=== PATIENT | female | born 1950 | race Caucasian/White ===

== ENCOUNTER 2022-11-27 13:03 | Outpatient (OUT) | payer MEDICARE, OTHER, SELFPAY ==
--- NOTE | 2022-11-27 | RT_ITS ---
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 Findings were considered accurate and reproducible. Both pre- and post-bronchodilator values utilized for spirometry. No prior studies available for comparison. Spirometry (based on pre-bronchodilator values): -FEV1/FVC: Normal @ 76% -FEV1: Mildly reduced @ 76% -FVC: Mildly reduced @ 76% -There is no significant bronchodilator response. Lung volumes by plethysmography (based on pre-bronchodilator values): -RV: Normal @ 82% -TLC: Normal @ 87% Diffusion capacity: -DLCO: Mild reduction @ 72% when corrected for Hb 13.9g/dL Flow-volume loop: -Mild restrictive pattern Impressions: -Non-diagnostic spirometry with normal lung volumes and mild diffusion impairment. This pattern can be seen in, but not restricted to, cardiopulmonary vascular disorders, early interstitial lung disease, and early emphysema. Clinical correlation required. Electronically Signed On 11-29-2022 18:04:11 EDT by Channing Pineda
[2022-11-27] MEDS: ALBUTEROL SULFATE 2.5 MG/3 ML VIAL NEB IH (14:00)
== END 2022-11-27 13:04 ==
LOC: CARD 13:05
PROVIDERS: PCP Family Medicine; Visit Provider Internal Medicine Interventional Cardiology
DX: R06.02 Shortness of breath (principal); R94.2 Abnormal results of pulmonary function studies
CPT/HCPCS: 94060; 94726; 94729

== ENCOUNTER → 2022-11-27 | Outpatient (OUT) | payer MEDICARE, OTHER, SELFPAY ==
[2022-11-27 14:42] LABS: Bilirubin Urine NEGATIVE (NEGATIVE); Blood Urine SMALL (NEGATIVE); Clarity Urine CLEAR (CLEAR); Color Urine YELLOW (YELLOW); Glucose Urine UA 500 mg/dL (NEGATIVE); Ketones Urine TRACE mg/dL (NEGATIVE); Leukocyte Esterase Urine MODERATE (NEGATIVE); Nitrite Urine NEGATIVE (NEGATIVE); Protein Urine 100 mg/dL (NEG/TRACE); Specific Gravity Urine >=1.030 (1.005-1.025); pH Urine 5.5 (5.0-9.0)
== END ==
LOC: LAB 13:00
PROVIDERS: PCP Family Medicine; Visit Provider Family Medicine
DX: R30.0 Dysuria (principal)
CPT/HCPCS: 81003; 87086

== ENCOUNTER 2023-01-01 13:54 | Outpatient (OUT) | payer MEDICARE, OTHER, SELFPAY ==
--- NOTE | 2023-01-01 13:57 | XR_ITS ---
The [address] [address] Patient Name: MARIAMA REYES MRN: [id number] date: 1950 Sex: F Assigned Patient Location: [facility] Current Patient Location: [facility] Accession/Order Number: [id number] Exam Date: 01/01/2023 14:06 Report Date: 01/01/2023 14:30 At the request of: GARRISON BELL Procedure: XR abdomen 1V EXAM: XR abdomen 1V HISTORY: Dysuria R30.0 COMPARISON: None. TECHNIQUE: AP view of the abdomen. FINDINGS: Nonobstructive bowel gas pattern is noted. There is no suspicious calcification. The osseous structures are intact. XR/XR abdomen 1V IMPRESSION: Nonobstructive bowel gas pattern. Electronically authenticated by: LUCRECIA LOTT Date: 01/01/2023 14:30
== END 2023-01-01 13:55 | disposition home or self-care (01) ==
LOC: RAD 13:54
PROVIDERS: PCP Family Medicine; Visit Provider Family Medicine
DX: R30.0 Dysuria (principal)
CPT/HCPCS: 74018

== ENCOUNTER 2023-08-16 08:40 | Emergency (ER) | payer MEDICARE, OTHER, SELFPAY ==
[2023-08-16] VITALS (33 sets, daily range): BP systolic 134–178; BP diastolic 59–90; PULSE 69–103; RESP 3–26; TEMP 37.1; O2SAT 90–98; BMI 54.9
--- NOTE | 2023-08-16 08:48 | ED.GENADUL1 ---
HPI - General Adult General Chief complaint: Chest Pain Stated complaint: CHEST PAIN Time Seen by Provider: 08/16/23 08:46 History of Present Illness HPI narrative: Patient is a 72-year-old female who is presenting to the ER with chief complaint of anterior chest wall pain since Saturday. Patient took Tylenol once 3 days ago that did not help, she has not taken anything else for her pain. Patient feels that her pain has increased since approximately 1:00 last night. Patient has pain with deep inspiration, twisting, turning, bending over. Patient does not recall doing any type of heavy lifting, twisting or turning. Patient has mild nausea, no abdominal pain, no bowel or bladder changes. Patient said that she was very sick in May with a lot of other family members. Patient was never seen or evaluated by medical care at that time, patient had flulike symptoms and stayed at home. Patient stated that she was very sedentary for several weeks, 2 to 4 weeks. Patient does use her 2 feet to ambulate, patient does not get around much at home however. Patient is not bedridden. Patient daughter is at bedside, patient's daughter used to be a medical facilities section director. Patient has no headache. Patient has severe pain with minimal, minimal tenderness to palpation to the left anterior chest wall, midsternal and parasternal chest wall. She has no rash. Patient did initially say that she does not think this is musculoskeletal, she knows how it feels, and this is different. However patient has severe pain with minimal, minimal palpation to the anterior chest wall. Patient states the breathing is worse when she is laying down flat, when she sits up in a 90 degree angle the breathing and pain is better, she has been sleeping upright in a bed that can recline upwards. No new swelling to her arms, abdomen, or legs. All systems are negative except as noted/marked. All systems reviewed and otherwise negative. Nurses note and vital signs reviewed and patient is not hypoxic. General: The patient appears well and in no apparent distress. Patient is resting comfortably on cart. Patient is not toxic, lethargic, or listless Skin: Warm, dry, no pallor noted. There is no rash noted. No petechiae, purpura. Head: Normocephalic, atraumatic Eye: Normal conjunctiva, no drainage, EOMI. PERRL Ears, Nose, Mouth, and Throat: oral mucosa is moist. Nares patent. Mouth without vesicles. Cardiovascular: Regular Rate and Rhythm, no murmur, gallop, rub; patient has severe reproducible tenderness to palpation to the left anterior chest wall, midsternal, parasternal anterior chest wall with extremely light palpation. No rash. Patient's pain to the anterior chest wall and ease of breathing is significantly better when she is sitting upright in bed versus laying down. Respiratory: Patient is in no distress, no accessory muscle use, lungs are clear to auscultation, no wheezing, rales or rhonchi Back: non-tender, no CVA tenderness bilaterally to percussion. No CT LS midline pain GI: Soft, obese, no midepigastric tenderness to palpation, no tenderness to palpation, no masses appreciated. No rebound, guarding, or rigidity noted. No distention Musculoskeletal: Patient has full range of motion of all of the extremities, no motor, sensory, or focal neurological deficits Neurological: A&O x4, normal speech Psychiatric: Cooperative Related Data Home Medications Medication Instructions Recorded Confirmed aspirin 81 mg tablet,delayed 81 mg PO DAILY 08/16/23 08/16/23 release (Adult Aspirin Regimen) atorvastatin 80 mg tablet 80 mg PO DAILY 08/16/23 08/16/23 carvedilol 6.25 mg tablet 6.25 mg PO Q12H 08/16/23 08/16/23 cholecalciferol (vitamin D3) 125 125 mcg PO DAILY 08/16/23 08/16/23 mcg (5,000 unit) tablet (Vitamin D3) ezetimibe 10 mg tablet 10 mg PO DAILY 08/16/23 08/16/23 fexofenadine-pseudoephedrine ER 1 tab PO DAILY 08/16/23 08/16/23 180 mg-240 mg tablet,ext.release 24 hr (Nevaeh-D 24 Hour) glipizide 10 mg tablet 5 mg PO DAILY 08/16/23 08/16/23 Allergies Allergy/AdvReac Type Severity Reaction Status Date / Time acetaminophen [From Percocet] AdvReac Mild Nausea Verified 08/16/23 08:53 oxycodone [From Percocet] AdvReac Mild Nausea Verified 08/16/23 08:53 [facility] Medical History (Updated 08/16/23 @ 13:34 by Jacinto Dhaliwal MD) RSV (respiratory syncytial virus infection) ?B33.8 - Other specified viral diseases (ICD-10) Hyperlipidemia ?E78.5 - Hyperlipidemia, unspecified (ICD-10) Hypertension ?I10 - Essential (primary) hypertension (ICD-10) Diabetes ?E11.9 - Type 2 diabetes mellitus without complications (ICD-10) Surgical History (Updated 08/16/23 @ 09:36 by Linette Maldonado) H/O right heart catheterization ?Z98.890 - Other specified postprocedural states (ICD-10) Social History Smoking status: Never smoker Exam Constitutional Vital Signs, click to edit/add: Last Vital Signs Temp 98.7 F 08/16/23 08:47 Pulse 75 08/16/23 13:10 Resp 13 08/16/23 13:10 BP 136/74 08/16/23 13:00 Pulse Ox 97 08/16/23 13:10 O2 Del Method Room Air 08/16/23 09:17 Course Vital Signs Vital signs: Vital Signs Temperature 98.7 F 08/16/23 08:47 Pulse Rate 84 08/16/23 08:47 Respiratory Rate 22 08/16/23 08:47 Blood Pressure 164/90 H 08/16/23 08:47 Pulse Oximetry 95 08/16/23 08:47 Oxygen Delivery Method Room Air 08/16/23 08:47 Temperature 98.7 F 08/16/23 08:47 Pulse Rate 75 08/16/23 13:10 Respiratory Rate 13 08/16/23 13:10 Blood Pressure 136/74 08/16/23 13:00 Pulse Oximetry 97 08/16/23 13:10 Oxygen Delivery Method Room Air 08/16/23 09:17 Medical Decision Making MDM Narrative Medical decision making narrative: Patient does have signs of anterior chest wall pain, also skeletal pain, costochondritis. Patient is breathing easier and the pain is much better when she is sitting upright versus laying down. EKG, IV, lab work was done. D-dimer was elevated, patient had a CT of the chest to rule out PE 1330 patient has no significant findings on her CTA of her chest. Patient has a right soft tissue musculoskeletal mass/hematoma that was discussed at bedside. A copy of patient's CT report was given to her, she will follow-up with her PCP Dr. Campo in the office to have follow-up studies as needed. Education on chest pain, chest wall pain, costochondritis, pleurisy was done at bedside and on discharge paperwork. No questions at discharge. Lab Data Labs: Lab Results 08/16/23 08/16/23 Range/Units 09:15 12:46 WBC 7.0 (4.0-11.0) 10^3/uL RBC 3.79 L (4.20-5.40) 10^6/uL Hgb 11.6 L (12.0-16.0) g/dL Hct 36.1 (36.0-48.0) % MCV 95.3 (81.0-99.0) fL MCH 30.6 (26.7-34.0) pg MCHC 32.1 (29.9-35.2) g/dL RDW 12.3 (11.0-15.0) % Plt Count 214 (150-450) 10^3/uL MPV 10.3 (9.5-13.5) fL Neut % (Auto) 61.6 (43.0-75.0) % Lymph % (Auto) 24.4 (20.5-60.0) % [place] % (Auto) 6.3 (1.7-12.0) % Eos % (Auto) 6.5 (0.9-7.0) % Baso % (Auto) 0.9 (0.2-2.0) % Neut # (Auto) 4.3 (1.4-6.5) 10^3/uL Lymph # (Auto) 1.7 (1.2-3.8) 10^3/uL [place] # (Auto) 0.4 (0.3-0.8) 10^3/uL Eos # (Auto) 0.5 (0.0-0.7) 10^3/uL Baso # (Auto) 0.1 (0.0-0.1) 10^3/uL Abs Immat Gran (auto) 0.02 (0.00-0.03) 10^3/uL Imm/Tot Granulo (auto) 0.3 (0.0-0.5) % D-Dimer 0.72 H* (<=0.59) mg/L FEU Sodium 144 (136-145) mmol/L Potassium 4.3 (3.5-5.1) mmol/L Chloride 106 (98-107) mmol/L Carbon Dioxide 28.5 (21.0-32.0) mmol/L Anion Gap 13.8 BUN 23.0 H (7.0-18.0) mg/dL Creatinine 1.21 H (0.55-1.02) mg/dL Est GFR ( Amer) 53 L (>=60) Est GFR (Non-Af Amer) 44 L (>=60) BUN/Creatinine Ratio 19.0 Glucose 214 H (74-106) mg/dL Calcium 9.1 (8.5-10.1) mg/dL Total Bilirubin 0.6 (0.2-1.0) mg/dL AST 17 (15-37) U/L ALT 22 (14-59) U/L Alkaline Phosphatase 100 (46-116) U/L Troponin I High Sens 12.0 (4.0-51.3) pg/mL NT-Pro-B Natriuret Pep 447.0 (<=900.0) pg/mL Total Protein 6.8 (6.4-8.2) g/dL Albumin 3.1 L (3.4-5.0) g/dL Globulin 3.7 g/dL Albumin/Globulin Ratio 0.8 Lipase 15.0 L (16.0-77.0) U/L POC Glucose 191 H (74-106) mg/dL ECG Data Attestation: I personally reviewed and interpreted this ECG as follows: (EKG interpretation. Normal sinus rhythm 84 bpm. Left axis deviation. No acute ST elevation, no acute ectopy. QTc of 403. Artifact noted,) Discharge Plan Discharge Chief Complaint: Chest Pain Clinical Impression: Acute chest wall pain, Mass of soft tissue, Chest pain, Acute costochondritis Patient Disposition: Home, Self-Care Condition: Fair Prescriptions / Home Meds: No Action glipizide 10 mg tablet 5 mg PO DAILY ezetimibe 10 mg tablet 10 mg PO DAILY carvedilol 6.25 mg tablet 6.25 mg PO Q12H atorvastatin 80 mg tablet 80 mg PO DAILY aspirin [Adult Aspirin Regimen] 81 mg tablet,delayed release (DR/EC) 81 mg PO DAILY cholecalciferol (vitamin D3) [Vitamin D3] 125 mcg (5,000 unit) tablet 125 mcg PO DAILY fexofenadine-pseudoephedrine [Nevaeh-D 24 Hour] 180-240 mg tablet extended release 24 hr 1 tab PO DAILY Instructions: Chest Pain (ED), Pleurisy (ED), Costochondritis (ED), Chest Wall Pain (ED), Hematoma (ED) Additional Instructions: Follow-up with Dr. Campo. A copy of CT of the chest report was given to. Review this with Dr. Campo for follow-up future follow-up studies of right soft tissue mass/hematoma. Use Tylenol as needed for pain. Use ice 20 minutes on, 20 minutes off. Education on pleurisy was given to you for educational purposes only. Stand Alone Forms: Portal Instructions Referrals: Giana Campo MD [Primary Care Provider] - 1 week
--- NOTE | 2023-08-16 08:56 | ECG_ITS ---
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
--- NOTE | 2023-08-16 08:56 | XR_ITS ---
The [address] [address] Patient Name: MARIAMA REYES MRN: [id number] date: 1950 Sex: F Assigned Patient Location: ER Current Patient Location: ER Accession/Order Number: [id number] Exam Date: 08/16/2023 09:35 Report Date: 08/16/2023 09:47 At the request of: ESTHER NOLASCO Procedure: XR chest 2V EXAM: XR chest 2V HISTORY: cp COMPARISON: None. TECHNIQUE: PA and lateral views of the chest. FINDINGS: The cardiomediastinal silhouette is normal. No focal consolidation is identified. There is no pneumothorax. No pleural effusion is noted. The osseous structures are intact. XR/XR chest 2V IMPRESSION: No acute cardiopulmonary process. Electronically authenticated by: LUCRECIA LOTT Date: 08/16/2023 09:47
[2023-08-16 09:21] LABS: Basophils Absolute Auto 0.1 10^3/uL (0.0-0.1); Basophils Percent Auto 0.9 % (0.2-2.0); Eosinophils Absolute Auto 0.5 10^3/uL (0.0-0.7); Eosinophils Percent Auto 6.5 % (0.9-7.0); Hematocrit 36.1 % (36.0-48.0); Hemoglobin 11.6 g/dL (12.0-16.0); Immature Granulocytes Abs Auto 0.02 10^3/uL (0.00-0.03); Immature Granulocytes Pct Auto 0.3 % (0.0-0.5); Lymphocytes Absolute Auto 1.7 10^3/uL (1.2-3.8); Lymphocytes Percent Auto 24.4 % (20.5-60.0); Mean Corpuscular HGB Conc 32.1 g/dL (29.9-35.2); Mean Corpuscular Hemoglobin 30.6 pg (26.7-34.0); Mean Corpuscular Volume 95.3 fL (81.0-99.0); Mean Platelet Volume 10.3 fL (9.5-13.5); Monocytes Absolute Auto 0.4 10^3/uL (0.3-0.8); Monocytes Percent Auto 6.3 % (1.7-12.0); Neutrophils Absolute Auto 4.3 10^3/uL (1.4-6.5); Neutrophils Percent Auto 61.6 % (43.0-75.0); Platelet Count 214 10^3/uL (150-450); Red Blood Count 3.79 10^6/uL (4.20-5.40); Red Cell Distribution Width 12.3 % (11.0-15.0)
[2023-08-16 09:39] LABS: Alanine Aminotransferase 22 U/L (14-59); Albumin Globulin Ratio 0.8; Albumin Level 3.1 g/dL (3.4-5.0); Alkaline Phosphatase 100 U/L (46-116); Anion Gap 13.8; Aspartate Amino Transferase 17 U/L (15-37); Bilirubin Total 0.6 mg/dL (0.2-1.0); Calcium 9.1 mg/dL (8.5-10.1); Carbon Dioxide 28.5 mmol/L (21.0-32.0); Chloride 106 mmol/L (98-107); Estimated GFR (African America 53 (>=60); Estimated GFR (Non-African Ame 44 (>=60); Globulin 3.7 g/dL; Glucose 214 mg/dL (74-106); Potassium 4.3 mmol/L (3.5-5.1); Sodium 144 mmol/L (136-145); Total Protein 6.8 g/dL (6.4-8.2)
[2023-08-16] MEDS: KETOROLAC TROMETHAMINE 30 MG/ML VIAL 15 MG IVP (09:44)
[2023-08-16] MEDS: MORPHINE SULFATE 2 MG/ML SYRINGE IV (09:44)
[2023-08-16] MEDS: ASPIRIN 81 MG TAB.CHEW PO (09:44)
[2023-08-16 10:00] LABS: D Dimer 0.72 mg/L FEU (<=0.59)
--- NOTE | 2023-08-16 10:01 | CT_ITS ---
[address] [address] Patient Name: MARIAMA REYES MRN: [id number] date: 1950 Sex: F Assigned Patient Location: ER Current Patient Location: Accession/Order Number: [id number] Exam Date: 08/16/2023 10:55 Report Date: 08/16/2023 11:52 At the request of: ESTHER NOLASCO Procedure: CT angio chest EXAM: CT angio chest HISTORY: ddimer elevated chest pain COMPARISON: Chest study performed earlier today on 08/16/2023 TECHNIQUE: CT angiography chest study was performed with the use of intravenous contrast. Multiple axial images were obtained. Reformatted coronal and sagittal images were obtained. FINDINGS: There is a mild degree of motion artifact noted. No obvious focal filling defects seen within the pulmonary arteries to suggest emboli. Mild atherosclerotic calcification within a portion of the thoracic aortic arch. No evidence of thoracic aortic aneurysm, dissection or leak. No evidence of mediastinal, hilar or axillary lymphadenopathy. Visualized thyroid gland appears grossly unremarkable. Mild generalized groundglass density bilaterally, consider atelectatic and/or infiltrative changes. Areas of mild reticular density in the left lower lung field compatible with atelectatic and/or fibrotic changes. No significant pleural thickening. No evidence of pleural effusion. Bony chest wall appears grossly intact. Soft tissue prominence in the musculature on the right external to the bony thorax which may represent hematoma, mass is not excluded. Finding is noted on series 4 axial image 47 and series 7 and coronal image 42. There is soft tissue prominence measures approximately 4.1 x 2.6 x 4.1 cm in longitudinal, transverse and AP dimensions. Correlate clinically. Follow-up as needed. Rtfk-wj-rseipexx degenerative changes in the dorsal spine with slight convexity to the right. Mild elevation the right hemidiaphragm similar to prior study. CT/CT angio chest IMPRESSION: CT angiography chest study fails to demonstrate obvious pulmonary emboli. Atelectatic and/or infiltrative changes bilaterally as noted. Soft tissue prominence related to musculature on the right adjacent to the outer margin of the bony thorax which may represent hematoma, mass would be less likely though not excluded. Correlate clinically. Follow-up as needed. Electronically authenticated by: MANISHA LAY Date: 08/16/2023 11:52
[2023-08-16 12:48] LABS: Glucometer 191 mg/dL (74-106)
== END 2023-08-16 13:51 | disposition home or self-care (01) ==
PROVIDERS: Emergency Provider Emergency Medicine; PCP Family Medicine
DX: R07.89 Other chest pain (principal); R22.2 Localized swelling, mass and lump, trunk; Z79.82 Long term (current) use of aspirin; M94.0 Chondrocostal junction syndrome [Tietze]; Z79.84 Long term (current) use of oral hypoglycemic drugs; E78.5 Hyperlipidemia, unspecified; I10 Essential (primary) hypertension; E11.9 Type 2 diabetes mellitus without complications
CPT/HCPCS: 36415; 36416; 71046; 71275; 80053; 82948; 83690; 83880; 84484; 85025; 85378; 93005; 96374; 96375; 99285; J1885; J2270; Q9967

== ENCOUNTER 2023-09-12 13:25 | Outpatient (OUT) | payer MEDICARE, OTHER, SELFPAY ==
--- NOTE | 2023-09-12 13:29 | CT_ITS ---
[address] [address] Patient Name: MARIAMA REYES MRN: [id number] date: 1950 Sex: F Assigned Patient Location: CT Current Patient Location: Accession/Order Number: [id number] Exam Date: 09/12/2023 14:00 Report Date: 09/13/2023 06:47 At the request of: GARRISON BELL Procedure: CT chest wo/w con EXAMINATION: CT chest wo/w con HISTORY: Mass Of Right Axilla, Mass Of Chest Wall COMPARISON: CTA chest 08/16/2023 TECHNIQUE: Multi-planar CT images were obtained without and/or with IV contrast as indicated by examination type. Axial, Coronal, and Sagittal images. Dose reduction techniques were achieved by using automated exposure control and/or adjustment of mA and/or kV according to patient size and/or use of iterative reconstruction technique. FINDINGS: LUNGS: No visible pulmonary disease. PLEURA: No mass, effusion, or pneumothorax. VASCULATURE: No abnormality. LOPEZ: No mass or adenopathy. MEDIASTINUM: No mass or adenopathy. CARDIAC: No enlargement, pericardial thickening, or significant calcification. AORTA: No aneurysm or dissection. CHEST WALL: Asymmetric prominence of the musculature along the lateral right chest wall compared to left due to the serratus anterior musculature. BONES: No bone lesion or fracture. LIMITED ABDOMEN: No suspicious findings Limited images of the upper abdomen. OTHER: Negative. CT/CT chest wo/w con IMPRESSION: 1. Suspect incidental asymmetric appearance of lateral chest wall musculature of doubtful clinical significance. Remote intramuscular hematoma is not excluded but felt less likely. Electronically authenticated by: MIGUEL ANGEL CABALLERO Date: 09/13/2023 06:47
== END 2023-09-12 13:26 | disposition home or self-care (01) ==
LOC: CT 13:25
PROVIDERS: PCP Family Medicine; Visit Provider Family Medicine
DX: R22.31 Localized swelling, mass and lump, right upper limb (principal); R22.2 Localized swelling, mass and lump, trunk
CPT/HCPCS: 71270; Q9967

== ENCOUNTER 2023-09-20 08:49 | Outpatient (OUT) | payer MEDICARE, OTHER, SELFPAY ==
--- NOTE | 2023-09-20 09:00 | NM_ITS ---
Patient Name: MARIAMA REYES MR#: [id number] : 1950 Exam Date: 09/20/2023 Ordering Doctor: DANIELA COE M.D. RADIOLOGY REPORT PROCEDURE: NM YOEL PERF SPECT REST STR COMPARISON: None. INDICATIONS: DYSPNEA, CHEST PAIN TECHNIQUE: Exam Description: Stress/Rest two day protocol gated SPECT Rest Imagin.6 mCi Tc-99m Cardiolite IV on 09/20/2023 Stress Imaging 25.9 mCi Tc-99m Cardiolite IV on 10/07/2023 Exercise Protocol: 0.4 mg Lexiscan given IV Heart Rate (bpm): Rest: 81 Max: 97 PMHR: 65 Blood Pressure: Rest: 130/74 Max: 142/84 Symptoms: Rest and peak stress ECG findings were pending and the exercise portion of the study was pending per attending physician Dr. SAMPSON . For more details please see separate cardiac stress test report. FINDINGS: QUALITY OF STUDY: Good. PERFUSION DEFECT: LOCATION: Basal anterior. Mid-anterior. SIZE: Small (1-2 segments). SEVERITY: Mild. TYPE: Reversible. WALL MOTION: Normal. LV SIZE: Normal. 89 mL. TID / TCD: None; 1.0 LVEF: Normal. Calculated EF 70%. SUMMARY: Myocardial perfusion imaging study has ABNORMAL findings. CONCLUSION: 1. Small area of mildly decreased uptake in the anterior wall on stress images with reversibility on rest images, LAD distribution. Consider follow-up for further evaluation 2. Pending exercise test results Dictated by: Hema Julien MD on 10/07/2023 at 12:54 Approved by: Hema Julien MD on 10/07/2023 at 13:03
--- OUTSIDE RECORDS SUMMARY | 2023-09-20 09:10 | XMS_ITS | CCD ---
Author Organization [facility] Care Team Providers Care Patient Registration Clerk Name Role Phone Zena García Unavailable Jazz Nance Unavailable Eric Villanueva Unavailable MD Giana Bell Primary Care Provider MD Eric Villanueva Attending Provider GIANA BELL Primary Care Physician ZENA POTTER Attending Unavailable Giana Bell Unavailable Alka Hankins Unavailable MD Giana Bell Primary Care Provider [phone] MD Alka Hankins Attending Provider [phone] MD Eric Villanueva Attending Provider ANGELO García Attending Provider DR GIANA BELL Admitting Unavailable RAY, DR GIANA Jefferson Primary Care Unavailable [place], DR ANN MRAIE Gibbons Consulting Unavailable RAY, DR GIANA Jefferson Attending Unavailable RAY, DR GIANA Jefferson Consulting Unavailable BELL, DR GIANA Jefferson Admitting Unavailable BELL, DR GIANA Jefferson Consulting Unavailable BELL, DR GIANA Jefferson Primary Care Unavailable BELL, DR GIANA Jefferson Attending Unavailable RAY, DR GIANA Jefferson Primary Care Unavailable RIMA LOUIS Consulting Unavailable RIMA LOUIS Attending Unavailable RIMA LOUIS Admitting Unavailable RAY, DR GIANA Jefferson Primary Care Unavailable ERYN, DR RONALD De Guzman Attending Unavailable ERYN, DR RONALD De Guzman Admitting Unavailable COURTNEY, DR LUCRECIA Ellis Consulting Unavailable ERYN, DR RONALD De Guzman Consulting Unavailable YONIS PACHECO Consulting Unavailable RAY, DR GIANA Jefferson Primary Care Unavailable RAY, DR GIANA Jefferson Consulting Unavailable BELL, DR GIANA Jefferson Attending Unavailable BELL, DR GIANA Jefferson Admitting Unavailable BELL, DR GIANA Jefferson Admitting Unavailable BELL, DR GIANA Jefferson Primary Care Unavailable BELL, DR GIANA Jefferson Attending Unavailable ADA, DR MIGUEL ANGEL Ellis Consulting Unavailable BELL, DR GIANA Jefferson Consulting Unavailable ANN MARIE TINEO Consulting Unavailable BELL, DR GIANA Jefferson Admitting Unavailable BELL, DR GIANA Jefferson Primary Care Unavailable BELL, DR GIANA Jefferson Consulting Unavailable BELL, DR GIANA Jefferson Attending Unavailable WEI REED Consulting Unavailable BELL, DR GIANA Jefferson Primary Care Unavailable RIMA LOUIS Consulting Unavailable RIMA LOUIS Attending Unavailable RIMA LOUIS Admitting Unavailable BELL, DR GIANA Jefferson Admitting Unavailable BELL, DR GIANA Jefferson Primary Care Unavailable BELL, DR GIANA Jefferson Attending Unavailable MD Giana Bell Primary Care Provider MD Eric Villanueva Attending Provider [phone] MD Giana Bell Primary Care Provider MD Eric Villanueva Attending Provider Eric Villanueva Admitting Unavailable Bell, Giana E Primary Care Unavailable Eric Villanueva Attending Unavailable Alka Hankins Admitting Unavailable Alka Hankins Attending Unavailable Bell, Giana E Primary Care Unavailable Zena García Admitting Unavailable Zena García Attending Unavailable Bell, Giana E Primary Care Unavailable Eric Villanueva Attending Unavailable Bell, Giana E Primary Care Unavailable Kay, Eric Admitting Unavailable Bell, Giana E Primary Care Unavailable Eric Villanueva Attending Unavailable Kay, Eric Admitting Unavailable Kay, Eric Attending Unavailable Kay, Eric Admitting Unavailable Bell, Giana E Primary Care Unavailable Eric Villanueva Attending Unavailable Kay, Eric Admitting Unavailable Bell, Giana E Primary Care Unavailable Eric Villanueva Attending Unavailable Kay, Eric Admitting Unavailable Bell, Giana E Primary Care Unavailable RIMA LOUIS Attending Unavailable DANIELA HENDRICKS Attending Unavailable JAX TORRES Attending Unavailable Allergies Allergy Classification Reported Allergen(s) Allergy Type Date of Onset Reaction(s) Facility (20 sources) Acetaminophen / oxyCODONE; Translations: [acetaminophen-o xycodone] Drug Allergy 01-21-20 19 Unknown (qualifier value) [facility] (6 sources) oxyCODONE; Translations: [oxycodone] Drug Allergy 03-20-20 22 Vomiting, constipation [facility] (6 sources) Propoxyphene; Translations: [propoxyphene] Drug Allergy 03-20-20 22 Vomiting [facility] (2 sources) acetaminophen / propoxyphene; Translations: [acetaminophen-p ropoxyphene] Drug Allergy Unknown (qualifier value) [facility] (2 sources) Acetaminophen / oxyCODONE; Translations: [Percocet] Drug Allergy 07-28-19 21 [facility] (11 sources) Lisinopril Drug Allergy 01-20-20 19 Unknown [facility] Other (11 sources) metFORMIN Drug Allergy 01-20-20 19 Unknown [facility] Other (11 sources) NITROFURANTOIN, MACROCRYSTALS / Nitrofurantoin, Monohydrate Drug Allergy Unknown [facility] Other (3 sources) Allergies Reconciled Propensity to adverse reactions Unknown Chewse Other (3 sources) patient allergy list reviewed by nurse or physicia Propensity to adverse reactions 01-21-20 Comment:Done Chewse Other (11 sources) Darvocet A500 *ANALGESICS - OPIOID* Propensity to adverse reactions 01-21-20 19 Unknown [facility] Other (1 source) Acetaminophen / oxyCODONE; Translations: [OXYCODONE-ACETA MINOPHEN] Drug Allergy 09-07-19 [facility] (1 source) ADHESIVE TAPE-SILICONES; Translations: [ADHESIVE TAPE-SILICONES] Propensity to adverse reactions to drug (disorder) 08-04-19 03 [facility] (1 source) PROPOXYPHENE N-ACETAMINOPHEN; Translations: [PROPOXYPHENE N-ACETAMINOPHEN] Propensity to adverse reactions to drug (disorder) 09-07-19 21 [facility] Medications Current Medications Medication Drug Class(es) Dates Sig (Normalized) Sig (Original) Nevaeh Allergy 180 MG (11 sources) take 1 tablet by mouth once daily Nevaeh Allergy 180 MG 1 tablet Swallow whole with water; do not take with fruit juices. Orally Once a day Active Aspir-81 (20 sources) Aspir-81 Active aspirin 81 mg chewable tablet (17 sources) Platelet Aggregation Inhibitor, Nonsteroidal Anti-inflammatory Drug Start: 02-12-2023 take 1 tablet by mouth once daily Aspirin (Baby Aspirin) 81 mg Tablet,Chewable Active 81 MG PO Daily February 11, 2023 11:00pm take 1 tablet by mouth once ainsley y Aspir-Low 81 MG 1 tablet Orally Once a day Active atorvastatin 80 mg oral tablet (20 sources) HMG-CoA Reductase Inhibitor Start: 12-13-2020 take 80 mg by mouth once daily Atorvastatin Active 80 MG PO Daily December 12, 2020 11:00pm azithromycin 250 mg oral tablet (4 sources) Macrolide Antimicrobial Start: 06-07-2023 Azithromycin 250 MG as directed Orally 2 tabs po today, then 1 tab daily x 4 more days for 5 May, Active Start: 01-03-2022 Azithromycin 2 50 MG 2 tablet on the first day, then 1 tablet daily for 4 days Orally Once a day for 5 day(s) Dec, Active carvedilol 3.125 mg oral tablet (20 sources) alpha-Adrenergic Monika, beta-Adrenergic Monika Start: 08-07-2022 take 6.25 mg by mouth twice daily Carvedilol Active 6.25 MG PO Twice daily August 07, 2022 12:00am take 1 tablet by michael th every twelve hours Carvedilol 6.25 MG 1 tablet with food Orally Twice a day Active cholecalciferol 0.125 mg oral tablet (3 sources) Vitamin D Start: 02-12-2023 take 1 tablet by mouth once daily Cholecalciferol (Vitamin D3) (Vitamin D3) 125 mcg (5,000 unit) Tablet Active 5000 UNIT PO Daily February 11, 2023 11:00pm ciprofloxacin 250 mg oral tablet (6 sources) Quinolone Antimicrobial take 1 tablet by mouth every twelve hours Ciprofloxacin HCl 250 MG 1 tablet Orally every 12 hrs for 7 days Active estradiol 0.1 mg/g vaginal cream (1 source) Start: 08-16-2021 estradiol 0.1 mg/g vaginal cream 1 gm, Vaginal, MonThu, # 42.5 gm, Refills(s) 3, Pharmacy: [facility] [place] [address], 160, cm, 08/16/21 15:10:00 EST, Height/Length Dosing, 130, kg, 08/16/21 15:10:00 EST, Weight Dosing Start Date: 08/16/21 Status: Ordered ezetimibe 10 mg oral tablet (20 sources) Dietary Cholesterol Absorption Inhibitor Start: 08-07-2022 take 1 tablet by mouth once daily Ezetimibe (Zetia) 10 mg Tablet Active 10 MG PO Daily August 07, 2022 12:00am Start: 08-07-2022 take 1 tablet by michael th twice daily Ezetimibe (Zetia) 10 mg Tablet Active 10 MG PO Twice daily August 07, 2022 1:00am fexofenadine hydrochloride 180 mg oral tablet (6 sources) Histamine-1 Receptor Antagonist Start: 02-12-2023 take 1 tablet by mouth once daily Fexofenadine (Nevaeh) 180 mg Tablet Active 180 MG PO Daily February 11, 2023 11:00pm gabapentin 300 mg oral capsule (4 sources) Anti-epileptic Agent Start: 03-12-2022 take 1 capsule by mouth every twelve hours Gabapentin 300 MG 1 capsule Orally Twice a day for 30 day(s) Feb, Active glipiZIDE er 5 mg 24 hr extended release oral tablet (20 sources) Sulfonylurea Start: 08-07-2022 take 5 mg by mouth once daily Glipizide Active 5 MG PO Daily August 07, 2022 12:00am take 1 tablet by michael th 30 minutes before breakfast glipiZIDE 10 MG TAKE 1 TABLET BY MOUTH 3 0 MINUTES BEFORE BREAKFAST for 90 days Active take 1 tablet by michael th once daily 30 minutes before breakfast glipiZIDE 5 MG 1 tablet 30 minutes befor e breakfast Orally Once a day for 90 days Active Insulin Nph And Regular Antonette n (20 sources) Insulin Start: 02-12-2023 Insulin Nph An d Regular Human (Novolin 70-30 Flexpen U-100) 100 unit/mL (70-30) Insulin Pen Active 25 UNIT SUBCUT Daily February 11, 2023 11:00pm Start: 02-12-2023 Insulin Nph An d Regular Human (Novolin 70-30 Flexpen U-100) 100 unit/mL (70-30) Insulin Pen Active 25 UNIT SUBCUT Daily February 12, 2023 12:00am NovoLIN 70/30 (7 0-30) 100 UNIT/ML 25u Subcutaneous daily Active NovoLIN 70/30 (7 0-30) 100 UNIT/ML as directed Subcutaneous Active Novalin (1 source) Start: 08-16-2021 Novgabriele Nails n Start Date: 08/16/21 Status: Ordered ondansetron 4 mg disintegrating oral tablet (20 sources) Serotonin-3 Receptor Antagonist Start: 12-05-2022 take 1 tablet by mouth three times daily as needed Ondansetron 4 MG 1 tablet on the tongue and allow to dissolve Orally tid prn for 5 Nov, Active Start: 07-23-2021 End: 08-07-2022 take 4 mg by mouth four times daily Ondansetron Discontinued 4 MG PO Four times daily July 23, 2021 12:00am August 07, 2022 7:18am Start: 12-31-2020 End: 07-23-2021 take 4 mg by mouth every eight hours Ondansetron Discontinued 4 MG PO Q8H 14 December 30, 2020 11:00pm July 23, 2021 1:44pm Start: 12-13-2020 End: 12-30-2020 take 1 tablet by mouth three times daily Ondansetron Hcl (Zofran) 4 mg tablet Discontinued 4 MG PO Three times daily 9 3 December 12, 2020 11:00pm December 30, 2020 4:28am predniSONE 20 mg oral tablet (1 source) Start: 01-03-2022 take 1 tablet by mouth every twelve hours predniSONE 20 MG 1 tablet Orally 2 times a day for 5 day(s) Dec, Active Vitamin D-3 125 MCG (5000 UT) (20 sources) Vitamin D-3 125 MCG (5000 UT) as directed Orally Active Vitamin D3 5000 intl units oral tab (1 source) Start: 08-16-2021 take 1 tablet by mouth once daily Vitamin D3 5000 intl units oral tab mcg tab(s), Oral, Daily, Refills(s) 0 Start Date: 08/16/21 Status: Ordered Completed/Discontinued Medications Medication Drug Class(es) Dates Sig (Normalized) Sig (Original) acetaminophen 325 mg / HYDROcodone bitartrate 5 mg oral tablet (5 sources) Opioid Agonist Start: 07-23-2021 End: 08-07-2022 take 1 tablet by mouth every six hours Hydrocodone-Acetam inophen Discontinued 1 TAB PO Q6H 10 July 23, 2021 August 07, 2022 7:18am cefdinir 300 mg oral capsule (5 sources) Cephalosporin Antibacterial Start: 12-31-2020 End: 07-23-2021 take 300 mg by mouth twice daily Cefdinir Discontinued 300 MG PO Twice daily 12 04December 30, 2020 11:00pm July 23, 2021 1:44pm cephalexin 500 mg oral capsule (10 sources) Cephalosporin Antibacterial Start: 07-23-2021 End: 08-07-2022 take 500 mg by mouth every eight hours Cephalexin Discontinued 500 MG PO Q8H 22 04July 23, 2021 12:00am August 07, 2022 7:21am Start: 12-13-2020 End: 12-30-2020 take 500 mg by mouth twice daily Cephalexin Discontinued 500 MG PO Twice daily 12 04December 12, 2020 11:00pm December 30, 2020 4:28am cyclobenzaprine hydrochloride 5 mg oral tablet (9 sources) Muscle Relaxant Start: 08-14-2022 take 1 tablet by mouth every twenty-four hours Cyclobenzaprine HCl 5 MG 1 tablet as needed Orally Once a day for 30 days Jul, Not-Taking dapagliflozin 5 mg oral tablet (7 sources) Sodium-Glucose Cotransporter 2 Inhibitor Start: 12-13-2020 End: 12-31-2020 take 1 tablet by mouth once daily Dapagliflozin Propanediol (Farxiga) 5 mg tablet Discontinued 5 MG PO Daily December 12, 2020 11:00pm December 31, 2020 1:36pm Durolane (20 sources) Start: 02-27-2022 Durolane Feb, 60 mg Insulin Nph And Regular Human (5 sources) Start: 12-30-2020 End: 02-12-2023 inject 25 [IU] by subcutaneous injection once daily Insulin Nph And Regular Human Discontinued 25 UNIT SUBCUT Daily December 29, 2020 11:00pm February 12, 2023 8:58am Start: 12-30-2020 End: 02-12-2023 inject 25 [IU] by subcutaneous injection once daily Insulin Nph And Regular Human Discontinued 25 UNIT SUBCUT Daily December 30, 2020 12:00am February 12, 2023 9:58am Start: 12-30-2020 inject 25 [IU] by sosa bcutaneous injection once daily Insulin Nph And Regular Human Active 25 UNIT SUBCUT Daily December 30, 2020 12:00am Start: 12-30-2020 inject 25 [IU] by sosa bcutaneous injection once daily Insulin Nph And Regular Human Active 25 UNIT SUBCUT Daily December 29, 2020 11:00pm nitrofurantoin, macrocrystals 25 mg / nitrofurantoin, monohydrate 75 mg oral capsule (5 sources) Nitrofuran Antibacterial Start: 12-13-2020 End: 12-13-2020 take 100 mg by mouth twice daily Nitrofurantoin Monohyd/M-Cryst Discontinued 100 MG PO Twice daily December 12, 2020 11:00pm December 13, 2020 8:52pm pregabalin 75 mg oral capsule (13 sources) Start: 10-23-2022 End: 02-12-2023 take 75 mg by mouth once daily Pregabalin Discontinued 75 MG PO Daily October 22, 2022 11:00pm February 12, 2023 8:57am Start: 08-28-2022 [facility] Lyrica 75 MG 1 capsule Orally Twice a day for 90 days Aug, Active promethazine hydrochloride 12.5 mg oral tablet (5 sources) Phenothiazine Start: 12-13-2020 End: 12-30-2020 take 12.5 mg by mouth three times daily Promethazine Discontinued 12.5 MG PO Three times daily December 12, 2020 11:00pm December 30, 2020 4:28am traMADol hydrochloride 50 mg oral tablet (20 sources) Opioid Agonist Start: 02-27-2022 take 1 tablet by mouth every twenty-four hours traMADol HCl 50 MG 1 tablet as needed Orally Once a day for 3 days Feb, Not-Taking/PRN triamcinolone acetonide 40 mg/ml injectable suspension (20 sources) Corticosteroid Start: 10-09-2022 Kenalog-40 Sep, 20 mg Start: 02-06-2022 Kenalog-40 October, 40 mg Start: 08-08-2021 Kenalog -40 mg Jul, 40 mg Start: 03-22-2021 Kenalog -40 mg Feb, 40 mg Start: 11-16-2020 Kenalog -40 mg October, 40 mg Problems Active Problems Problem Classification Problem Date Documented Date Episodic/Chronic Abdominal pain (6 sources) Pelvic and perineal pain; Translations: [Pelvic and perineal pain] Episodic Acute bronchitis (7 sources) Acute bronchitis due to respiratory syncytial virus; Translations: [Acute bronchiolitis due to respiratory syncytial virus] Onset: 2 Episodic Asthma (3 sources) Uncomplicated asthma; Translations: [Unspecified asthma, uncomplicated] Chronic Chronic obstructive pulmonary disease and bronchiectasis (4 sources) Bronchitis, not specified as acute or chronic; Translations: [Bronchitis] Onset: 2 Resolved: 2 Episodic Coronary atherosclerosis and other heart disease (2 sources) 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; Translations: [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] Onset: 2 Chronic Diabetes mellitus with complications (20 sources) Type 2 diabetes mellitus; Translations: [Type 2 diabetes mellitus with hyperglycemia] Onset: 3 Chronic Diabetes mellitus without complication (4 sources) Diabetes mellitus; Translations: [Type 2 diabetes mellitus without complication] Onset: 9 08-16-2021 Chronic Diabetes mellitus without complication (5 sources) Hyperglycemia; Translations: [Hyperglycemia, unspecified] 12-13-2020 Episodic Disorders of lipid metabolism (20 sources) Hypercholesterolemia; Translations: [Mixed hyperlipidemia] Onset: 9 08-16-2021 Chronic Essential hypertension (20 sources) Essential hypertension; Translations: [Essential (primary) hypertension] Onset: 3 Chronic Genitourinary symptoms and ill-defined conditions (14 sources) Increased frequency of urination; Translations: [Urinary symptoms ] 08-16-2021 Episodic Glaucoma (1 source) Glaucoma 08-16-2021 Chronic Hypertension with complications and secondary hypertension (6 sources) Hypertensive urgency; Translations: [Hypertensive urgency ] Onset: 2 Chronic Immunizations and screening for infectious disease (3 sources) Vaccination given; Translations: [Encounter for immunization] Episodic Inflammation; infection of eye (except that caused by tuberculosis or sexually transmitteddisease) (3 sources) Conjunctivitis; Translations: [Unspecified conjunctivitis] Episodic Malaise and fatigue (3 sources) Fatigue; Translations: [Other fatigue] Episodic Menopausal disorders (4 sources) Menopausal problem; Translations: [Atrophic vaginitis] 08-16-2021 Chronic Mood disorders (3 sources) Major depression, single episode; Translations: [Major depressive disorder, single episode, unspecified] Chronic Nausea and vomiting (4 sources) Nausea with vomiting, unspecified; Translations: [Nausea] Episodic Noninfectious gastroenteritis (1 source) Noninfective gastroenteritis and colitis, unspecified Episodic Nonspecific chest pain (9 sources) Chest pain, unspecified; Translations: [Chest pain] Onset: 2 Episodic Osteoarthritis (20 sources) Osteoarthritis of left knee joint; Translations: [Unilateral primary osteoarthritis, left knee] Onset: 1 Resolved: 2 Chronic Other acquired deformities (20 sources) Lumbar spondylolisthesis; Translations: [Spondylolisthesis, lumbar region] Episodic Other aftercare (20 sources) Long-term current use of insulin; Translations: [long term acute care registered nurse (current) use of insulin] Episodic Other aftercare (2 sources) long term acute care registered nurse (current) use of insulin Episodic Other circulatory disease (3 sources) Elevated blood-pressure reading without diagnosis of hypertension; Translations: [Elevated blood-pressure reading, without diagnosis of hypertension] Episodic Other connective tissue disease (20 sources) History of total knee arthroplasty; Translations: [Presence of right artificial knee joint] Chronic Other connective tissue disease (2 sources) Presence of right artificial knee joint; Translations: [History of total right knee replacement Z96.651] Onset: 1 Resolved: 2 Chronic Other connective tissue disease (1 source) Other enthesopathies, not elsewhere classified Episodic Other connective tissue disease (3 sources) Muscle pain; Translations: [MYALGIA, UNSPECIFIED SITE] Episodic Other connective tissue disease (11 sources) Trochanteric bursitis; Translations: [Trochanteric bursitis, unspecified hip] Episodic Other connective tissue disease (3 sources) Trochanteric bursitis, unspecified hip Episodic Other diseases of kidney and ureters (1 source) Kidney disease 08-16-2021 Episodic Other ear and sense organ disorders (3 sources) Otitis externa of right ear; Translations: [Unspecified otitis externa, right ear] Chronic Other lower respiratory disease (1 source) Dyspnea on exertion 08-16-2021 Episodic Other lower respiratory disease (3 sources) Dyspnea; Translations: [Other forms of dyspnea] Episodic Other nervous system disorders (20 sources) Chronic pain; Translations: [Other chronic pain] Chronic Other nervous system disorders (20 sources) Carpal tunnel syndrome of left wrist; Translations: [Carpal tunnel syndrome, left upper limb] Chronic Other nervous system disorders (6 sources) Other chronic pain Onset: 2 Resolved: 2 Chronic Other nervous system disorders (18 sources) Carpal tunnel syndrome; Translations: [Carpal tunnel syndrome, left upper limb] Chronic Other nervous system disorders (1 source) Carpal tunnel syndrome, left upper limb Chronic Other nervous system disorders (1 source) Other chronic pain; Translations: [Other chronic pain] Onset: 3 Chronic Other non-traumatic joint disorders (1 source) Pain in left wrist Episodic Other non-traumatic joint disorders (3 sources) Shoulder joint pain; Translations: [Pain in left shoulder] Episodic Other non-traumatic joint disorders (3 sources) Pain in right hip joint; Translations: [Pain in right hip] Episodic Other nutritional; endocrine; and metabolic disorders (4 sources) Body mass index 40+ - severely obese; Translations: [Body mass index (BMI) 50.0-59.9, adult] 08-16-2021 Chronic Other nutritional; endocrine; and metabolic disorders (3 sources) Morbid (severe) obesity due to excess calories; Translations: [MORBID SEVERE OBES D/T EXCESS AZEB] Onset: 2 Chronic Other nutritional; endocrine; and metabolic disorders (3 sources) Body mass index (BMI) 50.0-59.9, adult; Translations: [BODY MASS INDEX BMI 50.0-59.9 ADULT] Onset: 2 Chronic Other nutritional; endocrine; and metabolic disorders (3 sources) Abnormal weight gain; Translations: [Abnormal weight gain] Episodic Other screening for suspected conditions (not mental disorders or infectious disease) (7 sources) Abnormal electrocardiogram [ECG] [EKG]; Translations: [Abnormal results of cardiovascular function studies] Onset: 2 Episodic Other skin disorders (1 source) Disorder of the skin and subcutaneous tissue, unspecified Episodic Otitis media and related conditions (3 sources) Chronic nonsuppurative otitis media of right ear; Translations: [Other chronic nonsuppurative otitis media, right ear] Chronic Septicemia (except in labor) (5 sources) Sepsis; Translations: [Sepsis, unspecified organism] 12-30-2020 Episodic Skin and subcutaneous tissue infections (5 sources) Cellulitis of scalp; Translations: [Cellulitis of head [any part, except face]] 12-13-2020 Episodic Spondylosis; intervertebral disc disorders; other back problems (20 sources) Inflammation of sacroiliac joint; Translations: [Sacroiliitis, not elsewhere classified] Onset: 2 Resolved: 2 Chronic Spondylosis; intervertebral disc disorders; other back problems (8 sources) Sciatica; Translations: [Stenosis of lumbar vertebral foramen] 08-16-2021 Episodic Superficial injury; contusion (3 sources) Contusion of lower leg; Translations: [Contusion of right lower leg, initial encounter] Episodic Unclassified (1 source) CONTACT W/AND (SUSP) EXPOS COVID-19; Translations: [CONTACT W/AND (SUSP) EXPOS COVID-19] Onset: 2 Unclassified (1 source) Unilateral primary osteoarthritis, left knee; Translations: [Unilateral primary osteoarthritis, left knee] Onset: 3 Unclassified (1 source) Pain in left wrist; Translations: [Pain in left wrist] Onset: 3 Urinary tract infections (14 sources) Urinary tract infectious disease; Translations: [Urinary tract infection, site not specified] 07-23-2021 Episodic Past or Other Problems Problem Classification Problem Date Documented Da te Episodic/Chronic Other aftercare (1 source) Other custodial (current) drug therapy; Translations: [OTH ASSISTED CURRENT DRUG THERAPY] Onset: 06-14-2022 Episodic Other lower respiratory disease (3 sources) Shortness of breath; Translations: [SHORTNESS OF BREATH] Onset: 06-10-2022 Episodic Other lower respiratory disease (1 source) Dyspnea, unspecified; Translations: [DYSPNEA UNSPECIFIED] Onset: 01-28-2022 Episodic Other lower respiratory disease (2 sources) Other forms of dyspnea; Translations: [Other forms of dyspnea] Onset: 11-15-2023 Episodic Other non-traumatic joint disorders (5 sources) Pain in left knee; Translations: [Acute pain of left knee M25.562] Onset: 03-22-2021 Resolved: 02-27-2022 Episodic Other non-traumatic joint disorders (4 sources) Pain in right hip; Translations: [PAIN IN RIGHT HIP] Onset: 07-26-2022 Episodic Other non-traumatic joint disorders (1 source) Pain in left shoulder; Translations: [PAIN IN LEFT SHOULDER] Onset: 07-29-2022 Episodic Other nutritional; endocrine; and metabolic disorders (1 source) Abnormal weight gain; Translations: [ABNORMAL WEIGHT GAIN] Onset: 01-28-2022 Episodic Residual codes; unclassified (1 source) Localized edema; Translations: [LOCALIZED EDEMA] Onset: 06-14-2022 Episodic Unclassified (1 source) Cough, unspecified type R05.9 Onset: 01-03-2022 Resolved: 01-03-2022 Unclassified (1 source) Lumbar pain M54.50 Onset: 03-12-2022 Resolved: 03-12-2022 Results Test Name Value Interpretation Reference Range Facility 36on 09-12-2023 36 Patient is scheduled for apt tomorrow with Dr. Hendricks. [facility] 36on 09-11-2023 36 Patient was seen in [facility] ED in Jul for chest pain. Says she's still having it often. She doesn't want to wait until 09/17 to see you in the office. Did you want testing prior to an office visit? I uploaded all the ED records into her [employer] for your review. Please advise. Thanks. [facility] 36on 09-04-2023 36 I received a call from Dr. Bell's office. She asked me to reach out to Libra to get her scheduled for a follow up. She told me she's been having left-sided chest pain, and was evaluated in the ED recently. I LM on patient's VM asking her to return my call. [facility] Office Visiton 05-08-2023 Follow-up visit [id number] Libra Noonan 1950 F Date Provider Department Center 05/08/2023 [facility] Family History Problem Relation Age of Onset Rheumatic fever Mother Heart failure Mother Stroke Mother Other Mother Comments: She is unsure if this was a defibrillator Stroke Father Family Status - Relation Status Age at Mother Father Level of Service:61671 ND OFFICE/OUTPATIENT ESTABLISHED LOW MDM 20-29 MIN Reason for Visit and Comments: Follow-up [294882] Hypertension [943355] Coronary Artery Disease [187] Hyperlipidemia [182] [facility] XR lumbar spine AP/LAT/FLX/E XTon 04-23-2023 XR lumbar spine AP/LAT/FLX/EXT [facility] [place] [address] [place] [address] XRay Report Signed Patient: Libra Noonan MR#: [id number] : 1950 Acct:[id number] Age/Sex: 72 / F ADM Date: 04/23/23 Loc: [facility] Room: Type: [facility] Attending Dr: Eric Villanueva MD Copies to: Eric Villanueva MD Ordering Provider: Eric Villanueva MD Date of Service: 04/23/23 XR/XR lumbar spine AP/LAT/FLX/EXT: PAIN AP with lateral neutral, flexion and extension views of the Lumbar Spine HISTORY: Low back pain extending to the right hip COMPARISON: None POSTSURGICAL CHANGES: None BONY ALIGNMENT: Mild degenerative listhesis. No hypermobility. 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 SOFT TISSUES: Unremarkable BONY MINERALIZATION:Diffus e osteopenia XR/XR lumbar spine AP/LAT/FLX/EXT IMPRESSION: No hypermobility. Degenerative change. Impression dictated by: Jacinto Bolden M.D.04/23/2023 3:43 PM Dictation Location: [place] [address] Transcribed By: [facility] 04/23/23 1543 Dictated By: Jacinto Bolden DO 04/23/23 1539 Signed By: 04/23/23 1543 [facility] Office Visiton 11-13-2022 Follow-up visit [id number] Libra Noonan 1950 F Date Provider Department Center 11/13/2022 [facility] Family History Problem Relation Age of Onset Rheumatic fever Mother Heart failure Mother Stroke Mother Other Mother Comments: She is unsure if this was a defibrillator Stroke Father Family Status - Relation Status Age at Mother Father Level of Service:97956 ND OFFICE/OUTPATIENT ESTABLISHED MOD MDM 30-39 MIN Reason for Visit and Comments: Coronary Artery Disease [187] Hypertension [692830] Hyperlipidemia [182] Normal [facility] CBC AUTO DIFFon 11-06-2022 BASO # 0.0 103/ul Normal 0.0-0.1 [facility] Comment on above: Performed By: #### C BC #### [facility] [address] [place] [address] Dr. Dylan Santana Basophils/100 WBC (Bld) 0.2 % Normal 0.2-2.0 [facility] Comment on above: Performed By: #### C BC #### [facility] [address] [place] [address] Dr. Dylan Santana EO # 0.0 103/ul Normal 0.0-0.7 [facility] Comment on above: Performed By: #### C BC #### [facility] [address] [place] [address] Dr. Dylan Santana Eosinophils/100 WBC (Bld) 0.2 % Critically low 0.9-7.0 [facility] Comment on above: Performed By: #### C BC #### [facility] [address] [place] [address] Dr. Dylan Santana Erythrocyte distribution width (RBC) [Ratio] 12.1 % Normal 11.0-15.0 [facility] Comment on above: Performed By: #### C BC #### [facility] [address] [place] [address] Dr. Dylan Santana Hematocrit (Bld) [Volume fraction] 42.7 % Normal 36.0-48.0 [facility] Comment on above: Performed By: #### C BC #### [facility] [address] [place] [address] Dr. Dylan Santana Hemoglobin (Bld) [Mass/Vol] 13.9 g/dL Normal 12.0-16.0 [facility] Comment on above: Performed By: #### C BC #### [facility] [address] [place] [address] Dr. Dylan Santana IG # 0.05 10e3/ul Critically high 0.00-0.03 [facility] Comment on above: Performed By: #### C BC #### [facility] [address] [place] [address] Dr. Dylan Santana IG % 0.5 % Normal 0.0-0.5 [facility] Comment on above: Performed By: #### C BC #### [facility] [address] [place] [address] Dr. Dylan Santana LYMPH # 2.1 103/ul Normal 1.2-3.8 [facility] Comment on above: Performed By: #### C BC #### [facility] [address] [place] [address] Dr. Dylan Santana Lymphocytes/100 WBC (Bld) 20.8 % Normal 20.5-60.0 [facility] Comment on above: Performed By: #### C BC #### [facility] [address] [place] [address] Dr. Dylan Santana MANUAL DIFF REQ NO Normal [facility] Comment on above: Performed By: #### C BC #### [facility] [address] [place] [address] Dr. Dylan Santana MCH (RBC) [Entitic mass] 30.1 pg Normal 26.7-34.0 [facility] Comment on above: Performed By: #### C BC #### [facility] [address] [place] [address] Dr. Dylan Santana MCHC (RBC) [Mass/Vol] 32.6 g/dL Normal 29.9-35.2 [facility] Comment on above: Performed By: #### C BC #### [facility] [address] [place] [address] Dr. Dylan Santana MCV (RBC) [Entitic vol] 92.4 fL Normal 81.0-99.0 [facility] Comment on above: Performed By: #### C BC #### [facility] [address] [place] [address] [address] Dylan Santana MONO # 0.4 103/ul Normal 0.3-0.8 [facility] Comment on above: Performed By: #### C BC #### [facility] [address] [place] [address] Dr. Dylan Santana Monocytes/100 WBC (Bld) 3.8 % Normal 1.7-12.0 [facility] Comment on above: Performed By: #### C BC #### [facility] [address] [place] [address] Dr. Dylan Santana NEUT # 7.6 103/ul Critically high 1.4-6.5 [facility] Comment on above: Performed By: #### C BC #### [facility] [address] [place] [address] Dr. Dylan Santana Neutrophils/100 WBC (Bld) 74.5 % Normal 43.0-75.0 [facility] Comment on above: Performed By: #### C BC #### [facility] [address] [place] [address] Dr. Dylan Santana Platelet mean volume (Bld) [Entitic vol] 10.4 fL Normal 9.5-13.5 [facility] Comment on above: Performed By: #### C BC #### [facility] [address] [place] [address] Dr. Dylan Santana PLT 228 103/ul Normal 150-450 [facility] Comment on above: Performed By: #### C BC #### [facility] [address] [place] [address] Dr. Dylan Santana RBC 4.62 106/ul Normal 4.20-5.40 [facility] Comment on above: Performed By: #### C BC #### [facility] [address] [place] [address] Dr. Dylan Santana WBC 10.2 103/ul Normal 4.0-11.0 [facility] Comment on above: Performed By: #### C BC #### [facility] [address] [place] [address] Dr. Dylan Santana GLYCOHEMOGLOBIN A1Con 2022 ADA RECOMMENDATION SEE BELOW Normal [facility] Comment on above: Result Comment: ADA RECOMMENDED LIMIT 4.0 - 6.0 ADA THERAPEUTIC TARGET < 7.0 ACTION SUGGESTED > 7.0 Performed By: #### A 1C #### [facility] [address] [address] [address] Dylan Santana Glucose [Mass/Vol] 214 mg/dL Normal [facility] Comment on above: Performed By: #### A 1C #### [facility] [address] [place] [address] [address] Dylan Santana HbA1c (Bld) [Mass fraction] 9.1 % Critically high 4.5-6.2 [facility] Comment on above: Performed By: #### A 1C #### [facility] [address] [place] [address] Dr. Dylan Santana LIPID PROFILEon 11-06-2022 CHOL-HDL RATIO NORM SEE BELOW Normal [facility] Comment on above: Result Comment: 3.3 - 4.4 LOW RISK 4.4 - 7.1 AVERAGE RISK 7.1 - 11.0 MODERATE RISK >11.0 HIGH RISK Performed By: #### L IPID #### [facility] [address] [place] [address] Dr. Dylan Santana Cholesterol [Mass/Vol] 142 mg/dL Normal <=200 [facility] Comment on above: Performed By: #### L IPID #### [facility] [address] [place] [address] Dr. Dylan Santana Cholesterol in HDL [Mass/Vol] 74 mg/dL Critically high 40-60 [facility] Comment on above: Performed By: #### L IPID #### [facility] [address] [place] [address] [address] Dylan Santana Cholesterol in LDL [Mass/Vol] 49.4 mg/dL Normal [facility] Comment on above: Performed By: #### L IPID #### [facility] [address] [place] [address] Dr. Dylan Santana Cholesterol.total/C holesterol in HDL [Mass ratio] 1.9 {ratio} Normal [facility] Comment on above: Performed By: #### L IPID #### [facility] [address] [address] [address] Dylan Santana HDL NORMAL > or = 60 mg/dl - LO W CARDIOVASCULAR RISK <40 mg/dl - HIGH CARDIOVASCULAR RISK Normal [facility] Comment on above: Performed By: #### L IPID #### [facility] [address] [address] [address] Dylan Santana LDL CALC NORMAL SEE BELOW Normal [facility] Comment on above: Result Comment: <100 mg/dl OPTIMAL 100 - 129 mg/dl NEAR OR ABOVE OPTIMAL 130 - 159 mg/dl BORDERLINE HIGH 160 - 189 mg/dl HIGH >190 mg/dl VERY HIGH Performed By: #### L IPID #### [facility] [address] [place] [address] [address] Dylan Santana Triglyceride [Mass/Vol] 93 mg/dL Normal <=150 [facility] Comment on above: Performed By: #### L IPID #### [facility] [address] [address] [address] Dylan Santana VLDL CALC 18.6 mg/dL Normal [facility] Comment on above: Performed By: #### L IPID #### [facility] [address] [place] [address] Dr. Dylan Santana PROF CHEM 8 (BAS METB)on Anion gap [Moles/Vol] 12.8 mmol/L Normal [facility] Comment on above: Performed By: #### C BC #### [facility] [address] [place] [address] Dr. Dylan Santana Calcium [Mass/Vol] 9.5 mg/dL Normal 8.5-10.1 [facility] Comment on above: Performed By: #### C BC #### [facility] [address] [address] [address] Dylan Santana Chloride [Moles/Vol] 105 mmol/L Normal 98-107 [facility] Comment on above: Performed By: #### C BC #### [facility] [address] [address] [address] Dylan Santana CO2 [Moles/Vol] 28.1 mmol/L Normal 21.0-32.0 [facility] Comment on above: Performed By: #### C BC #### [facility] [address] [address] [address] Dylan Santana Creatinine [Mass/Vol] 1.29 mg/dL Critically high 0.55-1.02 [facility] Comment on above: Performed By: #### C BC #### [facility] [address] [address] [address] Dylan Santana EGFR-AF BURKINAN 49 mL/min/1.73m2 Critically low >=60 [facility] Comment on above: Performed By: #### C BC #### [facility] [address] [address] [address] Dylan Santana EGFR-NON AF BURKINAN 41 mL/min/1.73m2 Critically low >=60 [facility] Comment on above: Performed By: #### C BC #### [facility] [address] [address] [address] Dylan Santana Glucose [Mass/Vol] 290 mg/dL Critically high 74-106 [facility] Comment on above: Performed By: #### C BC #### [facility] [address] [address] [address] Dylan Santana Potassium [Moles/Vol] 4.9 mmol/L Normal 3.5-5.1 [facility] Comment on above: Performed By: #### C BC #### [facility] [address] [address] [address] Dylan Santana Sodium [Moles/Vol] 141 mmol/L Normal 136-145 [facility] Comment on above: Performed By: #### C BC #### [facility] [address] [place] [address] [address] Dylan Santana Urea nitrogen [Mass/Vol] 30.0 mg/dL Critically high 7.0-18.0 [facility] Comment on above: Performed By: #### C BC #### [facility] [address] [address] [address] Dylan Santana Urea nitrogen/Creatinine [Mass ratio] 23.3 mg/mg Normal [facility] Comment on above: Performed By: #### C #### [facility] [address] [place] [address] Dr. Dylan Santana XR knee LT 2Von 11-05-2022 XR knee LT 2V [facility] Main [place] [id number] XRay Report Signed Patient: Libra Noonan MR#: [id number] : 1950 Acct:[id number] Age/Sex: 71 / F ADM Date: 11/05/22 Loc: [facility] Room: Type: [facility] Attending Dr: Zena García NP-C Copies to: DORA Miles Ordering Provider: DORA Miles Date of Service: 11/05/22 XR/XR knee LT 2V: Primary osteoarthritis of left knee LEFT KNEE - 2 views CLINICAL HISTORY: Left medial and lateral knee pain for years. COMPARISON: Left knee 11/16/2020 FINDINGS: No knee joint effusion. No acute bony process. Moderate degenerative changes with medial weightbearing joint space narrowing, spurring and chondrocalcinosis of the menisci. XR/XR knee LT 2V IMPRESSION: MODERATE DEGENERATIVE CHANGES OF THE LEFT KNEE WITHOUT ACUTE BONY PROCESS. Impression dictated by: Gavin Swenson Jr., D.OAsia11/05/2022 4:16 PM Dictation Location: [place] [address] Transcribed By: [facility] 11/05/22 1616 Dictated By: Gavin Swenson Jr, DO 11/05/22 1615 Signed By: 11/05/22 1616 Normal [facility] XR wrist LT 2Von 10-09-2022 XR wrist LT 2V [address] [address] XRay Report Signed Patient: Libra Noonan MR#: [id number] : 1950 Acct:[id number] Age/Sex: 71 / F ADM Date: 10/09/22 Loc: [facility] Room: Type: [facility] Attending Dr: Alka Hankins MD Copies to: Alka Hankins MD Ordering Provider: Alka Hankins MD Date of Service: 10/09/22 XR/XR wrist LT 2V: Left wrist pain LEFT WRIST - 2 views CLINICAL HISTORY: Left wrist pain for one year. No known injury. COMPARISON: None FINDINGS: No focal soft tissue abnormality. No acute bony process is seen. Mild degenerative changes with cystic changes involving the lunate and scaphoid bones. No bony erosions. XR/XR wrist LT 2V IMPRESSION: MILD DEGENERATIVE CHANGES INVOLVING THE LEFT WRIST WITHOUT ACUTE BONY PROCESS. Impression dictated by: Gavin Swenson Jr., D.O.10/09/2022 4:47 PM Dictation Location: [place] [address] Transcribed By: [facility] 10/09/221646 Dictated By: Gavin Swenson Jr, DO 10/09/221645 Signed By: 10/09/221646 [facility] XR SHOULDER LT 2V or >on XR SHOULDER LT 2V or > EXAM: Left shoulder HISTORY: Pain COMPARISON: 2 TECHNIQUE: 3 views FINDINGS: No fracture or dislocation of left shoulder is noted. Arthritic changes are noted involving the humeral head. There is a spur along the inferior aspect of the acromion. Mild arthritic changes of the left acromioclavicular joint are noted. Surrounding soft tissues are unremarkable. 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 Electronically authenticated by: ANN MARIE TINEO Date: 2022-07-26 16:54 Normal [facility] XR CHEST 2 Von 06-19-2022 XR CHEST 2 V EXAM: XR CHEST 2 V HISTORY: Acute respiratory syncytial virus bronchitis for the past week COMPARISON: 06/10/2022 TECHNIQUE: Upright PA and lateral chest x-ray FINDINGS: The heart is not enlarged and the vasculature is not distended. No acute infiltrate, effusion or pneumothorax is identified. Some degenerative changes are seen in the spine. IMPRESSION: No acute infiltrate or evidence of cardiac decompensation. The overall appearance of the chest is unchanged. Electronically authenticated by: WEI REED Date: 2022-06-19 18:36 Normal [facility] BNPon 06-10-2022 Natriuretic peptide B (Bld) [Mass/Vol] 683.0 pg/mL Normal <=900.0 [facility] Comment on above: Performed By: #### L IPID, TSH, CMP #### [facility] [address] [place] [address] Dr. Dylan Santana CBC AUTO DIFFon 06-10-2022 BASO # 0.0 103/ul Normal 0.0-0.1 [facility] Comment on above: Performed By: #### C BC #### [facility] [address] [place] [address] Dr. Dylan Santana Basophils/100 WBC (Bld) 0.6 % Normal 0.2-2.0 [facility] Comment on above: Performed By: #### C BC #### [facility] [address] [place] [address] Dr. Dylan Santana EO # 0.3 103/ul Normal 0.0-0.7 [facility] Comment on above: Performed By: #### C BC #### [facility] [address] [place] [address] Dr. Dylan Santana Eosinophils/100 WBC (Bld) 4.9 % Normal 0.9-7.0 [facility] Comment on above: Performed By: #### C BC #### [facility] [address] [place] [address] Dr. Dylan Santana Erythrocyte distribution width (RBC) [Ratio] 12.2 % Normal 11.0-15.0 [facility] Comment on above: Performed By: #### C BC #### [facility] [address] [place] [address] Dr. Dylan Santana Hematocrit (Bld) [Volume fraction] 36.2 % Normal 36.0-48.0 [facility] Comment on above: Performed By: #### C BC #### [facility] [address] [place] [address] Dr. Dylan Santana Hemoglobin (Bld) [Mass/Vol] 11.9 g/dL Critically low 12.0-16.0 [facility] Comment on above: Performed By: #### C BC #### [facility] [address] [place] [address] Dr. Dylan Santana IG # 0.02 10e3/ul Normal 0.00-0.03 [facility] Comment on above: Performed By: #### C BC #### [facility] [address] [place] [address] Dr. Dylan Santana IG % 0.4 % Normal 0.0-0.5 [facility] Comment on above: Performed By: #### C BC #### [facility] [address] [place] [address] Dr. Dylan Santana LYMPH # 1.8 103/ul Normal 1.2-3.8 [facility] Comment on above: Performed By: #### C BC #### [facility] [address] [place] [address] Dr. Dylan Santana Lymphocytes/100 WBC (Bld) 34.8 % Normal 20.5-60.0 [facility] Comment on above: Performed By: #### C BC #### [facility] [address] [place] [address] Dr. Dylan Santana MANUAL DIFF REQ NO Normal [facility] Comment on above: Performed By: #### C BC #### [facility] [address] [place] [address] Dr. Dylan Santana MCH (RBC) [Entitic mass] 30.2 pg Normal 26.7-34.0 [facility] Comment on above: Performed By: #### C BC #### [facility] [address] [place] [address] Dr. Dylan Santana MCHC (RBC) [Mass/Vol] 32.9 g/dL Normal 29.9-35.2 [facility] Comment on above: Performed By: #### C BC #### [facility] [address] [place] [address] Dr. Dylan Santana MCV (RBC) [Entitic vol] 91.9 fL Normal 81.0-99.0 [facility] Comment on above: Performed By: #### C BC #### [facility] [address] [address] [address] Dylan Santana MONO # 0.6 103/ul Normal 0.3-0.8 [facility] Comment on above: Performed By: #### C BC #### [facility] [address] [address] [address] Dylan Santana Monocytes/100 WBC (Bld) 12.5 % Critically high 1.7-12.0 [facility] Comment on above: Performed By: #### C BC #### [facility] [address] [place] [address] Dr. Dylan Santana NEUT # 2.4 103/ul Normal 1.4-6.5 [facility] Comment on above: Performed By: #### C BC #### [facility] [address] [place] [address] Dr. Dylan Santana Neutrophils/100 WBC (Bld) 46.8 % Normal 43.0-75.0 [facility] Comment on above: Performed By: #### C BC #### [facility] [address] [place] [address] Dr. Dylan Santana Platelet mean volume (Bld) [Entitic vol] 10.1 fL Normal 9.5-13.5 [facility] Comment on above: Performed By: #### C BC #### [facility] [address] [place] [address] Dr. Dylan Santana PLT 159 103/ul Normal 150-450 [facility] Comment on above: Performed By: #### C BC #### [facility] [address] [place] [address] Dr. Dylan Santana RBC 3.94 106/ul Critically low 4.20-5.40 [facility] Comment on above: Performed By: #### C BC #### [facility] [address] [place] [address] Dr. Dylan Santana WBC 5.1 103/ul Normal 4.0-11.0 [facility] Comment on above: Performed By: #### C BC #### [facility] [address] [place] [address] Dr. Dylan Santana BASO # 0.0 103/ul Normal 0.0-0.1 [facility] Comment on above: Performed By: #### C BC #### [facility] [address] [place] [address] Dr. Dylan Santana Basophils/100 WBC (Bld) 0.6 % Normal 0.2-2.0 [facility] Comment on above: Performed By: #### C BC #### [facility] [address] [place] [address] Dr. Dylan Santana EO # 0.3 103/ul Normal 0.0-0.7 [facility] Comment on above: Performed By: #### C BC #### [facility] [address] [place] [address] Dr. Dylan Santana Eosinophils/100 WBC (Bld) 5.0 % Normal 0.9-7.0 [facility] Comment on above: Performed By: #### C BC #### [facility] [place] [facility] [address] [place] [address] Dr. Dylan Santana Erythrocyte distribution width (RBC) [Ratio] 12.1 % Normal 11.0-15.0 [facility] Comment on above: Performed By: #### C BC #### [facility] [place] [facility] [address] [place] [address] Dr. Dylan Santana Hematocrit (Bld) [Volume fraction] 39.3 % Normal 36.0-48.0 [facility] Comment on above: Performed By: #### C BC #### [facility] [place] [facility] [address] [place] [address] Dr. Dylan Santana Hemoglobin (Bld) [Mass/Vol] 12.9 g/dL Normal 12.0-16.0 [facility] Comment on above: Performed By: #### C BC #### [facility] [place] [facility] [address] [place] [address] Dr. Dylan Santana IG # 0.02 10e3/ul Normal 0.00-0.03 [facility] Comment on above: Performed By: #### C BC #### [facility] [place] [facility] [address] [place] [address] Dr. Dylan Santana IG % 0.4 % Normal 0.0-0.5 [facility] Comment on above: Performed By: #### C BC #### [facility] [place] [facility] [address] [place] [address] Dr. Dylan Santana LYMPH # 1.4 103/ul Normal 1.2-3.8 [facility] Comment on above: Performed By: #### C BC #### [facility] [place] [facility] [address] [place] [address] Dr. Dylan Santana Lymphocytes/100 WBC (Bld) 26.9 % Normal 20.5-60.0 [facility] Comment on above: Performed By: #### C BC #### [facility] [place] [facility] [address] [place] [address] Dr. Dylan Santana MANUAL DIFF REQ NO Normal [facility] Comment on above: Performed By: #### C BC #### [facility] [place] [facility] [address] [place] [address] Dr. Dylan Santana MCH (RBC) [Entitic mass] 30.2 pg Normal 26.7-34.0 [facility] Comment on above: Performed By: #### C BC #### [facility] [place] [facility] [address] [place] [address] Dr. Dylan Santana MCHC (RBC) [Mass/Vol] 32.8 g/dL Normal 29.9-35.2 [facility] Comment on above: Performed By: #### C BC #### [facility] [place] [facility] [address] [place] [address] Dr. Dylan Santana MCV (RBC) [Entitic vol] 92.0 fL Normal 81.0-99.0 [facility] Comment on above: Performed By: #### C BC #### [facility] [place] [facility] [address] [place] [address] Dr. Dylan Santana MONO # 0.5 103/ul Normal 0.3-0.8 [facility] Comment on above: Performed By: #### C BC #### [facility] [place] [facility] [address] [place] [address] Dr. Dylan Santana Monocytes/100 WBC (Bld) 10.1 % Normal 1.7-12.0 [facility] Comment on above: Performed By: #### C BC #### [facility] [place] [facility] [address] [place] [address] Dr. Dylan Santana NEUT # 3.0 103/ul Normal 1.4-6.5 [facility] Comment on above: Performed By: #### C BC #### [facility] [place] [facility] [address] [place] [address] Dr. Dylan Santana Neutrophils/100 WBC (Bld) 57.0 % Normal 43.0-75.0 [facility] Comment on above: Performed By: #### C BC #### [facility] [place] [facility] [address] [place] [address] Dr. Dylan Santana Platelet mean volume (Bld) [Entitic vol] 10.3 fL Normal 9.5-13.5 [facility] Comment on above: Performed By: #### C BC #### [facility] [place] [facility] [address] [place] [address] Dr. Dylan Santana PLT 182 103/ul Normal 150-450 [facility] Comment on above: Performed By: #### C BC #### [facility] [place] [facility] [address] [place] [address] Dr. Dylan Santana RBC 4.27 106/ul Normal 4.20-5.40 [facility] Comment on above: Performed By: #### C BC #### [facility] [place] [facility] [address] [place] [address] Dr. Dylan Santana WBC 5.2 103/ul Normal 4.0-11.0 [facility] Comment on above: Performed By: #### C BC #### [facility] [place] [facility] [address] [place] [address] HEAD WO CONon 06-10-2022 CT HEAD WO CON EXAMINATION: CT HEAD WO CON HISTORY: HEADACHE COMPARISON: None. TECHNIQUE: CT examination of the head without IV contrast. Multiplanar reformats generated. Dose reduction techniques were achieved by using automated exposure control and/or adjustment of mA and/or kV according to patient size and/or use of iterative reconstruction technique. FINDINGS: Acute Findings: No evidence of acute intracranial hemorrhage, large acute territorial infarct, or suggestion of mass effect. No midline shift. MRI is more sensitive for detecting acute processes such as infarct, and may be considered if clinically warranted. Chronic Changes: Mild generalized brain atrophy. Mild scattered foci of white matter hypoattenuation, most likely related to chronic microvascular ischemia. Ventricles and sulci: Prominence of the ventricles and CSF spaces, likely related to brain volume loss. Other: The skull appears grossly intact, without visualized fracture. Mucosal thickening throughout bilateral ethmoid air cells, sphenoid sinuses, right more than left maxillary sinus, with superimposed fluid level on the right. Mastoid air cells are clear. Visualized portions of the orbits and extracranial soft tissues show no gross abnormality. IMPRESSION: 1. No CT evidence of an acute intracranial abnormality. 2. Mild atrophy and chronic microvascular ischemic changes. 3. Multi paranasal sinus mucosal thickening, with fluid level in the right maxillary sinus suggesting acute sinusitis. Electronically authenticated by: YONIS PACHECO Date: 2022-06-10 04:35 Normal [facility] [place] [facility] SARS-CoV-2 (COVID-19) RNA LUIS+probe Ql (Unsp spec) Not detected Normal NOT DETECTED [facility] [place] Comment on above: Result Comment: When diagnostic testing is negative, the possibility of a false negative should be considered in the context of a patient's recent exposures and the presence of clinical signs and symptoms consistent with SARS-CoV-2. This test is not yet approved or cleared by the [place] FDA. When there are no FDA-approved or cleared tests available, and other criteria are met, FDA can make tests available under an emergency access mechanism called an Emergency Use Authorization (EUA). The EUA for this test is supported by the [place] [employer] and Human Service's declaration that circumstances exist to justify the emergency use of in vitro diagnostics for the detection and/or diagnosis of the virus that causes COVID-19. This EUA will remain in effect for the duration of the COVID-19 declaration justifying emergency of IVDs, unless it is terminated or revoked by the FDA (after which the test may no longer be used). Performed By: #### L IPID, TSH, CMP #### [facility] [place] [facility] [address] [place] [address] Dr. Dylan Santana POINT OF CARE GLUCOSEon 05-24 Glucose [Mass/Vol] 169 mg/dL Critically high 74-106 T [facility] Comment on above: Performed By: #### C BC #### [facility] [place] [facility] [address] [address] [address] Dylan Santana PROF 14(COMP METB)on 06-10- 022 Albumin [Mass/Vol] 3.5 g/dL Normal 3.4-5.0 [facility] Comment on above: Performed By: #### C MP, HSTROPN #### [facility] [place] [facility] [address] [address] [address] Dylan Santana Albumin/Globulin [Mass ratio] 0.9 {ratio} Normal [facility] Comment on above: Performed By: #### C MP, HSTROPN #### [facility] [place] [facility] [address] [place] [address] Dr. Dylan Santana ALP [Catalytic activity/Vol] 197 U/L Critically high 46-116 [facility] Comment on above: Performed By: #### C MP, HSTROPN #### [facility] [place] [facility] [address] [address] [address] Dylan Santana ALT [Catalytic activity/Vol] 89 U/L Critically high 14-59 [facility] Comment on above: Performed By: #### C MP, HSTROPN #### [facility] [place] [facility] [address] [address] [address] Dylan Santana Anion gap [Moles/Vol] 10.1 mmol/L Normal [facility] Comment on above: Performed By: #### C MP, HSTROPN #### [facility] [place] [facility] [address] [address] [address] Dylan Santana AST [Catalytic activity/Vol] 50 U/L Critically high 15-37 [facility] Comment on above: Performed By: #### C MP, HSTROPN #### [facility] [place] [facility] [address] [address] [address] Dylan Santana Bilirubin [Mass/Vol] 0.4 mg/dL Normal 0.2-1.0 [facility] Comment on above: Performed By: #### C MP, HSTROPN #### [facility] [place] [facility] [address] [address] [address] Dylan Santana Calcium [Mass/Vol] 9.2 mg/dL Normal 8.5-10.1 [facility] Comment on above: Performed By: #### C MP, HSTROPN #### [facility] [place] [facility] [address] [address] [address] Dylan Santana Chloride [Moles/Vol] 101 mmol/L Normal 98-107 [facility] Comment on above: Performed By: #### C MP, HSTROPN #### [facility] [place] [facility] [address] [address] [address] Dylan Santana CO2 [Moles/Vol] 28.1 mmol/L Normal 21.0-32.0 [facility] Comment on above: Performed By: #### C MP, HSTROPN #### [facility] [place] [facility] [address] [place] [address] Dr. Dylan Santana Creatinine [Mass/Vol] 1.29 mg/dL Critically high 0.55-1.02 [facility] Comment on above: Performed By: #### C MP, HSTROPN #### [facility] [place] [facility] [address] [place] [address] Dr. Dylan Santana EGFR-AF BURKINAN 49 mL/min/1.73m2 Critically low >=60 [facility] Comment on above: Performed By: #### C MP, HSTROPN #### [facility] [place] [facility] [address] [address] [address] Dylan Santana EGFR-NON AF BURKINAN 41 mL/min/1.73m2 Critically low >=60 [facility] Comment on above: Performed By: #### C MP, HSTROPN #### [facility] [place] [facility] [address] [place] [address] Dr. Dylan Santana Globulin (S) [Mass/Vol] 3.9 g/dL Normal [facility] Comment on above: Performed By: #### C MP, HSTROPN #### [facility] [place] [facility] [address] [place] [address] Dr. Dylan Santana Glucose [Mass/Vol] 231 mg/dL Critically high 74-106 T [facility] Comment on above: Performed By: #### C MP, HSTROPN #### [facility] [place] [facility] [address] [place] [address] Dr. Dylan Santana Potassium [Moles/Vol] 4.2 mmol/L Normal 3.5-5.1 [facility] Comment on above: Performed By: #### C MP, HSTROPN #### [facility] [place] [facility] [address] [place] [address] Dr. Dylan Santana Protein [Mass/Vol] 7.4 g/dL Normal 6.4-8.2 [facility] Comment on above: Performed By: #### C MP, HSTROPN #### [facility] [place] [facility] [address] [place] [address] Dr. Dylan Santana Sodium [Moles/Vol] 135 mmol/L Critically low 136-145 Th [facility] Comment on above: Performed By: #### C MP, HSTROPN #### [facility] [place] [facility] [address] [place] [address] Dr. Dylan Santana Urea nitrogen [Mass/Vol] 21.0 mg/dL Critically high 7.0-18.0 [facility] Comment on above: Performed By: #### C MP, HSTROPN #### [facility] [place] [facility] [address] [place] [address] Dr. Dylan Santana Urea nitrogen/Creatinine [Mass ratio] 16.3 mg/mg Normal [facility] Comment on above: Performed By: #### C MP, HSTROPN #### [facility] [place] [facility] [address] [place] [address] Dr. Dylan Santana PROF CHEM 8 (BAS METB)on Anion gap [Moles/Vol] 9.2 mmol/L Normal [facility] Comment on above: Performed By: #### L IPID, TSH, CMP #### [facility] [place] [facility] [address] [place] [address] Dr. Dylan Santana Calcium [Mass/Vol] 8.9 mg/dL Normal 8.5-10.1 [facility] Comment on above: Performed By: #### L IPID, TSH, CMP #### [facility] [place] [facility] [address] [place] [address] Dr. Dylan Santana Chloride [Moles/Vol] 104 mmol/L Normal 98-107 [facility] Comment on above: Performed By: #### L IPID, TSH, CMP #### [facility] [place] [facility] [address] [place] [address] Dr. Dylan Santana CO2 [Moles/Vol] 27.8 mmol/L Normal 21.0-32.0 [facility] Comment on above: Performed By: #### L IPID, TSH, CMP #### [facility] [place] [facility] [address] [place] [address] Dr. Dylan Santana Creatinine [Mass/Vol] 1.14 mg/dL Critically high 0.55-1.02 [facility] Comment on above: Performed By: #### L IPID, TSH, CMP #### [facility] [address] [place] [address] Dr. Dylan Santana EGFR-AF BURKINAN 57 mL/min/1.73m2 Critically low >=60 [facility] Comment on above: Performed By: #### L IPID, TSH, CMP #### [facility] [place] [facility] [address] [place] [address] Dr. Dylan Santana EGFR-NON AF BURKINAN 47 mL/min/1.73m2 Critically low >=60 [facility] Comment on above: Performed By: #### L IPID, TSH, CMP #### [facility] [place] [facility] [address] [place] [address] Dr. Dylan Santana Glucose [Mass/Vol] 176 mg/dL Critically high 74-106 [facility] Comment on above: Performed By: #### L IPID, TSH, CMP #### [facility] [place] [facility] [address] [place] [address] Dr. Dylan Santana Potassium [Moles/Vol] 4.0 mmol/L Normal 3.5-5.1 [facility] Comment on above: Performed By: #### L IPID, TSH, CMP #### [facility] [place] [facility] [address] [place] [address] Dr. Dylan Santana Sodium [Moles/Vol] 137 mmol/L Normal 136-145 [facility] Comment on above: Performed By: #### L IPID, TSH, CMP #### [facility] [place] [facility] [address] [place] [address] Dr. Dylan Santana Urea nitrogen [Mass/Vol] 21.0 mg/dL Critically high 7.0-18.0 [facility] Comment on above: Performed By: #### L IPID, TSH, CMP #### [facility] [place] [facility] [address] [place] [address] Dr. Dylan Santana Urea nitrogen/Creatinine [Mass ratio] 18.4 mg/mg Normal [facility] Comment on above: Performed By: #### L IPID, TSH, CMP #### [facility] [place] [facility] [address] [place] [address] Dr. Dylan Santana RESPIRATORY PANEL PLUSon Adenovirus Not detected Normal NOT DETECTED [facility] Comment on above: Performed By: #### C BC #### [facility] [place] [facility] [address] [place] [address] Dr. Dylan Pastor. Parapertusis Not detected Normal NOT DETECTED [facility] Comment on above: Performed By: #### C BC #### [facility] [place] [facility] [address] [place] [address] Dr. Dylan Mccurdy Pertussis Not detected Normal NOT DETECTED [facility] Comment on above: Performed By: #### C BC #### [facility] [place] [facility] [address] [place] [address] Dr. Dylan Santana Chlamydia Pneumoniae Not detected Normal NOT DETECTED [facility] Comment on above: Performed By: #### C BC #### [facility] [place] [facility] [address] [place] [address] Dr. Dylan Santana Coronavirus 229E Not detected Normal NOT DETECTED [facility] Comment on above: Performed By: #### C BC #### [facility] [place] [facility] [address] [place] [address] Dr. Dylan Santana Coronavirus HKU1 Not detected Normal NOT DETECTED [facility] Comment on above: Performed By: #### C BC #### [facility] [place] [facility] [address] [address] [address] Dylan Santana Coronavirus NL63 Not detected Normal NOT DETECTED [facility] Comment on above: Performed By: #### C BC #### [facility] [place] [facility] [address] [address] [address] Dylan Santana Coronavirus OC43 Not detected Normal NOT DETECTED [facility] Comment on above: Performed By: #### C BC #### [facility] [place] [facility] [address] [address] [address] Dylan Santana Influenza A H1 2009 Not detected Normal NOT DETECTED [facility] Comment on above: Performed By: #### C BC #### [facility] [place] [facility] [address] [address] [address] Dylan Santana Influenza A H3 Not detected Normal NOT DETECTED [facility] Comment on above: Performed By: #### C BC #### [facility] [place] [facility] [address] [address] [address] Dylan Satnana Influenza B Not detected Normal NOT DETECTED [facility] Comment on above: Performed By: #### C BC #### [facility] [place] [facility] [address] [place] [address] Dr. Dylan Santana Metapneumovirus Not detected Normal NOT DETECTED [facility] Comment on above: Performed By: #### C BC #### [facility] [place] [facility] [address] [place] [address] Dr. Dylan Santana Mycoplas. Pneumoniae Not detected Normal NOT DETECTED [facility] [place] Comment on above: Performed By: #### C BC #### [facility] [place] [facility] [address] [address] [address] Dylan Santana Parainfluenza 1 Not detected Normal NOT DETECTED [facility] Comment on above: Performed By: #### C BC #### [facility] [place] [facility] [address] [address] [address] Dylan Santana Parainfluenza 2 Not detected Normal NOT DETECTED [facility] Comment on above: Performed By: #### C BC #### [facility] [place] [facility] [address] [place] [address] Dr. Dylan Santana Parainfluenza 3 Not detected Normal NOT DETECTED [facility] Comment on above: Performed By: #### C BC #### [facility] [place] [facility] [address] [place] [address] Dr. Dylan Santana Parainfluenza 4 Not detected Normal NOT DETECTED [facility] Comment on above: Performed By: #### C BC #### [facility] [place] [facility] [address] [place] [address] Dr. Dylan Santana Rhino/Enterovirus Not detected Normal NOT DETECTED [facility] [place] Comment on above: Performed By: #### C BC #### [facility] [place] [facility] [address] [place] [address] Dr. Dylan Santana RP2 Header 1 RESPIRATORY PANEL: VIRUSES Normal [facility] [place] Comment on above: Performed By: #### C BC #### [facility] [place] [facility] [address] [place] [address] Dr. Dylan Santana RP2 Header 2 RESPIRATORY PANEL: BACTERIA Normal [facility] [place] Comment on above: Performed By: #### C BC #### [facility] [place] [facility] [address] [place] [address] Dr. Dylan Santana RSV Detected Critically abnormal NOT DETECTED [facility] [place] Comment on above: Performed By: #### C BC #### [facility] [place] [facility] [address] [place] [address] Dr. Dylan Santana SARS-CoV-2 (COVID-19) RNA LUIS+probe Ql (Unsp spec) Not detected Normal NOT DETECTED [facility] [place] Comment on above: Performed By: #### C BC #### [facility] [place] [facility] [address] [place] [address] Dr. Dylan Santana TROPONIN, HIGH SENSITIVITYon 06-10-2022 HSTROP 18.5 pg/mL Normal 4.0-51.3 [facility] [place] Comment on above: Result Comment: CUT- OFF POINTS HAVE BEEN ESTABLISHED BASED ON THE FOURTH UNIVERSAL DEFINITIONS OF MYOCARDIAL INFARCTION. THE UPPER REFERENCE LIMIT (URL) OF TROPONIN, DEFINED THE 99TH PERCENTILE OF cTnI DISTRIBUTION IN A REFERENCE POPULATION, HAS BEEN CONFIRMED THE DECISION THRESHOLD FOR [place] DIAGNOSIS. Performed By: #### L IPID, TSH, CMP #### [facility] [place] [facility] [address] [place], [place] [address] Dr. Dylan Santana HSTROP 18.8 pg/mL Normal 4.0-51.3 [facility] [place] Comment on above: Result Comment: CUT- OFF POINTS HAVE BEEN ESTABLISHED BASED ON THE FOURTH UNIVERSAL DEFINITIONS OF MYOCARDIAL INFARCTION. THE UPPER REFERENCE LIMIT (URL) OF TROPONIN, DEFINED THE 99TH PERCENTILE OF cTnI DISTRIBUTION IN A REFERENCE POPULATION, HAS BEEN CONFIRMED THE DECISION THRESHOLD FOR [place] DIAGNOSIS. Performed By: #### C MP, HSTROPN #### [facility] [place] [facility] [address] [place], [place] [address] Dr. Dylan Santana XR CHEST 1 Von 06-10-2022 XR CHEST 1 V EXAM: XR CHEST 1 V HISTORY: SHORTNESS OF BREATH COMPARISON: 10/08/2021 TECHNIQUE: Chest single view. FINDINGS: Lines/tubes/devices: EKG leads overlie the chest. No indwelling lines are seen. Cardiomediastinum: Cardiac silhouette appears normal in size. Atherosclerotic calcifications of the aorta. Mediastinal silhouette otherwise unremarkable. Vasculature: No increased pulmonary vasculature. Lungs/pleura: Hazy opacity over the lung bases likely from overlying soft tissue attenuation. No definite consolidation, sizeable effusion, or visible pneumothorax. Bones/soft tissues: Bony thorax appears grossly intact as seen. Degenerative change of the spine and shoulders. Stable mild asymmetric elevation right hemidiaphragm. IMPRESSION: No acute cardiopulmonary findings. Electronically authenticated by: YONIS PACHECO Date: 2022-06-10 02:13 Normal [facility] [place] ECHOCARDIO M/2D COMPLETEon 1 07-08-2021 ECHOCARDIO M/2D COMPLETE Patient: LIBRA NOONAN Exam Date: 05/08/2022 : 1950 Gender:F Ordering : [facility] Admission #: [id number] Family : Order #: [id number] CLICK HERE TO VIEW EXAM ECHOCARDIOGRAM REPORT PROCEDURE: CARDIO PULMONARY ECHOCARDIO M/2D COMP INDICATIONS: Abnomal EKG COMPARISON: None. DESCRIPTION: COMPLETE ECHOCARDIOGRAM Real-time transthoracic echocardiography with 2D, M-mode, spectral and color flow Doppler performed. QUALITY: Technical quality was good. LEFT VENTRICLE: Normal chamber size. Mild concentric left ventricular hypertrophy. Global left ventricular systolic function is normal. LV EF: Visual estimation of left ventricular ejection fraction is 65-70% DIASTOLIC: Normal diastolic function. ATRIAL SEPTUM: LEFT ATRIUM: Normal chamber size. RIGHT ATRIUM: Normal chamber size. RIGHT VENTRICLE: Normal chamber size. Normal right ventricular systolic function. TRICUSPID VALVE: Normal mobility and thickness. No stenosis with trivial regurgitation. No evidence of pulmonary hypertension. RVSP is 32 mmHg MITRAL VALVE: Normal mobility and thickness. No mitral valve prolapse. No evidence of mitral valve stenosis. There is no mitral annular calcification. Trivial mitral regurgitation. AORTIC VALVE: Normal trileaflet appearance. Thickened aortic valve. Normal leaflet mobility. No evidence of aortic valve stenosis. No aortic regurgitation. AORTIC ROOT: Normal diameter and appearance. PULMONIC VALVE: Normal thickness and mobility. No stenosis. No regurgitation. PERICARDIUM: No evidence of pericardial effusion. IVC: Collapses with inspirations. Normal size. PLEURA: CONCLUSION: 1. Mild concentric left ventricular hypertrophy. Normal left ventricular systolic function. LVEF is 65 to 70%. 2. Normal diastolic function. 3. Normal right ventricular size and systolic function. 4. No significant valvular dysfunction. 5. Normal right-sided pressures. Adult Echocardiography Procedure Report Left Ventricle LVEDD (3.7 - 5.6 cm): 4.18 cm LVESD (2.2 - 4.0 cm): 2.77 cm LVIVS thickness (0.6 - 1.2 cm): 1.26 cm LVPW thickness (0.5 - 1.0 cm): 0.97 cm e': 0.10 m/s E - e': 9.40 LVOT Max Gradient: 2.66 mm[Hg] Peak Velocity (LVOT): 0.82 m/s LVOT Diameter 1.83 cm Left Ventricular Ejection Fraction: 65-70% Left Atrium LA Volume Index (2D A2C): 80.55 ml, 80.55 ml Left Atrium Systolic Dimension: 3.13 cm Mitral Valve MV E to A Ratio: 0.92 Mitral Valve A-Wave Peak Velocity: 1.04 m/s Mitral Valve E-Wave Peak Velocity: 0.96 m/s Right Ventricle RV Internal Diastolic Dimension: 2.91 cm Aorta AO Root Diam: 2.75 cm Ascending Ao Diam: 2.52 cm Aortic Valve AoV Area (Peak Torito): 1.92 cm2, 1.92 cm2 Peak Velocity(Antegrade Flow): 1.12 m/s Peak Gradient(Antegrade Flow): 4.99 mm[Hg] Tricuspid Valve Peak Velocity (Regurgitant Flow): 2.71 m/s, 2.69 m/s, 2.10 m/s Peak Velocity: 0.77 m/s Pulmonic Valve Peak Velocity: 1.10 m/s, 1.11 m/s Peak Gradient: 4.84 mm[Hg], 4.92 mm[Hg] Right Atrium Right Atrium Systolic Pressure: 25.39 ml, 25.39 ml Dictated by: Marko Capellan M.D. on 05/09/2022 at 20:08 Approved by: Marko Capellan M.D. on 05/09/2022 at 20:11 Normal [facility] NM STRESS/REST MULTIon 03-08 NM STRESS/REST MULTI Patient: LIBRA NOONAN Exam Date: 03/08/2022 : 1950 Gender:F Ordering : DR GIANA BELL M.D. Admission #: [id number] Family : Order #: [id number] CLICK HERE TO VIEW EXAM RADIOLOGY REPORT PROCEDURE: RADIONUCLIDE IMAGING STRESS/REST MULTI COMPARISON: None. INDICATIONS: Chest pain TECHNIQUE: Exam Description: Stress/Rest two day protocol gated SPECT Rest Imagin.4 mCi Tc-99m Cardiolite IV on 03/09/2022 Stress Imaging 26.0 mCi Tc-99m Cardiolite IV on 03/08/2022 Exercise Protocol: 0.4 mg Lexiscan given IV Heart Rate (bpm): Rest: 86 Max: 109 PMHR: 73 Blood Pressure: Rest: 132/80 Max: 180/80 Symptoms: Rest and peak stress ECG findings were normal and the exercise portion of the study was normal per attending physician Dr. Phu Lopez . For more details please see separate cardiac stress test report. FINDINGS: QUALITY OF STUDY: PERFUSION DEFECT: LOCATION: Basal anterior. Mid-anterior. Apical anterior. [place]. SIZE: Medium (3-4 segments). SEVERITY: Moderate. TYPE: Mixed. WALL MOTION: Normal. LV SIZE: Normal. 81 mL. TID / TCD: None; 1.0 LVEF: Normal. Calculated EF 74%. SUMMARY: Myocardial perfusion imaging study has ABNORMAL findings. CONCLUSION: 1. Moderate sized area of moderately decreased uptake in the anterior wall extending to the apex, LAD distribution which demonstrates partial redistribution, consider an area of partially reversible ischemia 2. Normal exercise test Dictated by: Ann Marie Julien MD on 03/09/2022 at 11:52 Approved by: Ann Marie Julien MD on 03/09/2022 at 11:54 Normal [facility] CBC AUTO DIFFon 01-24-2022 BASO # 0.0 103/ul Normal 0.0-0.1 [facility] Comment on above: Performed By: #### C BC #### [facility] [address] [place] [address] Dr. Dylan Santana Basophils/100 WBC (Bld) 0.5 % Normal 0.2-2.0 [facility] Comment on above: Performed By: #### C BC #### [facility] [address] [place] [address] Dr. Dylan Santana EO # 0.2 103/ul Normal 0.0-0.7 [facility] Comment on above: Performed By: #### C BC #### [facility] [address] [place] [address] Dr. Dylan Sanatna Eosinophils/100 WBC (Bld) 2.8 % Normal 0.9-7.0 [facility] Comment on above: Performed By: #### C BC #### [facility] [address] [place] [address] Dr. Dylan Santana Erythrocyte distribution width (RBC) [Ratio] 13.0 % Normal 11.0-15.0 [facility] Comment on above: Performed By: #### C BC #### [facility] [address] [place] [address] Dr. Dylan Santana Hematocrit (Bld) [Volume fraction] 40.8 % Normal 36.0-48.0 [facility] Comment on above: Performed By: #### C BC #### [facility] [address] [place] [address] Dr. Dylan Santana Hemoglobin (Bld) [Mass/Vol] 13.0 g/dL Normal 12.0-16.0 [facility] Comment on above: Performed By: #### C BC #### [facility] [address] [address] [address] Dylan Santana IG # 0.04 10e3/ul Critically high 0.00-0.03 [facility] Comment on above: Performed By: #### C BC #### [facility] [address] [address] [address] Dylan Santana IG % 0.5 % Normal 0.0-0.5 [facility] Comment on above: Performed By: #### C BC #### [facility] [address] [place] [address] Dr. Dylan aSntana LYMPH # 2.7 103/ul Normal 1.2-3.8 [facility] Comment on above: Performed By: #### C BC #### [facility] [address] [place] [address] Dr. Dylan Santana Lymphocytes/100 WBC (Bld) 34.3 % Normal 20.5-60.0 [facility] Comment on above: Performed By: #### C BC #### [facility] [address] [place] [address] Dr. Dylan Santana MANUAL DIFF REQ NO Normal [facility] Comment on above: Performed By: #### C BC #### [facility] [address] [place] [address] Dr. Dylan Santana MCH (RBC) [Entitic mass] 30.0 pg Normal 26.7-34.0 [facility] Comment on above: Performed By: #### C BC #### [facility] [address] [place] [address] Dr. yDlan Santana MCHC (RBC) [Mass/Vol] 31.9 g/dL Normal 29.9-35.2 [facility] Comment on above: Performed By: #### C BC #### [facility] [address] [place] [address] Dr. Dylan Santana MCV (RBC) [Entitic vol] 94.0 fL Normal 81.0-99.0 [facility] Comment on above: Performed By: #### C BC #### [facility] [address] [place] [address] Dr. Dylan Santana MONO # 0.4 103/ul Normal 0.3-0.8 [facility] Comment on above: Performed By: #### C BC #### [facility] [address] [place] [address] Dr. Dylan Santana Monocytes/100 WBC (Bld) 5.1 % Normal 1.7-12.0 [facility] Comment on above: Performed By: #### C BC #### [facility] [address] [place] [address] Dr. Dylan Santana NEUT # 4.4 103/ul Normal 1.4-6.5 [facility] Comment on above: Performed By: #### C BC #### [facility] [address] [place] [address] Dr. Dylan Santana Neutrophils/100 WBC (Bld) 56.8 % Normal 43.0-75.0 [facility] Comment on above: Performed By: #### C BC #### [facility] [address] [place] [address] Dr. Dylan Santana Platelet mean volume (Bld) [Entitic vol] 10.7 fL Normal 9.5-13.5 [facility] Comment on above: Performed By: #### C BC #### [facility] [address] [place] [address] Dr. Dylan Santana PLT 212 103/ul Normal 150-450 [facility] Comment on above: Performed By: #### C BC #### [facility] [address] [place] [address] Dr. Dylan Santana RBC 4.34 106/ul Normal 4.20-5.40 [facility] Comment on above: Performed By: #### C BC #### [facility] [address] [place] [address] Dr. Dylan Santana WBC 7.8 103/ul Normal 4.0-11.0 [facility] Comment on above: Performed By: #### C BC #### [facility] [address] [place] [address] Dr. Dylan Santana FREE T4on 01-24-2022 Free T4 [Mass/Vol] 1.02 ng/dL Normal 0.76-1.46 [facility] Comment on above: Performed By: #### F T4 #### [facility] [address] [address] [address] Dylan Santana GLYCOHEMOGLOBIN A1Con 2021 ADA RECOMMENDATION SEE BELOW Normal [facility] Comment on above: Result Comment: ADA RECOMMENDED LIMIT 4.0 - 6.0 ADA THERAPEUTIC TARGET < 7.0 ACTION SUGGESTED > 7.0 Performed By: #### C BC #### [facility] [address] [address] [address] Dylan Santana Glucose [Mass/Vol] 189 mg/dL Normal [facility] Comment on above: Performed By: #### C BC #### [facility] [address] [place] [address] Dr. Dylan Santana HbA1c (Bld) [Mass fraction] 8.2 % Critically high 4.5-6.2 [facility] Comment on above: Performed By: #### C BC #### [facility] [address] [address] [address] Dylan Santana LIPID PROFILEon 01-24-2022 CHOL-HDL RATIO NORM SEE BELOW Normal [facility] Comment on above: Result Comment: 3.3 - 4.4 LOW RISK 4.4 - 7.1 AVERAGE RISK 7.1 - 11.0 MODERATE RISK >11.0 HIGH RISK Performed By: #### L IPID, TSH, CMP #### [facility] [address] [address] [address] Dylan Santana Cholesterol [Mass/Vol] 235 mg/dL Critically high <=200 [facility] Comment on above: Performed By: #### L IPID, TSH, CMP #### [facility] [address] [place] [address] Dr. Dylan Santana Cholesterol in HDL [Mass/Vol] 64 mg/dL Critically high 40-60 [facility] Comment on above: Performed By: #### L IPID, TSH, CMP #### [facility] [address] [address] [address] Dylan Santana Cholesterol in LDL [Mass/Vol] 139.8 mg/dL Normal [facility] Comment on above: Performed By: #### L IPID, TSH, CMP #### [facility] [address] [address] [address] Dylan Santana Cholesterol.total/C holesterol in HDL [Mass ratio] 3.7 {ratio} Normal [facility] Comment on above: Performed By: #### L IPID, TSH, CMP #### [facility] [address] [address] [address] Dylan Santana HDL NORMAL > or = 60 mg/dl - LO W CARDIOVASCULAR RISK <40 mg/dl - HIGH CARDIOVASCULAR RISK Normal [facility] Comment on above: Performed By: #### L IPID, TSH, CMP #### [facility] [address] [address] [address] Dylan Santana LDL CALC NORMAL SEE BELOW Normal [facility] Comment on above: Result Comment: <100 mg/dl OPTIMAL 100 - 129 mg/dl NEAR OR ABOVE OPTIMAL 130 - 159 mg/dl BORDERLINE HIGH 160 - 189 mg/dl HIGH >190 mg/dl VERY HIGH Performed By: #### L IPID, TSH, CMP #### [facility] [address] [place] [address] Dr. Dylan Santana Triglyceride [Mass/Vol] 156 mg/dL Critically high <=150 [facility] Comment on above: Performed By: #### L IPID, TSH, CMP #### [facility] [address] [address] [address] Dylan Santana VLDL CALC 31.2 mg/dL Normal [facility] Comment on above: Performed By: #### L IPID, TSH, CMP #### [facility] [address] [address] [address] Dylan Satnana PROF 14(COMP METB)on 022 Albumin [Mass/Vol] 3.3 g/dL Critically low 3.4-5.0 [facility] Comment on above: Performed By: #### L IPID, TSH, CMP #### [facility] [address] [place] [address] Dr. Dylan Santana Albumin/Globulin [Mass ratio] 0.9 {ratio} Normal [facility] Comment on above: Performed By: #### L IPID, TSH, CMP #### [facility] [address] [place] [address] Dr. Dylan Santana ALP [Catalytic activity/Vol] 109 U/L Normal 46-116 [facility] Comment on above: Performed By: #### L IPID, TSH, CMP #### [facility] [address] [place] [address] Dr. Dylan Santana ALT [Catalytic activity/Vol] 25 U/L Normal 14-59 [facility] Comment on above: Performed By: #### L IPID, TSH, CMP #### [facility] [address] [place] [address] Dr. Dylan Santana Anion gap [Moles/Vol] 14.7 mmol/L Normal [facility] Comment on above: Performed By: #### L IPID, TSH, CMP #### [facility] [address] [place] [address] Dr. Dylan Santana AST [Catalytic activity/Vol] 12 U/L Critically low 15-37 [facility] Comment on above: Performed By: #### L IPID, TSH, CMP #### [facility] [address] [place] [address] Dr. Dylan Santana Bilirubin [Mass/Vol] 0.6 mg/dL Normal 0.2-1.0 [facility] Comment on above: Performed By: #### L IPID, TSH, CMP #### [facility] [address] [place] [address] Dr. Dylan Santana Calcium [Mass/Vol] 8.8 mg/dL Normal 8.5-10.1 [facility] Comment on above: Performed By: #### L IPID, TSH, CMP #### [facility] [address] [place] [address] Dr. Dylan Santana Chloride [Moles/Vol] 102 mmol/L Normal 98-107 [facility] Comment on above: Performed By: #### L IPID, TSH, CMP #### [facility] [address] [address] [address] Dylan Santana CO2 [Moles/Vol] 27.5 mmol/L Normal 21.0-32.0 [facility] Comment on above: Performed By: #### L IPID, TSH, CMP #### [facility] [address] [address] [address] Dylan Santana Creatinine [Mass/Vol] 1.14 mg/dL Critically high 0.55-1.02 [facility] Comment on above: Performed By: #### L IPID, TSH, CMP #### [facility] [address] [address] [address] Dylan Santana EGFR-AF BURKINAN 57 mL/min/1.73m2 Critically low >=60 [facility] Comment on above: Performed By: #### L IPID, TSH, CMP #### [facility] [address] [address] [address] Dylan Santana EGFR-NON AF BURKINAN 47 mL/min/1.73m2 Critically low >=60 [facility] Comment on above: Performed By: #### L IPID, TSH, CMP #### [facility] [address] [address] [address] Dylan Santana Globulin (S) [Mass/Vol] 3.7 g/dL Normal [facility] Comment on above: Performed By: #### L IPID, TSH, CMP #### [facility] [address] [address] [address] Dylan Santana Glucose [Mass/Vol] 249 mg/dL Critically high 74-106 T [facility] Comment on above: Performed By: #### L IPID, TSH, CMP #### [facility] [address] [address] [address] Dylan Santana Potassium [Moles/Vol] 4.2 mmol/L Normal 3.5-5.1 [facility] Comment on above: Performed By: #### L IPID, TSH, CMP #### [facility] [address] [address] [address] Dylan Santana Protein [Mass/Vol] 7.0 g/dL Normal 6.4-8.2 [facility] Comment on above: Performed By: #### L IPID, TSH, CMP #### [facility] [address] [place] [address] Dr. Dylan Santana Sodium [Moles/Vol] 140 mmol/L Normal 136-145 [facility] Comment on above: Performed By: #### L IPID, TSH, CMP #### [facility] [address] [place] [address] Dr. Dylan Santana Urea nitrogen [Mass/Vol] 20.0 mg/dL Critically high 7.0-18.0 [facility] Comment on above: Performed By: #### L IPID, TSH, CMP #### [facility] [address] [place] [address] Dr. Dylan Santana Urea nitrogen/Creatinine [Mass ratio] 17.5 mg/mg Normal [facility] Comment on above: Performed By: #### L IPID, TSH, CMP #### [facility] [address] [place] [address] Dr. Dylan Santana TSHon 01-24-2022 TSH 3.673 uIU/mL Normal 0.358-3.740 [facility] Comment on above: Performed By: #### L IPID, TSH, CMP #### [facility] [address] [place] [address] Dr. Dylan Santana COVID Quick Testingon 2021 Result Negative [facility] 09-22-2021 Lab Reports [id number]. [id number] Normal [facility] Vital Signs Date Time Vital Sign Value Performing Clinician Facility 06-05-2023 11:30-0500 Body height 160.02 cm Giana Bell Other [facility] Other 06-05-2023 11:30-0500 Body mass index (BMI) [Ratio] 55.62 kg/m2 Giana Bell Other [facility] Other 06-05-2023 11:30-0500 Body weight 142.43 kg Giana Bell Other [facility] Other 06-05-2023 11:30-0500 Diastolic blood pressure 78 mm[Hg] Giana Bell Other [facility] Other 06-05-2023 11:30-0500 SaO2% (BldA) [Mass fraction] 98 % Giana Bell Other [facility] Other 06-05-2023 11:30-0500 Systolic blood pressure 132 mm[Hg] Giana Bell Other [facility] Other 05-28-2023 11:00-0500 Diastolic blood pressure 97 mm[Hg] MD Giana Bell Work Phone: [facility] 05-28-2023 11:00-0500 Heart rate 79 /min MD Giana Bell Work Phone: [facility] 05-28-2023 11:00-0500 Respiratory rate 16 /min MD Giana Bell Work Phone: [facility] 05-28-2023 11:00-0500 SaO2% (BldA) [Mass fraction] 98 % MD Giana Bell Work Phone: [facility] 05-28-2023 11:00-0500 Systolic blood pressure 173 mm[Hg] MD Giana Bell Work Phone: [facility] 05-28-2023 10:15-0500 Inhaled oxygen flow rate 3 L/min MD Giana Bell Work Phone: [facility] 05-28-2023 10:04-0500 Body height 157.48 cm MD Giana Bell Work Phone: [facility] 05-28-2023 10:04-0500 Body weight 141.52 kg MD Giana Bell Work Phone: [facility] 05-07-2023 10:15-0500 Diastolic blood pressure 87 mm[Hg] MD Giana Bell Work Phone: [facility] 05-07-2023 10:15-0500 Heart rate 74 /min MD Giana Bell Work Phone: [facility] 05-07-2023 10:15-0500 Respiratory rate 16 /min MD Giana Bell Work Phone: [facility] 05-07-2023 10:15-0500 SaO2% (BldA) [Mass fraction] 95 % MD Giana Bell Work Phone: [facility] 05-07-2023 10:15-0500 Systolic blood pressure 173 mm[Hg] MD Giana Bell Work Phone: [facility] 05-07-2023 09:30-0500 Inhaled oxygen flow rate 3 L/min MD Giana Bell Work Phone: [facility] 05-07-2023 08:40-0500 Body height 157.48 cm MD Giana Bell Work Phone: [facility] 05-07-2023 08:40-0500 Body weight 141.52 kg MD Giana Bell Work Phone: [facility] 03-06-2023 11:30-0400 Body height 160.02 cm Giana Bell Other [facility] Other 03-06-2023 11:30-0400 Body mass index (BMI) [Ratio] 55.26 kg/m2 Giana Bell Other [facility] Other 03-06-2023 11:30-0400 Body weight 141.52 kg Giana Bell Other [facility] Other 03-06-2023 11:30-0400 Diastolic blood pressure 72 mm[Hg] Giana Bell Other [facility] Other 03-06-2023 11:30-0400 Respiratory rate 12 /min Giana Bell Other [facility] Other 03-06-2023 11:30-0400 Systolic blood pressure 118 mm[Hg] Giana Bell Other [facility] Other 02-12-2023 11:10-0400 Diastolic blood pressure 80 mm[Hg] MD Giana Bell Work Phone: [facility] 02-12-2023 11:10-0400 Heart rate 80 /min MD Giana Bell Work Phone: [facility] 02-12-2023 11:10-0400 Respiratory rate 18 /min MD Giana Bell Work Phone: [facility] 02-12-2023 11:10-0400 SaO2% (BldA) [Mass fraction] 96 % MD Giana Bell Work Phone: [facility] 02-12-2023 11:10-0400 Systolic blood pressure 145 mm[Hg] MD Giana Bell Work Phone: [facility] 02-12-2023 10:28-0400 Inhaled oxygen flow rate 3 L/min MD Giana Bell Work Phone: [facility] 02-12-2023 09:59-0400 Body height 157.48 cm MD Giana Bell Work Phone: [facility] 02-12-2023 09:59-0400 Body weight 92.07 kg MD Giana Bell Work Phone: [facility] 12-05-2022 11:30-0400 Body height 160.02 cm Giana Bell Other [facility] Other 12-05-2022 11:30-0400 Body mass index (BMI) [Ratio] 55.09 kg/m2 Giana Bell Other [facility] Other 12-05-2022 11:30-0400 Body temperature 97.8 [degF] Giana Bell Other [facility] Other 12-05-2022 11:30-0400 Body weight 141.07 kg Giana Bell Other [facility] Other 12-05-2022 11:30-0400 Diastolic blood pressure 50 mm[Hg] Giana Bell Other [facility] Other 12-05-2022 11:30-0400 Systolic blood pressure 92 mm[Hg] Giana Bell Other [facility] Other 10-23-2022 09:42-0400 Diastolic blood pressure 80 mm[Hg] MD Giana Bell Work Phone: [facility] 10-23-2022 09:42-0400 Heart rate 75 /min MD Giana Bell Work Phone: [facility] 10-23-2022 09:42-0400 Respiratory rate 18 /min MD Giana Bell Work Phone: [facility] 10-23-2022 09:42-0400 SaO2% (BldA) [Mass fraction] 98 % MD Giana Bell Work Phone: [facility] 10-23-2022 09:42-0400 Systolic blood pressure 142 mm[Hg] MD Giana Bell Work Phone: [facility] 10-23-2022 09:03-0400 Inhaled oxygen flow rate 3 L/min MD Giana Bell Work Phone: [facility] 10-23-2022 08:15-0400 Body height 157.48 cm MD Giana Bell Work Phone: [facility] 10-23-2022 08:15-0400 Body weight 141.97 kg MD Giana Bell Work Phone: [facility] 10-09-2022 16:00-0400 Body height 160.02 cm Alka Hankins Other [facility] Other 10-09-2022 16:00-0400 Body mass index (BMI) [Ratio] 55.26 kg/m2 Alka Hankins Other [facility] Other 10-09-2022 16:00-0400 Body weight 141.52 kg Alka Hankins Other [facility] Other 09-04-2022 12:30-0400 Body height 160.02 cm Giana Bell Other [facility] Other 09-04-2022 12:30-0400 Body mass index (BMI) [Ratio] 55.26 kg/m2 Giana Bell Other [facility] Other 09-04-2022 12:30-0400 Body weight 141.52 kg Giana Bell Other [facility] Other 09-04-2022 12:30-0400 Diastolic blood pressure 82 mm[Hg] Giana Bell Other [facility] Other 09-04-2022 12:30-0400 Systolic blood pressure 128 mm[Hg] Giana Bell Other [facility] Other 08-07-2022 08:38-0500 Diastolic blood pressure 55 mm[Hg] MD Giana Bell Work Phone: [facility] 08-07-2022 08:38-0500 Heart rate 78 /min MD Giana Bell Work Phone: [facility] 08-07-2022 08:38-0500 Respiratory rate 16 /min MD Giana Bell Work Phone: [facility] 08-07-2022 08:38-0500 SaO2% (BldA) [Mass fraction] 95 % MD Giana Bell Work Phone: [facility] 08-07-2022 08:38-0500 Systolic blood pressure 130 mm[Hg] MD Giana Bell Work Phone: [facility] 08-07-2022 07:59-0500 Inhaled oxygen flow rate 3 L/min MD Giana Bell Work Phone: [facility] 08-07-2022 07:23-0500 Body height 157.48 cm MD Giana Bell Work Phone: [facility] [facility] 08-07-2022 07:23-0500 Body weight 141.97 kg MD Giana Bell Work Phone: [facility] 02-27-2022 14:15-0400 Body height 160.02 cm Zena García Other [facility] Other 02-27-2022 14:15-0400 Body mass index (BMI) [Ratio] 53.67 kg/m2 Zena García Other [facility] Other 02-27-2022 14:15-0400 Body weight 137.44 kg Zena García Other [facility] Other 02-06-2022 15:00-0400 Body height 160.02 cm Zena García Other [facility] Other 02-06-2022 15:00-0400 Body mass index (BMI) [Ratio] 53.67 kg/m2 Zena García Other [facility] Other 02-06-2022 15:00-0400 Body weight 137.44 kg Zena García Other [facility] Other 01-03-2022 10:35-0400 Body height 160.02 cm Jazz Nance Other [facility] Other 01-03-2022 10:35-0400 Body mass index (BMI) [Ratio] 53.67 kg/m2 Jazz Nance Other [facility] Other 01-03-2022 10:35-0400 Body temperature 98.5 [degF] Jazz Nance Other [facility] Other 01-03-2022 10:35-0400 Body weight 137.44 kg Jazz Nance Other [facility] Other 01-03-2022 10:35-0400 SaO2% (BldA) [Mass fraction] 95 % Jazz Nance Other [facility] Other 11-06-2021 15:45-0400 Body height 160.02 cm Zena García Other [facility] Other 03-22-2021 10:45-0400 Body height 160.02 cm Zena García Other [facility] Other 03-22-2021 10:45-0400 Body mass index (BMI) [Ratio] 50.3 kg/m2 Zena García Other [facility] Other 03-22-2021 10:45-0400 Body weight 128.82 kg Zena García Other [facility] Other Encounters Encounter Date Encounter Type Care Provider Facility Start: 09-13-2023 End: 09-13-2023 ambulatory DANIELA HENDRICKS [facility] Start: 07-15-2023 End: 07-15-2023 ambulatory Giana Bell Other [facility] Other Start: 07-15-2023 Telephone encounter Giana Bell [facility] Start: 06-07-2023 End: 06-07-2023 ambulatory Giana Bell Other [facility] Other Start: 06-07-2023 Telephone encounter Giana Bell [facility] Start: 06-05-2023 End: 06-05-2023 ambulatory Giana Bell Other [facility] Other Start: 06-05-2023 Office outpatient vi sit 25 minutes Giana Bell [facility] Start: 05-28-2023 (Procedure) Short Eric Villanueva [facility] Start: 05-28-2023 End: 05-28-2023 ambulatory Eric Villauneva Facility:[facility] Start: 05-28-2023 End: 05-28-2023 Admission to same day surgery center MD Giana Bell Work Phone: [facility] Work Phone: Start: 05-28-2023 End: 05-28-2023 ambulatory MD Giana Bell Work Phone: [facility] Work Phone: Start: 05-20-2023 End: 05-20-2023 ambulatory Eric Villanueva Other [facility] Other Start: 05-20-2023 Office outpatient vi sit 25 minutes Eric Villanueva [facility] [place] Start: 05-08-2023 End: 05-08-2023 ambulatory RIMA LOUIS [facility] Start: 05-07-2023 (Procedure) Boyd Villanueva [facility] Start: 05-07-2023 End: 05-07-2023 ambulatory Giana Bell [facility] Other Start: 05-07-2023 End: 05-07-2023 Admission to same day surgery center MD Giana Bell Work Phone: [facility] Work Phone: Start: 04-23-2023 End: 04-23-2023 ambulatory Eric Villanueva Facility:[facility] Start: 04-23-2023 End: 04-23-2023 Patient encounter procedure MD Giana Bell Work Phone: [facility] Start: 04-23-2023 End: 04-23-2023 ambulatory MD Giana Bell Work Phone: [facility] Work Phone: Start: 04-23-2023 Office outpatient vi sit 25 minutes Eric Villanueva [facility] Start: 03-06-2023 End: 03-06-2023 ambulatory Giana Bell Other [facility] Other Start: 03-06-2023 Office outpatient vi sit 15 minutes Giana Bell [facility] Start: 02-28-2023 End: 02-28-2023 ambulatory Eric Villanueva Other [facility] Other Start: 02-28-2023 Office outpatient vi sit 15 minutes Eric Gilesgiuliano [facility] Start: 02-12-2023 (Procedure) Boyd Villanueva [facility] Start: 02-12-2023 End: 02-12-2023 Admission to same day surgery center MD Giana Bell Work Phone: [facility] Work Phone: Start: 02-12-2023 End: 02-12-2023 ambulatory MD Giana Bell Work Phone: [facility] Work Phone: Start: 02-07-2023 End: 02-07-2023 ambulatory Eric Villanueva Other [facility] Other Start: 02-07-2023 Office outpatient vi sit 25 minutes Eric Gilesgiuliano [facility] Start: 01-01-2023 End: 01-01-2023 ambulatory Giana Bell Other [facility] Other Start: 01-01-2023 Telephone encounter Giana Bell [facility] Start: 12-31-2022 End: 12-31-2022 ambulatory Giana Bell Other [facility] Other Start: 12-31-2022 Telephone encounter Giana Bell [facility] Start: 12-05-2022 End: 12-05-2022 ambulatory Giana Bell Other [facility] Other Start: 12-05-2022 Office outpatient vi sit 25 minutes Giana Bell [facility] Start: 11-27-2022 End: 11-27-2022 ambulatory Giana Bell Other [facility] Other Start: 11-27-2022 Telephone encounter Giana Bell [facility] Start: 11-13-2022 End: 11-13-2022 ambulatory AB [facility] Start: 11-06-2022 End: 11-07-[address] GIANA BELL Facility: Start: 11-05-2022 End: 11-05-2022 ambulatory Zena García Facility:[facility] Start: 11-05-2022 End: 11-05-2022 ambulatory MD Giana Bell Work Phone: [facility] Work Phone: Start: 11-05-2022 End: 11-05-2022 Patient encounter procedure MD Giana Bell Work Phone: [facility] Start: 10-23-2022 (Procedure) Short Eric Villanueva [facility] Start: 10-23-2022 End: 10-23-2022 ambulatory Eric Villanueva [facility] Other Start: 10-23-2022 End: 10-23-2022 Admission to same day surgery center MD Giana Bell Work Phone: [facility] Work Phone: Start: 10-10-2022 End: 10-10-2022 ambulatory Eric Villanueva Other [facility] Other Start: 10-10-2022 Telephone encounter Eric [facility] Start: 10-09-2022 End: 10-09-2022 Patient encounter procedure MD Giana Bell Work Phone: [facility] Start: 10-09-2022 End: 10-09-2022 ambulatory Alka Ellis [facility] Other Start: 10-09-2022 Office outpatient ne w 45 minutes Alka Hankins [facility] Start: 09-04-2022 End: 09-04-2022 ambulatory Giana Bell Other [facility] Other Start: 09-04-2022 Office outpatient vi sit 15 minutes Giana Bell [facility] Start: 08-24-2022 End: 08-24-2022 ambulatory Eric Villanueva Other [facility] Other Start: 08-24-2022 Telephone encounter Eric [facility] Start: 08-22-2022 End: 08-23-2022 ambulatory ZENA POTTER Facility:[facility] Start: 08-22-2022 End: 08-22-2022 Patient encounter procedure ZENA POTTER [facility] Start: 08-14-2022 End: 08-14-2022 ambulatory Eric Villanueva Other [facility] Other Start: 08-14-2022 Office outpatient vi sit 25 minutes Eric Villanueva [facility] Start: 08-07-2022 End: 08-07-2022 ambulatory Eric Villanueva Facility:[facility] Start: 08-07-2022 End: 08-07-2022 Admission to same day surgery center MD Giana Bell Work Phone: [facility] Work Phone: Start: 08-07-2022 End: 08-07-2022 ambulatory MD Giana Bell Work Phone: [facility] Work Phone: Start: 07-27-2022 End: 07-27-2022 ambulatory Giana Bell Other [facility] Other Start: 07-27-2022 Telephone encounter Giana Bell [facility] Start: 07-26-2022 End: 07-27-[address] GIANA BELL Facility:[facility] Start: 07-17-2022 End: 07-17-2022 ambulatory Eric Villanueva Other [facility] Other Start: 07-17-2022 Telephone encounter Eric Villanueva [facility] Start: 06-19-2022 Adult health examination Eric Villanueva Other [facility] Other Start: 06-19-2022 End: 06-20-[address] GIANA BELL Facility:[facility] Start: 06-10-2022 End: 06-11-[address] GIANA BELL Facility:[facility] Start: 05-08-2022 End: 05-09-[address] GIANA BELL Facility:[facility] Start: 04-16-2022 End: 04-16-2022 ambulatory Eric Villanueva Other [facility] Other Start: 04-16-2022 Telephone encounter Eric Jaeger [facility] Start: 03-26-2022 End: 03-26-2022 ambulatory Eric Villanueva Other [facility] Other Start: 03-26-2022 Telephone encounter Eric Jaeger [facility] Start: 03-13-2022 End: 03-13-2022 ambulatory Eric Villanueva Other [facility] Other Start: 03-13-2022 Telephone encounter Eric Jaeger [facility] Start: 03-12-2022 End: 03-12-2022 ambulatory Eric Villanueva Other [facility] Other Start: 03-12-2022 Office outpatient ne w 45 minutes Eric BARR[facility] Start: 03-09-[address] GIANA BELL Facil ity:[facility] Start: 03-08-2022 End: 03-09-[address] GIANA BELL Facility:[facility] Start: 02-27-2022 End: 02-27-2022 ambulatory Zena García Other [facility] Other Start: 02-27-2022 Patient encounter procedure Zena García [facility] Start: 02-22-2022 End: 02-22-2022 ambulatory Eric Villanueva Other [facility] Other Start: 02-22-2022 Telephone encounter Eric Jaeger [facility] Start: 02-06-2022 End: 02-06-2022 ambulatory Zena García Other [facility] Other Start: 02-06-2022 Office outpatient vi sit 25 minutes Zena García [facility] Start: 01-24-2022 End: 08-04-[address] GIANA BELL Facility:[facility] Start: 01-03-2022 End: 01-03-2022 ambulatory Jazz Nance Other [facility] Other Start: 01-03-2022 Office outpatient vi sit [address] [facility] Start: 11-06-2021 End: 11-06-2021 ambulatory Zena García Other [facility] Other Start: 11-06-2021 Office outpatient vi sit [address] [facility] Start: 09-06-2021 ambulatory ZENA ABBEY Facility :[facility] Start: 08-08-2021 End: 08-08-2021 ambulatory Zena Hendrixarney Other [facility] Other Start: 08-08-2021 Office outpatient vi sit [address] [facility] Start: 03-22-2021 Office outpatient vi sit 15 minutes Zena Hendrixarney [facility] Procedures Date Procedure Procedure Detail Performing Clinician Start: 05-28-2023 Epidural injection o f lumbar spine using fluoroscopic guidance MD Giana Bell Work Phone: Start: 05-07-2023 Injection of local anesthetic into sacroiliac joint MD Giana Bell Work Phone: Start: 04-23-2023 X-ray of lumbar spin e, four views MD Giana Bell Work Phone: Start: 02-12-2023 Injection of local anesthetic into sacroiliac joint MD Giana Bell Work Phone: Start: 11-05-2022 X-ray of left knee MD Robyn Bell Work Phone: Start: 10-23-2022 Injection of spinal epidural space MD Giana Bell Work Phone: Start: 10-09-2022 Plain X-ray of left wrist MD Giana Bell Work Phone: Start: 08-07-2022 Epidural injection o f lumbar spine using fluoroscopic guidance MD Giana Bell Work Phone: Appendectomy ZENA POTTER Cholecystectomy ZENA ANAYA Hysterectomy ZENA POTTER Plan of Treatment Date Care Activity Detail Author Start: 05-28-2023 [facility] Start: 05-07-2023 [facility] Start: 02-12-2023 [facility] Start: 10-23-2022 [facility] Start: 08-07-2022 [facility] Patient Education Kay Non Brinda gnostic Block [facility] Work Phone: Patient referral [facility] Work Phone: Immunizations Immunization Date Immunization Notes [facility] Provider [facility] Prevnar 20 Eric Villanueva Other [facility] Other 04-17-2022 COVID-19 Pfizer (Pediatric) Eric Villanueva Other [facility] Other 04-17-2022 influenza virus vaccine, split virus (incl. purified surface antigen) Eric Villanueva Other [facility] Other 04-14-2021 COVID-19 Vaccine Pfi zer - Documentation Purposes Only Eric Villanueva Other [facility] Other 04-14-2021 influenza virus vaccine, split virus (incl. purified surface antigen) Eric Villanueva Other [facility] Other 03-24-2021 SARS-CoV-2 (COVID-19 ) Ad26 vaccine, recombinant ZENA POTTER [facility] 03-22-2021 Kenalog -40 mg Zena quintero Other [facility] Other 11-16-2020 Kenalog -40 mg Zena quintero Other [facility] Other 08-22-2020 SARS-CoV-2 (COVID-19 ) Ad26 vaccine, recombinant ZENA POTTER [facility] 07-25-2020 SARS-CoV-2 (COVID-19 ) Ad26 vaccine, recombinant ZENA POTTER [facility] 06-20-2020 zoster vaccine, live Eric Villanueva Other [facility] Other 01-07-2020 zoster vaccine, live Eric Villanueva Other [facility] Other 05-05-2019 influenza virus vaccine, split virus (incl. purified surface antigen) Eric Villanueva Other [facility] Other 04-07-2018 influenza virus vaccine, split virus (incl. purified surface antigen) Eric Villanueva Other [facility] Other 03-21-2016 diphtheria, tetanus toxoids and acellular pertussis vaccine, unspecified formulation Eric Villanueva Other [facility] Other 12-01-2015 pneumococcal polysaccharide vaccine, 23 valent Eric Villanueva Other [facility] Other 03-23-2013 pneumococcal conjuga te vaccine, 13 valent Eric Villanueva Other [facility] Other pneumococcal Conjuga te, unspecified formulation; Translations: [Need for prophylactic vaccination against Streptococcus pneumoniae (pneumococcus)] Eric Villanueva Other [facility] Other Payers Date Payer Category Payer Self-pay [id number] 1959 Medicare [id number] 1959 Unknown [id number] [id number] 1950 Unknown [id number] 2.16.840.1.845131.3.579.2.727 1950 Unknown [id number] 2.16.840.1.484729.3.579.2.593 1950 Unknown [id number] 2.16.840.1.870395.3.579.2.593 1950 Unknown [id number] 2.16.840.1.103701.3.579.2.593 1950 Unknown [id number] 2.16.840.1.473516.3.579.2.593 1950 Unknown [id number] 2.16.840.1.515453.3.579.2.593 1950 Unknown [id number] 2.16.840.1.914016.3.579.2.593 1950 Unknown [id number] 2.16.840.1.451620.3.579.2.593 1950 Unknown [id number] 2.16.840.1.751846.3.579.2.593 1950 Unknown [id number] 2.16.840.1.336844.3.579.2.593 Private Health Insurance [facility] [id number] Unknown [employer] [id number] Unknown HCAP/HFA/FAP Active [id number] Unknown [id number] 2.16.840.1.730232.3.579.2.531 Unknown [id number] 2.16.840.1.251224.3.579.2.531 Unknown [id number] 2.16.840.1.834008.3.579.2.531 Unknown [id number] 2.16.840.1.646878.3.579.2.531 Unknown [id number] 2.16.840.1.086229.3.579.2.531 Unknown [id number] 2.16.840.1.330660.3.579.2.531 Unknown [id number] 2.16.840.1.587207.3.579.2.531 Unknown [id number] 2.16.840.1.777680.3.579.2.531 Social History Date Type Detail Facility Unknown if ever smoked [facility] Start: 08-07-2022 End: 05-07-2023 Tobacco smoking status NHIS Never smoked tobacco (finding) [facility] Start: 1950 Sex Assigned At Female F [facility] Tobacco smoking status Never [facility] Goals Date Patient Goal Desired Activity /State Clinical Notes 03-22-2021 to 09-13-2023 Note Date & Type Note Facility 09-13-2023 Note Patient here for [facility] ED for chest pain in Jul 2023. 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 Last stress test was performed in Feb 2022, prior to heart cath with Dr. Torres. She's been having severe chest pain that wakes her up in the middle of the night. Says ED physician told her the pain is musculoskeletal but she denies much physical activity. C/o worsening SOB w/ exertion and fatigue. Review of Systems Constitutional: Positive for malaise/fatigue. Cardiovascular: Positive for chest pain, dyspnea on exertion (worsening) and leg swelling. Respiratory: Positive for sleep disturbances due to breathing and wheezing. Neurological: Positive for loss of balance. Allergic/Immunologic: Positive for environmental allergies. All other systems reviewed and are negative. [facility] 07-15-2023 Evaluation note Encounter Date Diagnosis Assessment Notes Jun, Mixed hyperlipidemia (ICD-10 - E78.2) [facility] Other 12-13-2023 Evaluation note* Encounter Date Diagnosis Assessment Notes Treatment Notes Treatment Clinical Notes May, Type 2 diabetes mellitus with hyperglycemia (ICD-10 - E11.65) Healthy diet and exercise encouraged. Weight loss helps to reduce blood sugars and A1C. Wear supportive shoes, avoid open toed shoes. Check feet daily. May, Essential (primary) hypertension (ICD-10 - I10) Blood pressure remains well controlled at this time. Denies cardiac symptoms. Shows no signs or symptoms or poor control. Patient to continue with above medication and we will continue to monitor. Advised to pay attention to body and symptoms. Any developing patterns. Stay well hydrated. May, Mixed hyperlipidemia (ICD-10 - E78.2) Patient encouraged to monitor diet and exercise regularly & remain active as tolerated. Continue with prescribed medications. We will continue to monitor with routine lab work. May, Chronic diarrhea (ICD-10 - K52.9) declines GI referral at this time. [facility] Other 11-27-2023 Evaluation note* Encounter Date Diagnosis Assessment Notes Treatment Notes Treatment Clinical Notes Apr, Other spondylosis with radiculopathy, lumbar region (ICD-10 - M47.26) Patients primary complaint today is severe pain radiating into the lateral aspect of her right lower extremity, extending into her foot. Based on location of pain and exam findings, patient would be a reasonable candidate to proceed with a lumbar epidural steroid injection which we will proceed with. Risks and benefits of procedure explained to patient; patient verbalizes understanding. We will follow up with the patient one week following her procedure. Anatomy of spine discussed in detail with patient in regards to patients condition. Apr, Degenerative disc disease, lumbar (ICD-10 - M51.36) 27 Nov, 2023 Chronic pain (ICD-10 - G89.29) Apr, Other Above note written by Arian Alanis MA, [employer]. Edited and approved by Dr. Eric Villanueva MD. [facility] Other 11-15-2023 NoteCardiovascular Medicine [facility] SUBJECTIVE HPI: Libra Noonan is a 72 y.o. female here for Follow-up, Hypertension, Coronary Artery Disease, and Hyperlipidemia . HPI PMHx: Uncontrolled DM type II, obesity, lower back pain, mild to moderate CAD per 02/2022 cath, HLD She see's Dr. Villanueva with pain management. She has been doing well from a cardiac standpoint. She denies any changes since last seen. She is getting back injections every 3 months. She continues to have GALLAGHER that is unchanged, contributed to her weight, deconditioning and ongoing lower back pain. Her LE swelling is unchanged. She denies CP, orthopnea, PND, dizziness/LH, palpitations. She c/o gradual weight gain related to her immobility 2/2 to her back pain. Family History Problem Relation Name Age of Onset Rheumatic fever Mother Heart failure Mother Stroke Mother Other (cardiac pacemaker) Mother She is unsure if this was a defibrillator Stroke Father Past Surgical History: Procedure Laterality Date CARDIAC CATHETERIZATION 03/23/2022 CHOLECYSTECTOMY HYSTERECTOMY TOTAL KNEE ARTHROPLASTY Social History Tobacco Use Smoking status: Never Smokeless tobacco: Never Substance Use Topics Alcohol use: Not Currently Allergies Allergen Reactions Adhesive Tape-Silicones carrion skin Oxycodone-Acetaminophen GI intolerance and Rash Propoxyphene N-Acetaminophen GI intolerance and Rash Review of Systems Constitutional: Positive for weight gain. Negative for chills, decreased appetite, fever and malaise/fatigue. Cardiovascular: Positive for dyspnea on exertion and leg swelling. Negative for chest pain, irregular heartbeat, near-syncope, orthopnea, palpitations, paroxysmal nocturnal dyspnea and syncope. Hematologic/Lymphatic: Negative for bleeding problem. Does not bruise/bleed easily. OBJECTIVE Visit Vitals BP 126/84 Pulse 87 Ht 1.575 m (5' 2 ) Wt (!) 147 kg (325 lb) SpO2 97% BMI 59.44 kg/m??? Smoking Status Never BSA 2.54 m??? Current Outpatient Medications on File Prior to Visit Medication Sig Dispense Refill albuterol 2.5 mg /3 mL (0.083 %) nebulizer solution INHALE 1 (ONE) vial via NEBULIZER FOUR TIMES DAILY NEEDED aspirin 81 mg capsule Take 81 mg by mouth in the morning. atorvastatin (Lipitor) 80 mg tablet Take 80 mg by mouth at bedtime. cholecalciferol (Vitamin D-3) 50 MCG (2000 UT) tablet Take 2,000 Units by mouth in the morning. fexofenadine (Nevaeh) 180 mg tablet Take 180 mg by mouth in the morning. As needed glipiZIDE (Glucotrol) 5 mg tablet Take 5 mg by mouth in the morning. insulin NPH and regular human (NovoLIN) 100 unit/mL (70-30) injection Inject under the skin before breakfast and before evening meal. lisinopril 5 mg tablet Take 1 tablet (5 mg) by mouth once daily as directed. 90 tablet 3 pregabalin (Lyrica) 75 mg capsule Take 75 mg by mouth in the morning. As needed [DISCONTINUED] calcium carbonate-vitamin D3 500 mg-5 mcg (200 unit) tablet Take 1 tablet by mouth in the morning. [DISCONTINUED] carvedilol (Coreg) 6.25 mg tablet Take 1 tablet (6.25 mg) by mouth with breakfast and with evening meal. 180 tablet 3 [DISCONTINUED] ciprofloxacin (Ciloxan) 0.3 % ophthalmic solution INSERT 1-2 DROPS into affected eye EVERY 2 HOURS FOR 2 DAYS (no more than EIGHT times a day), then INSERT 1-2 DROPS FOUR TIMES DAILY FOR 5 DAYS [DISCONTINUED] ezetimibe (Zetia) 10 mg tablet Take 1 tablet (10 mg) by mouth in the morning. 90 tablet 3 [DISCONTINUED] amitriptyline (Elavil) 25 mg tablet Take one (1) tablet at bedtime [DISCONTINUED] cloNIDine (Catapres) 0.3 mg tablet Take one tab QD [DISCONTINUED] cyclobenzaprine (Flexeril) 5 mg tablet Take 5 mg by mouth if needed each day. [DISCONTINUED] esomeprazole (NexIUM) [address] capsule Take one tab QD [DISCONTINUED] estradiol (Estrace) 1 mg tablet Take one tab QD [DISCONTINUED] losartan-hydrochlorothiazide (Hyzaar) 100-25 mg tablet Take one tab QD [DISCONTINUED] ondansetron ODT (Zofran-ODT) 4 mg disintegrating tablet DISSOLVE 1 (ONE) TABLET ON THE TONGUE THREE TIMES DAILY NEEDED No current facility-administered medications on file prior to visit. Physical Exam Vitals reviewed. Constitutional: Appearance: She is obese. HENT: Head: Normocephalic and atraumatic. Mouth/Throat: Mouth: Mucous membranes are moist. Pharynx: Oropharynx is clear. Eyes: Extraocular Movements: Extraocular movements intact. Pupils: Pupils are equal, round, and reactive to light. Neck: Vascular: No carotid bruit. Cardiovascular: Rate and Rhythm: Normal rate and regular rhythm. Pulses: Normal pulses. Heart sounds: Normal heart sounds. Pulmonary: Effort: Pulmonary effort is normal. Breath sounds: Normal breath sounds. Abdominal: General: Bowel sounds are normal. Palpations: Abdomen is soft. Musculoskeletal: Cervical back: Normal range of motion. Skin: General: Skin is warm and dry. Neurological: (more content not included)...[facility] 04-23-2023 Evaluation note* Encounter Date Diagnosis Assessment Notes Treatment Notes Treatment Clinical Notes Mar, Trochanteric bursitis (ICD-10 - M70.60) Mar, Sacroiliitis (ICD-10 - M46.1) We discussed treatment options for the patient's persistent low right lumbar/gluteal pain. She shows notable pain consistent with the sacroiliac joint. She has failed multiple previous conservative treatment options. Given location of pain and exam findings, patient is a candidate for right sacroiliac joint injection, which we will proceed with. Risks and benefits of procedure explained to patient; patient verbalizes understanding. We will obtain updated imaging today and call the patient with any significant findings. Anatomy of spine discussed in detail with patient in regard to patients condition. Mar, Chronic pain (ICD-10 - G89.29) Mar, Other Above note writ ten by Emi Gutierrez LPN, [employer]. Edited and approved by Dr. Eric Villanueva MD. [facility] Other 09-13-2023 Evaluation note* Encounter Date Diagnosis Assessment Notes Treatment Notes Treatment Clinical Notes Feb, Type 2 diabetes mellitus with hyperglycemia (ICD-10 - E11.65) Goal: Maintain A1c below 7.0% by being compliant with prescribed medications, diet & exercise plan prior to f/u visit. Laboratory results were reviewed with patient. STATUS: New/continous Reviewed glucose of 249 - will increase dose of glipizide. [facility] Other 09-07-2023 Evaluation note* Encounter Date Diagnosis Assessment Notes Treatment Notes Treatment Clinical Notes Feb, Trochanteric bursitis (ICD-10 - M70.60) Feb, Sacroiliitis (ICD-10 - M46.1) Patient is voicing minimal complaints of pain at this time. She attributes this to a recent left sacroiliac joint and trochanteric bursa injection. We will continue to monitor her symptoms in this region. In the meantime she will continue with Tylenol and Flexeril as needed. Anatomy of spine discussed in detail with patient in regard to patients condition. Overall, patient believes their pain is reasonably well controlled, and she agrees with our treatment plan. We will follow up with her as needed. Feb, Chronic pain (ICD-10 - G89.29) Feb, Other Above note writ ten by Emi Gutierrez LPN, [employer] [facility]. Edited and approved by Dr. Eric Villanueva MD. [facility] Other 08-22-2023 Procedure [facility]08-22-2023 Procedure [facility]08-17-2023 Evaluation note* Encounter Date Diagnosis Assessment Notes Treatment Notes Treatment Clinical Notes Jan, Trochanteric bursitis (ICD-10 - M70.60) Patient is also volcalizing complaints of pain over the outide of the left hip. She shows notable tenderness over the trochanteric bursa upon exam. Based on location of pain and exam findings, patient is a candidate for a left trochanteric bursa injection which we will proceed with in conjunction with a left sacroiliac joint injection. Risks and benefits of procedure explained to patient; patient verbalizes understanding. Jan, Sacroiliitis (ICD-10 - M46.1) Patients primary complaint today is left lumbar and gluteal pain. She shows notable tenderness over the left sacroiliac joint upon exam today. Based on location of pain and exam findings, patient is a candidate for a left sacroiliac joint injection which we will proceed with. Risks and benefits of procedure explained to patient; patient verbalizes understanding. Anatomy of spine discussed in detail with patient in regards to patients condition. Jan, Chronic pain (ICD-10 - G89.29) Jan, Other Above note writ ten by Arian Alanis MA, [employer]. Edited and approved by Dr. Eric Villanueva MD. [facility] Other 07-10-2023 Evaluation note* Encounter Date Diagnosis Assessment Notes Treatment Notes Treatment Clinical Notes Dec, Dysuria (ICD-10 - R30.0) [facility] Other 06-14-2023 Evaluation note* Encounter Date Diagnosis Assessment Notes Treatment Notes Treatment Clinical Notes Nov, Type 2 diabetes mellitus with hyperglycemia (ICD-10 - E11.65) Pt will increase 70/30 insulin to 30 units daily from 25 units daily. Her A1C has not been near goal for some time. Could be related to possible UTI presently, but pt does agree to referral to Diabetes clinic. Glucose in office today is 427. Has been resistant to other insulins or diabetes products due to concerns for cost. Pt becomes presyncopal and hypotensive in office. Family contacted to come drive her home. Discussed ER if symptoms worsen. Nov, custodial (current) use of insulin (ICD-10 - Z79.4) Nov, UTI symptoms (ICD-10 - R39.9) Urine culture is normal last week, but has multiple symptoms of UTI - fever, frequency, bladder discomfort and hyperglycemia. Will treat based on symptoms Nov, Nausea and vomiting in adult (ICD-10 - R11.2) Add zofran for present symptoms and because she is often nauseated with antibiotics. Nov, Mixed hyperlipidemia (ICD-10 - E78.2) chronic - pt requests a refill [facility] Other 06-06-2023 Evaluation note* Encounter Date Diagnosis Assessment Notes Treatment Notes Treatment Clinical Notes Nov, Dysuria (ICD-10 - R30.0) [facility] Chief Complaint: Patient here for 3 mo follow up CAD, hypertension, and hyperlipidemia. She had labs last week. Sara Louis CNP increased carvedilol to 6.25mg bid at last apt on 07/31/22. Says her BP has been great ever since this change. C/o worsening SOB with exertion. Getting intermittent aches in the left side of her chest. Denies LE edema HPI: Libra Noonan is a 71 y.o. female PMHx: Uncontrolled DM type II, obesity, lower back pain, mild to moderate CAD per 02/2022 cath, HLD Feels better; no chest pain. Blood pressure markedly improved. Continues to have exertional shortness of breath. Pertinently, the patient had RSV pneumonia in June of this year. She does not see a negative checker Cardiology ROS: Review of Systems Constitutional: Positive for malaise/fatigue and weight loss (8# since 07/31/2022). Cardiovascular: Positive for chest pain ( aches ) and dyspnea on exertion. Leg swelling: from gabapentin . Respiratory: Positive for cough. Musculoskeletal: Positive for back pain, falls, joint pain and myalgias. Neurological: Positive for light-headedness. All other systems reviewed and are negative. Past Medical History She has a past medical history of Coronary artery disease, Diabetes mellitus (CMS/HCC), Hyperlipidemia, and Hypertension. Surgical History She has a past surgical history that includes Cholecystectomy; Total knee arthroplasty; Hysterectomy; and Cardiac catheterization (03/23/2022). Social History She reports that she has never smoked. She has never used smokeless tobacco. She reports that she does not currently use alcohol. No history on file for drug use. Family History Family History Problem Relation Name Age of Onset Rheumatic fever Mother Heart failure Mother Stroke Mother Other (cardiac pacemaker) Mother She is unsure if this was a defibrillator Stroke Father Allergies Patient has no known allergies. Medications Current Outpatient Medications: aspirin 81 mg capsule, Take 81 mg by mouth in the morning., Disp: , Rfl: atorvastatin (Lipitor) 80 mg tablet, Take 80 mg by mouth at bedtime., Disp: , Rfl: calcium carbonate-vitamin D3 500 mg-5 mcg (200 unit) tablet, Take 1 tablet by mouth in the morning., Disp: , Rfl: carvedilol (Coreg) 6.25 mg tablet, Take 1 tablet (6.25 mg) by mouth with breakfast and with evening meal., Disp: 180 tablet, Rfl: 3 ezetimibe (Zetia) 10 mg tablet, Take 1 tablet (10 mg) by mouth in the morning., Disp: 90 tablet, Rfl: 3 gabapentin (Neurontin) 300 mg capsule, Take 300 mg by mouth in the morning and at bedtime., Disp: , Rfl: glipiZIDE (Glucotrol) 5 mg tablet, Take 5 mg by mouth in the morning., Disp: , Rfl: insulin NPH and regular human (NovoLIN) 100 unit/mL (70-30) injection, Inject under the skin before breakfast and before evening meal., Disp: , Rfl: Last Recorded Vitals BP 128/80 (BP Location: Left arm, Patient Position: Sitting) Pulse 92 Ht 1.626 m (5' 4 ) Wt (!) 141 kg (311 lb) SpO2 97% BMI 53.38 kg/m??? Physical Examination: GENERAL: alert and oriented x3, well developed, in no acute distress. HEAD: atraumatic, normocephalic. EYES: LYNNETTE, EOMI. NECK: trachea midline, no JVD present, no carotid bruits present. CARDIAC: S1, S2 present. RRR. No murmur, rubs, or gallops. RESPIRATORY: CTAB, no increased effort of breathing, no rales, rhonchi, or wheezing. ABDOMEN: soft, nontender, nondistended. EXTREMITIES: no lower extremity edema, peripheral pulses are 2+ bilaterally. No rash/skin discoloration present. NEURO: strength/sensation equal and symmetric in bilateral upper and lower extremities. PSYCH: appropriate mood, affect, and judgement. Investigations: Echocardiogram 05/08/2022: Global left ventricular systolic function is hyperdynamic; EF 65 to 70%. Mild concentric left ventricular hypertrophy. Normal diastolic function. Normal right ventricular size and systolic function. No significant valvular abnormalities. Cardiac cath (03/23/2022) IMPRESSIONS: Mild to moderate disease of the mid left anterior descending coronary artery Mild disease of the right coronary artery Normal global left ventricular systolic function by noninvasive imaging Severe systemic hypertension RECOMMENDATIONS: The patient is at acceptable risk to proceed with surgery and/or procedures without further cardiovascular testing. Recommend strict heart rate and blood pressure control and avoidance of major fluid shifts Aggressive cardiovascular factor modification Optimal medical therapy should include aspirin, high intensity statin therapy, beta-monika plus or minus angiotensin-converting enzyme inhibitor Aggressive antihypertensive regimen given her severe systemic hypertension Follow-up with [facility] as scheduled Follow-up with her primary care physician as scheduled EKG 03/08/2022: sinus rhythm NM stress test (03/08/2022) Moderate si (more content not included)...[facility] 10-09-2022 Evaluation note* Encounter Date Diagnosis Assessment Notes Treatment Notes Treatment Clinical Notes Sep, Left wrist pain (ICD-10 - M25.532) Sep, Left wrist tendonitis (ICD-10 - M77.8) Xrays were reviewed with the patient today, along with a physical examination. Patient does seem to have tendonitis, arthritis, and carpal tunnel which all combribute to her ongoing wrist pain. We will the best treatment would be the use of a cortisone injection, We performed a cortisone injection into the carpal tunnel under sterile technique. The patient tolerated this well without complication. We discussed that the wrist/hand may feel numb and tingle for hours after this injection. Sep, Arthritis of left wrist (ICD-10 - M19.032) Sep, Carpal tunnel syndrome of left wrist (ICD-10 - G56.02) [facility] Other 03-14-2023 Evaluation note* Encounter Date Diagnosis Assessment Notes Treatment Notes Treatment Clinical Notes Aug, Benign skin lesion o f neck (ICD-10 - L98.9) Verbal consent obtained. skin lesion treated with Cryofreeze. Pt tolerated well. Gave her post procedure care form. Aug, Type 2 diabetes mellitus with hyperglycemia (ICD-10 - E11.65) Pt will have lab before next appt. Continue present meds for chronic problem. 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 Continue present meds for chronic problem. [facility] Other 03-03-2023 Evaluation note* Encounter Date Diagnosis Assessment Notes Treatment Notes Treatment Clinical Notes Aug, Other spondylosis with radiculopathy, lumbar region (ICD-10 - M47.26) [facility] Other 02-21-2023 Evaluation note* Encounter Date Diagnosis Assessment Notes Treatment Notes Treatment Clinical Notes Jul, Chronic pain (ICD-10 - G89.29) Jul, Other spondylosis with radiculopathy, lumbar region (ICD-10 - M47.26) Patient is voicing minimal complaints of pain at this time. She attributes this to a recent lumbar epidural steroid injections. We will continue to monitor her symptoms in this region. In the meantime, she will continue Lyrica 75 MG twice daily. We will provide a prescription for Cyclobenzaprine once daily as needed for muscle spasms. Risks and side effects of this medication was discussed in detail with the patient who voiced understanding. Anatomy of spine discussed in detail with patient in regard to patients condition. We will follow up with her in three months, sooner if needed. Jul, Other Above note writ ten by Emi Gutierrez LPN, [employer]. Edited and approved by Dr. Eric Villanueva MD. [facility] Other 02-03-2023 NotePROCEDURE: XR HIP RT 2 3V W PELVIS HISTORY: Pain in right hip joint since falling 2 months ago COMPARISON: None. FINDINGS: BONES:Small degenerative osteophytes along the inferior margin of the femoral head articular surface. No fracture, dislocation, bone lesion. No significant joint space narrowing. SOFT TISSUES:No visible soft tissue swelling. EFFUSION:None visible. OTHER: Negative. IMPRESSION: 1. No appreciable acute abnormality. 2. Mild degenerative joint disease. Electronically authenticated by: MIGUEL ANGEL CABALLERO Date: 2022-07-27 09:17[facility]01-24-2023 Evaluation note* Encounter Date Diagnosis Assessment Notes Treatment Notes Treatment Clinical Notes Jun, Other spondylosis with radiculopathy, lumbar region (ICD-10 - M47.26) [facility] Other 10-24-2022 Evaluation note* Encounter Date Diagnosis Assessment Notes Treatment Notes Treatment Clinical Notes Mar, Other spondylosis with radiculopathy, lumbar region (ICD-10 - M47.26) [facility] Other 09-19-2022 Evaluation note* Encounter Date Diagnosis Assessment Notes Treatment Notes Treatment Clinical Notes Feb, Chronic pain (ICD-10 - G89.29) Feb, Other spondylosis with radiculopathy, lumbar region (ICD-10 - M47.26) We discussed treatment options for the patient's persistent lumbar pain, radiating into her left lower extremities. Patient has exhausted mulitple previous treatment options. Recent MRI results show evidence of moderate to severe spinal stenosis, consistent with her symptoms. Given the MRI results, as well as location of pain and exam findings, patient is a candidate for a lumbar epidural steroid injection which we will proceed with. Risks and benefits of procedure explained to patient; patient verbalizes understanding. We will plan on trialing Gabapentin 300 mg two times daily. Risks and side effects of this medication was discussed in detail with the patient who voiced understanding. Anatomy of spine discussed in detail with patient in regards to patients condition. Feb, Lumbar pain (ICD-10 - M54.50) Feb, Other Above note written by Emi Gutierrez LPN, [employer]. Edited and approved by Dr. Eric Villanueva MD. Medical decision making shows a new problem to me with further workup planned or suggested with the potential for extensive treatment options that were considered with the most applicable given this patient's situation as noted above. Treatment options considered include a combination of physical therapy approaches, pharmacologic management, and interventional procedures. Those most applicable to the patient were discussed at this time. Risk of complications and/or morbidity and mortality is high given that acute and chronic pain poses a threat to life and bodily function if undertreated, poorly treated or with failure to maintain adequate treatment and timely followup. Given the serious and fluctuating nature of pain with extensive consideration for whenever pain changes, there always remains the possibility of prolonged functional impairment requiring constant patient reassessment and high-level medical decision making. The amount and complexity of data reviewed is high given that patient labs, radiology reports, and other test were obtained, reviewed and summarized as applicable from the physician portal and/or outside medical records. Pertinent positive and negative findings were considered in medical decision-making. [facility] Other 09-06-2022 Evaluation note* Encounter Date Diagnosis Assessment Notes Treatment Notes Treatment Clinical Notes Feb, Primary osteoarthritis of left knee (ICD-10 - M17.12) Feb, Acute pain of left knee (ICD-10 - M25.562) [facility] Other 08-16-2022 Evaluation note* Encounter Date Diagnosis Assessment Notes Treatment Notes Treatment Clinical Notes Jan, Primary osteoarthritis of left knee (ICD-10 - M17.12) Physical exam was done today, We performed a 2/1cc Marcaine / Kenalog cortisone injection into the knee joint under sterile technique. Patient tolerated the injection well without adverse reaction. Patient will be referred to Dr. Villanueva for possible lumbar injections. Patient can f/u with us as needed. Jan, Acute pain of left knee (ICD-10 - M25.562) [facility] Other 07-13-2022 Evaluation note* Encounter Date Diagnosis Assessment Notes Treatment Notes Treatment Clinical Notes Dec, Cough, unspecified type (ICD-10 - R05.9) Dec, Bronchitis (ICD-10 - J40) Acute bronchitis home care material was printed Drink plenty fluids, get plenty of rest. Take your home medications as prescribed. Use your albuterol inhaler as prescribed as needed for cough or shortness of breath. Take the azithromycin and prednisone as prescribed until gone. Follow-up with your family physician if no improvement in 2 to 3 days. Go to the ER for worsening symptoms or concerns [facility] Other 05-16-2022 Evaluation note* Encounter Date Diagnosis Assessment Notes Treatment Notes Treatment Clinical Notes October, Primary osteoarthritis of left knee (ICD-10 - M17.12) We performed a 7/3cc marcaine / kenalog cortisone injection into the knee joint under sterile technique. Patient tolerated the injection well without adverse reaction. Patient is to call if pain has not improved, in this case we will consider gel injections for her left knee. Patient has an appt in 3 months as well October, Acute pain of left knee (ICD-10 - M25.562) [facility] Other 02-15-2022 Evaluation note* Encounter Date Diagnosis Assessment Notes Treatment Notes Treatment Clinical Notes Jul, Primary osteoarthritis of left knee (ICD-10 - M17.12) We discussed and demonstrated gentle motion exericses as well as quadriceps and hamstring strengthening exerices. We performed a cortisone injection into the left knee joint under sterile technique. Patient tolerated the injection well without adverse reaction. 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 Patient tolerated the injection well without adverse reaction. 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 evaluation noteNo [facility] Other Evaluation noteNo assessment information available [facility] Work Phone: [facility] general Narrative - Reported* Type Description Date Medical History Diabetes Medical History Hypertension Medical History Hypercholesteremia Medical History chronic depression Medical History anxiety Surgical History tonsillectomy Surgical History appendectomy Surgical History cholecystectomy Surgical History knee replacement Surgical History hysterectomy Surgical History laparoscopy Surgical History carpal tunnel release Surgical History wisdom teeth extract Hospitalization History see above [facility] Other [facility] general Narrative - Reported* Type Description Date Medical History Diabetes Medical History Hypertension Medical History Hypercholesteremia Medical History chronic depression Medical History anxiety Surgical History tonsillectomy Surgical History appendectomy Surgical History cholecystectomy Surgical History knee replacement Surgical History hysterectomy Surgical History laparoscopy Surgical History carpal tunnel release Surgical History wisdom teeth extract Hospitalization History see above Hospitalization History [facility] 2021 [facility] Other History general Narrative - Reported* Type Description Date Medical History Diabetes Medical History Hypertension Medical History Hypercholesteremia Medical History chronic depression Medical History anxiety Surgical History tonsillectomy Surgical History appendectomy Surgical History cholecystectomy Surgical History knee replacement Surgical History hysterectomy Surgical History laparoscopy Surgical History carpal tunnel release Surgical History wisdom teeth extract Surgical History Epiderral 07/2022 Hospitalization History see above Hospitalization History [facility] 2021 [facility] Other Hospital Discharge instructions No data available for this section [facility] progress note No data available for this section [facility] Reason for Referral Reason *Waiting for appt Uncontrolled type 2 diabetes - on ; A1Cs will be scanned in from 2021. Diagnosis 1 Type 2 diabetes jayda itus with hyperglycemia (E11.65) Referral Organization [facility] Medical [facility] armen Referring Provider First Name Giana Referring Provider Last Name Ray Referring Provider Specialty Family Medi cine Referred Organization [facility] Endocrinology Referred Provider Akash Hendrix Referred Address [address] ,[place],[address] Referred Provider Specialty Nurse Pracefren tionechiquita Referral Priority Routine General Notes Aylin Muñoz 03:32:36 PM >received today, sent p2p Reason *FU 02/21 Schedule with Ellen Villanueva for possible lumbar injections. Diagnosis 1 Primary osteoarthrit is of left knee (M17.12) Diagnosis 2 Spondylolisthesis of lumbar region (M43.16) Referral Organization [facility] ped[facility] Referring Provider First Name Zena Referring Provider Last Name Ricky Referring Provider Specialty Nurse Pract itioner Referred Organization [facility] Pain Managemen t [facility] [place] Referred Provider Eric Villanueva Referred Address [address],[place],[address] Referred Provider Specialty Pain Medicin e Referral Priority Routine General Notes Zena Michele 07:23:52 AM >p2p sent Zena Michele 02/14/2022 10:23:07 AM >not scheduled yet Chief Complaint and Reason for Visit Chief Complaint Back Pain Chief Complaint M25.532 Back Pain Chief Complaint M46.1 Back and Hip Pain Back Pain Family History No Family History Records Found Relationship Condition Age at Onset Recorded Date/T manda Not Specified Cerebrovascular accident (CVA) Unknown father Cerebrovascular accident (CVA) Unknown Malignant neoplasm Unknown Relationship Condition Age at Onset Recorded Date/T manda Not Specified Cerebrovascular accident (CVA) Unknown Diabetes mellitus Unknown father Malignant neoplasm Unknown Cerebrovascular accident (CVA) Unknown Relationship Condition Age at Onset Recorded Date/T manda Not Specified Diabetes mellitus Unknown Cerebrovascular accident (CVA) Unknown Congestive heart failure Unknown father Diabetes mellitus Unknown Malignant neoplasm Unknown Advance Directives No Advanced Directives Records Found Advance Directive Response Recorded Date/ Time Advance Directives No August 02, 2022 3:31pm Advance Directive Response Recorded Date/ Time Advance Directives No August 02, 2022 4:31pm Summary Purpose Additional Source Comments REASON FOR VISIT (unrecogniz ed section and content) Left Knee PainLeft Knee Pain Left Knee PainBLUE HONDA, EXPOSED, DIARRHEA, NAUSEA, FEVER, SOB, COUGH, RUNNY NOSELeft Knee PainReferral update - PMDurolane Left KneeCONSULT GAGE GARCÍA LUMBAR PAINPain management consultNo InformationNo InformationNo InformationxrayF/U LUMBAR EPIDURAL STEROID INJECTIONNo Information3 MONTH CHECK UP MBLeft Wrist PainprocedureLEFT LUMBAR TRANSFORAMINAL EPIDURAL STEROID INJECTION L4 L5 /VWmessage3 month Follow upmessagexrayBACK PAINLEFT SI & TROCHANTERIC BURSA INJ/DSFOLLOW UP AFTER LEFT SI & TROCH BURSA3 month Follow upRECHECK INCREASED PAINRIGHT SI JOINT AND RIGHT TROCH BURSA INJECTIONS /VWF/U RIGHT SI JOINT AND TROCH BURSA INJECTIONSLUMBAR EPIDURAL STEROID INJ L4 L5/DSmessage3 month Follow uprefill Care Teams (unrecognized sec tion and content) Team Status: Inactive Member Role Status Dates Giana Bell MD Primary Care Provider Active Eric Villanueva MD Attending Provider Active Team Status: Active Member Role Status Dates Giana Bell MD Primary Care Provider Active Team Status: Inactive Member Role Status Dates Giana Bell MD Primary Care Provider Active Alka Hankins MD Attending Provider Active Team Status: Inactive Member Role Status Dates Giana Bell MD Primary Care Provider Active ANGELO Miles Attending Provider Active INFORMATION SOURCE (unrecogn ized section and content) DATE CREATED AUTHOR 08/24/2022 Eron Casanova [facility] DATE CREATED AUTHOR AUTHOR'S ORGANIZ ATION 11/08/2022 [facility] DATE CREATED AUTHOR AUTHOR'S ORGANIZ ATION 06/06/2023 [facility] DATE CREATED AUTHOR AUTHOR'S ORGANIZ ATION 09/14/2023 [facility] FOR RECORDS PERTAINING TO PATIENTS WHO ARE OR HAVE BEEN ENROLLED IN A CHEMICAL DEPENDENCY/SUBSTANCEABUSE PROGRAM, SOME INFORMATION MAY BE OMITTED. This clinical summary was aggregated from multiple sources. Caution should be exercised in using it in the provision of clinical care. This summary normalizes information from multiple sources, and as a consequence, information in this document may materially change the coding, format and clinical context of patient data. In addition, data may be omitted in some cases. CLINICAL DECISIONS SHOULD BE BASED ON THE PRIMARY CLINICAL RECORDS. [facility]. provides no warranty or guarantee of the accuracy or completeness of information in this document.
--- NOTE | 2023-09-20 11:26 | CA_ITS ---
Patient Name: MARIAMA REYES MR#: [id number] : 1950 Exam Date: 09/20/2023 Ordering Doctor: DANIELA COE M.D. ECHOCARDIOGRAM REPORT PROCEDURE: CA ECHO DOPPLER COMPLETE INDICATIONS: Dyspnea on exertion, hypertension, diabetes COMPARISON: None. DESCRIPTION: COMPLETE ECHOCARDIOGRAM Real-time transthoracic echocardiography with 2D, M-mode, spectral and color flow Doppler performed. QUALITY: Technical quality was adequate. 62 , 324#, BSA 2.35 m2, BP 164/86 LEFT VENTRICLE: Normal chamber size. Mild concentric left ventricular hypertrophy. LV EF: Global left ventricular systolic function is normal; visually estimated ejection fraction 55 to 60%. No obvious wall motion abnormalities. DIASTOLIC: Normal diastolic function. ATRIAL SEPTUM: Inadequately seen. LEFT ATRIUM: Normal chamber size. RIGHT ATRIUM: Normal chamber size. RIGHT VENTRICLE: Normal chamber size. Normal systolic function. TRICUSPID VALVE: Normal mobility and thickness. No regurgitation. Unable to estimate right ventricular systolic pressure due to lack of measurable tricuspid regurgitation. MITRAL VALVE: Normal mobility and thickness. No evidence of mitral valve stenosis. There is no mitral annular calcification. Trivial mitral regurgitation. AORTIC VALVE: Normal trileaflet appearance. No visible sclerosis. Normal leaflet mobility. No evidence of aortic valve stenosis. No aortic regurgitation. AORTIC ROOT: Normal diameter and appearance. PULMONIC VALVE: Not well visualized. No stenosis. No regurgitation. PERICARDIUM: Anterior free space; trivial effusion versus fat pad. IVC: IVC is normal in size, does not fully collapse. CONCLUSION: 1. Global left ventricular systolic function is normal; visually estimated ejection fraction is 55 to 60% 2. Normal right ventricular size and systolic function 3. Mildly increased left ventricular wall thickness 4. Normal diastolic function 5. No significant valvular abnormalities 6. Anterior free space; trivial effusion versus fat pad Adult Echocardiography Procedure Report Left Ventricle LVEDD (3.7 - 5.6 cm): 4.79 cm LVESD (2.2 - 4.0 cm): 3.35 cm LVIVS thickness (0.6 - 1.2 cm): 1.03 cm LVPW thickness (0.5 - 1.0 cm): 1.09 cm e': 0.08 m/s E - e': 13.36 LVOT Max Gradient: 4.04 mm[Hg] LVOT Area (cm2): 1.01 m/s Peak Velocity (LVOT): 1.01 m/s Mean Velocity (LVOT): 0.67 m/s LVOT Diameter 2.13 cm Left Atrium LA Volume Index (2D A2C): 34.39 ml/m2 Left Atrium Systolic Dimension: 4.06 cm Mitral Valve MV E to A Ratio: 0.94 Mitral Valve A-Wave Peak Velocity: 1.09 m/s Mitral Valve E-Wave Peak Velocity: 1.02 m/s Right Ventricle Aorta AO Root Diam: 2.85 cm Ascending Ao Diam: 2.83 cm Aortic Valve AoV Area (Peak Torito): 2.34 cm2, 2.34 cm2 AoV Area (VTI): 2.39 cm2, 2.39 cm2 Peak Velocity(Antegrade Flow): 1.53 m/s Peak Gradient(Antegrade Flow): 9.30 mm[Hg] Mean Velocity(Antegrade Flow): 1.09 m/s Mean Gradient(Antegrade Flow): 5.27 mm[Hg] Velocity Time Integral: 33.90 cm Tricuspid Valve Pulmonic Valve Peak Gradient: 3.01 mm[Hg], 2.68 mm[Hg] Right Atrium Dictated by: Placido Torres M.D. on 09/23/2023 at 08:40 Approved by: Placido Torres M.D. on 09/23/2023 at 08:43
== END 2023-09-20 08:50 | disposition home or self-care (01) ==
LOC: CARD 08:49
PROVIDERS: PCP Family Medicine; Visit Provider Internal Medicine Cardiovascular Disease
DX: R06.09 Other forms of dyspnea (principal); R07.9 Chest pain, unspecified; I10 Essential (primary) hypertension
CPT/HCPCS: 78452; 93306; A9500

== ENCOUNTER 2023-10-07 09:16 | Outpatient (OUT) | payer MEDICARE, OTHER, SELFPAY ==
--- NOTE | 2023-10-07 | PCN_ITS ---
CARDIAC STRESS TEST Requesting Physician: Kenneth Hendricks M.D. Procedure Date: 10/07/2023 PERFORMING PROVIDER: Kenneth Hendricks M.D. STRESS TEST PROTOCOL: Lexiscan myocardial perfusion imaging. INDICATION: Chest pain, dyspnea. Resting heart rate: 81 Max heart rate: 97 Resting blood pressure: 138/74 Max blood pressure: 142/84 ST changes: No definite ST changes meeting the criteria for ischemia. Symptoms: None reported. Arrhythmias: None reported. CONCLUSION: 1. Baseline EKG shows normal sinus rhythm. 2. There were no definite EKG changes meeting the criteria for ischemia post Lexiscan infusion. 3. Please refer to separately interpreted and reported nuclear myocardial perfusion images. [facility]
--- OUTSIDE RECORDS SUMMARY | 2023-10-07 09:30 | XMS_ITS | CCD ---
Author Organization [facility] Care Team Providers Care Geoscience Technician Name Role Phone Zena García Unavailable Jazz Nance Unavailable Eric Villanueva Unavailable MD Giana Bell Primary Care Provider MD Eric Villanueva Attending Provider GIANA BELL Primary Care Physician [phone] ZENA POTTER Attending Unavailable Giana Bell Unavailable Alka Hankins Unavailable MD Giana Bell Primary Care Provider MD Alka Hankins Attending Provider MD Eric Villanueva Attending Provider ANGELO García Attending Provider DR GIANA BELL Admitting Unavailable RAY, DR GIANA Jefferson Primary Care Unavailable SIREN, DR ANN MARIE Gibbons Consulting Unavailable RAY, DR GIANA Jefferson [...] Care Provider MD Eric Villanueva Attending Provider [phone] MD Giana Bell Primary Care Provider MD [...] 19 Unknown (qualifier value) [facility] (6 sources) oxyCODONE; Translations: [oxycodone] Drug Allergy 03-20-20 22 Vomiting, constipation [facility] (6 sources) Propoxyphene; Translations: [propoxyphene] Drug Allergy 03-20-20 22 Vomiting [facility] (2 sources) acetaminophen / propoxyphene; Translations: [acetaminophen-p ropoxyphene] Drug Allergy Unknown (qualifier value) [facility] (2 sources) Acetaminophen / oxyCODONE; Translations: [Percocet] Drug Allergy 07-28-19 21 [facility] (11 sources) Lisinopril Drug Allergy 01-20-20 19 Unknown [facility] (11 sources) metFORMIN Drug Allergy 01-20-20 19 Unknown [facility] (11 sources) NITROFURANTOIN, MACROCRYSTALS / Nitrofurantoin, Monohydrate Drug Allergy Unknown [facility] (3 sources) Allergies Reconciled Propensity to adverse reactions Unknown [facility] (3 sources) patient allergy list reviewed by nurse or physicia Propensity to adverse reactions 01-21-20 Comment:Done [facility] Other (11 sources) Darvocet A500 *ANALGESICS - OPIOID* Propensity to adverse reactions 01-21-20 19 Unknown [facility] Other (1 source) Acetaminophen / oxyCODONE; Translations: [OXYCODONE-ACETA MINOPHEN] Drug Allergy 09-07-19 [facility] Repository (1 source) ADHESIVE TAPE-SILICONES; Translations: [ADHESIVE TAPE-SILICONES] Propensity to adverse reactions to drug (disorder) 08-04-19 03 [facility] (1 source) PROPOXYPHENE N-ACETAMINOPHEN; Translations: [PROPOXYPHENE N-ACETAMINOPHEN] Propensity to adverse reactions to drug (disorder) 09-07-19 21 [facility] Repository Medications Current Medications Medication Drug Class(es) [...] MonThu, # 42.5 gm, Refills(s) 3, Pharmacy: [facility] DANTE 536, 160, cm, 08/16/21 15:10:00 EST, [...] 8:57am Start: 08-28-2022 take 1 capsule by [facility] every twelve hours Lyrica 75 MG 1 [...] disease (2 sources) Atherosclerotic heart disease of [place] coronary artery without angina pectoris; Translations: [Atherosclerotic heart disease of [place] coronary artery without angina pectoris] Onset: 2 [...] sources) Long-term current use of insulin; 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 Hendricks. [facility] 36on 09-11-2023 36 Patient was seen in [facility] ED in Jul for chest pain. Says she's still having it often. She doesn't want to wait until 09/17 to see you in the office. Did you want testing prior to an office visit? I uploaded all the ED records into her media executive for your review. Please advise. Thanks. [facility] 36on 09-04-2023 36 I received a call from Dr. Bell's office. She asked me to reach out to Libra to get her scheduled for a follow up. She told me she's been having left-sided chest pain, and was evaluated in the ED recently. I LM on patient's VM asking her to return my call. [facility] Office Visiton 05-08-2023 Follow-up visit [id number] Libra Noonan 1950 F Date Provider Department Center 05/08/2023 [facility] Family History Problem Relation Age of Onset Rheumatic fever Mother Heart failure Mother Stroke Mother Other Mother Comments: She is unsure if this was a defibrillator Stroke Father Family Status - Relation Status Age at Mother Father Level of Service:33508 ME OFFICE/OUTPATIENT ESTABLISHED LOW MDM 20-29 MIN Reason for Visit and Comments: Follow-up [872586] Hypertension [491672] Coronary Artery Disease [187] Hyperlipidemia [182] [facility] XR lumbar spine AP/LAT/FLX/E XTon 04-23-2023 XR lumbar spine AP/LAT/FLX/EXT [facility] [place] [address] [place] [address] XRay Report Signed Patient: Libra Noonan MR#: [id number] : 1950 Acct:[id number] Age/Sex: 72 / F ADM Date: 04/23/23 Loc: [facility] Room: Type: [facility] Attending Dr: Eric Villanueva MD Copies to: [...] Jacinto Bolden M.D.04/23/2023 3:43 PM Dictation Location: [place] [address] Transcribed By: [facility] 04/23/23 1543 Dictated By: Jacinto Bolden DO 04/23/23 1539 Signed By: 04/23/23 1543 [facility] Office Visiton 11-13-2022 Follow-up visit [id number] Libra Noonan 1950 F Date Provider Department Center 11/13/2022 [facility] Family History Problem Relation Age of Onset Rheumatic fever Mother Heart failure Mother Stroke Mother Other Mother Comments: She is unsure if this was a defibrillator Stroke Father Family Status - Relation Status Age at Mother Father Level of Service:73870 ME OFFICE/OUTPATIENT ESTABLISHED MOD MDM 30-39 MIN Reason for Visit and Comments: Coronary Artery Disease [187] Hypertension [786115] Hyperlipidemia [182] Normal [facility] CBC AUTO DIFFon 11-06-2022 BASO # 0.0 103/ul Normal 0.0-0.1 [facility] Comment on above: Performed By: #### C BC #### [facility] [address] [place] [address] Dr. Dylan Santana Basophils/100 WBC (Bld) 0.2 % Normal 0.2-2.0 [facility] Comment on above: Performed By: #### C BC #### [facility] [address] [place] [address] Dr. Dylan Santana EO # 0.0 103/ul Normal 0.0-0.7 [facility] Comment on above: Performed By: #### C BC #### [facility] [address] [place] [address] Dr. Dylan Santana Eosinophils/100 WBC (Bld) 0.2 % Critically low 0.9-7.0 [facility] Comment on above: Performed By: #### C BC #### [facility] [address] [place] [address] Dr. Dylan Santana Erythrocyte distribution width (RBC) [Ratio] 12.1 % Normal 11.0-15.0 [facility] Comment on above: Performed By: #### C BC #### [facility] [address] [place] [address] Dr. Dylan Santana Hematocrit (Bld) [Volume fraction] 42.7 % Normal 36.0-48.0 [facility] Comment on above: Performed By: #### C BC #### [facility] [address] [place] [address] Dr. Dylan Santana Hemoglobin (Bld) [Mass/Vol] 13.9 g/dL Normal 12.0-16.0 [facility] Comment on above: Performed By: #### C BC #### [facility] [address] [place] [address] Dr. Dylan Santana IG # 0.05 10e3/ul Critically high 0.00-0.03 [facility] Comment on above: Performed By: #### C BC #### [facility] [address] [place] [address] Dr. Dylan Santana IG % 0.5 % Normal 0.0-0.5 [facility] Comment on above: Performed By: #### C BC #### [facility] [address] [place] [address] Dr. Dylan Santana LYMPH # 2.1 103/ul Normal 1.2-3.8 [facility] Comment on above: Performed By: #### C BC #### [facility] [address] [place] [address] Dr. Dylan Santana Lymphocytes/100 WBC (Bld) 20.8 % Normal 20.5-60.0 [facility] Comment on above: Performed By: #### C BC #### [facility] [address] [place] [address] Dr. Dylan Santana MANUAL DIFF REQ NO Normal [facility] Comment on above: Performed By: #### C BC #### [facility] [address] [place] [address] Dr. Dylan Santana MCH (RBC) [Entitic mass] 30.1 pg Normal 26.7-34.0 [facility] Comment on above: Performed By: #### C BC #### [facility] [address] [place] [address] Dr. Dylan Santana MCHC (RBC) [Mass/Vol] 32.6 g/dL Normal 29.9-35.2 [facility] Comment on above: Performed By: #### C BC #### [facility] [address] [place] [address] Dr. Dylan Santana MCV (RBC) [Entitic vol] 92.4 fL Normal 81.0-99.0 [facility] Comment on above: Performed By: #### C BC #### [facility] [address] [address] [address] Dylan Santana MONO # 0.4 103/ul Normal 0.3-0.8 [facility] Comment on above: Performed By: #### C BC #### [facility] [address] [place] [address] Dr. Dylan Santana Monocytes/100 WBC (Bld) 3.8 % Normal 1.7-12.0 [facility] Comment on above: Performed By: #### C BC #### [facility] [address] [place] [address] Dr. Dylan Santana NEUT # 7.6 103/ul Critically high 1.4-6.5 [facility] Comment on above: Performed By: #### C BC #### [facility] [address] [place] [address] Dr. Dylan Santana Neutrophils/100 WBC (Bld) 74.5 % Normal 43.0-75.0 [facility] Comment on above: Performed By: #### C BC #### [facility] [address] [place] [address] Dr. Dylan Santana Platelet mean volume (Bld) [Entitic vol] 10.4 fL Normal 9.5-13.5 [facility] Comment on above: Performed By: #### C BC #### [facility] [address] [place] [address] Dr. Dylan Santana PLT 228 103/ul Normal 150-450 [facility] Comment on above: Performed By: #### C BC #### [facility] [address] [place] [address] Dr. Dylan Santana RBC 4.62 106/ul Normal 4.20-5.40 [facility] Comment on above: Performed By: #### C BC #### [facility] [address] [place] [address] Dr. Dylan Santana WBC 10.2 103/ul Normal 4.0-11.0 [facility] Comment on above: Performed By: #### C BC #### [facility] [address] [place] [address] Dr. Dylan Santana GLYCOHEMOGLOBIN A1Con 2022 ADA RECOMMENDATION SEE BELOW Normal [facility] Comment on above: Result Comment: ADA RECOMMENDED LIMIT 4.0 - 6.0 ADA THERAPEUTIC TARGET < 7.0 ACTION SUGGESTED > 7.0 Performed By: #### A 1C #### [facility] [address] [address] [address] Dylan Santana Glucose [Mass/Vol] 214 mg/dL Normal [facility] Comment on above: Performed By: #### A 1C #### [facility] [address] [address] [address] Dylan Santana HbA1c (Bld) [Mass fraction] 9.1 % Critically high 4.5-6.2 [facility] Comment on above: Performed By: #### A 1C #### [facility] [address] [place] [address] Dr. Dylan Santana LIPID PROFILEon 11-06-2022 CHOL-HDL RATIO NORM SEE BELOW Normal [facility] Comment on above: Result Comment: 3.3 - 4.4 LOW RISK 4.4 - 7.1 AVERAGE RISK 7.1 - 11.0 MODERATE RISK >11.0 HIGH RISK Performed By: #### L IPID #### [facility] [address] [place] [address] Dr. Dylan Santana Cholesterol [Mass/Vol] 142 mg/dL Normal <=200 [facility] Comment on above: Performed By: #### L IPID #### [facility] [address] [place] [address] Dr. Dylan Santana Cholesterol in HDL [Mass/Vol] 74 mg/dL Critically high 40-60 [facility] Comment on above: Performed By: #### L IPID #### [facility] [address] [address] [address] Dylan Santana Cholesterol in LDL [Mass/Vol] 49.4 mg/dL Normal [facility] Comment on above: Performed By: #### L IPID #### [facility] [address] [place] [address] Dr. Dylan Santana Cholesterol.total/C holesterol in HDL [Mass ratio] 1.9 {ratio} Normal [facility] Comment on above: Performed By: #### L IPID #### [facility] [address] [address] [address] Dylan Santana HDL NORMAL > or = 60 mg/dl - LO W CARDIOVASCULAR RISK <40 mg/dl - HIGH CARDIOVASCULAR RISK Normal [facility] Comment on above: Performed By: #### L IPID #### [facility] [address] [address] [address] Dylan Santana LDL CALC NORMAL SEE BELOW Normal [facility] Comment on above: Result Comment: <100 mg/dl OPTIMAL 100 - 129 mg/dl NEAR OR ABOVE OPTIMAL 130 - 159 mg/dl BORDERLINE HIGH 160 - 189 mg/dl HIGH >190 mg/dl VERY HIGH Performed By: #### L IPID #### [facility] [address] [address] [address] Dylan Santana Triglyceride [Mass/Vol] 93 mg/dL Normal <=150 [facility] Comment on above: Performed By: #### L IPID #### [facility] [address] [address] [address] Dylan Santana VLDL CALC 18.6 mg/dL Normal [facility] Comment on above: Performed By: #### L IPID #### [facility] [address] [place] [address] Dr. Dylan Santana PROF CHEM 8 (BAS METB)on Anion gap [Moles/Vol] 12.8 mmol/L Normal [facility] Comment on above: Performed By: #### C BC #### [facility] [address] [place] [address] Dr. Dylan Santana Calcium [Mass/Vol] 9.5 mg/dL Normal 8.5-10.1 [facility] Comment on above: Performed By: #### C BC #### [facility] [address] [address] [address] Dylan Santana Chloride [Moles/Vol] 105 mmol/L Normal 98-107 [facility] Comment on above: Performed By: #### C BC #### [facility] [address] [address] [address] Dylan Santana CO2 [Moles/Vol] 28.1 mmol/L Normal 21.0-32.0 [facility] Comment on above: Performed By: #### C BC #### [facility] [address] [address] [address] Dylan Santana Creatinine [Mass/Vol] 1.29 mg/dL Critically high 0.55-1.02 [facility] Comment on above: Performed By: #### C BC #### [facility] [address] [address] [address] Dylan Santana EGFR-AF [place] 49 mL/min/1.73m2 Critically low >=60 [facility] Comment on above: Performed By: #### C BC #### [facility] [address] [address] [address] Dylan Santana EGFR-NON AF TUR[place] AND [place]ER 41 mL/min/1.73m2 Critically low >=60 [facility] Comment on above: Performed By: #### C BC #### [facility] [address] [address] [address] Dylan Santana Glucose [Mass/Vol] 290 mg/dL Critically high 74-106 [facility] Comment on above: Performed By: #### C BC #### [facility] [address] [address] [address] Dylan Santana Potassium [Moles/Vol] 4.9 mmol/L Normal 3.5-5.1 [facility] Comment on above: Performed By: #### C BC #### [facility] [address] [address] [address] Dylan Santana Sodium [Moles/Vol] 141 mmol/L Normal 136-145 [facility] Comment on above: Performed By: #### C BC #### [facility] [address] [address] [address] Dylan Santana Urea nitrogen [Mass/Vol] 30.0 mg/dL Critically high 7.0-18.0 [facility] Comment on above: Performed By: #### C BC #### [facility] [address] [address] [address] Dylan Snatana Urea nitrogen/Creatinine [Mass ratio] 23.3 mg/mg Normal [facility] Comment on above: Performed By: #### C #### [facility] [address] [place] [address] Dr. Dylan Santana XR knee LT 2Von 11-05-2022 XR knee LT 2V [facility] Main [place] [id number] XRay Report Signed Patient: Libra Noonan MR#: [id number] : 1950 Acct:[id number] Age/Sex: 71 / F ADM Date: 11/05/22 Loc: [facility] Room: Type: [facility] Attending Dr: Zena García NP-C Copies to: [...] Swenson Jr., D.OAsia11/05/2022 4:16 PM Dictation Location: [place] [address] Transcribed By: [facility] 11/05/22 1616 Dictated By: Gavin Swenson Jr, DO 11/05/22 1615 Signed By: 11/05/22 1616 Normal [facility] XR wrist LT 2Von 10-09-2022 XR wrist LT [address]V [address] [address] XRay Report Signed Patient: Libra Noonan MR#: [id number] : 1950 Acct:[id number] Age/Sex: 71 / F ADM Date: 10/09/22 Loc: [facility] Room: Type: [facility] Attending Dr: Alka Hankins MD Copies to: [...] Swenson Jr., D.O.10/09/2022 4:47 PM Dictation Location: [place] [address] Transcribed By: [facility] 10/09/221646 Dictated By: Gavin Swesnon Jr, DO 10/09/221645 Signed By: 10/09/221646 [facility] XR SHOULDER LT 2V or >on XR [...] ANN MARIE TINEO Date: 2022-07-26 16:54 Normal [facility] XR CHEST 2 Von 06-19-2022 XR CHEST [...] WEI REED Date: 2022-06-19 18:36 Normal [facility] BNPon 06-10-2022 Natriuretic peptide B (Bld) [Mass/Vol] 683.0 pg/mL Normal <=900.0 [facility] Comment on above: Performed By: #### L IPID, TSH, CMP #### [facility] [address] [place] [address] Dr. Dylan Santana CBC AUTO DIFFon 06-10-2022 BASO # 0.0 103/ul Normal 0.0-0.1 [facility] Comment on above: Performed By: #### C BC #### [facility] [address] [place] [address] Dr. Dylan Santana Basophils/100 WBC (Bld) 0.6 % Normal 0.2-2.0 [facility] Comment on above: Performed By: #### C BC #### [facility] [address] [place] [address] Dr. Dylan Santana EO # 0.3 103/ul Normal 0.0-0.7 [facility] Comment on above: Performed By: #### C BC #### [facility] [address] [place] [address] Dr. Dylan Santana Eosinophils/100 WBC (Bld) 4.9 % Normal 0.9-7.0 [facility] Comment on above: Performed By: #### C BC #### [facility] [address] [place] [address] Dr. Dylan Santana Erythrocyte distribution width (RBC) [Ratio] 12.2 % Normal 11.0-15.0 [facility] Comment on above: Performed By: #### C BC #### [facility] [address] [place] [address] Dr. Dylan Santana Hematocrit (Bld) [Volume fraction] 36.2 % Normal 36.0-48.0 [facility] Comment on above: Performed By: #### C BC #### [facility] [address] [place] [address] Dr. Dylan Santana Hemoglobin (Bld) [Mass/Vol] 11.9 g/dL Critically low 12.0-16.0 [facility] Comment on above: Performed By: #### C BC #### [facility] [address] [place] [address] Dr. Dylan Santana IG # 0.02 10e3/ul Normal 0.00-0.03 [facility] Comment on above: Performed By: #### C BC #### [facility] [address] [place] [address] Dr. Dylan Santana IG % 0.4 % Normal 0.0-0.5 [facility] Comment on above: Performed By: #### C BC #### [facility] [address] [place] [address] Dr. Dylan Santana LYMPH # 1.8 103/ul Normal 1.2-3.8 [facility] Comment on above: Performed By: #### C BC #### [facility] [address] [place] [address] Dr. Dylan Santana Lymphocytes/100 WBC (Bld) 34.8 % Normal 20.5-60.0 [facility] Comment on above: Performed By: #### C BC #### [facility] [address] [place] [address] Dr. Dylan Santana MANUAL DIFF REQ NO Normal [facility] Comment on above: Performed By: #### C BC #### [facility] [address] [place] [address] Dr. Dylan Santana MCH (RBC) [Entitic mass] 30.2 pg Normal 26.7-34.0 [facility] Comment on above: Performed By: #### C BC #### [facility] [address] [place] [address] Dr. Dylan Santana MCHC (RBC) [Mass/Vol] 32.9 g/dL Normal 29.9-35.2 [facility] Comment on above: Performed By: #### C BC #### [facility] [address] [place] [address] Dr. Dylan Santana MCV (RBC) [Entitic vol] 91.9 fL Normal 81.0-99.0 [facility] Comment on above: Performed By: #### C BC #### [facility] [address] [address] [address] Dylan Santana MONO # 0.6 103/ul Normal 0.3-0.8 [facility] Comment on above: Performed By: #### C BC #### [facility] [address] [address] [address] Dylan Santana Monocytes/100 WBC (Bld) 12.5 % Critically high 1.7-12.0 [facility] Comment on above: Performed By: #### C BC #### [facility] [address] [place] [address] Dr. Dylan Santana NEUT # 2.4 103/ul Normal 1.4-6.5 [facility] Comment on above: Performed By: #### C BC #### [facility] [address] [place] [address] Dr. Dylan Santana Neutrophils/100 WBC (Bld) 46.8 % Normal 43.0-75.0 [facility] Comment on above: Performed By: #### C BC #### [facility] [address] [place] [address] Dr. Dylan Santana Platelet mean volume (Bld) [Entitic vol] 10.1 fL Normal 9.5-13.5 [facility] Comment on above: Performed By: #### C BC #### [facility] [address] [place] [address] Dr. Dylan Santana PLT 159 103/ul Normal 150-450 [facility] Comment on above: Performed By: #### C BC #### [facility] [address] [place] [address] Dr. Dylan Santana RBC 3.94 106/ul Critically low 4.20-5.40 [facility] Comment on above: Performed By: #### C BC #### [facility] [address] [place] [address] Dr. Dylan Santana WBC 5.1 103/ul Normal 4.0-11.0 [facility] Comment on above: Performed By: #### C BC #### [facility] [address] [place] [address] Dr. Dylan Santana BASO # 0.0 103/ul Normal 0.0-0.1 [facility] Comment on above: Performed By: #### C BC #### [facility] [address] [place] [address] Dr. Dylan Santana Basophils/100 WBC (Bld) 0.6 % Normal 0.2-2.0 [facility] Comment on above: Performed By: #### C BC #### [facility] [address] [place] [address] Dr. Dylan Santana EO # 0.3 103/ul Normal 0.0-0.7 [facility] Comment on above: Performed By: #### C BC #### [facility] [address] [place] [address] Dr. Dylan Santana Eosinophils/100 WBC (Bld) 5.0 % Normal 0.9-7.0 [facility] Comment on above: Performed By: #### C BC #### [facility] [address] [place] [address] Dr. Dylan Santana Erythrocyte distribution width (RBC) [Ratio] 12.1 % Normal 11.0-15.0 [facility] Comment on above: Performed By: #### C BC #### [facility] [address] [place] [address] Dr. Dylan Santana Hematocrit (Bld) [Volume fraction] 39.3 % Normal 36.0-48.0 [facility] Comment on above: Performed By: #### C BC #### [facility] [address] [place] [address] Dr. Dylan Santana Hemoglobin (Bld) [Mass/Vol] 12.9 g/dL Normal 12.0-16.0 [facility] Comment on above: Performed By: #### C BC #### [facility] [address] [place] [address] Dr. Dylan Santana IG # 0.02 10e3/ul Normal 0.00-0.03 [facility] Comment on above: Performed By: #### C BC #### [facility] [address] [place] [address] Dr. Dylan Santana IG % 0.4 % Normal 0.0-0.5 [facility] Comment on above: Performed By: #### C BC #### [facility] [address] [place] [address] Dr. Dylan Santana LYMPH # 1.4 103/ul Normal 1.2-3.8 [facility] Comment on above: Performed By: #### C BC #### [facility] [address] [place] [address] Dr. Dylan Santana Lymphocytes/100 WBC (Bld) 26.9 % Normal 20.5-60.0 [facility] Comment on above: Performed By: #### C BC #### [facility] [address] [place] [address] Dr. Dylan Santana MANUAL DIFF REQ NO Normal [facility] Comment on above: Performed By: #### C BC #### [facility] [address] [place] [address] Dr. Dylan Santana MCH (RBC) [Entitic mass] 30.2 pg Normal 26.7-34.0 [facility] Comment on above: Performed By: #### C BC #### [facility] [address] [place] [address] Dr. Dylan Santana MCHC (RBC) [Mass/Vol] 32.8 g/dL Normal 29.9-35.2 [facility] Comment on above: Performed By: #### C BC #### [facility] [address] [place] [address] Dr. Dylan Santana MCV (RBC) [Entitic vol] 92.0 fL Normal 81.0-99.0 [facility] Comment on above: Performed By: #### C BC #### [facility] [address] [place] [address] Dr. Dylan Santana MONO # 0.5 103/ul Normal 0.3-0.8 [facility] Comment on above: Performed By: #### C BC #### [facility] [address] [place] [address] Dr. Dylan Santana Monocytes/100 WBC (Bld) 10.1 % Normal 1.7-12.0 [facility] Comment on above: Performed By: #### C BC #### [facility] [address] [place] [address] Dr. Dylan Santana NEUT # 3.0 103/ul Normal 1.4-6.5 [facility] Comment on above: Performed By: #### C BC #### [facility] [address] [place] [address] Dr. Dylan Santana Neutrophils/100 WBC (Bld) 57.0 % Normal 43.0-75.0 [facility] Comment on above: Performed By: #### C BC #### [facility] [address] [place] [address] Dr. Dylan Santana Platelet mean volume (Bld) [Entitic vol] 10.3 fL Normal 9.5-13.5 [facility] Comment on above: Performed By: #### C BC #### [facility] [address] [place] [address] Dr. Dylan Santana PLT 182 103/ul Normal 150-450 [facility] Comment on above: Performed By: #### C BC #### [facility] [address] [place] [address] Dr. Dylan Santana RBC 4.27 106/ul Normal 4.20-5.40 [facility] Comment on above: Performed By: #### C BC #### [facility] [address] [place] [address] Dr. Dylan Santana WBC 5.2 103/ul Normal 4.0-11.0 [facility] Comment on above: Performed By: #### C BC #### [facility] [address] [place] [address] HEAD WO CONon [...] YONIS PACHECO Date: 2022-06-10 04:35 Normal [facility] SARS-CoV-2 (COVID-19) RNA LUIS+probe Ql (Unsp spec) Not detected Normal NOT DETECTED [facility] Comment on above: Result Comment: When diagnostic [...] for this test is supported by the [place] of [employer]'s declaration that [...] By: #### L IPID, TSH, CMP #### [facility] [address] [place] [address] Dr. Dylan Santana POINT OF CARE GLUCOSEon 05-24 Glucose [Mass/Vol] 169 mg/dL Critically high 74-106 [facility] Comment on above: Performed By: #### C BC #### [facility] [address] [address] [address] Dylan Santana PROF 14(COMP METB)on 06-10- 022 Albumin [Mass/Vol] 3.5 g/dL Normal 3.4-5.0 [facility] Comment on above: Performed By: #### C MP, HSTROPN #### [facility] [address] [address] [address] Dylan Santana Albumin/Globulin [Mass ratio] 0.9 {ratio} Normal [facility] Comment on above: Performed By: #### C MP, HSTROPN #### [facility] [address] [place] [address] Dr. Dylan Santana ALP [Catalytic activity/Vol] 197 U/L Critically high 46-116 [facility] Comment on above: Performed By: #### C MP, HSTROPN #### [facility] [address] [address] [address] Dylan Santana ALT [Catalytic activity/Vol] 89 U/L Critically high 14-59 [facility] Comment on above: Performed By: #### C MP, HSTROPN #### [facility] [address] [address] [address] Dylan Santana Anion gap [Moles/Vol] 10.1 mmol/L Normal [facility] Comment on above: Performed By: #### C MP, HSTROPN #### [facility] [address] [address] [address] Dylan Santana AST [Catalytic activity/Vol] 50 U/L Critically high 15-37 [facility] Comment on above: Performed By: #### C MP, HSTROPN #### [facility] [address] [address] [address] Dylan Santana Bilirubin [Mass/Vol] 0.4 mg/dL Normal 0.2-1.0 [facility] Comment on above: Performed By: #### C MP, HSTROPN #### [facility] [address] [address] [address] Dylan Santana Calcium [Mass/Vol] 9.2 mg/dL Normal 8.5-10.1 [facility] Comment on above: Performed By: #### C MP, HSTROPN #### [facility] [address] [address] [address] Dylan Santana Chloride [Moles/Vol] 101 mmol/L Normal 98-107 [facility] Comment on above: Performed By: #### C MP, HSTROPN #### [facility] [address] [address] [address] Dylan Santana CO2 [Moles/Vol] 28.1 mmol/L Normal 21.0-32.0 [facility] Comment on above: Performed By: #### C MP, HSTROPN #### [facility] [address] [place] [address] Dr. Dylan Santana Creatinine [Mass/Vol] 1.29 mg/dL Critically high 0.55-1.02 [facility] Comment on above: Performed By: #### C MP, HSTROPN #### [facility] [address] [place] [address] Dr. Dylan Santana EGFR-AF [place]UR[place] AND [place] 49 mL/min/1.73m2 Critically low >=60 [facility] Comment on above: Performed By: #### C MP, HSTROPN #### [facility] [address] [address] [address] Dylan Santana EGFR-NON AF TURKS AND [place]ER 41 mL/min/1.73m2 Critically low >=60 [facility] Comment on above: Performed By: #### C MP, HSTROPN #### [facility] [address] [place] [address] Dr. Dylan Santana Globulin (S) [Mass/Vol] 3.9 g/dL Normal [facility] Comment on above: Performed By: #### C MP, HSTROPN #### [facility] [address] [place] [address] Dr. Dylan Santana Glucose [Mass/Vol] 231 mg/dL Critically high 74-106 [facility] Comment on above: Performed By: #### C MP, HSTROPN #### [facility] [address] [place] [address] Dr. Dylan Santana Potassium [Moles/Vol] 4.2 mmol/L Normal 3.5-5.1 [facility] Comment on above: Performed By: #### C MP, HSTROPN #### [facility] [address] [place] [address] Dr. Dylan Santana Protein [Mass/Vol] 7.4 g/dL Normal 6.4-8.2 [facility] Comment on above: Performed By: #### C MP, HSTROPN #### [facility] [address] [place] [address] Dr. Dylan Santana Sodium [Moles/Vol] 135 mmol/L Critically low 136-145 [facility] Comment on above: Performed By: #### C MP, HSTROPN #### [facility] [address] [place] [address] Dr. Dylan Santana Urea nitrogen [Mass/Vol] 21.0 mg/dL Critically high 7.0-18.0 [facility] Comment on above: Performed By: #### C MP, HSTROPN #### [facility] [address] [place] [address] Dr. Dylan Santana Urea nitrogen/Creatinine [Mass ratio] 16.3 mg/mg Normal [facility] Comment on above: Performed By: #### C MP, HSTROPN #### [facility] [address] [place] [address] Dr. Dylan Santana PROF CHEM 8 (BAS METB)on Anion gap [Moles/Vol] 9.2 mmol/L Normal [facility] Comment on above: Performed By: #### L IPID, TSH, CMP #### [facility] [address] [place] [address] Dr. Dylan Santana Calcium [Mass/Vol] 8.9 mg/dL Normal 8.5-10.1 [facility] Comment on above: Performed By: #### L IPID, TSH, CMP #### [facility] [address] [place] [address] Dr. Dylan Santana Chloride [Moles/Vol] 104 mmol/L Normal 98-107 [facility] Comment on above: Performed By: #### L IPID, TSH, CMP #### [facility] [address] [place] [address] Dr. Dylan Santana CO2 [Moles/Vol] 27.8 mmol/L Normal 21.0-32.0 [facility] Comment on above: Performed By: #### L IPID, TSH, CMP #### [facility] [address] [place] [address] Dr. Dylan Santana Creatinine [Mass/Vol] 1.14 mg/dL Critically high 0.55-1.02 [facility] Comment on above: Performed By: #### L IPID, TSH, CMP #### [facility] [address] [place] [address] Dr. Dylan Santana EGFR-AF TUR[place] AND [place] 57 mL/min/1.73m2 Critically low >=60 [facility] Comment on above: Performed By: #### L IPID, TSH, CMP #### [facility] [address] [place] [address] Dr. Dylan Santana EGFR-NON AF TURKS AND [place] 47 mL/min/1.73m2 Critically low >=60 [facility] Comment on above: Performed By: #### L IPID, TSH, CMP #### [facility] [address] [place] [address] Dr. Dylan Santana Glucose [Mass/Vol] 176 mg/dL Critically high 74-106 [facility] Comment on above: Performed By: #### L IPID, TSH, CMP #### [facility] [address] [place] [address] Dr. Dylan Santana Potassium [Moles/Vol] 4.0 mmol/L Normal 3.5-5.1 [facility] Comment on above: Performed By: #### L IPID, TSH, CMP #### [facility] [address] [place] [address] Dr. Dylan Santana Sodium [Moles/Vol] 137 mmol/L Normal 136-145 [facility] Comment on above: Performed By: #### L IPID, TSH, CMP #### [facility] [address] [place] [address] Dr. Dylan Santana Urea nitrogen [Mass/Vol] 21.0 mg/dL Critically high 7.0-18.0 [facility] Comment on above: Performed By: #### L IPID, TSH, CMP #### [facility] [address] [place] [address] Dr. Dylan Santana Urea nitrogen/Creatinine [Mass ratio] 18.4 mg/mg Normal [facility] Comment on above: Performed By: #### L IPID, TSH, CMP #### [facility] [address] [place] [address] Dr. Dylan Santana RESPIRATORY PANEL PLUSon Adenovirus Not detected Normal NOT DETECTED [facility] Comment on above: Performed By: #### C BC #### [facility] [address] [place] [address] Dr. Dylan Pastor. Parapertusis Not detected Normal NOT DETECTED [facility] Comment on above: Performed By: #### C BC #### [facility] [address] [place] [address] Dr. Dylan Mccurdy Pertussis Not detected Normal NOT DETECTED [facility] Comment on above: Performed By: #### C BC #### [facility] [address] [place] [address] Dr. Dylan Santana Chlamydia Pneumoniae Not detected Normal NOT DETECTED [facility] Comment on above: Performed By: #### C BC #### [facility] [address] [place] [address] Dr. Dylan Santana Coronavirus 229E Not detected Normal NOT DETECTED [facility] Comment on above: Performed By: #### C BC #### [facility] [address] [place] [address] Dr. Dylan Santana Coronavirus HKU1 Not detected Normal NOT DETECTED [facility] Comment on above: Performed By: #### C BC #### [facility] [address] [address] [address] Dylan Santana Coronavirus NL63 Not detected Normal NOT DETECTED [facility] Comment on above: Performed By: #### C BC #### [facility] [address] [address] [address] Dylan Santana Coronavirus OC43 Not detected Normal NOT DETECTED [facility] Comment on above: Performed By: #### C BC #### [facility] [address] [address] [address] Dylan Santana Influenza A H1 2009 Not detected Normal NOT DETECTED [facility] Comment on above: Performed By: #### C BC #### [facility] [address] [address] [address] Dylan Santana Influenza A H3 Not detected Normal NOT DETECTED [facility] Comment on above: Performed By: #### C BC #### [facility] [address] [address] [address] Dylan Santana Influenza B Not detected Normal NOT DETECTED [facility] Comment on above: Performed By: #### C BC #### [facility] [address] [place] [address] Dr. Dylan Santana Metapneumovirus Not detected Normal NOT DETECTED [facility] Comment on above: Performed By: #### C BC #### [facility] [address] [place] [address] Dr. Dylan Santana Mycoplas. Pneumoniae Not detected Normal NOT DETECTED [facility] Comment on above: Performed By: #### C BC #### [facility] [address] [address] [address] Dylan Santana Parainfluenza 1 Not detected Normal NOT DETECTED [facility] Comment on above: Performed By: #### C BC #### [facility] [address] [address] [address] Dylan Santana Parainfluenza 2 Not detected Normal NOT DETECTED [facility] Comment on above: Performed By: #### C BC #### [facility] [address] [place] [address] Dr. Dylan Santana Parainfluenza 3 Not detected Normal NOT DETECTED [facility] Comment on above: Performed By: #### C BC #### [facility] [address] [place] [address] Dr. Dylan Santana Parainfluenza 4 Not detected Normal NOT DETECTED [facility] Comment on above: Performed By: #### C BC #### [facility] [address] [place] [address] Dr. Dylan Santana Rhino/Enterovirus Not detected Normal NOT DETECTED [facility] Comment on above: Performed By: #### C BC #### [facility] [address] [place] [address] Dr. Dylan Santana RP2 Header 1 RESPIRATORY PANEL: VIRUSES Normal [facility] Comment on above: Performed By: #### C BC #### [facility] [address] [place] [address] Dr. Dylan Santana RP2 Header 2 RESPIRATORY PANEL: BACTERIA Normal [facility] Comment on above: Performed By: #### C BC #### [facility] [address] [place] [address] Dr. Dylan Santana RSV Detected Critically abnormal NOT DETECTED [facility] Comment on above: Performed By: #### C BC #### [facility] [address] [place] [address] Dr. Dylan Santana SARS-CoV-2 (COVID-19) RNA LUIS+probe Ql (Unsp spec) Not detected Normal NOT DETECTED [facility] Comment on above: Performed By: #### C BC #### [facility] [address] [place] [address] Dr. Dylan Santana TROPONIN, HIGH SENSITIVITYon 06-10-2022 HSTROP 18.5 pg/mL Normal 4.0-51.3 [facility] Comment on above: Result Comment: CUT- OFF POINTS HAVE BEEN ESTABLISHED BASED ON THE FOURTH UNIVERSAL DEFINITIONS OF MYOCARDIAL INFARCTION. THE UPPER REFERENCE LIMIT (URL) OF TROPONIN, DEFINED THE 99TH PERCENTILE OF cTnI DISTRIBUTION IN A REFERENCE POPULATION, HAS BEEN CONFIRMED THE DECISION THRESHOLD FOR OK DIAGNOSIS. Performed By: #### L IPID, TSH, CMP #### [facility] [address], [place] [address] Dr. Dylan Santana HSTROP 18.8 pg/mL Normal 4.0-51.3 [facility] Comment on above: Result Comment: CUT- OFF POINTS HAVE BEEN ESTABLISHED BASED ON THE FOURTH UNIVERSAL DEFINITIONS OF MYOCARDIAL INFARCTION. THE UPPER REFERENCE LIMIT (URL) OF TROPONIN, DEFINED THE 99TH PERCENTILE OF cTnI DISTRIBUTION IN A REFERENCE POPULATION, HAS BEEN CONFIRMED THE DECISION THRESHOLD FOR OK DIAGNOSIS. Performed By: #### C MP, HSTROPN #### [facility] [address], [place] [address] Dr. Dylan Santana XR CHEST 1 Von [...] YONIS PACHECO Date: 2022-06-10 02:13 Normal [facility] ECHOCARDIO M/2D COMPLETEon 1 07-08-2021 ECHOCARDIO M/2D COMPLETE Patient: LIBRA NOONAN Exam Date: 05/08/2022 : 1950 Gender:F Ordering : [facility] Admission #: [id number] Family : Order #: [id number] CLICK HERE TO VIEW EXAM ECHOCARDIOGRAM REPORT [...] Capellan M.D. on 05/09/2022 at 20:11 Normal [facility] NM STRESS/REST MULTIon 03-08 NM STRESS/REST MULTI Patient: LIBRA NOONAN Exam Date: 03/08/2022 : 1950 Gender:F Ordering : DR GIANA BELL M.D. Admission #: [id number] Family : Order #: [id number] CLICK HERE TO VIEW EXAM RADIOLOGY REPORT [...] DEFECT: LOCATION: Basal anterior. Mid-anterior. Apical anterior. Mathews. SIZE: Medium (3-4 segments). SEVERITY: Moderate. TYPE: [...] MD on 03/09/2022 at 11:54 Normal [facility] CBC AUTO DIFFon 01-24-2022 BASO # 0.0 103/ul Normal 0.0-0.1 [facility] Comment on above: Performed By: #### C BC #### [facility] [address] [place] [address] Dr. Dylan Santana Basophils/100 WBC (Bld) 0.5 % Normal 0.2-2.0 [facility] Comment on above: Performed By: #### C BC #### [facility] [address] [place] [address] Dr. Dylan Santana EO # 0.2 103/ul Normal 0.0-0.7 [facility] Comment on above: Performed By: #### C BC #### [facility] [address] [place] [address] Dr. Dylan Santana Eosinophils/100 WBC (Bld) 2.8 % Normal 0.9-7.0 [facility] Comment on above: Performed By: #### C BC #### [facility] [address] [place] [address] Dr. Dylan Santana Erythrocyte distribution width (RBC) [Ratio] 13.0 % Normal 11.0-15.0 [facility] Comment on above: Performed By: #### C BC #### [facility] [address] [place] [address] Dr. Dylan Santana Hematocrit (Bld) [Volume fraction] 40.8 % Normal 36.0-48.0 [facility] Comment on above: Performed By: #### C BC #### [facility] [address] [place] [address] Dr. Dylan Santana Hemoglobin (Bld) [Mass/Vol] 13.0 g/dL Normal 12.0-16.0 [facility] Comment on above: Performed By: #### C BC #### [facility] [address] [address] [address] Dylan Santana IG # 0.04 10e3/ul Critically high 0.00-0.03 [facility] Comment on above: Performed By: #### C BC #### [facility] [address] [address] [address] Dylan Santana IG % 0.5 % Normal 0.0-0.5 [facility] Comment on above: Performed By: #### C BC #### [facility] [address] [place] [address] Dr. Dylan Santana LYMPH # 2.7 103/ul Normal 1.2-3.8 [facility] Comment on above: Performed By: #### C BC #### [facility] [address] [place] [address] Dr. Dylan Santana Lymphocytes/100 WBC (Bld) 34.3 % Normal 20.5-60.0 [facility] Comment on above: Performed By: #### C BC #### [facility] [address] [place] [address] Dr. Dylan Santana MANUAL DIFF REQ NO Normal [facility] Comment on above: Performed By: #### C BC #### [facility] [address] [place] [address] Dr. Dylan Santana MCH (RBC) [Entitic mass] 30.0 pg Normal 26.7-34.0 [facility] Comment on above: Performed By: #### C BC #### [facility] [address] [place] [address] Dr. Dylan Santana MCHC (RBC) [Mass/Vol] 31.9 g/dL Normal 29.9-35.2 [facility] Comment on above: Performed By: #### C BC #### [facility] [address] [place] [address] Dr. Dylan Santana MCV (RBC) [Entitic vol] 94.0 fL Normal 81.0-99.0 [facility] Comment on above: Performed By: #### C BC #### [facility] [address] [place] [address] Dr. Dylan Santana MONO # 0.4 103/ul Normal 0.3-0.8 [facility] Comment on above: Performed By: #### C BC #### [facility] [address] [place] [address] Dr. Dylan Santana Monocytes/100 WBC (Bld) 5.1 % Normal 1.7-12.0 [facility] Comment on above: Performed By: #### C BC #### [facility] [address] [place] [address] Dr. Dylan Santana NEUT # 4.4 103/ul Normal 1.4-6.5 [facility] Comment on above: Performed By: #### C BC #### [facility] [address] [place] [address] Dr. Dylan Santana Neutrophils/100 WBC (Bld) 56.8 % Normal 43.0-75.0 [facility] Comment on above: Performed By: #### C BC #### [facility] [address] [place] [address] Dr. Dylan Santana Platelet mean volume (Bld) [Entitic vol] 10.7 fL Normal 9.5-13.5 [facility] Comment on above: Performed By: #### C BC #### [facility] [address] [place] [address] Dr. Dylan Santana PLT 212 103/ul Normal 150-450 [facility] Comment on above: Performed By: #### C BC #### [facility] [address] [place] [address] Dr. Dylan Santana RBC 4.34 106/ul Normal 4.20-5.40 [facility] Comment on above: Performed By: #### C BC #### [facility] [address] [place] [address] Dr. Dylan Santana WBC 7.8 103/ul Normal 4.0-11.0 [facility] Comment on above: Performed By: #### C BC #### [facility] [address] [place] [address] Dr. Dylan Santana FREE T4on 01-24-2022 Free T4 [Mass/Vol] 1.02 ng/dL Normal 0.76-1.46 [facility] Comment on above: Performed By: #### F T4 #### [facility] [address] [address] [address] Dylan Santana GLYCOHEMOGLOBIN A1Con 2021 ADA RECOMMENDATION SEE BELOW Normal [facility] Comment on above: Result Comment: ADA RECOMMENDED LIMIT 4.0 - 6.0 ADA THERAPEUTIC TARGET < 7.0 ACTION SUGGESTED > 7.0 Performed By: #### C BC #### [facility] [address] [address] [address] Dylan Santana Glucose [Mass/Vol] 189 mg/dL Normal [facility] Comment on above: Performed By: #### C BC #### [facility] [address] [place] [address] Dr. Dylan Santana HbA1c (Bld) [Mass fraction] 8.2 % Critically high 4.5-6.2 [facility] Comment on above: Performed By: #### C BC #### [facility] [address] [address] [address] Dylan Santana LIPID PROFILEon 01-24-2022 CHOL-HDL RATIO NORM SEE BELOW Normal [facility] Comment on above: Result Comment: 3.3 - 4.4 LOW RISK 4.4 - 7.1 AVERAGE RISK 7.1 - 11.0 MODERATE RISK >11.0 HIGH RISK Performed By: #### L IPID, TSH, CMP #### [facility] [address] [address] [address] Dylan Santana Cholesterol [Mass/Vol] 235 mg/dL Critically high <=200 [facility] Comment on above: Performed By: #### L IPID, TSH, CMP #### [facility] [address] [place] [address] Dr. Dylan Santana Cholesterol in HDL [Mass/Vol] 64 mg/dL Critically high 40-60 [facility] Comment on above: Performed By: #### L IPID, TSH, CMP #### [facility] [address] [address] [address] Dylan Santana Cholesterol in LDL [Mass/Vol] 139.8 mg/dL Normal [facility] Comment on above: Performed By: #### L IPID, TSH, CMP #### [facility] [address] [address] [address] Dylan Santana Cholesterol.total/C holesterol in HDL [Mass ratio] 3.7 {ratio} Normal [facility] Comment on above: Performed By: #### L IPID, TSH, CMP #### [facility] [address] [address] [address] Dylan Santana HDL NORMAL > or = 60 mg/dl - LO W CARDIOVASCULAR RISK <40 mg/dl - HIGH CARDIOVASCULAR RISK Normal [facility] Comment on above: Performed By: #### L IPID, TSH, CMP #### [facility] [address] [address] [address] Dylan Santana LDL CALC NORMAL SEE BELOW Normal [facility] Comment on above: Result Comment: <100 mg/dl OPTIMAL 100 - 129 mg/dl NEAR OR ABOVE OPTIMAL 130 - 159 mg/dl BORDERLINE HIGH 160 - 189 mg/dl HIGH >190 mg/dl VERY HIGH Performed By: #### L IPID, TSH, CMP #### [facility] [address] [place] [address] Dr. Dylan Santana Triglyceride [Mass/Vol] 156 mg/dL Critically high <=150 [facility] Comment on above: Performed By: #### L IPID, TSH, CMP #### [facility] [address] [address] [address] Dylan Santana VLDL CALC 31.2 mg/dL Normal [facility] Comment on above: Performed By: #### L IPID, TSH, CMP #### [facility] [address] [address] [address] Dylan Santana PROF 14(COMP METB)on 022 Albumin [Mass/Vol] 3.3 g/dL Critically low 3.4-5.0 [facility] e [facility] Comment on above: Performed By: #### L IPID, TSH, CMP #### [facility] [address] [place] [address] Dr. Dylan Santana Albumin/Globulin [Mass ratio] 0.9 {ratio} Normal [facility] Comment on above: Performed By: #### L IPID, TSH, CMP #### [facility] [address] [place] [address] Dr. Dylan Santana ALP [Catalytic activity/Vol] 109 U/L Normal 46-116 [facility] Comment on above: Performed By: #### L IPID, TSH, CMP #### [facility] [address] [place] [address] Dr. Dylan Santana ALT [Catalytic activity/Vol] 25 U/L Normal 14-59 [facility] Comment on above: Performed By: #### L IPID, TSH, CMP #### [facility] [address] [place] [address] Dr. Dylan Santana Anion gap [Moles/Vol] 14.7 mmol/L Normal [facility] Comment on above: Performed By: #### L IPID, TSH, CMP #### [facility] [address] [place] [address] Dr. Dylan Santana AST [Catalytic activity/Vol] 12 U/L Critically low 15-37 [facility] Comment on above: Performed By: #### L IPID, TSH, CMP #### [facility] [address] [place] [address] Dr. Dylan Santana Bilirubin [Mass/Vol] 0.6 mg/dL Normal 0.2-1.0 [facility] Comment on above: Performed By: #### L IPID, TSH, CMP #### [facility] [address] [place] [address] Dr. Dylan Santana Calcium [Mass/Vol] 8.8 mg/dL Normal 8.5-10.1 [facility] Comment on above: Performed By: #### L IPID, TSH, CMP #### [facility] [address] [place] [address] Dr. Dylan Santana Chloride [Moles/Vol] 102 mmol/L Normal 98-107 [facility] Comment on above: Performed By: #### L IPID, TSH, CMP #### [facility] [address] [address] [address] Dylan Santana CO2 [Moles/Vol] 27.5 mmol/L Normal 21.0-32.0 [facility] Comment on above: Performed By: #### L IPID, TSH, CMP #### [facility] [address] [address] [address] Dylan Santana Creatinine [Mass/Vol] 1.14 mg/dL Critically high 0.55-1.02 [facility] Comment on above: Performed By: #### L IPID, TSH, CMP #### [facility] [address] [address] [address] Dylan Santana EGFR-AF [place] 57 mL/min/1.73m2 Critically low >=60 [facility] Comment on above: Performed By: #### L IPID, TSH, CMP #### [facility] [address] [address] [address] Dylan Santana EGFR-NON AF [place] 47 mL/min/1.73m2 Critically low >=60 [facility] Comment on above: Performed By: #### L IPID, TSH, CMP #### [facility] [address] [address] [address] Dylan Santana Globulin (S) [Mass/Vol] 3.7 g/dL Normal [facility] Comment on above: Performed By: #### L IPID, TSH, CMP #### [facility] [address] [address] [address] Dylan Santana Glucose [Mass/Vol] 249 mg/dL Critically high 74-106 [facility] Comment on above: Performed By: #### L IPID, TSH, CMP #### [facility] [address] [address] [address] Dylan Santana Potassium [Moles/Vol] 4.2 mmol/L Normal 3.5-5.1 [facility] Comment on above: Performed By: #### L IPID, TSH, CMP #### [facility] [address] [address] [address] Dylan Santana Protein [Mass/Vol] 7.0 g/dL Normal 6.4-8.2 [facility] Comment on above: Performed By: #### L IPID, TSH, CMP #### [facility] [address] [place] [address] Dr. Dylan Santana Sodium [Moles/Vol] 140 mmol/L Normal 136-145 [facility] Comment on above: Performed By: #### L IPID, TSH, CMP #### [facility] [address] [place] [address] Dr. Dylan Santana Urea nitrogen [Mass/Vol] 20.0 mg/dL Critically high 7.0-18.0 [facility] Comment on above: Performed By: #### L IPID, TSH, CMP #### [facility] [address] [place] [address] Dr. Dylan Santana Urea nitrogen/Creatinine [Mass ratio] 17.5 mg/mg Normal [facility] Comment on above: Performed By: #### L IPID, TSH, CMP #### [facility] [address] [place] [address] Dr. Dylan Santana TSHon 01-24-2022 TSH 3.673 uIU/mL Normal 0.358-3.740 [facility] Comment on above: Performed By: #### L IPID, TSH, CMP #### [facility] [address] [place] [address] Dr. Dylan Santana COVID Quick Testingon 2021 Result Negative [facility] Other [facility] 09-22-2021 Lab Reports [id number] Normal [facility] Vital Signs Date Time Vital Sign Value Performing Clinician Facility 06-05-2023 11:30-0500 Body height 160.02 cm Giana Bell Other [facility] Other 06-05-2023 11:30-0500 Body mass index (BMI) [Ratio] 55.62 kg/m2 Giana Bell Other [facility] Other 06-05-2023 11:30-0500 Body weight 142.43 kg Giana Bell Other [facility] Other 06-05-2023 11:30-0500 Diastolic blood pressure 78 mm[Hg] Giana Bell Other [facility] Other 06-05-2023 11:30-0500 SaO2% (BldA) [Mass fraction] 98 % Giana Bell Other [facility] Other 06-05-2023 11:30-0500 Systolic blood pressure 132 mm[Hg] Giana Bell Other [place] [employer] Other 05-28-2023 11:00-0500 Diastolic blood pressure 97 mm[Hg] MD Giana Bell Work Phone: [facility] 05-28-2023 11:00-0500 Heart rate 79 /min MD Giana Bell Work Phone: [facility] 05-28-2023 11:00-0500 Respiratory rate 16 /min MD Giana Bell Work Phone: [facility] 05-28-2023 11:00-0500 SaO2% (BldA) [Mass fraction] 98 % MD Giana Bell Work Phone: [facility] 05-28-2023 11:00-0500 Systolic blood pressure 173 mm[Hg] MD Giana Bell Work Phone: [facility] 05-28-2023 10:15-0500 Inhaled oxygen flow rate 3 L/min MD Giana Bell Work Phone: [facility] 05-28-2023 10:04-0500 Body height 157.48 cm MD Giana Bell Work Phone: [facility] 05-28-2023 10:04-0500 Body weight 141.52 kg MD Giana Bell Work Phone: [facility] 05-07-2023 10:15-0500 Diastolic blood pressure 87 mm[Hg] MD Giana Bell Work Phone: [facility] 05-07-2023 10:15-0500 Heart rate 74 /min MD Giana Bell Work Phone: [facility] 05-07-2023 10:15-0500 Respiratory rate 16 /min MD Giana Bell Work Phone: [facility] 05-07-2023 10:15-0500 SaO2% (BldA) [Mass fraction] 95 % MD Giana Bell Work Phone: [facility] 05-07-2023 10:15-0500 Systolic blood pressure 173 mm[Hg] MD Giana Bell Work Phone: [facility] 05-07-2023 09:30-0500 Inhaled oxygen flow rate 3 L/min MD Giana Bell Work Phone: [facility] 05-07-2023 08:40-0500 Body height 157.48 cm MD Giana Bell Work Phone: [facility] 05-07-2023 08:40-0500 Body weight 141.52 kg MD Giana Bell Work Phone: [facility] 03-06-2023 11:30-0400 Body height 160.02 cm Giana Bell Other [facility] Other 03-06-2023 11:30-0400 Body mass index (BMI) [Ratio] 55.26 kg/m2 Giana Bell Other [facility] [facility] Other 03-06-2023 11:30-0400 Body weight 141.52 kg Giana Bell Other [employer] [facility] Other 03-06-2023 11:30-0400 Diastolic blood pressure 72 mm[Hg] Giana Bell Other [facility] Other 03-06-2023 11:30-0400 Respiratory rate 12 /min Giana Bell Other [facility] Other 03-06-2023 11:30-0400 Systolic blood pressure 118 mm[Hg] Giana Bell Other [facility] Other 02-12-2023 11:10-0400 Diastolic blood pressure 80 mm[Hg] MD Giana Bell Work Phone: [facility] 02-12-2023 11:10-0400 Heart rate 80 /min MD Giana Bell Work Phone: [facility] 02-12-2023 11:10-0400 Respiratory rate 18 /min MD Giana Bell Work Phone: [facility] 02-12-2023 11:10-0400 SaO2% (BldA) [Mass fraction] 96 % MD Giana Bell Work Phone: [facility] 02-12-2023 11:10-0400 Systolic blood pressure 145 mm[Hg] MD Giana Bell Work Phone: [facility] 02-12-2023 10:28-0400 Inhaled oxygen flow rate 3 L/min MD Giana Bell Work Phone: [facility] 02-12-2023 09:59-0400 Body height 157.48 cm MD Giana Bell Work Phone: [facility] 02-12-2023 09:59-0400 Body weight 92.07 kg MD Giana Bell Work Phone: [facility] 12-05-2022 11:30-0400 Body height 160.02 cm Giana Bell Other [facility] Other 12-05-2022 11:30-0400 Body mass index (BMI) [Ratio] 55.09 kg/m2 Giana Bell Other [employer] [facility] Other 12-05-2022 11:30-0400 Body temperature 97.8 [degF] Giana Bell Other [facility] Other 12-05-2022 11:30-0400 Body weight 141.07 kg Giana Bell Other [facility] Other 12-05-2022 11:30-0400 Diastolic blood pressure 50 mm[Hg] Giana Bell Other [facility] Other 12-05-2022 11:30-0400 Systolic blood pressure 92 mm[Hg] Giana Blel Other [facility] Other 10-23-2022 09:42-0400 Diastolic blood pressure 80 mm[Hg] MD Giana Bell Work Phone: [facility] 10-23-2022 09:42-0400 Heart rate 75 /min MD Giana Bell Work Phone: [facility] 10-23-2022 09:42-0400 Respiratory rate 18 /min MD Giana Bell Work Phone: [facility] 10-23-2022 09:42-0400 SaO2% (BldA) [Mass fraction] 98 % MD Giana Bell Work Phone: [facility] 10-23-2022 09:42-0400 Systolic blood pressure 142 mm[Hg] MD Giana Bell Work Phone: [facility] 10-23-2022 09:03-0400 Inhaled oxygen flow rate 3 L/min MD Giana Bell Work Phone: [facility] 10-23-2022 08:15-0400 Body height 157.48 cm MD Giana Bell Work Phone: [facility] 10-23-2022 08:15-0400 Body weight 141.97 kg MD Giana Bell Work Phone: [facility] 10-09-2022 16:00-0400 Body height 160.02 cm Alka Hankins Other [facility] Other 10-09-2022 16:00-0400 Body mass index (BMI) [Ratio] 55.26 kg/m2 Alka Hankins Other [facility] Other 10-09-2022 16:00-0400 Body weight 141.52 kg Alka Hankins Other [facility] Other 09-04-2022 12:30-0400 Body height 160.02 cm Giana Bell Other [facility] Other 09-04-2022 12:30-0400 Body mass index (BMI) [Ratio] 55.26 kg/m2 Giana Bell Other [facility] Other 09-04-2022 12:30-0400 Body weight 141.52 kg Giana Bell Other [facility] Other 09-04-2022 12:30-0400 Diastolic blood pressure 82 mm[Hg] Giana Bell Other [facility] Other 09-04-2022 12:30-0400 Systolic blood pressure 128 mm[Hg] Giana Bell Other [facility] Other 08-07-2022 08:38-0500 Diastolic blood pressure 55 mm[Hg] MD Giana Bell Work Phone: [facility] 08-07-2022 08:38-0500 Heart rate 78 /min MD Giana Bell Work Phone: [facility] 08-07-2022 08:38-0500 Respiratory rate 16 /min MD Giana Bell Work Phone: [facility] 08-07-2022 08:38-0500 SaO2% (BldA) [Mass fraction] 95 % MD Giana Bell Work Phone: [facility] 08-07-2022 08:38-0500 Systolic blood pressure 130 mm[Hg] MD Giana Bell Work Phone: [facility] 08-07-2022 07:59-0500 Inhaled oxygen flow rate 3 L/min MD Giana Bell Work Phone: [facility] 08-07-2022 07:23-0500 Body height 157.48 cm MD Giana Bell Work Phone: [facility] 08-07-2022 07:23-0500 Body weight 141.97 kg MD Giana Bell Work Phone: [facility] 02-27-2022 14:15-0400 Body height 160.02 cm Zena García Other [facility] Other 02-27-2022 14:15-0400 Body mass index (BMI) [Ratio] 53.67 kg/m2 Zena García Other [facility] Other 02-27-2022 14:15-0400 Body weight 137.44 kg Zena García Other [facility] Other 02-06-2022 15:00-0400 Body height 160.02 cm Zena García Other [facility] Other 02-06-2022 15:00-0400 Body mass index (BMI) [Ratio] 53.67 kg/m2 Zena García Other [facility] Other 02-06-2022 15:00-0400 Body weight 137.44 kg Zena García Other [facility] Other 01-03-2022 10:35-0400 Body height 160.02 cm Jazz Nance Other [facility] Other 01-03-2022 10:35-0400 Body mass index (BMI) [Ratio] 53.67 kg/m2 Jazz Nance Other [facility] Other 01-03-2022 10:35-0400 Body temperature 98.5 [degF] Jazz Nance Other [facility] Other 01-03-2022 10:35-0400 Body weight 137.44 kg Jazz Nance Other [facility] Other 01-03-2022 10:35-0400 SaO2% (BldA) [Mass fraction] 95 % Jazz Nance Other [facility] Other 11-06-2021 15:45-0400 Body height 160.02 cm Zena García Other [facility] Other 03-22-2021 10:45-0400 Body height 160.02 cm Zena García Other [facility] Other 03-22-2021 10:45-0400 Body mass index (BMI) [Ratio] 50.3 kg/m2 Zena García Other [facility] Other 03-22-2021 10:45-0400 Body weight 128.82 kg Zena García Other [facility] Other Encounters Encounter Date Encounter Type Care Provider Facility Start: 09-13-2023 End: 09-13-2023 ambulatory DANIELA HENDRICKS [facility] Start: 07-15-2023 End: 07-15-2023 ambulatory Giana Bell Other [facility] Other Start: 07-15-2023 Telephone encounter Giana Bell [facility] Start: 06-07-2023 End: 06-07-2023 ambulatory Giana Bell Other [facility] Other Start: 06-07-2023 Telephone encounter Giana Bell [facility] Start: 06-05-2023 End: 06-05-2023 ambulatory Giana Bell Other [facility] Other Start: 06-05-2023 Office outpatient vi sit 25 minutes Giana Bell [facility] Start: 05-28-2023 (Procedure) Short Eric Villanueva [facility] Start: 05-28-2023 End: 05-28-2023 ambulatory Eric Villanueva Facility:[facility] Start: 05-28-2023 End: 05-28-2023 Admission to same day surgery center MD Giana Bell Work Phone: [facility] Work Phone: Start: 05-28-2023 End: 05-28-2023 ambulatory MD Giana Bell Work Phone: [facility] Work Phone: Start: 05-20-2023 End: 05-20-2023 ambulatory Eric Villanueva Other [facility] Other Start: 05-20-2023 Office outpatient vi sit 25 minutes Eric Villanueva [facility] [place] [facility] Start: 05-08-2023 End: 05-08-2023 ambulatory RIMA LOUIS [facility] Start: 05-07-2023 (Procedure) Boyd Villanueva [facility] Start: 05-07-2023 End: 05-07-2023 ambulatory Giana Bell [facility] Other Start: 05-07-2023 End: 05-07-2023 Admission to same day surgery center MD Giana Bell Work Phone: [facility] Work Phone: Start: 04-23-2023 End: 04-23-2023 ambulatory Eric Villanueva Facility:[facility] Start: 04-23-2023 End: 04-23-2023 Patient encounter procedure MD Giana Bell Work Phone: [facility] Start: 04-23-2023 End: 04-23-2023 ambulatory MD Giana Bell Work Phone: [facility] Work Phone: Start: 04-23-2023 Office outpatient vi sit 25 minutes Eric Villanueva [facility] [place] [facility] Start: 03-06-2023 End: 03-06-2023 ambulatory Giana Bell Other [facility] Other Start: 03-06-2023 Office outpatient vi sit 15 minutes Giana Bell [facility] Start: 02-28-2023 End: 02-28-2023 ambulatory Eric Villanueva Other [facility] Other Start: 02-28-2023 Office outpatient vi sit 15 minutes Eric Gilesgiuliano [facility] [place] [facility] Start: 02-12-2023 (Procedure) Boyd Villanueva [facility] Start: 02-12-2023 End: 02-12-2023 Admission to same day surgery center MD Giana Bell Work Phone: [facility] Work Phone: Start: 02-12-2023 End: 02-12-2023 ambulatory MD Giana Bell Work Phone: [facility] Work Phone: Start: 02-07-2023 End: 02-07-2023 ambulatory Eric Villanueva Other [facility] Other Start: 02-07-2023 Office outpatient vi sit 25 minutes Eric Gilesgiuliano [facility] [place] [facility] Start: 01-01-2023 End: 01-01-2023 ambulatory Giana Bell Other [facility] Other Start: 01-01-2023 Telephone encounter Giana Bell [facility] Start: 12-31-2022 End: 12-31-2022 ambulatory Giana Bell Other [facility] Other Start: 12-31-2022 Telephone encounter Giana Bell [facility] Start: 12-05-2022 End: 12-05-2022 ambulatory Giana Bell Other [facility] Other Start: 12-05-2022 Office outpatient vi sit 25 minutes Giana Bell [facility] Start: 11-27-2022 End: 11-27-2022 ambulatory Giana Bell Other [facility] Other Start: 11-27-2022 Telephone encounter Giana Bell [facility] Start: 11-13-2022 End: 11-13-2022 ambulatory [facility] Start: 11-06-2022 End: 11-07-[address] GIANA BELL Facility: Start: 11-05-2022 End: 11-05-2022 ambulatory Zena García Facility:[facility] Start: 11-05-2022 End: 11-05-2022 ambulatory MD Giana Bell Work Phone: [facility] Work Phone: Start: 11-05-2022 End: 11-05-2022 Patient encounter procedure MD Giana Bell Work Phone: [facility] Start: 10-23-2022 (Procedure) Short Eric Villanueva [facility] Start: 10-23-2022 End: 10-23-2022 ambulatory Eric Villanueva [facility] Other Start: 10-23-2022 End: 10-23-2022 Admission to same day surgery center MD Giana Bell Work Phone: [facility] Work Phone: Start: 10-10-2022 End: 10-10-2022 ambulatory Eric Villanueva Other [employer] [facility] Other Start: 10-10-2022 Telephone encounter [facility] Start: 10-09-2022 End: 10-09-2022 Patient encounter procedure MD Giana Bell Work Phone: [facility] Start: 10-09-2022 End: 10-09-2022 ambulatory Alka Ellis [employer] [facility] Other Start: 10-09-2022 Office outpatient ne w 45 minutes Alka Hankins [facility] Start: 09-04-2022 End: 09-04-2022 ambulatory Giana Bell Other [facility] Other Start: 09-04-2022 Office outpatient vi sit 15 minutes Giana Bell [facility] Start: 08-24-2022 End: 08-24-2022 ambulatory Eric Villanueva Other [facility] Other Start: 08-24-2022 Telephone encounter Eric [facility] Start: 08-22-2022 End: 08-23-2022 ambulatory ZENA POTTER Facility:[facility] Start: 08-22-2022 End: 08-22-2022 Patient encounter procedure ZENA POTTER [facility] Start: 08-14-2022 End: 08-14-2022 ambulatory Eric Villanueva Other [facility] Other Start: 08-14-2022 Office outpatient vi sit 25 minutes Eric Villanueva [facility] [place] [facility] Start: 08-07-2022 End: 08-07-2022 ambulatory Eric Villanueva Facility:[facility] Start: 08-07-2022 End: 08-07-2022 Admission to same day surgery center MD Giana Bell Work Phone: [facility] Work Phone: Start: 08-07-2022 End: 08-07-2022 ambulatory MD Giana Bell Work Phone: [facility] Work Phone: Start: 07-27-2022 End: 07-27-2022 ambulatory Giana Bell Other [facility] Other Start: 07-27-2022 Telephone encounter Giana Bell [facility] Start: 07-26-2022 End: 07-27-[address] GIANA BELL Facility:[facility] Start: 07-17-2022 End: 07-17-2022 ambulatory Eric Villanueva Other [facility] Other Start: 07-17-2022 Telephone encounter Eric Villanueva [facility] Start: 06-19-2022 Adult health examination Eric Villanueva Other [employer] [facility] Other Start: 06-19-2022 End: 06-20-[address] GIANA BELL Facility:[facility] Start: 06-10-2022 End: 06-11-[address] GIANA BELL Facility:[facility] Start: 05-08-2022 End: 05-09-[address] GIANA BELL Facility:[facility] Start: 04-16-2022 End: 04-16-2022 ambulatory Eric Villanueva Other [facility] Other Start: 04-16-2022 Telephone encounter Eric Ja[facility] Start: 03-26-2022 End: 03-26-2022 ambulatory Eric Villanueva Other [employer] [facility] Other Start: 03-26-2022 Telephone encounter Eric Jaeger [facility] Start: 03-13-2022 End: 03-13-2022 ambulatory Eric Villanueva Other [employer] [facility] Other Start: 03-13-2022 Telephone encounter Eric Jaeger [employer] Start: 03-12-2022 End: 03-12-2022 ambulatory Eric Villanueva Other [employer] [facility] Other Start: 03-12-2022 Office outpatient ne w 45 minutes Eric [facility] [place] [facility] Start: 03-09-[address] GIANA BELL Facil ity:[facility]1 Start: 03-08-2022 End: 03-09-[address] GIANA BELL Facility:[facility]1 Start: 02-27-2022 End: 02-27-2022 ambulatory Zena García Other [facility] Other Start: 02-27-2022 Patient encounter procedure Zena García [facility] Start: 02-22-2022 End: 02-22-2022 ambulatory Eric Villanueva Other [facility] Other Start: 02-22-2022 Telephone encounter Eric Jaeger [employer] Start: 02-06-2022 End: 02-06-2022 ambulatory Zena García Other [facility] Other Start: 02-06-2022 Office outpatient vi sit 25 minutes Zena García [facility] Start: 01-24-2022 End: 08-04-[address] GIANA BELL Facility:[facility]1 Start: 01-03-2022 End: 01-03-2022 ambulatory Jazz Nance Other [employer] [facility] Other Start: 01-03-2022 Office outpatient vi sit 25 minutes Jazz Nance [facility] Start: 11-06-2021 End: 11-06-2021 ambulatory Zena García Other [employer] [facility] Other Start: 11-06-2021 Office outpatient vi sit 15 minutes Zena Ricky [facility] Start: 09-06-2021 ambulatory ZENA ABBEY Facility :[facility] Start: 08-08-2021 End: 08-08-2021 ambulatory Zena Hendrixarney Other [employer] [facility] Other Start: 08-08-2021 Office outpatient vi sit 15 minutes Zena Ricky [facility] Start: 03-22-2021 Office outpatient vi sit 15 minutes Zena Hendrixarney [facility] Procedures Date Procedure Procedure Detail Performing [...] Date Care Activity Detail Author Start: 05-28-2023 [facility] Start: 05-07-2023 [facility] Start: 02-12-2023 [facility] Start: 10-23-2022 [facility] Start: 08-07-2022 [facility] Patient Education Kay Non Brinda gn[facility] Work Phone: Patient referral [facility] Work Phone: Immunizations Immunization Date Immunization Notes Care Provider Fa [facility] 06-05-2022 Prevnar 20 Eric Villanueva Other [facility] Other 04-17-2022 COVID-19 Pfizer (Pediatric) Eric Villanueva Other [facility] Other 04-17-2022 influenza virus vaccine, split virus (incl. purified surface antigen) Eric Villanueva Other [facility] Other 04-14-2021 COVID-19 Vaccine Pfi zer - Documentation Purposes Only Eric Villanueva Other [facility] Other 04-14-2021 influenza virus vaccine, split virus (incl. purified surface antigen) Eric Villanueva Other [facility] Other 03-24-2021 SARS-CoV-2 (COVID-19 ) Ad26 vaccine, recombinant ZENA POTTER [facility] 03-22-2021 Kenalog -40 mg Zena quintero Other [facility] Other 11-16-2020 Kenalog -40 mg Zena quintero Other [facility] Other 08-22-2020 SARS-CoV-2 (COVID-19 ) Ad26 vaccine, recombinant ZENA POTTER [facility] 07-25-2020 SARS-CoV-2 (COVID-19 ) Ad26 vaccine, recombinant ZENA POTTER [facility] 06-20-2020 zoster vaccine, live Eric Villanueva Other [facility] Other 01-07-2020 zoster vaccine, live Eric Villanueva Other [facility] Other 05-05-2019 influenza virus vaccine, split virus (incl. purified surface antigen) Eric Villanueva Other [facility] Other 04-07-2018 influenza virus vaccine, split virus (incl. purified surface antigen) Eric Villanueva Other [facility] Other 03-21-2016 diphtheria, tetanus toxoids and acellular pertussis vaccine, unspecified formulation Eric Villanueva Other [facility] Other 12-01-2015 pneumococcal polysaccharide vaccine, 23 valent Eric Villanueva Other [facility] Other 03-23-2013 pneumococcal conjuga te vaccine, 13 valent Eric Villanueva Other [facility] Other pneumococcal Conjuga te, unspecified formulation; Translations: [Need for prophylactic vaccination against Streptococcus pneumoniae (pneumococcus)] Eric Villanueva Other [facility] Other Payers Date Payer Category Payer Self-pay [id number] 1959 Medicare [id number] 1959 Unknown [id number] 2.16.840.1.129180.19 1950 Unknown [id number] 2.16.840.1.453374.3.579.2.727 1950 Unknown [id number] 2.16.840.1.986883.3.579.2.593 1950 Unknown [id number] 2.16.840.1.851806.3.579.2.593 1950 Unknown [id number] 2.16.840.1.065569.3.579.2.593 1950 Unknown [id number] 2.16.840.1.773392.3.579.2.593 1950 Unknown [id number] 2.16.840.1.203537.3.579.2.593 1950 Unknown [id number] 2.16.840.1.812717.3.579.2.593 1950 Unknown [id number] 2.16.840.1.381772.3.579.2.593 1950 Unknown [id number] 2.16.840.1.537510.3.579.2.593 1950 Unknown [id number] 2.16.840.1.758542.3.579.2.593 Private Health Insurance [facility] [id number] Unknown [employer] [id number] Unknown HCAP/HFA/FAP Active [id number] Unknown [id number] 2.16.840.1.383387.3.579.2.531 Unknown [id number] 2.16.840.1.876711.3.579.2.531 Unknown [id number] 2.16.840.1.160717.3.579.2.531 Unknown [id number] 2.16.840.1.421756.3.579.2.531 Unknown [id number] 2.16.840.1.159607.3.579.2.531 Unknown [id number] 2.16.840.1.544481.3.579.2.531 Unknown [id number] 2.16.840.1.660680.3.579.2.531 Unknown [id number] 2.16.840.1.041100.3.579.2.531 Social History Date Type Detail Facility Unknown if ever smoked [facility] Other Sex Assigned At [facility] Start: 08-07-2022 End: 05-07-2023 Tobacco smoking status NHIS Never smoked tobacco (finding) [facility] Start: 1950 Sex Assigned At Female F [facility] Tobacco smoking status Never [facility] Goals Date Patient Goal Desired Activity /State Clinical Notes 03-22-2021 to 09-13-2023 Note Date & Type Note Facility 09-13-2023 Note Patient here for [facility] ED for chest pain in Jul 2023. 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 Last stress test was performed in Feb [...] All other systems reviewed and are negative. [facility] 07-15-2023 Evaluation note Encounter Date Diagnosis Assessment Notes Jun, Mixed hyperlipidemia (ICD-10 - E78.2) [facility] 12-13-2023 Evaluation note* Encounter Date Diagnosis [...] K52.9) declines GI referral at this time. [facility] Other 11-27-2023 Evaluation note* Encounter Date Diagnosis [...] Above note written by Arian Alanis MA, [employer]. Edited and approved by Dr. Eric Villanueva MD. [facility] Other 11-15-[address] [facility] SUBJECTIVE HPI: Libra Noonan is a [...] warm and dry. Neurological: (more content not included)...[facility] 04-23-2023 Evaluation note* Encounter Date Diagnosis Assessment [...] note writ ten by Emi Gutierrez LPN, [employer]. Edited and approved by Dr. Eric Villanueva MD. [facility] Other 09-13-2023 Evaluation note* Encounter Date Diagnosis Assessment Notes Treatment Notes Treatment Clinical Notes Feb, Type 2 diabetes mellitus with hyperglycemia (ICD-10 - E11.65) Goal: Maintain A1c below 7.0% by being compliant with prescribed medications, diet & exercise plan prior to f/u visit. Laboratory results were reviewed with patient. STATUS: New/continous Reviewed glucose of 249 - will increase dose of glipizide. [facility] Other 09-07-2023 Evaluation note* Encounter Date Diagnosis [...] note writ ten by Emi Gutierrez LPN, Manager [employer]. Edited and approved by Dr. Eric Villanueva MD. [place] [employer] Other 08-22-2023 Procedure [facility]08-22-2023 Procedure [facility]08-17-2023 Evaluation note* Encounter Date Diagnosis Assessment Notes [...] note writ ten by Arian Alanis MA, Manager [employer]. Edited and approved by Dr. Eric Villanueva MD. [facility] Other 07-10-2023 Evaluation note* Encounter Date Diagnosis Assessment Notes Treatment Notes Treatment Clinical Notes Dec, Dysuria (ICD-10 - R30.0) [facility] 06-14-2023 Evaluation note* Encounter Date Diagnosis [...] home. Discussed ER if symptoms worsen. Nov, alf (current) use of insulin (ICD-10 - Z79.4) [...] E78.2) chronic - pt requests a refill [facility] Other 06-06-2023 Evaluation note* Encounter Date Diagnosis Assessment Notes Treatment Notes Treatment Clinical Notes Nov, Dysuria (ICD-10 - R30.0) [facility] [...] this year. 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 Continue present meds for chronic problem. [facility] Other 03-03-2023 Evaluation note* Encounter Date Diagnosis Assessment Notes Treatment Notes Treatment Clinical Notes Aug, Other spondylosis with radiculopathy, lumbar region (ICD-10 - M47.26) [facility] Other 02-21-2023 Evaluation note* Encounter Date Diagnosis [...] note writ ten by Emi Gutierrez LPN, [employer]. Edited and approved by Dr. Eric Villanueva MD. [facility] Other 02-03-2023 NotePROCEDURE: XR HIP RT 2 [...] authenticated by: MIGUEL ANGEL CABALLERO Date: 2022-07-27 09:17[facility]01-24-2023 Evaluation note* Encounter Date Diagnosis Assessment Notes Treatment Notes Treatment Clinical Notes Jun, Other spondylosis with radiculopathy, lumbar region (ICD-10 - M47.26) [facility] Other 10-24-2022 Evaluation note* Encounter Date Diagnosis Assessment Notes Treatment Notes Treatment Clinical Notes Mar, Other spondylosis with radiculopathy, lumbar region (ICD-10 - M47.26) [facility] Other 09-19-2022 Evaluation note* Encounter Date Diagnosis [...] Above note written by Emi Gutierrez LPN, Manager [employer]. Edited and approved by Dr. Eric Villanueva [...] negative findings were considered in medical decision-making. [facility] Other 09-06-2022 Evaluation note* Encounter Date Diagnosis Assessment Notes Treatment Notes Treatment Clinical Notes Feb, Primary osteoarthritis of left knee (ICD-10 - M17.12) Feb, Acute pain of left knee (ICD-10 - M25.562) [facility] Other 08-16-2022 Evaluation note* Encounter Date Diagnosis [...] pain of left knee (ICD-10 - M25.562) [facility] Other 07-13-2022 Evaluation note* Encounter Date Diagnosis [...] the ER for worsening symptoms or concerns [facility] Other 05-16-2022 Evaluation note* Encounter Date Diagnosis [...] pain of left knee (ICD-10 - M25.562) [facility] Other 02-15-2022 Evaluation note* Encounter Date Diagnosis [...] total right knee replacement (ICD-10 - Z96.651) [facility] Other 09-29-2021 Evaluation note* Encounter Date Diagnosis [...] total right knee replacement (ICD-10 - Z96.651) [facility] Other Evaluation + Plan note No data available for this section [facility] evaluation noteNo InformationNort [employer] Other Evaluation noteNo assessment information available [facility] Work Phone: [facility] general Narrative - Reported* Type Description Date Medical History Diabetes Medical History Hypertension Medical History Hypercholesteremia Medical History chronic depression Medical History anxiety Surgical History tonsillectomy Surgical History appendectomy Surgical History cholecystectomy Surgical History knee replacement Surgical History hysterectomy Surgical History laparoscopy Surgical History carpal tunnel release Surgical History wisdom teeth extract Hospitalization History see above [facility] Other [facility] Narrative - Reported* Type Description Date Medical History Diabetes Medical History Hypertension Medical History Hypercholesteremia Medical History chronic depression Medical History anxiety Surgical History tonsillectomy Surgical History appendectomy Surgical History cholecystectomy Surgical History knee replacement Surgical History hysterectomy Surgical History laparoscopy Surgical History carpal tunnel release Surgical History wisdom teeth extract Hospitalization History see above Hospitalization History [facility] 2021 [employer] [facility] Other History general Narrative - Reported* Type [...] 07/2022 Hospitalization History see above Hospitalization History [facility] 2021 [facility] Other Hospital Discharge instructions No data available for this section [facility] progress note No data available for this section [facility] Reason for Referral Reason *Waiting for appt Uncontrolled type 2 diabetes - on ; A1Cs will be scanned in from 2021. Diagnosis 1 Type 2 diabetes jayda itus with hyperglycemia (E11.65) Referral Organization [facility] Referring Provider First Name Giana Referring Provider Last Name Ray Referring Provider Specialty Family Medi cine Referred Organization [facility] Endocrinology Referred Provider Akash Hendrix Referred Address [address] ,[place],[address] Referred Provider Specialty Nurse Pracefren tionechiquita Referral Priority Routine General Notes Aylin Muñoz 03:32:36 PM >received today, sent p2p Reason *FU 02/21 Schedule with Ellen Villanueva for possible lumbar injections. Diagnosis 1 Primary osteoarthrit is of left knee (M17.12) Diagnosis 2 Spondylolisthesis of lumbar region (M43.16) Referral Organization [facility] Referring Provider First Name Zena Referring Provider Last Name Ricky Referring Provider Specialty Nurse Pract itioner Referred Organization [facility] [place] Referred Provider Eric Villanueva Referred Address [address],[place],[address] Referred Provider Specialty Pain Medicin e Referral [...] content) DATE CREATED AUTHOR 08/24/2022 Eron Casanova [facility] DATE CREATED AUTHOR AUTHOR'S ORGANIZ ATION 11/08/2022 [facility] DATE CREATED AUTHOR AUTHOR'S ORGANIZ ATION 06/06/2023 [facility] DATE CREATED AUTHOR AUTHOR'S ORGANIZ ATION 09/14/2023 [facility] FOR RECORDS PERTAINING TO PATIENTS WHO ARE [...] BE BASED ON THE PRIMARY CLINICAL RECORDS. [employer] [facility]. provides no warranty or guarantee of the accuracy or completeness of information in this document.
[2023-10-07] MEDS: REGADENOSON 0.4 MG/5 ML SYRINGE 0.400000000000000022 MG IV (09:43)
== END 2023-10-07 09:17 | disposition home or self-care (01) ==
LOC: CARD 09:17
PROVIDERS: PCP Family Medicine; Visit Provider Internal Medicine Cardiovascular Disease
DX: R06.09 Other forms of dyspnea (principal); R07.9 Chest pain, unspecified
CPT/HCPCS: 93017; J2785

== ENCOUNTER 2023-10-17 06:53 | Outpatient (OUT) | payer MEDICARE, OTHER, SELFPAY ==
--- OUTSIDE RECORDS SUMMARY | 2023-10-17 06:58 | XMS_ITS | CCD ---
Author Organization [facility] Care Team Providers [facility] Pract[facility] Field Coordinator Name Role Phone Zena García Unavailable Jazz Nance Unavailable Eric Villanueva Unavailable MD Garrison Bell Primary Care Provider MD Eric Villanueva Attending Provider GARRISON BELL Primary Care Physician [phone] ZENA POTTER Attending Unavailable Garrison Bell Unavailable Alka Hankins Unavailable MD Garrison Bell Primary Care Provider [phone] MD Alka Hankins R Attending Provider [phone] MD Eric Villanueva Attending Provider [phone] ANGELO García Attending Provider DR GARRISON BELL Admitting Unavailable RAY, DR GARRISON Jefferson Primary Care Unavailable [place], DR ANN MARIE Gibbons Consulting Unavailable RAY, DR GARRISON Jefferson Attending Unavailable BELL, DR GARRISON Jefferson Consulting Unavailable BELL, DR GARRISON Jefferson Admitting Unavailable BELL, DR GARRISON Jefferson Consulting Unavailable RAY, DR GARRISON Jefferson Primary Care Unavailable BELL, DR GARRISON Jefferson Attending Unavailable RAY, DR GARRISON Jefferson Primary Care Unavailable RIMA LOUIS Consulting Unavailable RIMA LOUIS Attending Unavailable RIMA LOUIS Admitting Unavailable RAY, DR GARRISON Jefferson Primary Care Unavailable ERYN, DR RONALD De Guzman Attending Unavailable ERYN, DR RONALD De Guzman Admitting Unavailable COURTNEY, DR LUCRECIA Ellis Consulting Unavailable ERYN, DR RONALD De Guzman Consulting Unavailable YONIS PACHECO Consulting Unavailable RAY, DR GARRISON Jefferson Primary Care Unavailable BELL, DR GARRISON Jefferson Consulting Unavailable BELL, DR GARRISON Jefferson Attending Unavailable BELL, DR GARRISON Jefferson Admitting Unavailable BELL, DR GARRISON Jefferson Admitting Unavailable BELL, DR GARRISON Jefferson Primary Care Unavailable BELL, DR GARRISON Jefferson Attending Unavailable ZIEBER, DR MIGUEL ANGEL Ellis Consulting Unavailable BELL, DR GARRISON Jefferson Consulting Unavailable ANN MARIE TINEO Consulting Unavailable BELL, DR GARRISON Jefferson Admitting Unavailable BELL, DR GARRISON Jefferson Primary Care Unavailable BELL, DR GARRISON Jefferson Consulting Unavailable BELL, DR GARRISON Jefferson Attending Unavailable WEI REED Consulting Unavailable BELL, DR GARRISON Jefferson Primary Care Unavailable RIMA LOUIS Consulting Unavailable RIMA LOUIS Attending Unavailable RIMA LOUIS Admitting Unavailable BELL, DR GARRISON Jefferson Admitting Unavailable BELL, DR GARRISON Jefferson Primary Care Unavailable BELL, DR GARRISON Jefferson Attending Unavailable MD Garrison Bell Primary Care Provider [phone] MD Eric Villanueva Attending Provider [phone] MD Garrison Bell Primary Care Provider [phone] MD Eric Villanueva Attending Provider RIMA LOUIS Attending Unavailable DANIELA HENDRICKS Attending Unavailable CONNIE, EHAB Attending Unavailable CONNIE EHAB Attending Unavailable MD Garrison Bell Primary Care Provider [phone] MD Eric Villanueva Attending Provider Garrison Bell E Primary Care Unavailable Eric Villanueva Attending Unavailable Kay, Eric Admitting Unavailable Bell, Garrison E Primary Care Unavailable Eric Villanueva Attending Unavailable Kay, Eric Admitting Unavailable Bell, Garrison E Primary Care Unavailable Eric Villanueva Attending Unavailable Kay, Eric Admitting Unavailable Bell, Garrison E Primary Care Unavailable Eric Villanueva Attending Unavailable Eric Villanueva Admitting Unavailable Eric Villanueva Attending Unavailable Kay, Eric Admitting Unavailable Bell, Garrison E Primary Care Unavailable Eric Villanueva Admitting Unavailable Bell, Garrison E Primary Care Unavailable Eric Villanueva Attending Unavailable Bell, Garrison E Primary Care Unavailable Zena García Admitting Unavailable Zena García Attending Unavailable Allergies Allergy Classification Reported Allergen(s) Allergy Type Date of Onset Reaction(s) Facility (20 sources) Acetaminophen / oxyCODONE; Translations: [acetaminophen-ox ycodone] Drug Allergy 01-21-20 19 Unknown (qualifier value) [facility] (8 sources) oxyCODONE; Translations: [oxycodone] Drug Allergy 03-20-20 22 Vomiting, constipation, constipation, dizziness, and stomach issues [facility] (8 sources) Propoxyphene; Translations: [propoxyphene] Drug Allergy 03-20-20 22 Vomiting [facility] (2 sources) acetaminophen / propoxyphene; Translations: [acetaminophen-pr opoxyphene] Drug Allergy Unknown (qualifier value) [facility] (2 sources) Acetaminophen / oxyCODONE; Translations: [Percocet] Drug Allergy 07-28-19 [facility]ository (13 sources) Lisinopril Drug Allergy 01-20-20 19 Unknown, [facility] (13 sources) metFORMIN Drug Allergy 01-20-20 19 Unknown, [facility] (11 sources) NITROFURANTOIN, MACROCRYSTALS / Nitrofurantoin, Monohydrate Drug Allergy Unknown [facility] Other (3 sources) Allergies Reconciled Propensity to adverse reactions Unknown [facility] Other (3 sources) patient allergy list reviewed by nurse or physicia Propensity to adverse reactions 01-21-20 Comment:Done [facility] Other (11 sources) Darvocet A500 *ANALGESICS - OPIOID* Propensity to adverse reactions 01-21-20 19 Unknown [facility] Other (2 sources) Acetaminophen Drug Allergy 10-10-19 24 dizziness, and stomach issues [facility] (2 sources) Nitrofurantoin Drug Allergy 10-10-19 24 [facility] (2 sources) Darvocet A500 *ANALGESICS - OP Allergy to substance 08-15-19 24 [facility] (1 source) Acetaminophen / oxyCODONE; Translations: [OXYCODONE-ACETAM INOPHEN] Drug Allergy 09-07-19 [facility] Repository (1 source) ADHESIVE TAPE-SILICONES; Translations: [ADHESIVE TAPE-SILICONES] Propensity to adverse reactions to drug (disorder) 08-04-19 [facility] Repository (1 source) PROPOXYPHENE N-ACETAMINOPHEN; Translations: [PROPOXYPHENE N-ACETAMINOPHEN] Propensity to adverse reactions to drug (disorder) 09-07-19 [facility] Repository Medications Current Medications Medication Drug Class(es) Dates Sig (Normalized) Sig (Original) Nevaeh Allergy 180 MG (11 sources) take 1 tablet by mouth once daily Nevaeh Allergy 180 MG 1 tablet Swallow whole with water; do not take with fruit juices. Orally Once a day Active Aspir-81 (20 sources) Aspir-81 Active aspirin 81 mg chewable tablet (19 sources) Platelet Aggregation Inhibitor, Nonsteroidal Anti-inflammatory Drug Start: 02-12-2023 take 1 tablet by mouth once daily Aspirin (Baby Aspirin) 81 mg Tablet,Chewable Active 81 MG PO Daily February 12, 2023 12:00am take 1 tablet by mouth once ainsley y Aspir-Low 81 MG 1 tablet Orally Once a day Active atorvastatin 80 mg oral tablet (20 sources) HMG-CoA Reductase Inhibitor Start: 12-13-2020 End: 09-04-2023 take 80 mg by mouth once daily Atorvastatin Active 80 MG PO Daily September 04, 2023 12:40pm azithromycin 250 mg oral tablet (4 sources) [...] 3.125 mg oral tablet (20 sources) alpha-Adrenergic Sally, beta-Adrenergic Sally Start: 08-07-2022 take 6.25 mg by mouth twice daily Carvedilol Active 6.25 MG PO Twice daily August 07, 2022 1:00am take 1 tablet by michael th every twelve hours Carvedilol 6.25 MG 1 tablet with food Orally Twice a day Active cholecalciferol 0.125 mg oral tablet (5 sources) Vitamin D Start: 02-12-2023 Cholecalcifero l (Vitamin D3) (Vitamin D3) 125 mcg (5,000 unit) Tablet Active 5000 UNIT PO .2xweek February 12, 2023 12:00am Start: 02-12-2023 take 1 tablet by michael th once daily Cholecalciferol (Vitamin D3) (Vitamin D3) 125 mcg (5,000 unit) Tablet Active 5000 UNIT PO Daily February 12, 2023 12:00am ciprofloxacin 250 mg oral tablet (6 sources) Quinolone Antimicrobial take 1 tablet by mouth every twelve hours Ciprofloxacin HCl 250 MG 1 tablet Orally every 12 hrs for 7 days Active cyclobenzaprine hydrochloride 5 mg oral tablet (11 sources) Muscle Relaxant Start: take 5 mg by mouth once daily Cyclobenzaprine Active 5 MG PO Daily August 15, 2023 1:00am Start: 08-14-2022 take 1 tablet by michael th every twenty-four hours Cyclobenzaprine HCl 5 MG 1 tablet as needed Orally Once a day for 30 days Jul, Not-Taking estradiol 0.1 mg/g vaginal cream (1 source) Start: 08-16-2021 estradiol 0.1 mg/g vaginal cream 1 gm, Vaginal, MonThu, # 42.5 gm, Refills(s) 3, Pharmacy: [facility] 536, 160, cm, 08/16/21 15:10:00 EST, Height/Length Dosing, 130, kg, 08/16/21 15:10:00 EST, Weight Dosing Start Date: 08/16/21 Status: Ordered ezetimibe 10 mg oral tablet (20 sources) Dietary Cholesterol Absorption Inhibitor Start: 08-07-2022 take 1 tablet by mouth once daily Ezetimibe (Zetia) 10 mg Tablet Active 10 MG PO Daily August 07, 2022 1:00am Start: 08-07-2022 take 1 tablet by michael th twice daily Ezetimibe (Zetia) 10 mg Tablet Active 10 MG PO Twice daily August 07, 2022 1:00am fexofenadine hydrochloride 180 mg oral tablet (8 sources) Histamine-1 Receptor Antagonist Start: 02-12-2023 take 1 tablet by mouth once daily Fexofenadine (Nevaeh) 180 mg Tablet Active 180 MG PO Daily February 12, 2023 12:00am gabapentin 300 mg oral capsule (4 sources) Anti-epileptic Agent Start: 03-12-2022 take 1 capsule by mouth every twelve hours Gabapentin 300 MG 1 capsule Orally Twice a day for 30 day(s) Feb, Active glipiZIDE 10 mg oral tablet (20 sources) Sulfonylurea Start: 08-15-2023 End: 09-04-2023 take 10 mg by mouth once daily Glipizide Active 10 MG PO Daily September 04, 2023 12:40pm Start: 08-07-2022 End: 09-04-2023 take 5 mg by mouth once daily Glipizide Discontinued 5 MG PO Daily August 07, 2022 1:00am September 04, 2023 12:40pm take 1 tablet by michael th 30 minutes before breakfast glipiZIDE 10 MG TAKE 1 TABLET BY MOUTH 30 MINUTES BEFORE BREAKFAST for 90 days Active take 1 tablet by michael th once daily 30 minutes before breakfast glipiZIDE 5 MG 1 tablet 30 minutes before breakfast Orally Once a day for 90 [...] 0-30) 100 UNIT/ML as directed Subcutaneous Active lisinopril 5 mg oral tablet (1 source) Angiotensin Converting Enzyme Inhibitor Start: 10-15-2023 take 5 mg by mouth once daily Lisinopril Active 5 MG PO Daily October 15, 2023 12:00am Novalin (1 source) Start: 08-16-2021 Novalin Novali n Start Date: 08/16/21 Status: Ordered ondansetron [...] PO Four times daily July 23, 2021 1:00am August 07, 2022 8:18am Start: 12-31-2020 End: 07-23-2021 take 4 mg by mouth every eight hours Ondansetron Discontinued 4 MG PO Q8H 14 December 31, 2020 12:00am July 23, 2021 2:44pm Start: 12-13-2020 End: 12-30-2020 take 1 tablet by mouth three times daily Ondansetron Hcl (Zofran) 4 mg tablet Discontinued 4 MG PO Three times daily 9 December 13, 2020 12:00am December 30, 2020 5:28am predniSONE 20 mg oral tablet (1 source) [...] / HYDROcodone bitartrate 5 mg oral tablet (7 sources) Opioid Agonist Start: 07-23-2021 End: 08-07-2022 take 1 tablet by mouth every six hours Hydrocodone-Acetam inophen Discontinued 1 TAB PO Q6H 10 July 23, 2021 August 07, 2022 8:18am cefdinir 300 mg oral capsule (7 sources) Cephalosporin Antibacterial Start: 12-31-2020 End: 07-23-2021 take 300 mg by mouth twice daily Cefdinir Discontinued 300 MG PO Twice daily 20 December 31, 2020 12:00am July 23, 2021 2:44pm cephalexin 500 mg oral capsule (14 sources) Cephalosporin Antibacterial Start: 07-23-2021 End: 08-07-2022 take 500 mg by mouth every eight hours Cephalexin Discontinued 500 MG PO Q8H 30 July 23, 2021 1:00am August 07, 2022 8:21am Start: 12-13-2020 End: 12-30-2020 take 500 mg by mouth twice daily Cephalexin Discontinued 500 MG PO Twice daily 20 December 13, 2020 12:00am December 30, 2020 5:28am dapagliflozin 5 mg oral tablet (9 sources) Sodium-Glucose Cotransporter 2 Inhibitor Start: 12-13-2020 End: 12-31-2020 take 1 tablet by mouth once daily Dapagliflozin Propanediol (Farxiga) 5 mg tablet Discontinued 5 MG PO Daily December 13, 2020 12:00am December 31, 2020 2:36pm Durolane (20 sources) Start: 02-27-2022 Durolane Feb, 60 mg Insulin Nph And Regular Human (7 sources) Start: 12-30-2020 End: 02-12-2023 inject 25 [...] / nitrofurantoin, monohydrate 75 mg oral capsule (7 sources) Nitrofuran Antibacterial Start: 12-13-2020 End: 12-13-2020 take 100 mg by mouth twice daily Nitrofurantoin Monohyd/M-Cryst Discontinued 100 MG PO Twice daily December 13, 2020 12:00am December 13, 2020 9:52pm pregabalin 25 mg oral capsule (17 sources) Start: 10-10-2023 End: 10-15-2023 take 1 capsule by mouth once daily Pregabalin (Lyrica) 25 mg capsule Discontinued 25 MG PO Daily October 10, 2023 12:00am October 15, 2023 9:41am Start: 10-23-2022 End: 02-12-2023 take 75 mg by mouth once daily Pregabalin Discontinued 75 MG PO Daily October 23, 2022 12:00am February 12, 2023 9:57am Start: 08-28-2022 take 1 capsule by mo [facility] every twelve hours Lyrica 75 MG 1 capsule Orally Twice a day for 90 days Aug, Active promethazine hydrochloride 12.5 mg oral tablet (7 sources) Phenothiazine Start: 12-13-2020 End: 12-30-2020 take 12.5 mg by mouth three times daily Promethazine Discontinued 12.5 MG PO Three times daily December 13, 2020 12:00am December 30, 2020 5:28am traMADol hydrochloride 50 mg oral tablet (20 [...] bronchiolitis due to respiratory syncytial virus] Onset: Episodic Asthma (3 sources) Uncomplicated asthma; Translations: [Unspecified asthma, uncomplicated] Chronic Chronic obstructive pulmonary disease and bronchiectasis (4 sources) Bronchitis, not specified as acute or chronic; Translations: [Bronchitis] Onset: 2 Resolved: 2 Episodic Coronary atherosclerosis and other heart disease (4 sources) Unstable angina; Translations: [Atherosclerotic heart disease of [place] coronary artery without angina pectoris] Onset: 2 Chronic Diabetes mellitus with complications (20 sources) Type 2 diabetes mellitus; Translations: [Type 2 diabetes mellitus with hyperglycemia] Onset: 3 Chronic Diabetes mellitus without complication (4 sources) Diabetes mellitus; Translations: [Type 2 diabetes mellitus without complication] Onset: 9 08-16-2021 Chronic Diabetes mellitus without complication (7 sources) Hyperglycemia; Translations: [Hyperglycemia, unspecified] 12-13-2020 Episodic [...] and colitis, unspecified Episodic Nonspecific chest pain (13 sources) Chest pain, unspecified; Translations: [Chest pain] Onset: 2 Episodic Osteoarthritis (20 sources) Osteoarthritis of left knee joint; Translations: [Unilateral primary osteoarthritis, left knee] Onset: 1 Resolved: 2 Chronic Other acquired deformities (20 sources) Lumbar spondylolisthesis; Translations: [Spondylolisthesis, lumbar region] Episodic Other aftercare (20 sources) Long-term current use of insulin; Translations: [intermediate manager (current) use of insulin] Episodic Other aftercare (2 sources) intermediate manager (current) use of insulin Episodic Other circulatory [...] Translations: [Other forms of dyspnea] Episodic Other lower respiratory disease (2 sources) Other forms of dyspnea; Translations: [Other forms of dyspnea] Onset: 3 Episodic Other nervous system disorders (20 sources) Chronic pain; Translations: [Other chronic pain] 10-08-2023 Chronic Other nervous system disorders (20 sources) Carpal tunnel syndrome of left wrist; Translations: [Carpal tunnel syndrome, left upper limb] Chronic Other nervous system disorders (8 sources) Other chronic pain; Translations: [Other chronic pain] Onset: 2 Resolved: 2 Chronic Other nervous [...] the skin and subcutaneous tissue, unspecified Episodic Other skin disorders (4 sources) Localized swelling, mass and lump, right upper limb; Translations: [Mass of right axilla] 09-04-2023 Episodic Other skin disorders (2 sources) Mass of chest wall; Translations: [Localized swelling, mass and lump, trunk] 09-04-2023 Episodic Other skin disorders (2 sources) Loss of hair; Translations: [Nonscarring hair loss, unspecified] 09-04-2023 Episodic Other skin disorders (2 sources) Nonscarring hair loss, unspecified; Translations: [Alopecia, unspecified] 09-04-2023 Episodic Other skin disorders (2 sources) Localized swelling, mass and lump, trunk; Translations: [Swelling, mass, or lump in chest] 09-04-2023 Episodic Otitis media and related conditions (3 sources) Chronic nonsuppurative otitis media of right ear; Translations: [Other chronic nonsuppurative otitis media, right ear] Chronic Septicemia (except in labor) (7 sources) Sepsis; Translations: [Sepsis, unspecified organism] 12-30-2020 Episodic Skin and subcutaneous tissue infections (7 sources) Cellulitis of scalp; Translations: [Cellulitis of [...] [Unilateral primary osteoarthritis, left knee] Onset: 3 Urinary tract infections (18 sources) Urinary tract infectious disease; Translations: [Urinary tract infection, site not specified] 07-23-2021 Episodic Past or Other Problems Problem Classification Problem Date Documented Da te Episodic/Chronic Other aftercare (1 source) Other jail (current) drug therapy; Translations: [OTH [facility] CURRENT DRUG THERAPY] Onset: 06-14-2022 Episodic Other lower respiratory disease (3 sources) Shortness of breath; Translations: [SHORTNESS OF BREATH] Onset: 06-10-2022 Episodic Other lower respiratory disease (1 source) Dyspnea, unspecified; Translations: [DYSPNEA UNSPECIFIED] Onset: 01-28-2022 Episodic Other non-traumatic joint disorders (5 sources) [...] Test Name Value Interpretation Reference Range Facility Office Visiton 10-09-2023 Follow-up visit [id number] Libra Noonan 1950 Date Provider Department Center 10/09/2023 JAX PECK Family History Problem Relation Age of Onset Rheumatic fever Mother Heart failure Mother Stroke Mother Other Mother Comments: She is unsure if this was a defibrillator Stroke Father Family Status - Relation Status Age at Mother Father Level of Service:99948 [place] OFFICE/OUTPATIENT ESTABLISHED HIGH MDM 40 MIN [facility] Orders Onlyon 10-09-2023 Orders Only [id number] Libra Noonan 1950 F Date Provider Department Center 10/09/2023 JOSE ALBERTO DOVE NERY Liang Family History Problem Relation Age of Onset Rheumatic fever Mother Heart failure Mother Stroke Mother Other Mother Comments: She is unsure if this was a defibrillator Stroke Father Family Status - Relation Status Age at Mother Father [facility] 36on 09-12-2023 36 Patient is scheduled for apt tomorrow with Dr. Hendricks. [facility] 36on 09-11-2023 36 Patient was seen in [facility] ED in Jul for chest pain. Says she's still having it often. She doesn't want to wait until 09/17 to see you in the office. Did you want testing prior to an office visit? I uploaded all the ED records into her family mediator for your review. Please advise. Thanks. [facility] 36on 09-04-2023 36 I received a call fr nichole Bell's office. She asked me to reach out to Libra to get her scheduled for a follow up. She told me she's been having left-sided chest pain, and was evaluated in the ED recently. I LM on patient's VM asking her to return my call. [facility] Basophils Auto (Bld) [#/Vol] on 08-16-2023 Basophils (Bld) [#/Vol] 0.1 10 3/uL 0.0-0.1 [facility] Basophils/100 WBC Auto (Bld) on 08-16-2023 Basophils/100 WBC (Bld) 0.9 % 0.2-2.0 [facility] Eosinophils/100 WBC Auto (Bl d)on 08-16-2023 Eosinophils/100 WBC (Bld) 6.5 % 0.9-7.0 [facility] Erythrocyte distribution wid th Auto (RBC) [Ratio]on 08-16-2023 Erythrocyte distribution width (RBC) [Ratio] 12.3 % 11.0-15.0 [facility] Estimated glomerular filtrat ion rate (GFR) non- Americanon 08-16-2023 GFR/1.73 sq M.predicted among non-blacks MDRD (S/P/Bld) [Vol rate/Area] 44 mL/min/{1.73_m2} >=60 [facility] Fibrin D-dimer [Presence] in Platelet poor plasma by Latex agglutinationon 08-16-2023 Fibrin D-dimer LA Ql (PPP) 0.72 mg/L FEU <=0.59 [facility] Comment on above: RESULTS CALLED TO DR NOLASCO/Hugo in D-Dimer concentration observed withthromboembolic events can be variable due to localization,size, and age of the thrombus. Therefore, a thromboembolicevent cannot be diagnosed with certainty on the basis of thereference range. D-Dimers may also be elevated for a varietyof disorders including advanced age, , coronarydisease, cancer, liver disease, infection, inflammation,hematoma, DIC, trauma, post-surgery, diabetes, thrombolyticor anticoagulant therapy, stress, and generalizedhospitalization. Globulin Calc (S) [Mass/Vol] on 08-16-2023 Globulin (S) [Mass/Vol] 3.7 g/dL [facility] Hematocrit Auto (Bld) [Volum e fraction]on 08-16-2023 Hematocrit (Bld) [Volume fraction] 36.1 % 36.0-48.0 [facility] Hemoglobin [Mass/volume] in Bloodon 08-16-2023 Hemoglobin (Bld) [Mass/Vol] 11.6 g/dL 12.0-16.0 [facility] Laboratory - Chemistry and C hemistry - challengeon 08-16-2023 Albumin [Mass/Vol] 3.1 g/dL 3.4-5.0 [facility] ALP [Catalytic activity/Vol] 100 U/L 46-116 [facility] ALT [Catalytic activity/Vol] 22 U/L 14-59 [facility] AST [Catalytic activity/Vol] 17 U/L 15-37 [facility] Bilirubin [Mass/Vol] 0.6 mg/dL 0.2-1.0 [facility] Calcium [Mass/Vol] 9.1 mg/dL 8.5-10.1 [facility] Chloride [Moles/Vol] 106 mmol/L 98-107 [facility] CO2 [Moles/Vol] 28.5 mmol/L 21.0-32.0 [facility] Creatinine [Mass/Vol] 1.21 mg/dL 0.55-1.02 [facility] GFR/1.73 sq M.predicted MDRD (S/P/Bld) [Vol rate/Area] 53 mL/min/{1.73_m2} >=60 [facility] Glucose [Mass/Vol] 214 mg/dL 74-106 [facility] Lipase [Catalytic activity/Vol] 15.0 U/L 16.0-77.0 [facility] Natriuretic peptide B (Bld) [Mass/Vol] 447.0 pg/mL <=900.0 [facility] Potassium [Moles/Vol] 4.3 mmol/L 3.5-5.1 [facility] Protein [Mass/Vol] 6.8 g/dL 6.4-8.2 [facility] Sodium [Moles/Vol] 144 mmol/L 136-145 [facility] Urea nitrogen [Mass/Vol] 23.0 mg/dL 7.0-18.0 [facility] Urea nitrogen/Creatinine [Mass ratio] 19.0 mg/mg [facility] Laboratory - Hematology and Cell countson 08-16-2023 Immature granulocytes/100 WBC (Bld) 0.3 % 0.0-0.5 [facility] Leukocytes [#/volume] correc nicholas for nucleated erythrocytes in Blood by Automated counon 08-16-2023 WBC corrected for nucl RBC Auto (Bld) [#/Vol] 7.0 10 3/uL 4.0-11.0 [facility] Lymphocytes Auto (Bld) [#/Vo l]on 08-16-2023 Lymphocytes (Bld) [#/Vol] 1.7 10 3/uL 1.2-3.8 [facility] Lymphocytes/100 WBC Auto (Bl d)on 08-16-2023 Lymphocytes/100 WBC (Bld) 24.4 % 20.5-60.0 [facility] MCH Auto (RBC) [Entitic mass ]on 08-16-2023 MCH (RBC) [Entitic mass] 30.6 pg 26.7-34.0 [facility] MCHC Auto (RBC) [Mass/Vol]on 08-16-2023 MCHC (RBC) [Mass/Vol] 32.1 g/dL 29.9-35.2 [facility] MCV Auto (RBC) [Entitic vol] on 08-16-2023 MCV (RBC) [Entitic vol] 95.3 fL 81.0-99.0 [facility] Monocytes Auto (Bld) [#/Vol] on 02-23-2024 Monocytes (Bld) [#/Vol] 0.4 10 3/uL 0.3-0.8 [facility] Monocytes/100 WBC Auto (Bld) on 08-16-2023 Monocytes/100 WBC (Bld) 6.3 % 1.7-12.0 [facility] Neutrophils Auto (Bld) [#/Vo l]on 08-16-2023 Neutrophils (Bld) [#/Vol] 4.3 10 3/uL 1.4-6.5 [facility] [facility] Neut[facility]ils/100 WBC Auto (Bl d)on 08-16-2023 Neutrophils/100 WBC (Bld) 61.6 % 43.0-75.0 [facility] No Panel Informationon 08-16 Eosinophils # (Auto) 0.5 10 3/uL 0.0-0.7 [facility] Immature Granulocyte # (Auto) 0.02 10 3/uL 0.00-0.03 [facility] Troponin I High Sensitivity 12.0 pg/mL 4.0-51.3 [facility] Comment on above: CUT-OFF POINTS HAVE BEEN ESTABLISHED BASED ON THE FOURTHIVERSAL DEFINITION OF MYOCARDIAL INFARCTION. THE UPPERREFERENCE LIMIT (URL) OF TROPONIN, DEFINED THE 99THPERCENTILE OF cTnI DISTRIBUTION IN A REFERENCE POPULATION,HAS BEEN CONFIRMED THE DECISION THRESHOLD FOR MIDIAGNOSIS.99TH PERCENTILE = 51.4 PG/MLNOTE: HIGH-SENSITIVITY TROPONIN ASSAY IS NOT INTENDED TO BEUSED IN ISOLATION BUT SHOULD BE INTERPRETED IN CONJUNCTIONWITH OTHER DIAGNOSTIC AND CLINICAL INFORMATION. Platelet mean volume Auto (B ld) [Entitic vol]on 08-16-2023 Platelet mean volume (Bld) [Entitic vol] 10.3 fL 9.5-13.5 [facility] Platelets Auto (Bld) [#/Vol] on 08-16-2023 Platelets (Bld) [#/Vol] 214 10 3/uL 150-450 [facility] RBC Auto (Bld) [#/Vol]on RBC (Bld) [#/Vol] 3.79 10 6/uL 4.20-5.40 [facility] Serum or plasma albumin/glob ulin mass ratioon 08-16-2023 Albumin/Globulin [Mass ratio] 0.8 {ratio} [facility] Serum or plasma anion gap de terminationon 08-16-2023 Anion gap [Moles/Vol] 13.8 mmol/L [facility] Office Visiton 05-08-2023 Follow-up visit [id number] Libra Noonan 1950 F Date Provider Department Center 05/08/2023 RIMA VICK CARD [facility] Family History Problem Relation Age of Onset Rheumatic fever Mother Heart failure Mother Stroke Mother Other Mother Comments: She is unsure if this was a defibrillator Stroke Father Family Status - Relation Status Age at Mother Father Level of Service:10074 [place] OFFICE/OUTPATIENT ESTABLISHED LOW MDM 20-29 MIN Reason for Visit and Comments: Follow-up [552670] Hypertension [273713] Coronary Artery Disease [187] Hyperlipidemia [182] Normal [facility] XR lumbar spine AP/LAT/FLX/E XTon 04-23-2023 XR lumbar spine AP/LAT/FLX/EXT [facility] [place] [address] XRay Report Signed Patient: Libra Noonan MR#: [id number] : 1950 Acct:[id number] Age/Sex: 72 / F ADM Date: 04/23/23 Loc: [facility] Room: Type: [facility] Attending Dr: Eric Villanueva MD Copies to: [...] multilevel lumbar degeneration. SOFT TISSUES: Unremarkable BONY MINERALIZATION:Diffuse osteopenia XR/XR lumbar spine AP/LAT/FLX/EXT IMPRESSION: No hypermobility. Degenerative change. Impression dictated by: Jacinto Bolden M.D.04/23/2023 3:43 PM Dictation Location: RADIO-PC-05 Transcribed By: TYLER 04/23/23 1543 Dictated By: Jacinto Bolden DO 04/23/23 1539 Signed By: 04/23/23 1543 Normal [facility] Office Visiton 11-13-2022 Follow-up visit [id number] Libra Noonan Robyn 1950 F Date Provider Department Center 11/13/2022 271-CONNIE, SKYLERAB CARD [facility] Family History Problem Relation Age of Onset Rheumatic fever Mother Heart failure Mother Stroke Mother Other Mother Comments: She is unsure if this was a defibrillator Stroke Father Family Status - Relation Status Age at Mother Father Level of Service:78447 [place] OFFICE/OUTPATIENT ESTABLISHED MOD MDM 30-39 MIN Reason for Visit and Comments: Coronary Artery Disease [187] Hypertension [119116] Hyperlipidemia [182] Normal [facility] CBC AUTO DIFFon 11-06-2022 BASO # 0.0 103/ul Normal 0.0-0.1 [facility] Comment on above: Performed By: #### C BC #### [facility] [address] [place] [address] Dr. Dylan Santana Basophils/100 WBC (Bld) 0.2 % Normal 0.2-2.0 [facility] Comment on above: Performed By: #### C BC #### [facility] [address] [place] [address] Dr. Dylan Santana EO # 0.0 103/ul Normal 0.0-0.7 [facility] Comment on above: Performed By: #### C BC #### [facility] [address] [place] [address] Dr. Dylan Santana Eosinophils/100 WBC (Bld) 0.2 % Critically low 0.9-7.0 [facility] Comment on above: Performed By: #### C BC #### [facility] [address] [place] [address] Dr. Dylan Santana Erythrocyte distribution width (RBC) [Ratio] 12.1 % Normal 11.0-15.0 [facility] Comment on above: Performed By: #### C BC #### [facility] [address] [place] [address] Dr. Dylan Santana Hematocrit (Bld) [Volume fraction] 42.7 % Normal 36.0-48.0 [facility] Comment on above: Performed By: #### C BC #### [facility] [address] [place] [address] Dr. Dylan Santana Hemoglobin (Bld) [Mass/Vol] 13.9 g/dL Normal 12.0-16.0 [facility] Comment on above: Performed By: #### C BC #### [facility] [address] [place] [address] Dr. Dylan Santana IG # 0.05 10e3/ul Critically high 0.00-0.03 [facility] Comment on above: Performed By: #### C BC #### [facility] [address] [place] [address] Dr. Dylan Santana IG % 0.5 % Normal 0.0-0.5 [facility] Comment on above: Performed By: #### C BC #### [facility] [address] [place] [address] Dr. Dylan Santana LYMPH # 2.1 103/ul Normal 1.2-3.8 [facility] Comment on above: Performed By: #### C BC #### [facility] [address] [place] [address] Dr. Dylan Santana Lymphocytes/100 WBC (Bld) 20.8 % Normal 20.5-60.0 [facility] Comment on above: Performed By: #### C BC #### [facility] [address] [place] [address] Dr. Dylan Santana MANUAL DIFF REQ NO Normal [facility] Comment on above: Performed By: #### C BC #### [facility] [address] [place] [address] Dr. Dylan Santana MCH (RBC) [Entitic mass] 30.1 pg Normal 26.7-34.0 [facility] Comment on above: Performed By: #### C BC #### [facility] [address] [place] [address] Dr. Dylan Santana MCHC (RBC) [Mass/Vol] 32.6 g/dL Normal 29.9-35.2 [facility] Comment on above: Performed By: #### C BC #### [facility] [address] [place] [address] Dr. Dylan Santana MCV (RBC) [Entitic vol] 92.4 fL Normal 81.0-99.0 [facility] Comment on above: Performed By: #### C BC #### [facility] [address] [place] [address] Dr. Dylan Santana MONO # 0.4 103/ul Normal 0.3-0.8 [facility] Comment on above: Performed By: #### C BC #### [facility] [address] [place] [address] Dr. Dylan Santana Monocytes/100 WBC (Bld) 3.8 % Normal 1.7-12.0 [facility] Comment on above: Performed By: #### C BC #### [facility] [address] [place] [address] Dr. Dylan Santana NEUT # 7.6 103/ul Critically high 1.4-6.5 [facility] Comment on above: Performed By: #### C BC #### [facility] [address] [place] [address] Dr. Dylan Santana Neutrophils/100 WBC (Bld) 74.5 % Normal 43.0-75.0 [facility] Comment on above: Performed By: #### C BC #### [facility] [address] [place] [address] Dr. Dylan Santana Platelet mean volume (Bld) [Entitic vol] 10.4 fL Normal 9.5-13.5 [facility] Comment on above: Performed By: #### C BC #### [facility] [address] [place] [address] Dr. Dylan Santana PLT 228 103/ul Normal 150-450 [facility] Comment on above: Performed By: #### C BC #### [facility] [address] [place] [address] Dr. Dylan Santana RBC 4.62 106/ul Normal 4.20-5.40 [facility] Comment on above: Performed By: #### C BC #### [facility] [address] [address] [address] Dylan Santana WBC 10.2 103/ul Normal 4.0-11.0 [facility] Comment on above: Performed By: #### C BC #### [facility] [address] [place] [address] Dr. Dylan Santana GLYCOHEMOGLOBIN A1Con 2022 ADA RECOMMENDATION SEE BELOW Normal [facility] Comment on above: Result Comment: ADA RECOMMENDED LIMIT 4.0 - 6.0 ADA THERAPEUTIC TARGET < 7.0 ACTION SUGGESTED > 7.0 Performed By: #### A 1C #### [facility] [address] [place] [address] Dr. Dylan Santana Glucose [Mass/Vol] 214 mg/dL Normal [facility] Comment on above: Performed By: #### A 1C #### [facility] [address] [place] [address] Dr. Dylan Santana HbA1c (Bld) [Mass fraction] 9.1 % Critically high 4.5-6.2 [facility] Comment on above: Performed By: #### A 1C #### [facility] [address] [place] [address] Dr. Dylan Santana LIPID PROFILEon 11-06-2022 CHOL-HDL RATIO NORM SEE BELOW Normal [facility] Comment on above: Result Comment: 3.3 - 4.4 LOW RISK 4.4 - 7.1 AVERAGE RISK 7.1 - 11.0 MODERATE RISK >11.0 HIGH RISK Performed By: #### L IPID #### [facility] [address] [place] [address] Dr. Dylan Santana Cholesterol [Mass/Vol] 142 mg/dL Normal <=200 [facility] Comment on above: Performed By: #### L IPID #### [facility] [address] [place] [address] Dr. Dylan Santana Cholesterol in HDL [Mass/Vol] 74 mg/dL Critically high 40-60 [facility] Comment on above: Performed By: #### L IPID #### [facility] [address] [place], [place] [address] Dr. Dylan Santana Cholesterol in LDL [Mass/Vol] 49.4 mg/dL Normal [facility] Comment on above: Performed By: #### L IPID #### [facility] [address] [id number] Dylan Santana Cholesterol.total/C holesterol in HDL [Mass ratio] 1.9 {ratio} Normal [facility] Comment on above: Performed By: #### L IPID #### [facility] [address] [address] [address] Dylan Santana HDL NORMAL > or = 60 mg/dl - LO W CARDIOVASCULAR RISK <40 mg/dl - HIGH CARDIOVASCULAR RISK Normal [facility] Comment on above: Performed By: #### L IPID #### [facility] [address] [place] [address] Dr. Dylan Santana LDL CALC NORMAL SEE BELOW Normal [facility] Comment on above: Result Comment: <100 mg/dl OPTIMAL 100 - 129 mg/dl NEAR OR ABOVE OPTIMAL 130 - 159 mg/dl BORDERLINE HIGH 160 - 189 mg/dl HIGH >190 mg/dl VERY HIGH Performed By: #### L IPID #### [facility] [address] [address] [address] Dylan Santana Triglyceride [Mass/Vol] 93 mg/dL Normal <=150 [facility] Comment on above: Performed By: #### L IPID #### [facility] [address] [address] [address] Dylan Santana VLDL CALC 18.6 mg/dL Normal [facility] Comment on above: Performed By: #### L IPID #### [facility] [address] [address] [address] Dylan Santana PROF CHEM 8 (BAS METB)on Anion gap [Moles/Vol] 12.8 mmol/L Normal [facility] Comment on above: Performed By: #### C BC #### [facility] [address] [address] [address] Dylan Santana Calcium [Mass/Vol] 9.5 mg/dL Normal 8.5-10.1 [facility] Comment on above: Performed By: #### C BC #### [facility] [address] [place] [address] Dr. Dylan Santana Chloride [Moles/Vol] 105 mmol/L Normal 98-107 [facility] Comment on above: Performed By: #### C BC #### [facility] [address] [address] [address] Dylan Santana CO2 [Moles/Vol] 28.1 mmol/L Normal 21.0-32.0 [facility] Comment on above: Performed By: #### C BC #### [facility] [address] [place] [address] Dr. Dylan Santana Creatinine [Mass/Vol] 1.29 mg/dL Critically high 0.55-1.02 [facility] Comment on above: Performed By: #### C BC #### [facility] [address] [place] [address] Dr. Dylan Santana EGFR-AF SPANISH 49 mL/min/1.73m2 Critically low >=60 [facility] Comment on above: Performed By: #### C BC #### [facility] [address] [place] [address] Dr. Dylan Santana EGFR-NON AF SPANISH 41 mL/min/1.73m2 Critically low >=60 [facility] Comment on above: Performed By: #### C BC #### [facility] [address] [place] [address] Dr. Dylan Santana Glucose [Mass/Vol] 290 mg/dL Critically high 74-106 [facility] Comment on above: Performed By: #### C BC #### [facility] [address] [address] [address] Dylan Santana Potassium [Moles/Vol] 4.9 mmol/L Normal 3.5-5.1 [facility] Comment on above: Performed By: #### C BC #### [facility] [address] [address] [address] Dylan Santana Sodium [Moles/Vol] 141 mmol/L Normal 136-145 [facility] Comment on above: Performed By: #### C BC #### [facility] [address] [address] [address] Dylan Santana Urea nitrogen [Mass/Vol] 30.0 mg/dL Critically high 7.0-18.0 [facility] Comment on above: Performed By: #### C BC #### [facility] [address] [id number] Dylan Santana Urea nitrogen/Creatinine [Mass ratio] 23.3 mg/mg Normal [facility] Comment on above: Performed By: #### C BC #### [facility] [address] [address] [address] Dylan Santana XR knee LT 2Von 11-05-2022 XR knee LT 2V [facility] [place] [address] XRay Report Signed Patient: Libra Noonan MR#: [id number] : 1950 Acct:[id number] Age/Sex: 71 / F ADM Date: 11/05/22 Loc: [facility] Room: Type: [facility] Attending Dr: Zena García NP-C Copies to: [...] PROCESS. Impression dictated by: Gavin Swenson Jr., D.O.11/05/2022 4:16 PM Dictation Location: [place] [address] Transcribed By: [facility] 11/05/22 1616 Dictated By: Gavin Swenson Jr, DO 11/05/22 1615 Signed By: 11/05/22 1616 Normal [facility] XR SHOULDER LT 2V or >on XR [...] ANN MARIE TINEO Date: 2022-07-26 16:54 Normal [facility] XR CHEST 2 Von 06-19-2022 XR CHEST [...] WEI REED Date: 2022-06-19 18:36 Normal [facility] BNPon 06-10-2022 Natriuretic peptide B (Bld) [Mass/Vol] 683.0 pg/mL Normal <=900.0 [facility] Comment on above: Performed By: #### L IPID, TSH, CMP #### [facility] [address] [place] [address] Dr. Dylan Santana CBC AUTO DIFFon 06-10-2022 BASO # 0.0 103/ul Normal 0.0-0.1 [facility] Comment on above: Performed By: #### C BC #### [facility] [address] [place] [address] Dr. Dylan Santana Basophils/100 WBC (Bld) 0.6 % Normal 0.2-2.0 [facility] Comment on above: Performed By: #### C BC #### [facility] [address] [place] [address] Dr. Dylan Santana EO # 0.3 103/ul Normal 0.0-0.7 [facility] Comment on above: Performed By: #### C BC #### [facility] [address] [place] [address] Dr. Dylan Santana Eosinophils/100 WBC (Bld) 4.9 % Normal 0.9-7.0 [facility] Comment on above: Performed By: #### C BC #### [facility] [address] [place] [address] Dr. Dylan Santana Erythrocyte distribution width (RBC) [Ratio] 12.2 % Normal 11.0-15.0 [facility] Comment on above: Performed By: #### C BC #### [facility] [address] [place] [address] Dr. Dylan Santana Hematocrit (Bld) [Volume fraction] 36.2 % Normal 36.0-48.0 [facility] Comment on above: Performed By: #### C BC #### [facility] [address] [place] [address] Dr. Dylan Santana Hemoglobin (Bld) [Mass/Vol] 11.9 g/dL Critically low 12.0-16.0 [facility] Comment on above: Performed By: #### C BC #### [facility] [address] [place] [address] Dr. Dylan Santana IG # 0.02 10e3/ul Normal 0.00-0.03 [facility] Comment on above: Performed By: #### C BC #### [facility] [address] [place] [address] Dr. Dylan Santana IG % 0.4 % Normal 0.0-0.5 [facility] Comment on above: Performed By: #### C BC #### [facility] [address] [place] [address] Dr. Dylan Santana LYMPH # 1.8 103/ul Normal 1.2-3.8 [facility] Comment on above: Performed By: #### C BC #### [facility] [address] [place] [address] Dr. Dylan Santana Lymphocytes/100 WBC (Bld) 34.8 % Normal 20.5-60.0 [facility] Comment on above: Performed By: #### C BC #### [facility] [address] [place] [address] Dr. Dylan Santana MANUAL DIFF REQ NO Normal [facility] Comment on above: Performed By: #### C BC #### [facility] [address] [place] [address] Dr. Dylan Santana MCH (RBC) [Entitic mass] 30.2 pg Normal 26.7-34.0 [facility] Comment on above: Performed By: #### C BC #### [facility] [address] [place] [address] Dr. Dylan Santana MCHC (RBC) [Mass/Vol] 32.9 g/dL Normal 29.9-35.2 [facility] Comment on above: Performed By: #### C BC #### [facility] [address] [place] [address] Dr. Dylan Santana MCV (RBC) [Entitic vol] 91.9 fL Normal 81.0-99.0 [facility] Comment on above: Performed By: #### C BC #### [facility] [address] [place] [address] Dr. Dylan Santana MONO # 0.6 103/ul Normal 0.3-0.8 [facility] Comment on above: Performed By: #### C BC #### [facility] [address] [place] [address] Dr. Dylan Santana Monocytes/100 WBC (Bld) 12.5 % Critically high 1.7-12.0 [facility] Comment on above: Performed By: #### C BC #### [facility] [address] [place] [address] Dr. Dylan Santana NEUT # 2.4 103/ul Normal 1.4-6.5 [facility] Comment on above: Performed By: #### C BC #### [facility] [address] [place] [address] Dr. Dylan Santana Neutrophils/100 WBC (Bld) 46.8 % Normal 43.0-75.0 [facility] Comment on above: Performed By: #### C BC #### [facility] [address] [place] [address] Dr. Dylan Santana Platelet mean volume (Bld) [Entitic vol] 10.1 fL Normal 9.5-13.5 [facility] Comment on above: Performed By: #### C BC #### [facility] [address] [place] [address] Dr. Dylan Santana PLT 159 103/ul Normal 150-450 [facility] Comment on above: Performed By: #### C BC #### [facility] [address] [place] [address] Dr. Dylan Santana RBC 3.94 106/ul Critically low 4.20-5.40 [facility] Comment on above: Performed By: #### C BC #### [facility] [address] [place] [address] Dr. Dylan Santana WBC 5.1 103/ul Normal 4.0-11.0 [facility] Comment on above: Performed By: #### C BC #### [facility] [address] [place] [address] Dr. Dylan Santana BASO # 0.0 103/ul Normal 0.0-0.1 [facility] Comment on above: Performed By: #### C BC #### [facility] [address] [place] [address] Dr. Dylan Santana Basophils/100 WBC (Bld) 0.6 % Normal 0.2-2.0 [facility] Comment on above: Performed By: #### C BC #### [facility] [address] [place] [address] Dr. Dylan Santana EO # 0.3 103/ul Normal 0.0-0.7 [facility] Comment on above: Performed By: #### C BC #### [facility] [address] [place] [address] Dr. Dylan Santana Eosinophils/100 WBC (Bld) 5.0 % Normal 0.9-7.0 [facility] Comment on above: Performed By: #### C BC #### [facility] [address] [place] [address] Dr. Dylan Santana Erythrocyte distribution width (RBC) [Ratio] 12.1 % Normal 11.0-15.0 [facility] Comment on above: Performed By: #### C BC #### [facility] [address] [place] [address] Dr. Dylan Santana Hematocrit (Bld) [Volume fraction] 39.3 % Normal 36.0-48.0 [facility] Comment on above: Performed By: #### C BC #### [facility] [address] [place] [address] Dr. Dylan Santana Hemoglobin (Bld) [Mass/Vol] 12.9 g/dL Normal 12.0-16.0 [facility] Comment on above: Performed By: #### C BC #### [facility] Laboratory [address] [place] [address] Dr. Dylan Santana IG # 0.02 10e3/ul Normal 0.00-0.03 [facility] Comment on above: Performed By: #### C BC #### [facility] Laboratory [address] [place] [address] Dr. Dylan Santana IG % 0.4 % Normal 0.0-0.5 [facility] Comment on above: Performed By: #### C BC #### [facility] Laboratory [address] [place] [address] Dr. Dylan Santana LYMPH # 1.4 103/ul Normal 1.2-3.8 [facility] Comment on above: Performed By: #### C BC #### [facility] Laboratory [address] [place] [address] Dr. Dylan Santana Lymphocytes/100 WBC (Bld) 26.9 % Normal 20.5-60.0 [facility] Comment on above: Performed By: #### C BC #### [facility] Laboratory [address] [place] [address] Dr. Dylan Santana MANUAL DIFF REQ NO Normal [facility] Comment on above: Performed By: #### C BC #### [facility] Laboratory [address] [place] [address] Dr. Dylan Santana MCH (RBC) [Entitic mass] 30.2 pg Normal 26.7-34.0 [facility] Comment on above: Performed By: #### C BC #### [facility] Laboratory [address] [place] [address] Dr. Dylan Santana MCHC (RBC) [Mass/Vol] 32.8 g/dL Normal 29.9-35.2 [facility] Comment on above: Performed By: #### C BC #### [facility] Laboratory [address] [place] [address] Dr. Dylan Santana MCV (RBC) [Entitic vol] 92.0 fL Normal 81.0-99.0 [facility] Comment on above: Performed By: #### C BC #### [facility] Laboratory [address] [place] [address] Dr. Dylan Santana MONO # 0.5 103/ul Normal 0.3-0.8 [facility] Comment on above: Performed By: #### C BC #### [facility] Laboratory [address] [place] [address] Dr. Dylan Santana Monocytes/100 WBC (Bld) 10.1 % Normal 1.7-12.0 [facility] Comment on above: Performed By: #### C BC #### [facility] Laboratory [address] [place] [address] Dr. Dylan Santana NEUT # 3.0 103/ul Normal 1.4-6.5 [facility] Comment on above: Performed By: #### C BC #### [facility] Laboratory [address] [place] [address] Dr. Dylan Santana Neutrophils/100 WBC (Bld) 57.0 % Normal 43.0-75.0 [facility] Comment on above: Performed By: #### C BC #### [facility] Laboratory [address] [place] [address] Dr. Dylan Santana Platelet mean volume (Bld) [Entitic vol] 10.3 fL Normal 9.5-13.5 [facility] Comment on above: Performed By: #### C BC #### [facility] Laboratory [address] [address] [address] Dylan Santana PLT 182 103/ul Normal 150-450 [facility] Comment on above: Performed By: #### C BC #### [facility] Laboratory [address] [address] [address] Dylan Santana RBC 4.27 106/ul Normal 4.20-5.40 [facility] Comment on above: Performed By: #### C BC #### [facility] Laboratory [address] [address] [address] Dylan Santana WBC 5.2 103/ul Normal 4.0-11.0 [facility] Comment on above: Performed By: #### C BC #### [facility] Laboratory [address] [address] HEAD WO CONon [...] YONIS PACHECO Date: 2022-06-10 04:35 Normal [facility] Covid-19 PCR (CVDTBH)on 05-24 SARS-CoV-2 (COVID-19) RNA LUIS+probe Ql (Unsp spec) Not detected Normal NOT DETECTED [facility] Comment on above: Result Comment: When diagnostic [...] for this test is supported by the [place] of Health and Human Service's declaration that [...] By: #### L IPID, TSH, CMP #### [facility] Laboratory [address] [place] [address] Dr. Dylan Santana POINT OF CARE GLUCOSEon 05-24 Glucose [Mass/Vol] 169 mg/dL Critically high 74-106 [facility] Comment on above: Performed By: #### C BC #### [facility] Laboratory [address] [place] [address] Dr. Dylan Santana PROF 14(COMP METB)on 022 Albumin [Mass/Vol] 3.5 g/dL Normal 3.4-5.0 [facility] Comment on above: Performed By: #### C MP, HSTROPN #### [facility] Laboratory [address] [place] [address] Dr. Dylan Santana Albumin/Globulin [Mass ratio] 0.9 {ratio} Normal [facility] Comment on above: Performed By: #### C MP, HSTROPN #### [facility] Laboratory [address] [place] [address] Dr. Dylan Santana ALP [Catalytic activity/Vol] 197 U/L Critically high 46-116 [facility] Comment on above: Performed By: #### C RAUL, HSTROPN #### [facility] Laboratory [address] [place] [address] Dr. Dylan Santana ALT [Catalytic activity/Vol] 89 U/L Critically high 14-59 [facility] Comment on above: Performed By: #### C MP, HSTROPN #### [facility] [address] [place] [address] Dr. Dylan Santana Anion gap [Moles/Vol] 10.1 mmol/L Normal [facility] Comment on above: Performed By: #### C RAUL, HSTROPN #### [facility] [address] [place] [address] Dr. Dylan Santana AST [Catalytic activity/Vol] 50 U/L Critically high 15-37 [facility] Comment on above: Performed By: #### C RAUL, HSTROPN #### [facility] [address] [place] [address] Dr. Dylan Santana Bilirubin [Mass/Vol] 0.4 mg/dL Normal 0.2-1.0 [facility] Comment on above: Performed By: #### C RAUL, HSTROPN #### [facility] Laboratory [address] [place] [address] Dr. Dylan Santana Calcium [Mass/Vol] 9.2 mg/dL Normal 8.5-10.1 [facility] Comment on above: Performed By: #### C RAUL, HSTROPN #### [facility] [address] [place] [address] Dr. Dylan Santana Chloride [Moles/Vol] 101 mmol/L Normal 98-107 [facility] Comment on above: Performed By: #### C RAUL, HSTROPN #### [facility] Laboratory [address] [place] [address] Dr. Dylan Santana CO2 [Moles/Vol] 28.1 mmol/L Normal 21.0-32.0 [facility] Comment on above: Performed By: #### C RAUL, HSTROPN #### [facility] [address] [address] [address] Dylan Santana Creatinine [Mass/Vol] 1.29 mg/dL Critically high 0.55-1.02 [facility] Comment on above: Performed By: #### C MP, HSTROPN #### [facility] Laboratory [address] [address] [address] Dylan Santana EGFR-AF SPANISH 49 mL/min/1.73m2 Critically low >=60 [facility] Comment on above: Performed By: #### C MP, HSTROPN #### [facility] [address] [address] [address] Dylan Santana EGFR-NON AF SPANISH 41 mL/min/1.73m2 Critically low >=60 [facility] Comment on above: Performed By: #### C MP, HSTROPN #### [facility] [address] [place] [address] Dr. Dylan Santana Globulin (S) [Mass/Vol] 3.9 g/dL Normal [facility] Comment on above: Performed By: #### C MP, HSTROPN #### [facility] [address] [address] [address] Dylan Santana Glucose [Mass/Vol] 231 mg/dL Critically high 74-106 [facility] Comment on above: Performed By: #### C MP, HSTROPN #### [facility] [address] [address] [address] Dylan Santana Potassium [Moles/Vol] 4.2 mmol/L Normal 3.5-5.1 [facility] Comment on above: Performed By: #### C MP, HSTROPN #### [facility] [address] [address] [address] Dylan Santana Protein [Mass/Vol] 7.4 g/dL Normal 6.4-8.2 [facility] Comment on above: Performed By: #### C MP, HSTROPN #### [facility] [address] [address] [address] Dylan Santana Sodium [Moles/Vol] 135 mmol/L Critically low 136-145 [facility] Comment on above: Performed By: #### C MP, HSTROPN #### [facility] [address] [address] [address] Dylan Santana Urea nitrogen [Mass/Vol] 21.0 mg/dL Critically high 7.0-18.0 [facility] Comment on above: Performed By: #### C MP, HSTROPN #### [facility] [address] [address] [address] Dylan Santana Urea nitrogen/Creatinine [Mass ratio] 16.3 mg/mg Normal [facility] Comment on above: Performed By: #### C MP, HSTROPN #### [facility] Laboratory [address] [place] [address] Dr. Dylan Santana PROF CHEM 8 (BAS METB)on Anion gap [Moles/Vol] 9.2 mmol/L Normal [facility] Comment on above: Performed By: #### L IPID, TSH, CMP #### [facility] [address] [place] [address] Dr. Dylan Santana Calcium [Mass/Vol] 8.9 mg/dL Normal 8.5-10.1 [facility] Comment on above: Performed By: #### L IPID, TSH, CMP #### [facility] [address] [place] [address] Dr. Dylan Santana Chloride [Moles/Vol] 104 mmol/L Normal 98-107 [facility] Comment on above: Performed By: #### L IPID, TSH, CMP #### [facility] [address] [place] [address] Dr. Dylan Santana CO2 [Moles/Vol] 27.8 mmol/L Normal 21.0-32.0 [facility] Comment on above: Performed By: #### L IPID, TSH, CMP #### [facility] [address] [place] [address] Dr. Dylan Santana Creatinine [Mass/Vol] 1.14 mg/dL Critically high 0.55-1.02 [facility] Comment on above: Performed By: #### L IPID, TSH, CMP #### [facility] [address] [address] [address] Dylan Santana EGFR-AF SPANISH 57 mL/min/1.73m2 Critically low >=60 [facility] Comment on above: Performed By: #### L IPID, TSH, CMP #### [facility] [address] [address] [address] Dylan Santana EGFR-NON AF SPANISH 47 mL/min/1.73m2 Critically low >=60 [facility] Comment on above: Performed By: #### L IPID, TSH, CMP #### [facility] [address] [address] [address] Dylan Santana Glucose [Mass/Vol] 176 mg/dL Critically high 74-106 [facility] Comment on above: Performed By: #### L IPID, TSH, CMP #### [facility] [address] [place] [address] Dr. Dylan Santana Potassium [Moles/Vol] 4.0 mmol/L Normal 3.5-5.1 [facility] Comment on above: Performed By: #### L IPID, TSH, CMP #### [facility] [address] [address] [address] Dylan Santana Sodium [Moles/Vol] 137 mmol/L Normal 136-145 [facility] Comment on above: Performed By: #### L IPID, TSH, CMP #### [facility] [address] [address] [address] Dylan Santana Urea nitrogen [Mass/Vol] 21.0 mg/dL Critically high 7.0-18.0 [facility] Comment on above: Performed By: #### L IPID, TSH, CMP #### [facility] [address] [place] [address] Dr. Dylan Santana Urea nitrogen/Creatinine [Mass ratio] 18.4 mg/mg Normal [facility] Comment on above: Performed By: #### L IPID, TSH, CMP #### [facility] [address] [address] [address] Dylan Santana RESPIRATORY PANEL PLUSon Adenovirus Not detected Normal NOT DETECTED [facility] Comment on above: Performed By: #### C BC #### [facility] Laboratory [address] [place] [address] Dr. Dylan Mccurdy Parapertusis Not detected Normal NOT DETECTED [facility] Comment on above: Performed By: #### C BC #### [facility] [address] [place] [address] Dr. Dylan Mccurdy Pertussis Not detected Normal NOT DETECTED [facility] Comment on above: Performed By: #### C BC #### [facility] [address] [place] [address] Dr. Dylan Santana Chlamydia Pneumoniae Not detected Normal NOT DETECTED [facility] Comment on above: Performed By: #### C BC #### [facility] [address] [place] [address] Dr. Dylan Santana Coronavirus 229E Not detected Normal NOT DETECTED [facility] Comment on above: Performed By: #### C BC #### [facility] [address] [place] [address] Dr. Dylan Santana Coronavirus HKU1 Not detected Normal NOT DETECTED [facility] Comment on above: Performed By: #### C BC #### [facility] [address] [place] [address] Dr. Dylan Santana Coronavirus NL63 Not detected Normal NOT DETECTED [facility] Comment on above: Performed By: #### C BC #### [facility] [address] [place] [address] Dr. Dylan Santana Coronavirus OC43 Not detected Normal NOT DETECTED [facility] Comment on above: Performed By: #### C BC #### [facility] [address] [place] [address] Dr. Dylan Santana Influenza A H1 2009 Not detected Normal NOT DETECTED [facility] Comment on above: Performed By: #### C BC #### [facility] [address] [place] [address] Dr. Dylan Santana Influenza A H3 Not detected Normal NOT DETECTED [facility] Comment on above: Performed By: #### C BC #### [facility] [address] [address] [address] Dylan Santana Influenza B Not detected Normal NOT DETECTED [facility] Comment on above: Performed By: #### C BC #### [facility] Laboratory [address] [place] [address] Dr. Dylan Santana Metapneumovirus Not detected Normal NOT DETECTED [facility] Comment on above: Performed By: #### C BC #### [facility] [address] [place] [address] Dr. Dylan Santana Mycoplas. Pneumoniae Not detected Normal NOT DETECTED [facility] Comment on above: Performed By: #### C BC #### [facility] [address] [place] [address] Dr. Dylan Santana Parainfluenza 1 Not detected Normal NOT DETECTED [facility] Comment on above: Performed By: #### C BC #### [facility] [address] [place] [address] Dr. Dylan Santana Parainfluenza 2 Not detected Normal NOT DETECTED [facility] Comment on above: Performed By: #### C BC #### [facility] [address] [place] [address] Dr. Dylan Santana Parainfluenza 3 Not detected Normal NOT DETECTED [facility] Comment on above: Performed By: #### C BC #### [facility] [address] [place] [address] Dr. Dylan Santana Parainfluenza 4 Not detected Normal NOT DETECTED [facility] Comment on above: Performed By: #### C BC #### [facility] [address] [place] [address] Dr. Dylan Santana Rhino/Enterovirus Not detected Normal NOT DETECTED [facility] Comment on above: Performed By: #### C BC #### [facility] [address] [place] [address] Dr. Dylan Santana RP2 Header 1 RESPIRATORY PANEL: VIRUSES Normal [facility] Comment on above: Performed By: #### C BC #### [facility] [address] [place] [address] Dr. Dylan Santana RP2 Header 2 RESPIRATORY PANEL: BACTERIA Normal [facility] Comment on above: Performed By: #### C BC #### [facility] [address] [place] [address] Dr. Dylan Santana RSV Detected Critically abnormal NOT DETECTED [facility] Comment on above: Performed By: #### C BC #### [facility] [address] [address] [address] Dylan Santana SARS-CoV-2 (COVID-19) RNA LUIS+probe Ql (Unsp spec) Not detected Normal NOT DETECTED [facility] Comment on above: Performed By: #### C BC #### [facility] Laboratory [address] [place] [address] Dr. Dylan Santana TROPONIN, HIGH SENSITIVITYon 06-10-2022 HSTROP 18.5 pg/mL Normal 4.0-51.3 [facility] Comment on above: Result Comment: CUT- OFF POINTS HAVE BEEN ESTABLISHED BASED ON THE FOURTH UNIVERSAL DEFINITIONS OF MYOCARDIAL INFARCTION. THE UPPER REFERENCE LIMIT (URL) OF TROPONIN, DEFINED THE 99TH PERCENTILE OF cTnI DISTRIBUTION IN A REFERENCE POPULATION, HAS BEEN CONFIRMED THE DECISION THRESHOLD FOR WI DIAGNOSIS. Performed By: #### L IPID, TSH, CMP #### [facility] [address] [place] [address] Dr. Dylan Santana HSTROP 18.8 pg/mL Normal 4.0-51.3 [facility] Comment on above: Result Comment: CUT- OFF POINTS HAVE BEEN ESTABLISHED BASED ON THE FOURTH UNIVERSAL DEFINITIONS OF MYOCARDIAL INFARCTION. THE UPPER REFERENCE LIMIT (URL) OF TROPONIN, DEFINED THE 99TH PERCENTILE OF cTnI DISTRIBUTION IN A REFERENCE POPULATION, HAS BEEN CONFIRMED THE DECISION THRESHOLD FOR [place] DIAGNOSIS. Performed By: #### C MP, HSTROPN #### [facility] [address] [place] [address] Dr. Dylan Santana XR CHEST 1 Von [...] by: YONIS PACHECO Date: 2022-06-10 02:13 Normal [facility] ECHOCARDIO M/2D COMPLETEon 1 07-08-2021 ECHOCARDIO M/2D COMPLETE Patient: LIBRA NOONAN Exam Date: 05/08/2022 : 1950 Gender:F Ordering : [facility] Admission #: [id number] Family : Order #: [id number] CLICK HERE TO VIEW EXAM ECHOCARDIOGRAM REPORT [...] Capellan M.D. on 05/09/2022 at 20:11 Normal [facility] NM STRESS/REST MULTIon 03-08 NM STRESS/REST MULTI Patient: ERICLIBRA Exam Date: 03/08/2022 : 1950 Gender:F Ordering : DR GARRISON BELL M.D. Admission #: [id number] Family : Order #: [id number] CLICK HERE TO VIEW EXAM RADIOLOGY REPORT [...] DEFECT: LOCATION: Basal anterior. Mid-anterior. Apical anterior. [place]. SIZE: Medium (3-4 segments). SEVERITY: Moderate. TYPE: [...] MD on 03/09/2022 at 11:54 Normal [facility] CBC AUTO DIFFon 01-24-2022 BASO # 0.0 103/ul Normal 0.0-0.1 [facility] Comment on above: Performed By: #### C BC #### [facility] Laboratory [address] [address] [address] Dylan Santana Basophils/100 WBC (Bld) 0.5 % Normal 0.2-2.0 [facility] Comment on above: Performed By: #### C BC #### [facility] [address] [place], [place] [address] Dr. Dylan Santana EO # 0.2 103/ul Normal 0.0-0.7 [facility] Comment on above: Performed By: #### C BC #### [facility] Laboratory [address] [place] [address] Dr. Dylan Santana Eosinophils/100 WBC (Bld) 2.8 % Normal 0.9-7.0 [facility] Comment on above: Performed By: #### C BC #### [facility] [address] [place] [address] Dr. Dylan Santana Erythrocyte distribution width (RBC) [Ratio] 13.0 % Normal 11.0-15.0 [facility] Comment on above: Performed By: #### C BC #### [facility] [address] [place] [address] Dr. Dylan Santana Hematocrit (Bld) [Volume fraction] 40.8 % Normal 36.0-48.0 [facility] Comment on above: Performed By: #### C BC #### [facility] [address] [place] [address] Dr. Dylan Santana Hemoglobin (Bld) [Mass/Vol] 13.0 g/dL Normal 12.0-16.0 [facility] Comment on above: Performed By: #### C BC #### [facility] [address] [place] [address] Dr. Dylan Santana IG # 0.04 10e3/ul Critically high 0.00-0.03 [facility] Comment on above: Performed By: #### C BC #### [facility] [address] [place] [address] Dr. Dylan Santana IG % 0.5 % Normal 0.0-0.5 [facility] Comment on above: Performed By: #### C BC #### [facility] [address] [place] [address] Dr. Dylan Santana LYMPH # 2.7 103/ul Normal 1.2-3.8 [facility] Comment on above: Performed By: #### C BC #### [facility] [address] [place] [address] Dr. Dylan Santana Lymphocytes/100 WBC (Bld) 34.3 % Normal 20.5-60.0 [facility] Comment on above: Performed By: #### C BC #### [facility] [address] [place] [address] Dr. Dylan Santana MANUAL DIFF REQ NO Normal [facility] Comment on above: Performed By: #### C BC #### [facility] [address] [place] [address] Dr. Dylan Santana MCH (RBC) [Entitic mass] 30.0 pg Normal 26.7-34.0 [facility] Comment on above: Performed By: #### C BC #### [facility] [address] [place] [address] Dr. Dylan Santana MCHC (RBC) [Mass/Vol] 31.9 g/dL Normal 29.9-35.2 [facility] Comment on above: Performed By: #### C BC #### [facility] [address] [place] [address] Dr. Dylan Santana MCV (RBC) [Entitic vol] 94.0 fL Normal 81.0-99.0 [facility] Comment on above: Performed By: #### C BC #### [facility] [address] [place] [address] Dr. Dylan Santana MONO # 0.4 103/ul Normal 0.3-0.8 [facility] Comment on above: Performed By: #### C BC #### [facility] [address] [place], [place] [address] Dr. Dylan Santana Monocytes/100 WBC (Bld) 5.1 % Normal 1.7-12.0 [facility] Comment on above: Performed By: #### C BC #### [facility] [address] [place] [address] Dr. Dylan Santana NEUT # 4.4 103/ul Normal 1.4-6.5 [facility] Comment on above: Performed By: #### C BC #### [facility] [address] [place] [address] Dr. Dylan Santana Neutrophils/100 WBC (Bld) 56.8 % Normal 43.0-75.0 [facility] Comment on above: Performed By: #### C BC #### [facility] [address] [place] [address] Dr. Dylan Santana Platelet mean volume (Bld) [Entitic vol] 10.7 fL Normal 9.5-13.5 [facility] Comment on above: Performed By: #### C BC #### [facility] [address] [place] [address] Dr. Dylan Santana PLT 212 103/ul Normal 150-450 [facility] Comment on above: Performed By: #### C BC #### [facility] [address] [place] [address] Dr. Dylan Santana RBC 4.34 106/ul Normal 4.20-5.40 [facility] Comment on above: Performed By: #### C BC #### [facility] [address] [place] [address] Dr. Dylan Santana WBC 7.8 103/ul Normal 4.0-11.0 [facility] Comment on above: Performed By: #### C BC #### [facility] [address] [place] [address] Dr. Dylan Santana FREE T4on 01-24-2022 Free T4 [Mass/Vol] 1.02 ng/dL Normal 0.76-1.46 [facility] Comment on above: Performed By: #### F T4 #### [facility] [address] [place] [address] Dr. Dylan Santana GLYCOHEMOGLOBIN A1Con 2021 ADA RECOMMENDATION SEE BELOW Normal [facility] Comment on above: Result Comment: ADA RECOMMENDED LIMIT 4.0 - 6.0 ADA THERAPEUTIC TARGET < 7.0 ACTION SUGGESTED > 7.0 Performed By: #### C BC #### [facility] [address] [place] [address] Dr. Dylan Santana Glucose [Mass/Vol] 189 mg/dL Normal [facility] Comment on above: Performed By: #### C BC #### [facility] [address] [place] [address] Dr. Dylan Santana HbA1c (Bld) [Mass fraction] 8.2 % Critically high 4.5-6.2 [facility] Comment on above: Performed By: #### C BC #### [facility] [address] [address] [address] Dylan Santana LIPID PROFILEon 01-24-2022 CHOL-HDL RATIO NORM SEE BELOW Normal [facility] Comment on above: Result Comment: 3.3 - 4.4 LOW RISK 4.4 - 7.1 AVERAGE RISK 7.1 - 11.0 MODERATE RISK >11.0 HIGH RISK Performed By: #### L IPID, TSH, CMP #### [facility] [address] [address] [address] Dylan Santana Cholesterol [Mass/Vol] 235 mg/dL Critically high <=200 [facility] Comment on above: Performed By: #### L IPID, TSH, CMP #### [facility] [address] [address] [address] Dylan Santana Cholesterol in HDL [Mass/Vol] 64 mg/dL Critically high 40-60 [facility] Comment on above: Performed By: #### L IPID, TSH, CMP #### [facility] [address] [address] [address] Dylan Santana Cholesterol in LDL [Mass/Vol] 139.8 mg/dL Normal [facility] Comment on above: Performed By: #### L IPID, TSH, CMP #### [facility] [address] [address] [address] Dylan Santana Cholesterol.total/C holesterol in HDL [Mass ratio] 3.7 {ratio} Normal [facility] Comment on above: Performed By: #### L IPID, TSH, CMP #### [facility] [address] [address] [address] Dylan Santana HDL NORMAL > or = 60 mg/dl - LO W CARDIOVASCULAR RISK <40 mg/dl - HIGH CARDIOVASCULAR RISK Normal [facility] Comment on above: Performed By: #### L IPID, TSH, CMP #### [facility] [address] [address] [address] Dylan Santana LDL CALC NORMAL SEE BELOW Normal [facility] Comment on above: Result Comment: <100 mg/dl OPTIMAL 100 - 129 mg/dl NEAR OR ABOVE OPTIMAL 130 - 159 mg/dl BORDERLINE HIGH 160 - 189 mg/dl HIGH >190 mg/dl VERY HIGH Performed By: #### L IPID, TSH, CMP #### [facility] [address] [place] [address] Dr. Dylan Santana Triglyceride [Mass/Vol] 156 mg/dL Critically high <=150 [facility] Comment on above: Performed By: #### L IPID, TSH, CMP #### [facility] [address] [place] [address] Dr. Dylan Santana VLDL CALC 31.2 mg/dL Normal [facility] Comment on above: Performed By: #### L IPID, TSH, CMP #### [facility] [address] [place] [address] Dr. Dylan Santana PROF 14(COMP METB)on 022 Albumin [Mass/Vol] 3.3 g/dL Critically low 3.4-5.0 Th [facility] Comment on above: Performed By: #### L IPID, TSH, CMP #### [facility] [address] [place] [address] Dr. Dylan Santana Albumin/Globulin [Mass ratio] 0.9 {ratio} Normal [facility] Comment on above: Performed By: #### L IPID, TSH, CMP #### [facility] [address] [place] [address] Dr. Dylan Santana ALP [Catalytic activity/Vol] 109 U/L Normal 46-116 [facility] Comment on above: Performed By: #### L IPID, TSH, CMP #### [facility] [address] [place] [address] Dr. Dylan Santana ALT [Catalytic activity/Vol] 25 U/L Normal 14-59 [facility] Comment on above: Performed By: #### L IPID, TSH, CMP #### [facility] [address] [place] [address] Dr. Dylan Santana Anion gap [Moles/Vol] 14.7 mmol/L Normal [facility] Comment on above: Performed By: #### L IPID, TSH, CMP #### [facility] [address] [address] [address] Dylan Santana AST [Catalytic activity/Vol] 12 U/L Critically low 15-37 [facility] Comment on above: Performed By: #### L IPID, TSH, CMP #### [facility] [address] [place] [address] Dr. Dylan Santana Bilirubin [Mass/Vol] 0.6 mg/dL Normal 0.2-1.0 [facility] Comment on above: Performed By: #### L IPID, TSH, CMP #### [facility] [address] [place] [address] Dr. Dylan Santana Calcium [Mass/Vol] 8.8 mg/dL Normal 8.5-10.1 [facility] Comment on above: Performed By: #### L IPID, TSH, CMP #### [facility] [address] [place] [address] Dr. Dylan Santana Chloride [Moles/Vol] 102 mmol/L Normal 98-107 [facility] Comment on above: Performed By: #### L IPID, TSH, CMP #### [facility] [address] [place] [address] Dr. Dylan Santana CO2 [Moles/Vol] 27.5 mmol/L Normal 21.0-32.0 [facility] Comment on above: Performed By: #### L IPID, TSH, CMP #### [facility] [address] [place] [address] Dr. Dylan Santana Creatinine [Mass/Vol] 1.14 mg/dL Critically high 0.55-1.02 [facility] Comment on above: Performed By: #### L IPID, TSH, CMP #### [facility] [address] [place] [address] Dr. Dylan Santana EGFR-AF SPANISH 57 mL/min/1.73m2 Critically low >=60 [facility] Comment on above: Performed By: #### L IPID, TSH, CMP #### [facility] [address] [place] [address] Dr. Dylan Santana EGFR-NON AF SPANISH 47 mL/min/1.73m2 Critically low >=60 [facility] Comment on above: Performed By: #### L IPID, TSH, CMP #### [facility] [address] [address] [address] Dylan Santana Globulin (S) [Mass/Vol] 3.7 g/dL Normal [facility] Comment on above: Performed By: #### L IPID, TSH, CMP #### [facility] [address] [address] [address] Dylan Santana Glucose [Mass/Vol] 249 mg/dL Critically high 74-106 [facility] Comment on above: Performed By: #### L IPID, TSH, CMP #### [facility] [address] [address] [address] Dylan Santana Potassium [Moles/Vol] 4.2 mmol/L Normal 3.5-5.1 [facility] Comment on above: Performed By: #### L IPID, TSH, CMP #### [facility] [address] [place] [address] Dr. Dylan Santana Protein [Mass/Vol] 7.0 g/dL Normal 6.4-8.2 [facility] Comment on above: Performed By: #### L IPID, TSH, CMP #### [facility] [address] [place] [address] Dr. Dylan Santana Sodium [Moles/Vol] 140 mmol/L Normal 136-145 [facility] Comment on above: Performed By: #### L IPID, TSH, CMP #### [facility] [address] [address] [address] Dylan Santana Urea nitrogen [Mass/Vol] 20.0 mg/dL Critically high 7.0-18.0 [facility] Comment on above: Performed By: #### L IPID, TSH, CMP #### [facility] [address] [address] [address] Dylan Santana Urea nitrogen/Creatinine [Mass ratio] 17.5 mg/mg Normal [facility] Comment on above: Performed By: #### L IPID, TSH, CMP #### [facility] [address] [place], [place] [address] Dr. Dylan Santana TSHon 01-24-2022 TSH 3.673 uIU/mL Normal 0.358-3.740 [facility] Comment on above: Performed By: #### L IPID, TSH, CMP #### [facility] [id number] Dylan Santana COVID Quick Testingon 2021 Result Negative [employer] Other [facility] 09-22-2021 Lab Reports [id number] 06 [id number] CD:127 Normal [facility] Vital Signs Date Time Vital Sign Value Performing Clinician Facility 10-15-2023 10:57-0400 Diastolic blood pressure 82 mm[Hg] MD Garrison Bell Work Phone: [facility] 10-15-2023 10:57-0400 Heart rate 81 /min MD Garrison Bell Work Phone: [facility] 10-15-2023 10:57-0400 Respiratory rate 16 /min MD Garrison Bell Work Phone: [facility] 10-15-2023 10:57-0400 SaO2% (BldA) [Mass fraction] 97 % MD Garrison Bell Work Phone: [facility] 10-15-2023 10:57-0400 Systolic blood pressure 147 mm[Hg] MD Garrison Bell Work Phone: [facility] 10-15-2023 10:16-0400 Inhaled oxygen flow rate 3 L/min MD Garrison Bell Work Phone: [facility] 10-15-2023 09:44-0400 Body height 157.48 cm MD Garrison Bell Work Phone: [facility] 10-15-2023 09:44-0400 Body weight 141.52 kg MD Garrison Bell Work Phone: [facility] 09-04-2023 11:24-0400 Body height 160.02 cm [facility] 09-04-2023 11:24-0400 Body mass index (BMI) [Ratio] 57 kg/m2 [facility] 09-04-2023 11:24-0400 Body weight 146.11 kg [facility] 09-04-2023 11:24-0400 Diastolic blood pressure 97 mm[Hg] [facility] 09-04-2023 11:24-0400 Heart rate 86 /min [facility] 09-04-2023 11:24-0400 SaO2% (BldA) [Mass fraction] 98 % [facility] 09-04-2023 11:24-0400 Systolic blood pressure 166 mm[Hg] [facility] 06-05-2023 11:30-0500 Body height 160.02 cm Garrison Bell Other [facility] Other 06-05-2023 11:30-0500 Body mass index (BMI) [Ratio] 55.62 kg/m2 Garrison Bell Other [employer] Other 06-05-2023 11:30-0500 Body weight 142.43 kg Garrison Bell Other [facility] [employer] [facility] Other 06-05-2023 11:30-0500 Diastolic blood pressure 78 mm[Hg] Garrison Bell Other [employer] [employer] Other 06-05-2023 11:30-0500 SaO2% (BldA) [Mass fraction] 98 % Garrison Bell Other [employer] Other 06-05-2023 11:30-0500 Systolic blood pressure 132 mm[Hg] Garrison Bell Other [employer] Other 05-28-2023 11:00-0500 Diastolic blood pressure 97 mm[Hg] MD Garrison Bell Work Phone: [facility] 05-28-2023 11:00-0500 Heart rate 79 /min MD Garrison Bell Work Phone: [facility] 05-28-2023 11:00-0500 Respiratory rate 16 /min MD Garrison Bell Work Phone: [facility] 05-28-2023 11:00-0500 SaO2% (BldA) [Mass fraction] 98 % MD Garrison Bell Work Phone: [facility] 05-28-2023 11:00-0500 Systolic blood pressure 173 mm[Hg] MD Garrison Bell Work Phone: [facility] 05-28-2023 10:15-0500 Inhaled oxygen flow rate 3 L/min MD Garrison Bell Work Phone: [facility] 05-28-2023 10:04-0500 Body height 157.48 cm MD Garrison Bell Work Phone: [facility] 05-28-2023 10:04-0500 Body weight 141.52 kg MD Garrison eBll Work Phone: [facility] 05-07-2023 10:15-0500 Diastolic blood pressure 87 mm[Hg] MD Garrison Bell Work Phone: [facility] 05-07-2023 10:15-0500 Heart rate 74 /min MD Garrison Bell Work Phone: [facility] 05-07-2023 10:15-0500 Respiratory rate 16 /min MD Garrison Bell Work Phone: [facility] 05-07-2023 10:15-0500 SaO2% (BldA) [Mass fraction] 95 % MD Garrison Bell Work Phone: [facility] 05-07-2023 10:15-0500 Systolic blood pressure 173 mm[Hg] MD Garrison Bell Work Phone: [facility] 05-07-2023 09:30-0500 Inhaled oxygen flow rate 3 L/min MD Garrison Bell Work Phone: [facility] 05-07-2023 08:40-0500 Body height 157.48 cm MD Garrison Bell Work Phone: [facility] 05-07-2023 08:40-0500 Body weight 141.52 kg MD Garrison Bell Work Phone: [facility] 03-06-2023 11:30-0400 Body height 160.02 cm Garrison Bell Other [facility] [employer] Other 03-06-2023 11:30-0400 Body mass index (BMI) [Ratio] 55.26 kg/m2 Garrison Bell Other [facility] Other 03-06-2023 11:30-0400 Body weight 141.52 kg Garrison Bell Other [facility] Other 03-06-2023 11:30-0400 Diastolic blood pressure 72 mm[Hg] Garrison Bell Other [facility] Other 03-06-2023 11:30-0400 Respiratory rate 12 /min Garrison Bell Other [facility] Other 03-06-2023 11:30-0400 Systolic blood pressure 118 mm[Hg] Garrison Bell Other [facility] Other 02-12-2023 11:10-0400 Diastolic blood pressure 80 mm[Hg] MD Garrison Bell Work Phone: [facility] 02-12-2023 11:10-0400 Heart rate 80 /min MD Garrison Bell Work Phone: [facility] 02-12-2023 11:10-0400 Respiratory rate 18 /min MD Garrison Bell Work Phone: [facility] 02-12-2023 11:10-0400 SaO2% (BldA) [Mass fraction] 96 % MD Garrison Bell Work Phone: [facility] 02-12-2023 11:10-0400 Systolic blood pressure 145 mm[Hg] MD Garrison Bell Work Phone: [facility] 02-12-2023 10:28-0400 Inhaled oxygen flow rate 3 L/min MD Garrison Bell Work Phone: [facility] 02-12-2023 09:59-0400 Body height 157.48 cm MD Garrison Bell Work Phone: [facility] 02-12-2023 09:59-0400 Body weight 92.07 kg MD Garrison Bell Work Phone: [facility] 12-05-2022 11:30-0400 Body height 160.02 cm Garrison Bell Other [facility] Other 12-05-2022 11:30-0400 Body mass index (BMI) [Ratio] 55.09 kg/m2 Garrison Bell Other [employer] Other 12-05-2022 11:30-0400 Body temperature 97.8 [degF] Garrison Bell Other [employer] Other 12-05-2022 11:30-0400 Body weight 141.07 kg Garrison Bell Other [employer] Other 12-05-2022 11:30-0400 Diastolic blood pressure 50 mm[Hg] Garrison Bell Other [employer] Other 12-05-2022 11:30-0400 Systolic blood pressure 92 mm[Hg] Garrison Bell Other [employer] Other 10-23-2022 09:42-0400 Diastolic blood pressure 80 mm[Hg] MD Garrison Bell Work Phone: [facility] 10-23-2022 09:42-0400 Heart rate 75 /min MD Garrison Bell Work Phone: [facility] 10-23-2022 09:42-0400 Respiratory rate 18 /min MD Garrison Bell Work Phone: [facility] 10-23-2022 09:42-0400 SaO2% (BldA) [Mass fraction] 98 % MD Garrison Bell Work Phone: [facility] 10-23-2022 09:42-0400 Systolic blood pressure 142 mm[Hg] MD Garrison Bell Work Phone: [facility] 10-23-2022 09:03-0400 Inhaled oxygen flow rate 3 L/min MD Garrison Bell Work Phone: [facility] 10-23-2022 08:15-0400 Body height 157.48 cm MD Garrison Bell Work Phone: [facility] 10-23-2022 08:15-0400 Body weight 141.97 kg MD Garrison Bell Work Phone: [facility] 10-09-2022 16:00-0400 Body height 160.02 cm Al[address] Cr Other [facility] Other 10-09-2022 16:00-0400 Body mass index (BMI) [Ratio] 55.26 kg/m2 Alka Hankins Other [facility] Other 10-09-2022 16:00-0400 Body weight 141.52 kg Alka Hankins Other [facility] Other 09-04-2022 12:30-0400 Body height 160.02 cm Garrison Bell Other [facility] Other 09-04-2022 12:30-0400 Body mass index (BMI) [Ratio] 55.26 kg/m2 Garrison Bell Other [facility] Other 09-04-2022 12:30-0400 Body weight 141.52 kg Garrison Bell Other [facility] Other 09-04-2022 12:30-0400 Diastolic blood pressure 82 mm[Hg] Garrison Bell Other [facility] Other 09-04-2022 12:30-0400 Systolic blood pressure 128 mm[Hg] Garrison Bell Other [facility] Other 08-07-2022 08:38-0500 Diastolic blood pressure 55 mm[Hg] MD Garrison Bell Work Phone: [facility] 08-07-2022 08:38-0500 Heart rate 78 /min MD Garrison Bell Work Phone: [facility] 08-07-2022 08:38-0500 Respiratory rate 16 /min MD Garrison Bell Work Phone: [facility] 08-07-2022 08:38-0500 SaO2% (BldA) [Mass fraction] 95 % MD Garrison Bell Work Phone: [facility] 08-07-2022 08:38-0500 Systolic blood pressure 130 mm[Hg] MD Garrison Bell Work Phone: [facility] 08-07-2022 07:59-0500 Inhaled oxygen flow rate 3 L/min MD Garrison Bell Work Phone: [facility] 08-07-2022 07:23-0500 Body height 157.48 cm MD Garrison Bell Work Phone: [facility] 08-07-2022 07:23-0500 Body weight 141.97 kg MD Garrison Bell Work Phone: [facility] 02-27-2022 14:15-0400 Body height 160.02 cm Zena Hendrixarney Other [employer] [employer] [facility] Other 02-27-2022 14:15-0400 Body mass index (BMI) [Ratio] 53.67 kg/m2 Zena Hendrixarney Other [facility] Other 02-27-2022 14:15-0400 Body weight 137.44 kg Zena Hendrixarney Other [facility] Other 02-06-2022 15:00-0400 Body height 160.02 cm Zena Escobarney Other [facility] Other 02-06-2022 15:00-0400 Body mass index (BMI) [Ratio] 53.67 kg/m2 Zena Hendrixarney Other [facility] Other 02-06-2022 15:00-0400 Body weight 137.44 kg Zena Hendrixarney Other [facility] Other 01-03-2022 10:35-0400 Body height 160.02 cm Jazz Nance Other [facility] Other 01-03-2022 10:35-0400 Body mass index (BMI) [Ratio] 53.67 kg/m2 Jazz Nance Other [facility] Other 01-03-2022 10:35-0400 Body temperature 98.5 [degF] Jazz Nance Other [facility] Other 01-03-2022 10:35-0400 Body weight 137.44 kg Jazz Nance Other [facility] Other 01-03-2022 10:35-0400 SaO2% (BldA) [Mass fraction] 95 % Jazz Nance Other [facility] Other 11-06-2021 15:45-0400 Body height 160.02 cm Zena Ricky Other [facility] Other 03-22-2021 10:45-0400 Body height 160.02 cm Zena Ricky Other [facility] Other 03-22-2021 10:45-0400 Body mass index (BMI) [Ratio] 50.3 kg/m2 Zena Ricky Other [facility] Other 03-22-2021 10:45-0400 Body weight 128.82 kg Zena Hendrixarney Other [facility] Other Encounters Encounter Date Encounter Type Care Provider Facility Start: 10-15-2023 End: 10-15-2023 ambulatory Garrison Bell Facility:[facility] Start: 10-15-2023 Non-patient / Non-visit MD Chelsea Bell Work Phone: [facility] Work Phone: Start: 10-15-2023 End: 10-15-2023 Admission to same day surgery center MD Garrison Bell Work Phone: [facility] Work Phone: Start: 10-15-2023 End: 10-15-2023 ambulatory MD Garrison Bell Work Phone: [facility] Work Phone: Start: 10-10-2023 End: 10-10-[address] [facility] Work Phone: Start: 10-10-2023 End: 10-10-2023 Patient encounter procedure [facility] Work Phone: Start: 10-09-2023 End: 10-09-2023 ambulatory SKYLERAB CONNIE [facility] Start: 09-13-2023 End: 09-13-2023 ambulatory DANIELA HENDRICKS [facility] Start: 09-04-2023 End: 09-04-2023 Patient encounter procedure [facility] Work Phone: Start: 08-16-2023 Non-patient / Non-visit [facility] Work Phone: Start: 07-15-2023 End: 07-15-2023 ambulatory Garrison Bell Other [facility] [employer] [facility] Other Start: 07-15-2023 Telephone encounter Garrison Bell [facility] Start: 06-07-2023 End: 06-07-2023 ambulatory Garrison Bell Other [facility] Other Start: 06-07-2023 Telephone encounter Garrison Bell [facility] Start: 06-05-2023 End: 06-05-2023 ambulatory Garrison Bell Other [facility] Other Start: 06-05-2023 Office outpatient vi sit 25 minutes [facility] Start: 05-28-2023 (Procedure) Short Eric Villanueva [facility] Start: 05-28-2023 End: 05-28-2023 ambulatory Garrison Bell Facility:[facility] Start: 05-28-2023 End: 05-28-2023 Admission to same day surgery center MD Garrison Bell Work Phone: [facility] Work Phone: Start: 05-28-2023 End: 05-28-2023 ambulatory MD Garrison Bell Work Phone: [facility] Work Phone: Start: 05-20-2023 End: 05-20-2023 ambulatory Eric Villanueva Other [employer] Other Start: 05-20-2023 Office outpatient vi sit 25 minutes Eric Gileser [facility] [place] Start: 05-08-2023 End: 05-08-2023 ambulatory [facility] Start: 05-07-2023 (Procedure) Short Eric Villanueva [facility] Start: 05-07-2023 End: 05-07-2023 ambulatory Garrison Bell [employer] Other Start: 05-07-2023 End: 05-07-2023 Admission to same day surgery center MD Garrison Bell Work Phone: [facility] Work Phone: Start: 04-23-2023 End: 04-23-2023 ambulatory Eric Villanueva Facility:[facility] Start: 04-23-2023 End: 04-23-2023 Patient encounter procedure MD Garrison Bell Work Phone: [facility] Start: 04-23-2023 End: 04-23-2023 ambulatory MD Garrison Bell Work Phone: [facility] Work Phone: Start: 04-23-2023 Office outpatient vi sit 25 minutes Eric Villanueva [facility] [place] Start: 03-06-2023 End: 03-06-2023 ambulatory Garrison Bell Other [employer] Other Start: 03-06-2023 Office outpatient vi sit 15 minutes Garrison Bell [facility] Start: 02-28-2023 End: 02-28-2023 ambulatory Eric Gileser Other [employer] Other Start: 02-28-2023 Office outpatient vi sit 15 minutes Eric Villanueva [facility] [place] Start: 02-12-2023 (Procedure) Short Eric Kay [facility] Start: 02-12-2023 End: 02-12-2023 Admission to same day surgery center MD Garrison Bell Work Phone: [facility] Work Phone: Start: 02-12-2023 End: 02-12-2023 ambulatory MD Garrison Bell Work Phone: [facility] Work Phone: Start: 02-07-2023 End: 02-07-2023 ambulatory Eric Villanueva Other [employer] Other Start: 02-07-2023 Office outpatient vi sit 25 minutes Eric Villanueva [facility] [place] Start: 01-01-2023 End: 01-01-2023 ambulatory Garrison Bell Other [employer] Other Start: 01-01-2023 Telephone encounter [facility] Start: 12-31-2022 End: 12-31-2022 ambulatory Garrison Bell Other [employer] Other Start: 12-31-2022 Telephone encounter [facility] Start: 12-05-2022 End: 12-05-2022 ambulatory Garrison Bell Other [employer] Other Start: 12-05-2022 Office outpatient vi sit 25 minutes [facility] Start: 11-27-2022 End: 11-27-2022 ambulatory Garrison Bell Other [employer] Other Start: 11-27-2022 Telephone encounter [facility] Start: 11-13-2022 End: 11-13-2022 ambulatory [facility] Start: 11-06-2022 End: 11-07-[address] GARRISON BELL Facility: Start: 11-05-2022 End: 11-05-2022 ambulatory Garrison Bell Facility:[facility] Start: 11-05-2022 End: 11-05-2022 ambulatory MD Garrison Bell Work Phone: [facility] Work Phone: Start: 11-05-2022 End: 11-05-2022 Patient encounter procedure MD Garrison Bell Work Phone: [facility] Start: 10-23-2022 (Procedure) Short Eric Villanueva [facility] Start: 10-23-2022 End: 10-23-[address] [facility] Other Start: 10-23-2022 End: 10-23-2022 Admission to same day surgery center MD Garrison Bell Work Phone: [facility] Work Phone: Start: 10-10-2022 End: 10-10-2022 ambulatory Eric Villanueva Other [employer] Other Start: 10-10-2022 Telephone encounter Eric Villanueva [facility] Start: 10-09-2022 End: 10-09-2022 Patient encounter procedure MD Garrison Bell Work Phone: [facility] Start: 10-09-2022 End: 10-09-2022 ambulatory Alka Hankins Other [employer] Other Start: 10-09-2022 Office outpatient ne w 45 minutes Alka Hankins [facility] Start: 09-04-2022 End: 09-04-2022 ambulatory Garrison Bell Other [employer] Other Start: 09-04-2022 Office outpatient vi sit 15 minutes [facility] Start: 08-24-2022 End: 08-24-2022 ambulatory Eric Villanueva Other [employer] Other Start: 08-24-2022 Telephone encounter Eric Jaeger [facility] Start: 08-22-2022 End: 08-23-2022 ambulatory ZENA POTTER Facility:[facility] Start: 08-22-2022 End: 08-22-2022 Patient encounter procedure ZENA POTTER [facility] Start: 08-14-2022 End: 08-14-2022 ambulatory Eric Villanueva Other [employer] Other Start: 08-14-2022 Office outpatient vi sit 25 minutes Eric Villanueva [facility] [place] Start: 08-07-2022 End: 08-07-2022 Admission to same day surgery center MD Garrison Bell Work Phone: [facility] Work Phone: Start: 08-07-2022 End: 08-07-2022 ambulatory MD Garrison Bell Work Phone: [facility] Work Phone: Start: 07-27-2022 End: 07-27-2022 ambulatory Garrison Bell Other [employer] Other Start: 07-27-2022 Telephone encounter Garrison BARRERA [facility] Start: 07-26-2022 End: 07-27-[address] GARRISON BELL Facility: Start: 07-17-2022 End: 07-17-2022 ambulatory Eric Villanueva Other [employer] Other Start: 07-17-2022 Telephone encounter [facility] Start: 06-19-2022 Adult health examination Eric Villanueva Other [employer] Other Start: 06-19-2022 End: 06-20-[address] GARRISON BELL Facility:[facility] Start: 06-10-2022 End: 06-11-[address] GARRISON BELL Facility:[facility] Start: 05-08-2022 End: 05-09-[address] GARRISON BELL Facility:[facility] Start: 04-16-2022 End: 04-16-2022 ambulatory Eric Villanueva Other [employer] Other Start: 04-16-2022 Telephone encounter Eric MOHAN [facility] Start: 03-26-2022 End: 03-26-2022 ambulatory Eric Villanueva Other [employer] Other Start: 03-26-2022 Telephone encounter Eric MOHAN [facility] Start: 03-13-2022 End: 03-13-2022 ambulatory Eric Villanueva Other [employer] [facility] Other Start: 03-13-2022 Telephone encounter Eric Changiuliano MOHAN [employer] Start: 03-12-2022 End: 03-12-2022 ambulatory Eric Villanueva Other [employer] Other Start: 03-12-2022 Office outpatient ne w 45 minutes Eric Villanueva [facility] [place] Start: 03-09-[address] GARRISON BELL Facil ity:[facility] Start: 03-08-2022 End: 03-09-[address] GARRISON BELL Facility:[facility] Start: 02-27-2022 End: 02-27-2022 ambulatory Zena García Other [facility] [employer] [facility] Other Start: 02-27-2022 Patient encounter procedure Zena García [facility] Start: 02-22-2022 End: 02-22-2022 ambulatory Eric Villanueva Other [employer] [facility] Other Start: 02-22-2022 Telephone encounter Eric Jaeger [employer] Start: 02-06-2022 End: 02-06-2022 ambulatory Zena García Other [employer] Other Start: 02-06-2022 Office outpatient vi sit 25 minutes Zena García [facility] Start: 01-24-2022 End: 01-25-[address] GARRISON BELL Facility: Start: 01-03-2022 End: 01-03-2022 ambulatory Jazz Lee Ann Other [employer] [facility] Other Start: 01-03-2022 Office outpatient vi sit 25 minutes Jazz Lee Ann [facility] Start: 11-06-2021 End: 11-06-2021 ambulatory Zena García Other [employer] Other Start: 11-06-2021 Office outpatient vi sit 15 minutes Zena García [facility] Start: 09-06-2021 ambulatory ZENA POTTER Facility :[facility] Start: 08-08-2021 End: 08-08-2021 ambulatory Zena García Other [employer] Other Start: 08-08-2021 Office outpatient vi sit 15 minutes Zena García [facility] Start: 03-22-2021 Office outpatient vi sit 15 minutes Zena García [facility] Procedures Date Procedure Procedure Detail Performing Clinician Start: 10-15-2023 Epidural injection o f lumbar spine using fluoroscopic guidance MD Garrison Bell Work Phone: Start: 05-28-2023 Epidural injection o f lumbar spine using fluoroscopic guidance MD Garrison Bell Work Phone: Start: 05-07-2023 Injection of local anesthetic into sacroiliac joint MD Garrison Bell Work Phone: Start: 04-23-2023 X-ray of lumbar spin e, four views MD Garrison Bell Work Phone: Start: 02-12-2023 Injection of local anesthetic into sacroiliac joint MD Garrison Bell Work Phone: Start: 11-05-2022 X-ray of left knee MD Robyn Bell Work Phone: Start: 10-23-2022 Injection of spinal epidural space MD Grarison Bell Work Phone: Start: 10-09-2022 Plain X-ray of left wrist MD Garrison Bell Work Phone: Start: 08-07-2022 Epidural injection o f lumbar spine using fluoroscopic guidance MD Garrison Bell Work Phone: Appendectomy ZENA POTTER Cholecystectomy ZENA ANAYA Hysterectomy ZENA POTTER Plan of Treatment Date Care Activity Detail Author Start: 10-15-2023 [facility] Start: 05-28-2023 [facility] Start: 05-07-2023 [facility] Start: 02-12-2023 [facility] Start: 10-23-2022 [facility] Start: 08-07-2022 [facility] Comprehensive metabo lic 2000 panel - Serum or Plasma [facility] CT Chest WO and W contrast IV [facility] Patient Education Kay Non Brinda gnostic Block [facility] Work Phone: Patient referral [facility] Work Phone: [facility] Immunizations Immunization Date Immunization Notes Care Provider Fa cilidana 06-05-2022 Prevnar 20 Eric Villanueva Other [facility] 04-17-2022 COVID-19 Pfizer (Pediatric) Eric Villanueva Other [facility] 04-17-2022 influenza virus vaccine, split virus (incl. purified surface antigen) Eric Villanueva Other [employer] Other 04-17-2022 influenza virus vaccine, unspecified formulation [facility] 04-14-2021 COVID-19 Vaccine Pfi zer - Documentation Purposes Only Eric Villanueva Other [facility] 04-14-2021 influenza virus vaccine, split virus (incl. purified surface antigen) Eric Villanueva Other [facility] Other 04-14-2021 influenza virus vaccine, unspecified formulation [facility] 03-24-2021 SARS-CoV-2 (COVID-19 ) Ad26 vaccine, recombinant ZENA ABBEY [facility] 03-22-2021 Kenalog -40 mg Zena Kear ingrid Other [facility] Other 11-16-2020 Kenalog -40 mg Zena Kear ingrid Other [facility] Other 08-22-2020 SARS-CoV-2 (COVID-19 ) Ad26 vaccine, recombinant ZENA ABBEY [facility] 07-25-2020 SARS-CoV-2 (COVID-19 ) Ad26 vaccine, recombinant ZENA ABBEY [facility] 06-20-2020 zoster vaccine, live Eric Villanueva Other [facility] 01-07-2020 zoster vaccine, live Eric Villanueva Other [facility] 05-05-2019 influenza virus vaccine, split virus (incl. purified surface antigen) Eric Villanueva Other [facility] Other 05-05-2019 influenza virus vaccine, unspecified formulation [facility] 04-07-2018 influenza virus vaccine, split virus (incl. purified surface antigen) Eric Villanueva Other [employer] Other 04-07-2018 influenza virus vaccine, unspecified formulation [facility] 03-21-2016 diphtheria, tetanus toxoids and acellular pertussis vaccine, unspecified formulation Eric Changiuliano Other [facility] 12-01-2015 pneumococcal polysaccharide vaccine, 23 valent Eric Villanueva Other [facility] 03-23-2013 pneumococcal conjuga te vaccine, 13 valent Eric Changiuliano Other [facility] pneumococcal Conjuga te, unspecified formulation; Translations: [Need for prophylactic vaccination against Streptococcus pneumoniae (pneumococcus)] Eric Villanueva Other [facility] Other Payers Date Payer Category Payer Self-pay [id number] 1959 Medicare [id number] 1959 Unknown [id number] 1950 Unknown [id number] 1950 Unknown [id number] 1950 Unknown [id number] [id number] 1950 Unknown [id number] [id number] 1950 Unknown [id number] 2.16.840.1.044152.3.579.2.593 1950 Unknown [id number] 2.16.840.1.987242.3.579.2.593 1950 Unknown [id number] 2.16.840.1.135853.3.579.2.593 1950 Unknown [id number] 2.16.840.1.577941.3.579.2.593 1950 Unknown [id number] 2.16.840.1.725931.3.579.2.593 1950 Unknown [id number] [id number]3 Private Health Insurance [facility] [id number] Unknown [employer] [id number] HCAP/HFA/FAP Active [id number] Unknown [id number] [id number] Unknown [id number] [id number] Unknown [id number] 2.16.840.1.085975.3.579.2.531 Unknown [id number] 2.16.840.1.978510.3.579.2.531 Unknown [id number] [id number] Unknown [id number] [id number] Social History Date Type Detail Facility Unknown if ever smoked [facility] [employer] [facility] Other Sex Assigned At [facility] Start: 08-07-2022 End: 05-07-2023 Tobacco smoking status NHIS Never smoked tobacco (finding) [facility] Start: 1950 Sex Assigned At Female F [facility] Tobacco smoking status Never [facility] Goals Date Patient Goal Desired Activity /State Clinical Notes 03-22-2021 to 10-15-2023 Note Date & Type Note Facility 10-15-2023 Procedure note [facility] 10-09-2023 Note [facility] Note Chief Complaint: Patient here for follow up echo and stress test. She never started lisinopril and isosorbide because she doesn't want the potential side effects. Still getting intermittent chest pain and is very SOB. She thinks maybe myalgias are from atorvastatin and Zetia. HPI: Libra Noonan is a 72 y.o. female With a history of moderate coronary artery disease, hypertension, morbid obesity who is here for follow-up after recent stress test Notably, the patient had COVID diagnosed in May; ever since, she has become extremely short of breath with minimal activity. She also experiences left-sided chest pain radiating to below the breast that occurs with exertion and at rest. She sleeps semireclined. She denies orthopnea. She has no significant lower extremity edema. Cardiology ROS: Review of Systems Constitutional: Positive for malaise/fatigue. Cardiovascular: Positive for chest pain, dyspnea on exertion and leg swelling. Respiratory: Positive for cough, sleep disturbances due to breathing and wheezing. Neurological: Positive for loss of balance. Allergic/Immunologic: Positive for environmental allergies. All other systems reviewed and are negative. Past Medical History She has a past medical history of Coronary artery disease, Diabetes mellitus ([facility]/HCC), Hyperlipidemia, and Hypertension. Surgical History She has [...] this was a defibrillator Stroke Father Allergies Adhesive tape-silicones, Oxycodone-acetaminophen, and Propoxyphene n-acetaminophen Medications Current Outpatient Medications: albuterol 2.5 mg /3 mL (0.083 %) nebulizer solution, INHALE 1 (ONE) vial via NEBULIZER FOUR TIMES DAILY NEEDED, Disp: , Rfl: aspirin 81 mg capsule, Take 81 mg by mouth in the morning., Disp: , Rfl: atorvastatin (Lipitor) 80 mg tablet, Take 80 mg by mouth at bedtime., Disp: , Rfl: carvedilol (Coreg) 6.25 mg tablet, Take 1 tablet (6.25 mg) by mouth with breakfast and with evening meal., Disp: 180 tablet, Rfl: 3 carvedilol (Coreg) 6.25 mg tablet, TAKE 1 1/2 TABLET TWICE DAILY, Disp: 135 tablet, Rfl: 3 cholecalciferol (Vitamin D-3) 50 MCG (2000 UT) tablet, Take 2,000 Units by mouth in the morning., Disp: , Rfl: ezetimibe (Zetia) 10 mg tablet, Take 1 tablet (10 mg) by mouth in the morning., Disp: 90 tablet, Rfl: 3 fexofenadine (Nevaeh) 180 mg tablet, Take 180 mg by mouth in the morning. As needed, Disp: , Rfl: glipiZIDE (Glucotrol) 5 mg tablet, Take 5 mg by mouth in the morning., Disp: , Rfl: insulin NPH and regular human (NovoLIN) 100 unit/mL (70-30) injection, Inject under the skin before breakfast and before evening meal., Disp: , Rfl: isosorbide mononitrate ER (Imdur) 30 mg 24 hr tablet, Take 1 tablet (30 mg) by mouth in the morning. Do not crush or chew., Disp: 90 tablet, Rfl: 3 lisinopril 5 mg tablet, Take 1 tablet (5 mg) by mouth once daily as directed. (Patient not taking: Reported on 09/13/2023), Disp: 90 tablet, Rfl: 3 pregabalin (Lyrica) 75 mg capsule, Take 75 mg by mouth in the morning. As needed, Disp: , Rfl: Last Recorded Vitals BP 145/76 (BP Location: Left wrist, Patient Position: Sitting) Pulse 79 Ht 1.575 m (5' 2 ) Wt (!) 148 kg (326 lb) SpO2 96% BMI 59.63 kg/m??? Physical Examination: GENERAL: alert and oriented [...] extremities. PSYCH: appropriate mood, affect, and judgement. INVESTIGATIONS: Echocardiogram 09/10/2023: Global left ventricular systolic function is normal; visually estimated ejection fraction is 55 to 60% Normal right ventricular size and systolic function Mildly increased left ventricular wall thickness Normal diastolic function No significant valvular abnormalities Anterior free space; trivial effusion versus fat pad Stress test 09/20/2023 Conclusion: 1. Small area of mildly decreased uptake in anterior wall on stress imaging with reversib (more content not included)... [facility] 09-13-2023 Note Patient here for [facility] ED for chest pain in Jul 2023. States she was advised by the ED physician to wait 3 weeks to call her home support worker. Last stress test was performed in Feb [...] All other systems reviewed and are negative. [facility] 07-15-2023 Evaluation note Encounter Date Diagnosis Assessment Notes Jun, Mixed hyperlipidemia (ICD-10 - E78.2) [facility] Other 12-13-2023 Evaluation note* Encounter Date Diagnosis [...] K52.9) declines GI referral at this time. [facility] [employer] [facility] Other 11-27-2023 Evaluation note* Encounter Date Diagnosis [...] Degenerative disc disease, lumbar (ICD-10 - M51.36) Apr, Chronic pain (ICD-10 - G89.29) Apr, Other Above note written by Arian Alanis MA, [employer] Breaker [employer]er. Edited and approved by Dr. Eric Villanueva MD. [facility] Other 11-15-2023 NoteCardiovascular Medicine [facility] SUBJECTIVE HPI: Libra Noonan is a 72 [...] warm and dry. Neurological: (more content not included)...[facility] 04-23-2023 Evaluation note* Encounter Date Diagnosis Assessment [...] note writ ten by Emi Gutierrez LPN, [employer]er. Edited and approved by Dr. Eric Villanueva MD. [facility] Other 09-13-2023 Evaluation note* Encounter Date Diagnosis Assessment Notes Treatment Notes Treatment Clinical Notes Feb, Type 2 diabetes mellitus with hyperglycemia (ICD-10 - E11.65) Goal: Maintain A1c below 7.0% by being compliant with prescribed medications, diet & exercise plan prior to f/u visit. Laboratory results were reviewed with patient. STATUS: New/continous Reviewed glucose of 249 - will increase dose of glipizide. [facility] [facility] [facility] Other 09-07-2023 Evaluation note* Encounter Date Diagnosis [...] note writ ten by Emi Gutierrez LPN, [employer]er. Edited and approved by Dr. Eric Villanueva MD. [facility] Other [facility]* Encounter Date Diagnosis Assessment [...] note writ ten by Arian Alanis MA, [employer]er. Edited and approved by Dr. Eric Villanueva MD. [facility] Other 07-10-2023 Evaluation note* Encounter Date Diagnosis Assessment Notes Treatment Notes Treatment Clinical Notes Dec, Dysuria (ICD-10 - R30.0) [facility] Other 06-14-2023 Evaluation note* Encounter Date Diagnosis [...] home. Discussed ER if symptoms worsen. 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 Aug, FDC (current) use of insulin (ICD-10 - Z79.4) Aug, Essential (primary) hypertension (ICD-10 - I10) Pt will have labs before next visit. Continue present meds for chronic problem. [facility] Other 03-03-2023 Evaluation note* Encounter Date Diagnosis Assessment Notes Treatment Notes Treatment Clinical Notes Aug, Other spondylosis with radiculopathy, lumbar region (ICD-10 - M47.26) [facility] [facility] [facility] Other 02-21-2023 Evaluation note* Encounter Date Diagnosis [...] note writ ten by Emi Gutierrez LPN, [employer] Breaker As[employer]er. Edited and approved by Dr. Eric Villanueva MD. [facility] Other 02-03-2023 NotePROCEDURE: XR HIP RT 2 [...] authenticated by: MIGUEL ANGEL CABALLERO Date: 2022-07-27 09:17[facility]01-24-2023 Evaluation note* Encounter Date Diagnosis Assessment Notes Treatment Notes Treatment Clinical Notes Jun, Other spondylosis with radiculopathy, lumbar region (ICD-10 - M47.26) [facility] Other 10-24-2022 Evaluation note* Encounter Date Diagnosis Assessment Notes Treatment Notes Treatment Clinical Notes Mar, Other spondylosis with radiculopathy, lumbar region (ICD-10 - M47.26) [facility] [facility] [facility] Other 09-19-2022 Evaluation note* Encounter Date Diagnosis [...] Above note written by Emi Gutierrez LPN, [employer]. Edited and approved by Dr. Eric Villanuvea MD. Medical decision making shows a new [...] negative findings were considered in medical decision-making. [employer] [employer] [facility] [facility] Other 09-06-2022 Evaluation note* Encounter Date Diagnosis Assessment Notes Treatment Notes Treatment Clinical Notes Feb, Primary osteoarthritis of left knee (ICD-10 - M17.12) Feb, Acute pain of left knee (ICD-10 - M25.562) [facility] [employer] [facility] Other 08-16-2022 Evaluation note* Encounter Date Diagnosis [...] pain of left knee (ICD-10 - M25.562) [employer] [facility] Other 07-13-2022 Evaluation note* Encounter Date Diagnosis [...] the ER for worsening symptoms or concerns [facility] [employer] [facility] Other 05-16-2022 Evaluation note* Encounter Date Diagnosis [...] pain of left knee (ICD-10 - M25.562) [facility] [employer] [facility] Other 02-15-2022 Evaluation note* Encounter Date Diagnosis [...] total right knee replacement (ICD-10 - Z96.651) [facility] [employer] [facility] Other 09-29-2021 Evaluation note* Encounter Date Diagnosis [...] total right knee replacement (ICD-10 - Z96.651) [employer] Other Evaluation + Plan note No data available for this section [facility] evaluation noteNo [employer]Nort [employer] Other Evaluation noteNo assessment information available [facility] Work Phone: Evaluation note* Diagnosis Onset Date Resolution Status Hair loss acute Hypercholesteremia acute Left-sided chest pain acute Mass of right axilla acute Mass of right chest wall acu te Type 2 diabetes mellitus with hyperglycemia acute Chronic pain acute Degenerative disc disease, lumbar acute Other spondylosis with radiculopathy, lumbar region acute [facility] Work Phone: Hisyzam general Narrative - Reported* Type Description Date Medical History Diabetes Medical History Hypertension Medical History Hypercholesteremia Medical History chronic depression Medical History anxiety Surgical History tonsillectomy Surgical History appendectomy Surgical History cholecystectomy Surgical History knee replacement Surgical History hysterectomy Surgical History laparoscopy Surgical History carpal tunnel release Surgical History wisdom teeth extract Hospitalization History see above [employer] Other Hisyven general Narrative - Reported* Type Description Date Medical History Diabetes Medical History Hypertension Medical History Hypercholesteremia Medical History chronic depression Medical History anxiety Surgical History tonsillectomy Surgical History appendectomy Surgical History cholecystectomy Surgical History knee replacement Surgical History hysterectomy Surgical History laparoscopy Surgical History carpal tunnel release Surgical History wisdom teeth extract Hospitalization History see above Hospitalization History [facility] 2021 [employer] Other history general Narrative - Reported* Type Description Date Medical History Diabetes Medical History Hypertension Medical History Hypercholesteremia Medical History chronic depression Medical History anxiety Surgical History tonsillectomy Surgical History appendectomy Surgical History cholecystectomy Surgical History knee replacement Surgical History hysterectomy Surgical History laparoscopy Surgical History carpal tunnel release Surgical History wisdom teeth extract Surgical History Epiderral 07/2022 Hospitalization History see above Hospitalization History [facility] 2021 [employer] Other Hospital Discharge instructions No data available for this section [facility] progress note No data available for this section [facility] Reason for Referral Reason *Waiting for appt Uncontrolled type 2 diabetes - on /; A1Cs will be scanned in from 2021. Diagnosis 1 Type 2 diabetes jayda itus with hyperglycemia (E11.65) Referral Organization [facility] Referring Provider First Name Garrison Referring Provider Last Name Ray Referring Provider Specialty Family Medi cine Referred Organization [facility] Endocrinology Referred Provider Akash Hendrix Referred Address [address] [place],[id number] Referred Provider Specialty Nurse Eber chavarria Referral Priority Routine General Notes Aylin Muñoz 03:32:36 PM >received today, sent p2p Reason *FU 02/21 Schedule with Ellen Villanueva for possible lumbar injections. Diagnosis 1 Primary osteoarthrit is of left knee (M17.12) Diagnosis 2 Spondylolisthesis of lumbar region (M43.16) Referral Organization [facility] Referring Provider First Name Zena Referring Provider Last Name Ricky Referring Provider Specialty Nurse Pracmilena itionechiquita Referred Organization [facility] Pain Manag[facility] [place] Referred Provider Eric Villanueva Referred Address [address] [place],[address] Referred Provider Specialty Pain Medicin e Referral Priority Routine General Notes Zena Michele 07:23:52 AM >p2p sent Zena Michele 02/14/2022 10:23:07 AM >not scheduled yet Chief Complaint and Reason for Visit Chief Complaint Back Pain Chief Complaint M25.532 Back Pain Chief Complaint M46.1 Back and Hip Pain Back Pain Chief Complaint 3 Month Check Up RECHECK BACK PAIN Reason for Visit Hair loss Hypercholesteremia Left-sided chest pain Mass of right axilla Mass of right chest wall Type 2 diabetes mellitus with hyperglycemia Chronic pain Degenerative disc disease, lumbar Other spondylosis with radiculopathy, lumbar region Chief Complaint 3 Month Check Up RECHECK BACK PAIN LUMBAR PAIN LUMBAR PAIN Reason for Visit Hair loss Hypercholesteremia Left-sided chest pain Mass of right axilla Mass of right chest wall Type 2 diabetes mellitus with hyperglycemia Chronic pain Degenerative disc disease, lumbar Other spondylosis with radiculopathy, lumbar region Family History No Family History Records Found [...] father Diabetes mellitus Unknown Malignant neoplasm Unknown Relationship Condition Age at Onset Recorded Date/T manda Not Specified Diabetes mellitus Unknown Cerebrovascular accident (CVA) Unknown Congestive heart failure Unknown father Diabetes mellitus Unknown Malignant neoplasm Unknown History of stroke Unknown Unknown Not Specified Unknown Diabetes mellitus Unknown Advance Directives No Advanced Directives Records [...] (unrecognized sec tion and content) Team Status: Active Member Role Status Dates Garrison Bell MD Primary Care Provider Active Team Status: Active Member Role Status Dates Garrison Bell MD Primary Care Provide r, Attending Provider Active Start: August 16, 2023 Team Status: Inactive Member Role Status Dates Garrison Bell MD Primary Care Provide r, Attending Provider Active Start: September 04, 2023 End: September 04, 2023 Team Status: Inactive Member Role Status Dates Garrison Bell MD Primary Care Provider Active Start: October 10, 2023 End: October 10, 2023 Eric Villanueva MD Attending Provider Active Sta rt: October 10, 2023 End: October 10, 2023 Team Status: Inactive Member Role Status Dates Garrison Bell MD Primary Care Provider Active Eric Villanueva MD Attending Provider Active Team Status: Inactive Member Role Status Dates Garrison Bell MD Primary Care Provider Active Alka Hankins MD Attending Provider Active Team Status: Inactive Member Role Status Dates Garrison Bell MD Primary Care Provider Active [employer] Attending Provider Active Team Status: Inactive Member Role Status Dates Garrison Bell MD Primary Care Provider Active Start: October 15, 2023 End: October 15, 2023 Eric Villanueva MD Attending Provider Active Sta rt: October 15, 2023 End: October 15, 2023 Team Status: Active Member Role Status Dates Garrison Bell MD Primary Care Provider Active Start: October 15, 2023 Eric Villanueva MD Attending Provider, Other Provider Active Start: October 15, 2023 INFORMATION SOURCE (unrecogn ized section and content) DATE CREATED AUTHOR 08/24/2022 [facility] DATE CREATED AUTHOR AUTHOR'S ORGANIZ ATION 11/08/2022 [facility] DATE CREATED AUTHOR AUTHOR'S ORGANIZ ATION 10/10/2023 [facility] DATE CREATED AUTHOR AUTHOR'S ORGANIZ ATION 10/16/2023 [facility] Goals (unrecognized section and content) Goals may be documented in a n alternate section FOR RECORDS PERTAINING TO PATIENTS WHO ARE [...] BE BASED ON THE PRIMARY CLINICAL RECORDS. [facility] [employer] [facility]. provides no warranty or guarantee of the accuracy or completeness of information in this document.
[2023-10-17 07:50] LABS: Basophils Percent Auto 0.6 % (0.2-2.0); Eosinophils Absolute Auto 0.1 10^3/uL (0.0-0.7); Eosinophils Percent Auto 1.4 % (0.9-7.0); Hematocrit 35.3 % (36.0-48.0); Hemoglobin 11.1 g/dL (12.0-16.0); Immature Granulocytes Abs Auto 0.02 10^3/uL (0.00-0.03); Immature Granulocytes Pct Auto 0.3 % (0.0-0.5); Lymphocytes Absolute Auto 2.1 10^3/uL (1.2-3.8); Lymphocytes Percent Auto 29.8 % (20.5-60.0); Mean Corpuscular HGB Conc 31.4 g/dL (29.9-35.2); Mean Corpuscular Hemoglobin 29.7 pg (26.7-34.0); Mean Corpuscular Volume 94.4 fL (81.0-99.0); Mean Platelet Volume 10.9 fL (9.5-13.5); Monocytes Absolute Auto 0.4 10^3/uL (0.3-0.8); Monocytes Percent Auto 6.1 % (1.7-12.0); Neutrophils Absolute Auto 4.5 10^3/uL (1.4-6.5); Neutrophils Percent Auto 61.8 % (43.0-75.0); Platelet Count 214 10^3/uL (150-450); Red Blood Count 3.74 10^6/uL (4.20-5.40); White Blood Count 7.2 10^3/uL (4.0-11.0)
[2023-10-17 08:00] LABS: Estimated Average Glucose 177 mg/dL; Glycohemoglobin A1C 7.8 % (4.5-6.2)
[2023-10-17 08:02] LABS: Alanine Aminotransferase 30 U/L (14-59); Albumin Level 3.6 g/dL (3.4-5.0); Alkaline Phosphatase 105 U/L (46-116); Aspartate Amino Transferase 17 U/L (15-37); Bilirubin Total 0.5 mg/dL (0.2-1.0); Calcium 9.4 mg/dL (8.5-10.1); Carbon Dioxide 26.7 mmol/L (21.0-32.0); Chloride 105 mmol/L (98-107); Estimated GFR (African America 51 (>=60); Estimated GFR (Non-African Ame 42 (>=60); Globulin 3.6 g/dL; Glucose 212 mg/dL (74-106); Potassium 4.7 mmol/L (3.5-5.1); Sodium 141 mmol/L (136-145); Total Protein 7.2 g/dL (6.4-8.2)
[2023-10-17 08:10] LABS: Chol HDL Ratio 1.9; Cholesterol 122 mg/dL (<=200); HDL Cholesterol 65 mg/dL (40-60); Thyroid Stimulating Hormone 2.291 uIU/mL (0.358-3.740); Triglycerides 68 mg/dL (<=150); VLDL CHOLESTEROL 13.6 mg/dL
== END 2023-10-17 06:54 | disposition home or self-care (01) ==
LOC: LAB 06:55
PROVIDERS: PCP Family Medicine; Visit Provider Family Medicine
DX: E78.00 Pure hypercholesterolemia, unspecified (principal); L65.9 Nonscarring hair loss, unspecified; E11.65 Type 2 diabetes mellitus with hyperglycemia
CPT/HCPCS: 36415; 80053; 80061; 83036; 84443; 85025

== ENCOUNTER 2023-11-04 11:26 | Outpatient (OUT) | payer MEDICARE, OTHER, SELFPAY ==
[2023-11-04 13:34] LABS: Anion Gap 14.1; BUN Creatinine Ratio 38.5; Calcium 9.4 mg/dL (8.5-10.1); Carbon Dioxide 26.9 mmol/L (21.0-32.0); Chloride 101 mmol/L (98-107); Estimated GFR (African America 34 (>=60); Estimated GFR (Non-African Ame 28 (>=60); Glucose 191 mg/dL (74-106); Sodium 138 mmol/L (136-145)
== END 2023-11-04 11:27 | disposition home or self-care (01) ==
LOC: LAB 11:28
PROVIDERS: PCP Family Medicine; Visit Provider Internal Medicine Interventional Cardiology
DX: I25.10 Atherosclerotic heart disease of native coronary artery without angina pectoris (principal)
CPT/HCPCS: 36415; 80048

== ENCOUNTER 2023-11-29 14:35 | Outpatient (OUT) | payer MEDICARE, OTHER, SELFPAY ==
[2023-11-29 15:59] LABS: Anion Gap 11.7; Carbon Dioxide 28.5 mmol/L (21.0-32.0); Chloride 104 mmol/L (98-107); Estimated GFR (African America 44 (>=60); Estimated GFR (Non-African Ame 37 (>=60); Glucose 142 mg/dL (74-106); Potassium 4.2 mmol/L (3.5-5.1); Sodium 140 mmol/L (136-145)
== END 2023-11-29 14:36 | disposition home or self-care (01) ==
LOC: LAB 14:39
PROVIDERS: PCP Family Medicine; Visit Provider Internal Medicine Interventional Cardiology
DX: I10 Essential (primary) hypertension (principal)
CPT/HCPCS: 36415; 80048

== ENCOUNTER 2023-12-09 13:56 | Outpatient (OUT) | payer MEDICARE, OTHER, SELFPAY ==
[2023-12-09 14:34] LABS: Basophils Percent Auto 0.4 % (0.2-2.0); Eosinophils Absolute Auto 0.3 10^3/uL (0.0-0.7); Eosinophils Percent Auto 2.7 % (0.9-7.0); Hematocrit 37.7 % (36.0-48.0); Hemoglobin 11.8 g/dL (12.0-16.0); Immature Granulocytes Abs Auto 0.04 10^3/uL (0.00-0.03); Immature Granulocytes Pct Auto 0.4 % (0.0-0.5); Lymphocytes Absolute Auto 2.5 10^3/uL (1.2-3.8); Lymphocytes Percent Auto 26.3 % (20.5-60.0); Mean Corpuscular HGB Conc 31.3 g/dL (29.9-35.2); Mean Corpuscular Hemoglobin 29.1 pg (26.7-34.0); Mean Corpuscular Volume 92.9 fL (81.0-99.0); Mean Platelet Volume 10.4 fL (9.5-13.5); Monocytes Absolute Auto 0.5 10^3/uL (0.3-0.8); Monocytes Percent Auto 5.2 % (1.7-12.0); Neutrophils Absolute Auto 6.1 10^3/uL (1.4-6.5); Platelet Count 242 10^3/uL (150-450); Red Blood Count 4.06 10^6/uL (4.20-5.40); Red Cell Distribution Width 12.9 % (11.0-15.0); White Blood Count 9.4 10^3/uL (4.0-11.0)
== END 2023-12-09 13:57 | disposition home or self-care (01) ==
LOC: LAB 13:56
PROVIDERS: PCP Family Medicine; Visit Provider Family Medicine
DX: D64.9 Anemia, unspecified (principal); I11.0 Hypertensive heart disease with heart failure; I50.9 Heart failure, unspecified
CPT/HCPCS: 36415; 80048; 82607; 82728; 82746; 85025

== ENCOUNTER 2023-12-09 13:58 | Outpatient (OUT) | payer MEDICARE, OTHER, SELFPAY ==
[2023-12-09 14:36] LABS: Anion Gap 8.8; BUN Creatinine Ratio 24.8; Calcium 9.1 mg/dL (8.5-10.1); Carbon Dioxide 28.9 mmol/L (21.0-32.0); Chloride 105 mmol/L (98-107); Estimated GFR (African America 48 (>=60); Estimated GFR (Non-African Ame 39 (>=60); Glucose 162 mg/dL (74-106); Potassium 4.7 mmol/L (3.5-5.1); Sodium 138 mmol/L (136-145)
== END 2023-12-09 13:59 | disposition home or self-care (01) ==
LOC: LAB 13:58
PROVIDERS: PCP Family Medicine; Visit Provider Internal Medicine Interventional Cardiology
DX: I11.0 Hypertensive heart disease with heart failure (principal); I50.9 Heart failure, unspecified
CPT/HCPCS: 36415; 80048

== ENCOUNTER 2023-12-30 08:53 | Outpatient (OUT) | payer MEDICARE, OTHER, SELFPAY ==
--- OUTSIDE RECORDS SUMMARY | 2023-12-30 09:10 | XMS_ITS ---
Patient Summarization (C-CDA 2.1 CCD) Created on: December 30, 2023 LIBRA NOONAN : 1950 Sex: Female Author Organization Sample organization Care Team Providers Care Outreach Specialist Name Role Phone Zena García Unavailable Jazz Nance Unavailable Eric Villanueva Unavailable MD Garrison Bell Primary Care Provider MD Eric Villanueva Attending Provider GARRISON BELL Primary Care Physician ZENA POTTER Attending Unavailable Garrison Bell Unavailable Alka Hankins Unavailable MD Garrison Bell Primary Care Provider MD Alka Hankins Attending Provider [phone] MD Eric Villanueva Attending Provider [phone] ANGELO García Attending Provider [phone] DR GARRISON BELL Admitting Unavailable RAY, DR GARRISON Jefferson Primary Care Unavailable PORT[place], DR ANN MARIE Gibbons Consulting Unavailable RAY, DR AGRRISON Jefferson Attending Unavailable RAY, DR GARRISON Jefferson Consulting Unavailable BELL, DR GARRISON Jefferson Admitting Unavailable BELL, DR GARRISON Jefferson Consulting Unavailable BELL, DR GARRISON Jefferson Primary Care Unavailable BELL, DR GARRISON Jefferson Attending Unavailable RAY, DR GARRISON Jefferson Primary Care Unavailable RIMA JAIN Consulting Unavailable RIMA JAIN Attending Unavailable RIMA JAIN Admitting Unavailable RAY, DR GARRISON Jefferson Primary Care Unavailable ERYN, DR RONALD De Guzman Attending Unavailable ERYN, DR RONALD De Guzman Admitting Unavailable COURTNEY, DR LUCRECIA Ellis Consulting Unavailable ERYN, DR RONALD De Guzman Consulting Unavailable YONIS PACHECO Consulting Unavailable RAY, DR GARRISON Jefferson Primary Care Unavailable RAY, DR GARRISON Jefferson Consulting Unavailable EBLL, DR GARRISON Jefferson Attending Unavailable BELL, DR GARRISON Jefferson Admitting Unavailable BELL, DR GARRISON Jefferson Admitting Unavailable BELL, DR GARRISON Jefferson Primary Care Unavailable BELL, DR GARRISON Jefferson Attending Unavailable ADA, DR MIGUEL ANGEL Ellis Consulting Unavailable BELL, DR GARRISON Jefferson Consulting Unavailable ANN MARIE TINEO Consulting Unavailable BELL, DR GARRISON Jefferson Admitting Unavailable BELL, DR GARRISON Jefferson Primary Care Unavailable BELL, DR GARRISON Jefferson Consulting Unavailable BELL, DR GARRISON Jefferson Attending Unavailable WEI REED Consulting Unavailable BELL, DR GARRISON Jefferson Primary Care Unavailable RIMA JAIN Consulting Unavailable RIMA JAIN Attending Unavailable RIMA JAIN Admitting Unavailable BELL, DR GARRISON Jefferson Admitting Unavailable BELL, DR GARRISON Jefferson Primary Care Unavailable BELL, DR GARRISON Jefferson Attending Unavailable MD Garrison Bell Primary Care Provider MD Eric Villanueva Attending Provider MD Garrison Bell Primary Care Provider MD Eric Villanueva Attending Provider MD Garrison Bell Primary Care Provider MD Eric Villanueva Attending Provider SPRING GarcíaC Zena Landry Attending Provider Zena García Admitting Unavailable Zena García Attending Unavailable Bell, Garrison E Primary Care Unavailable Kay, Eric Admitting Unavailable Kay, Eric Attending Unavailable Bell, Garrison E Primary Care Unavailable Zena García Admitting Unavailable Zena García Attending Unavailable Bell, Garrison E Primary Care Unavailable Chaner, Eric Admitting Unavailable Felter, Eric Attending Unavailable Bell, Garrison E Primary Care Unavailable Felter, Eric Admitting Unavailable Felter, Eric Attending Unavailable Bell, Garrison E Primary Care Unavailable Kay, Eric Admitting Unavailable Chaner, Eric Attending Unavailable Bell, Garrison E Primary Care Unavailable Felter, Eric Admitting Unavailable Felter, Eric Attending Unavailable Bell, Garrison E Primary Care Unavailable Felter, Eric Admitting Unavailable Felter, Eric Attending Unavailable Bell, Garrison E Primary Care Unavailable [facility], [facility]AB Admitting Unavailable [facility] Attending Unavailable DANIELA HENDRICKS Attending Unavailable RIMA JAIN Attending Unavailable ELTAHAWY, EH Attending Unavailable ELTAHAWManisha, EH Referring Unavailable ELTAHAWManisha, EHAB Attending Unavailable Allergies Allergy Classification Reported Allergen(s) Allergy Type Date of Onset Reaction(s) Facility Acetaminophen (1 source) Acetaminophen Drug Allergy 12-04-19 24 dizziness, and stomach issues [facility] Angiotensin Converting Enzyme (HIRAM) Inhibitors (1 source) Lisinopril Drug Allergy 12-04-[address] [facility] metFORMIN (1 source) metFORMIN Drug Allergy 12-04-19 [facility] Nitrofurantoin (1 source) Nitrofurantoin Drug Allergy 12-04-[address] [facility] Opioid Agonists (2 sources) oxyCODONE Drug Allergy 12-04-19 24 constipation, dizziness, and stomach issues, Vomiting [facility] (20 sources) Acetaminophen / oxyCODONE; Translations: [acetaminophen-ox ycodone] Drug Allergy 01-21-20 19 Unknown (qualifier value) [facility] (10 sources) oxyCODONE; Translations: [oxycodone] Drug Allergy 03-20-20 22 Vomiting, constipation, constipation, dizziness, and stomach issues [facility] (10 sources) Propoxyphene; Translations: [propoxyphene] Drug Allergy 03-20-20 [address] [facility] (2 sources) acetaminophen / propoxyphene; Translations: [acetaminophen-pr opoxyphene] Drug Allergy Unknown (qualifier value) [facility] (2 sources) Acetaminophen / oxyCODONE; Translations: [Percocet] Drug Allergy 07-28-19 21 [facility] (15 sources) Lisinopril Drug Allergy 01-20-20 19 Unknown, [facility] (15 sources) metFORMIN Drug Allergy 01-20-20 19 Unknown, [facility] (11 sources) NITROFURANTOIN, MACROCRYSTALS / Nitrofurantoin, Monohydrate Drug Allergy Unknown [facility] Other (3 sources) Allergies Reconciled Propensity to adverse reactions Unknown [facility] Other (3 sources) patient allergy list reviewed by nurse or physicia Propensity to adverse reactions 01-21-20 Comment:Done [email or web address] [facility] Other (11 sources) Darvocet A500 *ANALGESICS - OPIOID* Propensity to adverse reactions 01-21-20 Unknown [facility] [employer] Other (4 sources) Acetaminophen Drug Allergy 10-10-19 dizziness, and stomach issues [facility] (4 sources) Nitrofurantoin Drug Allergy 10-10-[address] [facility] (5 sources) Darvocet A500 *ANALGESICS - OP Allergy to substance 08-15-[address] [facility] (1 source) Acetaminophen / oxyCODONE; Translations: [OXYCODONE-ACETAM INOPHEN] Drug Allergy 09-07-19 [facility] (1 source) ADHESIVE TAPE-SILICONES; Translations: [ADHESIVE TAPE-SILICONES] Propensity to adverse reactions to drug (disorder) 08-04-19 03 [facility] (1 source) PROPOXYPHENE N-ACETAMINOPHEN; Translations: [PROPOXYPHENE N-ACETAMINOPHEN] Propensity to adverse reactions to drug (disorder) 09-07-19 [facility] Encounters Encounter Date Encounter Type Care Provider Facility Start: 12-04-2023 End: 12-04-2023 ambulatory MD Garrison Bell Work Phone: [facility] Work Phone: Start: 12-04-2023 End: 12-04-2023 Patient encounter procedure MD Garrison Bell Work Phone: [facility] Work Phone: Start: 11-29-2023 Non-patient / Non-visit MD Chelsea Bell Work Phone: [facility] Work Phone: Start: 11-25-2023 End: 11-25-2023 ambulatory E[facility]AB [facility] Start: 11-04-2023 Non-patient / Non-visit MD Chelsea Bell [facility] Phone[facility] Work Phone: Start: 10-25-2023 End: 10-25-2023 [facility] Start: 10-17-2023 End: 10-17-2023 ambulatory Zena García Facility:[facility] Start: 10-17-2023 End: 10-17-2023 ambulatory MD Garrison Bell Work Phone: [facility] Work Phone: Start: 10-17-2023 End: 10-17-2023 Patient encounter procedure MD Garrison Bell Work Phone: [facility] Work Phone: Start: 10-17-2023 Non-patient / Non-visit MD Chelsea Bell Work Phone: [facility] Work Phone: Start: 10-15-2023 End: 10-15-2023 ambulatory Eric Villanueva Facility:[facility] Start: 10-15-2023 Non-patient / Non-visit MD Chelsea Bell Work Phone: [facility] Work Phone: Start: 10-15-2023 End: 10-15-2023 Admission to same day surgery center MD Garrison Bell Work Phone: [facility] Work Phone: Start: 10-15-2023 End: 10-15-2023 ambulatory MD Garrison Bell Work Phone: [facility] Work Phone: Start: 10-10-2023 End: 10-10-2023 ambulatory [facility] Work Phone: Start: 10-10-2023 End: 10-10-2023 Patient encounter procedure [facility] Work Phone: Start: 10-09-2023 End: 10-09-2023 ambulatory SKYLERAB MELISSA [facility] Start: 09-13-2023 End: 09-13-2023 ambulatory DANIELA HENDRICKS [facility] Start: 09-04-2023 End: 09-04-2023 Patient encounter procedure [facility] Work Phone: Start: 08-16-2023 Non-patient / Non-visit [facility] [employer] Work Phone: Start: 07-15-2023 End: 07-15-2023 ambulatory Garrison Bell Other [facility] Other Start: 07-15-2023 Telephone encounter Garrison Bell [facility] Start: 06-07-2023 End: 06-07-2023 ambulatory Garrison Bell Other [facility] Other Start: 06-07-2023 Telephone encounter Garrison Bell [facility] Start: 06-05-2023 End: 06-05-2023 ambulatory Garrison Bell Other [facility] Other Start: 06-05-2023 Office outpatient vi sit 25 minutes Garrison Bell [facility] Start: 05-28-2023 (Procedure) Short Eric Villanueva [facility] Start: 05-28-2023 End: 05-28-2023 ambulatory Eric Villanueva Facility:[facility] Start: 05-28-2023 End: 05-28-2023 Admission to same day surgery center MD Garrison Bell Work Phone: [facility] Work Phone: Start: 05-28-2023 End: 05-28-2023 ambulatory MD Garrison Bell Work Phone: [facility] Work Phone: Start: 05-20-2023 End: 05-20-2023 ambulatory Eric Villanueva Other [employer] Other Start: 05-20-2023 Office outpatient vi sit 25 minutes Eric Villanueva [facility] [place] Start: 05-08-2023 End: 05-08-2023 ambulatory RIMA [facility] Start: 05-07-2023 (Procedure) Short Eric Villanueva [facility] Start: 05-07-2023 End: 05-07-2023 ambulatory Eric Villanueva [facility] [employer] Other Start: 05-07-2023 End: 05-07-2023 Admission to same day surgery center MD Garrison Bell Work Phone: [facility] Work Phone: Start: 04-23-2023 End: 04-23-2023 ambulatory Eric Villanueva Facility:[facility] Start: 04-23-2023 End: 04-23-2023 Patient encounter procedure MD Garrison Bell Work Phone: [facility] Start: 04-23-2023 End: 04-23-2023 ambulatory MD Garrison Blel Work Phone: [facility] Work Phone: Start: 04-23-2023 Office outpatient vi sit 25 minutes Eric Villanueva [facility] [place] Start: 03-06-2023 End: 03-06-2023 ambulatory Garrison Bell Other [employer] Other Start: 03-06-2023 Office outpatient vi sit 15 minutes Garrison Bell [facility] Start: 02-28-2023 End: 02-28-2023 ambulatory Eric Villanueva Other [place] [employer] Other Start: 02-28-2023 Office outpatient vi sit 15 minutes Eric Villanueva [facility] [place] Start: 02-12-2023 (Procedure) Short Eric Villanueva [facility] Start: 02-12-2023 End: 02-12-2023 Admission to same day surgery center MD Garrison Bell Work Phone: [facility] Work Phone: Start: 02-12-2023 End: 02-12-2023 ambulatory MD Garrison Bell Work Phone: [facility] Work Phone: Start: 02-07-2023 End: 02-07-2023 ambulatory Eric Villanueva Other [employer] Other Start: 02-07-2023 Office outpatient vi sit 25 minutes Eric Villanueva [facility] [place] Start: 01-01-2023 End: 01-01-2023 ambulatory Garrison Bell Other [employer] Other Start: 01-01-2023 Telephone encounter Garrison Bell [facility] Start: 12-31-2022 End: 12-31-2022 ambulatory Garrison Bell Other [employer] Other Start: 12-31-2022 Telephone encounter Garrison Bell [facility] Start: 12-05-2022 End: 12-05-2022 ambulatory Garrison Bell Other [employer] Other Start: 12-05-2022 Office outpatient vi sit 25 minutes Garrison Bell [facility] Start: 11-27-2022 End: 11-27-2022 ambulatory Garrison Bell Other [employer] Other Start: 11-27-2022 Telephone encounter Garrison Bell [facility] Start: 11-06-2022 End: 11-07-[address] GARRISON BELL Facility: Start: 11-05-2022 End: 11-05-2022 ambulatory Zena García Facility:[facility] Start: 11-05-2022 End: 11-05-2022 ambulatory MD Garrison Bell Work Phone: [facility] Work Phone: Start: 11-05-2022 End: 11-05-2022 Patient encounter procedure MD Garrison Bell Work Phone: [facility] Start: 10-23-2022 (Procedure) Short Eric Villanueva [facility] Start: 10-23-2022 End: 10-23-2022 ambulatory Eric Villanueva [facility] [employer] Other Start: 10-23-2022 End: 10-23-2022 Admission to same day surgery center MD Garrison Bell Work Phone: [facility] Work Phone: Start: 10-10-2022 End: 10-10-2022 ambulatory Eric Villanueva Other [employer] Other Start: 10-10-2022 Telephone encounter Eric MOHAN G [facility] Start: 10-09-2022 End: 10-09-2022 Patient encounter procedure MD Garrison Bell Work Phone: [facility] Start: 10-09-2022 End: 10-09-2022 ambulatory Alka Hankins Other [employer] Other Start: 10-09-2022 Office outpatient ne w 45 minutes Alka Hankins [facility] Start: 09-04-2022 End: 09-04-2022 ambulatory Garrison Bell Other [employer] Other Start: 09-04-2022 Office outpatient vi sit 15 minutes Garrison Bell [facility] Start: 08-24-2022 End: 08-24-2022 ambulatory Eric Changiuliano Other [employer] Other Start: 08-24-2022 Telephone encounter Eric MOHAN [facility] Start: 08-22-2022 End: 08-23-2022 ambulatory ZENA POTTER Facility:[facility] Start: 08-22-2022 End: 08-22-2022 Patient encounter procedure ZENA POTTER [facility] Start: 08-14-2022 End: 08-14-2022 ambulatory Eric Villanueva Other [employer] Other Start: 08-14-2022 Office outpatient vi sit 25 minutes Eric Villanueva [facility] [place] Start: 08-07-2022 End: 08-07-2022 Admission to same day surgery center MD Garrison Bell Work Phone: [facility] Work Phone: Start: 08-07-2022 End: 08-07-2022 ambulatory MD Garrison Bell Work Phone: [facility] Work Phone: Start: 07-27-2022 End: 07-27-2022 ambulatory Garrison Bell Other [employer] Other Start: 07-27-2022 Telephone encounter Garrison Bell [facility] Start: 07-26-2022 End: 07-27-[address] GARRISON BELL Facility: Start: 07-17-2022 End: 07-17-2022 ambulatory Eric Villanueva Other [employer] Other Start: 07-17-2022 Telephone encounter Eric Villanueva [facility] Start: 06-19-2022 Adult health examination Eric Villanueva Other [employer] Other Start: 06-19-2022 End: 06-20-[address] GARRISON BELL Facility: Start: 06-10-2022 End: 06-11-[address] GARRISON BELL Facility:[facility] Start: 05-08-2022 End: 05-09-[address] GARRISON BELL Facility:[facility] Start: 04-16-2022 End: 04-16-2022 ambulatory Eric Villanueva Other [facility] Other Start: 04-16-2022 Telephone encounter Eric MOHAN [facility] Start: 03-26-2022 End: 03-26-2022 ambulatory Eric Changiuliano Other [facility] Other Start: 03-26-2022 Telephone encounter Eric Kay MOHAN [facility] Start: 03-13-2022 End: 03-13-2022 ambulatory Eric Gilesgiuliano Other [facility] Other Start: 03-13-2022 Telephone encounter Eric Jaeger [employer] Start: 03-12-2022 End: 03-12-2022 ambulatory Eric Villanueva Other [facility] Other Start: 03-12-2022 Office outpatient ne w 45 minutes Eric BARRERA [facility] [place] Start: 03-09-[address] GARRISON BELL Facil ity:[facility] Start: 03-08-2022 End: 03-09-[address] GARRISON BELL Facility:[facility] Start: 02-27-2022 End: 02-27-2022 ambulatory Zena García Other [facility] Other Start: 02-27-2022 Patient encounter procedure Zena García [facility] Start: 02-22-2022 End: 02-22-2022 ambulatory Eric Villanueva Other [facility] Other Start: 02-22-2022 Telephone encounter Eric Jaeger [employer] Start: 02-06-2022 End: 02-06-2022 ambulatory Zena García Other [facility] Other Start: 02-06-2022 Office outpatient vi sit 25 minutes Zena García [facility] Start: 01-24-2022 End: 01-25-[address] GARRISON BELL Facility: Start: 01-03-2022 End: 01-03-2022 ambulatory Jazz Nance Other [facility] Other Start: 01-03-2022 Office outpatient vi sit 25 minutes Jazz Nance [facility] Start: 11-06-2021 End: 11-06-2021 ambulatory Zena García Other [facility] Other Start: 11-06-2021 Office outpatient vi sit 15 minutes Zena García [facility] Start: 09-06-2021 ambulatory ZENA POTTER Facility :[facility] Start: 08-08-2021 End: 08-08-2021 ambulatory Zena García Other [facility] Other Start: 08-08-2021 Office outpatient vi sit 15 minutes Zenaanna García [facility] Start: 03-22-2021 Office outpatient vi sit 15 minutes Zenasamantha García [facility] Goals Date Patient Goal Desired Activity /State Immunizations Immunization Date Immunization Notes Care Provider Fa edith 06-05-2022 Prevnar 20 Eric Villanueva Other [facility] 04-17-2022 COVID-19 Pfizer (Pediatric) Eric Villanueva Other [facility] 04-17-2022 influenza virus vaccine, split virus (incl. purified surface antigen) Eric Villanueva Other [facility] Other 04-17-2022 influenza virus vaccine, unspecified formulation [facility] 04-14-2021 COVID-19 Vaccine Pfi zer - Documentation Purposes Only Eric Villanueva Other [facility] 04-14-2021 influenza virus vaccine, split virus (incl. purified surface antigen) Eric Villanueva Other [facility] [employer] Other 04-14-2021 influenza virus vaccine, unspecified formulation [facility] 03-24-2021 SARS-CoV-2 (COVID-19 ) Ad26 vaccine, recombinant ZENA ABBEY [facility] 03-22-2021 Kenalog -40 mg Zena Kear ingrid Other [facility] [employer] Other 11-16-2020 Kenalog -40 mg Zena Kear ingrid Other [facility] [employer] Other 08-22-2020 SARS-CoV-2 (COVID-19 ) Ad26 vaccine, recombinant ZENA ABBEY [facility] 07-25-2020 SARS-CoV-2 (COVID-19 ) Ad26 vaccine, recombinant ZENA ABBEY [facility] 06-20-2020 zoster vaccine, live Eric Gilesgiuliano Other [facility] 01-07-2020 zoster vaccine, live Eric Gilesgiuliano Other [facility] 05-05-2019 influenza virus vaccine, split virus (incl. purified surface antigen) Eric Villanueva Other [facility] [employer] Other 05-05-2019 influenza virus vaccine, unspecified formulation [facility] 04-07-2018 influenza virus vaccine, split virus (incl. purified surface antigen) Eric Villanueva Other [facility] [employer] Other 04-07-2018 influenza virus vaccine, unspecified formulation [facility] 03-21-2016 diphtheria, tetanus toxoids and acellular pertussis vaccine, unspecified formulation Eric Villanueva Other [facility] 12-01-2015 pneumococcal polysaccharide vaccine, 23 valent Eric Villanueva Other [facility] 03-23-2013 pneumococcal conjuga te vaccine, 13 valent Eric Gilesgiuliano Other [facility] pneumococcal Conjuga te, unspecified formulation; Translations: [Need for prophylactic vaccination against Streptococcus pneumoniae (pneumococcus)] Eric Villanueva Other [facility] Other Medications Current Medications Medication Drug Class(es) Dates Sig (Normalized) Sig (Original) Nevaeh Allergy 180 MG (11 sources) take 1 tablet by mouth once daily Nevaeh Allergy 180 MG 1 tablet Swallow whole with water; do not take with fruit juices. Orally Once a day Active Aspir-81 (20 sources) Aspir-81 Active aspirin 81 mg chewable tablet (20 sources) Platelet Aggregation Inhibitor, Nonsteroidal Anti-inflammatory Drug [...] day Active cholecalciferol 0.125 mg oral tablet (8 sources) Vitamin D Start: 02-12-2023 Cholecalcifero l [...] 0.1 mg/g vaginal cream (1 source) Start: 08-16-19 estradiol 0.1 mg/g vaginal cream 1 gm, Vaginal, MonThu, # 42.5 gm, Refills(s) 3, Pharmacy: [facility] [id number], 160, cm, 08/16/21 15:10:00 EST, Height/Length Dosing, 130, kg, 08/16/21 15:10:00 EST, Weight Dosing Start Date: 08/16/21 Status: Ordered ezetimibe 10 mg oral tablet (20 sources) Dietary Cholesterol Absorption Inhibitor Start: 08-07-19 take 1 tablet by mouth once daily Ezetimibe (Zetia) 10 mg Tablet Active 10 MG PO Daily August 07, 2022 1:00am Start: 08-07-2022 take 1 tablet by michael th twice daily Ezetimibe (Zetia) 10 mg Tablet Active 10 MG PO Twice daily August 07, 2022 1:00am fexofenadine hydrochloride 180 mg oral tablet (11 sources) Histamine-1 Receptor Antagonist Start: 02-12-2023 take 1 tablet by mouth once daily Fexofenadine (Nevaeh) 180 mg Tablet Active 180 MG PO Daily February 12, 2023 12:00am furosemide 20 mg oral tablet (1 source) Loop Diuretic Start: 12-04-2023 take 10 mg by mouth once daily Furosemide Active 10 MG PO daily December 04, 2023 12:00am gabapentin 300 mg oral capsule [...] Subcutaneous Active lisinopril 5 mg oral tablet (6 sources) Angiotensin Converting Enzyme Inhibitor Start: 12-04-2023 take 25 mg by mouth twice daily Lisinopril Active 25 MG PO Twice daily December 04, 2023 11:48am Start: 10-15-2023 End: 12-04-2023 take 5 mg by mouth once daily Lisinopril Active 5 MG P O Daily December 04, 2023 12:00am Novalin (1 source) Start: 08-16-2021 [...] / HYDROcodone bitartrate 5 mg oral tablet (10 sources) Opioid Agonist Start: 07-23-2021 End: 08-07-2022 take 1 tablet by mouth every six hours Hydrocodone-Acetam inophen Discontinued 1 TAB PO Q6H 10 July 23, 2021 August 07, 2022 8:18am cefdinir 300 mg oral capsule (10 sources) Cephalosporin Antibacterial Start: 12-31-2020 End: 07-23-2021 take 300 mg by mouth twice daily Cefdinir Discontinued 300 MG PO Twice daily 20 December 31, 2020 12:00am July 23, 2021 2:44pm cephalexin 500 mg oral capsule (20 sources) Cephalosporin Antibacterial Start: 07-23-2021 End: 08-07-2022 take 500 mg by mouth every eight hours Cephalexin Discontinued 500 MG PO Q8H 30 July 23, 2021 1:00am August 07, 2022 8:21am Start: 12-13-2020 End: 12-30-2020 take 500 mg by mouth twice daily Cephalexin Discontinued 500 MG PO Twice daily 12 04December 13, 2020 12:00am December 30, 2020 5:28am cyclobenzaprine hydrochloride 5 mg oral tablet (14 sources) Muscle Relaxant Start: 08-15-2023 End: 12-04-2023 take 5 mg by mouth once daily Cyclobenzaprine Discontinued 5 MG PO Daily August 15, 2023 1:00am December 04, 2023 11:46am Start: 08-14-2022 take 1 tablet by michael th every twenty-four hours Cyclobenzaprine HCl 5 MG 1 tablet as needed Orally Once a day for 30 days Jul, Not-Taking dapagliflozin 5 mg oral tablet (12 sources) Sodium-Glucose Cotransporter 2 Inhibitor Start: 12-13-2020 End: 12-31-2020 take 1 tablet by mouth once daily Dapagliflozin Propanediol (Farxiga) 5 mg tablet Discontinued 5 MG PO Daily December 13, 2020 12:00am December 31, 2020 2:36pm Durolane (20 sources) Start: 02-27-2022 Durolane Feb, 60 mg Insulin Nph And Regular Human (10 sources) Start: 12-30-2020 End: 02-12-2023 inject 25 [...] / nitrofurantoin, monohydrate 75 mg oral capsule (10 sources) Nitrofuran Antibacterial Start: 12-13-2020 End: 12-13-2020 take 100 mg by mouth twice daily Nitrofurantoin Monohyd/M-Cryst Discontinued 100 MG PO Twice daily December 13, 2020 12:00am December 13, 2020 9:52pm pregabalin 25 mg oral capsule (20 sources) Start: 10-10-2023 End: 10-15-2023 take 1 capsule by mouth once daily Pregabalin (Lyrica) 25 mg capsule Discontinued 25 MG PO Daily October 10, 2023 12:00am October 15, 2023 9:41am Start: 10-23-2022 End: 02-12-2023 take 75 mg by mouth once daily Pregabalin Discontinued 75 MG PO Daily October 23, 2022 12:00am February 12, 2023 9:57am Start: 08-28-2022 take 1 capsule by [facility] every twelve hours Lyrica 75 MG 1 capsule Orally Twice a day for 90 days Aug, Active promethazine hydrochloride 12.5 mg oral tablet (10 sources) Phenothiazine Start: 12-13-2020 End: 12-30-2020 take [...] 11-16-2020 Kenalog -40 mg October, 40 mg Payers Date Payer Category Payer Self-pay [id number] 1959 Medicare [id number] 1959 Unknown [id number] [id number] 1950 Unknown [id number] [id number] 1950 Unknown [id number] 2.16.840.1.450034.3.579.2.593 1950 Unknown [id number] 2.16.840.1.076342.3.579.2.593 1950 Unknown [id number] 2.16.840.1.666183.3.579.2.593 1950 Unknown [id number] 2.16.840.1.361498.3.579.2.593 1950 Unknown [id number] 2.16.840.1.303841.3.579.2.593 1950 Unknown [id number] 2.16.840.1.277605.3.579.2.593 1950 Unknown [id number] 2.16.840.1.716031.3.579.2.593 1950 Unknown [id number] 2.16.840.1.347293.3.579.2.593 1950 Unknown [id number] 2.16.840.1.808477.3.579.2.593 Private Health Insurance [facility] [id number] Unknown [employer] [id number] Unknown HCAP/HFA/FAP Active [id number] Unknown [id number] 2.16.840.1.446796.3.579.2.531 Unknown [id number] 2.16.840.1.748434.3.579.2.531 Unknown [id number] 2.16.840.1.097811.3.579.2.531 Unknown [id number] 2.16.840.1.170162.3.579.2.531 Unknown [id number] 2.16.840.1.006359.3.579.2.531 Unknown [id number] [id number] Plan of Treatment Date Care Activity Detail Author Start: 12-04-2023 Patient referral [facility] Work Phone: Start: 10-17-2023 X-ray of left knee XR knee LT 2V Fir [facility] Start: 10-17-2023 XR Knee - left [address] [facility] Start: 10-15-[address] [facility] Start: 05-28-[address] [facility] Start: 05-07-[address] [facility] Start: 02-12-[address] [facility] Start: 10-23-[address] [facility] Start: 08-07-[address] [facility] Comprehensive metabo lic 2000 panel - Serum or Plasma [facility] CT Chest WO and W contrast IV [facility] Patient Education Felter Non Brinda gnostic Block [facility] Work Phone: Patient referral [facility] Work Phone: [facility] Problems Active Problems Problem Classification Problem Date Documented Date Episodic/Chronic Abdominal pain (6 sources) Pelvic and perineal pain; Translations: [Pelvic and perineal pain] Episodic Acute bronchitis (7 sources) Acute bronchitis due to respiratory syncytial virus; Translations: [Acute bronchiolitis due to respiratory syncytial virus] Onset: 2 Episodic Asthma (3 sources) Uncomplicated asthma; Translations: [Unspecified asthma, uncomplicated] Chronic Chronic kidney disease (2 sources) Chronic kidney disease stage 3; Translations: [Stage 3 chronic kidney disease] 12-04-2023 Chronic Chronic obstructive pulmonary disease and bronchiectasis (4 sources) Bronchitis, not specified as acute or chronic; Translations: [Bronchitis] Onset: 2 Resolved: 2 Episodic Congestive heart failure; nonhypertensive (4 sources) Chronic diastolic (congestive) heart failure; Translations: [Acute diastolic (congestive) heart failure] Onset: 4 Chronic Coronary atherosclerosis and other heart disease (4 sources) Atherosclerotic heart disease of [place] coronary artery without angina pectoris; Translations: [Unstable angina] Onset: 2 Chronic Deficiency and other anemia (1 source) Anemia; Translations: [Anemia, unspecified] 12-04-2023 Episodic Deficiency and other anemia (1 source) Anemia, unspecified; Translations: [Anemia, unspecified] 12-04-2023 Episodic Diabetes mellitus with complications (20 sources) Type 2 diabetes mellitus; Translations: [Type 2 diabetes mellitus with hyperglycemia] Onset: 3 Chronic Diabetes mellitus without complication (4 sources) Diabetes mellitus; Translations: [Type 2 diabetes mellitus without complication] Onset: 9 08-16-2021 Chronic Diabetes mellitus without complication (10 sources) Hyperglycemia; Translations: [Hyperglycemia, unspecified] 12-13-2020 Episodic [...] and colitis, unspecified Episodic Nonspecific chest pain (18 sources) Chest pain, unspecified; Translations: [Chest pain] Onset: 2 Episodic Osteoarthritis (20 sources) Osteoarthritis of left knee joint; Translations: [Unilateral primary osteoarthritis, left knee] Onset: 1 Resolved: 2 Chronic Other acquired deformities (20 sources) Lumbar spondylolisthesis; Translations: [Spondylolisthesis, lumbar region] Episodic Other aftercare (20 sources) Long-term current use of insulin; Translations: [care home (current) use of insulin] Episodic Other aftercare (2 sources) 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 Episodic Other circulatory [...] upper limb] Chronic Other nervous system disorders (11 sources) Other chronic pain; Translations: [Other chronic pain] Onset: 2 Resolved: 2 Chronic Other nervous system disorders (18 sources) Carpal tunnel syndrome; Translations: [Carpal tunnel syndrome, left upper limb] Chronic Other nervous system disorders (1 source) Carpal tunnel syndrome, left upper limb Chronic Other nervous system disorders (1 source) Other chronic pain; Translations: [Other chronic pain] Onset: 3 Chronic Other non-traumatic joint disorders (11 sources) Pain in left knee; Translations: [Left knee pain] Onset: 1 Resolved: 2 Episodic Other non-traumatic joint disorders (1 source) [...] subcutaneous tissue, unspecified Episodic Other skin disorders (9 sources) Localized swelling, mass and lump, right upper limb; Translations: [Mass of right axilla] 09-04-2023 Episodic Other skin disorders (5 sources) Mass of chest wall; Translations: [Localized swelling, mass and lump, trunk] 09-04-2023 Episodic Other skin disorders (5 sources) Loss of hair; Translations: [Nonscarring hair loss, unspecified] 09-04-2023 Episodic Other skin disorders (4 sources) Nonscarring hair loss, unspecified; Translations: [Alopecia, unspecified] 09-04-2023 Episodic Other skin disorders (4 sources) Localized swelling, mass and lump, trunk; Translations: [Swelling, mass, or lump in chest] 09-04-2023 Episodic Otitis media and related conditions (3 sources) Chronic nonsuppurative otitis media of right ear; Translations: [Other chronic nonsuppurative otitis media, right ear] Chronic Septicemia (except in labor) (10 sources) Sepsis; Translations: [Sepsis, unspecified organism] 12-30-2020 Episodic Skin and subcutaneous tissue infections (10 sources) Cellulitis of scalp; Translations: [Cellulitis of [...] left knee] Onset: 3 Urinary tract infections (20 sources) Urinary tract infectious disease; Translations: [Urinary tract infection, site not specified] 07-23-2021 Episodic Past or Other Problems Problem Classification Problem Date Documented Da te Episodic/Chronic Other aftercare (1 source) Other fpc (current) drug therapy; Translations: [OTH FPC CURRENT DRUG THERAPY] Onset: 06-14-2022 Episodic Other lower respiratory disease (3 sources) Shortness of breath; Translations: [SHORTNESS OF BREATH] Onset: 06-10-2022 Episodic Other lower respiratory disease (1 source) Dyspnea, unspecified; Translations: [DYSPNEA UNSPECIFIED] Onset: 01-28-2022 Episodic Other non-traumatic joint disorders (4 sources) [...] Lumbar pain M54.50 Onset: 03-12-2022 Resolved: 03-12-2022 Procedures Date Procedure Procedure Detail Performing Clinician [...] 10-23-2022 Injection of spinal epidural space MD Garrison Bell Work Phone: Start: 10-09-2022 Plain X-ray of left wrist MD Garrison Bell Work Phone: Start: 08-07-2022 Epidural injection o f lumbar spine using fluoroscopic guidance MD Garrison Bell Work Phone: Appendectomy ZENA POTTER Cholecystectomy ZENA ANAYA Hysterectomy ZENA POTTER Results Test Name Value Interpretation Reference Range Facility [id number] 36 Regarding lab result s from 12/09/2023: MD Lorenza Atkinson MA Please reassure her that her serum creatinine has improved slightly and appears to have stabilized; will not make any changes to her medical regimen at this time Please repeat a BMP in 2 weeks Thank you Spoke with patient and made her aware. She will have repeat BMP in 2 weeks. Order faxed to [facility]. [facility] 36on 12-03-2023 36 Regarding lab result s from 11/29/2023: MD Lorenza Atkinson MA Please let her know her s.cr is mildly elevated; would like her to decrease lasix to 10 mg (1/2 a tablet) daily and repeat BMP in 5 days Thanks Spoke with patient and made her aware. BMP sent to [facility]. She will have drawn on Saturday, 12/08. [facility] Estimated glomerular filtrat ion rate (GFR) non- Americanon 11-29-2023 GFR/1.73 sq M.predicted among non-blacks MDRD (S/P/Bld) [Vol rate/Area] 37 mL/min/{1.73_m2} >=[address] [facility] Laboratory - Chemistry and C hemistry - challengeon 11-29-2023 Calcium [Mass/Vol] 9.0 mg/dL 8.5-10.1 [facility] Chloride [Moles/Vol] 104 mmol/L 98-[address] [facility] CO2 [Moles/Vol] 28.5 mmol/L 21.0-32.0 [facility] Creatinine [Mass/Vol] 1.41 mg/dL 0.55-1.[address] [facility] GFR/1.73 sq M.predicted MDRD (S/P/Bld) [Vol rate/Area] 44 mL/min/{1.73_m2} >=[address] [facility] Glucose [Mass/Vol] 142 mg/dL 74-106 [facility] Potassium [Moles/Vol] 4.2 mmol/L 3.5-5.[address] [facility] Sodium [Moles/Vol] 140 mmol/L 136-145 [facility] Urea nitrogen [Mass/Vol] 31.0 mg/dL 7.0-18.[address] [facility] Urea nitrogen/Creatinine [Mass ratio] 22.0 mg/mg [facility] Serum or plasma anion gap de terminationon 11-29-2023 Anion gap [Moles/Vol] 11.7 mmol/L [facility] Office Visiton 11-25-2023 Follow-up visit [id number] Libra Noonan 1950 F Date Provider Department Center 11/25/2023 271-PLACIDO TORRES CARD [facility] Family History Problem Relation Age of Onset Rheumatic fever Mother Heart failure Mother Stroke Mother Other Mother Comments: She is unsure if this was a defibrillator Stroke Father Family Status - Relation Status Age at Mother Father Level of Service:78692 CO OFFICE/OUTPATIENT ESTABLISHED MOD MDM 30 MIN Normal [facility] 36on 11-11-2023 36 Patient called to report back to you after decreased carvedilol back down to 12.5mg. She isn't as dizzy. BP still around 90's/60's. She did stop Bumex also after last lab work. Any recommendations? Please advise. Thanks. [facility] 36on 11-06-2023 36 Patient called c/o weakness, nausea, and increased dizziness since increased carvedilol and adding Bumex s/p cath on 10/24. She had labs Saturday (in new media strategist). Her BP just now on the phone was 92/63, HR 69. Any recommendations? Please advise. [facility] 36 Spoke with patient a nd she will cut the 25mg tablets in half- for 12.5mg bid. I asked her to let me know if she doesn't feel better in a few days. Patient verbalized understanding. Called patient back a few minutes later after I saw message per Dr. Torres regarding her labs from 11/04/2023: MD Lorenza Atkinson MA Please let her know the diuresis has worsened her kidney function. Have her stop Bumex, and repeat BMP in 3 days If she is having any new or worsening symptoms, she is to let us know Thanks Patient then made aware to stop Bumex. [facility] Telephoneon 11-06-2023 Telephone [id number] Libra Noonan 1950 F Date Provider Department Center 11/06/2023 Jeanine-LORENZA DUTTON CARD [facility] Family History Problem Relation Age of Onset Rheumatic fever Mother Heart failure Mother Stroke Mother Other Mother Comments: She is unsure if this was a defibrillator Stroke Father Family Status - Relation Status Age at Mother Father [facility] Estimated glomerular filtrat ion rate (GFR) non- Americanon 11-04-2023 GFR/1.73 sq M.predicted among non-blacks MDRD (S/P/Bld) [Vol rate/Area] 28 mL/min/{1.73_m2} >=[address] [facility] Laboratory - Chemistry and C hemistry - challengeon 11-04-2023 Calcium [Mass/Vol] 9.4 mg/dL 8.5-10.1 [facility] Chloride [Moles/Vol] 101 mmol/L 98-[address] [facility] CO2 [Moles/Vol] 26.9 mmol/L 21.0-32.0 [facility] Creatinine [Mass/Vol] 1.79 mg/dL 0.55-1.[address] [facility] GFR/1.73 sq M.predicted MDRD (S/P/Bld) [Vol rate/Area] 34 mL/min/{1.73_m2} >=[address] [facility] Glucose [Mass/Vol] 191 mg/dL 74-106 [facility] Potassium [Moles/Vol] 4.0 mmol/L 3.5-5.[address] [facility] Sodium [Moles/Vol] 138 mmol/L 136-145 [facility] Urea nitrogen [Mass/Vol] 69.0 mg/dL 7.0-18.[address] [facility] Urea nitrogen/Creatinine [Mass ratio] 38.5 mg/mg [facility] Serum or plasma anion gap de terminationon 11-04-2023 Anion gap [Moles/Vol] 14.1 mmol/L [facility] ANESon 10-25-2023 ANES -- Attestation signed by Placido Torres MD at 10/25/2023 9:13 AM Placido Torres MD, MPH, [facility], [facility], [facility] Interventional Cardiology Pager Email: [email or web address] Patient: Libra Noonan Procedure Information Date/Time: 10/25/23 1100 Procedure: Coronary angiography (Bilateral) - WILL NEED TO ADJUST INSULIN Location: [facility] POLICY ADVISER 3 / [facility] (Cath) Providers: Placido Torres MD Clinical information reviewed: Allergies Meds OB Status Physical Exam Airway Mallampati: III TM distance: >3 FB Neck ROM: full Cardiovascular Rhythm: regular Rate: normal Dental Pulmonary Abdominal (+) obese Anesthesia Plan ASA 3 Anesthetic plan and risks discussed with patient. Use of blood products discussed with patient who. Plan discussed with attending. Additional Equipment Requests Normal [facility] HPon 10-25-2023 HP -- Attestation signed by Placido Torres MD at 10/25/2023 9:13 AM Placido Torres MD, MPH, [facility], [facility], [facility] Interventional Cardiology Pager Email: [email or web address] H&P reviewed. The patient was examined and there are no changes to the H&P. The patient will be receiving pre- and post-cath hydration for her elevated creatinine. Nuclear stress test shows moderate sized area of moderately decreased uptake in the anterior wall extending to the apex, LAD distribution which demonstrates partial redistribution, consider an area of partially reversible ischemia. Will proceed with RHC/Cors. The procedure was explained to the patient. The risks and benefits of the procedure were explained to the patient who showed understanding and with full capacity elected to proceed with the procedure. All questions were addressed and answered. Savita Becker MD Bread Wrapper Operator - PGY5 [facility] NURSNOTEon 10-25-[address] Pedroza notifi ed of pt tearfully in pain at right internal jugular site. RN currently holding pressure to stop oozing. Dr. Pedroza assessed patient and ordered pt to stay an extra hour before discharge and to monitor site. He verbalized site looked normal. [facility] NURSNOTE RN educated pt on d/ c instructions. RN encouraged pt to voice any questions or concerns. Pt verbalizes no questions or concerns at this time. Pt was wheeled off of unit with all of belongings. [facility] Orders Onlyon 10-25-2023 Orders Only [id number] Libra Noonan 1950 F Date Provider Department Center 10/25/2023 KENDRA MAI [facility] Heart[facility] Family History Problem Relation Age of Onset Rheumatic fever Mother Heart failure Mother Stroke Mother Other Mother Comments: She is unsure if this was a defibrillator Stroke Father Family Status - Relation Status Age at Mother Father [facility] Basophils Auto (Bld) [#/Vol] on 10-17-2023 Basophils (Bld) [#/Vol] 0.0 10 3/uL 0.0-0.[address] [facility] Basophils/100 WBC Auto (Bld) on 10-17-2023 Basophils/100 WBC (Bld) 0.6 % 0.2-2.[address] [facility] Cholesterol in LDL Calc [Mas s/Vol]on 10-17-2023 Cholesterol in LDL [Mass/Vol] 44.0 mg/dL [facility] Comment on above: <100 mg/dl [id number] 0-129 mg/dl NEAR OR ABOVE [id number] mg/dl BORDERLINE [id number] mg/dl HIGH>190 mg/dl VERY HIGH Cholesterol in VLDL Calc [Ma ss/Vol]on 10-17-2023 Cholesterol in VLDL [Mass/Vol] 13.6 mg/dL [facility] Eosinophils/100 WBC Auto (Bl d)on 10-17-2023 Eosinophils/100 WBC (Bld) 1.4 % 0.9-7.[address] [facility] Erythrocyte distribution wid th Auto (RBC) [Ratio]on 10-17-2023 Erythrocyte distribution width (RBC) [Ratio] 12.0 % 11.0-15.[address] [facility] Estimated glomerular filtrat ion rate (GFR) non- Americanon 10-17-2023 GFR/1.73 sq M.predicted among non-blacks MDRD (S/P/Bld) [Vol rate/Area] 42 mL/min/{1.73_m2} >=[address] [facility] Globulin Calc (S) [Mass/Vol] on 10-17-2023 Globulin (S) [Mass/Vol] 3.6 g/dL [facility] Glucose mean value [Mass/vol ume] in Blood Estimated from glycated hemoglobinon 10-17-2023 Average glucose Estimated from glycated hemoglobin (Bld) [Mass/Vol] 177 mg/dL [facility] Hematocrit Auto (Bld) [Volum e fraction]on 10-17-2023 Hematocrit (Bld) [Volume fraction] 35.3 % 36.0-48.[address] [facility] Hemoglobin [Mass/volume] in Bloodon 10-17-2023 Hemoglobin (Bld) [Mass/Vol] 11.1 g/dL 12.0-16.[address] [facility] Laboratory - Chemistry and C hemistry - challengeon 10-17-2023 Albumin [Mass/Vol] 3.6 g/dL 3.4-5.0 [facility] ALP [Catalytic activity/Vol] 105 U/L 46-[address] [facility] ALT [Catalytic activity/Vol] 30 U/L 14-[address] [facility] AST [Catalytic activity/Vol] 17 U/L 15-[address] [facility] Bilirubin [Mass/Vol] 0.5 mg/dL 0.2-1.[address] [facility] Calcium [Mass/Vol] 9.4 mg/dL 8.5-10.1 [facility] Chloride [Moles/Vol] 105 mmol/L 98-[address] [facility] Cholesterol [Mass/Vol] 122 mg/dL <=[address] [facility] Cholesterol in HDL [Mass/Vol] 65 mg/dL 40-[address] [facility] Comment on above: > or =60 mg/dl - LOW CARDIOVASCULAR RISK<40 mg/dl - HIGH CARDIOVASCULAR RISK CO2 [Moles/Vol] 26.7 mmol/L 21.0-32.0 [facility] Creatinine [Mass/Vol] 1.25 mg/dL 0.55-1.[address] [facility] GFR/1.73 sq M.predicted MDRD (S/P/Bld) [Vol rate/Area] 51 mL/min/{1.73_m2} >=[address] [facility] Glucose [Mass/Vol] 212 mg/dL 74-106 [facility] Potassium [Moles/Vol] 4.7 mmol/L 3.5-5.[address] [facility] Protein [Mass/Vol] 7.2 g/dL 6.4-8.2 [facility] Sodium [Moles/Vol] 141 mmol/L 136-145 [facility] Triglyceride [Mass/Vol] 68 mg/dL <=[address] [facility] TSH Qn 2.291 m[IU]/L 0.358-3.[address] [facility] Urea nitrogen [Mass/Vol] 30.0 mg/dL 7.0-18.[address] [facility] Urea nitrogen/Creatinine [Mass ratio] 24.0 mg/mg [facility] Laboratory - Hematology and Cell countson 10-17-2023 HbA1c (Bld) [Mass fraction] 7.8 % 4.5-6.[address] [facility] Comment on above: ADA RECOMMENDED LIMI T 4.0 - 6.0ADA THERAPEUTIC TARGET < 7.0ACTION SUGGESTED> 7.0 Immature granulocytes/100 WBC (Bld) 0.3 % 0.0-0.[address] [facility] Leukocytes [#/volume] correc nicholas for nucleated erythrocytes in Blood by Automated counon 10-17-2023 WBC corrected for nucl RBC Auto (Bld) [#/Vol] 7.2 10 3/uL 4.0-11.[address] [facility] Lymphocytes Auto (Bld) [#/Vo l]on 10-17-2023 Lymphocytes (Bld) [#/Vol] 2.1 10 3/uL 1.2-3.8 [facility] Lymphocytes/100 WBC Auto (Bl d)on 10-17-2023 Lymphocytes/100 WBC (Bld) 29.8 % 20.5-60.[address] [facility] MCH Auto (RBC) [Entitic mass ]on 10-17-2023 MCH (RBC) [Entitic mass] 29.7 pg 26.7-34.[address] [facility] MCHC Auto (RBC) [Mass/Vol]on 10-17-2023 MCHC (RBC) [Mass/Vol] 31.4 g/dL 29.9-35.[address] [facility] MCV Auto (RBC) [Entitic vol] on 10-17-2023 MCV (RBC) [Entitic vol] 94.4 fL 81.0-99.[address] [facility] Monocytes Auto (Bld) [#/Vol] on 10-17-2023 Monocytes (Bld) [#/Vol] 0.4 10 3/uL 0.3-0.[address] [facility] Monocytes/100 WBC Auto (Bld) on 10-17-2023 Monocytes/100 WBC (Bld) 6.1 % 1.7-12.[address] [facility] Neutrophils Auto (Bld) [#/Vo l]on 10-17-2023 Neutrophils (Bld) [#/Vol] 4.5 10 3/uL 1.4-6.[address] [facility] Neutrophils/100 WBC Auto (Bl d)on 10-17-2023 Neutrophils/100 WBC (Bld) 61.8 % 43.0-75.[address] [facility] [facility] No Panel Informationon 10-16 Eosinophils # (Auto) 0.1 10 3/uL 0.0-0.[address] [facility] Immature Granulocyte # (Auto) 0.02 10 3/uL 0.00-0.[address] [facility] Platelet mean volume Auto (B ld) [Entitic vol]on 10-17-2023 Platelet mean volume (Bld) [Entitic vol] 10.9 fL 9.5-13.[address] [facility] Platelets Auto (Bld) [#/Vol] on 10-17-2023 Platelets (Bld) [#/Vol] 214 10 3/uL 150-[address] [facility] RBC Auto (Bld) [#/Vol]on RBC (Bld) [#/Vol] 3.74 10 6/uL 4.20-5.40 [facility] Serum or plasma albumin/glob ulin mass ratioon 10-17-2023 Albumin/Globulin [Mass ratio] 1.0 {ratio} [facility] Serum or plasma anion gap de terminationon 10-17-2023 Anion gap [Moles/Vol] 14.0 mmol/L [facility] Serum or plasma total choles terol/high density lipoprotein (HDL) cholesterol mass helen 10-17-2023 Cholesterol.total/C holesterol in HDL [Mass ratio] 1.9 {ratio} [facility] Comment on above: 3.3 - 4.4 LOW RISK4. 4 - 7.1 AVERAGE RISK7.1 - 11.0 MODERATE RISK>11.0 HIGH RISK HPon 10-09-2023 [facility] Cardiology Clinic Note Chief Complaint: Patient here [...] a defibrillator Stroke Father Allergies Adhesive tape-silicones, Oxycodone-acetaminophe n, and Propoxyphene n-acetaminophen Medications Current Outpatient Medications: [...] imaging with reversib (more content not included)... Normal [facility] Office Visiton 10-09-2023 Follow-up visit [id number] Libra Noonan 1950 F Date Provider Department Center 10/09/2023 271-PLACIDO TORRES CARD [facility] Family History Problem Relation Age of Onset Rheumatic fever Mother Heart failure Mother Stroke Mother Other Mother Comments: She is unsure if this was a defibrillator Stroke Father Family Status - Relation Status Age at Mother Father Level of Service:71054 CO OFFICE/OUTPATIENT ESTABLISHED HIGH MDM 40 MIN Normal [facility] Orders Onlyon 10-09-2023 Orders Only [id number] Libra Noonan 1950 F Date Provider Department Center 10/09/2023 895-JOS EALBERTO DÍAZ CARD [facility] Family History Problem Relation Age of Onset Rheumatic fever Mother Heart failure Mother Stroke Mother Other Mother Comments: She is unsure if this was a defibrillator Stroke Father Family Status - Relation Status Age at Mother Father [facility] Office Visiton 09-13-2023 Follow-up visit [id number] Libra Noonan 1950 F Date Provider Department Center 09/13/2023 3848-DANIELA HENDRICKS [facility] Family History Problem Relation Age of Onset Rheumatic fever Mother Heart failure Mother Stroke Mother Other Mother Comments: She is unsure if this was a defibrillator Stroke Father Family Status - Relation Status Age at Mother Father Level of Service:37930 CO OFFICE/OUTPATIENT ESTABLISHED MOD MDM 30 MIN [facility] 36on 09-12-2023 36 Patient is scheduled for apt tomorrow with Dr. Hendricks. [facility] 36on 09-11-2023 36 Patient was seen in [facility] ED in Jul for chest pain. Says she's still having it often. She doesn't want to wait until 09/17 to see you in the office. Did you want testing prior to an office visit? I uploaded all the ED records into her new media strategist for your review. Please advise. Thanks. [facility] 36on 09-04-2023 36 I received a call fr nichole Bell's office. She asked me to reach out to Libra to get her scheduled for a follow up. She told me she's been having left-sided chest pain, and was evaluated in the ED recently. I LM on patient's VM asking her to return my call. [facility] Basophils Auto (Bld) [#/Vol] on 08-16-2023 Basophils (Bld) [#/Vol] 0.1 10 3/uL 0.0-0.[address] [facility] Basophils/100 WBC Auto (Bld) on 08-16-2023 Basophils/100 WBC (Bld) 0.9 % 0.2-2.[address] [facility] Eosinophils/100 WBC Auto (Bl d)on 08-16-2023 Eosinophils/100 WBC (Bld) 6.5 % 0.9-7.[address] [facility] Erythrocyte distribution wid th Auto (RBC) [Ratio]on 08-16-2023 Erythrocyte distribution width (RBC) [Ratio] 12.3 % 11.0-15.[address] [facility] Estimated glomerular filtrat ion rate (GFR) non- Americanon 08-16-2023 GFR/1.73 sq M.predicted among non-blacks MDRD (S/P/Bld) [Vol rate/Area] 44 mL/min/{1.73_m2} >=[address] [facility] Fibrin D-dimer [Presence] in Platelet poor plasma by Latex agglutinationon 08-16-2023 Fibrin D-dimer LA Ql (PPP) 0.72 mg/L FEU <=0.[address] [facility] Comment on above: RESULTS CALLED TO [...] on 08-16-2023 Globulin (S) [Mass/Vol] 3.7 g/dL [facility] Hematocrit Auto (Bld) [Volum e fraction]on 08-16-2023 Hematocrit (Bld) [Volume fraction] 36.1 % 36.0-48.[address] [facility] Hemoglobin [Mass/volume] in Bloodon 08-16-2023 Hemoglobin (Bld) [Mass/Vol] 11.6 g/dL 12.0-16.[address] [facility] Laboratory - Chemistry and C hemistry - challengeon 08-16-2023 Albumin [Mass/Vol] 3.1 g/dL 3.4-5.0 [facility] ALP [Catalytic activity/Vol] 100 U/L 46-[address] [facility] ALT [Catalytic activity/Vol] 22 U/L 14-[address] [facility] AST [Catalytic activity/Vol] 17 U/L 15-[address] [facility] Bilirubin [Mass/Vol] 0.6 mg/dL 0.2-1.[address] [facility] Calcium [Mass/Vol] 9.1 mg/dL 8.5-10.1 [facility] Chloride [Moles/Vol] 106 mmol/L 98-[address] [facility] CO2 [Moles/Vol] 28.5 mmol/L 21.0-32.0 [facility] Creatinine [Mass/Vol] 1.21 mg/dL 0.55-1.[address] [facility] GFR/1.73 sq M.predicted MDRD (S/P/Bld) [Vol rate/Area] 53 mL/min/{1.73_m2} >=[address] [facility] Glucose [Mass/Vol] 214 mg/dL 74-106 [facility] Lipase [Catalytic activity/Vol] 15.0 U/L 16.0-77.[address] [facility] Natriuretic peptide B (Bld) [Mass/Vol] 447.0 pg/mL <=900.[address] [facility] Potassium [Moles/Vol] 4.3 mmol/L 3.5-5.[address] [facility] Protein [Mass/Vol] 6.8 g/dL 6.4-8.2 [facility] Sodium [Moles/Vol] 144 mmol/L 136-145 [facility] Urea nitrogen [Mass/Vol] 23.0 mg/dL 7.0-18.[address] [facility] Urea nitrogen/Creatinine [Mass ratio] 19.0 mg/mg [facility] Laboratory - Hematology and Cell countson 08-16-2023 Immature granulocytes/100 WBC (Bld) 0.3 % 0.0-0.[address] [facility] Leukocytes [#/volume] correc nicholas for nucleated erythrocytes in Blood by Automated counon 08-16-2023 WBC corrected for nucl RBC Auto (Bld) [#/Vol] 7.0 10 3/uL 4.0-11.[address] [facility] Lymphocytes Auto (Bld) [#/Vo l]on 08-16-2023 Lymphocytes (Bld) [#/Vol] 1.7 10 3/uL 1.2-3.[address] [facility] Lymphocytes/100 WBC Auto (Bl d)on 08-16-2023 Lymphocytes/100 WBC (Bld) 24.4 % 20.5-60.[address] [facility] MCH Auto (RBC) [Entitic mass ]on 08-16-2023 MCH (RBC) [Entitic mass] 30.6 pg 26.7-34.[address] [facility] MCHC Auto (RBC) [Mass/Vol]on 08-16-2023 MCHC (RBC) [Mass/Vol] 32.1 g/dL 29.9-35.[address] [facility] MCV Auto (RBC) [Entitic vol] on 08-16-2023 MCV (RBC) [Entitic vol] 95.3 fL 81.0-99.[address] [facility] Monocytes Auto (Bld) [#/Vol] on 08-16-2023 Monocytes (Bld) [#/Vol] 0.4 10 3/uL 0.3-0.[address] [facility] Monocytes/100 WBC Auto (Bld) on 08-16-2023 Monocytes/100 WBC (Bld) 6.3 % 1.7-12.[address] [facility] Neutrophils Auto (Bld) [#/Vo l]on 08-16-2023 Neutrophils (Bld) [#/Vol] 4.3 10 3/uL 1.4-6.[address] [facility] Neutrophils/100 WBC Auto (Bl d)on 08-16-2023 Neutrophils/100 WBC (Bld) 61.6 % 43.0-75.[address] [facility] No Panel Informationon 08-16 Eosinophils # (Auto) 0.5 10 3/uL 0.0-0.[address] [facility] Immature Granulocyte # (Auto) 0.02 10 3/uL 0.00-0.[address] [facility] Troponin I High Sensitivity 12.0 pg/mL 4.0-51.[address] [facility] Comment on above: CUT-OFF POINTS HAVE BEEN ESTABLISHED BASED ON THE FOURTHUNIVERSAL DEFINITION OF MYOCARDIAL INFARCTION. THE UPPERREFERENCE LIMIT [...] volume (Bld) [Entitic vol] 10.3 fL 9.5-13.[address] [facility] Platelets Auto (Bld) [#/Vol] on 08-16-2023 Platelets (Bld) [#/Vol] 214 10 3/uL 150-[address] [facility] RBC Auto (Bld) [#/Vol]on RBC (Bld) [#/Vol] 3.79 10 6/uL 4.20-5.40 [facility] Serum or plasma albumin/glob ulin mass ratioon 08-16-2023 Albumin/Globulin [Mass ratio] 0.8 {ratio} [facility] Serum or plasma anion gap de terminationon 08-16-2023 Anion gap [Moles/Vol] 13.8 mmol/L [facility] Office Visiton 05-08-2023 Follow-up visit [id number] Libra Noonan Robyn 1950 F Date Provider Department Center 05/08/2023 RIMA VICK CARD [facility] Family History Problem Relation Age of Onset Rheumatic fever Mother Heart failure Mother Stroke Mother Other Mother Comments: She is unsure if this was a defibrillator Stroke Father Family Status - Relation Status Age at Mother Father Level of Service:69412 CO OFFICE/OUTPATIENT ESTABLISHED LOW MDM 20-29 MIN Reason for Visit and Comments: Follow-up [284016] Hypertension [557939] Coronary Artery Disease [187] Hyperlipidemia [182] Normal [facility] XR lumbar spine AP/LAT/FLX/E XTon 04-23-2023 XR lumbar spine AP/LAT/FLX/EXT [facility] Main [place] [id number] XRay Report Signed Patient: Libra Noonan MR#: [id number] : 1950 Acct:[id number] Age/Sex: 72 / F ADM Date: 04/23/23 Loc: [facility] Room: Type: [facility] Attending Dr: Eric Villanueva MD Copies [...] Jacinto Bolden M.D.04/23/2023 3:43 PM Dictation Location: [place] [address] Transcribed By: [facility] 04/23/23 1543 Dictated By: Jacinto Bolden DO 04/23/23 1539 Signed By: 04/23/23 1543 Normal [facility] CBC AUTO DIFFon 11-06-2022 BASO # 0.0 103/ul Normal 0.0-0.[address] [facility] Comment on above: Performed By: #### C BC #### [facility] [address] [place] [address] Dr. Dylan Santana Basophils/100 WBC (Bld) 0.2 % Normal 0.2-2.0 [facility] Comment on above: Performed By: #### C BC #### [facility] [address] [place] [address] Dr. Dylan Santana EO # 0.0 103/ul Normal 0.0-0.7 [facility] Comment on above: Performed By: #### C BC #### [facility] [address] [place] [address] Dr. Dylan Santana Eosinophils/100 WBC (Bld) 0.2 % Critically low 0.9-7.[address] [facility] Comment on above: Performed By: #### C BC #### [facility] [address] [place] [address] Dr. Dylan Santana Erythrocyte distribution width (RBC) [Ratio] 12.1 % Normal 11.0-15.[address] [facility] Comment on above: Performed By: #### C BC #### [facility] [address] [place] [address] Dr. Dylan Santana Hematocrit (Bld) [Volume fraction] 42.7 % Normal 36.0-48.[address] [facility] Comment on above: Performed By: #### C BC #### [facility] [address] [place] [address] Dr. Dylan Santana Hemoglobin (Bld) [Mass/Vol] 13.9 g/dL Normal 12.0-16.[address] [facility] Comment on above: Performed By: #### C BC #### [facility] [address] [place] [address] Dr. Dylan Santana IG # 0.05 10e3/ul Critically high 0.00-0.03 [facility] Comment on above: Performed By: #### C BC #### [facility] [address] [place] [address] Dr. Dylan Santana IG % 0.5 % Normal 0.0-0.[address] [facility] Comment on above: Performed By: #### C BC #### [facility] [address] [place] [address] Dr. Dylan Santana LYMPH # 2.1 103/ul Normal 1.2-3.[address] [facility] Comment on above: Performed By: #### C BC #### [facility] [address] [place] [address] Dr. Dylan Santana Lymphocytes/100 WBC (Bld) 20.8 % Normal 20.5-60.[address] [facility] Comment on above: Performed By: #### C BC #### [facility] [address] [place] [address] Dr. Dylan Santana MANUAL DIFF REQ NO Normal [facility] Comment on above: Performed By: #### C BC #### [facility] [address] [place] [address] [address] Dylan Santana MCH (RBC) [Entitic mass] 30.1 pg Normal 26.7-34.0 [facility] Comment on above: Performed By: #### C BC #### [facility] [address] [place] [address] Dr. Dylan Santana MCHC (RBC) [Mass/Vol] 32.6 g/dL Normal 29.9-35.2 [facility] Comment on above: Performed By: #### C BC #### [facility] [address] [place] [address] Dr. Dylan Santana MCV (RBC) [Entitic vol] 92.4 fL Normal 81.0-99.0 [facility] Comment on above: Performed By: #### C BC #### [facility] [address] [place] [address] Dr. Dylan Santana MONO # 0.4 103/ul Normal 0.3-0.8 [facility] Comment on above: Performed By: #### C BC #### [facility] [address] [place] [address] Dr. Dylan Santana Monocytes/100 WBC (Bld) 3.8 % Normal 1.7-12.0 [facility] Comment on above: Performed By: #### C BC #### [facility] [address] [place] [address] Dr. Dylan Santana NEUT # 7.6 103/ul Critically high 1.4-6.5 [facility] Comment on above: Performed By: #### C BC #### [facility] [address] [place] [address] Dr. Dylan Santana Neutrophils/100 WBC (Bld) 74.5 % Normal 43.0-75.0 [facility] Comment on above: Performed By: #### C BC #### [facility] [address] [place] [address] Dr. Dylan Santana Platelet mean volume (Bld) [Entitic vol] 10.4 fL Normal 9.5-13.5 [facility] Comment on above: Performed By: #### C BC #### [facility] [address] [place] [address] [address] Dylan Santana PLT 228 103/ul Normal 150-[address] [facility] Comment on above: Performed By: #### C BC #### [facility] [address] [place] [address] Dr. Dylan Santana RBC 4.62 106/ul Normal 4.20-5.[address] [facility] Comment on above: Performed By: #### C BC #### [facility] [address] [place] [address] [address] Dylan Santana WBC 10.2 103/ul Normal 4.0-11.[address] [facility] Comment on above: Performed By: #### C BC #### [facility] [address] [place] [address] Dr. Dylan Santana GLYCOHEMOGLOBIN A1Con 2022 ADA RECOMMENDATION SEE BELOW Normal [facility] Comment on above: Result Comment: ADA RECOMMENDED LIMIT 4.0 - 6.0 ADA THERAPEUTIC TARGET < 7.0 ACTION SUGGESTED > 7.0 Performed By: #### A 1C #### [facility] [address] [place] [address] Dr. Dylan Santana Glucose [Mass/Vol] 214 mg/dL Normal [facility] Comment on above: Performed By: #### A 1C #### [facility] [address] [place] [address] Dr. Dylan Santana HbA1c (Bld) [Mass fraction] 9.1 % Critically high 4.5-6.[address] [facility] Comment on above: Performed By: #### A 1C #### [facility] [address] [place] [address] Dr. Dylan Santana LIPID PROFILEon 11-06-2022 CHOL-HDL RATIO NORM SEE BELOW Normal [facility] Comment on above: Result Comment: 3.3 - 4.4 LOW RISK 4.4 - 7.1 AVERAGE RISK 7.1 - 11.0 MODERATE RISK >11.0 HIGH RISK Performed By: #### L IPID #### [facility] [address] [place] [address] Dr. Dylan Santana Cholesterol [Mass/Vol] 142 mg/dL Normal <=[address] [facility] Comment on above: Performed By: #### L IPID #### [facility] [address] [place] [address] [address] Dylan Santana Cholesterol in HDL [Mass/Vol] 74 mg/dL Critically high 40-[address] [facility] Comment on above: Performed By: #### L IPID #### [facility] [address] [place] [address] [address] Dylan Santana Cholesterol in LDL [Mass/Vol] 49.4 mg/dL Normal [facility] Comment on above: Performed By: #### L IPID #### [facility] [address] [place] [address] [address] Dylan Santana Cholesterol.total/C holesterol in HDL [Mass ratio] 1.9 {ratio} Normal [facility] Comment on above: Performed By: #### L IPID #### [facility] [address] [place] [address] Dr. Dylan Santana HDL NORMAL > or = 60 mg/dl - LO W CARDIOVASCULAR RISK <40 mg/dl - HIGH CARDIOVASCULAR RISK Normal [facility] Comment on above: Performed By: #### L IPID #### [facility] [address] [place] [address] Dr. Dylan Santana LDL CALC NORMAL SEE BELOW Normal [facility] Comment on above: Result Comment: <100 mg/dl OPTIMAL 100 - 129 mg/dl NEAR OR ABOVE OPTIMAL 130 - 159 mg/dl BORDERLINE HIGH 160 - 189 mg/dl HIGH >190 mg/dl VERY HIGH Performed By: #### L IPID #### [facility] [address] [place] [address] Dr. Dylan Santana Triglyceride [Mass/Vol] 93 mg/dL Normal <=150 [facility] Comment on above: Performed By: #### L IPID #### [facility] [address] [place] [address] Dr. Dylan Santana VLDL CALC 18.6 mg/dL Normal [facility] Comment on above: Performed By: #### L IPID #### [facility] [address] [place] [address] [address] Dylan Santana PROF CHEM 8 (BAS METB)on Anion gap [Moles/Vol] 12.8 mmol/L Normal [facility] Comment on above: Performed By: #### C BC #### [facility] [address] [place] [address] [address] Dylan Santana Calcium [Mass/Vol] 9.5 mg/dL Normal 8.5-10.1 [facility] Comment on above: Performed By: #### C BC #### [facility] [address] [place] [address] [address] Dylan Santana Chloride [Moles/Vol] 105 mmol/L Normal 98-[address] [facility] Comment on above: Performed By: #### C BC #### [facility] [address] [place] [address] [address] Dylan Santana CO2 [Moles/Vol] 28.1 mmol/L Normal 21.0-32.0 [facility] Comment on above: Performed By: #### C BC #### [facility] [address] [place] [address] [address] Dylan Santana Creatinine [Mass/Vol] 1.29 mg/dL Critically high 0.55-1.[address] [facility] Comment on above: Performed By: #### C BC #### [facility] [address] [place] [address] [address] Dylan Santana EGFR-AF PALESTINIAN 49 mL/min/1.73m2 Critically low >=[address] [facility] Comment on above: Performed By: #### C BC #### [facility] [address] [place] [address] [address] Dylan Santana EGFR-NON AF PALESTINIAN 41 mL/min/1.73m2 Critically low >=[address] [facility] Comment on above: Performed By: #### C BC #### [facility] [address] [place] [address] [address] Dylan Santana Glucose [Mass/Vol] 290 mg/dL Critically high 74-106 [facility] Comment on above: Performed By: #### C BC #### [facility] [address] [place] [address] [address] Dylan Santana Potassium [Moles/Vol] 4.9 mmol/L Normal 3.5-5.[address] [facility] Comment on above: Performed By: #### C BC #### [facility] [address] [place] [address] [address] Dylan Santana Sodium [Moles/Vol] 141 mmol/L Normal 136-145 [facility] Comment on above: Performed By: #### C BC #### [facility] [address] [place] [address] [address] Dylan Santana Urea nitrogen [Mass/Vol] 30.0 mg/dL Critically high 7.0-18.[address] [facility] Comment on above: Performed By: #### C BC #### [facility] [address] [place] [address] [address] Dylan Santana Urea nitrogen/Creatinine [Mass ratio] 23.3 mg/mg Normal [facility] Comment on above: Performed By: #### C BC #### [facility] [address] [place] [address] Dr. Dylan Santana XR knee LT 2Von 11-05-2022 XR knee LT 2V [facility] [place] [address] XRay Report Signed Patient: Libra Noonan MR#: [id number] : 1950 Acct:[id number] Age/Sex: 71 / F ADM Date: 11/05/22 Loc: [facility] Room: Type: [facility] Attending Dr: Zena García NP-C Copies [...] Swenson Jr., D.O.11/05/2022 4:16 PM Dictation Location: [place] [address] Transcribed By: [facility] 11/05/22 1616 Dictated By: Gavin Swenson Jr, DO 11/05/22 1615 Signed By: 11/05/22 1616 Normal [facility] XR SHOULDER LT 2V or >on XR [...] MARIE TINEO Date: 2022-07-26 16:54 Normal [facility] XR CHEST 2 Von 06-19-2022 XR [...] WEI REED Date: 2022-06-19 18:36 Normal [facility] BNPon 06-10-2022 Natriuretic peptide B (Bld) [Mass/Vol] 683.0 pg/mL Normal <=900.0 [facility] Comment on above: Performed By: #### L IPID, TSH, CMP #### [facility] [address] [place] [address] [address] Dylan Santana CBC AUTO DIFFon 06-10-2022 BASO # 0.0 103/ul Normal 0.0-0.[address] [facility] Comment on above: Performed By: #### C BC #### [facility] [address] [place] [address] [address] Dylan Santana BASO # 0.0 103/ul Normal 0.0-0.1 [facility] Comment on above: Performed By: #### C BC #### [facility] [address] [place] [address] [address] Dylan Santana Basophils/100 WBC (Bld) 0.6 % Normal 0.2-2.0 [facility] Comment on above: Performed By: #### C BC #### [facility] [address] [place] [address] Dr. Dylan Santana Basophils/100 WBC (Bld) 0.6 % Normal 0.2-2.0 [facility] Comment on above: Performed By: #### C BC #### [facility] [address] [place] [address] Dr. Dylan Santana EO # 0.3 103/ul Normal 0.0-0.7 [facility] Comment on above: Performed By: #### C BC #### [facility] [address] [place] [address] Dr. Dylan Santana EO # 0.3 103/ul Normal 0.0-0.7 [facility] Comment on above: Performed By: #### C BC #### [facility] [address] [place] [address] Dr. Dylan Santana Eosinophils/100 WBC (Bld) 5.0 % Normal 0.9-7.0 [facility] Comment on above: Performed By: #### C BC #### [facility] [facility] [address] [place] [address] Dr. Dylan Santana Eosinophils/100 WBC (Bld) 4.9 % Normal 0.9-7.0 [facility] Comment on above: Performed By: #### C BC #### [facility] [address] [place] [address] Dr. Dylan Santana Erythrocyte distribution width (RBC) [Ratio] 12.1 % Normal 11.0-15.[address] [facility] Comment on above: Performed By: #### C BC #### [facility] [address] [place] [address] Dr. Dylan Santana Erythrocyte distribution width (RBC) [Ratio] 12.2 % Normal 11.0-15.[address] [facility] Comment on above: Performed By: #### C BC #### [facility] [address] [place] [address] Dr. Dylan Santana Hematocrit (Bld) [Volume fraction] 39.3 % Normal 36.0-48.[address] [facility] Comment on above: Performed By: #### C BC #### [facility] [address] [place] [address] Dr. Dylan Santana Hematocrit (Bld) [Volume fraction] 36.2 % Normal 36.0-48.[address] [facility] Comment on above: Performed By: #### C BC #### [facility] [address] [place] [address] Dr. Dylan Santana Hemoglobin (Bld) [Mass/Vol] 12.9 g/dL Normal 12.0-16.[address] [facility] Comment on above: Performed By: #### C BC #### [facility] [address] [place] [address] Dr. Dylan Santana Hemoglobin (Bld) [Mass/Vol] 11.9 g/dL Critically low 12.0-16.[address] [facility] Comment on above: Performed By: #### C BC #### [facility] [address] [place] [address] Dr. Dylan Santana IG # 0.02 10e3/ul Normal 0.00-0.03 [facility] Comment on above: Performed By: #### C BC #### [facility] [address] [place] [address] Dr. Dylan Santana IG # 0.02 10e3/ul Normal 0.00-0.03 [facility] Comment on above: Performed By: #### C BC #### [facility] [address] [place] [address] Dr. Dylan Santana IG % 0.4 % Normal 0.0-0.5 [facility] Comment on above: Performed By: #### C BC #### [facility] [address] [place] [address] Dr. Dylan Santana IG % 0.4 % Normal 0.0-0.5 [facility] Comment on above: Performed By: #### C BC #### [facility] [address] [place] [address] Dr. Dylan Santana LYMPH # 1.4 103/ul Normal 1.2-3.8 [facility] Comment on above: Performed By: #### C BC #### [facility] [address] [place] [address] Dr. Dylan Santana LYMPH # 1.8 103/ul Normal 1.2-3.[address] [facility] Comment on above: Performed By: #### C BC #### [facility] [address] [place] [address] Dr. Dylan Santana Lymphocytes/100 WBC (Bld) 26.9 % Normal 20.5-60.[address] [facility] Comment on above: Performed By: #### C BC #### [facility] [address] [place] [address] Dr. Dylan Santana Lymphocytes/100 WBC (Bld) 34.8 % Normal 20.5-60.[address] [facility] Comment on above: Performed By: #### C BC #### [facility] [address] [place] [address] Dr. Dylan Santana MANUAL DIFF REQ NO Normal [facility] Comment on above: Performed By: #### C BC #### [facility] [address] [place] [address] Dr. Dylan Santana MANUAL DIFF REQ NO Normal [facility] Comment on above: Performed By: #### C BC #### [facility] [address] [place] [address] Dr. Dylan Santana MCH (RBC) [Entitic mass] 30.2 pg Normal 26.7-34.0 [facility] Comment on above: Performed By: #### C BC #### [facility] [address] [place] [address] Dr. Dylan Santana MCH (RBC) [Entitic mass] 30.2 pg Normal 26.7-34.0 [facility] Comment on above: Performed By: #### C BC #### [facility] [address] [place] [address] Dr. Dylan Santana MCHC (RBC) [Mass/Vol] 32.8 g/dL Normal 29.9-35.[address] [facility] Comment on above: Performed By: #### C BC #### [facility] [address] [place] [address] Dr. Dylan Santana MCHC (RBC) [Mass/Vol] 32.9 g/dL Normal 29.9-35.[address] [facility] Comment on above: Performed By: #### C BC #### [facility] [address] [place] [address] Dr. Dylan Santana MCV (RBC) [Entitic vol] 92.0 fL Normal 81.0-99.[address] [facility] Comment on above: Performed By: #### C BC #### [facility] [address] [place] [address] Dr. Dylan Santana MCV (RBC) [Entitic vol] 91.9 fL Normal 81.0-99.[address] [facility] Comment on above: Performed By: #### C BC #### [facility] [address] [place] [address] Dr. Dylan Santana MONO # 0.5 103/ul Normal 0.3-0.[address] [facility] Comment on above: Performed By: #### C BC #### [facility] [address] [place] [address] Dr. Dylan Santana MONO # 0.6 103/ul Normal 0.3-0.[address] [facility] Comment on above: Performed By: #### C BC #### [facility] [address] [place] [address] Dr. Dylan Santana Monocytes/100 WBC (Bld) 10.1 % Normal 1.7-12.[address] [facility] Comment on above: Performed By: #### C BC #### [facility] [address] [place] [address] Dr. Dylan Santana Monocytes/100 WBC (Bld) 12.5 % Critically high 1.7-12.[address] [facility] Comment on above: Performed By: #### C BC #### [facility] [address] [place] [address] Dr. Dylan Santana NEUT # 3.0 103/ul Normal 1.4-6.[address] [facility] Comment on above: Performed By: #### C BC #### [facility] [address] [place] [address] Dr. Dylan Santana NEUT # 2.4 103/ul Normal 1.4-6.[address] [facility] Comment on above: Performed By: #### C BC #### [facility] [address] [place] [address] Dr. Dylan Santana Neutrophils/100 WBC (Bld) 57.0 % Normal 43.0-75.[address] [facility] Comment on above: Performed By: #### C BC #### [facility] [address] [place] [address] Dr. Dylan Santana Neutrophils/100 WBC (Bld) 46.8 % Normal 43.0-75.[address] [facility] Comment on above: Performed By: #### C BC #### [facility] [address] [place] [address] Dr. Dylan Santana Platelet mean volume (Bld) [Entitic vol] 10.3 fL Normal 9.5-13.[address] [facility] Comment on above: Performed By: #### C BC #### [facility] [address] [place] [address] Dr. Dylan Santana Platelet mean volume (Bld) [Entitic vol] 10.1 fL Normal 9.5-13.[address] [facility] Comment on above: Performed By: #### C BC #### [facility] [address] [place] [address] Dr. Dylan Santana PLT 182 103/ul Normal 150-450 [facility] Comment on above: Performed By: #### C BC #### [facility] [address] [place] [address] Dr. Dylan Santana PLT 159 103/ul Normal 150-450 [facility] Comment on above: Performed By: #### C BC #### [facility] [address] [place], [place] [address] Dr. Dylan Santana RBC 4.27 106/ul Normal 4.20-5.[address] [facility] Comment on above: Performed By: #### C BC #### [facility] [address] [place], [place] [address] Dr. Dylan Santana RBC 3.94 106/ul Critically low 4.20-5.40 [facility] Comment on above: Performed By: #### C BC #### [facility] [address] [place] [address] [address] Dylan Santana WBC 5.2 103/ul Normal 4.0-11.[address] [facility] Comment on above: Performed By: #### C BC #### [facility] [address] [place] [address] [address] Dylan Santana WBC 5.1 103/ul Normal 4.0-11.[address] [facility] Comment on above: Performed By: #### C BC #### [facility] [address] [place] [address] [address] HEAD WO CONon [...] YONIS PACHECO Date: 2022-06-10 04:35 Normal [facility] Covid-19 PCR (CVDTBH)on 05-24 SARS-CoV-2 (COVID-19) RNA LUIS+probe Ql (Unsp spec) Not detected Normal NOT DETECTED [facility] Comment on above: Result Comment: When [...] for this test is supported by the [place] of [employer] and Human Service's declaration that [...] By: #### L IPID, TSH, CMP #### [facility] [address] [place] [address] Dr. Dylan Santana POINT OF CARE GLUCOSEon 05-24 Glucose [Mass/Vol] 169 mg/dL Critically high 74-106 [facility] Comment on above: Performed By: #### C BC #### [facility] [address] [place] [address] Dr. Dylan Santana PROF 14(COMP METB)on 022 Albumin [Mass/Vol] 3.5 g/dL Normal 3.4-5.0 [facility] Comment on above: Performed By: #### C MP, HSTROPN #### [facility] [address] [place] [address] [address] Dylan Santana Albumin/Globulin [Mass ratio] 0.9 {ratio} Normal [facility] Comment on above: Performed By: #### C MP, HSTROPN #### [facility] [address] [place] [address] [address] Dylan Santana ALP [Catalytic activity/Vol] 197 U/L Critically high 46-[address] [facility] Comment on above: Performed By: #### C MP, HSTROPN #### [facility] [address] [place] [address] [address] Dylan Santana ALT [Catalytic activity/Vol] 89 U/L Critically high 14-[address] [facility] Comment on above: Performed By: #### C MP, HSTROPN #### [facility] [address] [place] [address] Dr. Dylan Santana Anion gap [Moles/Vol] 10.1 mmol/L Normal [facility] Comment on above: Performed By: #### C MP, HSTROPN #### [facility] [address] [place] [address] [address] Dylan Santana AST [Catalytic activity/Vol] 50 U/L Critically high 15-[address] [facility] Comment on above: Performed By: #### C MP, HSTROPN #### [facility] [address] [place] [address] [address] Dylan Santana Bilirubin [Mass/Vol] 0.4 mg/dL Normal 0.2-1.[address] [facility] Comment on above: Performed By: #### C MP, HSTROPN #### [facility] [address] [address] [address] Dylan Santana Calcium [Mass/Vol] 9.2 mg/dL Normal 8.5-10.1 [facility] Comment on above: Performed By: #### C MP, HSTROPN #### [facility] [address] [address] [address] Dylan Santana Chloride [Moles/Vol] 101 mmol/L Normal 98-107 [facility] Comment on above: Performed By: #### C MP, HSTROPN #### [facility] [address] [place] [address] Dr. Dylan Santana CO2 [Moles/Vol] 28.1 mmol/L Normal 21.0-32.0 [facility] Comment on above: Performed By: #### C MP, HSTROPN #### [facility] [address] [place] [address] Dr. Dylan Santana Creatinine [Mass/Vol] 1.29 mg/dL Critically high 0.55-1.[address] [facility] Comment on above: Performed By: #### C MP, HSTROPN #### [facility] [address] [place] [address] Dr. Dylan Santana EGFR-AF PALESTINIAN 49 mL/min/1.73m2 Critically low >=[address] [facility] Comment on above: Performed By: #### C MP, HSTROPN #### [facility] [address] [place] [address] Dr. Dylan Santana EGFR-NON AF PALESTINIAN 41 mL/min/1.73m2 Critically low >=[address] [facility] Comment on above: Performed By: #### C MP, HSTROPN #### [facility] [address] [place] [address] Dr. Dylan Santana Globulin (S) [Mass/Vol] 3.9 g/dL Normal [facility] Comment on above: Performed By: #### C MP, HSTROPN #### [facility] [address] [place] [address] Dr. Dylan Santana Glucose [Mass/Vol] 231 mg/dL Critically high 74-106 [facility] Comment on above: Performed By: #### C MP, HSTROPN #### [facility] [address] [place] [address] Dr. Dylan Santana Potassium [Moles/Vol] 4.2 mmol/L Normal 3.5-5.[address] [facility] Comment on above: Performed By: #### C MP, HSTROPN #### [facility] [address] [place] [address] Dr. Dylan Santana Protein [Mass/Vol] 7.4 g/dL Normal 6.4-8.2 [facility] Comment on above: Performed By: #### C MP, HSTROPN #### [facility] [address] [address] [address] Dylan Santana Sodium [Moles/Vol] 135 mmol/L Critically low 136-145 [facility] Comment on above: Performed By: #### C MP, HSTROPN #### [facility] [address] [address] [address] Dylan Santana Urea nitrogen [Mass/Vol] 21.0 mg/dL Critically high 7.0-18.[address] [facility] Comment on above: Performed By: #### C MP, HSTROPN #### [facility] [address] [place] [address] Dr. Dylan Santana Urea nitrogen/Creatinine [Mass ratio] 16.3 mg/mg Normal [facility] Comment on above: Performed By: #### C MP, HSTROPN #### [facility] [address] [place] [address] Dr. Dylan Santana PROF CHEM 8 (BAS METB)on Anion gap [Moles/Vol] 9.2 mmol/L Normal [facility] Comment on above: Performed By: #### L IPID, TSH, CMP #### [facility] [address] [place] [address] Dr. Dylan Santana Calcium [Mass/Vol] 8.9 mg/dL Normal 8.5-10.1 [facility] Comment on above: Performed By: #### L IPID, TSH, CMP #### [facility] [address] [address] [address] Dylan Santana Chloride [Moles/Vol] 104 mmol/L Normal 98-[address] [facility] Comment on above: Performed By: #### L IPID, TSH, CMP #### [facility] [address] [address] [address] Dylan Santana CO2 [Moles/Vol] 27.8 mmol/L Normal 21.0-32.0 [facility] Comment on above: Performed By: #### L IPID, TSH, CMP #### [facility] [address] [address] [address] Dylan Santana Creatinine [Mass/Vol] 1.14 mg/dL Critically high 0.55-1.[address] [facility] Comment on above: Performed By: #### L IPID, TSH, CMP #### [facility] [address] [place] [address] Dr. Dylan Santana EGFR-AF PALESTINIAN 57 mL/min/1.73m2 Critically low >=[address] [facility] Comment on above: Performed By: #### L IPID, TSH, CMP #### [facility] [address] [place] [address] Dr. Dylan Santana EGFR-NON AF PALESTINIAN 47 mL/min/1.73m2 Critically low >=[address] [facility] Comment on above: Performed By: #### L IPID, TSH, CMP #### [facility] [address] [place] [address] Dr. Dylan Santana Glucose [Mass/Vol] 176 mg/dL Critically high 74-106 [facility] Comment on above: Performed By: #### L IPID, TSH, CMP #### [facility] [address] [place] [address] Dr. Dylan Santana Potassium [Moles/Vol] 4.0 mmol/L Normal 3.5-5.[address] [facility] Comment on above: Performed By: #### L IPID, TSH, CMP #### [facility] [address] [place] [address] Dr. Dylan Santana Sodium [Moles/Vol] 137 mmol/L Normal 136-145 [facility] Comment on above: Performed By: #### L IPID, TSH, CMP #### [facility] [address] [place] [address] Dr. Dylan Santana Urea nitrogen [Mass/Vol] 21.0 mg/dL Critically high 7.0-18.[address] [facility] Comment on above: Performed By: #### L IPID, TSH, CMP #### [facility] [address] [place] [address] Dr. Dylan Santana Urea nitrogen/Creatinine [Mass ratio] 18.4 mg/mg Normal [facility] Comment on above: Performed By: #### L IPID, TSH, CMP #### [facility] [address] [place] [address] Dr. Dylan Santana RESPIRATORY PANEL PLUSon Adenovirus Not detected Normal NOT DETECTED [facility] Comment on above: Performed By: #### C BC #### [facility] [address] [place] [address] Dr. Dylan Pastor. Parapertusis Not detected Normal NOT DETECTED [facility] Comment on above: Performed By: #### C BC #### [facility] [address] [place] [address] Dr. Dylan Pastor. Pertussis Not detected Normal NOT DETECTED [facility] Comment on above: Performed By: #### C BC #### [facility] [address] [place] [address] Dr. Dylan Santana Chlamydia Pneumoniae Not detected Normal NOT DETECTED [facility] Comment on above: Performed By: #### C BC #### [facility] [address] [place] [address] Dr. Dylan Santana Coronavirus 229E Not detected Normal NOT DETECTED [facility] Comment on above: Performed By: #### C BC #### [facility] [address] [place] [address] Dr. Dylan Santana Coronavirus HKU1 Not detected Normal NOT DETECTED [facility] Comment on above: Performed By: #### C BC #### [facility] [address] [place] [address] Dr. Dylan Santana Coronavirus NL63 Not detected Normal NOT DETECTED [facility] Comment on above: Performed By: #### C BC #### [facility] [address] [place] [address] Dr. Dylan Santana Coronavirus OC43 Not detected Normal NOT DETECTED [facility] Comment on above: Performed By: #### C BC #### [facility] [address] [place] [address] Dr. Dylan Santana Influenza A H1 2009 Not detected Normal NOT DETECTED [facility] Comment on above: Performed By: #### C BC #### [facility] [address] [address] [address] Dylan Santana Influenza A H3 Not detected Normal NOT DETECTED [facility] Comment on above: Performed By: #### C BC #### [facility] [address] [address] [address] Dylan Santana Influenza B Not detected Normal NOT DETECTED [facility] Comment on above: Performed By: #### C BC #### [facility] [address] [address] [address] Dylan Santana Metapneumovirus Not detected Normal NOT DETECTED [facility] Comment on above: Performed By: #### C BC #### [facility] [address] [place] [address] Dr. Dylan Santana Mycoplas. Pneumoniae Not detected Normal NOT DETECTED [facility] Comment on above: Performed By: #### C BC #### [facility] [address] [place] [address] Dr. Dylan Santana Parainfluenza 1 Not detected Normal NOT DETECTED [facility] Comment on above: Performed By: #### C BC #### [facility] [address] [place] [address] Dr. Dylan Santana Parainfluenza 2 Not detected Normal NOT DETECTED [facility] Comment on above: Performed By: #### C BC #### [facility] [address] [place] [address] Dr. Dylan Santana Parainfluenza 3 Not detected Normal NOT DETECTED [facility] Comment on above: Performed By: #### C BC #### [facility] [address] [place] [address] Dr. Dylan Santana Parainfluenza 4 Not detected Normal NOT DETECTED [facility] Comment on above: Performed By: #### C BC #### [facility] [address] [place] [address] [address] Dylan Santana Rhino/Enterovirus Not detected Normal NOT DETECTED [facility] Comment on above: Performed By: #### C BC #### [facility] [address] [place] [address] Dr. Dylan Santana RP2 Header 1 RESPIRATORY PANEL: VIRUSES Normal [facility] Comment on above: Performed By: #### C BC #### [facility] [address] [place] [address] Dr. Dylan Santana RP2 Header 2 RESPIRATORY PANEL: BACTERIA Normal [facility] Comment on above: Performed By: #### C BC #### [facility] [address] [place] [address] Dr. Dylan Santana RSV Detected Critically abnormal NOT DETECTED [facility] Comment on above: Performed By: #### C BC #### [facility] [address] [place] [address] Dr. Dyaln Santana SARS-CoV-2 (COVID-19) RNA LUIS+probe Ql (Unsp spec) Not detected Normal NOT DETECTED [facility] Comment on above: Performed By: #### C BC #### [facility] [address] [place] [address] Dr. Dylan Santana TROPONIN, HIGH SENSITIVITYon 06-10-2022 HSTROP 18.8 pg/mL Normal 4.0-51.[address] [facility] Comment on above: Result Comment: CUT- OFF POINTS HAVE BEEN ESTABLISHED BASED ON THE FOURTH UNIVERSAL DEFINITIONS OF MYOCARDIAL INFARCTION. THE UPPER REFERENCE LIMIT (URL) OF TROPONIN, DEFINED THE 99TH PERCENTILE OF cTnI DISTRIBUTION IN A REFERENCE POPULATION, HAS BEEN CONFIRMED THE DECISION THRESHOLD FOR IA DIAGNOSIS. Performed By: #### C MP, HSTROPN #### [facility] [address] [place] [address] Dr. Dylan Santana HSTROP 18.5 pg/mL Normal 4.0-51.3 [facility] Comment on above: Result Comment: CUT- OFF POINTS HAVE BEEN ESTABLISHED BASED ON THE FOURTH UNIVERSAL DEFINITIONS OF MYOCARDIAL INFARCTION. THE UPPER REFERENCE LIMIT (URL) OF TROPONIN, DEFINED THE 99TH PERCENTILE OF cTnI DISTRIBUTION IN A REFERENCE POPULATION, HAS BEEN CONFIRMED THE DECISION THRESHOLD FOR IA DIAGNOSIS. Performed By: #### L IPID, TSH, CMP #### [facility] [address] [place], [place] [address] Dr. Dylan Santana XR CHEST 1 Von [...] YONIS PACHECO Date: 2022-06-10 02:13 Normal [facility] ECHOCARDIO M/2D COMPLETEon 1 07-08-2021 ECHOCARDIO M/2D COMPLETE Patient: LIBRA NOONAN Exam Date: 05/08/2022 : 1950 Gender:F Ordering : [facility] Admission #: [id number] Family : Order #: [id number] CLICK HERE TO VIEW EXAM ECHOCARDIOGRAM REPORT [...] Capellan M.D. on 05/09/2022 at 20:[address] [facility] NM STRESS/REST MULTIon 03-08 NM STRESS/REST MULTI Patient: LIBRA NOONAN Exam Date: 03/08/2022 : 1950 Gender:F Ordering : DR GARRISON BELL M.D. Admission #: [id number] Family : Order #: [id number] CLICK HERE TO VIEW EXAM RADIOLOGY REPORT [...] DEFECT: LOCATION: Basal anterior. Mid-anterior. Apical anterior. [place]. SIZE: Medium (3-4 segments). SEVERITY: Moderate. TYPE: [...] Julien MD on 03/09/2022 at 11:[address] [facility] CBC AUTO DIFFon 01-24-2022 BASO # 0.0 103/ul Normal 0.0-0.[address] [facility] Comment on above: Performed By: #### C BC #### [facility] [address] [place], [place] [id number] Dr. Dylan Santana Basophils/100 WBC (Bld) 0.5 % Normal 0.2-2.[address] [facility] Comment on above: Performed By: #### C BC #### [facility] [address] [place] [address] Dr. Dylan Santana EO # 0.2 103/ul Normal 0.0-0.[address] [facility] Comment on above: Performed By: #### C BC #### [facility] [address] [place] [address] Dr. Dylan Santana Eosinophils/100 WBC (Bld) 2.8 % Normal 0.9-7.[address] [facility] Comment on above: Performed By: #### C BC #### [facility] [address] [place] [address] Dr. Dylan Santana Erythrocyte distribution width (RBC) [Ratio] 13.0 % Normal 11.0-15.[address] [facility] Comment on above: Performed By: #### C BC #### [facility] [address] [place] [address] Dr. Dylan Santana Hematocrit (Bld) [Volume fraction] 40.8 % Normal 36.0-48.[address] [facility] Comment on above: Performed By: #### C BC #### [facility] [address] [place] [address] Dr. Dylan Santana Hemoglobin (Bld) [Mass/Vol] 13.0 g/dL Normal 12.0-16.[address] [facility] Comment on above: Performed By: #### C BC #### [facility] [address] [place] [address] Dr. Dylan Santana IG # 0.04 10e3/ul Critically high 0.00-0.03 [facility] Comment on above: Performed By: #### C BC #### [facility] [address] [place] [address] Dr. Dylan Santana IG % 0.5 % Normal 0.0-0.5 [facility] Comment on above: Performed By: #### C BC #### [facility] [address] [place] [address] Dr. Dylan Santana LYMPH # 2.7 103/ul Normal 1.2-3.[address] [facility] Comment on above: Performed By: #### C BC #### [facility] [address] [place] [address] Dr. Dylan Santana Lymphocytes/100 WBC (Bld) 34.3 % Normal 20.5-60.[address] [facility] Comment on above: Performed By: #### C BC #### [facility] [address] [place] [address] Dr. Dylan Santana MANUAL DIFF REQ NO Normal [facility] Comment on above: Performed By: #### C BC #### [facility] [address] [place] [address] Dr. Dylan Santana MCH (RBC) [Entitic mass] 30.0 pg Normal 26.7-34.[address] [facility] Comment on above: Performed By: #### C BC #### [facility] [address] [place] [address] Dr. Dylan Santana MCHC (RBC) [Mass/Vol] 31.9 g/dL Normal 29.9-35.[address] [facility] Comment on above: Performed By: #### C BC #### [facility] [address] [place] [address] Dr. Dylan Santana MCV (RBC) [Entitic vol] 94.0 fL Normal 81.0-99.[address] [facility] Comment on above: Performed By: #### C BC #### [facility] [address] [place] [address] Dr. Dylan Santana MONO # 0.4 103/ul Normal 0.3-0.8 [facility] Comment on above: Performed By: #### C BC #### [facility] [address] [place] [address] Dr. Dylan Santana Monocytes/100 WBC (Bld) 5.1 % Normal 1.7-12.[address] [facility] Comment on above: Performed By: #### C BC #### [facility] [address] [place] [address] Dr. Dylan Santana NEUT # 4.4 103/ul Normal 1.4-6.[address] [facility] Comment on above: Performed By: #### C BC #### [facility] [address] [place] [address] Dr. Dylan Santana Neutrophils/100 WBC (Bld) 56.8 % Normal 43.0-75.[address] [facility] Comment on above: Performed By: #### C BC #### [facility] [address] [place] [address] Dr. Dylan Santana Platelet mean volume (Bld) [Entitic vol] 10.7 fL Normal 9.5-13.[address] [facility] Comment on above: Performed By: #### C BC #### [facility] [address] [place] [address] Dr. Dylan aSntana PLT 212 103/ul Normal 150-[address] [facility] Comment on above: Performed By: #### C BC #### [facility] [address] [place] [address] Dr. Dylan Santana RBC 4.34 106/ul Normal 4.20-5.[address] [facility] Comment on above: Performed By: #### C BC #### [facility] [address] [place] [address] Dr. Dylan Santana WBC 7.8 103/ul Normal 4.0-11.[address] [facility] Comment on above: Performed By: #### C BC #### [facility] [address] [place] [address] Dr. Dylan Santana FREE T4on 01-24-2022 Free T4 [Mass/Vol] 1.02 ng/dL Normal 0.76-1.46 [facility] Comment on above: Performed By: #### F T4 #### [facility] [address] [place] [address] Dr. Dylan Santana GLYCOHEMOGLOBIN A1Con 2021 ADA RECOMMENDATION SEE BELOW Normal [facility] Comment on above: Result Comment: ADA RECOMMENDED LIMIT 4.0 - 6.0 ADA THERAPEUTIC TARGET < 7.0 ACTION SUGGESTED > 7.0 Performed By: #### C BC #### [facility] [address] [address] [address] Dylan Santana Glucose [Mass/Vol] 189 mg/dL Normal [facility] Comment on above: Performed By: #### C BC #### [facility] [address] [address] [address] Dylan Santana HbA1c (Bld) [Mass fraction] 8.2 % Critically high 4.5-6.[address] [facility] Comment on above: Performed By: #### C BC #### [facility] [address] [address] [address] Dylan Santana LIPID PROFILEon 01-24-2022 CHOL-HDL RATIO NORM SEE BELOW Normal [facility] Comment on above: Result Comment: 3.3 - 4.4 LOW RISK 4.4 - 7.1 AVERAGE RISK 7.1 - 11.0 MODERATE RISK >11.0 HIGH RISK Performed By: #### L IPID, TSH, CMP #### [facility] [address] [address] [address] Dylan Santana Cholesterol [Mass/Vol] 235 mg/dL Critically high <=[address] [facility] Comment on above: Performed By: #### L IPID, TSH, CMP #### [facility] [address] [address] [address] Dylan Santana Cholesterol in HDL [Mass/Vol] 64 mg/dL Critically high 40-[address] [facility] Comment on above: Performed By: #### L IPID, TSH, CMP #### [facility] [address] [place] [address] Dr. Dylan Santana Cholesterol in LDL [Mass/Vol] 139.8 mg/dL Normal [facility] Comment on above: Performed By: #### L IPID, TSH, CMP #### [facility] [address] [address] [address] Dylan Santana Cholesterol.total/C holesterol in HDL [Mass ratio] 3.7 {ratio} Normal [facility] Comment on above: Performed By: #### L IPID, TSH, CMP #### [facility] [address] [address] [address] Dylan Santana HDL NORMAL > or = 60 mg/dl - LO W CARDIOVASCULAR RISK <40 mg/dl - HIGH CARDIOVASCULAR RISK Normal [facility] Comment on above: Performed By: #### L IPID, TSH, CMP #### [facility] [address] [address] [address] Dylan Santana LDL CALC NORMAL SEE BELOW Normal [facility] Comment on above: Result Comment: <100 mg/dl OPTIMAL 100 - 129 mg/dl NEAR OR ABOVE OPTIMAL 130 - 159 mg/dl BORDERLINE HIGH 160 - 189 mg/dl HIGH >190 mg/dl VERY HIGH Performed By: #### L IPID, TSH, CMP #### [facility] [address] [address] [address] Dylan Santana Triglyceride [Mass/Vol] 156 mg/dL Critically high <=[address] [facility] Comment on above: Performed By: #### L IPID, TSH, CMP #### [facility] [address] [address] [address] Dylan Santana VLDL CALC 31.2 mg/dL Normal [facility] Comment on above: Performed By: #### L IPID, TSH, CMP #### [facility] [address] [address] [address] Dylan Santana PROF 14(COMP METB)on 022 Albumin [Mass/Vol] 3.3 g/dL Critically low 3.4-5.0 [facility] Comment on above: Performed By: #### L IPID, TSH, CMP #### [facility] [address] [address] [address] Dylan Santana Albumin/Globulin [Mass ratio] 0.9 {ratio} Normal [facility] Comment on above: Performed By: #### L IPID, TSH, CMP #### [facility] [address] [address] [address] Dylan Santana ALP [Catalytic activity/Vol] 109 U/L Normal 46-[address] [facility] Comment on above: Performed By: #### L IPID, TSH, CMP #### [facility] [address] [address] [address] Dylan Santana ALT [Catalytic activity/Vol] 25 U/L Normal 14-[address] [facility] Comment on above: Performed By: #### L IPID, TSH, CMP #### [facility] [address] [place] [address] Dr. Dylan Santana Anion gap [Moles/Vol] 14.7 mmol/L Normal [facility] Comment on above: Performed By: #### L IPID, TSH, CMP #### [facility] [address] [place] [address] Dr. Dylan Santana AST [Catalytic activity/Vol] 12 U/L Critically low 15-[address] [facility] Comment on above: Performed By: #### L IPID, TSH, CMP #### [facility] [address] [place] [address] Dr. Dylan Santana Bilirubin [Mass/Vol] 0.6 mg/dL Normal 0.2-1.[address] [facility] Comment on above: Performed By: #### L IPID, TSH, CMP #### [facility] [address] [place] [address] Dr. Dylan Santana Calcium [Mass/Vol] 8.8 mg/dL Normal 8.5-10.1 [facility] Comment on above: Performed By: #### L IPID, TSH, CMP #### [facility] [address] [place] [address] Dr. Dylan Santana Chloride [Moles/Vol] 102 mmol/L Normal 98-107 [facility] Comment on above: Performed By: #### L IPID, TSH, CMP #### [facility] [address] [place] [address] Dr. Dylan Santana CO2 [Moles/Vol] 27.5 mmol/L Normal 21.0-32.0 [facility] Comment on above: Performed By: #### L IPID, TSH, CMP #### [facility] [address] [place] [address] Dr. Dylan Santana Creatinine [Mass/Vol] 1.14 mg/dL Critically high 0.55-1.[address] [facility] Comment on above: Performed By: #### L IPID, TSH, CMP #### [facility] [address] [address] [address] Dylan Santana EGFR-AF PALESTINIAN 57 mL/min/1.73m2 Critically low >=[address] [facility] Comment on above: Performed By: #### L IPID, TSH, CMP #### [facility] [address] [address] [address] Dylan Snatana EGFR-NON AF PALESTINIAN 47 mL/min/1.73m2 Critically low >=[address] [facility] Comment on above: Performed By: #### L IPID, TSH, CMP #### [facility] [address] [address] [address] Dylan Santana Globulin (S) [Mass/Vol] 3.7 g/dL Normal [facility] Comment on above: Performed By: #### L IPID, TSH, CMP #### [facility] [address] [place] [address] Dr. Dylan Santana Glucose [Mass/Vol] 249 mg/dL Critically high 74-106 [facility] Comment on above: Performed By: #### L IPID, TSH, CMP #### [facility] [address] [address] [address] Dylan Santana Potassium [Moles/Vol] 4.2 mmol/L Normal 3.5-5.[address] [facility] Comment on above: Performed By: #### L IPID, TSH, CMP #### [facility] [address] [address] [address] Dylan Santana Protein [Mass/Vol] 7.0 g/dL Normal 6.4-8.2 [facility] Comment on above: Performed By: #### L IPID, TSH, CMP #### [facility] [address] [address] [address] Dylan Santana Sodium [Moles/Vol] 140 mmol/L Normal 136-145 [facility] Comment on above: Performed By: #### L IPID, TSH, CMP #### [facility] [address] [address] [address] Dylan Santana Urea nitrogen [Mass/Vol] 20.0 mg/dL Critically high 7.0-18.[address] [facility] Comment on above: Performed By: #### L IPID, TSH, CMP #### [facility] [address] [address] [address] Dylan Santana Urea nitrogen/Creatinine [Mass ratio] 17.5 mg/mg Normal [facility] Comment on above: Performed By: #### L IPID, TSH, CMP #### [facility] [address] [address] [address] Dylan Santana TSHon 01-24-2022 TSH 3.673 uIU/mL Normal 0.358-3.740 [facility] Comment on above: Performed By: #### L IPID, TSH, CMP #### [facility] [address] [address] [address] Dylan Santana COVID Quick Testingon 2021 Result Negative [facility] 09-22-2021 Lab Reports [id number] CD:127 Normal [facility] Social History Date Type Detail Facility Start: 08-07-2022 End: 05-07-2023 Tobacco smoking status NHIS Never smoked tobacco (finding) [facility] Start: 1950 Sex Assigned At Female [facility] Unknown if ever smoked [facility] Other Sex Assigned At [facility] Tobacco smoking status Never [facility] Vital Signs Date Time Vital Sign Value Performing Clinician Facility 12-04-2023 11:38-0400 Body height 157.48 cm MD Garrison Bell Work Phone: [facility] 12-04-2023 11:38-040 Body mass index (BMI) [Ratio] 57 kg/m2 MD Garrison Bell Work Phone: [facility] 12-04-2023 11:38-040 Body weight 141.52 kg MD Garrison Bell Work Phone: [facility] 12-04-2023 11:38-0400 Diastolic blood pressure 80 mm[Hg] MD Garrison Bell Work Phone: [facility] 12-04-2023 11:38-0400 Heart rate 80 /min MD Garrison Bell Work Phone: [facility] 12-04-2023 11:38-0400 Systolic blood pressure 125 mm[Hg] MD Garrison Bell Work Phone: [facility] 10-15-2023 10:57-0400 Diastolic blood pressure 82 mm[Hg] MD Garrison Bell Work Phone: [facility] 10-15-2023 10:57-0400 Heart rate 81 /min MD Garrison Bell Work Phone: [facility] 10-15-2023 10:57-0400 Respiratory rate 16 /min MD Garrison Bell Work Phone: [facility] 10-15-2023 10:57-0400 SaO2% (BldA) [Mass fraction] 97 % MD Garrison Bell Work Phone: [facility] 10-15-2023 10:57-0400 Systolic blood pressure 147 mm[Hg] MD Garrison Bell Work Phone: [facility] 10-15-2023 10:16-0400 Inhaled oxygen flow rate 3 L/min MD Garrison Bell Work Phone: [facility] 10-15-2023 09:44-0400 Body height 157.48 cm MD Garrison Bell Work Phone: [facility] 10-15-2023 09:44-0400 Body weight 141.52 kg MD Garrison Bell Work Phone: [facility] 09-04-2023 11:24-0400 Body height 160.02 cm [facility] 09-04-2023 11:24-0400 Body mass index (BMI) [Ratio] 57 kg/m2 [facility] 09-04-2023 11:24-0400 Body weight 146.11 kg [facility] 09-04-2023 11:24-0400 Diastolic blood pressure 97 mm[Hg] [facility] 09-04-2023 11:24-0400 Heart rate 86 /min [facility] 09-04-2023 11:24-0400 SaO2% (BldA) [Mass fraction] 98 % [facility] 09-04-2023 11:24-0400 Systolic blood pressure 166 mm[Hg] [facility] 06-05-2023 11:30-0500 Body height 160.02 cm Garrison Bell Other [email or web address] [facility] Other 06-05-2023 11:30-0500 Body mass index (BMI) [Ratio] 55.62 kg/m2 Garrison Bell Other [facility] Other 06-05-2023 11:30-0500 Body weight 142.43 kg Garrison Bell Other [facility] Other 06-05-2023 11:30-0500 Diastolic blood pressure 78 mm[Hg] Garrison Bell Other [facility] Other 06-05-2023 11:30-0500 SaO2% (BldA) [Mass fraction] 98 % Garrison Bell Other [employer] Other 06-05-2023 11:30-0500 Systolic blood pressure 132 mm[Hg] Garrison Bell Other [facility] Other 05-28-2023 11:00-0500 Diastolic blood pressure 97 mm[Hg] MD Garrison Bell Work Phone: [facility] 05-28-2023 11:00-0500 Heart rate 79 /min MD Garrison Bell Work Phone: [facility] 05-28-2023 11:00-0500 Respiratory rate 16 /min MD Garrison Bell Work Phone: [facility] 05-28-2023 11:00-0500 SaO2% (BldA) [Mass fraction] 98 % MD Garrison Bell Work Phone: [facility] 05-28-2023 11:00-0500 Systolic blood pressure 173 mm[Hg] MD Garrison Bell Work Phone: [facility] 05-28-2023 10:15-0500 Inhaled oxygen flow rate 3 L/min MD Garrison Bell Work Phone: [facility] 05-28-2023 10:04-0500 Body height 157.48 cm MD Garrison Bell Work Phone: [facility] 05-28-2023 10:04-0500 Body weight 141.52 kg MD Garrison Bell Work Phone: [facility] 05-07-2023 10:15-0500 Diastolic blood pressure 87 mm[Hg] MD Garrison Bell Work Phone: [facility] 05-07-2023 10:15-0500 Heart rate 74 /min MD Garrison Bell Work Phone: [facility] 05-07-2023 10:15-0500 Respiratory rate 16 /min MD Garrison Bell Work Phone: [facility] 05-07-2023 10:15-0500 SaO2% (BldA) [Mass fraction] 95 % MD Garrison Bell Work Phone: [facility] 05-07-2023 10:15-0500 Systolic blood pressure 173 mm[Hg] MD Garrison Bell Work Phone: [facility] 05-07-2023 09:30-0500 Inhaled oxygen flow rate 3 L/min MD Garrison Bell Work Phone: [facility] 05-07-2023 08:40-0500 Body height 157.48 cm MD Garrison Bell Work Phone: [facility] 05-07-2023 08:40-0500 Body weight 141.52 kg MD Garrison Bell Work Phone: [facility] 03-06-2023 11:30-0400 Body height 160.02 cm Garrison Bell Other [employer] Other 03-06-2023 11:30-0400 Body mass index (BMI) [Ratio] 55.26 kg/m2 Garrison Bell Other [facility] [employer] Other 03-06-2023 11:30-0400 Body weight 141.52 kg Garrison Bell Other [facility] [employer] Other 03-06-2023 11:30-0400 Diastolic blood pressure 72 mm[Hg] Garrison Bell Other [facility] [employer] Other 03-06-2023 11:30-0400 Respiratory rate 12 /min Garrison Bell Other [facility] [employer] Other 03-06-2023 11:30-0400 Systolic blood pressure 118 mm[Hg] Garrison Bell Other [facility] [employer] Other 02-12-2023 11:10-0400 Diastolic blood pressure 80 mm[Hg] MD Garrison Bell Work Phone: [facility] 02-12-2023 11:10-0400 Heart rate 80 /min MD Garrison Bell Work Phone: [facility] 02-12-2023 11:10-0400 Respiratory rate 18 /min MD Garrison Bell Work Phone: [facility] 02-12-2023 11:10-0400 SaO2% (BldA) [Mass fraction] 96 % MD Garrison Bell Work Phone: [facility] 02-12-2023 11:10-0400 Systolic blood pressure 145 mm[Hg] MD Garrison Bell Work Phone: [facility] 02-12-2023 10:28-0400 Inhaled oxygen flow rate 3 L/min MD Garrison Bell Work Phone: [facility] 02-12-2023 09:59-0400 Body height 157.48 cm MD Garrison Bell Work Phone: [facility] 02-12-2023 09:59-0400 Body weight 92.07 kg MD Garrison Bell Work Phone: [facility] 12-05-2022 11:30-0400 Body height 160.02 cm Garrison Bell Other [facility] [employer] Other 12-05-2022 11:30-0400 Body mass index (BMI) [Ratio] 55.09 kg/m2 Garrison Bell Other [email or web address] [facility] Other 12-05-2022 11:30-0400 Body temperature 97.8 [degF] Garrison Bell Other [email or web address] [facility] [employer] Other 12-05-2022 11:30-0400 Body weight 141.07 kg Garrison Bell Other [employer] Other 12-05-2022 11:30-0400 Diastolic blood pressure 50 mm[Hg] Garrison Bell Other [employer] Other 12-05-2022 11:30-0400 Systolic blood pressure 92 mm[Hg] Garrison Bell Other [email or web address] [facility] [employer] Other 10-23-2022 09:42-0400 Diastolic blood pressure 80 mm[Hg] MD Garrison Bell Work Phone: [facility] 10-23-2022 09:42-0400 Heart rate 75 /min MD Garrison Bell Work Phone: [facility] 10-23-2022 09:42-0400 Respiratory rate 18 /min MD Garrison Bell Work Phone: [facility] 10-23-2022 09:42-0400 SaO2% (BldA) [Mass fraction] 98 % MD Garrison Bell Work Phone: [facility] 10-23-2022 09:42-0400 Systolic blood pressure 142 mm[Hg] MD Garrison Bell Work Phone: [facility] 10-23-2022 09:03-0400 Inhaled oxygen flow rate 3 L/min MD Garrison Bell Work Phone: [facility] 10-23-2022 08:15-0400 Body height 157.48 cm MD Garrison Bell Work Phone: [facility] 10-23-2022 08:15-0400 Body weight 141.97 kg MD Garrison Bell Work Phone: [facility] 10-09-2022 16:00-0400 Body height 160.02 cm Alkamarisabel Hankins Other [email or web address] [facility] [employer] Other 10-09-2022 16:00-0400 Body mass index (BMI) [Ratio] 55.26 kg/m2 Alka Hankins Other [employer] Other 10-09-2022 16:00-0400 Body weight 141.52 kg Alka Hankins Other [employer] Other 09-04-2022 12:30-0400 Body height 160.02 cm Garrison Bell Other [employer] Other 09-04-2022 12:30-0400 Body mass index (BMI) [Ratio] 55.26 kg/m2 Garrison Bell Other [employer] Other 09-04-2022 12:30-0400 Body weight 141.52 kg Garrison Bell Other [employer] Other 09-04-2022 12:30-0400 Diastolic blood pressure 82 mm[Hg] Garrison Bell Other [facility] [employer] Other 09-04-2022 12:30-0400 Systolic blood pressure 128 mm[Hg] Garrison Bell Other [facility] [employer] Other 08-07-2022 08:38-0500 Diastolic blood pressure 55 mm[Hg] MD Garrison Bell Work Phone: [facility] 08-07-2022 08:38-0500 Heart rate 78 /min MD Garrison Bell Work Phone: [facility] 08-07-2022 08:38-0500 Respiratory rate 16 /min MD Garrison Bell Work Phone: [facility] 08-07-2022 08:38-0500 SaO2% (BldA) [Mass fraction] 95 % MD Garrison Bell Work Phone: [facility] 08-07-2022 08:38-0500 Systolic blood pressure 130 mm[Hg] MD Garrison Bell Work Phone: [facility] [facility] 08-07-2022 07:59-0500 Inhaled oxygen flow rate 3 L/min MD Garrison Bell Work Phone: [facility] 08-07-2022 07:23-0500 Body height 157.48 cm MD Garrison Bell Work Phone: [facility] 08-07-2022 07:23-0500 Body weight 141.97 kg MD Garrison Bell Work Phone: [facility] 02-27-2022 14:15-0400 Body height 160.02 cm Zena García Other [email or web address] [facility] [employer] Other 02-27-2022 14:15-0400 Body mass index (BMI) [Ratio] 53.67 kg/m2 Zena García Other [employer] Other 02-27-2022 14:15-0400 Body weight 137.44 kg Zena García Other [employer] Other 02-06-2022 15:00-0400 Body height 160.02 cm Zena García Other [employer] Other 02-06-2022 15:00-0400 Body mass index (BMI) [Ratio] 53.67 kg/m2 Zena García Other [employer] Other 02-06-2022 15:00-0400 Body weight 137.44 kg Zena García Other [employer] Other 01-03-2022 10:35-0400 Body height 160.02 cm Jazz Melendezmond Other [employer] Other 01-03-2022 10:35-0400 Body mass index (BMI) [Ratio] 53.67 kg/m2 Jazz Lee Ann Other [employer] Other 01-03-2022 10:35-0400 Body temperature 98.5 [degF] Jazz Lee Ann Other [employer] Other 01-03-2022 10:35-0400 Body weight 137.44 kg Jazz Lee Ann Other [employer] Other 01-03-2022 10:35-0400 SaO2% (BldA) [Mass fraction] 95 % Jazz Lee Ann Other [employer] Other 11-06-2021 15:45-0400 Body height 160.02 cm Zena García Other [employer] Other 03-22-2021 10:45-0400 Body height 160.02 cm Zena García Other [employer] Other 03-22-2021 10:45-0400 Body mass index (BMI) [Ratio] 50.3 kg/m2 Zena García Other [employer] Other 03-22-2021 10:45-0400 Body weight 128.82 kg Zena García Other [employer] Other Clinical Notes 03-22-2021 to 11-25-2023 Note Date & Type Note Facility 11-25-2023 Note [facility] Cardiology Clinic Note Chief Complaint: Patient here for follow up cath. She is very SOB with very minimal exertion. Stopped Bumex and still gets dizzy when bending over or moving quickly. BP still averaging around 96/62 at home. Had BMP 2 weeks s/p cath. C/o left hand finger numbness s/p cath. HPI: Libra Noonan is a 72 y.o. female With heart failure with preserved ejection fraction here in follow-up after recent cardiac catheterization. She had felt improved after initiation of Bumex; however this has worsened her kidney functions. Pertinently, her blood pressure at home has been checked with a wrist monitor which is inaccurate; today her blood pressure was in the 140s, her wrist device stated it was in the 90s. Cardiology ROS: Review of Systems Constitutional: Positive for malaise/fatigue. Cardiovascular: Positive for chest pain ( ache ), dyspnea on exertion, leg swelling and palpitations. Respiratory: Positive for cough, sleep disturbances due [...] by mouth at bedtime., Disp: , Rfl: bumetanide (Bumex) 1 mg tablet, Take 1 tablet (1 mg) by mouth in the morning and at bedtime., Disp: 60 tablet, Rfl: 1 carvedilol (Coreg) 25 mg tablet, Take 1 tablet (25 mg) by mouth with breakfast and with evening meal., Disp: 180 tablet, Rfl: 3 cholecalciferol (Vitamin D-3) 50 [...] and before evening meal., Disp: , Rfl: lisinopril 5 mg tablet, Take 1 tablet (5 mg) by mouth in the morning., Disp: 90 tablet, Rfl: 3 Last Recorded Vitals BP 140/80 (BP Location: Left wrist, Patient Position: Sitting) Pulse 81 Ht 1.575 m (5' 2 ) Wt (!) 142 kg (314 lb) SpO2 98% BMI 57.43 kg/m??? Physical Examination: GENERAL: alert and oriented [...] in anterior wall on stress imaging with reversibility on rest images. Consider follow-up for further evaluation 2. Pending exercise test results Investigations: Echocardiogram 05/08/2022: Global left ventricular systolic function is hyperdynamic; EF 65 to 70%. Mild concentric left ventricular hypertrophy. Normal diastolic function. Normal right ventricular size and systolic fu (more content not included)... [facility] 10-25-2023 Note Cardiovascular Labor atory Report FINAL IMPRESSIONS: Moderate, focal disease of the mid left anterior descending coronary artery Mild disease of the left circumflex coronary artery Normal global left ventricular systolic function by noninvasive imaging Significantly elevated right-sided heart pressures and severely elevated wedge pressure consistent with biventricular congestive failure Normal transpulmonary gradient along with elevated wedge consistent with postcapillary or pulmonary venous hypertension Normal cardiac output/cardiac index Severe systemic hypertension RECOMMENDATIONS: Aggressive cardiovascular risk factor modification Optimal medical therapy for coronary artery disease should include aspirin, moderate to high intensity statin therapy, a beta-sally and a RAAS inhibitor given her diabetes Will increase her Coreg to 25 mg p.o. twice daily Given significantly elevated filling pressures, will add Bumex 1 mg p.o. twice daily and a basic metabolic panel will be checked in a week Given coronary artery disease and diabetes, she should be on an SGLT2 inhibitor; will defer for now given her serum creatinine Follow-up with Dr. Torres in the next 1 to 2 months PROCEDURES: Ultrasound-guided access to the right internal jugular vein, right heart catheterization, ultrasound-guided access to the left radial artery, bilateral selective coronary angiography METHODS: After risks, benefits, and alternatives were explained, written informed consent was obtained. The patient was prepped and draped in usual sterile fashion over the right neck and left radial regions. Using 1% lidocaine solution, local infiltration anesthesia was achieved. Using a modified Seldinger technique, a micropuncture kit, and under ultrasound guidance, access to the right internal jugular vein was obtained. A 6 Cook Islander 11 cm sheath was inserted without difficulty. Right heart catheterization was performed using a Pacheco catheter via the venous sheath. Pressures were measured in the right atrium, right ventricle, pulmonary artery, and pulmonary capillary wedge positions. Oxygen saturations were obtained and cardiac output/cardiac index was calculated using the modified Sarah principle. The Pacheco catheter was removed. The jugular sheath was removed with application of manual pressure to achieve optimal hemostasis. Local infiltration anesthesia was achieved of the left wrist. Using a micropuncture kit, and under ultrasound-guided access of the left radial artery was obtained. A 6 Cook Islander glide sheath was inserted without difficulty. Bilateral selective coronary angiography was performed using JL4 and JR4 catheters. After reviewing the images, it was elected to conclude the procedure. All catheters were removed. The radial sheath was removed with application of a TR band per protocol to achieve optimal hemostasis. Overall the patient tolerated the procedure well. There were no overt complications. He was to be transferred to the holding area in stable condition. FINDINGS: Hemodynamics: RA 18 RV 58/12, 24 PA 58/29 [43] PCWP 30 TPG 13 AO 188/98 [129] Cardiac output /cardiac index 7.86, 3.37 AO sat /PA sat 97%/75% LEFT VENTRICULOGRAPHY: This was not performed; ejection fraction is 55 to 60% by echocardiography. CORONARY ARTERIES: Left main coronary artery: This arises from the left coronary cusp, it bifurcates into the left anterior descending and left circumflex coronary arteries it is free of significant stenosis. Left anterior descending coronary artery: There is calcific plaque proximally. A small first diagonal shows a 50% ostial stenosis. It is 2 mm in size on less in diameter. The vessel shows a tubular 40 to 50% stenosis in the midportion just after the giving rise to a large second diagonal branch. The midportion shows luminal irregularities. Left circumflex coronary artery: This shows a 30 to 40% ostial stenosis and is otherwise nonobstructive. There are luminal irregularities throughout the vessel and its large, branching, first obtuse marginal. Right coronary artery: This is a dominant vessel arising from the right coronary cusp giving rise to the posterior descending and posterolateral branches. It is angiographically nonobstructive. INDICATIONS: Exertional shortness of breath, chest pain, abnormal stress test [facility] 10-18-[address] Torres notified of Creatinine of 1.25 (0.55-1.02) on 10/17/23 with previous of 1.21 on 08/16/23. IV hydration of 0.9% NS at 1 ml/Kg/hr for 4 hrs prior to procedure per Dr Torres. [facility] 10-15-2023 Procedure note [facility] 10-09-2023 Note [facility] Cardiology Clinic Note Chief Complaint: Patient here [...] imaging with reversib (more content not included)... [facility] 09-13-2023 Note Cardiovascular Medic ine [facility] SUBJECTIVE HPI: Libra Noonan is a 72 y.o. female here for follow up regarding chest pain. . HPI PMHx: Uncontrolled DM type II, obesity, lower back pain, mild to moderate CAD per 02/2022 cath, HLD Patient here for follow up [facility] ED for chest pain in Jul 2023. States she was advised by ED to follow up with Cardiology. Last stress test was performed in Feb 2022, prior to heart cath with Dr. Torres. She was noted to have moderate coronary artery disease on Cath in 2021. She states that she is having chest pain, which is somewhat atypical in nature. It can occur both at rest and with exertion, and it is not always worsened with exertion. She endorses shortness of breath. No lower extremity edema, orthopnea, or PND. Family History Problem Relation Name Age of [...] not bruise/bleed easily. OBJECTIVE Visit Vitals BP 166/86 (BP Location: Left wrist, Patient Position: Sitting) Pulse 73 Ht 1.575 m (5' 2 ) Wt (!) 148 kg (326 lb) SpO2 97% BMI 59.63 kg/m??? Smoking Status Never BSA 2.54 m??? Current Outpatient Medications on File Prior to Visit Medication Sig Dispense Refill aspirin 81 mg capsule Take 81 mg by mouth in the morning. atorvastatin (Lipitor) 80 mg tablet Take 80 mg by mouth at bedtime. cholecalciferol (Vitamin D-3) 50 MCG (1999 UT) tablet Take 2,000 Units by mouth in the morning. ezetimibe (Zetia) 10 mg tablet Take 1 tablet (10 mg) by mouth in the morning. 90 tablet 3 fexofenadine (Nevaeh) 180 mg tablet Take 180 mg by mouth in the morning. As needed glipiZIDE (Glucotrol) 5 mg tablet Take 5 mg by mouth in the morning. insulin NPH and regular human (NovoLIN) 100 unit/mL (70-30) injection Inject under the skin before breakfast and before evening meal. albuterol 2.5 mg /3 mL (0.083 %) nebulizer solution INHALE 1 (ONE) vial via NEBULIZER FOUR TIMES DAILY NEEDED No current facility-administered medications [...] General: Skin is warm and dry. Neurological: General: No focal deficit present. Mental Status: She is alert and oriented to person, place, and time. Psychiatric: Mood and Affect: Mood is anxious. Thought Content: Thought content normal. Judgment: Judgment normal. Labs: 11/06/2022 Hgb 13.9, plt 228 Cr 1.29, BUN 30, K 4.9, Na 141, eGFR 41 Chol 142, HDL 74, trig 93, LDL 49 01/24/2022 CBC: unremarkable CMP: Cr. 1.14, BUN 20, K 4.2, GFR 47, K 4.2, ALT 25, AST 12 Lipids: Chol 235, HDL 64, trig 156, LDL 139 TSH: 3.673 HgbA1c: 8.2 CV Testing: ECHO (05/08/2022) Cardiac cath (03/23/2022) IMPRESSIONS: Mild to moderate [...] high intensity statin therapy, beta-sally plus or m (more content not included)... [facility] 07-15-2023 Evaluation note Encounter Date Diagnosis Assessment Notes Jun, Mixed hyperlipidemia (ICD-10 - E78.2) [facility] Other 12-13-2023 Evaluation note* Encounter Date Diagnosis [...] K52.9) declines GI referral at this time. [facility] Other 11-27-2023 Evaluation note* Encounter Date Diagnosis [...] Above note written by Arian Alanis MA, Job Boss. Edited and approved by Dr. Eric Villanueva MD. [employer] Other 11-15-2023 NoteCardiovascular Medicine [facility] SUBJECTIVE HPI: Libra Noonan is a 72 [...] warm and dry. Neurological: (more content not included)...[facility] 04-23-2023 Evaluation note* Encounter Date Diagnosis Assessment [...] note writ ten by Emi Gutierrez LPN, Job Boss. Edited and approved by Dr. Eric Villanueva MD. [employer] Other 09-13-2023 Evaluation note* Encounter Date Diagnosis Assessment Notes Treatment Notes Treatment Clinical Notes Feb, Type 2 diabetes mellitus with hyperglycemia (ICD-10 - E11.65) Goal: Maintain A1c below 7.0% by being compliant with prescribed medications, diet & exercise plan prior to f/u visit. Laboratory results were reviewed with patient. STATUS: New/continous Reviewed glucose of 249 - will increase dose of glipizide. [facility] Other 09-07-2023 Evaluation note* Encounter Date Diagnosis [...] note writ ten by Emi Gutierrez LPN, Job Boss. Edited and approved by Dr. Eric Villanueva MD. [facility] Other 08-22-[address] [facility] [facility]* Encounter Date Diagnosis Assessment [...] note writ ten by Arian Alanis MA, Job Boss. Edited and approved by Dr. Eric Villanueva MD. [employer] Other 07-10-2023 Evaluation note* Encounter Date Diagnosis Assessment Notes Treatment Notes Treatment Clinical Notes Dec, Dysuria (ICD-10 - R30.0) [facility] Other 06-14-2023 Evaluation note* Encounter Date Diagnosis [...] home. Discussed ER if symptoms worsen. Nov, care home (current) use of insulin (ICD-10 - Z79.4) [...] E78.2) chronic - pt requests a refill [facility] Other 06-06-2023 Evaluation note* Encounter Date Diagnosis Assessment Notes Treatment Notes Treatment Clinical Notes Nov, Dysuria (ICD-10 - R30.0) [facility] Other 04-18-2023 Evaluation note* Encounter Date Diagnosis Assessment Notes [...] syndrome of left wrist (ICD-10 - G56.02) [facility] Other 03-14-2023 Evaluation note* Encounter Date Diagnosis [...] Continue present meds for chronic problem. Aug, care home (current) use of insulin (ICD-10 - Z79.4) Aug, Essential (primary) hypertension (ICD-10 - I10) Pt will have labs before next visit. Continue present meds for chronic problem. [facility] Other 03-03-2023 Evaluation note* Encounter Date Diagnosis Assessment Notes Treatment Notes Treatment Clinical Notes Aug, Other spondylosis with radiculopathy, lumbar region (ICD-10 - M47.26) [facility] Other 02-21-2023 Evaluation note* Encounter Date Diagnosis [...] note writ ten by Emi Gutierrez LPN, Job Boss. Edited and approved by Dr. Eric Villanueva MD. [employer] Other 02-03-2023 NotePROCEDURE: XR HIP RT 2 [...] authenticated by: MIGUEL ANGEL CABALLERO Date: 2022-07-27 09:17[facility]01-24-2023 Evaluation note* Encounter Date Diagnosis Assessment Notes Treatment Notes Treatment Clinical Notes Jun, Other spondylosis with radiculopathy, lumbar region (ICD-10 - M47.26) [facility] Other 10-24-2022 Evaluation note* Encounter Date Diagnosis Assessment Notes Treatment Notes Treatment Clinical Notes Mar, Other spondylosis with radiculopathy, lumbar region (ICD-10 - M47.26) [facility] Other 09-19-2022 Evaluation note* Encounter Date Diagnosis [...] Above note written by Emi Gutierrez LPN, Job Boss. Edited and approved by Dr. Eric Villanueva [...] negative findings were considered in medical decision-making. [facility] Other 09-06-2022 Evaluation note* Encounter Date Diagnosis Assessment Notes Treatment Notes Treatment Clinical Notes Feb, Primary osteoarthritis of left knee (ICD-10 - M17.12) Feb, Acute pain of left knee (ICD-10 - M25.562) [facility] Other 08-16-2022 Evaluation note* Encounter Date Diagnosis [...] pain of left knee (ICD-10 - M25.562) [facility] Other 07-13-2022 Evaluation note* Encounter Date Diagnosis [...] the ER for worsening symptoms or concerns [facility] Other 05-16-2022 Evaluation note* Encounter Date Diagnosis [...] pain of left knee (ICD-10 - M25.562) [facility] Other 02-15-2022 Evaluation note* Encounter Date Diagnosis [...] total right knee replacement (ICD-10 - Z96.651) [facility] Other 09-29-2021 Evaluation note* Encounter Date Diagnosis [...] total right knee replacement (ICD-10 - Z96.651) [facility] [employer] Other Evaluation + Plan note No data available for this section [facility] evaluation noteNo InformationNortGeisinger [facility] [employer] Other Evaluation noteNo assessment information available [facility] Work Phone: Evaluation note* Diagnosis Onset Date Resolution Status Hair loss acute Hypercholesteremia acute Left-sided chest pain acute Mass of right axilla acute Mass of right chest wall acu te Type 2 diabetes mellitus with hyperglycemia acute Chronic pain acute Degenerative disc disease, lumbar acute Other spondylosis with radiculopathy, lumbar region acute [facility] Work Phone: Evaluation note* Diagnosis Onset Date Resolution Status Hair loss acute Hypercholesteremia acute Left-sided chest pain acute Mass of right axilla acute Mass of right chest wall acu te Type 2 diabetes mellitus with hyperglycemia acute Chronic pain acute Degenerative disc disease, lumbar acute Other spondylosis with radiculopathy, lumbar region acute Left knee pain acute Primary osteoarthritis of left knee acute [facility] Work Phone: Evaluation note* Diagnosis Onset Date Resolution Status Chronic pain acute Degenerative disc disease, lumbar acute Other spondylosis with radiculopathy, lumbar region acute Left knee pain acute Primary osteoarthritis of left knee acute Anemia acute CKD (chronic kidney disease) stage 3, GFR 30-59 ml/min acute [facility] Work Phone: History general Narrative - Reported* Type Description Date Medical History Diabetes Medical History Hypertension Medical History Hypercholesteremia Medical History chronic depression Medical History anxiety Surgical History tonsillectomy Surgical History appendectomy Surgical History cholecystectomy Surgical History knee replacement Surgical History hysterectomy Surgical History laparoscopy Surgical History carpal tunnel release Surgical History wisdom teeth extract Hospitalization History see above [facility] Other [facility] general Narrative - Reported* Type Description Date Medical History Diabetes Medical History Hypertension Medical History Hypercholesteremia Medical History chronic depression Medical History anxiety Surgical History tonsillectomy Surgical History appendectomy Surgical History cholecystectomy Surgical History knee replacement Surgical History hysterectomy Surgical History laparoscopy Surgical History carpal tunnel release Surgical History wisdom teeth extract Hospitalization History see above Hospitalization History [facility] 2021 [email or web address] [facility] [employer] Other [facility] general Narrative - Reported* Type Description Date Medical History Diabetes Medical History Hypertension Medical History Hypercholesteremia Medical History chronic depression Medical History anxiety Surgical History tonsillectomy Surgical History appendectomy Surgical History cholecystectomy Surgical History knee replacement Surgical History hysterectomy Surgical History laparoscopy Surgical History carpal tunnel release Surgical History wisdom teeth extract Surgical History Epiderral 07/2022 Hospitalization History see above Hospitalization History [facility] 2021 [email or web address] [facility] [employer] Other Hospital Discharge instructions No data available for this section [facility] Hospital Discharge instructionsAmbulatory Orders* Referral to Nephrology Time Frame: 12/04/23, Location: None Selected [facility] Work Phone: Progress note No data available for this section [facility] Reason for Referral Reason *Waiting for appt Uncontrolled type 2 diabetes - on /30; A1Cs will be scanned in from 2021. Diagnosis 1 Type 2 diabetes jayda itus with hyperglycemia (E11.65) Referral Organization [facility] Medical armen Referring Provider First Name Garrison Referring Provider Last Name Ray Referring Provider Specialty [facility] Referred Organization [facility] Endocrinology Referred Provider Akash Hendrix Referred Address [address] ,[place], [place],[address] Referred Provider Specialty Nurse Eber chavarria Referral Priority Routine General Notes Aylin Muñoz 03:32:36 PM >received today, sent p2p Reason *FU 02/21 Schedule with Ellen Villanueva for possible lumbar injections. Diagnosis 1 Primary osteoarthrit is of left knee (M17.12) Diagnosis 2 Spondylolisthesis of lumbar region (M43.16) Referral Organization [facility] Ortho pedics Referring Provider First Name Zena Referring Provider Last Name Ricky Referring Provider Specialty Nurse Pract itioner Referred Organization [facility] Pain Managemen milena Wood Referred Provider Eric Villanueva Referred Address [address],[place],[address] Referred Provider Specialty Pain Medicin e Referral [...] RECHECK BACK PAIN LUMBAR PAIN LUMBAR PAIN OP SP LT KNEE PAIN REQUESTED INJECTION M17.12 - Unilateral primary osteoarthritis, left k Reason for Visit Hair loss Hypercholesteremia Left-sided chest pain Mass of right axilla Mass of right chest wall Type 2 diabetes mellitus with hyperglycemia Chronic pain Degenerative disc disease, lumbar Other spondylosis with radiculopathy, lumbar region Left knee pain Primary osteoarthritis of left knee Chief Complaint RECHECK BACK PAIN LUMBAR PAIN LUMBAR PAIN OP SP LT KNEE PAIN REQUESTED INJECTION M17.12 - Unilateral primary osteoarthritis, left k 3 MONTH FOLLOW UP Reason for Visit Chronic pain Degenerative disc disease, lumbar Other spondylosis with radiculopathy, lumbar region Left knee pain Primary osteoarthritis of left knee Anemia CKD (chronic kidney disease) stage 3, GFR 30-59 ml/min Family History No Family History Records Found [...] Other Provider Active Start: October 15, 2023 Team Status: Active Member Role Status Dates Garrison Bell MD Primary Care Provide r, Attending Provider Active Start: October 17, 2023 Team Status: Inactive Member Role Status Dates Garrison Bell MD Primary Care Provider Active Start: October 17, 2023 End: October 17, 2023 ANGELO Miles Attending Provider Active Start: October 17, 2023 End: October 17, 2023 Team Status: Active Member Role Status Dates Garrison Bell MD Primary Care Provider Active Start: November 04, 2023 Ehab Gege Torres Attending Provider Active Start: November 04, 2023 Team Status: Active Member Role Status Dates Garrison Bell MD Primary Care Provider Active Start: November 29, 2023 Ehab A Melissa Attending Provider Active Start: November 29, 2023 Team Status: Inactive Member Role Status Dates Garrison Bell MD Primary Care Provide r, Attending Provider Active Start: December 04, 2023 End: December 04, 2023 Team Status: Active Member Role Status [...] Garrison Bell MD Primary Care Provider Active ANGELO Miles Attending Provider Active Team Status: Active Member Role Status Dates Garrison Bell MD Primary Care Provider Active Start: October 17, 2023 Zena L Clarence , CATHEAD OPERATOR-C Attending Provider Active Start: October 17, 2023 INFORMATION SOURCE (unrecogn ized section and content) DATE CREATED AUTHOR 08/24/2022 [facility] DATE CREATED AUTHOR AUTHOR'S ORGANIZ ATION 11/08/2022 [facility] DATE CREATED AUTHOR AUTHOR'S ORGANIZ ATION 10/19/2023 [facility] DATE CREATED AUTHOR AUTHOR'S ORGANIZ ATION 2023 [facility] Goals (unrecognized section and content) Goals may [...] BE BASED ON THE PRIMARY CLINICAL RECORDS. [employer] provides no warranty or guarantee of the accuracy or completeness of information in this document.
[2023-12-30 09:40] LABS: Anion Gap 11.6; Calcium 8.7 mg/dL (8.5-10.1); Carbon Dioxide 26.9 mmol/L (21.0-32.0); Chloride 107 mmol/L (98-107); Estimated GFR (African America 45 (>=60); Estimated GFR (Non-African Ame 37 (>=60); Glucose 193 mg/dL (74-106); Potassium 4.5 mmol/L (3.5-5.1); Sodium 141 mmol/L (136-145)
== END 2023-12-30 08:54 | disposition home or self-care (01) ==
LOC: LAB 08:55
PROVIDERS: PCP Family Medicine; Visit Provider Internal Medicine Interventional Cardiology
DX: I11.0 Hypertensive heart disease with heart failure (principal)
CPT/HCPCS: 36415; 80048

== ENCOUNTER 2024-01-09 12:52 | Outpatient (OUT) | payer MEDICARE, OTHER, SELFPAY ==
[2024-01-09 13:28] LABS: BUN Creatinine Ratio 22.7; Calcium 8.9 mg/dL (8.5-10.1); Carbon Dioxide 28.8 mmol/L (21.0-32.0); Chloride 107 mmol/L (98-107); Estimated GFR (African America 50 (>=60); Estimated GFR (Non-African Ame 41 (>=60); Glucose 96 mg/dL (74-106); Potassium 4.8 mmol/L (3.5-5.1); Sodium 143 mmol/L (136-145)
== END 2024-01-09 12:53 | disposition home or self-care (01) ==
LOC: LAB 12:54
PROVIDERS: PCP Family Medicine; Visit Provider Internal Medicine Interventional Cardiology
DX: I11.0 Hypertensive heart disease with heart failure (principal)
CPT/HCPCS: 36415; 80048

== ENCOUNTER 2024-03-16 11:47 | Outpatient (OUT) | payer MEDICARE, OTHER, SELFPAY ==
--- NOTE | 2024-03-16 | XR_ITS ---
[address] [address] Patient Name: MARIAMA REYES MRN: [id number] date: 1950 Sex: F Assigned Patient Location: LAB Current Patient Location: Accession/Order Number: [id number] Exam Date: 03/16/2024 12:15 Report Date: 03/17/2024 12:45 At the request of: JAX ROSALES Procedure: XR chest 2V PROCEDURE: XR chest 2V DATE: 03/16/2024 11:15 AM CDT COMPARISONS: 08/16/2023 CLINICAL INDICATION: 73 years Female R06.02 FINDINGS: The cardiomediastinal silhouette and pulmonary vasculature are within normal limits. The lungs are clear. There is no evidence of pleural effusion or pneumothorax. XR/XR chest 2V IMPRESSION: Chest radiograph is within normal limits. Electronically authenticated by: ALEXANDER STOREY Date: 03/17/2024 12:45
[2024-03-16 12:41] LABS: Anion Gap 10.7; BUN Creatinine Ratio 30.1; Calcium 9.2 mg/dL (8.5-10.1); Carbon Dioxide 27.5 mmol/L (21.0-32.0); Chloride 102 mmol/L (98-107); Estimated GFR (African America 52 (>=60); Estimated GFR (Non-African Ame 43 (>=60); Glucose 240 mg/dL (74-106); Potassium 4.2 mmol/L (3.5-5.1); Sodium 136 mmol/L (136-145)
== END 2024-03-16 11:48 | disposition home or self-care (01) ==
LOC: LAB 11:50
PROVIDERS: PCP Family Medicine; Visit Provider Internal Medicine Interventional Cardiology
DX: R06.02 Shortness of breath (principal)
CPT/HCPCS: 36415; 71046; 80048; 83880

== ENCOUNTER 2024-03-30 08:57 | Outpatient (OUT) | payer MEDICARE, OTHER, SELFPAY ==
--- NOTE | 2024-03-30 09:02 | US_ITS ---
The [address] [address] Patient Name: MARIAMA REYES MRN: [id number] date: 1950 Sex: F Assigned Patient Location: Current Patient Location: US Accession/Order Number: [id number] Exam Date: 03/30/2024 09:05 Report Date: 03/30/2024 10:20 At the request of: ANNY GUTIÉRREZ Procedure: US renal BI EXAMINATION: US renal BI HISTORY: Stage 3 Chronic Kidney Disease COMPARISON: No relevant comparison available. TECHNIQUE: Ultrasound examination was performed of the bladder. FINDINGS: Right Kidney: Normal in size and contour. The cortex measures 1.0 cm. No solid cortical mass, hydronephrosis or obstructing nephrolithiasis Height: 3.85 cm Length: 9.09 cm Width: 4.03 cm Left Kidney: Normal in size and contour. The cortex measures 1.2 cm. 4 mm echogenic focus upper pole, nonobstructing nephrolith. 1.3 cm area of anechoic echogenicity lower pole, simple cyst Height: 5.30 cm Length: 9.38 cm Width: 4.89 cm Urinary bladder measures 4.6 x 5.7 x 3.6 cm a volume of 67 mL. US/US renal BI IMPRESSION: Mild bilateral renal cortical atrophy Electronically authenticated by: ANN MARIE SAL Date: 03/30/2024 10:20
== END 2024-03-30 08:58 | disposition home or self-care (01) ==
LOC: US 08:57
PROVIDERS: PCP Family Medicine; Visit Provider Internal Medicine
DX: N25.81 Secondary hyperparathyroidism of renal origin (principal); N18.9 Chronic kidney disease, unspecified; D63.1 Anemia in chronic kidney disease; I12.9 Hypertensive chronic kidney disease with stage 1 through stage 4 chronic kidney disease, or unspecified chronic kidney disease; E11.22 Type 2 diabetes mellitus with diabetic chronic kidney disease; N18.30 Chronic kidney disease, stage 3 unspecified
CPT/HCPCS: 76775

== ENCOUNTER 2024-09-04 20:02 | Observation (INO) | payer MEDICARE, OTHER, SELFPAY ==
[2024-09-04] VITALS (23 sets, daily range): BP systolic 137–177; BP diastolic 72–97; PULSE 68–83; TEMP 36.8; O2SAT 94–95; BMI 54.7
--- OUTSIDE RECORDS SUMMARY | 2024-09-04 20:12 | XMS_ITS | CCD ---
Author Organization [facility] Care Team Providers Care Orthopedic Surgeon Name Role Phone Zena García Unavailable Jazz Nance Unavailable Eric Villanueva Unavailable MD Garrison Bell Primary Care Provider MD Eric Villanueva Attending Provider [phone] GARRISON BELL Primary Care Physician [phone] ZENA POTTER Attending Unavailable Garrison Bell Unavailable Alka Hankins Unavailable MD Garrison Bell Primary Care Provider [phone] MD Alka Hankins Attending Provider MD Eric Villanueva Attending Provider ANGELO García Attending Provider DR GARRISON BELL Admitting Unavailable RAY, DR GARRISON Jefferson Primary Care Unavailable KEATCHIE, DR ANN MARIE Gibbons Consulting Unavailable RAY, DR GARRISON Jefferson Attending Unavailable RAY, DR GARRISON Jefferson Consulting Unavailable RAY, DR GARRISON Jefferson Admitting Unavailable BELL, DR [...] ERYN, DR RONALD De Guzman Admitting Unavailable DR LUCRECIA ALANIS Consulting Unavailable ERYN, DR RONALD De Guzman [...] Provider MD Garrison Bell Primary Care Provider [phone] MD Eric Villanueva Attending Provider MD Garrison Bell Primary Care Provider MD Eric Villanueva Attending Provider ANGELO García Attending Provider [phone] MD Garrison Bell Primary Care Provider ELTAHAWY, EHAB Attending Unavailable ELTAHAWY, EHAB Referring Unavailable ELTAHAWY, EHAB Attending Unavailable ELTAHAWY, EHAB Admitting Unavailable ELTAHAWY, EHAB Attending Unavailable ELTAHAWY, EHAB Attending Unavailable RIMA JAIN Attending Unavailable DANIELA HENDRICKS Attending Unavailable RENETTA NGUYEN Attending Unavailable MD Garrison Bell Primary Care Provider MD Eric Villanueva Attending Provider Garrison Bell Primary Care Unavailable Eric Villanueva Attending Unavailable Eric Villanueva Admitting Unavailable Eric Villanueva Admitting Unavailable Garrison Bell Primary Care Unavailable Eric Villanueva Attending Unavailable Garrison Bell Primary Care Unavailable Eric Villanueva Admitting Unavailable Eric Villanueva Attending Unavailable Garrison Bell Primary Care Unavailable Zena García Admitting Unavailable Zena García Attending Unavailable Garrison Bell Primary Care Unavailable Eric Villanueva Admitting Unavailable Eric Villanueva Attending Unavailable Garrison Bell Primary Care Unavailable Eric Villanueva Attending Unavailable Eric Villanueva Admitting Unavailable Garrison Bell MD Primary Care Provider Allergies Allergy Classification Reported Allergen(s) Allergy Type Date of Onset Reaction(s) Facility Acetaminophen (1 source) Acetaminophen Drug Allergy 12-04-19 24 dizziness, and stomach issues [facility] Angiotensin Converting Enzyme (HIRAM) Inhibitors (1 source) Lisinopril Drug Allergy 12-04-19 24 [facility] metFORMIN (1 source) metFORMIN Drug Allergy 12-04-19 24 [facility] Nitrofurantoin (1 source) Nitrofurantoin Drug Allergy 12-04-19 [facility] Opioid Agonists (2 sources) oxyCODONE Drug Allergy 12-04-19 24 constipation, dizziness, and stomach issues, Vomiting [facility] (20 sources) Acetaminophen / oxyCODONE; Translations: [acetaminophen-ox ycodone] Drug Allergy 01-21-20 19 Unknown (qualifier value) [facility] (19 sources) oxyCODONE; Translations: [oxycodone] Drug Allergy 03-20-20 22 Vomiting, constipation, constipation, dizziness, and stomach issues [facility] Comment on above: Onset Date: 01/21/20 19 (20 sources) Propoxyphene; Translations: [propoxyphene] Drug Allergy 03-20-20 22 GI intolerance, Unknown [facility] (2 sources) acetaminophen / propoxyphene; Translations: [acetaminophen-pr opoxyphene] Drug Allergy Unknown (qualifier value) [facility] (2 sources) Acetaminophen / oxyCODONE; Translations: [Percocet] Drug Allergy 07-28-19 21 [facility] (20 sources) Lisinopril Drug Allergy 01-20-20 19 Unknown, [facility] Comment on above: Onset Date: 01/20/20 19 (20 sources) metFORMIN Drug Allergy 01-20-20 19 [facility] Comment on above: Onset Date: 01/20/20 19 (11 sources) NITROFURANTOIN, MACROCRYSTALS / Nitrofurantoin, Monohydrate Drug Allergy Unknown [facility] Other (3 sources) Allergies Reconciled Propensity to adverse reactions Unknown [facility] Other (3 sources) patient allergy list reviewed by nurse or physicia Propensity to adverse reactions 01-21-20 Comment:Done [facility] Other (11 sources) Darvocet A500 *ANALGESICS - OPIOID* Propensity to adverse reactions 01-21-20 19 Unknown [facility] Other (15 sources) Acetaminophen Drug Allergy 10-10-19 dizziness, and stomach issues [facility] Comment on above: Onset Date: 01/21/20 19 (15 sources) Nitrofurantoin Drug Allergy 10-10-19 24 [facility] (14 sources) Darvocet A500 *ANALGESICS - OP Allergy to substance 08-15-19 [facility] Comment on above: Free Text Allergy: D arvocet A500 *ANALGESICS - OPIOID*; Onset Date: 01/20/2019 (3 sources) Acetaminophen / oxyCODONE; Translations: [OXYCODONE-ACETAM INOPHEN] Drug Allergy 09-07-19 GI intolerance, Rash, Unknown [facility] (1 source) ADHESIVE TAPE-SILICONES; Translations: [ADHESIVE TAPE-SILICONES] Propensity to adverse reactions to drug (disorder) 08-04-19 03 [facility] (1 source) PROPOXYPHENE N-ACETAMINOPHEN; Translations: [PROPOXYPHENE N-ACETAMINOPHEN] Propensity to adverse reactions to drug (disorder) 09-07-19 21 [facility] (2 sources) Lisinopril Allergy to substance 03-10-20 [facility] (2 sources) Wound Dressing Adhesive Drug Intolerance 08-04-19 03 [facility] Medications Current Medications Medication Drug Class(es) Dates Sig (Normalized) Sig (Original) [id number] 200 actuat albuterol 0.09 mg/actuat metered dose inhaler (1 source) beta2-Adrenergic Agonist Start: 07-08-2024 take 1 puff(s) by inhalation every four to six hours as needed Albuterol Sulfate 90 mcg/actuation HFA aerosol inhaler Active 2 PUFF INHALATION EVERY 4-6 HOURS as needed for bronchospasm 8.5 July 08, 2024 12:00am Nevaeh Allergy 180 MG (11 sources) take [...] 2023 11:00pm take 1 tablet by mouth in the mo rning aspirin 81 MG EC tablet Take 81 mg by mouth in the morning. Active take 1 tablet by mouth once ainsley y Aspir-Low 81 MG 1 tablet Orally Once a day Active atorvastatin 80 mg oral tablet (20 sources) HMG-CoA Reductase Inhibitor Start: 12-13-2020 End: 07-08-2024 take 1 tablet by mouth once daily Atorvastatin 80 mg tablet Active 80 MG PO Daily 90 July 08, 2024 11:55am azithromycin 250 mg oral tablet (4 sources) Macrolide Antimicrobial Start: 06-07-2023 Azithromycin 250 MG as directed Orally 2 tabs po today, then 1 tab daily x 4 more days for 5 May, Active Start: 01-03-2022 Azithromycin 2 50 MG 2 tablet on the first day, then 1 tablet daily for 4 days Orally Once a day for 5 day(s) Dec, Active Blood-Glucose Meter (True Me trix Glucose Meter) [facility] (9 sources) Start: 12-11-2023 Blood-Glucose Meter (True Metrix Glucose Meter) [facility] Active 0 .Route December 10, 2023 11:00pm to test blood sugar daily Start: 12-11-2023 Blood-Glucose Meter (True Metrix Glucose Meter) [facility] Active 0 .Route December 11, 2023 12:00am to test blood sugar daily carvedilol 25 mg oral tablet (20 sources) alpha-Adrenergic Sally, beta-Adrenergic Sally Start: 09-30-2024 Carvedilol 25 mg tablet Active 12.5 MG PO Twice daily March 22, 2024 11:00pm Start: 03-23-2024 take 12.5 mg by mout h twice daily Carvedilol Active 12.5 MG PO Twice daily March 23, 2024 12:00am Start: 08-07-2022 End: 03-23-2024 take 2 tablets by mouth twice daily Carvedilol 3.125 mg tablet Discontinued 6.25 MG PO Twice daily August 07, 2022 12:00am March 23, 2024 9:27am Start: 08-07-2022 End: 03-23-2024 take 6.25 mg by mouth twice daily Carvedilol Discontinued 6.25 MG PO Twice daily August 07, 2022 1:00am March 23, 2024 10:27am take 1 tablet by michael th in the morning carvedilol (Coreg) 25 MG tablet Take 25 mg by mouth in the morning and 25 mg in the evening. Take with meals. Active take 1 tablet by michael th every twelve hours Carvedilol 6.25 MG 1 tablet with food Orally Twice a day Active cholecalciferol 0.125 mg oral tablet (19 sources) Vitamin D Start: 02-12-2023 Cholecalcifero l (Vitamin D3) (Vitamin D3) 125 mcg (5,000 unit) Tablet Active 5000 UNIT PO .2xweek February 11, 2023 11:00pm Start: 02-12-2023 take 1 tablet by michael th once daily Cholecalciferol (Vitamin D3) (Vitamin D3) 125 mcg (5,000 unit) Tablet Active 5000 UNIT PO Daily February 12, 2023 12:00am take 1 tablet by michael th in the morning cholecalciferol (Vitamin D-3) 50 MCG (2000 UT) tablet Take 2,000 Units by mouth in the morning. Active ciprofloxacin 250 mg oral tablet (6 sources) Quinolone Antimicrobial take 1 tablet by mouth every twelve hours Ciprofloxacin HCl 250 MG 1 tablet Orally every 12 hrs for 7 days Active estradiol 0.1 mg/g vaginal cream (1 source) Start: 08-16-19 estradiol 0.1 mg/g vaginal cream 1 gm, Vaginal, MonThu, # 42.5 gm, Refills(s) 3, Pharmacy: [facility] 536, 160, cm, 08/16/21 15:10:00 EST, [...] 1:00am fexofenadine hydrochloride 180 mg oral tablet (20 sources) Histamine-1 Receptor Antagonist Start: 03-23-2024 take 1 tablet by mouth once daily Fexofenadine (Nevaeh Allergy) 180 mg tablet Active 180 MG PO Daily March 22, 2024 11:00pm Start: 02-12-2023 End: 01-15-2024 take 1 tablet by mouth once daily Fexofenadine (Nevaeh) 180 mg Tablet Discontinued 180 MG PO Daily February 11, 2023 11:00pm January 15, 2024 9:48am furosemide 20 mg oral tablet (20 sources) Loop Diuretic Start: 03-23-2024 Furosemide 20 mg tablet Active 10 MG PO Every 48 hours March 23, 2024 9:30am Start: 03-23-2024 Furosemide Act leann 10 MG PO Every 48 hours March 23, 2024 10:30am Start: 01-15-2024 End: 03-23-2024 take 5 mg by mouth once daily as needed Furosemide 20 mg tablet Discontinued 5 MG PO daily as needed January 15, 2024 9:47am March 23, 2024 9:31am every other day Start: 01-15-2024 End: 03-23-2024 take 5 mg by mouth once daily Furosemide Discontinued 5 MG PO daily January 15, 2024 10:47am March 23, 2024 10:31am every other day Start: 12-04-2023 End: 01-15-2024 take 10 mg by mouth once daily Furosemide 20 mg tablet Discontinued 10 MG PO daily December 03, 2023 11:00pm January 15, 2024 9:48am Start: 12-04-2023 End: 01-15-2024 take 10 mg by mouth once daily Furosemide Discontinued 10 MG PO daily December 04, 2023 12:00am January 15, 2024 10:48am Start: 11-25-2023 take 1 tablet by michael th once daily furosemide (Lasix) 20 MG tablet Take 20 mg by mouth Daily 11/25/2023 Active gabapentin 300 mg oral capsule (4 sources) Anti-epileptic Agent Start: 03-12-2022 take 1 capsule by mouth every twelve hours Gabapentin 300 MG 1 capsule Orally Twice a day for 30 day(s) Feb, Active glipiZIDE 10 mg oral tablet (20 sources) Sulfonylurea Start: 07-08-2024 take 1 tablet by mouth once daily Glipizide 10 mg tablet Active 10 MG PO Daily July 08, 2024 11:55am Start: 01-15-2024 End: 07-08-2024 take 5 mg by mouth once daily Glipizide 10 mg tablet Discontinued 5 MG PO Daily January 15, 2024 9:47am July 08, 2024 11:55am Start: 01-15-2024 take 5 mg by mouth once daily Glipizide Active 5 MG PO Daily January 15, 2024 10:47am Start: 08-15-2023 End: 01-15-2024 take 1 tablet by mouth once daily Glipizide 10 mg tablet Discontinued 10 MG PO Daily September 04, 2023 11:40am January 15, 2024 9:48am Start: 08-07-2022 End: 09-04-2023 take 1 tablet by mouth once daily Glipizide 5 mg tablet extended release 24hr Discontinued 5 MG PO Daily August 07, 2022 12:00am September 04, 2023 11:40am take 1 tablet by michael th 30 minutes before breakfast glipiZIDE 10 MG TAKE 1 TABLET BY MOUTH 30 MINUTES BEFORE BREAKFAST for 90 days Active take 1 tablet by michael th once daily 30 minutes before breakfast glipiZIDE 5 MG 1 tablet 30 minutes before breakfast Orally Once a day for 90 days Active Insulin Nph And Regular Human (20 sources) Insulin Start: 03-23-2024 Insulin Nph An d Regular Human (Novolin 70-30 Flexpen U-100) 100 unit/mL (70-30) insulin pen Active 30 UNIT SUBCUT Daily March 23, 2024 9:27am Start: 03-23-2024 Insulin Nph An d Regular Human (Novolin 70-30 Flexpen U-100) 100 unit/mL (70-30) insulin pen Active 30 UNIT SUBCUT Daily March 23, 2024 10:27am Start: 02-12-2023 End: 03-23-2024 Insulin Nph And Regular Antonette n (Novolin 70-30 Flexpen U-100) 100 unit/mL (70-30) Insulin Pen Discontinued 25 UNIT SUBCUT Daily February 11, 2023 11:00pm March 23, 2024 9:31am Start: 02-12-2023 End: 03-23-2024 Insulin Nph And Regular Antonette n (Novolin 70-30 Flexpen U-100) 100 unit/mL (70-30) Insulin Pen Discontinued 25 UNIT SUBCUT Daily February 12, 2023 12:00am March 23, 2024 10:31am Start: 02-12-2023 Insulin Nph An d Regular Human (Novolin 70-30 Flexpen U-100) 100 unit/mL (70-30) Insulin Pen Active 25 UNIT SUBCUT Daily February 11, 2023 11:00pm Start: 02-12-2023 Insulin Nph An d Regular Human (Novolin 70-30 Flexpen U-100) 100 unit/mL (70-30) Insulin Pen Active 25 UNIT SUBCUT Daily February 12, 2023 12:00am insulin NPH-insu troi regular (NovoLIN) (70-30) 100 UNIT/ML injection Inject under the skin 2 (two) times a day before meals Active NovoLIN 70/30 (7 0-30) 100 UNIT/ML 25u Subcutaneous daily Active NovoLIN 70/30 (7 0-30) 100 UNIT/ML as directed Subcutaneous Active Novalin (1 source) Start: 08-16-2021 Novalin Novali n Start Date: 08/16/21 Status: Ordered ondansetron 4 mg disintegrating oral tablet (20 sources) Serotonin-3 Receptor Antagonist Start: 12-05-2022 take 1 tablet by mouth three times daily as needed Ondansetron 4 MG 1 tablet on the tongue and allow to dissolve Orally tid prn for 5 Nov, Active Start: 07-23-2021 End: 08-07-2022 take 1 tablet by mouth four times daily as needed for nausea and vomiting Ondansetron 4 mg tablet,disintegrating Discontinued 4 MG PO Four times daily as needed for nausea and vomiting July 23, 2021 12:00am August 07, 2022 7:18am Start: 12-31-2020 End: 07-23-2021 take 1 tablet by mouth every eight hours as needed for nausea and vomiting Ondansetron 4 mg tablet,disintegrating Discontinued 4 MG PO Q8H as needed for nausea and vomiting 14 December 30, 2020 11:00pm July 23, 2021 1:44pm Start: 12-13-2020 End: 12-30-2020 take 1 tablet by mouth three times daily Ondansetron Hcl (Zofran) 4 mg tablet Discontinued 4 MG PO Three times daily 9 December 12, 2020 11:00pm December 30, 2020 [...] / HYDROcodone bitartrate 5 mg oral tablet (19 sources) Opioid Agonist Start: 07-23-2021 End: 08-07-2022 take 1 tablet by mouth every six hours as needed for pain Hydrocodone-Acetam inophen 5-325 mg tablet Discontinued 1 TAB PO Q6H as needed for pain 10 July 23, 2021 August 07, 2022 7:18am cefdinir 300 mg oral capsule (19 sources) Cephalosporin Antibacterial Start: 12-31-2020 End: 07-23-2021 take 1 capsule by mouth twice daily Cefdinir 300 mg capsule Discontinued 300 MG PO Twice daily 12 04December 30, 2020 11:00pm July 23, 2021 1:44pm cephalexin 500 mg oral capsule (20 sources) Cephalosporin Antibacterial Start: 07-23-2021 End: 08-07-2022 take 1 capsule by mouth every eight hours Cephalexin 500 mg capsule Discontinued 500 MG PO Q8H 30 July 23, 2021 12:00am August 07, 2022 7:21am Start: 12-13-2020 End: 12-30-2020 take 1 capsule by mouth twice daily Cephalexin 500 mg capsule Discontinued 500 MG PO Twice daily 20 December 12, 2020 11:00pm December 30, 2020 4:28am cyclobenzaprine hydrochloride 5 mg oral tablet (20 sources) Muscle Relaxant Start: 08-15-2023 End: 12-04-2023 take 1 tablet by mouth once daily Cyclobenzaprine 5 mg tablet Discontinued 5 MG PO Daily August 15, 2023 12:00am December 04, 2023 10:46am Start: 08-14-2022 take 1 tablet by michael th every twenty-four hours Cyclobenzaprine HCl 5 MG 1 tablet as needed Orally Once a day for 30 days Jul, Not-Taking dapagliflozin 5 mg oral tablet (20 sources) Sodium-Glucose Cotransporter 2 Inhibitor Start: 12-13-2020 End: 12-31-2020 take 1 tablet by mouth once daily Dapagliflozin Propanediol (Farxiga) 5 mg tablet Discontinued 5 MG PO Daily December 12, 2020 11:00pm December 31, 2020 1:36pm Durolane (20 sources) Start: 02-27-2022 Durolane Feb, 60 mg Insulin Nph And Regular Human (16 sources) Start: 12-30-2020 End: 02-12-2023 inject 25 [...] UNIT SUBCUT Daily December 29, 2020 11:00pm Insulin Nph And Regular Human 100 unit/mL (70-30) Syringe (3 sources) Start: 12-30-2020 End: 02-12-2023 Insulin Nph And Regular Human 100 unit/mL (70-30) Syringe Discontinued 25 UNIT SUBCUT Daily December 29, 2020 11:00pm February 12, 2023 8:58am lisinopril 5 mg oral tablet (20 sources) Angiotensin Converting Enzyme Inhibitor Start: 12-04-2023 End: 01-15-2024 take 5 tablets by mouth twice daily Lisinopril 5 mg tablet Discontinued 25 MG PO Twice daily December 04, 2023 10:48am January 15, 2024 9:48am Start: 12-04-2023 End: 01-15-2024 take 25 mg by mouth twice daily Lisinopril Discontinue d 25 MG PO Twice daily December 04, 2023 11:48am January 15, 2024 10:48am Start: 10-15-2023 End: 01-15-2024 take 1 tablet by mouth once daily Lisinopril 5 mg tablet Discontinued 5 MG PO Daily December 03, 2023 11:00pm January 15, 2024 9:48am nitrofurantoin, macrocrystals 25 mg / nitrofurantoin, monohydrate 75 mg oral capsule (19 sources) Nitrofuran Antibacterial Start: 12-13-2020 End: 12-13-2020 take 1 capsule by mouth twice daily as needed for pain Nitrofurantoin Monohyd/M-Cryst 100 mg capsule Discontinued 100 MG PO Twice daily as needed for Pain December 12, 2020 11:00pm December 13, 2020 8:52pm pregabalin 25 mg oral capsule (20 sources) Start: 10-10-2023 End: 10-15-2023 take 1 capsule by mouth once daily Pregabalin (Lyrica) 25 mg capsule Discontinued 25 MG PO Daily October 09, 2023 11:00pm October 15, 2023 8:41am Start: 10-23-2022 End: 02-12-2023 take 1 capsule by mouth once daily Pregabalin 75 mg capsule Discontinued 75 MG PO Daily October 22, 2022 11:00pm February 12, 2023 8:57am Start: 08-28-2022 take 1 capsule by mo [facility] every twelve hours Lyrica 75 MG 1 capsule Orally Twice a day for 90 days Aug, Active promethazine hydrochloride 12.5 mg oral tablet (19 sources) Phenothiazine Start: 12-13-2020 End: 12-30-2020 take 1 tablet by mouth three times daily as needed for nausea Promethazine 12.5 mg tablet Discontinued 12.5 MG PO Three times daily as needed for Nausea December 12, 2020 11:00pm December 30, 2020 4:28am sertraline 50 mg oral tablet (4 sources) Serotonin Reuptake Inhibitor Start: 04-06-2024 End: 07-08-2024 take 1 tablet by mouth once daily Sertraline 50 mg tablet Discontinued 50 MG PO Daily April 05, 2024 11:00pm July 08, 2024 11:48am traMADol hydrochloride 50 mg oral tablet (20 [...] [Unspecified asthma, uncomplicated] Chronic Chronic kidney disease (20 sources) Chronic kidney disease stage 3; Translations: [...] disease (4 sources) Atherosclerotic heart disease of [place] coronary artery without angina pectoris; Translations: [Unstable angina] Onset: 2 Chronic Deficiency and other anemia (10 sources) Anemia; Translations: [Anemia, unspecified] 12-04-2023 Episodic Deficiency and other anemia (3 sources) Anemia, unspecified; Translations: [Anemia, unspecified] 12-04-2023 Episodic Diabetes mellitus with complications (20 sources) Type 2 diabetes mellitus; Translations: [Type 2 diabetes mellitus with hyperglycemia] Onset: 3 Chronic Diabetes mellitus without complication (4 sources) Diabetes mellitus; Translations: [Type 2 diabetes mellitus without complication] Onset: 9 08-16-2021 Chronic Diabetes mellitus without complication (19 sources) Hyperglycemia; Translations: [Hyperglycemia, unspecified] 12-13-2020 Episodic Comment on above: Problem List clean-u p per request of Phys. EHR Cmte Disorders of lipid metabolism (20 sources) Hypercholesterolemia; Translations: [Mixed hyperlipidemia] Onset: 9 08-16-2021 Chronic Essential hypertension (20 sources) Essential hypertension; Translations: [Essential (primary) hypertension] Onset: 3 Chronic Genitourinary symptoms and ill-defined conditions (14 sources) Increased frequency of urination; Translations: [Urinary symptoms ] 08-16-2021 Episodic Glaucoma (1 source) Glaucoma 08-16-2021 Chronic Hypertension with complications and secondary hypertension (15 sources) Hypertensive urgency; Translations: [Hypertensive urgency ] [...] Translations: [Atrophic vaginitis] 08-16-2021 Chronic Mood disorders (7 sources) Major depression, single episode; Translations: [Major depressive disorder, single episode, unspecified] 04-17-2024 Chronic Nausea and vomiting (4 sources) Nausea with vomiting, unspecified; Translations: [Nausea] Episodic Neoplasms of unspecified nature or uncertain behavior (2 sources) Neoplastic disease; Translations: [Neoplasm of unspecified behavior of bone, soft tissue, and skin] 03-17-2024 Episodic Noninfectious gastroenteritis (1 source) Noninfective gastroenteritis and colitis, unspecified Episodic Nonspecific chest pain (20 sources) Chest pain, unspecified; Translations: [Chest pain] Onset: 2 Episodic Osteoarthritis (20 sources) Osteoarthritis of left knee joint; Translations: [Unilateral primary osteoarthritis, left knee] Onset: 1 Resolved: 2 Chronic Other acquired deformities (20 sources) Lumbar spondylolisthesis; Translations: [Spondylolisthesis, lumbar region] Episodic Other aftercare (20 sources) Long-term current use of insulin; Translations: [long term care phlebotomist (current) use of insulin] Episodic Other aftercare (2 sources) long term care phlebotomist (current) use of insulin Episodic Other circulatory [...] sources) Trochanteric bursitis, unspecified hip Episodic Other connective tissue disease (2 sources) Hand pain; Translations: [Pain in right hand] 07-07-2024 Episodic Other connective tissue disease (2 sources) Triggering of digit; Translations: [Trigger finger, right index finger] 07-07-2024 Episodic Other connective tissue disease (2 sources) Pain in right hand; Translations: [Pain in limb] 07-07-2024 Episodic Other connective tissue disease (2 sources) Trigger finger, right index finger; Translations: [Trigger finger (acquired)] 07-07-2024 Episodic Other diseases of kidney and ureters (6 sources) Secondary hyperparathyroidism; Translations: [Secondary hyperparathyroidism of renal origin] 03-23-2024 Chronic Other diseases of kidney and ureters (3 sources) Secondary hyperparathyroidism of renal origin; Translations: [Secondary hyperparathyroidism (of renal origin)] 03-23-2024 Chronic Other diseases of kidney and ureters (1 [...] Translations: [Carpal tunnel syndrome, left upper limb] 07-07-2024 Chronic Other nervous system disorders (20 sources) Other chronic pain; Translations: [Other chronic pain] Onset: 2 Resolved: 2 Chronic Other nervous system disorders (18 sources) Carpal tunnel syndrome; Translations: [Carpal tunnel syndrome, left upper limb] Chronic Other nervous system disorders (3 sources) Carpal tunnel syndrome, left upper limb; Translations: [Carpal tunnel syndrome] Chronic Other nervous system disorders (1 source) Other chronic pain; Translations: [Other chronic pain] Onset: 3 Chronic Other non-traumatic joint disorders (20 sources) Pain in left knee; Translations: [Left [...] subcutaneous tissue, unspecified Episodic Other skin disorders (18 sources) Localized swelling, mass and lump, right upper limb; Translations: [Mass of right axilla] 09-04-2023 Episodic Other skin disorders (14 sources) Mass of chest wall; Translations: [Localized swelling, mass and lump, trunk] 09-04-2023 Episodic Other skin disorders (14 sources) Loss of hair; Translations: [Nonscarring hair loss, unspecified] 09-04-2023 Episodic Other skin disorders (4 sources) Nonscarring hair loss, unspecified; Translations: [Alopecia, unspecified] 09-04-2023 Episodic Other skin disorders (4 sources) Localized swelling, mass and lump, trunk; Translations: [Swelling, mass, or lump in chest] 09-04-2023 Episodic Other skin disorders (2 sources) Seborrheic keratosis; Translations: [Other seborrheic keratosis] 03-17-2024 Episodic Otitis media and related conditions (3 sources) Chronic nonsuppurative otitis media of right ear; Translations: [Other chronic nonsuppurative otitis media, right ear] Chronic Septicemia (except in labor) (19 sources) Sepsis; Translations: [Sepsis, unspecified organism] 12-30-2020 Episodic Comment on above: Problem List clean-u p per request of Phys. EHR Cmte Skin and subcutaneous tissue infections (19 sources) Cellulitis of scalp; Translations: [Cellulitis of head [any part, except face]] 12-13-2020 Episodic Comment on above: Problem List clean-u p per request of Phys. EHR Cmte Spondylosis; intervertebral disc disorders; other back problems [...] [CONTACT W/AND (SUSP) EXPOS COVID-19] Onset: 2 Urinary tract infections (20 sources) Urinary tract infectious disease; Translations: [Urinary tract infection, site not specified] 07-23-2021 Episodic Comment on above: Problem List clean-u p per request of Phys. 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 therapy; Translations: [OTH UNIT ASSISTANT CURRENT DRUG THERAPY] Onset: 06-14-2022 Episodic Other lower respiratory disease (3 sources) Shortness of breath; Translations: [SHORTNESS OF BREATH] Onset: 06-10-2022 Episodic Other lower respiratory disease (1 source) Dyspnea, unspecified; Translations: [DYSPNEA UNSPECIFIED] Onset: 01-28-2022 Episodic Other lower respiratory disease (2 sources) Other forms of dyspnea; Translations: [Other forms of dyspnea] Onset: 11-13-2022 Episodic Other non-traumatic joint disorders (4 sources) [...] Test Name Value Interpretation Reference Range Facility HbA1c HPLC (Bld) [Mass fract ion]on 04-06-2024 HbA1c (Bld) [Mass fraction] Hemoglobin A1c/Hemoglobin.total in Blood by HPLC [facility] No Panel Informationon 03-17 Type of biopsy: tangential Informed consent: discussed and consent obtained Informed consent comment: The risks and benefits of the biopsy were discussed. Risks include but are not limited to bleeding, infection, scarring, pain, and nerve damage. An opportunity to ask questions prior to the procedure was permitted and all questions were answered. Patient was prepped and draped in usual sterile fashion: area cleansed with alcohol. Anesthesia: the lesion was anesthetized in a standard fashion Anesthetic: 1% lidocaine w/ epinephrine 1-100,000 buffered w/ 8.4% NaHCO3 Instrument used: DermaBlade Hemostasis achieved with: electrodesiccation Outcome: patient tolerated procedure well Outcome comment: The specimen was placed in a prelabeled formalin container to be sent for pathology Post-procedure details: sterile dressing applied and wound care instructions given Post-procedure details comment: Emphasized need to contact clinic for any signs of infection, uncontrollable bleeding, or complications. Dressing type: bandage Additional details: Photo taken. Amount of lidocaine used: 1 cc [employer] Type of biopsy: tangential Informed consent: discussed and consent obtained Informed consent comment: The risks and benefits of the biopsy were discussed. Risks include but are not limited to bleeding, infection, scarring, pain, and nerve damage. An opportunity to ask questions prior to the procedure was permitted and all questions were answered. Patient was prepped and draped in usual sterile fashion: area cleansed with alcohol. Anesthesia: the lesion was anesthetized in a standard fashion Anesthetic: 1% lidocaine w/ epinephrine 1-100,000 buffered w/ 8.4% NaHCO3 Instrument used: DermaBlade Hemostasis achieved with: electrodesiccation Outcome: patient tolerated procedure well Outcome comment: The specimen was placed in a prelabeled formalin container to be sent for pathology Post-procedure details: sterile dressing applied and wound care instructions given Post-procedure details comment: Emphasized need to contact clinic for any signs of infection, uncontrollable bleeding, or complications. Dressing type: bandage Additional details: Photo taken. Amount of lidocaine used: 3 cc [employer]ox e Estimated glomerular filtrat ion rate (GFR) non- Americanon 03-16-2024 GFR/1.73 sq M.predicted among non-blacks MDRD (S/P/Bld) [Vol rate/Area] 43 mL/min/{1.73_m2} Low >=60 [facility] Laboratory - Chemistry and C hemistry - challengeon 03-16-2024 Calcium [Mass/Vol] 9.2 mg/dL 8.5-10.[address] [facility] Chloride [Moles/Vol] 102 mmol/L 98-107 [facility] CO2 [Moles/Vol] 27.5 mmol/L 21.0-32.0 [facility] Creatinine [Mass/Vol] 1.23 mg/dL High 0.55-1.02 [facility] GFR/1.73 sq M.predicted MDRD (S/P/Bld) [Vol rate/Area] 52 mL/min/{1.73_m2} Low >=60 [facility] Glucose [Mass/Vol] 240 mg/dL High 74-[address] [facility] Natriuretic peptide B (Bld) [Mass/Vol] 435.0 pg/mL <=900.0 [facility] Potassium [Moles/Vol] 4.2 mmol/L 3.5-5.1 [facility] Sodium [Moles/Vol] 136 mmol/L 136-[address] [facility] Urea nitrogen [Mass/Vol] 37.0 mg/dL High 7.0-18.0 [facility] Urea nitrogen/Creatinine [Mass ratio] 30.1 mg/mg [facility] Office Visiton 03-16-2024 Follow-up visit [id number] Libra Noonan 1950 F Date Provider Department Center 03/16/2024 PLACIDO PECK CARD [facility] Family History Problem Relation Age of Onset Rheumatic fever Mother Heart failure Mother Stroke Mother Other Mother Comments: She is unsure if this was a defibrillator Stroke Father Family Status - Relation Status Age at Mother Father Level of Service:81515 [place] OFFICE/OUTPATIENT ESTABLISHED MOD MDM 30 MIN [facility] Serum or plasma anion gap de terminationon 03-16-2024 Anion gap [Moles/Vol] 10.7 mmol/L [facility] 36on 03-09-2024 36 Patient's daughter called prior to her apt with Dr. Rosales on 03/16. She did not want to speak with the doctor or staff in front of her mother. She has concerns her mother isn't telling us everything. Daughter states her mother cannot walk from room to room without breathing heavily. Says she's very sedentary and her no muscle mass. Says patient refuses to go to the mailbox, which is not far at all. Patient gets upset with her daughter when she tries to push her. Daughter wonders if she needs to see a office technology instructor to check her lung function. Maybe she will qualify for cardiac rehab? Daughter DOES NOT WANT US TO TELL HER MOTHER THAT SHE SPOKE WITH US. [facility] 36on 01-10-2024 36 Regarding BMP from 01/09/2024: MD Lorenza Atkinson MA Please let her know her s.cr is better. Would recommend staying on the current dose of diuretics Thanks Spoke with patient and informed her of message per Dr. Rosales. She will continue furosemide 10mg every other day. [facility] Estimated glomerular filtrat ion rate (GFR) non- Americanon 01-09-2024 GFR/1.73 sq M.predicted among non-blacks MDRD (S/P/Bld) [Vol rate/Area] 41 mL/min/{1.73_m2} Low >=60 [facility] Laboratory - Chemistry and C hemistry - challengeon 01-09-2024 Calcium [Mass/Vol] 8.9 mg/dL 8.5-10.[address] [facility] Chloride [Moles/Vol] 107 mmol/L 98-107 [facility] CO2 [Moles/Vol] 28.8 mmol/L 21.0-32.0 [facility] Creatinine [Mass/Vol] 1.28 mg/dL High 0.55-1.02 [facility] GFR/1.73 sq M.predicted MDRD (S/P/Bld) [Vol rate/Area] 50 mL/min/{1.73_m2} Low >=60 [facility] Glucose [Mass/Vol] 96 mg/dL 74-[address] [facility] Potassium [Moles/Vol] 4.8 mmol/L 3.5-5.1 [facility] Sodium [Moles/Vol] 143 mmol/L 136-[address] [facility] Urea nitrogen [Mass/Vol] 29.0 mg/dL High 7.0-18.0 [facility] Urea nitrogen/Creatinine [Mass ratio] 22.7 mg/mg [facility] Serum or plasma anion gap de termination01-09-2024 Anion gap [Moles/Vol] 12.0 mmol/L [facility] 2901-02-2024 29 Addended by: LORENZA DUTTON on: 01/02/2024 09:12 AM Modules accepted: Orders [facility] 01-02-2024 36 Patient LM on our VM confirming she got my message. She will have repeat BMP next week. Order faxed. [facility] 01-01-2024 36 LM for patient timmy flanagan her to return my call. [facility] 36 Regarding BMP from 12/30/2023: MD Lorenza Atkinson MA Please have her decrease lasix to 10 mg daily and repeat BMP in 1 week Thanks Spoke with patient and she is already taking 10mg daily. Is there something else you'd like or should she stay on this dose? Please advise. Thanks. [facility] Telephoneon 01-01-2024 Telephone [id number] SaranLibra Carlson 1950 F Date Provider Department Center 01/01/2024 Baljinder8-LORENZA DUTTON Corry Garth Family History Problem Relation Age of Onset Rheumatic fever Mother Heart failure Mother Stroke Mother Other Mother Comments: She is unsure if this was a defibrillator Stroke Father Family Status - Relation Status Age at Mother Father [facility] Estimated glomerular filtrat ion rate (GFR) non- Americanon 12-30-2023 GFR/1.73 sq M.predicted among non-blacks MDRD (S/P/Bld) [Vol rate/Area] 37 mL/min/{1.73_m2} Low >=60 [facility] Laboratory - Chemistry and C hemistry - challengeon 12-30-2023 Calcium [Mass/Vol] 8.7 mg/dL 8.5-10.[address] [facility] Chloride [Moles/Vol] 107 mmol/L 98-107 [facility] CO2 [Moles/Vol] 26.9 mmol/L 21.0-32.0 [facility] Creatinine [Mass/Vol] 1.39 mg/dL High 0.55-1.02 [facility] GFR/1.73 sq M.predicted MDRD (S/P/Bld) [Vol rate/Area] 45 mL/min/{1.73_m2} Low >=60 [facility] Glucose [Mass/Vol] 193 mg/dL High 74-[address] [facility] Potassium [Moles/Vol] 4.5 mmol/L 3.5-5.1 [facility] Sodium [Moles/Vol] 141 mmol/L 136-[address] [facility] Urea nitrogen [Mass/Vol] 32.0 mg/dL High 7.0-18.0 [facility] Urea nitrogen/Creatinine [Mass ratio] 23.0 mg/mg [facility] Serum or plasma anion gap de terminationon 12-30-2023 Anion gap [Moles/Vol] 11.6 mmol/L [facility] 36on 12-16-2023 36 Regarding lab result s from 12/09/2023: [...] BMP in 2 weeks. Order faxed to [facility]. [facility] Basophils Auto (Bld) [#/Vol] on 12-09-2023 Basophils (Bld) [#/Vol] 0.0 10 3/uL 0.0-0.1 [facility] Basophils/100 WBC Auto (Bld) on 12-09-2023 Basophils/100 WBC (Bld) 0.4 % 0.2-2.0 [facility] Eosinophils/100 WBC Auto (Bl d)on 12-09-2023 Eosinophils/100 WBC (Bld) 2.7 % 0.9-7.0 [facility] Erythrocyte distribution wid th Auto (RBC) [Ratio]on 12-09-2023 Erythrocyte distribution width (RBC) [Ratio] 12.9 % 11.0-15.0 [facility] Estimated glomerular filtrat ion rate (GFR) non- Americanon 12-09-2023 GFR/1.73 sq M.predicted among non-blacks MDRD (S/P/Bld) [Vol rate/Area] 39 mL/min/{1.73_m2} Low >=60 [facility] Hematocrit Auto (Bld) [Volum e fraction]on 12-09-2023 Hematocrit (Bld) [Volume fraction] 37.7 % 36.0-48.0 [facility] Hemoglobin [Mass/volume] in Bloodon 12-09-2023 Hemoglobin (Bld) [Mass/Vol] 11.8 g/dL Low 12.0-16.0 [facility] Laboratory - Chemistry and C hemistry - challengeon 12-09-2023 Calcium [Mass/Vol] 9.1 mg/dL 8.5-10.[address] [facility] Chloride [Moles/Vol] 105 mmol/L 98-107 [facility] CO2 [Moles/Vol] 28.9 mmol/L 21.0-32.0 [facility] Cobalamin (Vitamin B12) [Mass/Vol] 492.0 pg/mL 193.0-986.0 [facility] Creatinine [Mass/Vol] 1.33 mg/dL High 0.55-1.02 [facility] Ferritin [Mass/Vol] 180.0 ng/mL 8.0-252.0 [facility] GFR/1.73 sq M.predicted MDRD (S/P/Bld) [Vol rate/Area] 48 mL/min/{1.73_m2} Low >=60 [facility] Glucose [Mass/Vol] 162 mg/dL High 74-[address] [facility] Potassium [Moles/Vol] 4.7 mmol/L 3.5-5.1 [facility] Sodium [Moles/Vol] 138 mmol/L 136-[address] [facility] Urea nitrogen [Mass/Vol] 33.0 mg/dL High 7.0-18.0 [facility] Urea nitrogen/Creatinine [Mass ratio] 24.8 mg/mg [facility] Laboratory - Hematology and Cell countson 12-09-2023 Immature granulocytes/100 WBC (Bld) 0.4 % 0.0-0.5 [facility] Leukocytes [#/volume] correc nicholas for nucleated erythrocytes in Blood by Automated counon 12-09-2023 WBC corrected for nucl RBC Auto (Bld) [#/Vol] 9.4 10 3/uL 4.0-11.0 [facility] Lymphocytes Auto (Bld) [#/Vo l]on 12-09-2023 Lymphocytes (Bld) [#/Vol] 2.5 10 3/uL 1.2-3.8 [facility] Lymphocytes/100 WBC Auto (Bl d)on 12-09-2023 Lymphocytes/100 WBC (Bld) 26.3 % 20.5-60.0 [facility] MCH Auto (RBC) [Entitic mass ]on 12-09-2023 MCH (RBC) [Entitic mass] 29.1 pg 26.7-34.0 [facility] MCHC Auto (RBC) [Mass/Vol]on 12-09-2023 MCHC (RBC) [Mass/Vol] 31.3 g/dL 29.9-35.2 [facility] MCV Auto (RBC) [Entitic vol] on 12-09-2023 MCV (RBC) [Entitic vol] 92.9 fL 81.0-99.0 [facility] Monocytes Auto (Bld) [#/Vol] on 12-09-2023 Monocytes (Bld) [#/Vol] 0.5 10 3/uL 0.3-0.8 [facility] Monocytes/100 WBC Auto (Bld) on 12-09-2023 Monocytes/100 WBC (Bld) 5.2 % 1.7-12.0 [facility] Neutrophils Auto (Bld) [#/Vo l]on 12-09-2023 Neutrophils (Bld) [#/Vol] 6.1 10 3/uL 1.4-6.5 [facility] Neutrophils/100 WBC Auto (Bl d)on 12-09-2023 Neutrophils/100 WBC (Bld) 65.0 % 43.0-75.0 [facility] No Panel Informationon 12-08 Eosinophils # (Auto) 0.3 10 3/uL 0.0-0.7 [facility] Folate 21.20 ng/mL 8.60-58.90 [facility] Immature Granulocyte # (Auto) 0.04 10 3/uL High 0.00-0.03 [facility] Platelet mean volume Auto (B ld) [Entitic vol]on 12-09-2023 Platelet mean volume (Bld) [Entitic vol] 10.4 fL 9.5-13.5 [facility] Platelets Auto (Bld) [#/Vol] on 12-09-2023 Platelets (Bld) [#/Vol] 242 10 3/uL 150-450 [facility] RBC Auto (Bld) [#/Vol]on RBC (Bld) [#/Vol] 4.06 10 6/uL Low 4.20-5.40 [facility] Serum or plasma anion gap de terminationon 12-09-2023 Anion gap [Moles/Vol] 8.8 mmol/L [facility] 36on 12-03-2023 36 Regarding lab result s from 11/29/2023: MD Lorenza Atkinson MA Please let her know her s.cr is mildly elevated; would like her to decrease lasix to 10 mg (1/2 a tablet) daily and repeat BMP in 5 days Thanks Spoke with patient and made her aware. BMP sent to [facility]. She will have drawn on Saturday, 12/08. [facility] Estimated glomerular filtrat ion rate (GFR) non- Americanon 11-29-2023 GFR/1.73 sq M.predicted among non-blacks MDRD (S/P/Bld) [Vol rate/Area] 37 mL/min/{1.73_m2} Low >=60 [facility] Laboratory - Chemistry and C hemistry - challengeon 11-29-2023 Calcium [Mass/Vol] 9.0 mg/dL 8.5-10.[address] [facility] Chloride [Moles/Vol] 104 mmol/L 98-107 [facility] CO2 [Moles/Vol] 28.5 mmol/L 21.0-32.0 [facility] Creatinine [Mass/Vol] 1.41 mg/dL High 0.55-1.02 [facility] GFR/1.73 sq M.predicted MDRD (S/P/Bld) [Vol rate/Area] 44 mL/min/{1.73_m2} Low >=60 [facility] Glucose [Mass/Vol] 142 mg/dL High 74-[address] [facility] Potassium [Moles/Vol] 4.2 mmol/L 3.5-5.1 [facility] Sodium [Moles/Vol] 140 mmol/L 136-[address] [facility] Urea nitrogen [Mass/Vol] 31.0 mg/dL High 7.0-18.0 [facility] Urea nitrogen/Creatinine [Mass ratio] 22.0 mg/mg [facility] Serum or plasma anion gap de terminationon 11-29-2023 Anion gap [Moles/Vol] 11.7 mmol/L [facility] Office Visiton 11-25-2023 Follow-up visit [id number] Libra Noonan 1950 Date Provider Department Center 11/25/2023 271-PLACIDO ROSALES Family History Problem Relation Age of Onset Rheumatic fever Mother Heart failure Mother Stroke Mother Other Mother Comments: She is unsure if this was a defibrillator Stroke Father Family Status - Relation Status Age at Mother Father Level of Service:38022 [place] OFFICE/OUTPATIENT ESTABLISHED MOD MDM 30 MIN [facility] 11-11-2023 36 Patient called to report back to you after decreased carvedilol back down to 12.5mg. She isn't as dizzy. BP still around 90's/60's. She did stop Bumex also after last lab work. Any recommendations? Please advise. Thanks. [facility] 36on 11-06-2023 36 Spoke with patient a nd she will cut the 25mg tablets in half- for 12.5mg bid. I asked her to let me know if she doesn't feel better in a few days. Patient verbalized understanding. Called patient back a few minutes later after I saw message per Dr. Rosales regarding her labs from 11/04/2023: MD Lorenza Atkinson MA Please let her know the diuresis has worsened her kidney function. Have her stop Bumex, and repeat BMP in 3 days If she is having any new or worsening symptoms, she is to let us know Thanks Patient then made aware to stop Bumex. [facility] 36 Patient called c/o weakness, nausea, and increased dizziness since increased carvedilol and adding Bumex s/p cath on 10/24. 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 Her BP just now on the phone was 92/63, HR 69. Any recommendations? Please advise. [facility] Telephoneon 11-06-2023 Telephone [id number] Libra Noonan 1950 Date Provider Department Center 11/06/2023 LORENZA DALLAS Family History Problem Relation Age of Onset Rheumatic fever Mother Heart failure Mother Stroke Mother Other Mother Comments: She is unsure if this was a defibrillator Stroke Father Family Status - Relation Status Age at Mother Father [facility] Estimated glomerular filtrat ion rate (GFR) non- Americanon 11-04-2023 GFR/1.73 sq M.predicted among non-blacks MDRD (S/P/Bld) [Vol rate/Area] 28 mL/min/{1.73_m2} Low >=60 [facility] Laboratory - Chemistry and C hemistry - challengeon 11-04-2023 Calcium [Mass/Vol] 9.4 mg/dL 8.5-10.[address] [facility] Chloride [Moles/Vol] 101 mmol/L 98-107 [facility] CO2 [Moles/Vol] 26.9 mmol/L 21.0-32.0 [facility] Creatinine [Mass/Vol] 1.79 mg/dL High 0.55-1.02 [facility] GFR/1.73 sq M.predicted MDRD (S/P/Bld) [Vol rate/Area] 34 mL/min/{1.73_m2} Low >=60 [facility] Glucose [Mass/Vol] 191 mg/dL High 74-[address] [facility] Potassium [Moles/Vol] 4.0 mmol/L 3.5-5.1 [facility] Sodium [Moles/Vol] 138 mmol/L 136-[address] [facility] Urea nitrogen [Mass/Vol] 69.0 mg/dL High 7.0-18.0 [facility] Urea nitrogen/Creatinine [Mass ratio] 38.5 mg/mg [facility] Serum or plasma anion gap de terminationon 11-04-2023 Anion gap [Moles/Vol] 14.1 mmol/L [facility] ANESon 10-25-2023 ANES -- Attestation signed by Placido Rosales MD at 10/25/2023 9:13 AM Placido Rosales MD, MPH, FACC, [facility], [facility] Interventional Cardiology Pager Email: [email or web address] Patient: Libra Noonan Procedure Information Date/Time: 10/25/23 1100 Procedure: Coronary angiography (Bilateral) - WILL NEED TO ADJUST INSULIN Location: [facility] FINANCIAL REPRESENTATIVE 3 / [facility] VASCULAR LAB (Cath) Providers: Placido Rosales MD Clinical information reviewed: [employer] Meds OB Status Physical Exam Airway Mallampati: III TM distance: >3 FB Neck ROM: full Cardiovascular Rhythm: regular Rate: normal Dental Pulmonary Abdominal (+) obese Anesthesia Plan ASA 3 Anesthetic plan and risks discussed with patient. Use of blood products discussed with patient who. Plan discussed with attending. Additional Equipment Requests [facility] HPon 10-25-2023 HP -- Attestation signed by Placido oRsales MD at 10/25/2023 9:13 AM Placido Rosales MD, MPH, [facility], [facility], [facility] Interventional Cardiology Pager Email: [email or web address] H&P reviewed. The patient was examined and [...] were addressed and answered. Savita Becker MD Bean Roaster - PGY5 [facility] NURSNOTEon 10-25-2023 NURSNOTE RN educated pt on d/ c instructions. RN encouraged pt to voice any questions or concerns. Pt verbalizes no questions or concerns at this time. Pt was wheeled off of unit with all of belongings. [facility] NURSNOTE Dr. Pedroza notifi ed of pt tearfully in pain at right internal jugular site. RN currently holding pressure to stop oozing. Dr. Pedroza assessed patient and ordered pt to stay an extra hour before discharge and to monitor site. He verbalized site looked normal. [facility] Orders Onlyon 10-25-2023 Orders Only [id number] Libra Noonan 1950 F Date Provider Department Center 10/25/2023 KENDRA MAI [facility] Family History Problem Relation Age of Onset Rheumatic fever Mother Heart failure Mother Stroke Mother Other Mother Comments: She is unsure if this was a defibrillator Stroke Father Family Status - Relation Status Age at Mother Father [facility] Basophils Auto (Bld) [#/Vol] on 10-17-2023 Basophils (Bld) [#/Vol] 0.0 10 3/uL 0.0-0.1 [facility] Basophils/100 WBC Auto (Bld) on 10-17-2023 Basophils/100 WBC (Bld) 0.6 % 0.2-2.0 [facility] Cholesterol in LDL Calc [Mas s/Vol]on 10-17-2023 Cholesterol in LDL [Mass/Vol] 44.0 mg/dL [facility] Comment on above: <100 mg/dl [id number] 0-129 mg/dl NEAR OR ABOVE [id number] mg/dl BORDERLINE [id number] mg/dl HIGH>190 mg/dl VERY HIGH Cholesterol in VLDL Calc [Ma ss/Vol]on 10-17-2023 Cholesterol in VLDL [Mass/Vol] 13.6 mg/dL [facility] Eosinophils/100 WBC Auto (Bl d)on 10-17-2023 Eosinophils/100 WBC (Bld) 1.4 % 0.9-7.0 [facility] Erythrocyte distribution wid th Auto (RBC) [Ratio]on 10-17-2023 Erythrocyte distribution width (RBC) [Ratio] 12.0 % 11.0-15.0 [facility] Estimated glomerular filtrat ion rate (GFR) non- Americanon 10-17-2023 GFR/1.73 sq M.predicted among non-blacks MDRD (S/P/Bld) [Vol rate/Area] 42 mL/min/{1.73_m2} Low >=60 [facility] Globulin Calc (S) [Mass/Vol] on 10-17-2023 Globulin (S) [Mass/Vol] 3.6 g/dL [facility] Glucose mean value [Mass/vol ume] in Blood Estimated from glycated hemoglobinon 10-17-2023 Average glucose Estimated from glycated hemoglobin (Bld) [Mass/Vol] 177 mg/dL [facility] Hematocrit Auto (Bld) [Volum e fraction]on 10-17-2023 Hematocrit (Bld) [Volume fraction] 35.3 % Low 36.0-48.0 [facility] Hemoglobin [Mass/volume] in Bloodon 10-17-2023 Hemoglobin (Bld) [Mass/Vol] 11.1 g/dL Low 12.0-16.0 [facility] Laboratory - Chemistry and C hemistry - challengeon 10-17-2023 Albumin [Mass/Vol] 3.6 g/dL 3.4-5.[address] [facility] ALP [Catalytic activity/Vol] 105 U/L 46-116 [facility] ALT [Catalytic activity/Vol] 30 U/L 14-59 [facility] AST [Catalytic activity/Vol] 17 U/L 15-37 [facility] Bilirubin [Mass/Vol] 0.5 mg/dL 0.2-1.0 [facility] Calcium [Mass/Vol] 9.4 mg/dL 8.5-10.[address] [facility] Chloride [Moles/Vol] 105 mmol/L 98-107 [facility] Cholesterol [Mass/Vol] 122 mg/dL <=200 [facility] Cholesterol in HDL [Mass/Vol] 65 mg/dL High 40-60 [facility] Comment on above: > or =60 mg/dl - LOW CARDIOVASCULAR RISK<40 mg/dl - HIGH CARDIOVASCULAR RISK CO2 [Moles/Vol] 26.7 mmol/L 21.0-32.0 [facility] Creatinine [Mass/Vol] 1.25 mg/dL High 0.55-1.02 [facility] GFR/1.73 sq M.predicted MDRD (S/P/Bld) [Vol rate/Area] 51 mL/min/{1.73_m2} Low >=60 [facility] Glucose [Mass/Vol] 212 mg/dL High 74-[address] [facility] Potassium [Moles/Vol] 4.7 mmol/L 3.5-5.1 [facility] Protein [Mass/Vol] 7.2 g/dL 6.4-8.[address] [facility] Sodium [Moles/Vol] 141 mmol/L 136-[address] [facility] Triglyceride [Mass/Vol] 68 mg/dL <=150 [facility] TSH Qn 2.291 m[IU]/L 0.358-3.740 [facility] Urea nitrogen [Mass/Vol] 30.0 mg/dL High 7.0-18.0 [facility] Urea nitrogen/Creatinine [Mass ratio] 24.0 mg/mg [facility] Laboratory - Hematology and Cell countson 10-17-2023 HbA1c (Bld) [Mass fraction] 7.8 % High 4.5-6.2 [facility] Comment on above: ADA RECOMMENDED LIMI T 4.0 - 6.0ADA THERAPEUTIC TARGET < 7.0ACTION SUGGESTED> 7.0 Immature granulocytes/100 WBC (Bld) 0.3 % 0.0-0.5 [facility] Leukocytes [#/volume] correc nicholas for nucleated erythrocytes in Blood by Automated counon 10-17-2023 WBC corrected for nucl RBC Auto (Bld) [#/Vol] 7.2 10 3/uL 4.0-11.0 [facility] Lymphocytes Auto (Bld) [#/Vo l]on 10-17-2023 Lymphocytes (Bld) [#/Vol] 2.1 10 3/uL 1.2-3.8 [facility] Lymphocytes/100 WBC Auto (Bl d)on 10-17-2023 Lymphocytes/100 WBC (Bld) 29.8 % 20.5-60.0 [facility] MCH Auto (RBC) [Entitic mass ]on 10-17-2023 MCH (RBC) [Entitic mass] 29.7 pg 26.7-34.0 [facility] MCHC Auto (RBC) [Mass/Vol]on 10-17-2023 MCHC (RBC) [Mass/Vol] 31.4 g/dL 29.9-35.2 [facility] MCV Auto (RBC) [Entitic vol] on 10-17-2023 MCV (RBC) [Entitic vol] 94.4 fL 81.0-99.0 [facility] Monocytes Auto (Bld) [#/Vol] on 10-17-2023 Monocytes (Bld) [#/Vol] 0.4 10 3/uL 0.3-0.8 [facility] Monocytes/100 WBC Auto (Bld) on 10-17-2023 Monocytes/100 WBC (Bld) 6.1 % 1.7-12.0 [facility] Neutrophils Auto (Bld) [#/Vo l]on 10-17-2023 Neutrophils (Bld) [#/Vol] 4.5 10 3/uL 1.4-6.5 [facility] Neutrophils/100 WBC Auto (Bl d)on 10-17-2023 Neutrophils/100 WBC (Bld) 61.8 % 43.0-75.0 [facility] No Panel Informationon 10-16 Eosinophils # (Auto) 0.1 10 3/uL 0.0-0.7 [facility] Immature Granulocyte # (Auto) 0.02 10 3/uL 0.00-0.03 [facility] Platelet mean volume Auto (B ld) [Entitic vol]on 10-17-2023 Platelet mean volume (Bld) [Entitic vol] 10.9 fL 9.5-13.5 [facility] Platelets Auto (Bld) [#/Vol] on 10-17-2023 Platelets (Bld) [#/Vol] 214 10 3/uL 150-450 [facility] RBC Auto (Bld) [#/Vol]on RBC (Bld) [#/Vol] 3.74 10 6/uL Low 4.20-5.40 [facility] Serum or plasma albumin/glob ulin mass ratioon 10-17-2023 Albumin/Globulin [Mass ratio] 1.0 {ratio} [facility] Serum or plasma anion gap de terminationon 10-17-2023 Anion gap [Moles/Vol] 14.0 mmol/L [facility] Serum or plasma total choles terol/high density lipoprotein (HDL) cholesterol mass helen 10-17-2023 Cholesterol.total/C holesterol in HDL [Mass ratio] 1.9 {ratio} [facility] Comment on above: 3.3 - 4.4 LOW RISK4. 4 - 7.1 AVERAGE RISK7.1 - 11.0 MODERATE RISK>11.0 HIGH RISK HPon 10-09-2023 [facility] Cardiology Clinic Note Chief Complaint: Patient [...] with reversib (more content not included)... Normal [facility] Office Visiton 10-09-2023 Follow-up visit [id number] Libra Noonan M 1950 F Date Provider Department Center 10/09/2023 [facility] Family History Problem Relation Age of Onset Rheumatic fever Mother Heart failure Mother Stroke Mother Other Mother Comments: She is unsure if this was a defibrillator Stroke Father Family Status - Relation Status Age at Mother Father Level of Service:57116 [place] OFFICE/OUTPATIENT ESTABLISHED HIGH MDM 40 MIN [facility] Orders Onlyon 10-09-2023 Orders Only [id number] Libra Noonan 1950 F Date Provider Department Center 10/09/2023 [facility]SE [facility] Family History Problem Relation Age of Onset Rheumatic fever Mother Heart failure Mother Stroke Mother Other Mother Comments: She is unsure if this was a defibrillator Stroke Father Family Status - Relation Status Age at Mother Father [facility] Office Visiton 09-13-2023 Follow-up visit [id number] Libra Noonan 1950 F Date Provider Department Center 09/13/2023 3848-DANIELA [facility]DRIC[facility] Family History Problem Relation Age of Onset Rheumatic fever Mother Heart failure Mother Stroke Mother Other Mother Comments: She is unsure if this was a defibrillator Stroke Father Family Status - Relation Status Age at Mother Father Level of Service:21042 [place] OFFICE/OUTPATIENT ESTABLISHED MOD MDM 30 MIN [facility] 09-12-2023 36 Patient is scheduled for apt tomorrow with Dr. Hendricks. [facility] 09-11-2023 36 Patient was seen in [facility] ED in Jul for chest pain. Says she's still having it often. She doesn't want to wait until 09/17 to see you in the office. Did you want testing prior to an office visit? I uploaded all the ED records into her senior media director for your review. Please advise. Thanks. [facility] 09-04-2023 36 I received a call fr nichole Bell's office. She asked me to reach out to Libra to get her scheduled for a follow up. She told me she's been having left-sided chest pain, and was evaluated in the ED recently. I LM on patient's VM asking her to return my call. Normal [facility] Basophils Auto (Bld) [#/Vol] on 08-16-2023 Basophils (Bld) [#/Vol] 0.1 10 3/uL 0.0-0.1 [facility] Basophils/100 WBC Auto (Bld) on 08-16-2023 Basophils/100 WBC (Bld) 0.9 % 0.2-2.0 [facility] Eosinophils/100 WBC Auto (Bl d)on 08-16-2023 Eosinophils/100 WBC (Bld) 6.5 % 0.9-7.0 [facility] Erythrocyte distribution wid th Auto (RBC) [Ratio]on 08-16-2023 Erythrocyte distribution width (RBC) [Ratio] 12.3 % 11.0-15.0 [facility] Estimated glomerular filtrat ion rate (GFR) non- Americanon 08-16-2023 GFR/1.73 sq M.predicted among non-blacks MDRD (S/P/Bld) [Vol rate/Area] 44 mL/min/{1.73_m2} >=60 [facility] Fibrin D-dimer [Presence] in Platelet poor plasma by Latex agglutinationon 08-16-2023 Fibrin D-dimer LA Ql (PPP) 0.72 mg/L FEU <=0.59 [facility] Comment on above: RESULTS CALLED TO [...] on 08-16-2023 Globulin (S) [Mass/Vol] 3.7 g/dL [facility] Hematocrit Auto (Bld) [Volum e fraction]on 08-16-2023 Hematocrit (Bld) [Volume fraction] 36.1 % 36.0-48.0 [facility] Hemoglobin [Mass/volume] in Bloodon 08-16-2023 Hemoglobin (Bld) [Mass/Vol] 11.6 g/dL 12.0-16.0 [facility] Laboratory - Chemistry and C hemistry - challengeon 08-16-2023 Albumin [Mass/Vol] 3.1 g/dL 3.4-5.[address] [facility] ALP [Catalytic activity/Vol] 100 U/L 46-116 [facility] ALT [Catalytic activity/Vol] 22 U/L 14-59 [facility] AST [Catalytic activity/Vol] 17 U/L 15-37 [facility] Bilirubin [Mass/Vol] 0.6 mg/dL 0.2-1.0 [facility] Calcium [Mass/Vol] 9.1 mg/dL 8.5-10.[address] [facility] Chloride [Moles/Vol] 106 mmol/L 98-107 [facility] CO2 [Moles/Vol] 28.5 mmol/L 21.0-32.0 [facility] Creatinine [Mass/Vol] 1.21 mg/dL 0.55-1.02 [facility] GFR/1.73 sq M.predicted MDRD (S/P/Bld) [Vol rate/Area] 53 mL/min/{1.73_m2} >=60 [facility] Glucose [Mass/Vol] 214 mg/dL 74-[address] [facility] Lipase [Catalytic activity/Vol] 15.0 U/L 16.0-77.0 [facility] Natriuretic peptide B (Bld) [Mass/Vol] 447.0 pg/mL <=900.0 [facility] Potassium [Moles/Vol] 4.3 mmol/L 3.5-5.1 [facility] Protein [Mass/Vol] 6.8 g/dL 6.4-8.[address] [facility] Sodium [Moles/Vol] 144 mmol/L 136-[address] [facility] Urea nitrogen [Mass/Vol] 23.0 mg/dL 7.0-18.0 [facility] Urea nitrogen/Creatinine [Mass ratio] 19.0 mg/mg [facility] Laboratory - Hematology and Cell countson 08-16-2023 Immature granulocytes/100 WBC (Bld) 0.3 % 0.0-0.5 [facility] Leukocytes [#/volume] correc nicholas for nucleated erythrocytes in Blood by Automated counon 08-16-2023 WBC corrected for nucl RBC Auto (Bld) [#/Vol] 7.0 10 3/uL 4.0-11.0 [facility] Lymphocytes Auto (Bld) [#/Vo l]on 08-16-2023 Lymphocytes (Bld) [#/Vol] 1.7 10 3/uL 1.2-3.8 [facility] Lymphocytes/100 WBC Auto (Bl d)on 08-16-2023 Lymphocytes/100 WBC (Bld) 24.4 % 20.5-60.0 [facility] MCH Auto (RBC) [Entitic mass ]on 08-16-2023 MCH (RBC) [Entitic mass] 30.6 pg 26.7-34.0 [facility] MCHC Auto (RBC) [Mass/Vol]on 08-16-2023 MCHC (RBC) [Mass/Vol] 32.1 g/dL 29.9-35.2 [facility] MCV Auto (RBC) [Entitic vol] on 08-16-2023 MCV (RBC) [Entitic vol] 95.3 fL 81.0-99.0 [facility] Monocytes Auto (Bld) [#/Vol] on 08-16-2023 Monocytes (Bld) [#/Vol] 0.4 10 3/uL 0.3-0.8 [facility] Monocytes/100 WBC Auto (Bld) on 08-16-2023 Monocytes/100 WBC (Bld) 6.3 % 1.7-12.0 [facility] Neutrophils Auto (Bld) [#/Vo l]on 08-16-2023 Neutrophils (Bld) [#/Vol] 4.3 10 3/uL 1.4-6.5 [facility] Neutrophils/100 WBC Auto (Bl d)on 08-16-2023 Neutrophils/100 WBC (Bld) 61.6 % 43.0-75.0 [facility] No Panel Informationon 08-16 Eosinophils # (Auto) 0.5 10 3/uL 0.0-0.7 [facility] Immature Granulocyte # (Auto) 0.02 10 3/uL 0.00-0.03 [facility] Troponin I High Sensitivity 12.0 pg/mL 4.0-51.3 [facility] Comment on above: CUT-OFF POINTS HAVE [...] volume (Bld) [Entitic vol] 10.3 fL 9.5-13.5 [facility] Platelets Auto (Bld) [#/Vol] on 08-16-2023 Platelets (Bld) [#/Vol] 214 10 3/uL 150-450 [facility] RBC Auto (Bld) [#/Vol]on RBC (Bld) [#/Vol] 3.79 10 6/uL 4.20-5.40 [facility] Serum or plasma albumin/glob ulin mass ratioon 08-16-2023 Albumin/Globulin [Mass ratio] 0.8 {ratio} [facility] Serum or plasma anion gap de terminationon 08-16-2023 Anion gap [Moles/Vol] 13.8 mmol/L [facility] Office Visiton 05-08-2023 Follow-up visit [id number] Libra Noonan 1950 F Date Provider Department Center 05/08/2023 RIMA VICK CARD [facility] Family History Problem Relation Age of Onset Rheumatic fever Mother Heart failure Mother Stroke Mother Other Mother Comments: She is unsure if this was a defibrillator Stroke Father Family Status - Relation Status Age at Mother Father Level of Service:71368 [place] OFFICE/OUTPATIENT ESTABLISHED LOW MDM 20-29 MIN Reason for Visit and Comments: Follow-up [079019] Hypertension [613428] Coronary Artery Disease [187] Hyperlipidemia [182] Normal [facility] XR lumbar spine AP/LAT/FLX/E XTon 04-23-2023 XR lumbar spine AP/LAT/FLX/EXT [facility] [place] [address] [place] [address] XRay Report Signed Patient: Libra Noonan MR#: [id number] : 1950 Acct:[id number] Age/Sex: 72 / F ADM Date: 04/23/23 Loc: [facility] Room: Type: [facility] Attending Dr: Eric Villanueva MD Copies to: [...] Jacinto Bolden M.D.04/23/2023 3:43 PM Dictation Location: [place] [address] Transcribed By: [facility] 04/23/23 154 Dictated By: Jacinto Bolden DO 04/23/23 1539 Signed By: 04/23/23 1543 Normal [facility] CBC AUTO DIFFon 11-06-2022 BASO # 0.0 103/ul Normal 0.0-0.1 [facility] Comment on above: Performed By: #### C BC #### [facility] [address] [place] [address] [address] Dylan Santana Basophils/100 WBC (Bld) 0.2 % Normal 0.2-2.0 [facility] Comment on above: Performed By: #### C BC #### [facility] [address] [place] [address] [address] Dylan Santana EO # 0.0 103/ul Normal 0.0-0.7 [facility] Comment on above: Performed By: #### C BC #### [facility] [address] [place] [address] Dr. yDlan Santana Eosinophils/100 WBC (Bld) 0.2 % Critically low 0.9-7.0 [facility] Comment on above: Performed By: #### C BC #### [facility] [address] [place] [address] Dr. Dylan Santana Erythrocyte distribution width (RBC) [Ratio] 12.1 % Normal 11.0-15.0 [facility] Comment on above: Performed By: #### C BC #### [facility] [address] [place] [address] Dr. Dylan Santana Hematocrit (Bld) [Volume fraction] 42.7 % Normal 36.0-48.0 [facility] Comment on above: Performed By: #### C BC #### [facility] [address] [place] [address] Dr. Dylan Santana Hemoglobin (Bld) [Mass/Vol] 13.9 g/dL Normal 12.0-16.0 [facility] Comment on above: Performed By: #### C BC #### [facility] [address] [place] [address] Dr. Dylan Santana IG # 0.05 10e3/ul Critically high 0.00-0.03 [facility] Comment on above: Performed By: #### C BC #### [facility] [address] [place] [address] Dr. Dylan Santana IG % 0.5 % Normal 0.0-0.5 [facility] Comment on above: Performed By: #### C BC #### [facility] [address] [place] [address] Dr. Dylan Santana LYMPH # 2.1 103/ul Normal 1.2-3.8 [facility] Comment on above: Performed By: #### C BC #### [facility] [address] [place] [address] Dr. Dylan Santana Lymphocytes/100 WBC (Bld) 20.8 % Normal 20.5-60.0 [facility] Comment on above: Performed By: #### C BC #### [facility] [address] [place] [address] Dr. Dylan Santana MANUAL DIFF REQ NO Normal [facility] Comment on above: Performed By: #### C BC #### [facility] [address] [place] [address] Dr. Dylan Santana MCH (RBC) [Entitic mass] 30.1 pg Normal 26.7-34.0 [facility] Comment on above: Performed By: #### C BC #### [facility] [address] [place] [address] Dr. Dylan Santana MCHC (RBC) [Mass/Vol] 32.6 g/dL Normal 29.9-35.2 [facility] Comment on above: Performed By: #### C BC #### [facility] [address] [place] [address] Dr. Dylan Santana MCV (RBC) [Entitic vol] 92.4 fL Normal 81.0-99.0 [facility] Comment on above: Performed By: #### C BC #### [facility] [address] [place] [address] Dr. Dylan Santana MONO # 0.4 103/ul Normal 0.3-0.8 [facility] Comment on above: Performed By: #### C BC #### [facility] [address] [place] [address] Dr. Dylan Santana Monocytes/100 WBC (Bld) 3.8 % Normal 1.7-12.0 [facility] Comment on above: Performed By: #### C BC #### [facility] [address] [place] [address] Dr. Dylan Santana NEUT # 7.6 103/ul Critically high 1.4-6.5 [facility] Comment on above: Performed By: #### C BC #### [facility] [address] [address] [address] Dylan Santana Neutrophils/100 WBC (Bld) 74.5 % Normal 43.0-75.0 [facility] Comment on above: Performed By: #### C BC #### [facility] [address] [place] [address] Dr. Dylan Santana Platelet mean volume (Bld) [Entitic vol] 10.4 fL Normal 9.5-13.5 [facility] Comment on above: Performed By: #### C BC #### [facility] [address] [address] [address] Dylan Santana PLT 228 103/ul Normal 150-450 [facility] Comment on above: Performed By: #### C BC #### [facility] [address] [place] [address] Dr. Dylan Santana RBC 4.62 106/ul Normal 4.20-5.40 [facility] Comment on above: Performed By: #### C BC #### [facility] [address] [place] [address] Dr. Dylan Santana WBC 10.2 103/ul Normal 4.0-11.0 [facility] Comment on above: Performed By: #### C BC #### [facility] [address] [place] [address] Dr. Dylan Santana GLYCOHEMOGLOBIN A1Con 2022 ADA RECOMMENDATION SEE BELOW Normal [facility] Comment on above: Result Comment: ADA RECOMMENDED LIMIT 4.0 - 6.0 ADA THERAPEUTIC TARGET < 7.0 ACTION SUGGESTED > 7.0 Performed By: #### A 1C #### [facility] [address] [place] [address] Dr. Dylan Santana Glucose [Mass/Vol] 214 mg/dL Normal [facility] Comment on above: Performed By: #### A 1C #### [facility] [address] [place] [address] Dr. Dylan Santana HbA1c (Bld) [Mass fraction] 9.1 % Critically high 4.5-6.2 [facility] Comment on above: Performed By: #### A 1C #### [facility] [address] [place] [address] [address] Dylan Santana LIPID PROFILEon 11-06-2022 CHOL-HDL RATIO NORM SEE BELOW Normal [facility] Comment on above: Result Comment: 3.3 - 4.4 LOW RISK 4.4 - 7.1 AVERAGE RISK 7.1 - 11.0 MODERATE RISK >11.0 HIGH RISK Performed By: #### L IPID #### [facility] [address] [place] [address] [address] Dylan Santana Cholesterol [Mass/Vol] 142 mg/dL Normal <=200 [facility] Comment on above: Performed By: #### L IPID #### [facility] [address] [address] [address] Dylan Santana Cholesterol in HDL [Mass/Vol] 74 mg/dL Critically high 40-60 [facility] Comment on above: Performed By: #### L IPID #### [facility] [address] [place] [address] [address] Dylan Santana Cholesterol in LDL [Mass/Vol] 49.4 mg/dL Normal [facility] Comment on above: Performed By: #### L IPID #### [facility] [address] [address] [address] Dylan Santana Cholesterol.total/C holesterol in HDL [Mass ratio] 1.9 {ratio} Normal [facility] Comment on above: Performed By: #### L IPID #### [facility] [address] [address] [address] Dylan Santana HDL NORMAL > or = 60 mg/dl - LO W CARDIOVASCULAR RISK <40 mg/dl - HIGH CARDIOVASCULAR RISK Normal [facility] Comment on above: Performed By: #### L IPID #### [facility] [address] [id number] Dylan Santana LDL CALC NORMAL SEE BELOW Normal [facility] Comment on above: Result Comment: <100 mg/dl OPTIMAL 100 - 129 mg/dl NEAR OR ABOVE OPTIMAL 130 - 159 mg/dl BORDERLINE HIGH 160 - 189 mg/dl HIGH >190 mg/dl VERY HIGH Performed By: #### L IPID #### [facility] [address] [address] [address] Dylan Santana Triglyceride [Mass/Vol] 93 mg/dL Normal <=150 [facility] Comment on above: Performed By: #### L IPID #### [facility] [address] [address] [address] Dylan Santana VLDL CALC 18.6 mg/dL Normal [facility] Comment on above: Performed By: #### L IPID #### [facility] [address] [address] [address] Dylan Santana PROF CHEM 8 (BAS METB)on Anion gap [Moles/Vol] 12.8 mmol/L Normal [facility] Comment on above: Performed By: #### C BC #### [facility] [address] [place] [address] Dr. Dylan Santana Calcium [Mass/Vol] 9.5 mg/dL Normal 8.5-10.1 [facility] Comment on above: Performed By: #### C BC #### [facility] [address] [address] [address] Dylan Santana Chloride [Moles/Vol] 105 mmol/L Normal 98-107 [facility] Comment on above: Performed By: #### C BC #### [facility] [address] [place] [address] Dr. Dylan Santana CO2 [Moles/Vol] 28.1 mmol/L Normal 21.0-32.0 [facility] Comment on above: Performed By: #### C BC #### [facility] [address] [address] [address] Dylan Santana Creatinine [Mass/Vol] 1.29 mg/dL Critically high 0.55-1.02 [facility] Comment on above: Performed By: #### C BC #### [facility] [address] [place] [address] Dr. Dylan Santana EGFR-AF MAURITANIAN 49 mL/min/1.73m2 Critically low >=60 [facility] Comment on above: Performed By: #### C BC #### [facility] [address] [place], [place] [address] Dr. Dylan Santana EGFR-NON AF MAURITANIAN 41 mL/min/1.73m2 Critically low >=60 [facility] Comment on above: Performed By: #### C BC #### [facility] [address] [place], [place] [address] Dr. Dylan Santana Glucose [Mass/Vol] 290 mg/dL Critically high 74-106 [facility] Comment on above: Performed By: #### C BC #### [facility] [address] [place], [place] [address] Dr. Dylan Santana Potassium [Moles/Vol] 4.9 mmol/L Normal 3.5-5.1 [facility] Comment on above: Performed By: #### C BC #### [facility] [address] [address] [address] Dylan Santana Sodium [Moles/Vol] 141 mmol/L Normal 136-145 [facility] Comment on above: Performed By: #### C BC #### [facility] [address] [place], [place] [address] Dr. Dylan Santana Urea nitrogen [Mass/Vol] 30.0 mg/dL Critically high 7.0-18.0 [facility] Comment on above: Performed By: #### C BC #### [facility] [phone] Dylan Santana Urea nitrogen/Creatinine [Mass ratio] 23.3 mg/mg Normal [facility] Comment on above: Performed By: #### C BC #### [facility] [phone] Dylan Santana XR SHOULDER LT 2V or >on XR [...] MARIE TINEO Date: 2022-07-26 16:54 Normal [facility] XR CHEST 2 Von 06-19-2022 XR CHEST [...] WEI REED Date: 2022-06-19 18:36 Normal [facility] BNPon 06-10-2022 Natriuretic peptide B (Bld) [Mass/Vol] 683.0 pg/mL Normal <=900.0 [facility] Comment on above: Performed By: #### L IPID, TSH, CMP #### [facility] [address] [place] [address] Dr. Dylan Santana CBC AUTO DIFFon 06-10-2022 BASO # 0.0 103/ul Normal 0.0-0.1 [facility] Comment on above: Performed By: #### C BC #### [facility] [address] [place] [address] Dr. Dylan Santana Basophils/100 WBC (Bld) 0.6 % Normal 0.2-2.0 [facility] Comment on above: Performed By: #### C BC #### [facility] [address] [place] [address] Dr. Dylan Santana EO # 0.3 103/ul Normal 0.0-0.7 [facility] Comment on above: Performed By: #### C BC #### [facility] [address] [place] [address] Dr. Dylan Santana Eosinophils/100 WBC (Bld) 4.9 % Normal 0.9-7.0 [facility] Comment on above: Performed By: #### C BC #### [facility] [address] [place] [address] Dr. Dylan Santana Erythrocyte distribution width (RBC) [Ratio] 12.2 % Normal 11.0-15.0 [facility] Comment on above: Performed By: #### C BC #### [facility] [address] [place] [address] Dr. Dylan Santana Hematocrit (Bld) [Volume fraction] 36.2 % Normal 36.0-48.0 [facility] Comment on above: Performed By: #### C BC #### [facility] [facility] [address] [place] [address] Dr. Dylan Santana Hemoglobin (Bld) [Mass/Vol] 11.9 g/dL Critically low 12.0-16.0 [facility] Comment on above: Performed By: #### C BC #### [facility] [address] [place] [address] Dr. Dylan Santana IG # 0.02 10e3/ul Normal 0.00-0.03 [facility] Comment on above: Performed By: #### C BC #### [facility] [address] [place] [address] Dr. Dylan Santana IG % 0.4 % Normal 0.0-0.5 [facility] Comment on above: Performed By: #### C BC #### [facility] [address] [place] [address] Dr. Dylan Santana LYMPH # 1.8 103/ul Normal 1.2-3.8 [facility] Comment on above: Performed By: #### C BC #### [facility] [address] [place] [address] Dr. Dylan Santana Lymphocytes/100 WBC (Bld) 34.8 % Normal 20.5-60.0 [facility] Comment on above: Performed By: #### C BC #### [facility] [address] [place] [address] Dr. Dylan Santana MANUAL DIFF REQ NO Normal [facility] Comment on above: Performed By: #### C BC #### [facility] [address] [place] [address] Dr. Dylan Santana MCH (RBC) [Entitic mass] 30.2 pg Normal 26.7-34.0 [facility] Comment on above: Performed By: #### C BC #### [facility] [address] [address] [address] Dylan Santana MCHC (RBC) [Mass/Vol] 32.9 g/dL Normal 29.9-35.2 [facility] Comment on above: Performed By: #### C BC #### [facility] [address] [address] [address] Dylan Santana MCV (RBC) [Entitic vol] 91.9 fL Normal 81.0-99.0 [facility] Comment on above: Performed By: #### C BC #### [facility] [address] [address] [address] Dylan Santana MONO # 0.6 103/ul Normal 0.3-0.8 [facility] Comment on above: Performed By: #### C BC #### [facility] [address] [place] [address] Dr. Dylan aSntana Monocytes/100 WBC (Bld) 12.5 % Critically high 1.7-12.0 [facility] Comment on above: Performed By: #### C BC #### [facility] [address] [place] [address] Dr. Dylan Santana NEUT # 2.4 103/ul Normal 1.4-6.5 [facility] Comment on above: Performed By: #### C BC #### [facility] [address] [address] [address] Dylan Santana Neutrophils/100 WBC (Bld) 46.8 % Normal 43.0-75.0 [facility] Comment on above: Performed By: #### C BC #### [facility] [address] [address] [address] Dylan Santana Platelet mean volume (Bld) [Entitic vol] 10.1 fL Normal 9.5-13.5 [facility] Comment on above: Performed By: #### C BC #### [facility] [address] [address] [address] Dylan Santana PLT 159 103/ul Normal 150-450 [facility] Comment on above: Performed By: #### C BC #### [facility] [address] [address] [address] Dylan Santana RBC 3.94 106/ul Critically low 4.20-5.40 [facility] Comment on above: Performed By: #### C BC #### [facility] [address] [place] [address] Dr. Dylan Santana WBC 5.1 103/ul Normal 4.0-11.0 [facility] Comment on above: Performed By: #### C BC #### [facility] [address] [place] [address] Dr. Dylan Santana BASO # 0.0 103/ul Normal 0.0-0.1 [facility] Comment on above: Performed By: #### C BC #### [facility] [address] [place] [address] Dr. Dylan Santana Basophils/100 WBC (Bld) 0.6 % Normal 0.2-2.0 [facility] Comment on above: Performed By: #### C BC #### [facility] [address] [place] [address] Dr. Dylan Santana EO # 0.3 103/ul Normal 0.0-0.7 [facility] Comment on above: Performed By: #### C BC #### [facility] [address] [place] [address] Dr. Dylan Santana Eosinophils/100 WBC (Bld) 5.0 % Normal 0.9-7.0 [facility] Comment on above: Performed By: #### C BC #### [facility] [address] [place] [address] Dr. Dylan Santana Erythrocyte distribution width (RBC) [Ratio] 12.1 % Normal 11.0-15.0 [facility] Comment on above: Performed By: #### C BC #### [facility] [address] [place] [address] Dr. Dylan Santana Hematocrit (Bld) [Volume fraction] 39.3 % Normal 36.0-48.0 [facility] Comment on above: Performed By: #### C BC #### [facility] [address] [place] [address] Dr. Dylan Santana Hemoglobin (Bld) [Mass/Vol] 12.9 g/dL Normal 12.0-16.0 [facility] Comment on above: Performed By: #### C BC #### [facility] [address] [place] [address] Dr. Dylan Santana IG # 0.02 10e3/ul Normal 0.00-0.03 [facility] Comment on above: Performed By: #### C BC #### [facility] [address] [place] [address] Dr. Dylan Santana IG % 0.4 % Normal 0.0-0.5 [facility] Comment on above: Performed By: #### C BC #### [facility] [address] [place] [address] Dr. Dylan Santana LYMPH # 1.4 103/ul Normal 1.2-3.8 [facility] Comment on above: Performed By: #### C BC #### [facility] [address] [place] [address] Dr. Dylan Santana Lymphocytes/100 WBC (Bld) 26.9 % Normal 20.5-60.0 [facility] Comment on above: Performed By: #### C BC #### [facility] [address] [place] [address] Dr. Dylan Santana MANUAL DIFF REQ NO Normal [facility] Comment on above: Performed By: #### C BC #### [facility] [address] [place] [address] Dr. Dylan Santana MCH (RBC) [Entitic mass] 30.2 pg Normal 26.7-34.0 [facility] Comment on above: Performed By: #### C BC #### [facility] [address] [place] [address] Dr. Dylan Santana MCHC (RBC) [Mass/Vol] 32.8 g/dL Normal 29.9-35.2 [facility] Comment on above: Performed By: #### C BC #### [facility] [address] [place] [address] Dr. Dylan Santana MCV (RBC) [Entitic vol] 92.0 fL Normal 81.0-99.0 [facility] Comment on above: Performed By: #### C BC #### [facility] [address] [place] [address] Dr. Dylan Santana MONO # 0.5 103/ul Normal 0.3-0.8 [facility] Comment on above: Performed By: #### C BC #### [facility] [address] [place] [address] Dr. Dylan Santana Monocytes/100 WBC (Bld) 10.1 % Normal 1.7-12.0 [facility] Comment on above: Performed By: #### C BC #### [facility] [address] [place] [address] Dr. Dylan Santana NEUT # 3.0 103/ul Normal 1.4-6.5 [facility] Comment on above: Performed By: #### C BC #### [facility] [address] [place] [address] Dr. Dylan Santana Neutrophils/100 WBC (Bld) 57.0 % Normal 43.0-75.0 [facility] Comment on above: Performed By: #### C BC #### [facility] [address] [place] [address] Dr. Dylan Santana Platelet mean volume (Bld) [Entitic vol] 10.3 fL Normal 9.5-13.5 [facility] Comment on above: Performed By: #### C BC #### [facility] [address] [place] [address] Dr. Dylan Santana PLT 182 103/ul Normal 150-450 [facility] Comment on above: Performed By: #### C BC #### [facility] [address] [place] [address] Dr. Dylan Santana RBC 4.27 106/ul Normal 4.20-5.40 [facility] Comment on above: Performed By: #### C BC #### [facility] [address] [place] [address] Dr. Dylan Santana WBC 5.2 103/ul Normal 4.0-11.0 [facility] Comment on above: Performed By: #### C #### [facility] [address] [address] [address] HEAD WO CONon [...] YONIS PACHECO Date: 2022-06-10 04:35 Normal [facility] Covid-19 PCR ([facility]on 05-24 SARS-CoV-2 (COVID-19) RNA LUIS+probe Ql (Unsp spec) Not detected Normal NOT DETECTED [facility] Comment on above: Result Comment: When diagnostic [...] for this test is supported by the [place] of [employer] and Human Service's declaration that [...] By: #### L IPID, TSH, CMP #### [facility] [address] [place] [address] Dr. Dylan Santana POINT OF CARE GLUCOSEon 05-24 Glucose [Mass/Vol] 169 mg/dL Critically high 74-106 [facility] Comment on above: Performed By: #### C BC #### [facility] [address] [place] [address] Dr. Dylan Santana PROF 14(COMP METB)on 022 Albumin [Mass/Vol] 3.5 g/dL Normal 3.4-5.0 [facility] Comment on above: Performed By: #### C RAUL, HSTROPN #### [facility] [address] [place] [address] Dr. Dylan Santana Albumin/Globulin [Mass ratio] 0.9 {ratio} Normal [facility] Comment on above: Performed By: #### C MP, HSTROPN #### [facility] [address] [place] [address] Dr. Dylan Santana ALP [Catalytic activity/Vol] 197 U/L Critically high 46-116 [facility] Comment on above: Performed By: #### C MP, HSTROPN #### [facility] [address] [place] [address] Dr. Dylan Santana ALT [Catalytic activity/Vol] 89 U/L Critically high 14-59 [facility] Comment on above: Performed By: #### C MP, HSTROPN #### [facility] [address] [place] [address] Dr. Dylan Santana Anion gap [Moles/Vol] 10.1 mmol/L Normal [facility] Comment on above: Performed By: #### C RAUL, HSTROPN #### [facility] [address] [place] [address] Dr. Dylan Santana AST [Catalytic activity/Vol] 50 U/L Critically high 15-37 [facility] Comment on above: Performed By: #### C RAUL, HSTROPN #### [facility] [address] [place] [address] Dr. Dylan Santana Bilirubin [Mass/Vol] 0.4 mg/dL Normal 0.2-1.0 [facility] Comment on above: Performed By: #### C RAUL, HSTROPN #### [facility] [address] [place] [address] Dr. Dylan Santana Calcium [Mass/Vol] 9.2 mg/dL Normal 8.5-10.1 [facility] Comment on above: Performed By: #### C RAUL, HSTROPN #### [facility] [address] [place] [address] Dr. Dylan Santana Chloride [Moles/Vol] 101 mmol/L Normal 98-107 [facility] Comment on above: Performed By: #### C RAUL, HSTROPN #### [facility] [address] [place] [address] Dr. Dylan Santana CO2 [Moles/Vol] 28.1 mmol/L Normal 21.0-32.0 [facility] Comment on above: Performed By: #### C RAUL, HSTROPN #### [facility] [address] [place] [address] Dr. Dylan Santana Creatinine [Mass/Vol] 1.29 mg/dL Critically high 0.55-1.02 [facility] Comment on above: Performed By: #### C RAUL, HSTROPN #### [facility] [address] [place] [address] Dr. Dylan Santana EGFR-AF MAURITANIAN 49 mL/min/1.73m2 Critically low >=60 [facility] Comment on above: Performed By: #### C RAUL, HSTROPN #### [facility] [address] [address] [address] Dylan Santana EGFR-NON AF MAURITANIAN 41 mL/min/1.73m2 Critically low >=60 [facility] Comment on above: Performed By: #### C MP, HSTROPN #### [facility] [address] [address] [address] Dylan Santana Globulin (S) [Mass/Vol] 3.9 g/dL Normal [facility] Comment on above: Performed By: #### C MP, HSTROPN #### [facility] [address] [address] [address] Dylan Santana Glucose [Mass/Vol] 231 mg/dL Critically high 74-106 [facility] Comment on above: Performed By: #### C MP, HSTROPN #### [facility] [address] [place] [address] Dr. Dylan Santana Potassium [Moles/Vol] 4.2 mmol/L Normal 3.5-5.1 [facility] Comment on above: Performed By: #### C MP, HSTROPN #### [facility] [address] [address] [address] Dylan Santana Protein [Mass/Vol] 7.4 g/dL Normal 6.4-8.2 [facility] Comment on above: Performed By: #### C MP, HSTROPN #### [facility] [address] [address] [address] Dylan Santana Sodium [Moles/Vol] 135 mmol/L Critically low 136-145 [facility] Comment on above: Performed By: #### C MP, HSTROPN #### [facility] [address] [address] [address] Dylan Santana Urea nitrogen [Mass/Vol] 21.0 mg/dL Critically high 7.0-18.0 [facility] Comment on above: Performed By: #### C MP, HSTROPN #### [facility] [address] [address] [address] Dylan Santana Urea nitrogen/Creatinine [Mass ratio] 16.3 mg/mg Normal [facility] Comment on above: Performed By: #### C MP, HSTROPN #### [facility] [address] [address] [address] Dylan Santana PROF CHEM 8 (BAS METB)on Anion gap [Moles/Vol] 9.2 mmol/L Normal [facility] Comment on above: Performed By: #### L IPID, TSH, CMP #### [facility] [address] [address] [address] Dylan Santana Calcium [Mass/Vol] 8.9 mg/dL Normal 8.5-10.1 [facility] Comment on above: Performed By: #### L IPID, TSH, CMP #### [facility] [address] [place] [address] Dr. Dylan Santana Chloride [Moles/Vol] 104 mmol/L Normal 98-107 [facility] Comment on above: Performed By: #### L IPID, TSH, CMP #### [facility] [address] [place] [address] Dr. Dylan Santana CO2 [Moles/Vol] 27.8 mmol/L Normal 21.0-32.0 [facility] Comment on above: Performed By: #### L IPID, TSH, CMP #### [facility] [address] [place] [address] Dr. Dylan Santana Creatinine [Mass/Vol] 1.14 mg/dL Critically high 0.55-1.02 [facility] Comment on above: Performed By: #### L IPID, TSH, CMP #### [facility] [address] [place] [address] Dr. Dylan Santana EGFR-AF MAURITANIAN 57 mL/min/1.73m2 Critically low >=60 [facility] Comment on above: Performed By: #### L IPID, TSH, CMP #### [facility] [address] [place] [address] Dr. Dylan Santana EGFR-NON AF MAURITANIAN 47 mL/min/1.73m2 Critically low >=60 [facility] Comment on above: Performed By: #### L IPID, TSH, CMP #### [facility] [address] [place] [address] Dr. Dylan Santana Glucose [Mass/Vol] 176 mg/dL Critically high 74-106 [facility] Comment on above: Performed By: #### L IPID, TSH, CMP #### [facility] [address] [place] [address] Dr. Dylan Santana Potassium [Moles/Vol] 4.0 mmol/L Normal 3.5-5.1 [facility] Comment on above: Performed By: #### L IPID, TSH, CMP #### [facility] [address] [place] [address] Dr. Dylan Santana Sodium [Moles/Vol] 137 mmol/L Normal 136-145 [facility] Comment on above: Performed By: #### L IPID, TSH, CMP #### [facility] [address] [place] [address] Dr. Dylan Santana Urea nitrogen [Mass/Vol] 21.0 mg/dL Critically high 7.0-18.0 [facility] Comment on above: Performed By: #### L IPID, TSH, CMP #### [facility] [address] [place] [address] Dr. Dylan Santana Urea nitrogen/Creatinine [Mass ratio] 18.4 mg/mg Normal [facility] Comment on above: Performed By: #### L IPID, TSH, CMP #### [facility] [address] [place] [address] Dr. Dylan Santana RESPIRATORY PANEL PLUSon Adenovirus Not detected Normal NOT DETECTED [facility] Comment on above: Performed By: #### C BC #### [facility] [address] [place] [address] Dr. Dylan Pastor. Parapertusis Not detected Normal NOT DETECTED [facility] Comment on above: Performed By: #### C BC #### [facility] [address] [place] [address] Dr. Dylan Pastor. Pertussis Not detected Normal NOT DETECTED [facility] Comment on above: Performed By: #### C BC #### [facility] [address] [place] [address] Dr. Dylan Santana Chlamydia Pneumoniae Not detected Normal NOT DETECTED [facility] Comment on above: Performed By: #### C BC #### [facility] [address] [place] [address] Dr. Dylan Santana Coronavirus 229E Not detected Normal NOT DETECTED [facility] Comment on above: Performed By: #### C BC #### [facility] [address] [place] [address] Dr. Dylan Santana Coronavirus HKU1 Not detected Normal NOT DETECTED [facility] Comment on above: Performed By: #### C BC #### [facility] [address] [place] [address] Dr. Dylan Santana Coronavirus NL63 Not detected Normal NOT DETECTED [facility] Comment on above: Performed By: #### C BC #### [facility] [address] [place] [address] Dr. Dylan Santana Coronavirus OC43 Not detected Normal NOT DETECTED [facility] Comment on above: Performed By: #### C BC #### [facility] [address] [place] [address] Dr. Dylan Santana Influenza A H1 2009 Not detected Normal NOT DETECTED [facility] Comment on above: Performed By: #### C BC #### [facility] [address] [place] [address] Dr. Dylan Santana Influenza A H3 Not detected Normal NOT DETECTED The [facility] Comment on above: Performed By: #### C BC #### [facility] [address] [place] [address] Dr. Dylan Santana Influenza B Not detected Normal NOT DETECTED [facility] Comment on above: Performed By: #### C BC #### [facility] [address] [place] [address] Dr. Dylan Santana Metapneumovirus Not detected Normal NOT DETECTED [facility] Comment on above: Performed By: #### C BC #### [facility] [address] [place] [address] Dr. Dylan Santana Mycoplas. Pneumoniae Not detected Normal NOT DETECTED [facility] Comment on above: Performed By: #### C BC #### [facility] [address] [place] [address] Dr. Dylan Santana Parainfluenza 1 Not detected Normal NOT DETECTED [facility] Comment on above: Performed By: #### C BC #### [facility] [address] [place] [address] Dr. Dylan Santana Parainfluenza 2 Not detected Normal NOT DETECTED [facility] Comment on above: Performed By: #### C BC #### [facility] [address] [place] [address] Dr. Dylan Santana Parainfluenza 3 Not detected Normal NOT DETECTED [facility] Comment on above: Performed By: #### C BC #### [facility] [address] [place] [address] Dr. Dylan Santana Parainfluenza 4 Not detected Normal NOT DETECTED [facility] Comment on above: Performed By: #### C BC #### [facility] [address] [place] [address] Dr. Dylan Santana Rhino/Enterovirus Not detected Normal NOT DETECTED [facility] Comment on above: Performed By: #### C BC #### [facility] [address] [place] [address] Dr. Dylan Santana RP2 Header 1 RESPIRATORY PANEL: VIRUSES Normal [facility] Comment on above: Performed By: #### C BC #### [facility] [address] [place] [address] Dr. Dylan Santana RP2 Header 2 RESPIRATORY PANEL: BACTERIA Normal [facility] Comment on above: Performed By: #### C BC #### [facility] [address] [place] [address] Dr. Dylan Santana RSV Detected Critically abnormal NOT DETECTED [facility] Comment on above: Performed By: #### C BC #### [facility] [address] [place] [address] Dr. Dylan Santana SARS-CoV-2 (COVID-19) RNA LUIS+probe Ql (Unsp spec) Not detected Normal NOT DETECTED [facility] Comment on above: Performed By: #### C BC #### [facility] [address] [place], [place] [address] Dr. Dylan Santana TROPONIN, HIGH SENSITIVITYon 06-10-2022 HSTROP 18.5 pg/mL Normal 4.0-51.3 [facility] Comment on above: Result Comment: CUT- OFF POINTS HAVE BEEN ESTABLISHED BASED ON THE FOURTH UNIVERSAL DEFINITIONS OF MYOCARDIAL INFARCTION. THE UPPER REFERENCE LIMIT (URL) OF TROPONIN, DEFINED THE 99TH PERCENTILE OF cTnI DISTRIBUTION IN A REFERENCE POPULATION, HAS BEEN CONFIRMED THE DECISION THRESHOLD FOR CO DIAGNOSIS. Performed By: #### L IPID, TSH, CMP #### [facility] [address] [id number] Dylan Santana HSTROP 18.8 pg/mL Normal 4.0-51.3 [facility] Comment on above: Result Comment: CUT- OFF POINTS HAVE BEEN ESTABLISHED BASED ON THE FOURTH UNIVERSAL DEFINITIONS OF MYOCARDIAL INFARCTION. THE UPPER REFERENCE LIMIT (URL) OF TROPONIN, DEFINED THE 99TH PERCENTILE OF cTnI DISTRIBUTION IN A REFERENCE POPULATION, HAS BEEN CONFIRMED THE DECISION THRESHOLD FOR CO DIAGNOSIS. Performed By: #### C MP, HSTROPN #### [facility] [address] [id number] Dylan Santana XR CHEST 1 Von [...] YONIS PACHECO Date: 2022-06-10 02:13 Normal [facility] ECHOCARDIO M/2D COMPLETEon 1 07-08-2021 ECHOCARDIO M/2D COMPLETE Patient: LIBRA NOONAN Exam Date: 05/08/2022 : 1950 Gender:F Ordering : [facility] Admission #: [id number] Family : Order #: [id number] CLICK HERE TO VIEW EXAM ECHOCARDIOGRAM REPORT [...] Capellan M.D. on 05/09/2022 at 20:11 Normal [facility] NM STRESS/REST MULTIon 03-08 IN STRESS/REST MULTI Patient: LIBRA NOONAN Exam Date: 03/08/2022 : 1950 Gender:F Ordering : DR GARRISON BELL M.D. Admission #: [id number] Family : Order #: [id number] CLICK HERE TO VIEW EXAM RADIOLOGY REPORT [...] DEFECT: LOCATION: Basal anterior. Mid-anterior. Apical anterior. [place]. SIZE: Medium (3-4 segments). SEVERITY: Moderate. TYPE: [...] MD on 03/09/2022 at 11:54 Normal [facility] CBC AUTO DIFFon 01-24-2022 BASO # 0.0 103/ul Normal 0.0-0.1 [facility] Comment on above: Performed By: #### C BC #### [facility] [address] [place] [address] Dr. Dylan Santana Basophils/100 WBC (Bld) 0.5 % Normal 0.2-2.0 [facility] Comment on above: Performed By: #### C BC #### [facility] [address] [place] [address] Dr. Dylan Santana EO # 0.2 103/ul Normal 0.0-0.7 [facility] Comment on above: Performed By: #### C BC #### [facility] [address] [place] [address] Dr. Dylan Santana Eosinophils/100 WBC (Bld) 2.8 % Normal 0.9-7.0 [facility] Comment on above: Performed By: #### C BC #### [facility] [address] [place] [address] Dr. Dylan Santana Erythrocyte distribution width (RBC) [Ratio] 13.0 % Normal 11.0-15.0 [facility] Comment on above: Performed By: #### C BC #### [facility] [address] [place] [address] Dr. Dylan Santana Hematocrit (Bld) [Volume fraction] 40.8 % Normal 36.0-48.0 [facility] Comment on above: Performed By: #### C BC #### [facility] [address] [place] [address] Dr. Dylan Santana Hemoglobin (Bld) [Mass/Vol] 13.0 g/dL Normal 12.0-16.0 [facility] Comment on above: Performed By: #### C BC #### [facility] [address] [place] [address] Dr. Dylan Santana IG # 0.04 10e3/ul Critically high 0.00-0.03 [facility] Comment on above: Performed By: #### C BC #### [facility] [address] [place] [address] Dr. Dylan Santana IG % 0.5 % Normal 0.0-0.5 [facility] Comment on above: Performed By: #### C BC #### [facility] [address] [place] [address] Dr. Dylan Santana LYMPH # 2.7 103/ul Normal 1.2-3.8 [facility] Comment on above: Performed By: #### C BC #### [facility] [address] [place] [address] Dr. Dylan Santana Lymphocytes/100 WBC (Bld) 34.3 % Normal 20.5-60.0 [facility] Comment on above: Performed By: #### C BC #### [facility] [address] [place] [address] Dr. Dylan Santana MANUAL DIFF REQ NO Normal [facility] Comment on above: Performed By: #### C BC #### [facility] [address] [place] [address] Dr. Dylan Santana MCH (RBC) [Entitic mass] 30.0 pg Normal 26.7-34.0 [facility] Comment on above: Performed By: #### C BC #### [facility] [address] [address] [address] Dylan Santana MCHC (RBC) [Mass/Vol] 31.9 g/dL Normal 29.9-35.2 [facility] Comment on above: Performed By: #### C BC #### [facility] [address] [place] [address] Dr. Dylan Santana MCV (RBC) [Entitic vol] 94.0 fL Normal 81.0-99.0 [facility] Comment on above: Performed By: #### C BC #### [facility] [address] [place] [address] Dr. Dylan Santana MONO # 0.4 103/ul Normal 0.3-0.8 [facility] Comment on above: Performed By: #### C BC #### [facility] [address] [place] [address] Dr. Dylan Santana Monocytes/100 WBC (Bld) 5.1 % Normal 1.7-12.0 [facility] Comment on above: Performed By: #### C BC #### [facility] [address] [place] [address] Dr. Dlyan Santana NEUT # 4.4 103/ul Normal 1.4-6.5 [facility] Comment on above: Performed By: #### C BC #### [facility] [address] [place] [address] Dr. Dylan Santana Neutrophils/100 WBC (Bld) 56.8 % Normal 43.0-75.0 [facility] Comment on above: Performed By: #### C BC #### [facility] [address] [place] [address] Dr. Dylan Santana Platelet mean volume (Bld) [Entitic vol] 10.7 fL Normal 9.5-13.5 [facility] Comment on above: Performed By: #### C BC #### [facility] [address] [place] [address] Dr. Dylan Santana PLT 212 103/ul Normal 150-450 [facility] Comment on above: Performed By: #### C BC #### [facility] [address] [place] [address] Dr. Dylan Santana RBC 4.34 106/ul Normal 4.20-5.40 [facility] Comment on above: Performed By: #### C BC #### [facility] [address] [place] [address] Dr. Dylan Santana WBC 7.8 103/ul Normal 4.0-11.0 [facility] Comment on above: Performed By: #### C BC #### [facility] [address] [place] [address] Dr. Dylan Santana FREE T4on 01-24-2022 Free T4 [Mass/Vol] 1.02 ng/dL Normal 0.76-1.46 [facility] Comment on above: Performed By: #### F T4 #### [facility] [address] [place] [address] Dr. Dylan Santana GLYCOHEMOGLOBIN A1Con 2021 ADA RECOMMENDATION SEE BELOW Normal [facility] Comment on above: Result Comment: ADA RECOMMENDED LIMIT 4.0 - 6.0 ADA THERAPEUTIC TARGET < 7.0 ACTION SUGGESTED > 7.0 Performed By: #### C BC #### [facility] [address] [place] [address] Dr. Dylan Santana Glucose [Mass/Vol] 189 mg/dL Normal [facility] Comment on above: Performed By: #### C BC #### [facility] [address] [place] [address] Dr. Dylan Santana HbA1c (Bld) [Mass fraction] 8.2 % Critically high 4.5-6.2 [facility] Comment on above: Performed By: #### C BC #### [facility] [address] [place] [address] Dr. Dylan Santana LIPID PROFILEon 01-24-2022 CHOL-HDL RATIO NORM SEE BELOW Normal [facility] Comment on above: Result Comment: 3.3 - 4.4 LOW RISK 4.4 - 7.1 AVERAGE RISK 7.1 - 11.0 MODERATE RISK >11.0 HIGH RISK Performed By: #### L IPID, TSH, CMP #### [facility] [address] [address] [address] Dylan Santana Cholesterol [Mass/Vol] 235 mg/dL Critically high <=200 [facility] Comment on above: Performed By: #### L IPID, TSH, CMP #### [facility] [address] [address] [address] Dylan Santana Cholesterol in HDL [Mass/Vol] 64 mg/dL Critically high 40-60 [facility] Comment on above: Performed By: #### L IPID, TSH, CMP #### [facility] [address] [address] [address] Dylan Santana Cholesterol in LDL [Mass/Vol] 139.8 mg/dL Normal [facility] Comment on above: Performed By: #### L IPID, TSH, CMP #### [facility] [address] [address] [address] Dylan Santana Cholesterol.total/C holesterol in HDL [Mass ratio] 3.7 {ratio} Normal [facility] Comment on above: Performed By: #### L IPID, TSH, CMP #### [facility] [address] [address] [address] Dylan Santana HDL NORMAL > or = 60 mg/dl - LO W CARDIOVASCULAR RISK <40 mg/dl - HIGH CARDIOVASCULAR RISK Normal [facility] Comment on above: Performed By: #### L IPID, TSH, CMP #### [facility] [address] [address] [address] Dylan Santana LDL CALC NORMAL SEE BELOW Normal [facility] Comment on above: Result Comment: <100 mg/dl OPTIMAL 100 - 129 mg/dl NEAR OR ABOVE OPTIMAL 130 - 159 mg/dl BORDERLINE HIGH 160 - 189 mg/dl HIGH >190 mg/dl VERY HIGH Performed By: #### L IPID, TSH, CMP #### [facility] [address] [address] [address] Dylan Santana Triglyceride [Mass/Vol] 156 mg/dL Critically high <=150 [facility] Comment on above: Performed By: #### L IPID, TSH, CMP #### [facility] [address] [address] [address] Dylan Santana VLDL CALC 31.2 mg/dL Normal [facility] Comment on above: Performed By: #### L IPID, TSH, CMP #### [facility] [address] [address] [address] Dylan Santana PROF 14(COMP METB)on 022 Albumin [Mass/Vol] 3.3 g/dL Critically low 3.4-5.0 [facility] Comment on above: Performed By: #### L IPID, TSH, CMP #### [facility] [address] [address] [address] Dylan Santana Albumin/Globulin [Mass ratio] 0.9 {ratio} Normal [facility] Comment on above: Performed By: #### L IPID, TSH, CMP #### [facility] [address] [place] [address] Dr. Dylan Santana ALP [Catalytic activity/Vol] 109 U/L Normal 46-116 [facility] Comment on above: Performed By: #### L IPID, TSH, CMP #### [facility] [address] [place] [address] Dr. Dylan Santana ALT [Catalytic activity/Vol] 25 U/L Normal 14-59 [facility] Comment on above: Performed By: #### L IPID, TSH, CMP #### [facility] [address] [place] [address] Dr. Dylan Santana Anion gap [Moles/Vol] 14.7 mmol/L Normal [facility] Comment on above: Performed By: #### L IPID, TSH, CMP #### [facility] [address] [place] [address] Dr. Dylan Santana AST [Catalytic activity/Vol] 12 U/L Critically low 15-37 [facility] Comment on above: Performed By: #### L IPID, TSH, CMP #### [facility] [address] [place] [address] Dr. Dylan Santana Bilirubin [Mass/Vol] 0.6 mg/dL Normal 0.2-1.0 [facility] Comment on above: Performed By: #### L IPID, TSH, CMP #### [facility] [address] [address] [address] Dylan Santana Calcium [Mass/Vol] 8.8 mg/dL Normal 8.5-10.1 [facility] Comment on above: Performed By: #### L IPID, TSH, CMP #### [facility] [address] [place] [address] Dr. Dylan Santana Chloride [Moles/Vol] 102 mmol/L Normal 98-107 [facility] Comment on above: Performed By: #### L IPID, TSH, CMP #### [facility] [address] [place] [address] Dr. Dylan Santana CO2 [Moles/Vol] 27.5 mmol/L Normal 21.0-32.0 [facility] Comment on above: Performed By: #### L IPID, TSH, CMP #### [facility] [address] [place] [address] Dr. Dylan Santana Creatinine [Mass/Vol] 1.14 mg/dL Critically high 0.55-1.02 [facility] Comment on above: Performed By: #### L IPID, TSH, CMP #### [facility] [address] [place] [address] Dr. Dylan Santana EGFR-AF MAURITANIAN 57 mL/min/1.73m2 Critically low >=60 [facility] Comment on above: Performed By: #### L IPID, TSH, CMP #### [facility] [address] [place] [address] Dr. Dylan Santana EGFR-NON AF MAURITANIAN 47 mL/min/1.73m2 Critically low >=60 [facility] Comment on above: Performed By: #### L IPID, TSH, CMP #### [facility] [address] [place] [address] Dr. Dylan Santana Globulin (S) [Mass/Vol] 3.7 g/dL Normal [facility] Comment on above: Performed By: #### L IPID, TSH, CMP #### [facility] [address] [place] [address] Dr. Dylan Santana Glucose [Mass/Vol] 249 mg/dL Critically high 74-106 [facility] Comment on above: Performed By: #### L IPID, TSH, CMP #### [facility] [address] [place] [address] Dr. Dylan Santana Potassium [Moles/Vol] 4.2 mmol/L Normal 3.5-5.1 [facility] Comment on above: Performed By: #### L IPID, TSH, CMP #### [facility] [address] [place] [address] Dr. Dylan Santana Protein [Mass/Vol] 7.0 g/dL Normal 6.4-8.2 [facility] Comment on above: Performed By: #### L IPID, TSH, CMP #### [facility] [address] [place] [address] Dr. Dylan Santana Sodium [Moles/Vol] 140 mmol/L Normal 136-145 [facility] Comment on above: Performed By: #### L IPID, TSH, CMP #### [facility] [address] [place] [address] Dr. Dylan Santana Urea nitrogen [Mass/Vol] 20.0 mg/dL Critically high 7.0-18.0 [facility] Comment on above: Performed By: #### L IPID, TSH, CMP #### [facility] [address] [place] [address] Dr. Dylan Santana Urea nitrogen/Creatinine [Mass ratio] 17.5 mg/mg Normal [facility] Comment on above: Performed By: #### L IPID, TSH, CMP #### [facility] [address] [place] [address] Dr. Dylan Santana TSHon 01-24-2022 TSH 3.673 uIU/mL Normal 0.358-3.740 [facility] Comment on above: Performed By: #### L IPID, TSH, CMP #### [facility] [address] [place] [address] Dr. Dylan Santana COVID Quick Testingon 2021 Result Negative [facility] 09-22-2021 Lab Reports [id number] CD:127 [facility] Vital Signs Date Time Vital Sign Value Performing Clinician Facility 07-08-2024 11:33-0500 Body height 157.48 cm [facility] 07-08-2024 11:33-0500 Body mass index (BMI) [Ratio] 58 kg/m2 [facility] 07-08-2024 11:33-0500 Body weight 143.9 kg [facility] 07-08-2024 11:33-0500 Diastolic blood pressure 83 mm[Hg] [facility] 07-08-2024 11:33-0500 Heart rate 84 /min [facility] 07-08-2024 11:33-0500 Respiratory rate 16 /min [facility] 07-08-2024 11:33-0500 Systolic blood pressure 136 mm[Hg] [facility] 04-06-2024 11:38-0400 Body height 157.48 cm MD Garrison Bell Work Phone: [facility] 04-06-2024 11:38-0400 Body mass index (BMI) [Ratio] 57.8 kg/m2 MD Garrison Bell Work Phone: [facility] 04-06-2024 11:38-0400 Body weight 143.44 kg MD Garrison Bell Work Phone: [facility] 04-06-2024 11:38-0400 Diastolic blood pressure 82 mm[Hg] MD Garrison Bell Work Phone: [facility] 04-06-2024 11:38-0400 Heart rate 77 /min MD Garrison Bell Work Phone: [facility] 04-06-2024 11:38-0400 Respiratory rate 18 /min MD Garrison Bell Work Phone: [facility] 04-06-2024 11:38-0400 SaO2% (BldA) [Mass fraction] 98 % MD Garrison Bell Work Phone: [facility] 04-06-2024 11:38-0400 Systolic blood pressure 128 mm[Hg] MD Garrison Bell Work Phone: [facility] 03-24-2024 10:26-0400 Diastolic blood pressure 81 mm[Hg] MD Garrison Bell Work Phone: [facility] 03-24-2024 10:26-0400 Heart rate 72 /min MD Garrison Bell Work Phone: [facility] 03-24-2024 10:26-0400 Respiratory rate 16 /min MD Garrison Bell Work Phone: [facility] 03-24-2024 10:26-0400 SaO2% (BldA) [Mass fraction] 96 % MD Garrison Bell Work Phone: [facility] 03-24-2024 10:26-0400 Systolic blood pressure 165 mm[Hg] MD Garrison Bell Work Phone: [facility] 03-24-2024 09:45-0400 Inhaled oxygen flow rate 3 L/min MD aGrrison Bell Work Phone: [facility] 03-24-2024 08:54-0400 Body height 157.48 cm MD Garrison Bell Work Phone: [facility] 03-24-2024 08:54-0400 Body weight 144.69 kg MD Garrison Bell Work Phone: [facility] 03-23-2024 08:24-0400 Body height 157.48 cm [facility] 03-23-2024 08:24-0400 Body mass index (BMI) [Ratio] 59.1 kg/m2 [facility] 03-23-2024 08:24-0400 Body temperature 98.5 [degF] [facility] 03-23-2024 08:24-0400 Body weight 146.68 kg [facility] 03-23-2024 08:24-0400 Diastolic blood pressure 85 mm[Hg] [facility] 03-23-2024 08:24-0400 Heart rate 79 /min [facility] 03-23-2024 08:24-0400 Respiratory rate 20 /min [facility] 03-23-2024 08:24-0400 SaO2% (BldA) [Mass fraction] 98 % [facility] 03-23-2024 08:24-0400 Systolic blood pressure 157 mm[Hg] [facility] 01-15-2024 10:44-0400 Body height 157.48 cm MD Garrison Bell Work Phone: [facility] 01-15-2024 10:44-0400 Body mass index (BMI) [Ratio] 56.8 kg/m2 MD Garrison Bell Work Phone: [facility] 01-15-2024 10:44-0400 Body weight 141 kg MD Garrison Bell Work Phone: [facility] 12-04-2023 11:38-0400 Body height 157.48 cm MD Garrison Bell Work Phone: [facility] 12-04-2023 11:38-0400 Body mass index (BMI) [Ratio] 57 kg/m2 MD Garrison Bell Work Phone: [facility] 12-04-2023 11:38-0400 Body weight 141.52 kg MD Garrison Bell Work Phone: [facility] 12-04-2023 11:38-0400 Diastolic blood pressure 80 mm[Hg] MD Garrison Bell Work Phone: [facility] 12-04-2023 11:38-0400 Heart rate 80 /min MD Garrison Bell Work Phone: [facility] 12-04-2023 11:38-0400 Systolic blood pressure 125 mm[Hg] MD Garrison Bell Work Phone: [facility] 10-15-2023 10:57-0400 Diastolic blood pressure 82 mm[Hg] MD Garrison Bell Work Phone: [facility] 10-15-2023 10:57-0400 Heart rate 81 /min MD Garrison Bell Work Phone: [facility] 10-15-2023 10:57-0400 Respiratory rate 16 /min MD Garrison Bell Work Phone: [facility] 10-15-2023 10:57-0400 SaO2% (BldA) [Mass fraction] 97 % MD Garrison Bell Work Phone: [facility] 10-15-2023 10:57-0400 Systolic blood pressure 147 mm[Hg] MD Garrison Bell Work Phone: [facility] 10-15-2023 10:16-0400 Inhaled oxygen flow rate 3 L/min MD Garrison Bell Work Phone: [facility] 10-15-2023 09:44-0400 Body height 157.48 cm MD Garrison Bell Work Phone: [facility] 10-15-2023 09:44-0400 Body weight 141.52 kg MD Garrison Bell Work Phone: [facility] 09-04-2023 11:24-0400 Body height 160.02 cm [facility] 09-04-2023 11:24-0400 Body mass index (BMI) [Ratio] 57 kg/m2 [facility] 09-04-2023 11:24-0400 Body weight 146.11 kg [facility] 09-04-2023 11:24-0400 Diastolic blood pressure 97 mm[Hg] [facility] 09-04-2023 11:24-0400 Heart rate 86 /min [facility] 09-04-2023 11:24-0400 SaO2% (BldA) [Mass fraction] 98 % [facility] 09-04-2023 11:24-0400 Systolic blood pressure 166 mm[Hg] [facility] 06-05-2023 11:30-0500 Body height 160.02 cm Garrison Bell Other [facility] Other 06-05-2023 11:30-0500 Body mass index (BMI) [Ratio] 55.62 kg/m2 Garrison Bell Other [facility] Other 06-05-2023 11:30-0500 Body weight 142.43 kg Garrison Bell Other [facility] Other 06-05-2023 11:30-0500 Diastolic blood pressure 78 mm[Hg] Garrison Bell Other [facility] Other 06-05-2023 11:30-0500 SaO2% (BldA) [Mass fraction] 98 % Garrison Bell Other [facility] Other 06-05-2023 11:30-0500 Systolic blood pressure 132 mm[Hg] Garrison Bell Other [facility] Other 05-28-2023 11:00-0500 Diastolic blood pressure 97 mm[Hg] MD Garrison Bell Work Phone: [facility] 05-28-2023 11:00-0500 Heart rate 79 /min MD Garrison Bell Work Phone: [facility] 05-28-2023 11:00-0500 Respiratory rate 16 /min MD Garrison Bell Work Phone: [facility] 05-28-2023 11:00-0500 SaO2% (BldA) [Mass fraction] 98 % MD Garrison Bell Work Phone: [facility] 05-28-2023 11:00-0500 Systolic blood pressure 173 mm[Hg] MD Garrison Bell Work Phone: [facility] 05-28-2023 10:15-0500 Inhaled oxygen flow rate 3 L/min MD Garrison Bell Work Phone: [facility] 05-28-2023 10:04-0500 Body height 157.48 cm MD Garrison Bell Work Phone: [facility] 05-28-2023 10:04-0500 Body weight 141.52 kg MD Garrison Bell Work Phone: [facility] 05-07-2023 10:15-0500 Diastolic blood pressure 87 mm[Hg] MD Garrison Bell Work Phone: [facility] 05-07-2023 10:15-0500 Heart rate 74 /min MD Garrison Bell Work Phone: [facility] 05-07-2023 10:15-0500 Respiratory rate 16 /min MD Garrison Bell Work Phone: [facility] 05-07-2023 10:15-0500 SaO2% (BldA) [Mass fraction] 95 % MD Garrison Bell Work Phone: [facility] 05-07-2023 10:15-0500 Systolic blood pressure 173 mm[Hg] MD Garrison Bell Work Phone: [facility] 05-07-2023 09:30-0500 Inhaled oxygen flow rate 3 L/min MD Garrison Bell Work Phone: [facility] 05-07-2023 08:40-0500 Body height 157.48 cm MD Garrison Bell Work Phone: [facility] 05-07-2023 08:40-0500 Body weight 141.52 kg MD Garrison Bell Work Phone: [facility] 03-06-2023 11:30-0400 Body height 160.02 cm Garrison Bell Other [facility] Other 03-06-2023 11:30-0400 Body mass index (BMI) [Ratio] 55.26 kg/m2 Garrison Bell Other [facility] Other 03-06-2023 11:30-0400 Body weight 141.52 kg Garrison Bell Other [facility] Other 03-06-2023 11:30-0400 Diastolic blood pressure 72 mm[Hg] Garrison Bell Other [facility] Other 03-06-2023 11:30-0400 Respiratory rate 12 /min Garrison Bell Other [facility] Other 03-06-2023 11:30-0400 Systolic blood pressure 118 mm[Hg] Garrison Bell Other [facility] Other 02-12-2023 11:10-0400 Diastolic blood pressure 80 mm[Hg] MD Garrison Bell Work Phone: [facility] 02-12-2023 11:10-0400 Heart rate 80 /min MD Garrison Bell Work Phone: [facility] 02-12-2023 11:10-0400 Respiratory rate 18 /min MD Garrison Bell Work Phone: [facility] 02-12-2023 11:10-0400 SaO2% (BldA) [Mass fraction] 96 % MD Garrison Bell Work Phone: [facility] 02-12-2023 11:10-0400 Systolic blood pressure 145 mm[Hg] MD Garrison Bell Work Phone: [facility] 02-12-2023 10:28-0400 Inhaled oxygen flow rate 3 L/min MD Garrison Bell Work Phone: [facility] 02-12-2023 09:59-0400 Body height 157.48 cm MD Garrison Bell Work Phone: [facility] 02-12-2023 09:59-0400 Body weight 92.07 kg MD Garrison Bell Work Phone: [facility] 12-05-2022 11:30-0400 Body height 160.02 cm Garrison Bell Other [facility] Other 12-05-2022 11:30-0400 Body mass index (BMI) [Ratio] 55.09 kg/m2 Garrison Bell Other [facility] Other 12-05-2022 11:30-0400 Body temperature 97.8 [degF] Garrison Bell Other [facility] Other 12-05-2022 11:30-0400 Body weight 141.07 kg Garrison Bell Other [facility] Other 12-05-2022 11:30-0400 Diastolic blood pressure 50 mm[Hg] Garrison Bell Other [facility] Other 12-05-2022 11:30-0400 Systolic blood pressure 92 mm[Hg] Garrison Bell Other [facility] Other 10-23-2022 09:42-0400 Diastolic blood pressure 80 mm[Hg] MD Garrison Bell Work Phone: [facility] 10-23-2022 09:42-0400 Heart rate 75 /min MD Garrison Bell Work Phone: [facility] 10-23-2022 09:42-0400 Respiratory rate 18 /min MD Garrison Bell Work Phone: [facility] 10-23-2022 09:42-0400 SaO2% (BldA) [Mass fraction] 98 % MD Garrison Bell Work Phone: [facility] 10-23-2022 09:42-0400 Systolic blood pressure 142 mm[Hg] MD Garrison Bell Work Phone: [facility] 10-23-2022 09:03-0400 Inhaled oxygen flow rate 3 L/min MD Garrison Bell Work Phone: [facility] 10-23-2022 08:15-0400 Body height 157.48 cm MD Garrison Bell Work Phone: [facility] 10-23-2022 08:15-0400 Body weight 141.97 kg MD Garrison Bell Work Phone: [facility] 10-09-2022 16:00-0400 Body height 160.02 cm Alka Hankins Other [facility] Other 10-09-2022 16:00-0400 Body mass index (BMI) [Ratio] 55.26 kg/m2 Alkamarisabel Hankins Other [facility] Other 10-09-2022 16:00-0400 Body weight 141.52 kg Alkamarisabel Hankins Other [facility] Other 09-04-2022 12:30-0400 Body height 160.02 cm Garrison Bell Other [facility] Other 09-04-2022 12:30-0400 Body mass index (BMI) [Ratio] 55.26 kg/m2 Garrison Bell Other [facility] Other 09-04-2022 12:30-0400 Body weight 141.52 kg Garrison Bell Other [facility] Other 09-04-2022 12:30-0400 Diastolic blood pressure 82 mm[Hg] Garrison Bell Other [facility] Other 09-04-2022 12:30-0400 Systolic blood pressure 128 mm[Hg] Garrison Bell Other [facility] Other 08-07-2022 08:38-0500 Diastolic blood pressure 55 mm[Hg] MD Garrison Bell Work Phone: [facility] 08-07-2022 08:38-0500 Heart rate 78 /min MD Garrison Bell Work Phone: [facility] 08-07-2022 08:38-0500 Respiratory rate 16 /min MD Garrison Bell Work Phone: [facility] 08-07-2022 08:38-0500 SaO2% (BldA) [Mass fraction] 95 % MD Garrison Bell Work Phone: [facility] 08-07-2022 08:38-0500 Systolic blood pressure 130 mm[Hg] MD Garrison Bell Work Phone: [facility] 08-07-2022 07:59-0500 Inhaled oxygen flow rate 3 L/min MD Garrison Bell Work Phone: [facility] 08-07-2022 07:23-0500 Body height 157.48 cm MD Garrison Bell Work Phone: [facility] 08-07-2022 07:23-0500 Body weight 141.97 kg MD Garrison Bell Work Phone: [facility] 02-27-2022 14:15-0400 Body height 160.02 cm Zena García Other [facility] Other 02-27-2022 14:15-0400 Body mass index (BMI) [Ratio] 53.67 kg/m2 Zena García Other [facility] Other 02-27-2022 14:15-0400 Body weight 137.44 kg Zena García Other [facility] Other 02-06-2022 15:00-0400 Body height 160.02 cm Zena García Other [facility] Other 02-06-2022 15:00-0400 Body mass index (BMI) [Ratio] 53.67 kg/m2 Zena García Other [facility] Other 02-06-2022 15:00-0400 Body weight 137.44 kg Zena Ricky Other [facility] Other 01-03-2022 10:35-0400 Body height 160.02 cm Jazz Nance Other [facility] Other 01-03-2022 10:35-0400 Body mass index (BMI) [Ratio] 53.67 kg/m2 Jazz Melendezmond Other [facility] Other 01-03-2022 10:35-0400 Body temperature 98.5 [degF] Jazz Nance Other [facility] Other 01-03-2022 10:35-0400 Body weight 137.44 kg Jazz Nance Other [facility] Other 01-03-2022 10:35-0400 SaO2% (BldA) [Mass fraction] 95 % Jazz Nance Other [facility] Other 11-06-2021 15:45-0400 Body height 160.02 cm Zena García Other [facility] Other 03-22-2021 10:45-0400 Body height 160.02 cm Zena García Other [facility] Other 03-22-2021 10:45-0400 Body mass index (BMI) [Ratio] 50.3 kg/m2 Zena García Other [facility] Other 03-22-2021 10:45-9908 Body weight 128.82 kg Zena García Other [facility] Other Encounters Encounter Date Encounter Type Care Provider Facility Start: 07-08-2024 End: 07-08-2024 ambulatory [facility] Work Phone: Start: 07-08-2024 End: 07-08-2024 Patient encounter procedure [facility] Work Phone: Start: 07-07-2024 End: 07-07-2024 ambulatory [facility] Work Phone: Start: 07-07-2024 End: 07-07-2024 Patient encounter procedure [facility] Work Phone: Start: 06-30-2024 End: 06-30-2024 ambulatory [facility] Work Phone: Start: 06-30-2024 End: 06-30-2024 [facility] Work Phone: Start: 04-06-2024 End: 04-06-2024 ambulatory MD Garrison Bell Work Phone: [facility] Work Phone: Start: 04-06-2024 End: 04-06-2024 Patient encounter procedure MD Garrison Bell Work Phone: [facility] Work Phone: Start: 03-24-2024 Non-patient / Non-visit MD Chelsea Bell Work Phone: [facility] Work Phone: Start: 03-24-2024 End: 03-24-2024 Admission to same day surgery center MD Garrison Bell Work Phone: [facility] Work Phone: Start: 03-24-2024 End: 03-24-2024 ambulatory MD Garrison Bell Work Phone: [facility] Work Phone: Start: 03-23-2024 End: 03-23-2024 ambulatory [facility] Work Phone: Start: 03-23-2024 End: 03-23-2024 Patient encounter procedure [facility] Nephrology [facility] Work Phone: Start: 03-17-2024 End: 03-17-2024 ambulatory RENETTA NGUYEN Not Available Start: 03-17-2024 End: 03-17-2024 Office outpatient new 20 minutes Renetta Nguyen MD Work Phone: [facility] Comment on above: Seborrheic keratosis (Primary Dx); Neoplasm of unspecified behavior of bone, soft tissue, and skin Start: 03-17-2024 End: 03-17-2024 Bamboo flowsheet Renetta Nguyen MD Work Phone: [facility] Start: 03-17-2024 End: 03-17-2024 Jeanette Nguyen MD Work Phone: [facility] Start: 03-16-2024 Non-patient / Non-visit [facility] Work Phone: Start: 03-16-2024 End: 03-16-2024 ambulatory [facility] Start: 03-12-2024 End: 03-12-2024 ambulatory [facility] Work Phone: Start: 03-12-2024 End: 03-12-2024 Patient encounter procedure [facility] Work Phone: Start: 03-10-2024 End: 03-10-2024 ambulatory [facility] Work Phone: Start: 03-10-2024 End: 03-10-2024 Patient encounter procedure [facility] [place] [facility] Work Phone: Start: 01-15-2024 End: 01-15-2024 ambulatory MD Garrison Bell Work Phone: [facility] Work Phone: Start: 01-15-2024 End: 01-15-2024 Patient encounter procedure MD Garrison Bell Work Phone: [facility] Work Phone: Start: 01-09-2024 Non-patient / Non-visit MD Chelsea Bell Work Phone: [facility] Work Phone: Start: 12-30-2023 Non-patient / Non-visit MD Chelsea Bell Work Phone: [facility] Work Phone: Start: 12-09-2023 Non-patient / Non-visit MD Chelsea Bell Work Phone: [facility] Work Phone: Start: 12-04-2023 End: 12-04-2023 ambulatory MD Garrison Bell Work Phone: [facility] Work Phone: Start: 12-04-2023 End: 12-04-2023 Patient encounter procedure MD Garrison Bell Work Phone: [facility] Work Phone: Start: 11-29-2023 Non-patient / Non-visit MD Chelsea Bell Work Phone: [facility] Work Phone: Start: 11-25-2023 End: 11-25-2023 ambulatory [facility] Start: 11-04-2023 Non-patient / Non-visit MD Chelsea Bell [facility] Phone[facility] Work Phone: Start: 10-25-2023 End: 10-25-2023 ambulatory [facility] Start: 10-17-2023 End: 10-17-2023 ambulatory MD Garrison Bell Work Phone: [facility] Work Phone: Start: 10-17-2023 End: 10-17-2023 Patient encounter procedure MD Garrison Bell Work Phone: [facility] [place] [facility] Work Phone: Start: 10-17-2023 Non-patient / Non-visit MD Chelsea Bell Work Phone: [facility] Work Phone: Start: 10-15-2023 Non-patient / Non-visit MD Chelsea Bell Work Phone: [facility] Work Phone: Start: 10-15-2023 End: 10-15-2023 Admission to same day surgery center MD Garrison Bell Work Phone: [facility] Work Phone: Start: 10-15-2023 End: 10-15-2023 ambulatory MD Garrison Bell Work Phone: [facility] Work Phone: Start: 10-10-2023 End: 10-10-[address] [facility] Work Phone: Start: 10-10-2023 End: 10-10-2023 Patient encounter procedure [facility] Work Phone: Start: 10-09-2023 End: 10-09-2023 ambulatory [facility] Start: 09-13-2023 End: 09-13-2023 ambulatory MOHAMAD [facility] Start: 09-04-2023 End: 09-04-2023 Patient encounter procedure [facility] Work Phone: Start: 08-16-2023 Non-patient / Non-visit [facility] Work Phone: Start: 07-15-2023 End: 07-15-2023 ambulatory Garrison Bell Other [facility] Other Start: 07-15-2023 Telephone encounter Garrison Bell [facility] Start: 06-07-2023 End: 06-07-2023 ambulatory Garrison Bell Other [facility] Other Start: 06-07-2023 Telephone encounter Garrison Bell [facility] Start: 06-05-2023 End: 06-05-2023 ambulatory Garrison Bell Other [facility] Other Start: 06-05-2023 Office outpatient vi sit 25 minutes Garrison Bell [facility] Start: 05-28-2023 (Procedure) Short Eric Villanueva [facility] Start: 05-28-2023 End: 05-28-2023 Admission to same day surgery center MD Garrison Bell Work Phone: [facility] Work Phone: Start: 05-28-2023 End: 05-28-2023 ambulatory MD Garrison Bell Work Phone: [facility] Work Phone: Start: 05-20-2023 End: 05-20-2023 ambulatory Eric Villanueva Other [facility] Other Start: 05-20-2023 Office outpatient vi sit 25 minutes Eric Villanueva [facility] [place] Start: 05-08-2023 End: 05-08-2023 ambulatory RIMA J[facility] Start: 05-07-2023 (Procedure) Boyd Villanueva [facility] Start: 05-07-2023 End: 05-07-2023 Admission to same day surgery center MD Garrison Bell Work Phone: [facility] Work Phone: Start: 05-07-2023 End: 05-07-2023 ambulatory Garrison Bell [facility] Other Start: 04-23-2023 End: 04-23-2023 Patient encounter procedure MD Garrison Bell Work Phone: [facility] [place] [facility] Start: 04-23-2023 End: 04-23-2023 ambulatory MD Garrison Bell Work Phone: [facility] Work Phone: Start: 04-23-2023 Office outpatient vi sit 25 minutes Eric Villanueva [facility] [place] Start: 03-06-2023 End: 03-06-2023 ambulatory Garrison Bell Other [facility] Other Start: 03-06-2023 Office outpatient vi sit 15 minutes Garrison Bell [facility] Start: 02-28-2023 End: 02-28-2023 ambulatory Eric Changiuliano Other [facility] Other Start: 02-28-2023 Office outpatient vi sit 15 minutes Eric Villanueva [facility] [place] Start: 02-12-2023 (Procedure) Boyd Villanueva [facility] Start: 02-12-2023 End: 02-12-2023 Admission to same day surgery center MD Garrison Bell Work Phone: [facility] Work Phone: Start: 02-12-2023 End: 02-12-2023 ambulatory MD Garrison Bell Work Phone: [facility] Work Phone: Start: 02-07-2023 End: 02-07-2023 ambulatory Eric Villanueva Other [facility] Other Start: 02-07-2023 Office outpatient vi sit 25 minutes Eric Villanueva [facility] [place] Start: 01-01-2023 End: 01-01-2023 ambulatory Garrison Bell Other [facility] Other Start: 01-01-2023 Telephone encounter Garrison Bell [facility] Start: 12-31-2022 End: 12-31-2022 ambulatory Garrison Bell Other [facility] Other Start: 12-31-2022 Telephone encounter Garrison Bell [facility] Start: 12-05-2022 End: 12-05-2022 ambulatory Garrison Bell Other [facility] Other Start: 12-05-2022 Office outpatient vi sit 25 minutes Garrison Bell [facility] Start: 11-27-2022 End: 11-27-2022 ambulatory Garrison Bell Other [facility] Other Start: 11-27-2022 Telephone encounter Garrison Bell [facility] Start: 11-06-2022 End: 11-07-[address] GARRISON BELL Facility: Start: 11-05-2022 End: 11-05-2022 ambulatory MD Garrison Bell Work Phone: [facility] Work Phone: Start: 11-05-2022 End: 11-05-2022 Patient encounter procedure MD Garrison Bell Work Phone: [facility] Start: 10-23-2022 (Procedure) Short Eric Villanueva [facility] Start: 10-23-2022 End: 10-23-2022 ambulatory Eric Villanueva Other [facility] Other Start: 10-23-2022 End: 10-23-2022 Admission to same day surgery center MD Garrison Bell Work Phone: [facility] Work Phone: Start: 10-10-2022 End: 10-10-2022 ambulatory Eric Villanueva Other [facility] Other Start: 10-10-2022 Telephone encounter Eric Flanagan [facility] Start: 10-09-2022 End: 10-09-2022 Patient encounter procedure MD Garrison Bell Work Phone: [facility] [place] [facility] Start: 10-09-2022 End: 10-09-2022 ambulatory Alka Hankins Other [facility] Other Start: 10-09-2022 Office outpatient ne w 45 minutes Alka Hankins [facility] [place] [facility] Start: 09-04-2022 End: 09-04-2022 ambulatory Garrison Bell Other [facility] Other Start: 09-04-2022 Office outpatient vi sit [address] [facility] Start: 08-24-2022 End: 08-24-2022 ambulatory Eric Villanueva Other [facility] Other Start: 08-24-2022 Telephone encounter Eric [facility] Start: 08-22-2022 End: 08-23-2022 ambulatory ZENA POTTER Facility:[facility] Start: 08-22-2022 End: 08-22-2022 Patient encounter procedure ZENA POTTER [facility] Start: 08-14-2022 End: 08-14-2022 ambulatory Eric Villanueva Other [facility] Other Start: 08-14-2022 Office outpatient vi sit 25 minutes Eric BARRERA [facility] [place] Start: 08-07-2022 End: 08-07-2022 Admission to same day surgery center MD Garrison Bell Work Phone: [facility] Work Phone: Start: 08-07-2022 End: 08-07-2022 ambulatory MD Garrison Bell Work Phone: [facility] Work Phone: Start: 07-27-2022 End: 07-27-2022 ambulatory Garrison Bell Other [facility] Other Start: 07-27-2022 Telephone encounter Garrison Bell [facility] Start: 07-26-2022 End: 07-27-[address] GARRISON BELL Facility:[facility] Start: 07-17-2022 End: 07-17-2022 ambulatory Eric Villanueva Other [facility] Other Start: 07-17-2022 Telephone encounter Eric [facility] Start: 06-19-2022 Adult health examination Eric Villanueva Other [facility] Other Start: 06-19-2022 End: 06-20-[address] GARRISON BELL Facility:[facility] Start: 06-10-2022 End: 06-11-[address] GARRISON BELL Facility:[facility] Start: 05-08-2022 End: 05-09-[address] GARRISON BELL Facility:[facility] Start: 04-16-2022 End: 04-16-2022 ambulatory Eric Villanueva Other [facility] Other Start: 04-16-2022 Telephone encounter Eric MOHAN G [facility] Start: 03-26-2022 End: 03-26-2022 ambulatory Eric Villanueva Other [facility] Other Start: 03-26-2022 Telephone encounter Eric Felter [facility] Start: 03-13-2022 End: 03-13-2022 ambulatory Eric Villanueva Other [facility] Other Start: 03-13-2022 Telephone encounter Eric Flanagan [facility] Start: 03-12-2022 End: 03-12-2022 ambulatory Eric Villanueva Other [facility] Other Start: 03-12-2022 Office outpatient ne w 45 minutes Eric Villanueva [facility] [place] Start: 03-09-[address] GARRISON BELL Facil ity:[facility] Start: 03-08-2022 End: 03-09-[address] GARRISON BELL Facility:[facility] Start: 02-27-2022 End: 02-27-2022 ambulatory Zena García Other [facility] Other Start: 02-27-2022 Patient encounter procedure [facility] Start: 02-22-2022 End: 02-22-2022 ambulatory Eric Villanueva Other [facility] Other Start: 02-22-2022 Telephone encounter Eric Flanagan [facility] Start: 02-06-2022 End: 02-06-2022 ambulatory Zena García Other [facility] Other Start: 02-06-2022 Office outpatient vi sit 25 minutes Zena García [facility] [place] [facility] Start: 01-24-2022 End: 01-25-[address] GARRISON BELL Facility:[facility] Start: 01-03-2022 End: 01-03-2022 ambulatory Jazz Nance Other [facility] Other Start: 01-03-2022 Office outpatient vi sit 25 minutes Jazz Nance [facility] Start: 11-06-2021 End: 11-06-2021 ambulatory Zena García Other [facility] Other Start: 11-06-2021 Office outpatient vi sit 15 minutes Zena García [facility] Start: 09-06-2021 ambulatory ZENA POTTER Facility :[facility] Start: 08-08-2021 End: 08-08-2021 ambulatory Zena García Other [facility] Other Start: 08-08-2021 Office outpatient vi sit 15 minutes Zena García [facility] Start: 03-22-2021 Office outpatient vi sit 15 minutes Zena García [facility] Procedures Date Procedure Procedure Detail Performing Clinician Start: 03-24-2024 Epidural injection o f lumbar spine using fluoroscopic guidance MD Garrison Bell Work Phone: Start: 03-17-2024 End: 03-17-2024 SKIN / NAIL BIOPSY Renetta Nguyen MD Work Phone: Start: 10-15-2023 Epidural injection o f lumbar [...] Treatment Date Care Activity Detail Author Start: 03-24-2024 [facility] Start: 12-04-2023 Patient referral [facility] Work Phone: Start: 10-17-2023 X-ray of left knee XR knee LT 2V [facility] Start: 10-17-2023 XR Knee - left 2 Views [facility] Start: 10-15-2023 [facility] Start: 05-28-2023 [facility] Start: 05-07-2023 [facility] Start: 02-12-2023 [facility] Start: 10-23-2022 [facility] Start: 08-07-2022 [facility] Comprehensive metabo lic 2000 panel - Serum or Plasma [facility] CT Chest WO and W contrast IV [facility] Dermatopathology exam Dermatopat hology exam Pathology and Cytology Timed Neoplasm of unspecified behavior of bone, soft tissue, and skin Release Upon Ordering for 1 Occurrences starting 03/17/2024 [facility] [employer] Work Phone: Comment on above: Release Upon Ordering for 1 Occurrences starting 03/17/[address] [facility] Work Phone: Patient referral [facility] Work Phone: Renal function 2000 panel - Serum or Plasma [facility] US [facility] Immunizations Immunization Date Immunization Notes Care Provider Fa cility 06-05-2022 Prevnar 20 Eric Villanueva Other [facility] 10-25-2022 COVID-19 Pfizer (Pediatric) Eric Villanueva Other [facility] 04-17-2022 influenza virus vaccine, split virus (incl. purified surface antigen) Eric Villanueva Other [facility] Other 04-17-2022 influenza virus vaccine, unspecified formulation [facility] 04-14-2021 COVID-19 Vaccine Pfi zer - Documentation Purposes Only Eric Villanueva Other [facility] 04-14-2021 influenza virus vaccine, split virus (incl. purified surface antigen) Eric Villanueva Other [facility] Other 04-14-2021 influenza virus vaccine, unspecified formulation [facility] 03-24-2021 SARS-CoV-2 (COVID-19 ) Ad26 vaccine, recombinant ZENA ABBEY [facility] 03-22-2021 Kenalog -40 mg Zena Kear ingrid Other [facility] Other 11-16-2020 Kenalog -40 mg Zena Kear ingrid Other [facility] Other 08-22-2020 SARS-CoV-2 (COVID-19 ) Ad26 vaccine, recombinant ZENA ABBEY [facility] 07-25-2020 SARS-CoV-2 (COVID-19 ) Ad26 vaccine, recombinant ZENA ABBEY [facility] 06-20-2020 zoster vaccine, live Eric Villanueva Other [facility] 01-07-2020 zoster vaccine, live Eric Villanueva Other [facility] 05-05-2019 influenza virus vaccine, split virus (incl. purified surface antigen) Eric Villanueva Other [facility] Other 05-05-2019 influenza virus vaccine, unspecified formulation [facility] 04-07-2018 influenza virus vaccine, split virus (incl. purified surface antigen) Eric Villanueva Other [facility] Other 04-07-2018 influenza virus vaccine, unspecified formulation [facility] 03-21-2016 diphtheria, tetanus toxoids and acellular pertussis vaccine, unspecified formulation Eric Villanueva Other [facility] 12-01-2015 pneumococcal polysaccharide vaccine, 23 valent Eric Villanueva Other [facility] 03-23-2013 pneumococcal conjuga te vaccine, 13 valent Eric Villanueva Other [facility] pneumococcal Conjuga te, unspecified formulation; Translations: [Need for prophylactic vaccination against Streptococcus pneumoniae (pneumococcus)] Eric Villanueva Other [facility] Other Payers Date Payer Category Payer Self-pay [id number] 2021 Unknown [employer] [id number] 2021-Present [address] [place] [address] [id number] 2015 Medicare MEDICARE MEDICAR E PART B [id number] 2015-Present [address] [address] [place] [address] Medicare [id number] 1959 Medicare [id number] 1959 Unknown [id number] 1950 Unknown [id number] [id number]. 727 1950 Unknown [id number] 2.16.840.1.511243.3.579.2. 593 1950 Unknown [id number] 2.16.840.1.016380.3.579.2. 593 1950 Unknown [id number] 2.16.840.1.186603.3.579.2. 593 1950 Unknown [id number] 2.16.840.1.483849.3.579.2. 593 1950 Unknown [id number] 2.16.840.1.305736.3.579.2. 593 1950 Unknown [id number] 2.16.840.1.645817.3.579.2. 593 1950 Unknown [id number] 2.16840.1.752569.3.579.2. 593 1950 Unknown [id number] 2.16840.1.155884.3.579.2. 593 1950 Unknown [id number] 2.16.840.1.088971.3.579.2. 593 1950 Unknown [id number] 2.16840.1.872794.3.579.2. 1259 Private Health Insurance [facility] Health Claims [id number] Unknown [employer] [id number] Unknown HCAP/HFA/FAP Active [id number] Unknown [id number] [id number]. 531 Unknown [id number] 2.840.1.195145.3.579.2. 531 Unknown [id number] 2.16.840.1.730595.3.579.2. 531 Social History Date Type Detail Facility Unknown if ever smoked [facility] Other Start: 03-17-2024 Sex Assigned At F [facility] Start: 08-07-2022 End: 03-23-2024 Tobacco smoking status NHIS Never smoked tobacco (finding) [facility] Start: 1950 Sex Assigned At Female F [facility] Tobacco smoking status Never [facility] Start: 03-17-2024 Tobacco use and exposure Smokeless tobacco non-user [facility] Start: 03-17-2024 History of Social function [facility] Start: 1950 Sex assigned at Not on file [facility] Tobacco smoking status KSIS Tobacco smoking consumption unknown [facility] Start: 06-30-2024 End: 07-08-2024 Sex Female (finding) [facility] Medical Equipment Procedure Code Equipment Code Equipment Origin al Text Equipment Identifier Dates Blood Sugar Diagnostic (True Metrix Glucose Test Strip) strip Start: 12-11-2023 Lancets (True Comfort Lancet) 30 gauge misc Start: 12-11-2023 Blood Sugar Diagnostic (True Metrix Glucose Test Strip) strip Start: 12-11-2023 Lancets (True Comfort Lancet) 30 gauge misc Start: 12-11-2023 Blood Sugar Diagnostic (True Metrix Glucose Test Strip) strip Start: 12-11-2023 Lancets (True Comfort Lancet) 30 gauge misc Start: 12-11-2023 Blood Sugar Diagnostic (True Metrix Glucose Test Strip) strip Start: 12-11-2023 Lancets (True Comfort Lancet) 30 gauge misc Start: 12-11-2023 Blood Sugar Diagnostic (True Metrix Glucose Test Strip) strip Start: 12-11-2023 Lancets (True Comfort Lancet) 30 gauge misc Start: 12-11-2023 Blood Sugar Diagnostic (True Metrix Glucose Test Strip) strip Start: 12-11-2023 Lancets (True Comfort Lancet) 30 gauge misc Start: 12-11-2023 Blood Sugar Diagnostic (True Metrix Glucose Test Strip) strip Start: 12-11-2023 Lancets (True Comfort Lancet) 30 gauge misc Start: 12-11-2023 Blood Sugar Diagnostic (True Metrix Glucose Test Strip) strip Start: 12-11-2023 Lancets (True Comfort Lancet) 30 gauge misc Start: 12-11-2023 Blood Sugar Diagnostic (True Metrix Glucose Test Strip) strip Start: 12-11-2023 Lancets (True Comfort Lancet) 30 gauge misc Start: 12-11-2023 Goals Date Patient Goal Desired Activity /State Clinical Notes 03-22-2021 to 06-30-2024 Note Date & Type Note Facility 06-30-2024 Evaluation note Diagnosis Onset Date Resolution Chronic pain acute June 30, 2024 2:41pm Degenerative disc disease, lumbar acute June 30 2:41pm Spondylosis without myelopathy or radiculopathy, lumbosacral region acute June 30, 2024 2:41pm Left carpal tunnel syndrome acute July 07 1:40pm Right hand pain acute June 242024 1:40pm Trigger finger, right index finger acute July 07 1:40pm [facility] Work Phone: 1(241) 902-656510-14-2024 Evaluation note* Diagnosis Onset Date Resolution Status Admit Date Anemia acute April 06, 2024 11:26am Chronic depression acute Octobe r 2023 11:26am CKD (chronic kidney disease) stage 3, GFR 30-59 ml/min acute Marobe 2023 11:26am Type 2 diabetes mellitus wit h hyperglycemia acute April 06 11:26am Chronic pain acute June 30, 2024 2:41pm Degenerative disc disease, lumbar acute June 30 2:41pm Spondylosis without myelopat hy or radiculopathy, lumbosacral region acute June 30 2:41pm [facility] Work Phone: 1(551) 225-397310-01-2024 [facility] of Present illness Narrative* Renetta Nguyen MD - 03/17/2024 3:35 PM EDT Images from the original note were not included. Lesions: Location: neck, front and back, and side of breast Duration: years Quality: painful Modifying factors: rubs on clothing, aggravated by jewelry, aggravated by picking Associated symptoms: darkening, enlarged, tender, when I turn my neck I feel a 'zing' Treatments: PCP used cryotherapy and it came back bigger New patient All pertinent medical history, medications, and allergies were reviewed. General Exam: alert , oriented to person, place, and time , normal affect, well appearing Accompanied by daughter A focused exam completed based on patient reported problems, see below: 1. Neoplasm of unspecified behavior of bone, soft tissue, and skin (2) Neck - Anterior Hyperkeratotic pedunculated papule Lesion biopsy Type of biopsy: tangential Informed consent: discussed and consent obtained Informed consent comment: The risks and benefits of the biopsy were discussed. Risks include but are not limited to bleeding, infection, scarring, pain, and nerve damage. An opportunity to ask questions prior to the procedure was permitted and all questions were answered. Patient was prepped and draped in usual sterile fashion: area cleansed with alcohol. Anesthesia: the lesion was anesthetized in a standard fashion Anesthetic: 1% lidocaine w/ epinephrine 1-100,000 buffered w/ 8.4% NaHCO3 Instrument used: DermaBlade Hemostasis achieved with: electrodesiccation Outcome: patient tolerated procedure well Outcome comment: The specimen was placed in a prelabeled formalin container to be sent for pathology Post-procedure details: sterile dressing applied and wound care instructions given Post-procedure details comment: Emphasized need to contact clinic for any signs of infection, uncontrollable bleeding, or complications. Dressing type: bandage Additional details: Photo taken. Amount of lidocaine used: 3 cc Specimen A - Dermatopathology exam Differential Diagnosis: ISK vs SCC Check Margins: No Size of lesion: 1.3 x 1.2 cm Neck - Posterior Hyperkeratotic pedunculated papule Lesion biopsy Type of biopsy: tangential Informed consent: discussed and consent obtained Informed consent comment: The risks and benefits of the biopsy were discussed. Risks include but are not limited to bleeding, infection, scarring, pain, and nerve damage. An opportunity to ask questions prior to the procedure was permitted and all questions were answered. Patient was prepped and draped in usual sterile fashion: area cleansed with alcohol. Anesthesia: the lesion was anesthetized in a standard fashion Anesthetic: 1% lidocaine w/ epinephrine 1-100,000 buffered w/ 8.4% NaHCO3 Instrument used: DermaBlade Hemostasis achieved with: electrodesiccation Outcome: patient tolerated procedure well Outcome comment: The specimen was placed in a prelabeled formalin container to be sent for pathology Post-procedure details: sterile dressing applied and wound care instructions given Post-procedure details comment: Emphasized need to contact clinic for any signs of infection, uncontrollable bleeding, or complications. Dressing type: bandage Additional details: Photo taken. Amount of lidocaine used: 1 cc Specimen B - Dermatopathology exam Differential Diagnosis: ISK vs SCC Check Margins: No Size of lesion: 0.8 x 0.8 cm 2. Seborrheic keratosis Left Breast Stuck on verrucous, peña-brown papules and plaques. Patient was counseled regarding these benign growths. Removal is normally not necessary, but they may be removed if they are symptomatic or for cosmetic reasons. Next Visit: prn for any new/changing lesions, pending biopsy results documented in this encounterCass [facility] [id number] Chief Complaint: Patient here for 3 mo follow up CAD, HFpEF, and hypertension. She has her first apt with nephrology soon. Daughter states her GALLAGHER is worsening, but patient states it's unchanged. Patient denies LE edema and palpitations. Still has the same ache in her chest. Says BP's at home have been in normal range s/p getting new arm cuff. HPI: Libra Noonan is a 73 y.o. female Still short of breath with exertion. No chest pain. No orthopnea or paroxysmal nocturnal dyspnea. No worsening lower extremity edema. Also complains of a cough productive of phlegm and chills. No fevers. Has had multiple episodes of bronchitis and pneumonia in the past. Cardiology ROS: Review of Systems Constitutional: Positive for malaise/fatigue. Cardiovascular: Positive for chest pain ( ache every once in awhile ) and dyspnea on exertion. Respiratory: Positive for cough, sleep disturbances due to breathing and wheezing. Neurological: Positive for light-headedness and loss of balance. Allergic/Immunologic: Positive for environmental allergies. All other systems reviewed and are negative. Past Medical History She has a past medical history of Coronary artery disease, Diabetes mellitus ([facility]), Hyperlipidemia, and Hypertension. Surgical History She has [...] by mouth in the morning and at bedtime. (Patient not taking: Reported on 11/25/2023), Disp: 60 tablet, Rfl: 1 carvedilol (Coreg) 25 mg tablet, Take 1 tablet (25 mg) by mouth with breakfast and with evening meal. (Patient taking differently: Take 12.5 mg by mouth with breakfast and with evening meal.), Disp: 180 tablet, Rfl: 3 cholecalciferol (Vitamin D-3) 50 MCG (2000 UT) tablet, Take 2,000 Units by mouth in the morning., Disp: , Rfl: ezetimibe (Zetia) 10 mg tablet, Take 1 tablet (10 mg) by mouth in the morning., Disp: 90 tablet, Rfl: 3 fexofenadine (Nevaeh) 180 mg tablet, Take 180 mg by mouth in the morning. As needed, Disp: , Rfl: furosemide (Lasix) 20 mg tablet, Take 1 tablet (20 mg) by mouth in the morning., Disp: 90 tablet, Rfl: 3 glipiZIDE (Glucotrol) 5 mg tablet, Take 5 mg by mouth in the morning., Disp: , Rfl: insulin NPH and regular human (NovoLIN) 100 unit/mL (70-30) injection, Inject under the skin before breakfast and before evening meal., Disp: , Rfl: lisinopril 5 mg tablet, Take 1 tablet (5 mg) by mouth in the morning., Disp: 90 tablet, Rfl: 3 Last Recorded Vitals BP 148/80 (BP Location: Left wrist, Patient Position: Sitting) Pulse 70 Ht 1.575 m (5' 2 ) Wt (!) 145 kg (319 lb) SpO2 96% BMI 58.35 kg/m??? Physical Examination: GENERAL: alert and oriented [...] evaluation 2. Pending exercise test results Investigations: Echocar (more content not included)...[facility] 11-25-2023 [facility] Chief Complaint: Patient [...] size and systolic fu (more content not included)...[facility]05-03-2024 NoteCardiovascular Laboratory Report FINAL IMPRESSIONS: Moderate, focal disease of [...] given her serum creatinine Follow-up with Dr. Rosales in the next 1 to 2 months [...] internal jugular vein was obtained. A 6 Zambian 11 cm sheath was inserted without difficulty. [...] left radial artery was obtained. A 6 Zambian glide sheath was inserted without difficulty. Bilateral [...] of breath, chest pain, abnormal stress test [facility]04-26-2024 Damon Rosales notified of Creatinine of 1.25 (0.55-1.02) on 10/17/23 with previous of 1.21 on 08/16/23. IV hydration of 0.9% NS at 1 ml/Kg/hr for 4 hrs prior to procedure per Dr Rosales.[facility]04-23-2024 [facility] Note Chief Complaint: [...] stress imaging with reversib (more content not included)...[facility] 09-13-2023 NoteCardiovascular Medicine [facility] SUBJECTIVE HPI: Libra Noonan is a 72 y.o. female here for follow up regarding chest pain. . HPI PMHx: Uncontrolled DM type II, obesity, lower back pain, mild to moderate CAD per 02/2022 cath, HLD Patient here for follow up [facility] ED for chest pain in Jul 2023. States she was advised by ED to follow up with Cardiology. Last stress test was performed in Feb 2022, prior to heart cath with Dr. Rosales. She was noted to have moderate coronary [...] beta-sally plus or m (more content not included)...[facility]01-22-2024 Evaluation note* Encounter Date Diagnosis Assessment Notes Treatment Notes Treatment Clinical Notes Jun, Mixed hyperlipidemia (ICD-10 - E78.2) [facility] Other 12-13-2023 Evaluation note* Encounter Date Diagnosis [...] K52.9) declines GI referral at this time. [facility] Other 11-27-2023 Evaluation note* Encounter Date Diagnosis [...] Above note written by Arian Alanis MA, Personal Injury Law Specialist. Edited and approved by Dr. Eric Villanueva MD. [facility] Other 11-15-2023 NoteCardiovascular Medicine [facility] SUBJECTIVE HPI: Libra Noonan is a 72 [...] warm and dry. Neurological: (more content not included)...[facility] 04-23-2023 Evaluation note* Encounter Date [...] note writ ten by Emi Gutierrez LPN, Personal Injury Law Specialist. Edited and approved by Dr. Eric Villanueva MD. [facility] Other 09-13-2023 Evaluation note* Encounter Date Diagnosis Assessment Notes Treatment Notes Treatment Clinical Notes Feb, Type 2 diabetes mellitus with hyperglycemia (ICD-10 - E11.65) Goal: Maintain A1c below 7.0% by being compliant with prescribed medications, diet & exercise plan prior to f/u visit. Laboratory results were reviewed with patient. STATUS: New/continous Reviewed glucose of 249 - will increase dose of glipizide. [facility] Other 09-07-2023 Evaluation note* Encounter Date Diagnosis [...] note writ ten by Emi Gutierrez LPN, Personal Injury Law Specialist. Edited and approved by Dr. Eric Villanueva MD. [facility] Other 08-22-2023 [facility]08[facility]17[facility]2023 Evaluation note* Encounter Date Diagnosis Assessment [...] note writ ten by Arian Alanis MA, Personal Injury Law Specialist. Edited and approved by Dr. Eric Villanueva MD. [facility] Other 07-10-2023 Evaluation note* Encounter Date Diagnosis Assessment Notes Treatment Notes Treatment Clinical Notes Dec, Dysuria (ICD-10 - R30.0) [facility] Other 06-14-2023 Evaluation note* Encounter Date Diagnosis [...] home. Discussed ER if symptoms worsen. 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 Continue present meds for chronic problem. [facility] Other 03-03-2023 Evaluation note* Encounter Date Diagnosis Assessment Notes Treatment Notes Treatment Clinical Notes Aug, Other spondylosis with radiculopathy, lumbar region (ICD-10 - M47.26) [facility] Other 02-21-2023 Evaluation note* Encounter Date Diagnosis [...] note writ ten by Emi Gutierrez LPN, Personal Injury Law Specialist. Edited and approved by Dr. Eric Villanueva MD. [facility] Other 02-03-2023 NotePROCEDURE: XR HIP RT 2 [...] authenticated by: MIGUEL ANGEL CABALLERO Date: 2022-07-27 09:17[facility]01-24-2023 Evaluation note* Encounter Date Diagnosis Assessment Notes Treatment Notes Treatment Clinical Notes Jun, Other spondylosis with radiculopathy, lumbar region (ICD-10 - M47.26) [facility] Other 10-24-2022 Evaluation note* Encounter Date Diagnosis Assessment Notes Treatment Notes Treatment Clinical Notes Mar, Other spondylosis with radiculopathy, lumbar region (ICD-10 - M47.26) [facility] Other 09-19-2022 Evaluation note* Encounter Date Diagnosis [...] Above note written by Emi Gutierrez LPN, Personal Injury Law Specialist. Edited and approved by Dr. Eric Villanueva [...] negative findings were considered in medical decision-making. [facility] Other 09-06-2022 Evaluation note* Encounter Date Diagnosis Assessment Notes Treatment Notes Treatment Clinical Notes Feb, Primary osteoarthritis of left knee (ICD-10 - M17.12) Feb, Acute pain of left knee (ICD-10 - M25.562) [facility] Other 08-16-2022 Evaluation note* Encounter Date Diagnosis [...] pain of left knee (ICD-10 - M25.562) [facility] Other 07-13-2022 Evaluation note* Encounter Date Diagnosis [...] the ER for worsening symptoms or concerns [facility] Other 05-16-2022 Evaluation note* Encounter Date Diagnosis [...] an appt in 3 months as well 16 May, 2022 Acute pain of left knee (ICD-10 - M25.562) [facility] Other 02-15-2022 Evaluation note* Encounter Date Diagnosis [...] total right knee replacement (ICD-10 - Z96.651) [facility] Other 09-29-2021 Evaluation note* Encounter Date Diagnosis [...] total right knee replacement (ICD-10 - Z96.651) [facility] Other Evaluation + Plan note No data available for this section [facility] evaluation noteNo InformationNort General [facility] Other Evaluation noteNo assessment information available [facility] Work Phone: Evaluation note* Diagnosis Onset Date Resolution Status Hair loss acute Hypercholesteremia acute Left-sided chest pain acute Mass of right axilla acute Mass of right chest wall acu te Type 2 diabetes mellitus with hyperglycemia acute Chronic pain acute Degenerative disc disease, lumbar acute Other spondylosis with radiculopathy, lumbar region acute [facility] Work Phone: Evaluation note* Diagnosis Onset Date Resolution Status Hair loss acute Hypercholesteremia acute Left-sided chest pain acute Mass of right axilla acute Mass of right chest wall acu te Type 2 diabetes mellitus with hyperglycemia acute Chronic pain acute Degenerative disc disease, lumbar acute Other spondylosis with radiculopathy, lumbar region acute Left knee pain acute Primary osteoarthritis of left knee acute [facility] Work Phone: evaluation note* Diagnosis Onset Date Resolution Status Chronic pain acute Degenerative disc disease, lumbar acute Other spondylosis with radiculopathy, lumbar region acute Left knee pain acute Primary osteoarthritis of left knee acute Anemia acute CKD (chronic kidney disease) stage 3, GFR 30-59 ml/min acute [facility] Work Phone: Evaluation note* Diagnosis Onset Date Resolution Status Left knee pain acute Primary osteoarthritis of left knee acute Anemia acute CKD (chronic kidney disease) stage 3, GFR 30-59 ml/min acute Type 2 diabetes mellitus with hyperglycemia acute Chronic pain acute Degenerative disc disease, lumbar acute Other spondylosis with radiculopathy, lumbar region acute [facility] Work Phone: evaluation note* Diagnosis Onset Date Resolution Status Chronic pain acute Degenerative disc disease, lumbar acute Other spondylosis with radiculopathy, lumbar region acute Left knee pain acute Primary osteoarthritis of left knee acute [facility] Work Phone: evaluation note* Diagnosis Onset Date Resolution Status Chronic pain acute Degenerative disc disease, lumbar acute Other spondylosis with radiculopathy, lumbar region acute Left knee pain acute Primary osteoarthritis of left knee acute Chronic pain acute Degenerative disc disease, lumbar acute Other spondylosis with radiculopathy, lumbar region acute [facility] Work Phone: Evaluation note* Diagnosis Onset Date Resolution Status Chronic pain acute Degenerative disc disease, lumbar acute Other spondylosis with radiculopathy, lumbar region acute Left knee pain acute Primary osteoarthritis of left knee acute Chronic pain acute Degenerative disc disease, lumbar acute Other spondylosis with radiculopathy, lumbar region acute Anemia of renal disease acut e CKD (chronic kidney disease) stage 3, GFR 30-59 ml/min acute [id number] acute Secondary hyperparathyroidism acute Type 2 diabetes mellitus wit h diabetic chronic kidney disease acute [facility] Work Phone: Evaluation note* Diagnosis Seborrheic keratosis- Primary Neoplasm of unspecified behavior of bone, soft tissue, and skin [facility] - [facility]* Type Description Date Medical History Diabetes Medical History Hypertension Medical History Hypercholesteremia Medical History chronic depression Medical History anxiety Surgical History tonsillectomy Surgical History appendectomy Surgical History cholecystectomy Surgical History knee replacement Surgical History hysterectomy Surgical History laparoscopy Surgical History carpal tunnel release Surgical History wisdom teeth extract Hospitalization History see above [facility] Other Hishlaa general Narrative - Reported* Type Description Date Medical History Diabetes Medical History Hypertension Medical History Hypercholesteremia Medical History chronic depression Medical History anxiety Surgical History tonsillectomy Surgical History appendectomy Surgical History cholecystectomy Surgical History knee replacement Surgical History hysterectomy Surgical History laparoscopy Surgical History carpal tunnel release Surgical History wisdom teeth extract Hospitalization History see above Hospitalization History [facility] 2021 [employer] [facility] Other Hispacn general Narrative - Reported* Type Description Date Medical History Diabetes Medical History Hypertension Medical History Hypercholesteremia Medical History chronic depression Medical History anxiety Surgical History tonsillectomy Surgical History appendectomy Surgical History cholecystectomy Surgical History knee replacement Surgical History hysterectomy Surgical History laparoscopy Surgical History carpal tunnel release Surgical History wisdom teeth extract Surgical History Epiderral 07/2022 Hospitalization History see above Hospitalization History [facility] 2021 [employer] [facility] Other Hospital Discharge instructions No data available for this section [facility] Hospital Discharge instructionsAmbulatory Orders* Referral to Nephrology Time Frame: 12/04/23, Location: None Selected [facility] Work Phone: Progress note No data available for this section [facility] Reason for Referral Reason *Waiting for appt Uncontrolled type 2 diabetes - on ; A1Cs will be scanned in from 2021. Diagnosis 1 Type 2 diabetes jayda itus with hyperglycemia (E11.65) Referral Organization [facility] Referring Provider First Name Garriosn Referring Provider Last Name Ray Referring Provider Specialty Family [facility] Referred Organization [facility] Endocrinology Referred Provider Akash Hendrix Referred Address [address] ,[place],[address] Referred Provider Specialty Nurse Eber chavarria Referral Priority Routine General Notes Aylin Muñoz 03:32:36 PM >received today, sent p2p Reason *FU 02/21 Schedule with Ellen Villanueva for possible lumbar injections. Diagnosis 1 Primary osteoarthrit is of left knee (M17.12) Diagnosis 2 Spondylolisthesis of lumbar region (M43.16) Referral Organization [facility] Referring Provider First Name Zena Referring Provider Last Name Ricky Referring Provider Specialty Nurse Tj carrasquillo Referred Organization [facility] Referred Provider Eric Villanueva Referred Address [address],[place],[address] Referred Provider Specialty Pain Medicin e Referral [...] kidney disease) stage 3, GFR 30-59 ml/min Chief Complaint OP SP LT KNEE PAIN R EQUESTED INJECTION M17.12 - Unilateral primary osteoarthritis, left k 3 MONTH FOLLOW UP F/U 3 MONTHS LUMBAR EPIDURAL STEROID INJECTION Reason for Visit Left knee pain Primary osteoarthritis of left knee Anemia CKD (chronic kidney disease) stage 3, GFR 30-59 ml/min Type 2 diabetes mellitus with hyperglycemia Chronic pain Degenerative disc disease, lumbar Other spondylosis with radiculopathy, lumbar region Chief Complaint F/U 3 MONTHS LUMBAR EPIDURAL STEROID INJECTION OP SP LT KNEE PAIN REQ INJECTION Reason for Visit Chronic pain Degenerative disc disease, lumbar Other spondylosis with radiculopathy, lumbar region Left knee pain Primary osteoarthritis of left knee Chief Complaint F/U 3 MONTHS LUMBAR EPIDURAL STEROID INJECTION OP SP LT KNEE PAIN REQ INJECTION BACK PAIN Reason for Visit Chronic pain Degenerative disc disease, lumbar Other spondylosis with radiculopathy, lumbar region Left knee pain Primary osteoarthritis of left knee Chronic pain Degenerative disc disease, lumbar Other spondylosis with radiculopathy, lumbar region Chief Complaint F/U 3 MONTHS LUMBAR EPIDURAL STEROID INJECTION OP SP LT KNEE PAIN REQ INJECTION BACK PAIN RENAL CKD 3 Reason for Visit Chronic pain Degenerative disc disease, lumbar Other spondylosis with radiculopathy, lumbar region Left knee pain Primary osteoarthritis of left knee Chronic pain Degenerative disc disease, lumbar Other spondylosis with radiculopathy, lumbar region Anemia of renal disease CKD (chronic kidney disease) stage 3, GFR 30-59 ml/min [id number] Secondary hyperparathyroidism Type 2 diabetes mellitus with diabetic chronic kidney disease Chief Complaint F/U 3 MONTHS LUMBAR EPIDURAL STEROID INJECTION OP SP LT KNEE PAIN REQ INJECTION BACK PAIN RENAL CKD 3 Back Pain Back Pain Reason for Visit Chronic pain Degenerative disc disease, lumbar Other spondylosis with radiculopathy, lumbar region Left knee pain Primary osteoarthritis of left knee Chronic pain Degenerative disc disease, lumbar Other spondylosis with radiculopathy, lumbar region Anemia of renal disease CKD (chronic kidney disease) stage 3, GFR 30-59 ml/min [id number] Secondary hyperparathyroidism Type 2 diabetes mellitus with diabetic chronic kidney disease Chief Complaint F/U 3 MONTHS LUMBAR EPIDURAL STEROID INJECTION OP SP LT KNEE PAIN REQ INJECTION BACK PAIN RENAL CKD 3 Back Pain Back Pain 4 month follow up Reason for Visit Chronic pain Degenerative disc disease, lumbar Other spondylosis with radiculopathy, lumbar region Left knee pain Primary osteoarthritis of left knee Chronic pain Degenerative disc disease, lumbar Other spondylosis with radiculopathy, lumbar region Anemia of renal disease CKD (chronic kidney disease) stage 3, GFR 30-59 ml/min [id number] Secondary hyperparathyroidism Type 2 diabetes mellitus with diabetic chronic kidney disease Chief Complaint Admit Date 4 month follow up April 06, 2024 1 1:26am 3 MO F/U LUMB EPI June 30, 2024 2: 41pm Reason for Visit Admit Date Anemia April 06, 2024 1 1:26am Chronic depression April 06, 2024 1 1:26am CKD (chronic kidney disease) stage 3, GF R 30-59 ml/min April 06, 2024 11:26am Type 2 diabetes mellitus with hyperglyce rehana April 06, 2024 11:26am Chronic pain June 30, 2024 2: 41pm Degenerative disc disease, lumbar Januar y 2024 2:41pm Spondylosis without myelopat hy or radiculopathy, lumbosacral region June 30, 2024 2:41pm Chief Complaint Admit Date 3 MO F/U LUMB EPI June 30, 2024 2: 41pm OP SP LT WRIST PAIN July 07, 2024 1 :40pm Reason for Visit Admit Date Chronic pain June 30, 2024 2: 41pm Degenerative disc disease, lumbar Januar y 2024 2:41pm Spondylosis without myelopat hy or radiculopathy, lumbosacral region June 30, 2024 2:41pm Left carpal tunnel syndrome June 1:40pm Right hand pain July 07, 2024 1 :40pm Trigger finger, right index finger Janua 2024 1:40pm Chief Complaint Admit Date 3 MO F/U LUMB EPI June 30, 2024 2: 41pm OP SP LT WRIST PAIN July 07, 2024 1 :40pm 3 month f/u-HIGH RISK July 08, 2024 11:25am Family History Relationship Condition Age at Onset Recorded Date/T [...] Unknown Not Specified Unknown Diabetes mellitus Unknown Relationship Condition Age at Onset Recorded Date/T manda mother Diabetes mellitus Unknown Cerebrovascular accident (CVA) Unknown Congestive heart failure Unknown father Diabetes mellitus Unknown Malignant neoplasm Unknown History of stroke Unknown Unknown mother Unknown Diabetes mellitus Unknown Advance Directives Advance Directive Response Recorded Date/ Time Advance Directives No August 02, 2022 3:31pm Advance Directive Response Recorded Date/ Time Advance Directives No August 02, 2022 4:31pm Summary Purpose Additional Source Comments REASON FOR VISIT (unrecogniz ed section and content) Reason Comments Suspicious Skin Lesion Care Teams (unrecognized sec tion and content) Team Status: Active Member Role Status Dates Garrison Bell MD Primary Care Provider Active Team Status: Inactive Member Role Status Dates Garrison Bell MD Primary Care Provide r, Attending Provider Active Start: April 06, 2024 End: April 06, 2024 Team Status: Inactive Member Role Status Dates Garrison Bell MD Primary Care Provider Active Start: June 30, 2024 End: June 30, 2024 Eric Villanueva MD Attending Provider Active Sta rt: June 30, 2024 End: June 30, 2024 Team Status: Active Member Role Status Dates [...] Care Provider Active Start: November 04, 2023 Placido Rosales Attending Provider Active Start: November 04, 2023 Team Status: Active Member Role Status Dates Garrison Bell MD Primary Care Provider Active Start: November 29, 2023 Ehab Gege Rosales Attending Provider Active Start: November 29, 2023 Team Status: Inactive Member Role Status Dates Garrison Bell MD Primary Care Provide r, Attending Provider Active Start: December 04, 2023 End: December 04, 2023 Team Status: Active Member Role Status Dates Garrison Bell MD Primary Care Provide r, Attending Provider Active Start: December 09, 2023 Team Status: Active Member Role Status Dates Garrison Bell MD Primary Care Provider Active Start: December 30, 2023 Ehab Gege Rosales Attending Provider Active Start: December 30, 2023 Team Status: Active Member Role Status Dates Garrison Bell MD Primary Care Provider Active Start: January 09, 2024 Ehab A Melissa Attending Provider Active Start: January 09, 2024 Team Status: Inactive Member Role Status Dates Garrison Bell MD Primary Care Provider Active Start: January 15, 2024 End: January 15, 2024 Eric Villanueva MD Attending Provider Active Sta rt: January 15, 2024 End: January 15, 2024 Team Status: Inactive Member Role Status Dates [...] Provider Active Start: October 17, 2023 Zena García NP-Khalif Attending Provider Active Start: October 17, 2023 Team Status: Inactive Member Role Status Dates Garrison Bell MD Primary Care Provider Active Start: March 10, 2024 End: March 10, 2024 ANGELO Miles Attending Provider Active Start: March 10, 2024 End: March 10, 2024 Team Status: Inactive Member Role Status Dates Garrison Bell MD Primary Care Provider Active Start: March 12, 2024 End: March 12, 2024 Eric Villanueva MD Attending Provider Active Sta rt: March 12, 2024 End: March 12, 2024 Team Status: Active Member Role Status Dates Garrison Bell MD Primary Care Provider Active Start: March 16, 2024 Placido Rosales Attending Provider Active Start: March 16, 2024 Team Status: Inactive Member Role Status Dates Garrison Bell MD Primary Care Provide r, Referring Provider Active Start: March 23, 2024 End: March 23, 2024 Lexus Brush MD Attending Provider Active Start : March 23, 2024 End: March 23, 2024 Team Status: Inactive Member Role Status Dates Garrison Bell MD Primary Care Provider Active Start: March 24, 2024 End: March 24, 2024 Eric Villanueva MD Attending Provider Active Sta rt: March 24, 2024 End: March 24, 2024 Team Status: Active Member Role Status Dates Garrison Bell MD Primary Care Provider Active Start: March 24, 2024 Eric Villanueva MD Attending Provider, Other Provider Active Start: March 24, 2024 Orthopedic Surgeon Relationship Specialty Start Date End Date Garrison Bell MD [address] [place] [phone] PCP - General Family Medicine 09/16/23 Orthopedic Surgeon Relationship Specialty Start Date End Date Garrison Bell MD [address] [place] [address] [place] [phone] PCP - General Family Medicine 09/16/23 Team Status: Inactive Member Role Status Dates Garrison Bell MD Primary Care Provider Active Start: July 07, 2024 End: July 07, 2024 Alka Hankins MD Attending Provider Active Start: July 07, 2024 End: July 07, 2024 Team Status: Inactive Member Role Status Dates Garrison Bell MD Primary Care Provide r, Attending Provider Active Start: July 08, 2024 End: July 08, 2024 INFORMATION SOURCE (unrecogn ized section and content) DATE CREATED AUTHOR 08/24/2022 [facility] DATE CREATED AUTHOR AUTHOR'S ORGANIZ ATION 11/08/2022 [facility] DATE CREATED AUTHOR AUTHOR'S ORGANIZ ATION 03/18/2024 [facility] DATE CREATED AUTHOR AUTHOR'S ORGANIZ ATION 03/20/2024 [facility] DATE CREATED AUTHOR AUTHOR'S ORGANIZ ATION 03/25/2024 [facility] Goals (unrecognized section and content) [...] BE BASED ON THE PRIMARY CLINICAL RECORDS. [employer] provides no warranty or guarantee of the accuracy or completeness of information in this document.
--- NOTE | 2024-09-04 20:22 | ECG_ITS ---
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 Measurements Intervals [place] Rate: 76 P: 24 ID: [id number] QRS: -34 QRSD: 90 T: 62 QT: 382 QTc: 412 Interpretive Statements 1100 Sinus rhythm 7200 Abnormal left axis deviation 9130 borderline ECG Compared to ECG 08/16/2023 08:50:44 No significant changes Electronically Signed On 09-04-2024 20:55:30 EDT by JOSE BAUGH M.D.
[2024-09-04 20:24] LABS: Glucometer 151 mg/dL (74-106)
--- NOTE | 2024-09-04 20:24 | ED_ITS ---
HPI HPI - General Adult General Chief complaint: Dizziness Stated complaint: sob, weakness, nausea, dizziness Time Seen by Provider: 09/04/24 20:11 Source: patient and family Mode of arrival: Wheelchair Limitations: no limitations History of Present Illness HPI narrative: 73-year-old female presents for dizziness. She has been feeling this way for about 3 days and she states at home she was quite sweaty today. She had a near syncopal episode tonight while she was sitting, she did not pass out completely. She has not had any chest pain at any point. No fever but she has had a cough for about a month and she is coughing up some milky phlegm. She was constipated but that resolved after taking a laxative. Related Data Home Medications ?Medication ?Instructions ?Recorded ?Confirmed aspirin 81 mg tablet,delayed 81 mg PO DAILY 08/16/23 09/04/24 release (Adult Aspirin Regimen) atorvastatin 80 mg tablet 80 mg PO DAILY 08/16/23 09/04/24 carvedilol 6.25 mg tablet 12.5 mg PO Q12H 08/16/23 09/04/24 cholecalciferol (vitamin D3) 125 125 mcg PO DAILY 08/16/23 09/04/24 mcg (5,000 unit) tablet (Vitamin D3) ezetimibe 10 mg tablet 10 mg PO DAILY 08/16/23 09/04/24 fexofenadine-pseudoephedrine ER 1 tab PO DAILY 08/16/23 09/04/24 180 mg-240 mg tablet,ext.release 24 hr (Nevaeh-D 24 Hour) glipizide 10 mg tablet 5 mg PO DAILY 08/16/23 09/04/24 furosemide 20 mg tablet (Lasix) 10 mg PO .qod 09/04/24 09/04/24 insulin human U-100 NPH-regulr 30 unit subcut QAM 09/04/24 09/04/24 70-30 mix 100 unit/mL subcutaneous susp (Humulin 70/30 U-100 Insulin) Allergies Allergy/AdvReac Type Severity Reaction Status Date / Time oxycodone (From Percocet) AdvReac Mild Nausea Verified 09/04/24 20:14 Opioid HPI Opioid Management Most Recent Opioid Data: No Data to Display Review of Systems ROS Narrative A ten point review of systems is negative except as noted above. [facility] History (Updated 09/04/24 @ 22:10 by Everette Fraga MD) RSV (respiratory syncytial virus infection) ?B33.8 - Other specified viral diseases (ICD-10) Hyperlipidemia ?E78.5 - Hyperlipidemia, unspecified (ICD-10) Hypertension ?I10 - Essential (primary) hypertension (ICD-10) Diabetes ?E11.9 - Type 2 diabetes mellitus without complications (ICD-10) Surgical History (Updated 08/16/23 @ 09:36 by Linette Maldonado) H/O right heart catheterization ?Z98.890 - Other specified postprocedural states (ICD-10) Social History Smoking status: Never smoker Little interest or pleasure in doing things: not at all Feeling down, depressed, or hopeless: not at all Exam Narrative Exam Narrative: Nurses note and vital signs reviewed and patient is not hypoxic. General: The patient appears well and in no apparent distress. Patient is resting comfortably on cart. Skin: Warm, dry, no pallor noted. There is no rash noted. Head: Normocephalic, atraumatic Eye: Normal conjunctiva, no drainage Ears, Nose, Mouth, and Throat: oral mucosa is moist. Nares patent. Cardiovascular: Regular Rate and Rhythm Respiratory: Patient is in no distress, no accessory muscle use, lungs are clear to auscultation, no wheezing, rales or rhonchi Back: non-tender, no CVA tenderness bilaterally to percussion. GI: Soft and nontender Musculoskeletal: The patient has no evidence of calf tenderness, no pitting edema, symmetrical pulses noted bilaterally Neurological: A&O, normal speech Psychiatric: Cooperative Constitutional Vital Signs, click to edit/add: Last Vital Signs Temp 98.3 F 09/04/24 20:14 Pulse 83 09/04/24 21:47 Resp 22 H 09/04/24 21:30 BP 137/72 09/04/24 20:16 Pulse Ox 95 09/04/24 20:24 O2 Del Method Room Air 09/04/24 20:14 Course Vital Signs Vital signs: Vital Signs Temperature 98.3 F 09/04/24 20:14 Pulse Rate 82 09/04/24 20:14 Respiratory Rate 20 09/04/24 20:14 Blood Pressure 137/72 09/04/24 20:14 Pulse Oximetry 94 L 09/04/24 20:14 Oxygen Delivery Method Room Air 09/04/24 20:14 Temperature 98.3 F 09/04/24 20:14 Pulse Rate 83 09/04/24 21:47 Respiratory Rate 22 H 09/04/24 21:30 Blood Pressure 137/72 09/04/24 20:16 Pulse Oximetry 95 09/04/24 20:24 Oxygen Delivery Method Room Air 09/04/24 20:14 Medical Decision Making MDM Narrative Medical decision making narrative: UTI is identified with greater than 100 white cells per high-power field. Creatinine is also slightly elevated above her baseline. Cultures were obtained and she was given IV Rocephin and IV fluids and she is being admitted for observation. Treatment diagnosis and disposition were discussed with the patient and her family. Differential Diagnosis Differential Diagnosis: UTI, cardiac dysrhythmia, dehydration, anemia Lab Data Lab results reviewed: Yes I reviewed the patient's lab results Labs: Lab Results 09/04/24 09/04/24 09/04/24 Range/Units 20:23 20:30 20:42 WBC 9.3 (4.0-11.0) 10^3/uL RBC 4.21 (4.20-5.40) 10^6/uL Hgb 12.8 (12.0-16.0) g/dL Hct 39.3 (36.0-48.0) % MCV 93.3 (81.0-99.0) fL MCH 30.4 (26.7-34.0) pg MCHC 32.6 (29.9-35.2) g/dL RDW 12.3 (11.0-15.0) % Plt Count 220 (150-450) 10^3/uL MPV 10.3 (9.5-13.5) fL Neut % (Auto) 70.4 (43.0-75.0) % Lymph % (Auto) 20.8 (20.5-60.0) % [place] % (Auto) 5.6 (1.7-12.0) % Eos % (Auto) 2.5 (0.9-7.0) % Baso % (Auto) 0.5 (0.2-2.0) % Neut # (Auto) 6.6 H (1.4-6.5) 10^3/uL Lymph # (Auto) 1.9 (1.2-3.8) 10^3/uL [place] # (Auto) 0.5 (0.3-0.8) 10^3/uL Eos # (Auto) 0.2 (0.0-0.7) 10^3/uL Baso # (Auto) 0.1 (0.0-0.1) 10^3/uL Abs Immat Gran (auto) 0.02 (0.00-0.03) 10^3/uL Imm/Tot Granulo (auto) 0.2 (0.0-0.5) % Sodium 140 (136-145) mmol/L Potassium 4.7 (3.5-5.1) mmol/L Chloride 103 (98-107) mmol/L Carbon Dioxide 27.7 (21.0-32.0) mmol/L Anion Gap 14.0 BUN 29.0 H (7.0-18.0) mg/dL Creatinine 1.70 H (0.55-1.02) mg/dL Est GFR ( Amer) 36 L (>=60 mL/min/1.73m^2) Est GFR (Non-Af Amer) 29 L (>=60 mL/min/1.73m^2) BUN/Creatinine Ratio 17.1 Glucose 147 H (74-106) mg/dL Calcium 9.2 (8.5-10.1) mg/dL Troponin I High Sens 13.5 (4.0-51.3) pg/mL Urine Color (YELLOW) Urine Clarity (CLEAR) Urine pH (5.0-9.0) Ur Specific [place] (1.005-1.025) Urine Protein (NEG/TRACE) mg/dL Urine Glucose (UA) (NEGATIVE) mg/dL Urine Ketones (NEGATIVE) mg/dL Urine Occult Blood (NEGATIVE) Urine Nitrite (NEGATIVE) Urine Bilirubin (NEGATIVE) Urine Urobilinogen (0.2-1.0) EU/dL Ur Leukocyte Esterase (NEGATIVE) Urine RBC (0-2) #/HPF Urine WBC (NONE SEEN) #/HPF Ur Squamous Epith Cells (NONE/RARE) #/LPF Urine Crystals (None Seen) #/HPF Urine Bacteria (NONE SEEN) #/HPF Urine Casts (NONE SEEN) #/LPF Hyaline Casts Urine Mucus (NONE SEEN) Ur Culture Indicated? Influenza Type A Ag Negative Influenza Type B Ag Negative SARS-CoV-2 Ag (CV2AG) Negative (NEGATIVE) POC Glucose 151 H (74-106) mg/dL 09/04/24 Range/Units 21:35 WBC (4.0-11.0) 10^3/uL RBC (4.20-5.40) 10^6/uL Hgb (12.0-16.0) g/dL Hct (36.0-48.0) % MCV (81.0-99.0) fL MCH (26.7-34.0) pg MCHC (29.9-35.2) g/dL RDW (11.0-15.0) % Plt Count (150-450) 10^3/uL MPV (9.5-13.5) fL Neut % (Auto) (43.0-75.0) % Lymph % (Auto) (20.5-60.0) % [place] % (Auto) (1.7-12.0) % Eos % (Auto) (0.9-7.0) % Baso % (Auto) (0.2-2.0) % Neut # (Auto) (1.4-6.5) 10^3/uL Lymph # (Auto) (1.2-3.8) 10^3/uL [place] # (Auto) (0.3-0.8) 10^3/uL Eos # (Auto) (0.0-0.7) 10^3/uL Baso # (Auto) (0.0-0.1) 10^3/uL Abs Immat Gran (auto) (0.00-0.03) 10^3/uL Imm/Tot Granulo (auto) (0.0-0.5) % Sodium (136-145) mmol/L Potassium (3.5-5.1) mmol/L Chloride (98-107) mmol/L Carbon Dioxide (21.0-32.0) mmol/L Anion Gap BUN (7.0-18.0) mg/dL Creatinine (0.55-1.02) mg/dL Est GFR ( Amer) (>=60 mL/min/1.73m^2) Est GFR (Non-Af Amer) (>=60 mL/min/1.73m^2) BUN/Creatinine Ratio Glucose (74-106) mg/dL Calcium (8.5-10.1) mg/dL Troponin I High Sens (4.0-51.3) pg/mL Urine Color Yellow (YELLOW) Urine Clarity Cloudy A (CLEAR) Urine pH 5.5 (5.0-9.0) Ur Specific [place] >=1.030 A (1.005-1.025) Urine Protein 100 A (NEG/TRACE) mg/dL Urine Glucose (UA) Negative (NEGATIVE) mg/dL Urine Ketones Trace A (NEGATIVE) mg/dL Urine Occult Blood Moderate A (NEGATIVE) Urine Nitrite Negative (NEGATIVE) Urine Bilirubin Small A (NEGATIVE) Urine Urobilinogen 0.2 (0.2-1.0) EU/dL Ur Leukocyte Esterase Moderate A (NEGATIVE) Urine RBC 10-20 A (0-2) #/HPF Urine WBC >100 A (NONE SEEN) #/HPF Ur Squamous Epith Cells Many A (NONE/RARE) #/LPF Urine Crystals None seen (None Seen) #/HPF Urine Bacteria Large A (NONE SEEN) #/HPF Urine Casts Seen A (NONE SEEN) #/LPF Hyaline Casts Few Urine Mucus Small A (NONE SEEN) Ur Culture Indicated? Yes-[facility] [place] Influenza Type A Ag Influenza Type B Ag SARS-CoV-2 Ag (CV2AG) (NEGATIVE) POC Glucose (74-106) mg/dL Imaging Data Chest x-ray, CT brain: Radiologist's impression: Chest x-ray: Slight prominence to the heart size, mild hypoinflated lungs, no edema or pneumonia, no bronchial inflammation ECG Data Attestation: I personally reviewed and interpreted this ECG as follows: (EKG on my interpretation shows normal sinus rhythm with rate of 76 and no acute change) Discharge Plan Discharge Chief Complaint: Dizziness Clinical Impression: Urinary tract infection Patient Disposition: Admitted as Observation Time of Disposition Decision: 22:10 Condition: Good
[2024-09-04] MEDS: 0.9 % SODIUM CHLORIDE 500 ML IV (20:46)
[2024-09-04 20:50] LABS: Basophils Absolute Auto 0.1 10^3/uL (0.0-0.1); Basophils Percent Auto 0.5 % (0.2-2.0); Eosinophils Absolute Auto 0.2 10^3/uL (0.0-0.7); Eosinophils Percent Auto 2.5 % (0.9-7.0); Hematocrit 39.3 % (36.0-48.0); Hemoglobin 12.8 g/dL (12.0-16.0); Immature Granulocytes Abs Auto 0.02 10^3/uL (0.00-0.03); Immature Granulocytes Pct Auto 0.2 % (0.0-0.5); Lymphocytes Absolute Auto 1.9 10^3/uL (1.2-3.8); Lymphocytes Percent Auto 20.8 % (20.5-60.0); Mean Corpuscular HGB Conc 32.6 g/dL (29.9-35.2); Mean Corpuscular Hemoglobin 30.4 pg (26.7-34.0); Mean Corpuscular Volume 93.3 fL (81.0-99.0); Mean Platelet Volume 10.3 fL (9.5-13.5); Monocytes Absolute Auto 0.5 10^3/uL (0.3-0.8); Monocytes Percent Auto 5.6 % (1.7-12.0); Neutrophils Absolute Auto 6.6 10^3/uL (1.4-6.5); Neutrophils Percent Auto 70.4 % (43.0-75.0); Platelet Count 220 10^3/uL (150-450); Red Blood Count 4.21 10^6/uL (4.20-5.40); Red Cell Distribution Width 12.3 % (11.0-15.0); White Blood Count 9.3 10^3/uL (4.0-11.0)
[2024-09-04 21:01] LABS: Influenza Virus A Antigen Negative; Influenza Virus B Antigen Negative; Internal Control Within Normal Limits; SARS-CoV-2 Ag NEGATIVE (NEGATIVE)
[2024-09-04 21:06] LABS: BUN Creatinine Ratio 17.1; Calcium 9.2 mg/dL (8.5-10.1); Carbon Dioxide 27.7 mmol/L (21.0-32.0); Chloride 103 mmol/L (98-107); Estimated GFR (African America 36 (>=60 mL/min/1.73m^2); Estimated GFR (Non-African Ame 29 (>=60 mL/min/1.73m^2); Glucose 147 mg/dL (74-106); Potassium 4.7 mmol/L (3.5-5.1); Sodium 140 mmol/L (136-145); Troponin I High Sensitivity 13.5 pg/mL (4.0-51.3)
[2024-09-04 21:41] LABS: Bilirubin Urine SMALL (NEGATIVE); Blood Urine MODERATE (NEGATIVE); Clarity Urine CLOUDY (CLEAR); Color Urine YELLOW (YELLOW); Glucose Urine UA NEGATIVE (NEGATIVE); Ketones Urine TRACE mg/dL (NEGATIVE); Leukocyte Esterase Urine MODERATE (NEGATIVE); Nitrite Urine NEGATIVE (NEGATIVE); Protein Urine 100 mg/dL (NEG/TRACE); Specific Gravity Urine >=1.030 (1.005-1.025); Urobilinogen Urine 0.2 EU/dL (0.2-1.0); pH Urine 5.5 (5.0-9.0)
[2024-09-04 21:53] LABS: Bacteria Urine LARGE #/HPF (NONE SEEN); Cast Seen? SEEN #/LPF (NONE SEEN); Crystals Seen? None Seen #/HPF (None Seen); Hyaline Casts Urine FEW; Mucus Urine SMALL (NONE SEEN); Squamous Epithelial Cell Urine MANY #/LPF (NONE/RARE); Urine Culture Indicated YES-FRMC; WBC Urine >100 #/HPF (NONE SEEN)
[2024-09-04] MEDS: ACETAMINOPHEN 500 MG TABLET PO (23:14)
[2024-09-04] MEDS: CEFTRIAXONE 1,000 MG in 0.9 % SODIUM CHLORIDE 50 ML 100 MG IV (23:14)
--- OUTSIDE RECORDS SUMMARY | 2024-09-04 23:51 | XMS_ITS | CCD ---
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 Name Role Phone Zena García Unavailable Jazz Nance Unavailable Eric Villanueva Unavailable MD Garrison Bell Primary Care Provider MD Eric Villanueva Attending Provider [phone] GARRISON BELL Primary Care Physician ZENA POTTER Attending Unavailable Garrison Bell Unavailable Alka Hankins Unavailable MD Garrison Bell Primary Care Provider [phone] MD Alka Hankins Attending Provider [phone] MD Eric Villanueva Attending Provider ANGELO García Attending Provider [phone] DR GARRISON BELL Admitting Unavailable RAY, DR GARRISON Jefferson Primary Care Unavailable MARSHALL, DR ANN MARIE Gibbons Consulting Unavailable RAY, [...] Provider MD Garrison Bell Primary Care Provider [phone] MD Eric Villanueva Attending Provider MD Garrison Bell Primary Care Provider [phone] MD Eric Villanueva Attending Provider ANGELO García Attending Provider [phone] MD Garrison Bell Primary Care Provider [phone] [place] Attending Unavailable [place] Referring [...] Allergy 12-04-19 24 dizziness, and stomach issues [facility] Angiotensin Converting Enzyme (HIRAM) Inhibitors (1 source) Lisinopril Drug Allergy 12-04-19 24 [facility] metFORMIN (1 source) metFORMIN Drug Allergy 12-04-19 24 [facility] Nitrofurantoin (1 source) Nitrofurantoin Drug Allergy 12-04-19 [facility] Opioid Agonists (2 sources) oxyCODONE Drug Allergy 12-04-19 24 constipation, dizziness, and stomach issues, Vomiting [facility] (20 sources) Acetaminophen / oxyCODONE; Translations: [acetaminophen-ox ycodone] Drug Allergy 01-21-20 19 Unknown (qualifier value) [facility] (19 sources) oxyCODONE; Translations: [oxycodone] Drug Allergy 03-20-20 22 Vomiting, constipation, constipation, dizziness, and stomach issues [facility] Comment on above: Onset Date: 01/21/20 19 (20 sources) Propoxyphene; Translations: [propoxyphene] Drug Allergy 03-20-20 22 GI intolerance, Unknown [facility] (2 sources) acetaminophen / propoxyphene; Translations: [acetaminophen-pr opoxyphene] Drug Allergy Unknown (qualifier value) [facility] (2 sources) Acetaminophen / oxyCODONE; Translations: [Percocet] Drug Allergy 07-28-19 21 [facility] (20 sources) Lisinopril Drug Allergy 01-20-20 19 Unknown, [facility] Comment on above: Onset Date: 01/20/20 19 (20 sources) metFORMIN Drug Allergy 01-20-20 19 [facility] Comment on above: Onset Date: 01/20/20 19 (11 sources) NITROFURANTOIN, MACROCRYSTALS / Nitrofurantoin, Monohydrate Drug Allergy Unknown [facility] (3 sources) Allergies Reconciled Propensity to adverse reactions Unknown [facility] (3 sources) patient allergy list reviewed by nurse or physicia Propensity to adverse reactions 01-21-20 Comment:Done [facility] Other (11 sources) Darvocet A500 *ANALGESICS - OPIOID* Propensity to adverse reactions 01-21-20 19 Unknown [facility] (15 sources) Acetaminophen Drug Allergy 10-10-19 dizziness, and stomach issues [facility] Comment on above: Onset Date: 01/21/20 19 (15 sources) Nitrofurantoin Drug Allergy 10-10-19 24 [facility] (14 sources) Darvocet A500 *ANALGESICS - OP Allergy to substance 08-15-19 [facility] Comment on above: Free Text Allergy: D arvocet A500 *ANALGESICS - OPIOID*; Onset Date: 01/20/2019 (3 sources) Acetaminophen / oxyCODONE; Translations: [OXYCODONE-ACETAM INOPHEN] Drug Allergy 09-07-19 GI intolerance, Rash, Unknown [facility] (1 source) ADHESIVE TAPE-SILICONES; Translations: [ADHESIVE TAPE-SILICONES] Propensity to adverse reactions to drug (disorder) 08-04-19 03 [facility] (1 source) PROPOXYPHENE N-ACETAMINOPHEN; Translations: [PROPOXYPHENE N-ACETAMINOPHEN] Propensity to adverse reactions to drug (disorder) 09-07-19 21 [facility] (2 sources) Lisinopril Allergy to substance 03-10-20 [facility] (2 sources) Wound Dressing Adhesive Drug Intolerance 08-04-19 03 [facility] Medications Current Medications Medication Drug Class(es) Dates Sig (Normalized) Sig (Original) [id number] 200 actuat albuterol 0.09 mg/actuat metered dose [...] Blood-Glucose Meter (True Me trix Glucose Meter) [facility] (9 sources) Start: 12-11-2023 Blood-Glucose Meter (True Metrix Glucose Meter) [facility] Active 0 .Route December 10, 2023 11:00pm to test blood sugar daily Start: 12-11-2023 Blood-Glucose Meter (True Metrix Glucose Meter) [facility] Active 0 .Route December 11, 2023 12:00am [...] MonThu, # 42.5 gm, Refills(s) 3, Pharmacy: [facility] 536, 160, cm, 08/16/21 15:10:00 EST, Height/Length [...] Daily February 12, 2023 12:00am insulin NPH-insu tori regular (NovoLIN) (70-30) 100 UNIT/ML injection Inject [...] 08-28-2022 take 1 capsule by mo [facility] every twelve hours Lyrica 75 MG [...] disease (4 sources) Atherosclerotic heart disease of false pass coronary artery without angina pectoris; Translations: [Unstable [...] Long-term current use of insulin; Translations: [intermediate designer (current) use of insulin] Episodic Other aftercare (2 sources) intermediate designer (current) use of insulin Episodic Other circulatory [...] te Episodic/Chronic Other aftercare (1 source) Other manager long term care (current) drug therapy; Translations: [OTH 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 Amount of lidocaine used: 1 cc StreamOceancar e Type of biopsy: tangential Informed consent: [...] taken. Amount of lidocaine used: 3 cc [employer] e Estimated glomerular filtrat ion rate (GFR) non- Americanon 03-16-2024 GFR/1.73 sq M.predicted among non-blacks MDRD (S/P/Bld) [Vol rate/Area] 43 mL/min/{1.73_m2} Low >=60 [facility] Laboratory - Chemistry and C hemistry - challengeon 03-16-2024 Calcium [Mass/Vol] 9.2 mg/dL 8.5-10.1 [facility] Chloride [Moles/Vol] 102 mmol/L 98-107 [facility] CO2 [Moles/Vol] 27.5 mmol/L 21.0-32.0 [facility] Creatinine [Mass/Vol] 1.23 mg/dL High 0.55-1.02 [facility] GFR/1.73 sq M.predicted MDRD (S/P/Bld) [Vol rate/Area] 52 mL/min/{1.73_m2} Low >=60 [facility] Glucose [Mass/Vol] 240 mg/dL High 74-106 [facility] Natriuretic peptide B (Bld) [Mass/Vol] 435.0 pg/mL <=900.0 [facility] Potassium [Moles/Vol] 4.2 mmol/L 3.5-5.1 [facility] Sodium [Moles/Vol] 136 mmol/L 136-145 [facility] Urea nitrogen [Mass/Vol] 37.0 mg/dL High 7.0-18.0 [facility] Urea nitrogen/Creatinine [Mass ratio] 30.1 mg/mg [facility] Office Visiton 03-16-2024 Follow-up visit [id number] Libra Noonan 1950 F Date Provider Department Center 03/16/2024 PLACIDO PECK CARD [facility] Family History Problem Relation Age of Onset Rheumatic fever Mother Heart failure Mother Stroke Mother Other Mother Comments: She is unsure if this was a defibrillator Stroke Father Family Status - Relation Status Age at Mother Father Level of Service:69410 [place] OFFICE/OUTPATIENT ESTABLISHED MOD MDM 30 MIN [facility] Serum or plasma anion gap de terminationon 03-16-2024 Anion gap [Moles/Vol] 10.7 mmol/L [facility] 36on 03-09-2024 36 Patient's daughter [...] wonders if she needs to see a blender machine operator to check her lung function. Maybe she will qualify for cardiac rehab? Daughter DOES NOT WANT US TO TELL HER MOTHER THAT SHE SPOKE WITH US. [facility] 36on 01-10-2024 36 Regarding BMP from 01/09/2024: MD Lorenza Atkinson MA Please let her know her s.cr is better. Would recommend staying on the current dose of diuretics Thanks Spoke with patient and informed her of message per Dr. Rosales. She will continue furosemide 10mg every other day. [facility] Estimated glomerular filtrat ion rate (GFR) non- Americanon 01-09-2024 GFR/1.73 sq M.predicted among non-blacks MDRD (S/P/Bld) [Vol rate/Area] 41 mL/min/{1.73_m2} Low >=60 [facility] Laboratory - Chemistry and C hemistry - challengeon 01-09-2024 Calcium [Mass/Vol] 8.9 mg/dL 8.5-10.1 [facility] Chloride [Moles/Vol] 107 mmol/L 98-107 [facility] CO2 [Moles/Vol] 28.8 mmol/L 21.0-32.0 [facility] Creatinine [Mass/Vol] 1.28 mg/dL High 0.55-1.02 [facility] GFR/1.73 sq M.predicted MDRD (S/P/Bld) [Vol rate/Area] 50 mL/min/{1.73_m2} Low >=60 [facility] Glucose [Mass/Vol] 96 mg/dL 74-106 [facility] Potassium [Moles/Vol] 4.8 mmol/L 3.5-5.1 [facility] Sodium [Moles/Vol] 143 mmol/L 136-145 [facility] Urea nitrogen [Mass/Vol] 29.0 mg/dL High 7.0-18.0 [facility] Urea nitrogen/Creatinine [Mass ratio] 22.7 mg/mg [facility] Serum or plasma anion gap de termination01-09-2024 Anion gap [Moles/Vol] 12.0 mmol/L [facility] 2901-02-2024 29 Addended by: LORENZA DUTTON on: 01/02/2024 09:12 AM Modules accepted: Orders [facility] 01-02-2024 36 Patient LM on our VM confirming she got my message. She will have repeat BMP next week. Order faxed. [facility] 01-01-2024 36 LM for patient timmy flanagan her to return my call. [facility] 36 Regarding BMP from 12/30/2023: MD Lorenza Atkinson MA Please have her decrease lasix to 10 mg daily and repeat BMP in 1 week Thanks Spoke with patient and she is already taking 10mg daily. Is there something else you'd like or should she stay on this dose? Please advise. Thanks. [facility] Telephoneon 01-01-2024 Telephone [id number] SaranLibra Carlson 1950 F Date Provider Department Center 01/01/2024 Baljinder8-LORENZA DUTTON Corry Garth Family History Problem Relation Age of Onset Rheumatic fever Mother Heart failure Mother Stroke Mother Other Mother Comments: She is unsure if this was a defibrillator Stroke Father Family Status - Relation Status Age at Mother Father [facility] Estimated glomerular filtrat ion rate (GFR) non- Americanon 12-30-2023 GFR/1.73 sq M.predicted among non-blacks MDRD (S/P/Bld) [Vol rate/Area] 37 mL/min/{1.73_m2} Low >=60 [facility] Laboratory - Chemistry and C hemistry - challengeon 12-30-2023 Calcium [Mass/Vol] 8.7 mg/dL 8.5-10.1 [facility] Chloride [Moles/Vol] 107 mmol/L 98-107 [facility] CO2 [Moles/Vol] 26.9 mmol/L 21.0-32.0 [facility] Creatinine [Mass/Vol] 1.39 mg/dL High 0.55-1.02 [facility] GFR/1.73 sq M.predicted MDRD (S/P/Bld) [Vol rate/Area] 45 mL/min/{1.73_m2} Low >=60 [facility] Glucose [Mass/Vol] 193 mg/dL High 74-106 [facility] Potassium [Moles/Vol] 4.5 mmol/L 3.5-5.1 [facility] Sodium [Moles/Vol] 141 mmol/L 136-145 [facility] Urea nitrogen [Mass/Vol] 32.0 mg/dL High 7.0-18.0 [facility] Urea nitrogen/Creatinine [Mass ratio] 23.0 mg/mg [facility] Serum or plasma anion gap de terminationon 12-30-2023 Anion gap [Moles/Vol] 11.6 mmol/L [facility] 36on 12-16-2023 36 Regarding lab [...] BMP in 2 weeks. Order faxed to [facility]. [facility] Basophils Auto (Bld) [#/Vol] on 12-09-2023 Basophils (Bld) [#/Vol] 0.0 10 3/uL 0.0-0.1 [facility] Basophils/100 WBC Auto (Bld) on 12-09-2023 Basophils/100 WBC (Bld) 0.4 % 0.2-2.0 [facility] Eosinophils/100 WBC Auto (Bl d)on 12-09-2023 Eosinophils/100 WBC (Bld) 2.7 % 0.9-7.0 [facility] Erythrocyte distribution wid th Auto (RBC) [Ratio]on 12-09-2023 Erythrocyte distribution width (RBC) [Ratio] 12.9 % 11.0-15.0 [facility] Estimated glomerular filtrat ion rate (GFR) non- Americanon 12-09-2023 GFR/1.73 sq M.predicted among non-blacks MDRD (S/P/Bld) [Vol rate/Area] 39 mL/min/{1.73_m2} Low >=60 [facility] Hematocrit Auto (Bld) [Volum e fraction]on 12-09-2023 Hematocrit (Bld) [Volume fraction] 37.7 % 36.0-48.0 [facility] Hemoglobin [Mass/volume] in Bloodon 12-09-2023 Hemoglobin (Bld) [Mass/Vol] 11.8 g/dL Low 12.0-16.0 [facility] Laboratory - Chemistry and C hemistry - challengeon 12-09-2023 Calcium [Mass/Vol] 9.1 mg/dL 8.5-10.1 [facility] Chloride [Moles/Vol] 105 mmol/L 98-107 [facility] CO2 [Moles/Vol] 28.9 mmol/L 21.0-32.0 [facility] Cobalamin (Vitamin B12) [Mass/Vol] 492.0 pg/mL 193.0-986.0 [facility] Creatinine [Mass/Vol] 1.33 mg/dL High 0.55-1.02 [facility] Ferritin [Mass/Vol] 180.0 ng/mL 8.0-252.0 [facility] GFR/1.73 sq M.predicted MDRD (S/P/Bld) [Vol rate/Area] 48 mL/min/{1.73_m2} Low >=60 [facility] Glucose [Mass/Vol] 162 mg/dL High 74-106 [facility] Potassium [Moles/Vol] 4.7 mmol/L 3.5-5.1 [facility] Sodium [Moles/Vol] 138 mmol/L 136-145 [facility] Urea nitrogen [Mass/Vol] 33.0 mg/dL High 7.0-18.0 [facility] Urea nitrogen/Creatinine [Mass ratio] 24.8 mg/mg [facility] Laboratory - Hematology and Cell countson 12-09-2023 Immature granulocytes/100 WBC (Bld) 0.4 % 0.0-0.5 [facility] Leukocytes [#/volume] correc nicholas for nucleated erythrocytes in Blood by Automated counon 12-09-2023 WBC corrected for nucl RBC Auto (Bld) [#/Vol] 9.4 10 3/uL 4.0-11.0 [facility] Lymphocytes Auto (Bld) [#/Vo l]on 12-09-2023 Lymphocytes (Bld) [#/Vol] 2.5 10 3/uL 1.2-3.8 [facility] Lymphocytes/100 WBC Auto (Bl d)on 12-09-2023 Lymphocytes/100 WBC (Bld) 26.3 % 20.5-60.0 [facility] MCH Auto (RBC) [Entitic mass ]on 12-09-2023 MCH (RBC) [Entitic mass] 29.1 pg 26.7-34.0 [facility] MCHC Auto (RBC) [Mass/Vol]on 12-09-2023 MCHC (RBC) [Mass/Vol] 31.3 g/dL 29.9-35.2 [facility] MCV Auto (RBC) [Entitic vol] on 12-09-2023 MCV (RBC) [Entitic vol] 92.9 fL 81.0-99.0 [facility] Monocytes Auto (Bld) [#/Vol] on 12-09-2023 Monocytes (Bld) [#/Vol] 0.5 10 3/uL 0.3-0.8 [facility] Monocytes/100 WBC Auto (Bld) on 12-09-2023 Monocytes/100 WBC (Bld) 5.2 % 1.7-12.0 [facility] Neutrophils Auto (Bld) [#/Vo l]on 12-09-2023 Neutrophils (Bld) [#/Vol] 6.1 10 3/uL 1.4-6.5 [facility] Neutrophils/100 WBC Auto (Bl d)on 12-09-2023 Neutrophils/100 WBC (Bld) 65.0 % 43.0-75.0 [facility] No Panel Informationon 12-08 Eosinophils # (Auto) 0.3 10 3/uL 0.0-0.7 [facility] Folate 21.20 ng/mL 8.60-58.90 [facility] Immature Granulocyte # (Auto) 0.04 10 3/uL High 0.00-0.03 [facility] Platelet mean volume Auto (B ld) [Entitic vol]on 12-09-2023 Platelet mean volume (Bld) [Entitic vol] 10.4 fL 9.5-13.5 [facility] Platelets Auto (Bld) [#/Vol] on 12-09-2023 Platelets (Bld) [#/Vol] 242 10 3/uL 150-450 [facility] RBC Auto (Bld) [#/Vol]on RBC (Bld) [#/Vol] 4.06 10 6/uL Low 4.20-5.40 [facility] Serum or plasma anion gap de terminationon 12-09-2023 Anion gap [Moles/Vol] 8.8 mmol/L [facility] 36on 12-03-2023 36 Regarding lab result s from 11/29/2023: MD Lorenza Atkinson MA Please let her know her s.cr is mildly elevated; would like her to decrease lasix to 10 mg (1/2 a tablet) daily and repeat BMP in 5 days Thanks Spoke with patient and made her aware. BMP sent to [facility]. She will have drawn on Saturday, 12/08. [facility] Estimated glomerular filtrat ion rate (GFR) non- Americanon 11-29-2023 GFR/1.73 sq M.predicted among non-blacks MDRD (S/P/Bld) [Vol rate/Area] 37 mL/min/{1.73_m2} Low >=60 [facility] Laboratory - Chemistry and C hemistry - challengeon 11-29-2023 Calcium [Mass/Vol] 9.0 mg/dL 8.5-10.1 [facility] Chloride [Moles/Vol] 104 mmol/L 98-107 [facility] CO2 [Moles/Vol] 28.5 mmol/L 21.0-32.0 [facility] Creatinine [Mass/Vol] 1.41 mg/dL High 0.55-1.02 [facility] GFR/1.73 sq M.predicted MDRD (S/P/Bld) [Vol rate/Area] 44 mL/min/{1.73_m2} Low >=60 [facility] Glucose [Mass/Vol] 142 mg/dL High 74-106 [facility] Potassium [Moles/Vol] 4.2 mmol/L 3.5-5.1 [facility] Sodium [Moles/Vol] 140 mmol/L 136-145 [facility] Urea nitrogen [Mass/Vol] 31.0 mg/dL High 7.0-18.0 [facility] Urea nitrogen/Creatinine [Mass ratio] 22.0 mg/mg [facility] Serum or plasma anion gap de terminationon 11-29-2023 Anion gap [Moles/Vol] 11.7 mmol/L [facility] Office Visiton 11-25-2023 Follow-up visit [id number] Libra Noonan 1950 Date Provider Department Center 11/25/2023 271-PLACIDO ROSALES Family History Problem Relation Age of Onset Rheumatic fever Mother Heart failure Mother Stroke Mother Other Mother Comments: She is unsure if this was a defibrillator Stroke Father Family Status - Relation Status Age at Mother Father Level of Service:77715 [place] OFFICE/OUTPATIENT ESTABLISHED MOD MDM 30 MIN [facility] 11-11-2023 36 Patient called to report back to you after decreased carvedilol back down to 12.5mg. She isn't as dizzy. BP still around 90's/60's. She did stop Bumex also after last lab work. Any recommendations? Please advise. Thanks. [facility] 36on 11-06-2023 36 Spoke with patient a [...] Patient then made aware to stop Bumex. [facility] 36 Patient called c/o weakness, nausea, and increased dizziness since increased carvedilol and adding Bumex s/p cath on 10/24. She had labs Saturday (in junior media [employer]). Her BP just now on the phone was 92/63, HR 69. Any recommendations? Please advise. [facility] Telephoneon 11-06-2023 Telephone [id number] Libra Noonan 1950 Date Provider Department Center 11/06/2023 LORENZA DALLAS Family History Problem Relation Age of Onset Rheumatic fever Mother Heart failure Mother Stroke Mother Other Mother Comments: She is unsure if this was a defibrillator Stroke Father Family Status - Relation Status Age at Mother Father [facility] Estimated glomerular filtrat ion rate (GFR) non- Americanon 11-04-2023 GFR/1.73 sq M.predicted among non-blacks MDRD (S/P/Bld) [Vol rate/Area] 28 mL/min/{1.73_m2} Low >=60 [facility] Laboratory - Chemistry and C hemistry - challengeon 11-04-2023 Calcium [Mass/Vol] 9.4 mg/dL 8.5-10.1 [facility] Chloride [Moles/Vol] 101 mmol/L 98-107 [facility] CO2 [Moles/Vol] 26.9 mmol/L 21.0-32.0 [facility] Creatinine [Mass/Vol] 1.79 mg/dL High 0.55-1.02 [facility] GFR/1.73 sq M.predicted MDRD (S/P/Bld) [Vol rate/Area] 34 mL/min/{1.73_m2} Low >=60 [facility] Glucose [Mass/Vol] 191 mg/dL High 74-106 [facility] Potassium [Moles/Vol] 4.0 mmol/L 3.5-5.1 [facility] Sodium [Moles/Vol] 138 mmol/L 136-145 [facility] Urea nitrogen [Mass/Vol] 69.0 mg/dL High 7.0-18.0 [facility] Urea nitrogen/Creatinine [Mass ratio] 38.5 mg/mg [facility] Serum or plasma anion gap de terminationon 11-04-2023 Anion gap [Moles/Vol] 14.1 mmol/L [facility] ANESon 10-25-2023 ANES -- Attestation signed by Placido Rosales MD at 10/25/2023 9:13 AM Placido Rosales MD, MPH, FACC, [facility], [facility] Interventional Cardiology Pager Email: [email or web address] Patient: Libra Noonan Procedure Information Date/Time: 10/25/23 1100 Procedure: Coronary angiography (Bilateral) - WILL NEED TO ADJUST INSULIN Location: [facility] REAL ESTATE ACQUISITION ANALYST 3 / [facility] VASCULAR LAB (Cath) Providers: Placido Rosales MD Clinical information reviewed: Itandi Meds OB Status Physical Exam Airway Mallampati: III TM distance: >3 FB Neck ROM: full Cardiovascular Rhythm: regular Rate: normal Dental Pulmonary Abdominal (+) obese Anesthesia Plan ASA 3 Anesthetic plan and risks discussed with patient. Use of blood products discussed with patient who. Plan discussed with attending. Additional Equipment Requests [facility] HPon 10-25-2023 HP -- Attestation signed by Placido Rosales MD at 10/25/2023 9:13 AM Plaicdo Rosales MD, MPH, [facility], [facility], [facility] Interventional Cardiology Pager Email: [email or web address] H&P reviewed. The patient was examined [...] were addressed and answered. Savita Becker MD [employer] - PGY5 [facility] NURSNOTEon 10-25-2023 NURSNOTE RN educated pt on d/ c instructions. RN encouraged pt to voice any questions or concerns. Pt verbalizes no questions or concerns at this time. Pt was wheeled off of unit with all of belongings. [facility] NURSNOTE Dr. Pedroza notifi ed of pt tearfully in pain at right internal jugular site. RN currently holding pressure to stop oozing. Dr. Pedroza assessed patient and ordered pt to stay an extra hour before discharge and to monitor site. He verbalized site looked normal. [facility] Orders Onlyon 10-25-2023 Orders Only [id number] Libra Noonan 1950 F Date Provider Department Center 10/25/2023 KENDRA MAI [facility] Family History Problem Relation Age of Onset Rheumatic fever Mother Heart failure Mother Stroke Mother Other Mother Comments: She is unsure if this was a defibrillator Stroke Father Family Status - Relation Status Age at Mother Father [facility] Basophils Auto (Bld) [#/Vol] on 10-17-2023 Basophils (Bld) [#/Vol] 0.0 10 3/uL 0.0-0.1 [facility] Basophils/100 WBC Auto (Bld) on 10-17-2023 Basophils/100 WBC (Bld) 0.6 % 0.2-2.0 [facility] Cholesterol in LDL Calc [Mas s/Vol]on 10-17-2023 Cholesterol in LDL [Mass/Vol] 44.0 mg/dL [facility] Comment on above: <100 mg/dl [id number] 0-129 mg/dl NEAR OR ABOVE [id number] mg/dl BORDERLINE [id number] mg/dl HIGH>190 mg/dl VERY HIGH Cholesterol in VLDL Calc [Ma ss/Vol]on 10-17-2023 Cholesterol in VLDL [Mass/Vol] 13.6 mg/dL [facility] Eosinophils/100 WBC Auto (Bl d)on 10-17-2023 Eosinophils/100 WBC (Bld) 1.4 % 0.9-7.0 [facility] Erythrocyte distribution wid th Auto (RBC) [Ratio]on 10-17-2023 Erythrocyte distribution width (RBC) [Ratio] 12.0 % 11.0-15.0 [facility] Estimated glomerular filtrat ion rate (GFR) non- Americanon 10-17-2023 GFR/1.73 sq M.predicted among non-blacks MDRD (S/P/Bld) [Vol rate/Area] 42 mL/min/{1.73_m2} Low >=60 [facility] Globulin Calc (S) [Mass/Vol] on 10-17-2023 Globulin (S) [Mass/Vol] 3.6 g/dL [facility] Glucose mean value [Mass/vol ume] in Blood Estimated from glycated hemoglobinon 10-17-2023 Average glucose Estimated from glycated hemoglobin (Bld) [Mass/Vol] 177 mg/dL [facility] Hematocrit Auto (Bld) [Volum e fraction]on 10-17-2023 Hematocrit (Bld) [Volume fraction] 35.3 % Low 36.0-48.0 [facility] Hemoglobin [Mass/volume] in Bloodon 10-17-2023 Hemoglobin (Bld) [Mass/Vol] 11.1 g/dL Low 12.0-16.0 [facility] Laboratory - Chemistry and C hemistry - challengeon 10-17-2023 Albumin [Mass/Vol] 3.6 g/dL 3.4-5.0 [facility] ALP [Catalytic activity/Vol] 105 U/L 46-116 [facility] ALT [Catalytic activity/Vol] 30 U/L 14-59 [facility] AST [Catalytic activity/Vol] 17 U/L 15-37 [facility] Bilirubin [Mass/Vol] 0.5 mg/dL 0.2-1.0 [facility] Calcium [Mass/Vol] 9.4 mg/dL 8.5-10.1 [facility] Chloride [Moles/Vol] 105 mmol/L 98-107 [facility] Cholesterol [Mass/Vol] 122 mg/dL <=200 [facility] Cholesterol in HDL [Mass/Vol] 65 mg/dL High 40-60 [facility] Comment on above: > or =60 mg/dl - LOW CARDIOVASCULAR RISK<40 mg/dl - HIGH CARDIOVASCULAR RISK CO2 [Moles/Vol] 26.7 mmol/L 21.0-32.0 [facility] Creatinine [Mass/Vol] 1.25 mg/dL High 0.55-1.02 [facility] GFR/1.73 sq M.predicted MDRD (S/P/Bld) [Vol rate/Area] 51 mL/min/{1.73_m2} Low >=60 [facility] Glucose [Mass/Vol] 212 mg/dL High 74-106 [facility] Potassium [Moles/Vol] 4.7 mmol/L 3.5-5.1 [facility] Protein [Mass/Vol] 7.2 g/dL 6.4-8.2 [facility] Sodium [Moles/Vol] 141 mmol/L 136-145 [facility] Triglyceride [Mass/Vol] 68 mg/dL <=150 [facility] TSH Qn 2.291 m[IU]/L 0.358-3.740 [facility] Urea nitrogen [Mass/Vol] 30.0 mg/dL High 7.0-18.0 [facility] Urea nitrogen/Creatinine [Mass ratio] 24.0 mg/mg [facility] Laboratory - Hematology and Cell countson 10-17-2023 HbA1c (Bld) [Mass fraction] 7.8 % High 4.5-6.2 [facility] Comment on above: ADA RECOMMENDED LIMI T 4.0 - 6.0ADA THERAPEUTIC TARGET < 7.0ACTION SUGGESTED> 7.0 Immature granulocytes/100 WBC (Bld) 0.3 % 0.0-0.5 [facility] Leukocytes [#/volume] correc nicholas for nucleated erythrocytes in Blood by Automated counon 10-17-2023 WBC corrected for nucl RBC Auto (Bld) [#/Vol] 7.2 10 3/uL 4.0-11.0 [facility] Lymphocytes Auto (Bld) [#/Vo l]on 10-17-2023 Lymphocytes (Bld) [#/Vol] 2.1 10 3/uL 1.2-3.8 [facility] Lymphocytes/100 WBC Auto (Bl d)on 10-17-2023 Lymphocytes/100 WBC (Bld) 29.8 % 20.5-60.0 [facility] MCH Auto (RBC) [Entitic mass ]on 10-17-2023 MCH (RBC) [Entitic mass] 29.7 pg 26.7-34.0 [facility] MCHC Auto (RBC) [Mass/Vol]on 10-17-2023 MCHC (RBC) [Mass/Vol] 31.4 g/dL 29.9-35.2 [facility] MCV Auto (RBC) [Entitic vol] on 10-17-2023 MCV (RBC) [Entitic vol] 94.4 fL 81.0-99.0 [facility] Monocytes Auto (Bld) [#/Vol] on 10-17-2023 Monocytes (Bld) [#/Vol] 0.4 10 3/uL 0.3-0.8 [facility] Monocytes/100 WBC Auto (Bld) on 10-17-2023 Monocytes/100 WBC (Bld) 6.1 % 1.7-12.0 [facility] Neutrophils Auto (Bld) [#/Vo l]on 10-17-2023 Neutrophils (Bld) [#/Vol] 4.5 10 3/uL 1.4-6.5 [facility] Neutrophils/100 WBC Auto (Bl d)on 10-17-2023 Neutrophils/100 WBC (Bld) 61.8 % 43.0-75.0 [facility] No Panel Informationon 10-16 Eosinophils # (Auto) 0.1 10 3/uL 0.0-0.7 [facility] Immature Granulocyte # (Auto) 0.02 10 3/uL 0.00-0.03 [facility] Platelet mean volume Auto (B ld) [Entitic vol]on 10-17-2023 Platelet mean volume (Bld) [Entitic vol] 10.9 fL 9.5-13.5 [facility] Platelets Auto (Bld) [#/Vol] on 10-17-2023 Platelets (Bld) [#/Vol] 214 10 3/uL 150-450 [facility] RBC Auto (Bld) [#/Vol]on RBC (Bld) [#/Vol] 3.74 10 6/uL Low 4.20-5.40 [facility] Serum or plasma albumin/glob ulin mass ratioon 10-17-2023 Albumin/Globulin [Mass ratio] 1.0 {ratio} [facility] Serum or plasma anion gap de terminationon 10-17-2023 Anion gap [Moles/Vol] 14.0 mmol/L [facility] Serum or plasma total choles terol/high density lipoprotein (HDL) cholesterol mass helen 10-17-2023 Cholesterol.total/C holesterol in HDL [Mass ratio] 1.9 {ratio} [facility] Comment on above: 3.3 - 4.4 LOW RISK4. 4 - 7.1 AVERAGE RISK7.1 - 11.0 MODERATE RISK>11.0 HIGH RISK HPon 10-09-2023 [facility] Cardiology Clinic Note Chief Complaint: Patient here [...] with reversib (more content not included)... Normal [facility] Office Visiton 10-09-2023 Follow-up visit [id number] Libra Noonan M 1950 F Date Provider Department Center 10/09/2023 271-[facility] Family History Problem Relation Age of Onset Rheumatic fever Mother Heart failure Mother Stroke Mother Other Mother Comments: She is unsure if this was a defibrillator Stroke Father Family Status - Relation Status Age at Mother Father Level of Service:20769 [place] OFFICE/OUTPATIENT ESTABLISHED HIGH MDM 40 MIN [facility] Orders Onlyon 10-09-2023 Orders Only [id number] Libra Noonan 1950 F Date Provider Department Center 10/09/2023 JOSE ALBERTO D[facility] Family History Problem Relation Age of Onset Rheumatic fever Mother Heart failure Mother Stroke Mother Other Mother Comments: She is unsure if this was a defibrillator Stroke Father Family Status - Relation Status Age at Mother Father [facility] Office Visiton 09-13-2023 Follow-up visit [id number] Libra Noonan 1950 F Date Provider Department Center 09/13/2023 3848-DANIELA [facility]DRIC[facility] Family History Problem Relation Age of Onset Rheumatic fever Mother Heart failure Mother Stroke Mother Other Mother Comments: She is unsure if this was a defibrillator Stroke Father Family Status - Relation Status Age at Mother Father Level of Service:76330 [place] OFFICE/OUTPATIENT ESTABLISHED MOD MDM 30 MIN [facility] 09-12-2023 36 Patient is scheduled for apt tomorrow with Dr. Hendricks. [facility] 09-11-2023 36 Patient was seen in [facility] ED in Jul for chest pain. Says she's still having it often. She doesn't want to wait until 09/17 to see you in the office. Did you want testing prior to an office visit? I uploaded all the ED records into her junior media buyer for your review. Please advise. Thanks. [facility] 09-04-2023 36 I received a call fr nichole Bell's office. She asked me to reach out to Libra to get her scheduled for a follow up. She told me she's been having left-sided chest pain, and was evaluated in the ED recently. I LM on patient's VM asking her to return my call. Normal [facility] Basophils Auto (Bld) [#/Vol] on 08-16-2023 Basophils (Bld) [#/Vol] 0.1 10 3/uL 0.0-0.1 [facility] Basophils/100 WBC Auto (Bld) on 08-16-2023 Basophils/100 WBC (Bld) 0.9 % 0.2-2.0 [facility] Eosinophils/100 WBC Auto (Bl d)on 08-16-2023 Eosinophils/100 WBC (Bld) 6.5 % 0.9-7.0 [facility] Erythrocyte distribution wid th Auto (RBC) [Ratio]on 08-16-2023 Erythrocyte distribution width (RBC) [Ratio] 12.3 % 11.0-15.0 [facility] Estimated glomerular filtrat ion rate (GFR) non- Americanon 08-16-2023 GFR/1.73 sq M.predicted among non-blacks MDRD (S/P/Bld) [Vol rate/Area] 44 mL/min/{1.73_m2} >=60 [facility] Fibrin D-dimer [Presence] in Platelet poor plasma by Latex agglutinationon 08-16-2023 Fibrin D-dimer LA Ql (PPP) 0.72 mg/L FEU <=0.59 [facility] Comment on above: RESULTS CALLED [...] on 08-16-2023 Globulin (S) [Mass/Vol] 3.7 g/dL [facility] Hematocrit Auto (Bld) [Volum e fraction]on 08-16-2023 Hematocrit (Bld) [Volume fraction] 36.1 % 36.0-48.0 [facility] Hemoglobin [Mass/volume] in Bloodon 08-16-2023 Hemoglobin (Bld) [Mass/Vol] 11.6 g/dL 12.0-16.0 [facility] Laboratory - Chemistry and C hemistry - challengeon 08-16-2023 Albumin [Mass/Vol] 3.1 g/dL 3.4-5.0 [facility] ALP [Catalytic activity/Vol] 100 U/L 46-116 [facility] ALT [Catalytic activity/Vol] 22 U/L 14-59 [facility] AST [Catalytic activity/Vol] 17 U/L 15-37 [facility] Bilirubin [Mass/Vol] 0.6 mg/dL 0.2-1.0 [facility] Calcium [Mass/Vol] 9.1 mg/dL 8.5-10.1 [facility] Chloride [Moles/Vol] 106 mmol/L 98-107 [facility] CO2 [Moles/Vol] 28.5 mmol/L 21.0-32.0 [facility] Creatinine [Mass/Vol] 1.21 mg/dL 0.55-1.02 [facility] GFR/1.73 sq M.predicted MDRD (S/P/Bld) [Vol rate/Area] 53 mL/min/{1.73_m2} >=60 [facility] Glucose [Mass/Vol] 214 mg/dL 74-106 [facility] Lipase [Catalytic activity/Vol] 15.0 U/L 16.0-77.0 [facility] Natriuretic peptide B (Bld) [Mass/Vol] 447.0 pg/mL <=900.0 [facility] Potassium [Moles/Vol] 4.3 mmol/L 3.5-5.1 [facility] Protein [Mass/Vol] 6.8 g/dL 6.4-8.2 [facility] Sodium [Moles/Vol] 144 mmol/L 136-145 [facility] Urea nitrogen [Mass/Vol] 23.0 mg/dL 7.0-18.0 [facility] Urea nitrogen/Creatinine [Mass ratio] 19.0 mg/mg [facility] Laboratory - Hematology and Cell countson 08-16-2023 Immature granulocytes/100 WBC (Bld) 0.3 % 0.0-0.5 [facility] Leukocytes [#/volume] correc nicholas for nucleated erythrocytes in Blood by Automated counon 08-16-2023 WBC corrected for nucl RBC Auto (Bld) [#/Vol] 7.0 10 3/uL 4.0-11.0 [facility] Lymphocytes Auto (Bld) [#/Vo l]on 08-16-2023 Lymphocytes (Bld) [#/Vol] 1.7 10 3/uL 1.2-3.8 [facility] Lymphocytes/100 WBC Auto (Bl d)on 08-16-2023 Lymphocytes/100 WBC (Bld) 24.4 % 20.5-60.0 [facility] MCH Auto (RBC) [Entitic mass ]on 08-16-2023 MCH (RBC) [Entitic mass] 30.6 pg 26.7-34.0 [facility] MCHC Auto (RBC) [Mass/Vol]on 08-16-2023 MCHC (RBC) [Mass/Vol] 32.1 g/dL 29.9-35.2 [facility] MCV Auto (RBC) [Entitic vol] on 08-16-2023 MCV (RBC) [Entitic vol] 95.3 fL 81.0-99.0 [facility] Monocytes Auto (Bld) [#/Vol] on 08-16-2023 Monocytes (Bld) [#/Vol] 0.4 10 3/uL 0.3-0.8 [facility] Monocytes/100 WBC Auto (Bld) on 08-16-2023 Monocytes/100 WBC (Bld) 6.3 % 1.7-12.0 [facility] Neutrophils Auto (Bld) [#/Vo l]on 08-16-2023 Neutrophils (Bld) [#/Vol] 4.3 10 3/uL 1.4-6.5 [facility] Neutrophils/100 WBC Auto (Bl d)on 08-16-2023 Neutrophils/100 WBC (Bld) 61.6 % 43.0-75.0 [facility] No Panel Informationon 08-16 Eosinophils # (Auto) 0.5 10 3/uL 0.0-0.7 [facility] Immature Granulocyte # (Auto) 0.02 10 3/uL 0.00-0.03 [facility] Troponin I High Sensitivity 12.0 pg/mL 4.0-51.3 [facility] Comment on above: CUT-OFF POINTS [...] volume (Bld) [Entitic vol] 10.3 fL 9.5-13.5 [facility] Platelets Auto (Bld) [#/Vol] on 08-16-2023 Platelets (Bld) [#/Vol] 214 10 3/uL 150-450 [facility] RBC Auto (Bld) [#/Vol]on RBC (Bld) [#/Vol] 3.79 10 6/uL 4.20-5.40 [facility] Serum or plasma albumin/glob ulin mass ratioon 08-16-2023 Albumin/Globulin [Mass ratio] 0.8 {ratio} [facility] Serum or plasma anion gap de terminationon 08-16-2023 Anion gap [Moles/Vol] 13.8 mmol/L [facility] Office Visiton 05-08-2023 Follow-up visit [id number] Libra Noonan 1950 F Date Provider Department Center 05/08/2023 RIMA VICK CARD [facility] Family History Problem Relation Age of Onset Rheumatic fever Mother Heart failure Mother Stroke Mother Other Mother Comments: She is unsure if this was a defibrillator Stroke Father Family Status - Relation Status Age at Mother Father Level of Service:23770 [place] OFFICE/OUTPATIENT ESTABLISHED LOW MDM 20-29 MIN Reason for Visit and Comments: Follow-up [972517] Hypertension [835492] Coronary Artery Disease [187] Hyperlipidemia [182] Normal [facility] XR lumbar spine AP/LAT/FLX/E XTon 04-23-2023 XR lumbar spine AP/LAT/FLX/EXT [facility] [place] [address] [place] [address] XRay Report Signed Patient: Libra Noonan MR#: [id number] : 1950 Acct:[id number] Age/Sex: 72 / F ADM Date: 04/23/23 Loc: [facility] Room: Type: [facility] Attending Dr: Eric Villanueva MD Copies [...] Jacinto Bolden M.D.04/23/2023 3:43 PM Dictation Location: [place] [address] Transcribed By: [facility] 04/23/23 154 Dictated By: Jacinto Bolden DO 04/23/23 1539 Signed By: 04/23/23 1543 Normal [facility] CBC AUTO DIFFon 11-06-2022 BASO # 0.0 103/ul Normal 0.0-0.1 [facility] Comment on above: Performed By: #### C BC #### [facility] [address] [address] [address] Dylan Santana Basophils/100 WBC (Bld) 0.2 % Normal 0.2-2.0 [facility] Comment on above: Performed By: #### C BC #### [facility] [address] [place] [address] [address] Dylan Santana EO # 0.0 103/ul Normal 0.0-0.7 [facility] Comment on above: Performed By: #### C BC #### [facility] [address] [place] [address] Dr. Dylan Santana Eosinophils/100 WBC (Bld) 0.2 % Critically low 0.9-7.0 [facility] Comment on above: Performed By: #### C BC #### [facility] [address] [place] [address] Dr. Dylan Santana Erythrocyte distribution width (RBC) [Ratio] 12.1 % Normal 11.0-15.0 [facility] Comment on above: Performed By: #### C BC #### [facility] [address] [place] [address] Dr. Dylan Santana Hematocrit (Bld) [Volume fraction] 42.7 % Normal 36.0-48.0 [facility] Comment on above: Performed By: #### C BC #### [facility] [address] [place] [address] Dr. Dylan Santana Hemoglobin (Bld) [Mass/Vol] 13.9 g/dL Normal 12.0-16.0 [facility] Comment on above: Performed By: #### C BC #### [facility] [address] [place] [address] Dr. Dylan Santana IG # 0.05 10e3/ul Critically high 0.00-0.03 [facility] Comment on above: Performed By: #### C BC #### [facility] [address] [place] [address] Dr. Dylan Santana IG % 0.5 % Normal 0.0-0.5 [facility] Comment on above: Performed By: #### C BC #### [facility] [address] [place] [address] Dr. Dylan Santana LYMPH # 2.1 103/ul Normal 1.2-3.8 [facility] Comment on above: Performed By: #### C BC #### [facility] [address] [place] [address] Dr. Dylan Santana Lymphocytes/100 WBC (Bld) 20.8 % Normal 20.5-60.0 [facility] Comment on above: Performed By: #### C BC #### [facility] [address] [place] [address] Dr. Dylan Santana MANUAL DIFF REQ NO Normal [facility] Comment on above: Performed By: #### C BC #### [facility] [address] [place] [address] Dr. Dylan Santana MCH (RBC) [Entitic mass] 30.1 pg Normal 26.7-34.0 [facility] Comment on above: Performed By: #### C BC #### [facility] [address] [place] [address] Dr. Dylan Santana MCHC (RBC) [Mass/Vol] 32.6 g/dL Normal 29.9-35.2 [facility] Comment on above: Performed By: #### C BC #### [facility] [address] [place] [address] Dr. Dylan Santana MCV (RBC) [Entitic vol] 92.4 fL Normal 81.0-99.0 [facility] Comment on above: Performed By: #### C BC #### [facility] [address] [place] [address] Dr. Dylan Santana MONO # 0.4 103/ul Normal 0.3-0.8 [facility] Comment on above: Performed By: #### C BC #### [facility] [address] [place] [address] Dr. Dylan Santana Monocytes/100 WBC (Bld) 3.8 % Normal 1.7-12.0 [facility] Comment on above: Performed By: #### C BC #### [facility] [address] [place] [address] Dr. Dylan Santana NEUT # 7.6 103/ul Critically high 1.4-6.5 [facility] Comment on above: Performed By: #### C BC #### [facility] [address] [address] [address] Dylan Santana Neutrophils/100 WBC (Bld) 74.5 % Normal 43.0-75.0 [facility] Comment on above: Performed By: #### C BC #### [facility] [address] [place] [address] Dr. Dylan Santana Platelet mean volume (Bld) [Entitic vol] 10.4 fL Normal 9.5-13.5 [facility] Comment on above: Performed By: #### C BC #### [facility] [address] [place] [address] [address] Dylan Santana PLT 228 103/ul Normal 150-450 [facility] Comment on above: Performed By: #### C BC #### [facility] [address] [place] [address] Dr. Dylan Santana RBC 4.62 106/ul Normal 4.20-5.40 [facility] Comment on above: Performed By: #### C BC #### [facility] [address] [place] [address] Dr. Dylan Santana WBC 10.2 103/ul Normal 4.0-11.0 [facility] Comment on above: Performed By: #### C BC #### [facility] [address] [place] [address] Dr. Dylan Santana GLYCOHEMOGLOBIN A1Con 2022 ADA RECOMMENDATION SEE BELOW Normal [facility] Comment on above: Result Comment: ADA RECOMMENDED LIMIT 4.0 - 6.0 ADA THERAPEUTIC TARGET < 7.0 ACTION SUGGESTED > 7.0 Performed By: #### A 1C #### [facility] [address] [place] [address] Dr. Dylan Santana Glucose [Mass/Vol] 214 mg/dL Normal [facility] Comment on above: Performed By: #### A 1C #### [facility] [address] [place] [address] Dr. Dylan Santana HbA1c (Bld) [Mass fraction] 9.1 % Critically high 4.5-6.2 [facility] Comment on above: Performed By: #### A 1C #### [facility] [address] [place] [address] [address] Dylan Santana LIPID PROFILEon 11-06-2022 CHOL-HDL RATIO NORM SEE BELOW Normal [facility] Comment on above: Result Comment: 3.3 - 4.4 LOW RISK 4.4 - 7.1 AVERAGE RISK 7.1 - 11.0 MODERATE RISK >11.0 HIGH RISK Performed By: #### L IPID #### [facility] [address] [address] [address] Dylan Santana Cholesterol [Mass/Vol] 142 mg/dL Normal <=200 [facility] Comment on above: Performed By: #### L IPID #### [facility] [address] [place] [address] [address] Dylan Santana Cholesterol in HDL [Mass/Vol] 74 mg/dL Critically high 40-60 [facility] Comment on above: Performed By: #### L IPID #### [facility] [address] [address] [address] Dylan Santana Cholesterol in LDL [Mass/Vol] 49.4 mg/dL Normal [facility] Comment on above: Performed By: #### L IPID #### [facility] [address] [address] [address] Dylan Santana Cholesterol.total/C holesterol in HDL [Mass ratio] 1.9 {ratio} Normal [facility] Comment on above: Performed By: #### L IPID #### [facility] [address] [address] [address] Dylan Santana HDL NORMAL > or = 60 mg/dl - LO W CARDIOVASCULAR RISK <40 mg/dl - HIGH CARDIOVASCULAR RISK Normal [facility] Comment on above: Performed By: #### L IPID #### [facility] [address] [id number] Dylan Santana LDL CALC NORMAL SEE BELOW Normal [facility] Comment on above: Result Comment: <100 mg/dl OPTIMAL 100 - 129 mg/dl NEAR OR ABOVE OPTIMAL 130 - 159 mg/dl BORDERLINE HIGH 160 - 189 mg/dl HIGH >190 mg/dl VERY HIGH Performed By: #### L IPID #### [facility] [address] [address] [address] Dylan Santana Triglyceride [Mass/Vol] 93 mg/dL Normal <=150 [facility] Comment on above: Performed By: #### L IPID #### [facility] [address] [address] [address] Dylan Santana VLDL CALC 18.6 mg/dL Normal [facility] Comment on above: Performed By: #### L IPID #### [facility] [address] [address] [address] Dylan Santana PROF CHEM 8 (BAS METB)on Anion gap [Moles/Vol] 12.8 mmol/L Normal [facility] Comment on above: Performed By: #### C BC #### [facility] [address] [place] [address] Dr. Dylan Santana Calcium [Mass/Vol] 9.5 mg/dL Normal 8.5-10.1 [facility] Comment on above: Performed By: #### C BC #### [facility] [address] [place] [address] [address] Dylan Santana Chloride [Moles/Vol] 105 mmol/L Normal 98-107 [facility] Comment on above: Performed By: #### C BC #### [facility] [address] [place] [address] Dr. Dylan Santana CO2 [Moles/Vol] 28.1 mmol/L Normal 21.0-32.0 [facility] Comment on above: Performed By: #### C BC #### [facility] [address] [address] [address] Dylan Santana Creatinine [Mass/Vol] 1.29 mg/dL Critically high 0.55-1.02 [facility] Comment on above: Performed By: #### C BC #### [facility] [address] [place] [address] Dr. Dylan Santana EGFR-AF ALBANIAN 49 mL/min/1.73m2 Critically low >=60 [facility] Comment on above: Performed By: #### C BC #### [facility] [address] [place], [place] [address] Dr. Dylan Santana EGFR-NON AF ALBANIAN 41 mL/min/1.73m2 Critically low >=60 [facility] Comment on above: Performed By: #### C BC #### [facility] [address] [place], [place] [address] Dr. Dylan Santana Glucose [Mass/Vol] 290 mg/dL Critically high 74-106 [facility] Comment on above: Performed By: #### C BC #### [facility] [address] [place], [place] [address] Dr. Dylan Santana Potassium [Moles/Vol] 4.9 mmol/L Normal 3.5-5.1 [facility] Comment on above: Performed By: #### C BC #### [facility] [address] [place] [address] [address] Dylan Santana Sodium [Moles/Vol] 141 mmol/L Normal 136-145 [facility] Comment on above: Performed By: #### C BC #### [facility] [address] [place], [place] [address] Dr. Dylan Santana Urea nitrogen [Mass/Vol] 30.0 mg/dL Critically high 7.0-18.0 [facility] Comment on above: Performed By: #### C BC #### [facility] [id number] Dylan Santana Urea nitrogen/Creatinine [Mass ratio] 23.3 mg/mg Normal [facility] Comment on above: Performed By: #### C BC #### [facility] [id number] Dylan Santana XR SHOULDER LT 2V [...] MARIE TINEO Date: 2022-07-26 16:54 Normal [facility] XR CHEST 2 Von 06-19-2022 [...] WEI REED Date: 2022-06-19 18:36 Normal [facility] BNPon 06-10-2022 Natriuretic peptide B (Bld) [Mass/Vol] 683.0 pg/mL Normal <=900.0 [facility] Comment on above: Performed By: #### L IPID, TSH, CMP #### [facility] [address] [place] [address] Dr. Dylan Santana CBC AUTO DIFFon 06-10-2022 BASO # 0.0 103/ul Normal 0.0-0.1 [facility] Comment on above: Performed By: #### C BC #### [facility] [address] [place] [address] Dr. Dylan Santana Basophils/100 WBC (Bld) 0.6 % Normal 0.2-2.0 [facility] Comment on above: Performed By: #### C BC #### [facility] [address] [place] [address] Dr. Dylan Santana EO # 0.3 103/ul Normal 0.0-0.7 [facility] Comment on above: Performed By: #### C BC #### [facility] [address] [place] [address] Dr. Dylan Santana Eosinophils/100 WBC (Bld) 4.9 % Normal 0.9-7.0 [facility] Comment on above: Performed By: #### C BC #### [facility] [address] [place] [address] Dr. Dylan Santana Erythrocyte distribution width (RBC) [Ratio] 12.2 % Normal 11.0-15.0 [facility] Comment on above: Performed By: #### C BC #### [facility] [address] [place] [address] Dr. Dylan Santana Hematocrit (Bld) [Volume fraction] 36.2 % Normal 36.0-48.0 [facility] Comment on above: Performed By: #### C BC #### [facility] [address] [place] [address] Dr. Dylan Santana Hemoglobin (Bld) [Mass/Vol] 11.9 g/dL Critically low 12.0-16.0 [facility] Comment on above: Performed By: #### C BC #### [facility] [address] [place] [address] Dr. Dylan Santana IG # 0.02 10e3/ul Normal 0.00-0.03 [facility] Comment on above: Performed By: #### C BC #### [facility] [address] [place] [address] Dr. Dylan Santana IG % 0.4 % Normal 0.0-0.5 [facility] Comment on above: Performed By: #### C BC #### [facility] [facility] [address] [place] [address] Dr. Dylan Santana LYMPH # 1.8 103/ul Normal 1.2-3.8 [facility] Comment on above: Performed By: #### C BC #### [facility] [address] [place] [address] Dr. Dylan Santana Lymphocytes/100 WBC (Bld) 34.8 % Normal 20.5-60.0 [facility] Comment on above: Performed By: #### C BC #### [facility] [address] [place] [address] Dr. Dylan Santana MANUAL DIFF REQ NO Normal [facility] [place] Comment on above: Performed By: #### C BC #### [facility] [address] [place] [address] Dr. Dylan Santana MCH (RBC) [Entitic mass] 30.2 pg Normal 26.7-34.0 [facility] Comment on above: Performed By: #### C BC #### [facility] [address] [address] [address] Dylan Santana MCHC (RBC) [Mass/Vol] 32.9 g/dL Normal 29.9-35.2 [facility] Comment on above: Performed By: #### C BC #### [facility] [address] [address] [address] Dylan Santana MCV (RBC) [Entitic vol] 91.9 fL Normal 81.0-99.0 [facility] Comment on above: Performed By: #### C BC #### [facility] [address] [address] [address] Dylan Santana MONO # 0.6 103/ul Normal 0.3-0.8 [facility] Comment on above: Performed By: #### C BC #### [facility] [address] [place] [address] Dr. Dylan Santana Monocytes/100 WBC (Bld) 12.5 % Critically high 1.7-12.0 [facility] Comment on above: Performed By: #### C BC #### [facility] [address] [place] [address] Dr. Dylan Santana NEUT # 2.4 103/ul Normal 1.4-6.5 [facility] Comment on above: Performed By: #### C BC #### [facility] [address] [address] [address] Dylna Santana Neutrophils/100 WBC (Bld) 46.8 % Normal 43.0-75.0 [facility] Comment on above: Performed By: #### C BC #### [facility] [address] [address] [address] Dylan Santana Platelet mean volume (Bld) [Entitic vol] 10.1 fL Normal 9.5-13.5 [facility] Comment on above: Performed By: #### C BC #### [facility] [address] [address] [address] Dylan Santana PLT 159 103/ul Normal 150-450 [facility] Comment on above: Performed By: #### C BC #### [facility] [address] [address] [address] Dylan Santana RBC 3.94 106/ul Critically low 4.20-5.40 [facility] Comment on above: Performed By: #### C BC #### [facility] [address] [place] [address] Dr. Dylan Santana WBC 5.1 103/ul Normal 4.0-11.0 [facility] Comment on above: Performed By: #### C BC #### [facility] [address] [place] [address] Dr. Dylan Santana BASO # 0.0 103/ul Normal 0.0-0.1 [facility] Comment on above: Performed By: #### C BC #### [facility] [address] [place] [address] Dr. Dylan Santana Basophils/100 WBC (Bld) 0.6 % Normal 0.2-2.0 [facility] Comment on above: Performed By: #### C BC #### [facility] [address] [place] [address] Dr. Dylan Santana EO # 0.3 103/ul Normal 0.0-0.7 [facility] Comment on above: Performed By: #### C BC #### [facility] [address] [place] [address] Dr. Dylan Santana Eosinophils/100 WBC (Bld) 5.0 % Normal 0.9-7.0 [facility] Comment on above: Performed By: #### C BC #### [facility] [address] [place] [address] Dr. Dylan Santana Erythrocyte distribution width (RBC) [Ratio] 12.1 % Normal 11.0-15.0 [facility] Comment on above: Performed By: #### C BC #### [facility] [address] [place] [address] Dr. Dylan Santana Hematocrit (Bld) [Volume fraction] 39.3 % Normal 36.0-48.0 [facility] Comment on above: Performed By: #### C BC #### [facility] [address] [place] [address] Dr. Dylan Santana Hemoglobin (Bld) [Mass/Vol] 12.9 g/dL Normal 12.0-16.0 [facility] Comment on above: Performed By: #### C BC #### [facility] [address] [place] [address] Dr. Dylan Santana IG # 0.02 10e3/ul Normal 0.00-0.03 [facility] Comment on above: Performed By: #### C BC #### [facility] [address] [place] [address] Dr. Dylan Santana IG % 0.4 % Normal 0.0-0.5 [facility] Comment on above: Performed By: #### C BC #### [facility] [address] [place] [address] Dr. Dylan Santana LYMPH # 1.4 103/ul Normal 1.2-3.8 [facility] Comment on above: Performed By: #### C BC #### [facility] [address] [place] [address] Dr. Dylan Santana Lymphocytes/100 WBC (Bld) 26.9 % Normal 20.5-60.0 [facility] Comment on above: Performed By: #### C BC #### [facility] [address] [place] [address] Dr. Dylan Santana MANUAL DIFF REQ NO Normal [facility] [place] Comment on above: Performed By: #### C BC #### [facility] [address] [place] [address] Dr. Dlyan Santana MCH (RBC) [Entitic mass] 30.2 pg Normal 26.7-34.0 [facility] Comment on above: Performed By: #### C BC #### [facility] [address] [place] [address] Dr. Dylan Santana MCHC (RBC) [Mass/Vol] 32.8 g/dL Normal 29.9-35.2 [facility] Comment on above: Performed By: #### C BC #### [facility] [address] [place] [address] Dr. Dylan Santana MCV (RBC) [Entitic vol] 92.0 fL Normal 81.0-99.0 [facility] Comment on above: Performed By: #### C BC #### [facility] [address] [place] [address] Dr. Dylan Santana MONO # 0.5 103/ul Normal 0.3-0.8 [facility] Comment on above: Performed By: #### C BC #### [facility] [address] [place] [address] Dr. Dylan Santana Monocytes/100 WBC (Bld) 10.1 % Normal 1.7-12.0 [facility] Comment on above: Performed By: #### C BC #### [facility] [address] [place] [address] Dr. Dylan Santana NEUT # 3.0 103/ul Normal 1.4-6.5 [facility] Comment on above: Performed By: #### C BC #### [facility] [address] [place] [address] Dr. Dylan Santana Neutrophils/100 WBC (Bld) 57.0 % Normal 43.0-75.0 [facility] Comment on above: Performed By: #### C BC #### [facility] [address] [place] [address] Dr. Dylan Santana Platelet mean volume (Bld) [Entitic vol] 10.3 fL Normal 9.5-13.5 [facility] Comment on above: Performed By: #### C BC #### [facility] [address] [place] [address] Dr. Dylan Santana PLT 182 103/ul Normal 150-450 [facility] Comment on above: Performed By: #### C BC #### [facility] [address] [place] [address] Dr. Dylan Santana RBC 4.27 106/ul Normal 4.20-5.40 [facility] Comment on above: Performed By: #### C BC #### [facility] [address] [place] [address] Dr. Dylan Santana WBC 5.2 103/ul Normal 4.0-11.0 [facility] Comment on above: Performed By: #### C #### [facility] [address] [address] [address] HEAD WO CONon [...] YONIS PACHECO Date: 2022-06-10 04:35 Normal [facility]24 SARS-CoV-2 (COVID-19) RNA LUIS+probe Ql (Unsp spec) Not detected Normal NOT DETECTED [facility] Comment on above: Result Comment: [...] for this test is supported by the [place] of Health and Human Service's declaration that [...] By: #### L IPID, TSH, CMP #### [facility] [address] [place] [address] Dr. Dylan Santana POINT OF CARE GLUCOSEon 05-24 Glucose [Mass/Vol] 169 mg/dL Critically high 74-106 [facility] Comment on above: Performed By: #### C BC #### [facility] [address] [place] [address] Dr. Dylan Santana PROF 14(COMP METB)on 022 Albumin [Mass/Vol] 3.5 g/dL Normal 3.4-5.0 [facility] Comment on above: Performed By: #### C RAUL, HSTROPN #### [facility] [address] [place] [address] Dr. Dylan Santana Albumin/Globulin [Mass ratio] 0.9 {ratio} Normal [facility] Comment on above: Performed By: #### C MP, HSTROPN #### [facility] [address] [place] [address] Dr. Dylan Santana ALP [Catalytic activity/Vol] 197 U/L Critically high 46-116 [facility] Comment on above: Performed By: #### C MP, HSTROPN #### [facility] [address] [place] [address] Dr. Dylan Santana ALT [Catalytic activity/Vol] 89 U/L Critically high 14-59 [facility] Comment on above: Performed By: #### C MP, HSTROPN #### [facility] [address] [place] [address] Dr. Dylan Santana Anion gap [Moles/Vol] 10.1 mmol/L Normal [facility] Comment on above: Performed By: #### C RAUL, HSTROPN #### [facility] [address] [place] [address] Dr. Dylan Santana AST [Catalytic activity/Vol] 50 U/L Critically high 15-37 [facility] Comment on above: Performed By: #### C RAUL, HSTROPN #### [facility] [address] [place] [address] Dr. Dylan Santana Bilirubin [Mass/Vol] 0.4 mg/dL Normal 0.2-1.0 [facility] Comment on above: Performed By: #### C RAUL, HSTROPN #### [facility] [address] [place] [address] Dr. Dylan Santana Calcium [Mass/Vol] 9.2 mg/dL Normal 8.5-10.1 [facility] Comment on above: Performed By: #### C RAUL, HSTROPN #### [facility] [address] [place] [address] Dr. Dylan Santana Chloride [Moles/Vol] 101 mmol/L Normal 98-107 [facility] Comment on above: Performed By: #### C RAUL, HSTROPN #### [facility] [address] [place] [address] Dr. Dylan Santana CO2 [Moles/Vol] 28.1 mmol/L Normal 21.0-32.0 [facility] Comment on above: Performed By: #### C RAUL, HSTROPN #### [facility] [address] [place] [address] Dr. Dylan Santana Creatinine [Mass/Vol] 1.29 mg/dL Critically high 0.55-1.02 [facility] Comment on above: Performed By: #### C RAUL, HSTROPN #### [facility] [address] [place] [address] Dr. Dylan Santana EGFR-AF ALBANIAN 49 mL/min/1.73m2 Critically low >=60 [facility] Comment on above: Performed By: #### C RAUL, HSTROPN #### [facility] [address] [address] [address] Dylan Santana EGFR-NON AF ALBANIAN 41 mL/min/1.73m2 Critically low >=60 [facility] Comment on above: Performed By: #### C MP, HSTROPN #### [facility] [address] [address] [address] Dylan Santana Globulin (S) [Mass/Vol] 3.9 g/dL Normal [facility] Comment on above: Performed By: #### C MP, HSTROPN #### [facility] [address] [address] [address] Dylan Santana Glucose [Mass/Vol] 231 mg/dL Critically high 74-106 [facility] Comment on above: Performed By: #### C MP, HSTROPN #### [facility] [address] [place] [address] Dr. Dylan Santana Potassium [Moles/Vol] 4.2 mmol/L Normal 3.5-5.1 [facility] Comment on above: Performed By: #### C MP, HSTROPN #### [facility] [address] [address] [address] Dylan Santana Protein [Mass/Vol] 7.4 g/dL Normal 6.4-8.2 [facility] Comment on above: Performed By: #### C MP, HSTROPN #### [facility] [address] [address] [address] Dylan Santana Sodium [Moles/Vol] 135 mmol/L Critically low 136-145 [facility] Comment on above: Performed By: #### C MP, HSTROPN #### [facility] [address] [address] [address] Dylan Santana Urea nitrogen [Mass/Vol] 21.0 mg/dL Critically high 7.0-18.0 [facility] Comment on above: Performed By: #### C MP, HSTROPN #### [facility] [address] [address] [address] Dylan Santana Urea nitrogen/Creatinine [Mass ratio] 16.3 mg/mg Normal [facility] Comment on above: Performed By: #### C MP, HSTROPN #### [facility] [address] [address] [address] Dylan Santana PROF CHEM 8 (BAS METB)on Anion gap [Moles/Vol] 9.2 mmol/L Normal [facility] Comment on above: Performed By: #### L IPID, TSH, CMP #### [facility] [address] [address] [address] Dylan Santana Calcium [Mass/Vol] 8.9 mg/dL Normal 8.5-10.1 [facility] Comment on above: Performed By: #### L IPID, TSH, CMP #### [facility] [address] [place] [address] Dr. Dylan Santana Chloride [Moles/Vol] 104 mmol/L Normal 98-107 [facility] Comment on above: Performed By: #### L IPID, TSH, CMP #### [facility] [address] [place] [address] Dr. Dylan Santana CO2 [Moles/Vol] 27.8 mmol/L Normal 21.0-32.0 [facility] Comment on above: Performed By: #### L IPID, TSH, CMP #### [facility] [address] [place] [address] Dr. Dylan Santana Creatinine [Mass/Vol] 1.14 mg/dL Critically high 0.55-1.02 [facility] Comment on above: Performed By: #### L IPID, TSH, CMP #### [facility] [address] [place] [address] Dr. Dylan Santana EGFR-AF ALBANIAN 57 mL/min/1.73m2 Critically low >=60 [facility] Comment on above: Performed By: #### L IPID, TSH, CMP #### [facility] [address] [place] [address] Dr. Dylan Santana EGFR-NON AF ALBANIAN 47 mL/min/1.73m2 Critically low >=60 [facility] Comment on above: Performed By: #### L IPID, TSH, CMP #### [facility] [address] [place] [address] Dr. Dylan Santana Glucose [Mass/Vol] 176 mg/dL Critically high 74-106 [facility] Comment on above: Performed By: #### L IPID, TSH, CMP #### [facility] [address] [place] [address] Dr. Dylan Santana Potassium [Moles/Vol] 4.0 mmol/L Normal 3.5-5.1 [facility] Comment on above: Performed By: #### L IPID, TSH, CMP #### [facility] [address] [place] [address] Dr. Dylan Santana Sodium [Moles/Vol] 137 mmol/L Normal 136-145 [facility] Comment on above: Performed By: #### L IPID, TSH, CMP #### [facility] [address] [place] [address] Dr. yDlan Santana Urea nitrogen [Mass/Vol] 21.0 mg/dL Critically high 7.0-18.0 [facility] Comment on above: Performed By: #### L IPID, TSH, CMP #### [facility] [address] [place] [address] Dr. Dylan Santana Urea nitrogen/Creatinine [Mass ratio] 18.4 mg/mg Normal [facility] Comment on above: Performed By: #### L IPID, TSH, CMP #### [facility] [address] [place] [address] Dr. Dylan Santana RESPIRATORY PANEL PLUSon Adenovirus Not detected Normal NOT DETECTED [facility] Comment on above: Performed By: #### C BC #### [facility] [address] [place] [address] Dr. Dylan Pastor. Parapertusis Not detected Normal NOT DETECTED [facility] Comment on above: Performed By: #### C BC #### [facility] [address] [place] [address] Dr. Dylan Pastor. Pertussis Not detected Normal NOT DETECTED [facility] Comment on above: Performed By: #### C BC #### [facility] [address] [place] [address] Dr. Dylan Santana Chlamydia Pneumoniae Not detected Normal NOT DETECTED [facility] Comment on above: Performed By: #### C BC #### [facility] [address] [place] [address] Dr. Dylan Santana Coronavirus 229E Not detected Normal NOT DETECTED [facility] Comment on above: Performed By: #### C BC #### [facility] [address] [place] [address] Dr. Dylan Santana Coronavirus HKU1 Not detected Normal NOT DETECTED [facility] Comment on above: Performed By: #### C BC #### [facility] [address] [place] [address] Dr. Dylan Santana Coronavirus NL63 Not detected Normal NOT DETECTED [facility] Comment on above: Performed By: #### C BC #### [facility] [address] [place] [address] Dr. Dylan Santana Coronavirus OC43 Not detected Normal NOT DETECTED [facility] Comment on above: Performed By: #### C BC #### [facility] [address] [place] [address] Dr. Dylan Santana Influenza A H1 2009 Not detected Normal NOT DETECTED [facility] Comment on above: Performed By: #### C BC #### [facility] [address] [place] [address] Dr. Dylan Santana Influenza A H3 Not detected Normal NOT DETECTED [facility] Comment on above: Performed By: #### C BC #### [facility] [address] [place] [address] Dr. Dylan Santana Influenza B Not detected Normal NOT DETECTED [facility] Comment on above: Performed By: #### C BC #### [facility] [address] [place] [address] Dr. Dylan Santana Metapneumovirus Not detected Normal NOT DETECTED [facility] Comment on above: Performed By: #### C BC #### [facility] [address] [place] [address] Dr. Dylan Santana Mycoplas. Pneumoniae Not detected Normal NOT DETECTED [facility] Comment on above: Performed By: #### C BC #### [facility] [address] [place] [address] Dr. Dylan Santana Parainfluenza 1 Not detected Normal NOT DETECTED [facility] Comment on above: Performed By: #### C BC #### [facility] [address] [place] [address] Dr. Dylan Santana Parainfluenza 2 Not detected Normal NOT DETECTED [facility] Comment on above: Performed By: #### C BC #### [facility] [address] [place] [address] Dr. Dylan Santana Parainfluenza 3 Not detected Normal NOT DETECTED [facility] Comment on above: Performed By: #### C BC #### [facility] [address] [place] [address] Dr. Dylan Santana Parainfluenza 4 Not detected Normal NOT DETECTED [facility] Comment on above: Performed By: #### C BC #### [facility] [address] [place] [address] Dr. Dylan Santana Rhino/Enterovirus Not detected Normal NOT DETECTED [facility] Comment on above: Performed By: #### C BC #### [facility] [address] [place] [address] Dr. Dylan Santana RP2 Header 1 RESPIRATORY PANEL: VIRUSES Normal [facility] Comment on above: Performed By: #### C BC #### [facility] [address] [place] [address] Dr. Dylan Santana RP2 Header 2 RESPIRATORY PANEL: BACTERIA Normal [facility] Comment on above: Performed By: #### C BC #### [facility] [address] [place] [address] Dr. Dylan Santana RSV Detected Critically abnormal NOT DETECTED [facility] Comment on above: Performed By: #### C BC #### [facility] [address] [place] [address] Dr. Dylan Santana SARS-CoV-2 (COVID-19) RNA LUIS+probe Ql (Unsp spec) Not detected Normal NOT DETECTED [facility] Comment on above: Performed By: #### C BC #### [facility] [address] [place], [place] [address] Dr. Dylan Santana TROPONIN, HIGH SENSITIVITYon 06-10-2022 HSTROP 18.5 pg/mL Normal 4.0-51.3 [facility] Comment on above: Result Comment: CUT- OFF POINTS HAVE BEEN ESTABLISHED BASED ON THE FOURTH UNIVERSAL DEFINITIONS OF MYOCARDIAL INFARCTION. THE UPPER REFERENCE LIMIT (URL) OF TROPONIN, DEFINED THE 99TH PERCENTILE OF cTnI DISTRIBUTION IN A REFERENCE POPULATION, HAS BEEN CONFIRMED THE DECISION THRESHOLD FOR [place] DIAGNOSIS. Performed By: #### L IPID, TSH, CMP #### [facility] [address] [id number] Dylan Santana HSTROP 18.8 pg/mL Normal 4.0-51.3 [facility] Comment on above: Result Comment: CUT- OFF POINTS HAVE BEEN ESTABLISHED BASED ON THE FOURTH UNIVERSAL DEFINITIONS OF MYOCARDIAL INFARCTION. THE UPPER REFERENCE LIMIT (URL) OF TROPONIN, DEFINED THE 99TH PERCENTILE OF cTnI DISTRIBUTION IN A REFERENCE POPULATION, HAS BEEN CONFIRMED THE DECISION THRESHOLD FOR [place] DIAGNOSIS. Performed By: #### C MP, HSTROPN #### [facility] [address] [id number] Dylan Santana XR CHEST 1 Von [...] YONIS PACHECO Date: 2022-06-10 02:13 Normal [facility] ECHOCARDIO M/2D COMPLETEon 1 07-08-2021 ECHOCARDIO M/2D COMPLETE Patient: LIBRA NOONAN Exam Date: 05/08/2022 : 1950 Gender:F Ordering : RIMA JAIN [facility] Admission #: [id number] Family : Order #: [id number] CLICK HERE TO VIEW EXAM ECHOCARDIOGRAM REPORT [...] Capellan M.D. on 05/09/2022 at 20:11 Normal [facility] NM STRESS/REST MULTIon 03-08 [place] STRESS/REST MULTI Patient: LIBRA NOONAN Exam Date: 03/08/2022 : 1950 Gender:F Ordering : DR GARRISON BELL M.D. Admission #: [id number] Family : Order #: [id number] CLICK HERE TO VIEW EXAM RADIOLOGY REPORT [...] DEFECT: LOCATION: Basal anterior. Mid-anterior. Apical anterior. [place]. SIZE: Medium (3-4 segments). SEVERITY: Moderate. TYPE: [...] MD on 03/09/2022 at 11:54 Normal [facility] CBC AUTO DIFFon 01-24-2022 BASO # 0.0 103/ul Normal 0.0-0.1 [facility] Comment on above: Performed By: #### C BC #### [facility] [address] [place] [address] Dr. Dylan Santana Basophils/100 WBC (Bld) 0.5 % Normal 0.2-2.0 [facility] Comment on above: Performed By: #### C BC #### [facility] [address] [place] [address] Dr. Dylan Santana EO # 0.2 103/ul Normal 0.0-0.7 [facility] Comment on above: Performed By: #### C BC #### [facility] [address] [place] [address] Dr. Dylan Santana Eosinophils/100 WBC (Bld) 2.8 % Normal 0.9-7.0 [facility] Comment on above: Performed By: #### C BC #### [facility] [address] [place] [address] Dr. Dylan Santana Erythrocyte distribution width (RBC) [Ratio] 13.0 % Normal 11.0-15.0 [facility] Comment on above: Performed By: #### C BC #### [facility] [address] [place] [address] Dr. Dylan Santana Hematocrit (Bld) [Volume fraction] 40.8 % Normal 36.0-48.0 [facility] Comment on above: Performed By: #### C BC #### [facility] [address] [place] [address] Dr. Dylan Santana Hemoglobin (Bld) [Mass/Vol] 13.0 g/dL Normal 12.0-16.0 [facility] Comment on above: Performed By: #### C BC #### [facility] [address] [place] [address] Dr. Dylan Santana IG # 0.04 10e3/ul Critically high 0.00-0.03 [facility] Comment on above: Performed By: #### C BC #### [facility] [address] [place] [address] Dr. Dylan Santana IG % 0.5 % Normal 0.0-0.5 [facility] Comment on above: Performed By: #### C BC #### [facility] [address] [place] [address] Dr. Dylan Santana LYMPH # 2.7 103/ul Normal 1.2-3.8 [facility] Comment on above: Performed By: #### C BC #### [facility] [address] [place] [address] Dr. Dylan Santana Lymphocytes/100 WBC (Bld) 34.3 % Normal 20.5-60.0 [facility] Comment on above: Performed By: #### C BC #### [facility] [address] [place] [address] Dr. Dylan Santana MANUAL DIFF REQ NO Normal [facility] Comment on above: Performed By: #### C BC #### [facility] [address] [place] [address] Dr. Dylan Santana MCH (RBC) [Entitic mass] 30.0 pg Normal 26.7-34.0 [facility] Comment on above: Performed By: #### C BC #### [facility] [address] [address] [address] Dylan Santana MCHC (RBC) [Mass/Vol] 31.9 g/dL Normal 29.9-35.2 [facility] Comment on above: Performed By: #### C BC #### [facility] [address] [place] [address] Dr. Dylan Santana MCV (RBC) [Entitic vol] 94.0 fL Normal 81.0-99.0 [facility] Comment on above: Performed By: #### C BC #### [facility] [address] [place] [address] Dr. Dylan Santana MONO # 0.4 103/ul Normal 0.3-0.8 [facility] Comment on above: Performed By: #### C BC #### [facility] [address] [place] [address] Dr. Dylan Santana Monocytes/100 WBC (Bld) 5.1 % Normal 1.7-12.0 [facility] Comment on above: Performed By: #### C BC #### [facility] [address] [place] [address] Dr. Dylan Santana NEUT # 4.4 103/ul Normal 1.4-6.5 [facility] Comment on above: Performed By: #### C BC #### [facility] [address] [place] [address] Dr. Dylan Santana Neutrophils/100 WBC (Bld) 56.8 % Normal 43.0-75.0 [facility] Comment on above: Performed By: #### C BC #### [facility] [address] [place] [address] Dr. Dylan Santana Platelet mean volume (Bld) [Entitic vol] 10.7 fL Normal 9.5-13.5 [facility] Comment on above: Performed By: #### C BC #### [facility] [address] [place] [address] Dr. Dylan Santana PLT 212 103/ul Normal 150-450 [facility] Comment on above: Performed By: #### C BC #### [facility] [address] [place] [address] Dr. Dylan Santana RBC 4.34 106/ul Normal 4.20-5.40 [facility] Comment on above: Performed By: #### C BC #### [facility] [address] [place] [address] Dr. Dylan Santana WBC 7.8 103/ul Normal 4.0-11.0 [facility] Comment on above: Performed By: #### C BC #### [facility] [address] [place] [address] Dr. Dylan Santana FREE T4on 01-24-2022 Free T4 [Mass/Vol] 1.02 ng/dL Normal 0.76-1.46 [facility] Comment on above: Performed By: #### F T4 #### [facility] [address] [place] [address] Dr. Dylan Santana GLYCOHEMOGLOBIN A1Con 2021 ADA RECOMMENDATION SEE BELOW Normal [facility] Comment on above: Result Comment: ADA RECOMMENDED LIMIT 4.0 - 6.0 ADA THERAPEUTIC TARGET < 7.0 ACTION SUGGESTED > 7.0 Performed By: #### C BC #### [facility] [address] [place] [address] Dr. Dylan Santana Glucose [Mass/Vol] 189 mg/dL Normal [facility] Comment on above: Performed By: #### C BC #### [facility] [address] [place] [address] Dr. Dylan Santana HbA1c (Bld) [Mass fraction] 8.2 % Critically high 4.5-6.2 [facility] Comment on above: Performed By: #### C BC #### [facility] [address] [place] [address] Dr. Dylan Santana LIPID PROFILEon 01-24-2022 CHOL-HDL RATIO NORM SEE BELOW Normal [facility] Comment on above: Result Comment: 3.3 - 4.4 LOW RISK 4.4 - 7.1 AVERAGE RISK 7.1 - 11.0 MODERATE RISK >11.0 HIGH RISK Performed By: #### L IPID, TSH, CMP #### [facility] [address] [address] [address] Dylan Santana Cholesterol [Mass/Vol] 235 mg/dL Critically high <=200 [facility] Comment on above: Performed By: #### L IPID, TSH, CMP #### [facility] [address] [address] [address] Dylan Santana Cholesterol in HDL [Mass/Vol] 64 mg/dL Critically high 40-60 [facility] Comment on above: Performed By: #### L IPID, TSH, CMP #### [facility] [address] [address] [address] Dylan Santana Cholesterol in LDL [Mass/Vol] 139.8 mg/dL Normal [facility] Comment on above: Performed By: #### L IPID, TSH, CMP #### [facility] [address] [address] [address] Dylan Santana Cholesterol.total/C holesterol in HDL [Mass ratio] 3.7 {ratio} Normal [facility] Comment on above: Performed By: #### L IPID, TSH, CMP #### [facility] [address] [address] [address] Dylan Santana HDL NORMAL > or = 60 mg/dl - LO W CARDIOVASCULAR RISK <40 mg/dl - HIGH CARDIOVASCULAR RISK Normal [facility] Comment on above: Performed By: #### L IPID, TSH, CMP #### [facility] [address] [address] [address] Dylan Santana LDL CALC NORMAL SEE BELOW Normal [facility] Comment on above: Result Comment: <100 mg/dl OPTIMAL 100 - 129 mg/dl NEAR OR ABOVE OPTIMAL 130 - 159 mg/dl BORDERLINE HIGH 160 - 189 mg/dl HIGH >190 mg/dl VERY HIGH Performed By: #### L IPID, TSH, CMP #### [facility] [address] [address] [address] Dylan Santana Triglyceride [Mass/Vol] 156 mg/dL Critically high <=150 [facility] Comment on above: Performed By: #### L IPID, TSH, CMP #### [facility] [address] [address] [address] Dylan Santana VLDL CALC 31.2 mg/dL Normal [facility] Comment on above: Performed By: #### L IPID, TSH, CMP #### [facility] [address] [address] [address] Dylan Santana PROF 14(COMP METB)on 022 Albumin [Mass/Vol] 3.3 g/dL Critically low 3.4-5.0 [facility] Comment on above: Performed By: #### L IPID, TSH, CMP #### [facility] [address] [address] [address] Dylan Santana Albumin/Globulin [Mass ratio] 0.9 {ratio} Normal [facility] Comment on above: Performed By: #### L IPID, TSH, CMP #### [facility] [address] [place] [address] Dr. Dylan Santana ALP [Catalytic activity/Vol] 109 U/L Normal 46-116 [facility] Comment on above: Performed By: #### L IPID, TSH, CMP #### [facility] [address] [place] [address] Dr. Dylan Santana ALT [Catalytic activity/Vol] 25 U/L Normal 14-59 [facility] Comment on above: Performed By: #### L IPID, TSH, CMP #### [facility] [address] [place] [address] Dr. Dylan Santana Anion gap [Moles/Vol] 14.7 mmol/L Normal [facility] Comment on above: Performed By: #### L IPID, TSH, CMP #### [facility] [address] [place] [address] Dr. Dylan Santana AST [Catalytic activity/Vol] 12 U/L Critically low 15-37 [facility] Comment on above: Performed By: #### L IPID, TSH, CMP #### [facility] [address] [place] [address] Dr. Dylan Santana Bilirubin [Mass/Vol] 0.6 mg/dL Normal 0.2-1.0 [facility] Comment on above: Performed By: #### L IPID, TSH, CMP #### [facility] [address] [address] [address] Dylan Santana Calcium [Mass/Vol] 8.8 mg/dL Normal 8.5-10.1 [facility] Comment on above: Performed By: #### L IPID, TSH, CMP #### [facility] [address] [place] [address] Dr. Dylan Santana Chloride [Moles/Vol] 102 mmol/L Normal 98-107 [facility] Comment on above: Performed By: #### L IPID, TSH, CMP #### [facility] [address] [place] [address] Dr. Dylan Santana CO2 [Moles/Vol] 27.5 mmol/L Normal 21.0-32.0 [facility] Comment on above: Performed By: #### L IPID, TSH, CMP #### [facility] [address] [place] [address] Dr. Dylan Santana Creatinine [Mass/Vol] 1.14 mg/dL Critically high 0.55-1.02 [facility] Comment on above: Performed By: #### L IPID, TSH, CMP #### [facility] [address] [place] [address] Dr. Dylan Santana EGFR-AF ALBANIAN 57 mL/min/1.73m2 Critically low >=60 [facility] Comment on above: Performed By: #### L IPID, TSH, CMP #### [facility] [address] [place] [address] Dr. Dylan Santana EGFR-NON AF ALBANIAN 47 mL/min/1.73m2 Critically low >=60 [facility] Comment on above: Performed By: #### L IPID, TSH, CMP #### [facility] [address] [place] [address] Dr. Dylan Santana Globulin (S) [Mass/Vol] 3.7 g/dL Normal [facility] Comment on above: Performed By: #### L IPID, TSH, CMP #### [facility] [address] [place] [address] Dr. Dylan Santana Glucose [Mass/Vol] 249 mg/dL Critically high 74-106 [facility] Comment on above: Performed By: #### L IPID, TSH, CMP #### [facility] [address] [place] [address] Dr. Dylan Santana Potassium [Moles/Vol] 4.2 mmol/L Normal 3.5-5.1 [facility] Comment on above: Performed By: #### L IPID, TSH, CMP #### [facility] [address] [place] [address] Dr. Dylan Santana Protein [Mass/Vol] 7.0 g/dL Normal 6.4-8.2 [facility] Comment on above: Performed By: #### L IPID, TSH, CMP #### [facility] [address] [place] [address] Dr. Dylan Santana Sodium [Moles/Vol] 140 mmol/L Normal 136-145 [facility] Comment on above: Performed By: #### L IPID, TSH, CMP #### [facility] [address] [place] [address] Dr. Dylan Santana Urea nitrogen [Mass/Vol] 20.0 mg/dL Critically high 7.0-18.0 [facility] Comment on above: Performed By: #### L IPID, TSH, CMP #### [facility] [address] [place] [address] Dr. Dylan Santana Urea nitrogen/Creatinine [Mass ratio] 17.5 mg/mg Normal [facility] Comment on above: Performed By: #### L IPID, TSH, CMP #### [facility] [address] [place] [address] Dr. Dylan Santana TSHon 01-24-2022 TSH 3.673 uIU/mL Normal 0.358-3.740 [facility] Comment on above: Performed By: #### L IPID, TSH, CMP #### [facility] [address] [place] [address] Dr. Dylan Santana COVID Quick Testingon 2021 Result Negative [employer] [facility] 09-22-2021 Lab Reports [id number] CD:127 Fatemeh Littlejohn [facility] Vital Signs Date Time Vital Sign Value Performing Clinician Facility 07-08-2024 11:33-0500 Body height 157.48 cm [facility] 07-08-2024 11:33-0500 Body mass index (BMI) [Ratio] 58 kg/m2 [facility] 07-08-2024 11:33-0500 Body weight 143.9 kg [facility] 07-08-2024 11:33-0500 Diastolic blood pressure 83 mm[Hg] [facility] 07-08-2024 11:33-0500 Heart rate 84 /min [facility] 07-08-2024 11:33-0500 Respiratory rate 16 /min [facility] 07-08-2024 11:33-0500 Systolic blood pressure 136 mm[Hg] [facility] 04-06-2024 11:38-0400 Body height 157.48 cm MD Garrison Bell Work Phone: [facility] 04-06-2024 11:38-0400 Body mass index (BMI) [Ratio] 57.8 kg/m2 MD Garrison Bell Work Phone: [facility] 04-06-2024 11:38-0400 Body weight 143.44 kg MD Garrison Bell Work Phone: [facility] 04-06-2024 11:38-0400 Diastolic blood pressure 82 mm[Hg] MD Garrison Bell Work Phone: [facility] 04-06-2024 11:38-0400 Heart rate 77 /min MD Garrison Bell Work Phone: [facility] 04-06-2024 11:38-0400 Respiratory rate 18 /min MD Garrison Bell Work Phone: [facility] 04-06-2024 11:38-0400 SaO2% (BldA) [Mass fraction] 98 % MD Garrison Bell Work Phone: [facility] 04-06-2024 11:38-0400 Systolic blood pressure 128 mm[Hg] MD Garrison Bell Work Phone: [facility] 03-24-2024 10:26-0400 Diastolic blood pressure 81 mm[Hg] MD Garrison Bell Work Phone: [facility] 03-24-2024 10:26-0400 Heart rate 72 /min MD Garrison Bell Work Phone: [facility] 03-24-2024 10:26-0400 Respiratory rate 16 /min MD Garrison Bell Work Phone: [facility] 03-24-2024 10:26-0400 SaO2% (BldA) [Mass fraction] 96 % MD Garrison Bell Work Phone: [facility] 03-24-2024 10:26-0400 Systolic blood pressure 165 mm[Hg] MD Garrison Bell Work Phone: [facility] 03-24-2024 09:45-0400 Inhaled oxygen flow rate 3 L/min MD Garrison Bell Work Phone: [facility] 03-24-2024 08:54-0400 Body height 157.48 cm MD Garrison Bell Work Phone: [facility] 03-24-2024 08:54-0400 Body weight 144.69 kg MD Garrison Bell Work Phone: [facility] 03-23-2024 08:24-0400 Body height 157.48 cm [facility] 03-23-2024 08:24-0400 Body mass index (BMI) [Ratio] 59.1 kg/m2 [facility] 03-23-2024 08:24-0400 Body temperature 98.5 [degF] [facility] 03-23-2024 08:24-0400 Body weight 146.68 kg [facility] 03-23-2024 08:24-0400 Diastolic blood pressure 85 mm[Hg] [facility] 03-23-2024 08:24-0400 Heart rate 79 /min [facility] 03-23-2024 08:24-0400 Respiratory rate 20 /min [facility] 03-23-2024 08:24-0400 SaO2% (BldA) [Mass fraction] 98 % [facility] 03-23-2024 08:24-0400 Systolic blood pressure 157 mm[Hg] [facility] 01-15-2024 10:44-0400 Body height 157.48 cm MD Garrison Bell Work Phone: [facility] 01-15-2024 10:44-0400 Body mass index (BMI) [Ratio] 56.8 kg/m2 MD Garrison Bell Work Phone: [facility] 01-15-2024 10:44-0400 Body weight 141 kg MD Garrison Bell Work Phone: [facility] 12-04-2023 11:38-0400 Body height 157.48 cm MD Garrison Bell Work Phone: [facility] 12-04-2023 11:38-0400 Body mass index (BMI) [Ratio] 57 kg/m2 MD Garrison Bell Work Phone: [facility] 12-04-2023 11:38-0400 Body weight 141.52 kg MD Garrison Bell Work Phone: [facility] 12-04-2023 11:38-0400 Diastolic blood pressure 80 mm[Hg] MD Garrison Bell Work Phone: [facility] 12-04-2023 11:38-0400 Heart rate 80 /min MD Garrison Bell Work Phone: [facility] 12-04-2023 11:38-0400 Systolic blood pressure 125 mm[Hg] MD Garrison Bell Work Phone: [facility] 10-15-2023 10:57-0400 Diastolic blood pressure 82 mm[Hg] MD Garrison Bell Work Phone: [facility] 10-15-2023 10:57-0400 Heart rate 81 /min MD Garrison Bell Work Phone: [facility] 10-15-2023 10:57-0400 Respiratory rate 16 /min MD Garrison Bell Work Phone: [facility] 10-15-2023 10:57-0400 SaO2% (BldA) [Mass fraction] 97 % MD Garrison Bell Work Phone: [facility] 10-15-2023 10:57-0400 Systolic blood pressure 147 mm[Hg] MD Garrison Bell Work Phone: [facility] 10-15-2023 10:16-0400 Inhaled oxygen flow rate 3 L/min MD Garrison Bell Work Phone: [facility] 10-15-2023 09:44-0400 Body height 157.48 cm MD Garrison Bell Work Phone: [facility] 10-15-2023 09:44-0400 Body weight 141.52 kg MD Garrison Bell Work Phone: [facility] 09-04-2023 11:24-0400 Body height 160.02 cm [facility] 09-04-2023 11:24-0400 Body mass index (BMI) [Ratio] 57 kg/m2 [facility] 09-04-2023 11:24-0400 Body weight 146.11 kg [facility] 09-04-2023 11:24-0400 Diastolic blood pressure 97 mm[Hg] [facility] 09-04-2023 11:24-0400 Heart rate 86 /min [facility] 09-04-2023 11:24-0400 SaO2% (BldA) [Mass fraction] 98 % [facility] 09-04-2023 11:24-0400 Systolic blood pressure 166 mm[Hg] [facility] 06-05-2023 11:30-0500 Body height 160.02 cm Garrison Bell Other [employer] Other 06-05-2023 11:30-0500 Body mass index (BMI) [Ratio] 55.62 kg/m2 Garrison Bell Other [facility] [employer] Other 06-05-2023 11:30-0500 Body weight 142.43 kg Garrison Bell Other [facility] [employer] Other 06-05-2023 11:30-0500 Diastolic blood pressure 78 mm[Hg] Garrison Bell Other [facility] [employer] Other 06-05-2023 11:30-0500 SaO2% (BldA) [Mass fraction] 98 % Garrison Bell Other [facility] [employer] Other 06-05-2023 11:30-0500 Systolic blood pressure 132 mm[Hg] Garrison Bell Other [facility] [employer] Other 05-28-2023 11:00-0500 Diastolic blood pressure 97 mm[Hg] MD Garrison Bell Work Phone: [facility] 05-28-2023 11:00-0500 Heart rate 79 /min MD Garrison Bell Work Phone: [facility] 05-28-2023 11:00-0500 Respiratory rate 16 /min MD Garrison Bell Work Phone: [facility] 05-28-2023 11:00-0500 SaO2% (BldA) [Mass fraction] 98 % MD Garrison Bell Work Phone: [facility] 05-28-2023 11:00-0500 Systolic blood pressure 173 mm[Hg] MD Garrison Bell Work Phone: [facility] 05-28-2023 10:15-0500 Inhaled oxygen flow rate 3 L/min MD Garrison Bell Work Phone: [facility] 05-28-2023 10:04-0500 Body height 157.48 cm MD Garrison Bell Work Phone: [facility] 05-28-2023 10:04-0500 Body weight 141.52 kg MD Garrison Bell Work Phone: [facility] 05-07-2023 10:15-0500 Diastolic blood pressure 87 mm[Hg] MD Garrison Bell Work Phone: [facility] 05-07-2023 10:15-0500 Heart rate 74 /min MD Garrison Bell Work Phone: [facility] 05-07-2023 10:15-0500 Respiratory rate 16 /min MD Garrison Bell Work Phone: [facility] 05-07-2023 10:15-0500 SaO2% (BldA) [Mass fraction] 95 % MD Garrison Bell Work Phone: [facility] 05-07-2023 10:15-0500 Systolic blood pressure 173 mm[Hg] MD Garrison Bell Work Phone: [facility] 05-07-2023 09:30-0500 Inhaled oxygen flow rate 3 L/min MD Garrison Bell Work Phone: [facility] 05-07-2023 08:40-0500 Body height 157.48 cm MD Garrison Bell Work Phone: [facility] 05-07-2023 08:40-0500 Body weight 141.52 kg MD Garrison Bell Work Phone: [facility] 03-06-2023 11:30-0400 Body height 160.02 cm Garrison Bell Other [facility] [employer] Other 03-06-2023 11:30-0400 Body mass index (BMI) [Ratio] 55.26 kg/m2 Garrison Bell Other [facility] [employer] Other 03-06-2023 11:30-0400 Body weight 141.52 kg Garrison Bell Other [facility] [employer] Other 03-06-2023 11:30-0400 Diastolic blood pressure 72 mm[Hg] Garrison Bell Other [facility] [employer] Other 03-06-2023 11:30-0400 Respiratory rate 12 /min Garrison Bell Other [facility] [employer] Other 03-06-2023 11:30-0400 Systolic blood pressure 118 mm[Hg] Garrison Bell Other [facility] [employer] Other 02-12-2023 11:10-0400 Diastolic blood pressure 80 mm[Hg] MD Garrison Bell Work Phone: [facility] 02-12-2023 11:10-0400 Heart rate 80 /min MD Garrison Bell Work Phone: [facility] 02-12-2023 11:10-0400 Respiratory rate 18 /min MD Garrison Bell Work Phone: [facility] 02-12-2023 11:10-0400 SaO2% (BldA) [Mass fraction] 96 % MD Garrison Bell Work Phone: [facility] 02-12-2023 11:10-0400 Systolic blood pressure 145 mm[Hg] MD Garrison Bell Work Phone: [facility] 02-12-2023 10:28-0400 Inhaled oxygen flow rate 3 L/min MD Garrison Bell Work Phone: [facility] 02-12-2023 09:59-0400 Body height 157.48 cm MD Garrison Bell Work Phone: [facility] 02-12-2023 09:59-0400 Body weight 92.07 kg MD Garrison Bell Work Phone: [facility] 12-05-2022 11:30-0400 Body height 160.02 cm Garrison Bell Other [employer] Other 12-05-2022 11:30-0400 Body mass index (BMI) [Ratio] 55.09 kg/m2 Garrison Bell Other [employer] Other 12-05-2022 11:30-0400 Body temperature 97.8 [degF] Garrison Bell Other [employer] Other 12-05-2022 11:30-0400 Body weight 141.07 kg Garrison Bell Other [employer] Other 12-05-2022 11:30-0400 Diastolic blood pressure 50 mm[Hg] Garrison Bell Other [employer] Other 12-05-2022 11:30-0400 Systolic blood pressure 92 mm[Hg] Garrison Bell Other [place] [employer] Other 10-23-2022 09:42-0400 Diastolic blood pressure 80 mm[Hg] MD Garrison Bell Work Phone: [facility] 10-23-2022 09:42-0400 Heart rate 75 /min MD Garrison Bell Work Phone: [facility] 10-23-2022 09:42-0400 Respiratory rate 18 /min MD Garrison Bell Work Phone: [facility] 10-23-2022 09:42-0400 SaO2% (BldA) [Mass fraction] 98 % MD Garrison Bell Work Phone: [facility] 10-23-2022 09:42-0400 Systolic blood pressure 142 mm[Hg] MD Garrison Bell Work Phone: [facility] 10-23-2022 09:03-0400 Inhaled oxygen flow rate 3 L/min MD Garrison Bell Work Phone: [facility] 10-23-2022 08:15-0400 Body height 157.48 cm MD Garrison Bell Work Phone: [facility] 10-23-2022 08:15-0400 Body weight 141.97 kg MD Garrison Bell Work Phone: [facility] 10-09-2022 16:00-0400 Body height 160.02 cm Alka Hankins Other [facility] [employer] Other 10-09-2022 16:00-0400 Body mass index (BMI) [Ratio] 55.26 kg/m2 Alkam[facility]abel Hankins Other [employer] Other 10-09-2022 16:00-0400 Body weight 141.52 kg Alkamarisabel Hankins Other [employer] Other 09-04-2022 12:30-0400 Body height 160.02 cm Garrison Bell Other [employer] Other 09-04-2022 12:30-0400 Body mass index (BMI) [Ratio] 55.26 kg/m2 Garrison Bell Other [employer] Other 09-04-2022 12:30-0400 Body weight 141.52 kg Garrison Bell Other [employer] Other 09-04-2022 12:30-0400 Diastolic blood pressure 82 mm[Hg] Garrison Bell Other [employer] Other 09-04-2022 12:30-0400 Systolic blood pressure 128 mm[Hg] Garrison Bell Other [employer] Other 08-07-2022 08:38-0500 Diastolic blood pressure 55 mm[Hg] MD Garrison Bell Work Phone: [facility] 08-07-2022 08:38-0500 Heart rate 78 /min MD Garrison Bell Work Phone: [facility] 08-07-2022 08:38-0500 Respiratory rate 16 /min MD Garrison Bell Work Phone: [facility] 08-07-2022 08:38-0500 SaO2% (BldA) [Mass fraction] 95 % MD Garrison Bell Work Phone: [facility] 08-07-2022 08:38-0500 Systolic blood pressure 130 mm[Hg] MD Garrison Bell Work Phone: [facility] 08-07-2022 07:59-0500 Inhaled oxygen flow rate 3 L/min MD Garrison Bell Work Phone: [facility] 08-07-2022 07:23-0500 Body height 157.48 cm MD Garrison Bell Work Phone: [facility] 08-07-2022 07:23-0500 Body weight 141.97 kg MD Garrison Bell Work Phone: [facility] 02-27-2022 14:15-0400 Body height 160.02 cm Zena García Other [employer] Other 02-27-2022 14:15-0400 Body mass index (BMI) [Ratio] 53.67 kg/m2 Zena García Other [employer] Other 02-27-2022 14:15-0400 Body weight 137.44 kg Zena García Other [employer] Other 02-06-2022 15:00-0400 Body height 160.02 cm Zena García Other [employer] Other 02-06-2022 15:00-0400 Body mass index (BMI) [Ratio] 53.67 kg/m2 Zena García Other [employer] Other 02-06-2022 15:00-0400 Body weight 137.44 kg Zena Ricky Other [employer] Other 01-03-2022 10:35-0400 Body height 160.02 cm Jazz Nance Other [employer] Other 01-03-2022 10:35-0400 Body mass index (BMI) [Ratio] 53.67 kg/m2 Jazz Melendezmond Other [employer] Other 01-03-2022 10:35-0400 Body temperature 98.5 [degF] Jazz Nance Other [employer] Other 01-03-2022 10:35-0400 Body weight 137.44 kg Jazz Nance Other [employer] Other 01-03-2022 10:35-0400 SaO2% (BldA) [Mass fraction] 95 % Jazz Nance Other [employer] Other 11-06-2021 15:45-0400 Body height 160.02 cm Zena García Other [employer] Other 03-22-2021 10:45-0400 Body height 160.02 cm Zena García Other [employer] Other 03-22-2021 10:45-0400 Body mass index (BMI) [Ratio] 50.3 kg/m2 Zena García Other [employer] Other 03-22-2021 10:45-3535 Body weight 128.82 kg Zena García Other [facility] [employer] Other Encounters Encounter Date Encounter Type Care Provider Facility Start: 07-08-2024 End: 07-08-2024 ambulatory [facility] Work Phone: Start: 07-08-2024 End: 07-08-2024 Patient encounter procedure [facility] Work Phone: Start: 07-07-2024 End: 07-07-2024 ambulatory [facility] Work Phone: Start: 07-07-2024 End: 07-07-2024 Patient encounter procedure [facility] Work Phone: Start: 06-30-2024 End: 06-30-2024 ambulatory [facility] Work Phone: Start: 06-30-2024 End: 06-30-2024 Patient encounter procedure [facility] Physician [facility] Work Phone: Start: 04-06-2024 End: 04-06-2024 ambulatory MD Garrison Bell Work Phone: [facility] Work Phone: Start: 04-06-2024 End: 04-06-2024 Patient encounter procedure MD Garrison Bell Work Phone: [facility] Work Phone: Start: 03-24-2024 Non-patient / Non-visit MD Chelsea Bell Work Phone: [facility] Physician [facility] Pain Management BC Work Phone: Start: 03-24-2024 End: 03-24-2024 Admission to same day surgery center MD Garrison Bell Work Phone: [facility] Work Phone: Start: 03-24-2024 End: 03-24-2024 ambulatory MD Garrison Bell Work Phone: [facility] Work Phone: Start: 03-23-2024 End: 03-23-2024 ambulatory [facility] Work Phone: Start: 03-23-2024 End: 03-23-2024 Patient encounter procedure [facility] Nephrology Sandra Work Phone: Start: 03-17-2024 End: [...] SWS DERM Start: 03-16-2024 Non-patient / Non-visit [facility] Work Phone: Start: 03-16-2024 End: 03-16-2024 ambulatory [facility] Start: 03-12-2024 End: 03-12-2024 ambulatory [facility] Work Phone: Start: 03-12-2024 End: 03-12-2024 Patient encounter procedure [facility] Pain Management BC Work Phone: Start: 03-10-2024 End: 03-10-2024 ambulatory [facility] Work Phone: Start: 03-10-2024 End: 03-10-2024 Patient encounter procedure [facility] Physician [facility] Work Phone: Start: 01-15-2024 End: 01-15-2024 ambulatory MD Garrison Bell Work Phone: [facility] Work Phone: Start: 01-15-2024 End: 01-15-2024 Patient encounter procedure MD Garrison Bell Work Phone: [facility] Pain Management [facility] Work Phone: Start: 01-09-2024 Non-patient / Non-visit MD Chelsea Bell Work Phone: [facility] Work Phone: Start: 12-30-2023 Non-patient / Non-visit MD Chelsea Bell Work Phone: [facility] Work Phone: Start: 12-09-2023 Non-patient / Non-visit MD Chelsea Bell Work Phone: [facility] Work Phone: Start: 12-04-2023 End: 12-04-2023 ambulatory MD Garrison Bell Work Phone: [facility] Work Phone: Start: 12-04-2023 End: 12-04-2023 Patient encounter procedure MD Garrison Bell Work Phone: [facility] Physician [facility] Work Phone: Start: 11-29-2023 Non-patient / Non-visit MD Chelsea Bell Work Phone: [facility] Work Phone: Start: 11-25-2023 End: 11-25-2023 ambulatory [facility] Start: 11-04-2023 Non-patient / Non-visit MD Chelsea Bell Work Phone: [facility] Work Phone: Start: 10-25-2023 End: 10-25-2023 ambulatory [facility] Start: 10-17-2023 End: 10-17-2023 ambulatory MD Garrison Bell Work Phone: [facility] Work Phone: Start: 10-17-2023 End: 10-17-2023 Patient encounter procedure MD Garrison Bell Work Phone: [facility] Work Phone: Start: 10-17-2023 Non-patient / Non-visit MD Chelsea Bell Work Phone: [facility] Work Phone: Start: 10-15-2023 Non-patient / Non-visit MD Chelsea Bell Work Phone: [facility] Work Phone: Start: 10-15-2023 End: 10-15-2023 Admission to same day surgery center MD Garrison Bell Work Phone: [facility] Work Phone: Start: 10-15-2023 End: 10-15-2023 ambulatory MD Garrison Bell Work Phone: [facility] Work Phone: Start: 10-10-2023 End: 10-10-2023 ambulatory [facility] Work Phone: Start: 10-10-2023 End: 10-10-2023 Patient encounter procedure [facility] Work Phone: Start: 10-09-2023 End: 10-09-2023 ambulatory [facility] Start: 09-13-2023 End: 09-13-2023 ambulatory MOHAMAD [facility] Start: 09-04-2023 End: 09-04-2023 Patient encounter procedure [facility] Physician [facility] Work Phone: Start: 08-16-2023 Non-patient / Non-visit [facility] [employer] Work Phone: Start: 07-15-2023 End: 07-15-2023 ambulatory Garrison Bell Other [employer] Other Start: 07-15-2023 Telephone encounter Garrison Bell [facility] Start: 06-07-2023 End: 06-07-2023 ambulatory Garrison Bell Other [employer] Other Start: 06-07-2023 Telephone encounter Garrison Bell [facility] Start: 06-05-2023 End: 06-05-2023 ambulatory Garrison Bell Other [employer] Other Start: 06-05-2023 Office outpatient vi sit 25 minutes Garrison Bell [facility] Start: 05-28-2023 (Procedure) Short Eric Villanueva [facility] Start: 05-28-2023 End: 05-28-2023 Admission to same day surgery center MD Garrison Bell Work Phone: [facility] Work Phone: Start: 05-28-2023 End: 05-28-2023 ambulatory MD Garrison Bell Work Phone: [facility] Work Phone: Start: 05-20-2023 End: 05-20-2023 ambulatory Eric Villanueva Other [employer] Other Start: 05-20-2023 Office outpatient vi sit 25 minutes Eric Villanueva [facility] Pain Management Bone [employer] Start: 05-08-2023 End: 05-08-2023 ambulatory RIMA JAIN [facility] Start: 05-07-2023 (Procedure) Boyd Villanueva [facility] Start: 05-07-2023 End: 05-07-2023 Admission to same day surgery center MD Garrison Bell Work Phone: [facility] Work Phone: Start: 05-07-2023 End: 05-07-2023 ambulatory Garrison Bell [employer] Other Start: 04-23-2023 End: 04-23-2023 Patient encounter procedure MD Garrison Bell Work Phone: [facility] Start: 04-23-2023 End: 04-23-2023 ambulatory MD Garrison Bell Work Phone: [facility] Work Phone: Start: 04-23-2023 Office outpatient vi sit 25 minutes Eric Villanueva [facility] Start: 03-06-2023 End: 03-06-2023 ambulatory Garrison Bell Other [employer] Other Start: 03-06-2023 Office outpatient vi sit 15 minutes Garrison Bell [facility] Start: 02-28-2023 End: 02-28-2023 ambulatory Eric Changiuliano Other [place] [employer] Other Start: 02-28-2023 Office outpatient vi sit 15 minutes Eric Villanueva [facility] Start: 02-12-2023 (Procedure) Boyd Villanueva [facility] Start: 02-12-2023 End: 02-12-2023 Admission to same day surgery center MD Garrison Bell Work Phone: [facility] Work Phone: Start: 02-12-2023 End: 02-12-2023 ambulatory MD Garrison Bell Work Phone: [facility] Work Phone: Start: 02-07-2023 End: 02-07-2023 ambulatory Eric Villanueva Other [employer] Other Start: 02-07-2023 Office outpatient vi sit 25 minutes Eric Villanueva [facility] Pain Management [facility] Start: 01-01-2023 End: 01-01-2023 ambulatory Garrison Bell Other [employer] Other Start: 01-01-2023 Telephone encounter Garrison Bell [facility] Start: 12-31-2022 End: 12-31-2022 ambulatory Garrison Bell Other [employer] Other Start: 12-31-2022 Telephone encounter Garrison Bell [facility] Start: 12-05-2022 End: 12-05-2022 ambulatory Garrison Bell Other [employer] Other Start: 12-05-2022 Office outpatient vi sit 25 minutes Garrison Bell [facility] Start: 11-27-2022 End: 11-27-2022 ambulatory Garrison Bell Other [employer] Other Start: 11-27-2022 Telephone encounter Garrison Bell [facility] Start: 11-06-2022 End: 11-07-[address] GARRISON BELL Facility: Start: 11-05-2022 End: 11-05-2022 ambulatory MD Garrison Bell Work Phone: [facility] Work Phone: Start: 11-05-2022 End: 11-05-2022 Patient encounter procedure MD Garrison Bell Work Phone: [facility] Start: 10-23-2022 (Procedure) Short Eric Villanueva [facility] Start: 10-23-2022 End: 10-23-2022 ambulatory Eric Villanueva Other [employer] Other Start: 10-23-2022 End: 10-23-2022 Admission to same day surgery center MD Garrison Bell Work Phone: [facility] Work Phone: Start: 10-10-2022 End: 10-10-2022 ambulatory Eric Villanueva Other [employer] Other Start: 10-10-2022 Telephone encounter Eric Flanagan [facility] Start: 10-09-2022 End: 10-09-2022 Patient encounter procedure MD Garrison Bell Work Phone: [facility] Start: 10-09-2022 End: 10-09-2022 ambulatory Alka Hankins Other [employer] Other Start: 10-09-2022 Office outpatient ne w 45 minutes Alka Hankins [facility] Start: 09-04-2022 End: 09-04-2022 ambulatory Garrison Bell Other [employer] Other Start: 09-04-2022 Office outpatient vi sit 15 minutes Garrison BARRERA [facility] Start: 08-24-2022 End: 08-24-2022 ambulatory Eric Villanueva Other [employer] Other Start: 08-24-2022 Telephone encounter Eric [facility] Start: 08-22-2022 End: 08-23-2022 ambulatory ZENA POTTER Facility:[facility] Start: 08-22-2022 End: 08-22-2022 Patient encounter procedure ZENA POTTER [facility] Start: 08-14-2022 End: 08-14-2022 ambulatory Eric Villanueva Other [employer] Other Start: 08-14-2022 Office outpatient vi sit 25 minutes Eric BARRERA [facility] Start: 08-07-2022 End: 08-07-2022 Admission to same day surgery center MD Garrison Bell Work Phone: [facility] Work Phone: Start: 08-07-2022 End: 08-07-2022 ambulatory MD Garrison Bell Work Phone: [facility] Work Phone: Start: 07-27-2022 End: 07-27-2022 ambulatory Garrison Bell Other [employer] Other Start: 07-27-2022 Telephone encounter Garrison Bell [facility] Start: 07-26-2022 End: 07-27-[address] GARRISON BELL Facility:[facility] Start: 07-17-2022 End: 07-17-2022 ambulatory Eric Villanueva Other [employer] Other Start: 07-17-2022 Telephone encounter Eric [facility] Start: 06-19-2022 Adult health examination Eric Villanueva Other [employer] Other Start: 06-19-2022 End: 06-20-[address] GARRISON BELL Facility:[facility] Start: 06-10-2022 End: 06-11-[address] GARRISON BELL Facility:[facility] Start: 05-08-2022 End: 05-09-[address] GARRISON BELL Facility:[facility] Start: 04-16-2022 End: 04-16-2022 ambulatory Eric Villanueva Other [employer] Other Start: 04-16-2022 Telephone encounter Eric MOHAN G [facility] Start: 03-26-2022 End: 03-26-2022 ambulatory Eric Villanueva Other [employer] Other Start: 03-26-2022 Telephone encounter Eric Felter FP [facility] Start: 03-13-2022 End: 03-13-2022 ambulatory Eric Villanueva Other [employer] Other Start: 03-13-2022 Telephone encounter Eric Flanagan [employer] Start: 03-12-2022 End: 03-12-2022 ambulatory Eric Villanueva Other [employer] Other Start: 03-12-2022 Office outpatient ne w 45 minutes Eric Villanueva [facility] Start: 03-09-[address] GARRISON BELL Facil ity:[facility] Start: 03-08-2022 End: 03-09-[address] GARRISON BELL Facility:[facility] Start: 02-27-2022 End: 02-27-2022 ambulatory Zena García Other [employer] Other Start: 02-27-2022 Patient encounter procedure [facility] Start: 02-22-2022 End: 02-22-2022 ambulatory Eric Villanueva Other [employer] Other Start: 02-22-2022 Telephone encounter Eric Flanagan [employer] Start: 02-06-2022 End: 02-06-2022 ambulatory Zena García Other [employer] Other Start: 02-06-2022 Office outpatient vi sit 25 minutes Zena García [facility] Start: 01-24-2022 End: 01-25-[address] GARRISON BELL Facility:[facility] Start: 01-03-2022 End: 01-03-2022 ambulatory Jazz Nance Other [employer] Other Start: 01-03-2022 Office outpatient vi sit 25 minutes Jazz Nance [facility] Start: 11-06-2021 End: 11-06-2021 ambulatory Zena García Other [employer] Other Start: 11-06-2021 Office outpatient vi sit 15 minutes Zena García [facility] Start: 09-06-2021 ambulatory ZENA POTTER Facility :[facility] Start: 08-08-2021 End: 08-08-2021 ambulatory Zena García Other [employer] Other Start: 08-08-2021 Office outpatient vi sit 15 minutes Zena García [facility] Start: 03-22-2021 Office outpatient vi sit 15 minutes Zena García [facility] Procedures Date Procedure Procedure [...] Date Care Activity Detail Author Start: 03-24-2024 [facility] Start: 12-04-2023 Patient referral [facility] Work Phone: Start: 10-17-2023 X-ray of left knee XR knee LT 2V [facility] Start: 10-17-2023 XR Knee - left 2 Views [facility] Start: 10-15-2023 [facility] Start: 05-28-2023 [facility] Start: 05-07-2023 [facility] Start: 02-12-2023 [facility] Start: 10-23-2022 [facility] Start: 08-07-2022 [facility] Comprehensive metabo lic 2000 panel - Serum or Plasma [facility] CT Chest WO and W contrast IV [facility] Dermatopathology exam Dermatopat hology exam Pathology and Cytology Timed Neoplasm of unspecified behavior of bone, soft tissue, and skin Release Upon Ordering for 1 Occurrences starting 03/17/2024 [facility] [employer] Work Phone: Comment on above: Release Upon Ordering for 1 Occurrences starting 03/17/2024 Patient Education [facility] Work Phone: Patient referral [facility] Work Phone: Renal function 2000 panel - Serum or Plasma [facility] Immunizations Immunization Date Immunization Notes Care Provider Fa cility 06-05-2022 Prevnar 20 Eric Villanueva Other [facility] 10-25-2022 COVID-19 Pfizer (Pediatric) Eric Villanueva Other [facility] 04-17-2022 influenza virus vaccine, split virus (incl. purified surface antigen) Eric Villanueva Other [employer] Other 04-17-2022 influenza virus vaccine, unspecified formulation [facility] 04-14-2021 COVID-19 Vaccine Pfi zer - Documentation Purposes Only Eric Villanueva Other [facility] 04-14-2021 influenza virus vaccine, split virus (incl. purified surface antigen) Eric Villanueva Other [employer] Other 04-14-2021 influenza virus vaccine, unspecified formulation [facility] 03-24-2021 SARS-CoV-2 (COVID-19 ) Ad26 vaccine, recombinant ZENA ABBEY [facility] 03-22-2021 Kenalog -40 mg Zena Kear ingrid Other [facility] [employer] Other 11-16-2020 Kenalog -40 mg Zena Kear ingrid Other [facility] [employer] Other 08-22-2020 SARS-CoV-2 (COVID-19 ) Ad26 vaccine, recombinant ZENA ABBEY [facility] 07-25-2020 SARS-CoV-2 (COVID-19 ) Ad26 vaccine, recombinant ZENA ABBEY [facility] 06-20-2020 zoster vaccine, live Eric Villanueva Other [facility] 01-07-2020 zoster vaccine, live Eric Villanueva Other [facility] 05-05-2019 influenza virus vaccine, split virus (incl. purified surface antigen) Eric Villanueva Other [employer] Other 05-05-2019 influenza virus vaccine, unspecified formulation [facility] 04-07-2018 influenza virus vaccine, split virus (incl. purified surface antigen) Eric Villanueva Other [employer] Other 04-07-2018 influenza virus vaccine, unspecified formulation [facility] 03-21-2016 diphtheria, tetanus toxoids and acellular pertussis vaccine, unspecified formulation Eric Villanueva Other [facility] 12-01-2015 pneumococcal polysaccharide vaccine, 23 valent Eric Villanueva Other [facility] 03-23-2013 pneumococcal conjuga te vaccine, 13 valent Eric Villanueva Other [facility] pneumococcal Conjuga te, unspecified formulation; Translations: [Need for prophylactic vaccination against Streptococcus pneumoniae (pneumococcus)] Eric Villanueva Other [facility] [employer] Other Payers Date Payer Category Payer Self-pay [id number] 2021 Unknown [employer] [id number] 2021-Present [address] [place] [address] [id number] 2015 Medicare MEDICARE MEDICAR E PART B [id number] 2015-Present [address] [address] [place] [address] Medicare [id number] 1959 Medicare [id number] 1959 Unknown [id number] 1950 Unknown [id number] 2.16.840.1.429776.3.579.2. 727 1950 Unknown [id number] 2.16.840.1.636204.3.579.2. 593 1950 Unknown [id number] 2.16.840.1.633075.3.579.2. 593 1950 Unknown [id number] 2.16.840.1.252236.3.579.2. 593 1950 Unknown [id number] 2.16.840.1.878631.3.579.2. 593 1950 Unknown [id number] 2.16.840.1.682634.3.579.2. 593 1950 Unknown [id number] 2.16.840.1.653494.3.579.2. 593 1950 Unknown [id number] 2.16840.1.360850.3.579.2. 593 1950 Unknown [id number] 2.16840.1.326102.3.579.2. 593 1950 Unknown [id number] 2.16.840.1.757297.3.579.2. 593 1950 Unknown [id number] 2.16840.1.500774.3.579.2. 1259 Private Health Insurance [facility] Claims [id number] Unknown [employer] [id number] Unknown HCAP/HFA/FAP Active [id number] [id number]. 531 Unknown [id number] 2.840.1.171373.3.579.2. 531 Unknown [id number] 2.16.840.1.960731.3.579.2. 531 Social History Date Type Detail Facility Unknown if ever smoked [employer] Other Start: 03-17-2024 Sex Assigned At F [facility] Start: 08-07-2022 End: 03-23-2024 Tobacco smoking status NHIS Never smoked tobacco (finding) [facility] Start: 1950 Sex Assigned At Female F [facility] Tobacco smoking status Never [facility] Start: 03-17-2024 Tobacco use and exposure Smokeless tobacco non-user [facility] Start: 03-17-2024 History of Social function [facility] Start: 1950 Sex assigned at Not on file [facility] Tobacco smoking status SCIS Tobacco smoking consumption unknown [facility] Start: 06-30-2024 End: 07-08-2024 Sex Female (finding) [facility] Medical Equipment Procedure Code Equipment [...] right index finger acute July 07 1:40pm [facility] Work Phone: [phone]) 762-641310-14-2024 Evaluation note* Diagnosis Onset Date Resolution Status [...] radiculopathy, lumbosacral region acute June 30 2:41pm [facility] Work Phone: 1(855) 309-965110-01-2024 [facility] History of Present illness Narrative* [...] lesions, pending biopsy results documented in this encounterSelect Specialty [id number] Chief Complaint: [...] history of Coronary artery disease, Diabetes mellitus ([facility]), Hyperlipidemia, and Hypertension. Surgical History She [...] test results Investigations: Echocar (more content not included)...[facility] 11-25-2023 [facility] [...] size and systolic fu (more content not included)...[facility]05-03-2024 NoteCardiovascular Laboratory Report FINAL IMPRESSIONS: Moderate, [...] internal jugular vein was obtained. A 6 Swedish 11 cm sheath was inserted without difficulty. [...] left radial artery was obtained. A 6 Swedish glide sheath was inserted without difficulty. Bilateral [...] of breath, chest pain, abnormal stress test [facility]04-26-2024 Damon Rosales notified of Creatinine of 1.25 (0.55-1.02) on 10/17/23 with previous of 1.21 on 08/16/23. IV hydration of 0.9% NS at 1 ml/Kg/hr for 4 hrs prior to procedure per Dr Rosales.[facility]04-23-2024 [facility] Chief Complaint: [...] stress imaging with reversib (more content not included)...[facility] 09-13-2023 NoteCardiovascular Medicine [facility] SUBJECTIVE HPI: Libra Noonan is a 72 y.o. female here for follow up regarding chest pain. . HPI PMHx: Uncontrolled DM type II, obesity, lower back pain, mild to moderate CAD per 02/2022 cath, HLD Patient here for follow up [facility] for chest pain in Jul 2023. [...] beta-sally plus or m (more content not included)...[facility]01-22-2024 Evaluation note* Encounter Date Diagnosis Assessment Notes Treatment Notes Treatment Clinical Notes Jun, Mixed hyperlipidemia (ICD-10 - E78.2) [facility] 12-13-2023 Evaluation note* Encounter Date Diagnosis [...] K52.9) declines GI referral at this time. [facility] 11-27-2023 Evaluation note* Encounter Date Diagnosis [...] Above note written by Arian Alanis MA, Master Cook. Edited and approved by Dr. Eric Villanueva MD. [facility] 11-15-2023 NoteCardiovascular Medicine [facility] SUBJECTIVE HPI: Libra Noonan is a [...] warm and dry. Neurological: (more content not included)...[facility] 04-23-2023 Evaluation note* Encounter Date Diagnosis [...] note writ ten by Emi Gutierrez LPN, Master Cook. Edited and approved by Dr. Eric Villanueva MD. [facility] 09-13-2023 Evaluation note* Encounter Date Diagnosis Assessment Notes Treatment Notes Treatment Clinical Notes Feb, Type 2 diabetes mellitus with hyperglycemia (ICD-10 - E11.65) Goal: Maintain A1c below 7.0% by being compliant with prescribed medications, diet & exercise plan prior to f/u visit. Laboratory results were reviewed with patient. STATUS: New/continous Reviewed glucose of 249 - will increase dose of glipizide. [facility] 09-07-2023 Evaluation note* Encounter Date Diagnosis [...] note writ ten by Emi Gutierrez LPN, Master Cook. Edited and approved by Dr. Eric Villanueva MD. [facility]* Encounter Date Diagnosis [...] note writ ten by Arian Alanis MA, Master Cook. Edited and approved by Dr. Eric Villanueva MD. [facility] 07-10-2023 Evaluation note* Encounter Date Diagnosis Assessment Notes Treatment Notes Treatment Clinical Notes Dec, Dysuria (ICD-10 - R30.0) [facility] 06-14-2023 Evaluation note* Encounter Date Diagnosis [...] Discussed ER if symptoms worsen. 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 Continue present meds for chronic problem. [facility] 03-03-2023 Evaluation note* Encounter Date Diagnosis Assessment Notes Treatment Notes Treatment Clinical Notes Aug, Other spondylosis with radiculopathy, lumbar region (ICD-10 - M47.26) [facility] 02-21-2023 Evaluation note* Encounter Date Diagnosis [...] note writ ten by Emi Gutierrez LPN, Master Cook. Edited and approved by Dr. Eric Villanueva MD. [facility] 02-03-2023 NotePROCEDURE: XR HIP RT 2 [...] authenticated by: MIGUEL ANGEL CABALLERO Date: 2022-07-27 09:17[facility]01-24-2023 Evaluation note* Encounter Date Diagnosis Assessment Notes Treatment Notes Treatment Clinical Notes Jun, Other spondylosis with radiculopathy, lumbar region (ICD-10 - M47.26) [facility] 10-24-2022 Evaluation note* Encounter Date Diagnosis Assessment Notes Treatment Notes Treatment Clinical Notes Mar, Other spondylosis with radiculopathy, lumbar region (ICD-10 - M47.26) [facility] 09-19-2022 Evaluation note* Encounter Date Diagnosis [...] Above note written by Emi Gutierrez LPN, Master Cook. Edited and approved by Dr. Eric Villanueva [...] negative findings were considered in medical decision-making. [facility] 09-06-2022 Evaluation note* Encounter Date Diagnosis Assessment Notes Treatment Notes Treatment Clinical Notes Feb, Primary osteoarthritis of left knee (ICD-10 - M17.12) Feb, Acute pain of left knee (ICD-10 - M25.562) [facility] 08-16-2022 Evaluation note* Encounter Date Diagnosis [...] pain of left knee (ICD-10 - M25.562) [facility] 07-13-2022 Evaluation note* Encounter Date Diagnosis [...] the ER for worsening symptoms or concerns [facility] 05-16-2022 Evaluation note* Encounter Date Diagnosis [...] pain of left knee (ICD-10 - M25.562) [facility] 02-15-2022 Evaluation note* Encounter Date Diagnosis [...] total right knee replacement (ICD-10 - Z96.651) [facility] 09-29-2021 Evaluation note* Encounter Date Diagnosis [...] total right knee replacement (ICD-10 - Z96.651) [facility] Other Evaluation + Plan note No data available for this section [facility] evaluation noteNo InformationNort [employer] Other Evaluation noteNo assessment information available [facility] Work Phone: Evaluation note* Diagnosis Onset Date Resolution Status Hair loss acute Hypercholesteremia acute Left-sided chest pain acute Mass of right axilla acute Mass of right chest wall acu te Type 2 diabetes mellitus with hyperglycemia acute Chronic pain acute Degenerative disc disease, lumbar acute Other spondylosis with radiculopathy, lumbar region acute [facility] Work Phone: Evaluation note* Diagnosis Onset Date Resolution Status Hair loss acute Hypercholesteremia acute Left-sided chest pain acute Mass of right axilla acute Mass of right chest wall acu te Type 2 diabetes mellitus with hyperglycemia acute Chronic pain acute Degenerative disc disease, lumbar acute Other spondylosis with radiculopathy, lumbar region acute Left knee pain acute Primary osteoarthritis of left knee acute [facility] Work Phone: evaluation note* Diagnosis Onset Date Resolution Status Chronic pain acute Degenerative disc disease, lumbar acute Other spondylosis with radiculopathy, lumbar region acute Left knee pain acute Primary osteoarthritis of left knee acute Anemia acute CKD (chronic kidney disease) stage 3, GFR 30-59 ml/min acute [facility] Work Phone: Evaluation note* Diagnosis Onset Date Resolution Status Left knee pain acute Primary osteoarthritis of left knee acute Anemia acute CKD (chronic kidney disease) stage 3, GFR 30-59 ml/min acute Type 2 diabetes mellitus with hyperglycemia acute Chronic pain acute Degenerative disc disease, lumbar acute Other spondylosis with radiculopathy, lumbar region acute [facility] Work Phone: evaluation note* Diagnosis Onset Date Resolution Status Chronic pain acute Degenerative disc disease, lumbar acute Other spondylosis with radiculopathy, lumbar region acute Left knee pain acute Primary osteoarthritis of left knee acute [facility] Work Phone: evaluation note* Diagnosis Onset Date Resolution Status Chronic pain acute Degenerative disc disease, lumbar acute Other spondylosis with radiculopathy, lumbar region acute Left knee pain acute Primary osteoarthritis of left knee acute Chronic pain acute Degenerative disc disease, lumbar acute Other spondylosis with radiculopathy, lumbar region acute [facility] Work Phone: Evaluation note* Diagnosis Onset [...] disease) stage 3, GFR 30-59 ml/min acute [id number] acute Secondary hyperparathyroidism acute Type 2 diabetes mellitus wit h diabetic chronic kidney disease acute [facility] Work Phone: Evaluation note* Diagnosis Seborrheic [...] wisdom teeth extract Hospitalization History see above [facility] Other [facility] general Narrative - Reported* Type Description Date Medical History Diabetes Medical History Hypertension Medical History Hypercholesteremia Medical History chronic depression Medical History anxiety Surgical History tonsillectomy Surgical History appendectomy Surgical History cholecystectomy Surgical History knee replacement Surgical History hysterectomy Surgical History laparoscopy Surgical History carpal tunnel release Surgical History wisdom teeth extract Hospitalization History see above Hospitalization History [facility] 2021 [facility] [employer] Other [facility] general Narrative - Reported* Type Description Date Medical History Diabetes Medical History Hypertension Medical History Hypercholesteremia Medical History chronic depression Medical History anxiety Surgical History tonsillectomy Surgical History appendectomy Surgical History cholecystectomy Surgical History knee replacement Surgical History hysterectomy Surgical History laparoscopy Surgical History carpal tunnel release Surgical History wisdom teeth extract Surgical History Epiderral 07/2022 Hospitalization History see above Hospitalization History [facility] 2021 [facility] [employer] Other Hospital Discharge instructions No data available for this section [facility] Hospital Discharge instructionsAmbulatory Orders* Referral to Nephrology Time Frame: 12/04/23, Location: None Selected [facility] Work Phone: Progress note No data available for this section [facility] Reason for Referral Reason *Waiting for appt Uncontrolled type 2 diabetes - on ; A1Cs will be scanned in from 2021. Diagnosis 1 Type 2 diabetes jayda itus with hyperglycemia (E11.65) Referral Organization [facility] armen Referring Provider First Name Garrison Referring Provider Last Name Ray Referring Provider Specialty Family [facility] Referred Organization [facility] Endocrinology Referred Provider Akash Hendrix Referred Address [address] ,[place],[address] Referred Provider Specialty Nurse Eber chavarria Referral Priority Routine General Notes Aylin Muñoz 03:32:36 PM >received today, sent p2p Reason *FU 02/21 Schedule with Ellen Villanueva for possible lumbar injections. Diagnosis 1 Primary osteoarthrit is of left knee (M17.12) Diagnosis 2 Spondylolisthesis of lumbar region (M43.16) Referral Organization [facility] Referring Provider First Name Zena Referring Provider Last Name Ricky Referring Provider Specialty Nurse Tj carrasquillo Referred Organization [facility] Referred Provider Eric Villanueva Referred Address [address],[place],[address] Referred Provider Specialty Pain Medicin e Referral [...] kidney disease) stage 3, GFR 30-59 ml/min [id number] Secondary hyperparathyroidism Type 2 diabetes mellitus with [...] kidney disease) stage 3, GFR 30-59 ml/min [id number] Secondary hyperparathyroidism Type 2 diabetes mellitus with [...] kidney disease) stage 3, GFR 30-59 ml/min [id number] Secondary hyperparathyroidism Type 2 diabetes mellitus with [...] Other Provider Active Start: March 24, 2024 [employer] Relationship Specialty Start Date End Date Garrison Bell MD [address] [place] [id number] PCP - General Family Medicine 09/16/23 [employer] Hand Relationship Specialty Start Date End Date Garrison Bell MD [address] [place] [address] [place] [address] PCP - General Family Medicine [...] section and content) DATE CREATED AUTHOR 08/24/2022 [facility] DATE CREATED AUTHOR AUTHOR'S ORGANIZ ATION 11/08/2022 [facility] DATE CREATED AUTHOR AUTHOR'S ORGANIZ ATION 03/18/2024 [facility] DATE CREATED AUTHOR AUTHOR'S ORGANIZ ATION 03/20/2024 [facility] Specialists [facility] DATE CREATED AUTHOR AUTHOR'S ORGANIZ ATION 03/25/2024 [facility] Goals (unrecognized section and [...] BE BASED ON THE PRIMARY CLINICAL RECORDS. [employer] provides no warranty or guarantee of the accuracy or completeness of information in this document.
[2024-09-05] VITALS (10 sets, daily range): BP systolic 147–176; BP diastolic 63–90; PULSE 70–82; TEMP 36.4–36.7; O2SAT 94–96
[2024-09-05] MEDS: CARVEDILOL 6.25 MG TABLET 12.5 MG PO (00:49)
[2024-09-05] MEDS: ATORVASTATIN CALCIUM 40 MG TABLET 80 MG PO (00:49)
[2024-09-05 06:07] LABS: Basophils Percent Auto 0.4 % (0.2-2.0); Eosinophils Absolute Auto 0.2 10^3/uL (0.0-0.7); Eosinophils Percent Auto 2.9 % (0.9-7.0); Hematocrit 34.7 % (36.0-48.0); Hemoglobin 11.5 g/dL (12.0-16.0); Immature Granulocytes Abs Auto 0.01 10^3/uL (0.00-0.03); Immature Granulocytes Pct Auto 0.1 % (0.0-0.5); Lymphocytes Absolute Auto 2.2 10^3/uL (1.2-3.8); Lymphocytes Percent Auto 32.2 % (20.5-60.0); Mean Corpuscular HGB Conc 33.1 g/dL (29.9-35.2); Mean Corpuscular Hemoglobin 30.7 pg (26.7-34.0); Mean Corpuscular Volume 92.5 fL (81.0-99.0); Mean Platelet Volume 10.2 fL (9.5-13.5); Monocytes Absolute Auto 0.5 10^3/uL (0.3-0.8); Monocytes Percent Auto 6.8 % (1.7-12.0); Neutrophils Percent Auto 57.6 % (43.0-75.0); Platelet Count 177 10^3/uL (150-450); Red Blood Count 3.75 10^6/uL (4.20-5.40); Red Cell Distribution Width 12.4 % (11.0-15.0); White Blood Count 6.9 10^3/uL (4.0-11.0)
[2024-09-05 06:25] LABS: Alanine Aminotransferase 21 U/L (14-59); Alkaline Phosphatase 87 U/L (46-116); Anion Gap 13.6; Aspartate Amino Transferase 17 U/L (15-37); BUN Creatinine Ratio 21.6; Bilirubin Total 0.4 mg/dL (0.2-1.0); Calcium 8.8 mg/dL (8.5-10.1); Carbon Dioxide 25.4 mmol/L (21.0-32.0); Chloride 106 mmol/L (98-107); Estimated GFR (African America 45 (>=60 mL/min/1.73m^2); Estimated GFR (Non-African Ame 37 (>=60 mL/min/1.73m^2); Glucose 139 mg/dL (74-106); Magnesium 1.9 mg/dL (1.8-2.4); Sodium 141 mmol/L (136-145)
--- NOTE | 2024-09-05 08:22 | PM.HP ---
HPI H&P: HPI History of Present Illness Chief complaint: sob, weakness, nausea, dizziness Narrative: Patient is a 73 y.o white female with past medical history of Insulin dept type 2 diabetes, HLD, Hypertension, who presented to the ER yesterday with general feeling of unwell, some sweating and feeling like she may pass out but did not. She has had a cough but no fevers, chills, or shortness of breath. She denies any diarrhea, but had to take a laxative for constipation. She just recently (within the last month) was treated for UTI with bactrim. She follows with Dr. Brush of nephrology and Dr. Campo for PCP. She says overall she feels much better this morning. Denies fevers or chills. No N/V or diarrhea. She is able to get out of bed with no further dizziness. She wishes to go home today. ER findings with Acute UTI by UA, Cr 1.70 (baseline 1.23), WBC's 9.3; Flu and covid negative, Chest X-ray negative for acute process, Suhast was given Rocephin for her acute UTI and admitted to the hospitalist for further plan of care. Opioid HPI Opioid Management Most Recent Pain and Opioid Data: Last Pain Assessment 09/05/24 10:00 Last ORT Total Score 1 09/04/24 23:59 09/04/24 Last ORT Risk Category Low Risk 09/04/24 23:59 09/04/24 Review of Systems ROS Narrative ROS: a complete review of systems were reviewed with patient and are positive as below or listed in History of Chief Complaint. General: no fever, chills, but sweats Head: no headache, trauma, visual changes, nausea or vomiting Skin: no reported rashes, itching or sores Eyes: no blurriness of vision Ears: no reported hearing loss, vertigo, earache, or tinnitus Throat: no sore throat, hoarseness, swelling of neck, or tongue pain Heart: no chest pain Lungs: no shortness of breath but cough GI: no diarrhea or vomiting/nausea Urinary: no urinary urgency, frequency or pain Neuro: no numbness or tingling HEM: no bleeding issues or bruising ENDO: no thyroid problems Psych: no anxiety or depression [facility] Medical History (Updated 09/05/24 @ 08:30 by Carla Galindo DO) CHF (congestive heart failure) ?I50.9 - Heart failure, unspecified (ICD-10) RSV (respiratory syncytial virus infection) ?B33.8 - Other specified viral diseases (ICD-10) Hyperlipidemia ?E78.5 - Hyperlipidemia, unspecified (ICD-10) Hypertension ?I10 - Essential (primary) hypertension (ICD-10) Diabetes ?E11.9 - Type 2 diabetes mellitus without complications (ICD-10) Surgical History Hx of tonsillectomy ?Z90.89 - Acquired absence of other organs (ICD-10) Status post right knee replacement ?Z96.651 - Presence of right artificial knee joint (ICD-10) H/O hysterectomy with oophorectomy History of appendectomy ?Z90.49 - Acquired absence of other specified parts of digestive tract (ICD-10) H/O right heart catheterization ?Z98.890 - Other specified postprocedural states (ICD-10) Family History Mother Family history of CHF (congestive heart failure) Family history of diabetes mellitus, Onset Age: 70 Family history of stroke Father Family history of cancer Family history of diabetes mellitus, Onset Age: 70 Family history of stroke Grandfather Family history of cancer Family history of myocardial infarction, Onset Age: 80 Grandmother Family history of diabetes mellitus Social History Smoking status: Never smoker Highest level of school completed/degree received: high school graduate Little interest or pleasure in doing things: not at all Feeling down, depressed, or hopeless: not at all Meds Home Medications and Allergies Home Medications ?Medication ?Instructions ?Recorded ?Confirmed ?Type aspirin 81 mg tablet,delayed 81 mg PO DAILY 08/16/23 09/04/24 History release (Adult Aspirin Regimen) atorvastatin 80 mg tablet 80 mg PO DAILY 08/16/23 09/04/24 History carvedilol 6.25 mg tablet 12.5 mg PO Q12H 08/16/23 09/04/24 History cholecalciferol (vitamin D3) 125 125 mcg PO DAILY 08/16/23 09/04/24 History mcg (5,000 unit) tablet (Vitamin D3) ezetimibe 10 mg tablet 10 mg PO DAILY 08/16/23 09/04/24 History fexofenadine-pseudoephedrine ER 1 tab PO DAILY 08/16/23 09/04/24 History 180 mg-240 mg tablet,ext.release 24 hr (Nevaeh-D 24 Hour) glipizide 10 mg tablet 5 mg PO DAILY 08/16/23 09/04/24 History furosemide 20 mg tablet (Lasix) 10 mg PO .qod 09/04/24 09/04/24 History insulin human U-100 NPH-regulr 30 unit subcut QAM 09/04/24 09/04/24 History 70-30 mix 100 unit/mL subcutaneous susp (Humulin 70/30 U-100 Insulin) Allergies Allergy/AdvReac Type Severity Reaction Status Date / Time oxycodone (From Percocet) AdvReac Mild Nausea Verified 09/04/24 20:14 Exam Narrative Exam Narrative: General: Patient is alert, and oriented to person, place and time with normal affect, proper hygiene Skin: no visible rashes, or ulcers Head: atraumatic, acephalic Eyes: PERRLA, no nystagmus present, conjunctiva clear, no scleral icterus Ears: normal gross auditory acuity Neck: no masses palpated, normal thyroid Heart: Normal rate and rhythm, no murmurs/rubs/gallops Lungs: no audible wheezes, crackles and normal breath sounds all lung lrener Abdomen: Normal audible bowel sounds, no distension, No palpable masses, no organomegaly, no rebound/guarding/ or rigidity Musculoskeletal: no swelling bilateral lower extremities Neuro: CN II-X grossly intact Constitutional Vital Signs, click to edit/add: Last Vital Signs Temp 98.0 F 09/05/24 07:23 Pulse 75 09/05/24 08:04 Resp 18 09/05/24 08:04 BP 176/88 H 09/05/24 07:23 Pulse Ox 94 L 09/05/24 07:23 O2 Del Method Room Air 09/05/24 07:23 Results Labs Labs: Short CBC 09/04/24 09/05/24 Range/Units 20:30 05:48 WBC 9.3 6.9 (4.0-11.0) 10^3/uL Hgb 12.8 11.5 L (12.0-16.0) g/dL Hct 39.3 34.7 L (36.0-48.0) % Plt Count 220 177 (150-450) 10^3/uL BMP 09/04/24 09/05/24 20:30 05:48 Sodium 140 141 Potassium 4.7 4.0 Chloride 103 106 Carbon Dioxide 27.7 25.4 BUN 29.0 H 30.0 H Creatinine 1.70 H 1.39 H Glucose 147 H 139 H Calcium 9.2 8.8 Liver Function 09/05/24 Range/Units 05:48 Total Bilirubin 0.4 (0.2-1.0) mg/dL AST 17 (15-37) U/L ALT 21 (14-59) U/L Alkaline Phosphatase 87 (46-116) U/L Albumin 3.0 L (3.4-5.0) g/dL Urine 09/04/24 Range/Units 21:35 Urine Color Yellow (YELLOW) Urine Clarity Cloudy A (CLEAR) Urine pH 5.5 (5.0-9.0) Ur Specific Browns >=1.030 A (1.005-1.025) Urine Protein 100 A (NEG/TRACE) mg/dL Urine Glucose (UA) Negative (NEGATIVE) mg/dL Assessment and Plan Assessment and Plan (1) Urinary tract infection: Assessment and Plan: urine culture pending. Continue Rocephin. WBC's normal 9.3 Qualifiers: Hematuria presence: with hematuria Urinary tract infection type: acute cystitis Qualified Code(s): N30.01 - Acute cystitis with hematuria (2) Acute kidney injury superimposed on chronic kidney disease: Assessment and Plan: Patient with recent renal ultrasound by Dr. Brush (nephrology), has history of CKD stage 3, baseline Cr is 1.25, was 1.70, has improved with some fluids overnight to 1.39 (3) CHF (congestive heart failure): Assessment and Plan: appears in no acute CHF Qualifiers: Heart failure chronicity: chronic Heart failure type: unspecified Qualified Code(s): I50.9 - Heart failure, unspecified (4) Hyperlipidemia: Assessment and Plan: continue atorvastatin Qualifiers: Hyperlipidemia type: unspecified Qualified Code(s): E78.5 - Hyperlipidemia, unspecified (5) Hypertension: Assessment and Plan: resume home medications Qualifiers: Hypertension type: secondary to endocrine disorders Qualified Code(s): I15.2 - Hypertension secondary to endocrine disorders (6) Diabetes: Assessment and Plan: monitor accuchecks, resume home insulin Qualifiers: Chronic kidney disease stage: stage 3 (moderate) Chronic kidney disease stage 3 subtype: unspecified whether 3a or 3b Diabetes mellitus complication detail: with chronic kidney disease Diabetes mellitus complication status: with kidney complications Diabetes mellitus terminal clerk insulin use: with terminal clerk use Diabetes mellitus type: type 2 Qualified Code(s): E11.22 - Type 2 diabetes mellitus with diabetic chronic kidney disease; N18.30 - Chronic kidney disease, stage 3 unspecified; 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
[2024-09-05] MEDS: EZETIMIBE 10 MG TABLET PO (08:44)
[2024-09-05] MEDS: CARVEDILOL 12.5 MG TABLET PO (08:44)
[2024-09-05] MEDS: ASPIRIN 81 MG TABLET.DR PO (08:44)
[2024-09-05] MEDS: CHOLECALCIFEROL (VITAMIN D3) 125 MCG/5,000 UNIT TABLET PO (08:44)
[2024-09-05] MEDS: GLIPIZIDE 10 MG TABLET 5 MG PO (08:44)
[2024-09-05] MEDS: ENOXAPARIN SODIUM 40 MG/0.4 ML SYRINGE SUBQ (08:45)
[2024-09-05] MEDS: INSULIN NPH 70-30 100UNIT/ML VIAL (10ML) 30 UNIT SUBQ (08:49)
--- NOTE | 2024-09-05 10:50 | PM.DS1 ---
DS: Providers Provider Date of admission: 09/04/24 23:45 Primary care physician: Giana Campo MD Attending physician on admission: Carla Galindo Discharging clinician: Carla Galindo DS: Diagnosis Discharge Diagnosis (1) Urinary tract infection: Qualifiers: Hematuria presence: with hematuria Urinary tract infection type: acute cystitis Qualified Code(s): N30.01 - Acute cystitis with hematuria (2) Acute kidney injury superimposed on chronic kidney disease: (3) CHF (congestive heart failure): Qualifiers: Heart failure type: unspecified Heart failure chronicity: chronic Qualified Code(s): I50.9 - Heart failure, unspecified (4) Hyperlipidemia: Qualifiers: Hyperlipidemia type: unspecified Qualified Code(s): E78.5 - Hyperlipidemia, unspecified (5) Hypertension: Qualifiers: Hypertension type: secondary to endocrine disorders Qualified Code(s): I15.2 - Hypertension secondary to endocrine disorders (6) Diabetes: Qualifiers: Diabetes mellitus type: type 2 Diabetes mellitus nursing home insulin use: with oil heaterman use Diabetes mellitus complication status: with kidney complications Diabetes mellitus complication detail: with chronic kidney disease Chronic kidney disease stage: stage 3 (moderate) Chronic kidney disease stage 3 subtype: unspecified whether 3a or 3b Qualified Code(s): E11.22 - Type 2 diabetes mellitus with diabetic chronic kidney disease; N18.30 - Chronic kidney disease, stage 3 unspecified; Z79.4 - skilled nursing (current) use of insulin DS: Summary Hospital Course Hospital Course: Patient was feeling well this morning. She is back to baseline. Will notify patient or Dr. Campo when urine culture results, Pending at the time of discharge. Cr was 1.39 down from 1.70. Will place on Keflex 500mg BID x 7 days, CrCl 77. Please follow up with PCP next week. Status at Discharge Functional status at discharge: independent ambulation Overall status at discharge: patient is back to baseline Time Spent with Patient Time attestation: Total time spent providing and/or coordinating discharge services: Time spent: less than 30 minutes Exam Narrative Exam Narrative: no changes at the time of discharge from admission H&P exam dated 09/05/24 Constitutional Vital Signs, click to edit/add: Last Vital Signs Temp 98.0 F 09/05/24 07:23 Pulse 70 09/05/24 09:59 Resp 18 09/05/24 08:04 BP 176/88 H 09/05/24 07:23 Pulse Ox 94 L 09/05/24 07:23 O2 Del Method Room Air 09/05/24 07:23 DS: Data Data Completed and Pending Labs on day of discharge: Labs from last 24 hours 09/05/24 09/04/24 09/04/24 05:48 21:35 20:42 WBC 6.9 RBC 3.75 L Hgb 11.5 L Hct 34.7 L MCV 92.5 MCH 30.7 MCHC 33.1 RDW 12.4 Plt Count 177 MPV 10.2 Neut % (Auto) 57.6 Lymph % (Auto) 32.2 [place] % (Auto) 6.8 Eos % (Auto) 2.9 Baso % (Auto) 0.4 Neut # (Auto) 4.0 Lymph # (Auto) 2.2 [place] # (Auto) 0.5 Eos # (Auto) 0.2 Baso # (Auto) 0.0 Abs Immat Gran (auto) 0.01 Imm/Tot Granulo (auto) 0.1 Sodium 141 Potassium 4.0 Chloride 106 Carbon Dioxide 25.4 Anion Gap 13.6 BUN 30.0 H Creatinine 1.39 H Est GFR ( Amer) 45 L Est GFR (Non-Af Amer) 37 L BUN/Creatinine Ratio 21.6 Glucose 139 H Calcium 8.8 Magnesium 1.9 Total Bilirubin 0.4 AST 17 ALT 21 Alkaline Phosphatase 87 Troponin I High Sens Total Protein 6.0 L Albumin 3.0 L Globulin 3.0 Albumin/Globulin Ratio 1.0 Urine Color Yellow Urine Clarity Cloudy A Urine pH 5.5 Ur Specific [place] >=1.030 A Urine Protein 100 A Urine Glucose (UA) Negative Urine Ketones Trace A Urine Occult Blood Moderate A Urine Nitrite Negative Urine Bilirubin Small A Urine Urobilinogen 0.2 Ur Leukocyte Esterase Moderate A Urine RBC 10-20 A Urine WBC >100 A Ur Squamous Epith Cells Many A Urine Crystals None seen Urine Bacteria Large A Urine Casts Seen A Hyaline Casts Few Urine Mucus Small A Ur Culture Indicated? Yes-[facility] [place] Influenza Type A Ag Negative Influenza Type B Ag Negative SARS-CoV-2 Ag (CV2AG) Negative POC Glucose 09/04/24 09/04/24 20:30 20:23 WBC 9.3 RBC 4.21 Hgb 12.8 Hct 39.3 MCV 93.3 MCH 30.4 MCHC 32.6 RDW 12.3 Plt Count 220 MPV 10.3 Neut % (Auto) 70.4 Lymph % (Auto) 20.8 [place] % (Auto) 5.6 Eos % (Auto) 2.5 Baso % (Auto) 0.5 Neut # (Auto) 6.6 H Lymph # (Auto) 1.9 [place] # (Auto) 0.5 Eos # (Auto) 0.2 Baso # (Auto) 0.1 Abs Immat Gran (auto) 0.02 Imm/Tot Granulo (auto) 0.2 Sodium 140 Potassium 4.7 Chloride 103 Carbon Dioxide 27.7 Anion Gap 14.0 BUN 29.0 H Creatinine 1.70 H Est GFR ( Amer) 36 L Est GFR (Non-Af Amer) 29 L BUN/Creatinine Ratio 17.1 Glucose 147 H Calcium 9.2 Magnesium Total Bilirubin AST ALT Alkaline Phosphatase Troponin I High Sens 13.5 Total Protein Albumin Globulin Albumin/Globulin Ratio Urine Color Urine Clarity Urine pH Ur Specific [place] Urine Protein Urine Glucose (UA) Urine Ketones Urine Occult Blood Urine Nitrite Urine Bilirubin Urine Urobilinogen Ur Leukocyte Esterase Urine RBC Urine WBC Ur Squamous Epith Cells Urine Crystals Urine Bacteria Urine Casts Hyaline Casts Urine Mucus Ur Culture Indicated? Influenza Type A Ag Influenza Type B Ag SARS-CoV-2 Ag (CV2AG) POC Glucose 151 H Discharge Plan Discharge Disposition: Home, Self-Care Condition: Good Discharge Medications: New cephalexin 500 mg tablet 500 mg PO Q12H 7 Days Qty: 14 0RF Rx Instructions: CrCl 77 Continued glipizide 10 mg tablet 5 mg PO DAILY ezetimibe 10 mg tablet 10 mg PO DAILY carvedilol 6.25 mg tablet 12.5 mg PO Q12H atorvastatin 80 mg tablet 80 mg PO DAILY aspirin [Adult Aspirin Regimen] 81 mg tablet,delayed release (DR/EC) 81 mg PO DAILY cholecalciferol (vitamin D3) [Vitamin D3] 125 mcg (5,000 unit) tablet 125 mcg PO DAILY fexofenadine-pseudoephedrine [Nevaeh-D 24 Hour] 180-240 mg tablet extended release 24 hr 1 tab PO DAILY Humulin 70/30 U-100 Insulin 100 unit/mL (70-30) suspension 30 unit subcut QAM furosemide [Lasix] 20 mg tablet 10 mg PO .qod Activity: increase activity as tolerated Diet: advance to your usual diet Print Language: Barbadian Forms: Portal Instructions Follow Up Appointments: Call on Saturday for Follow up appointment with Dr. Giana Campo next week
--- NOTE | 2024-09-08 14:52 | CM.DCFOLLOWU ---
Person spoke with: Libra How are you feeling? Still have cough but UTI better, no burning How is your pain? No pain Did you understand your discharge instructions? Yes Do you have any questions about your discharge instructions? No Were you given any prescriptions at discharge? Yes Were you able to get your prescriptions filled? Yes Do you understand how to take your medications as ordered? Yes Do you have any questions about your follow up appointment and do you plan to keep your follow up appointment? Appointment scheduled with Dr. Campo Is there anything else that you would like to discuss? No Questions/Comments/Concerns/Other:
== END 2024-09-05 11:25 | disposition home or self-care (01) ==
LOC: ER 22:10 → MS 23:48
PROVIDERS: Registered Nurse; Admitting Provider Family Medicine; Emergency Provider Emergency Medicine; PCP Family Medicine; Visit Provider Family Medicine
DX: N30.01 Acute cystitis with hematuria (principal); R06.02 Shortness of breath; R42 Dizziness and giddiness; Z79.4 Long term (current) use of insulin; E78.5 Hyperlipidemia, unspecified; Z87.440 Personal history of urinary (tract) infections; Z96.651 Presence of right artificial knee joint; Z90.49 Acquired absence of other specified parts of digestive tract; Z90.710 Acquired absence of both cervix and uterus; Z79.84 Long term (current) use of oral hypoglycemic drugs; N17.9 Acute kidney failure, unspecified; N18.30 Chronic kidney disease, stage 3 unspecified; I13.0 Hypertensive heart and chronic kidney disease with heart failure and stage 1 through stage 4 chronic kidney disease, or unspecified chronic kidney disease; I50.9 Heart failure, unspecified; E11.22 Type 2 diabetes mellitus with diabetic chronic kidney disease
CPT/HCPCS: 36415; 70450; 71045; 80048; 80053; 81001; 82948; 83735; 84484; 85025; 87040; 87086; 87804; 87811; 93005; 94761; 96361; 96365; 96372; 99285; G0378; J0696; J1650

== ENCOUNTER 2024-09-16 14:17 | Outpatient (OUT) | payer MEDICARE, OTHER, SELFPAY ==
[2024-09-16 16:07] LABS: BUN Creatinine Ratio 23.9; Calcium 9.2 mg/dL (8.5-10.1); Carbon Dioxide 24.5 mmol/L (21.0-32.0); Chloride 106 mmol/L (98-107); Estimated GFR (African America 40 (>=60 mL/min/1.73m^2); Estimated GFR (Non-African Ame 33 (>=60 mL/min/1.73m^2); Glucose 228 mg/dL (74-106); Potassium 4.5 mmol/L (3.5-5.1); Sodium 139 mmol/L (136-145)
== END 2024-09-16 14:18 | disposition home or self-care (01) ==
LOC: LAB 14:19
PROVIDERS: PCP Family Medicine
DX: R06.09 Other forms of dyspnea (principal); I50.32 Chronic diastolic (congestive) heart failure
CPT/HCPCS: 36415; 80048; 83880

== ENCOUNTER 2024-10-15 10:35 | Outpatient (OUT) | payer MEDICARE, OTHER, SELFPAY ==
[2024-10-15 10:49] LABS: Basophils Percent Auto 0.4 % (0.2-2.0); Eosinophils Absolute Auto 0.3 10^3/uL (0.0-0.7); Eosinophils Percent Auto 3.5 % (0.9-7.0); Hematocrit 37.2 % (36.0-48.0); Hemoglobin 11.9 g/dL (12.0-16.0); Immature Granulocytes Abs Auto 0.02 10^3/uL (0.00-0.03); Immature Granulocytes Pct Auto 0.3 % (0.0-0.5); Lymphocytes Percent Auto 28.6 % (20.5-60.0); Mean Corpuscular Hemoglobin 30.5 pg (26.7-34.0); Mean Corpuscular Volume 95.4 fL (81.0-99.0); Monocytes Absolute Auto 0.4 10^3/uL (0.3-0.8); Monocytes Percent Auto 6.1 % (1.7-12.0); Neutrophils Absolute Auto 4.3 10^3/uL (1.4-6.5); Neutrophils Percent Auto 61.1 % (43.0-75.0); Platelet Count 198 10^3/uL (150-450); Red Cell Distribution Width 12.8 % (11.0-15.0); White Blood Count 7.1 10^3/uL (4.0-11.0)
== END 2024-10-15 10:36 | disposition home or self-care (01) ==
LOC: LAB 10:35
PROVIDERS: PCP Family Medicine; Visit Provider Family Medicine
DX: N18.9 Chronic kidney disease, unspecified (principal); D63.1 Anemia in chronic kidney disease
CPT/HCPCS: 36415; 85025

== ENCOUNTER 2024-10-15 10:38 | Outpatient (OUT) | payer MEDICARE, OTHER, SELFPAY ==
[2024-10-15 11:21] LABS: Anion Gap 13.8; BUN Creatinine Ratio 23.4; Carbon Dioxide 25.9 mmol/L (21.0-32.0); Chloride 105 mmol/L (98-107); Estimated GFR (African America 40 (>=60 mL/min/1.73m^2); Estimated GFR (Non-African Ame 33 (>=60 mL/min/1.73m^2); Glucose 245 mg/dL (74-106); Potassium 4.7 mmol/L (3.5-5.1); Sodium 140 mmol/L (136-145)
== END 2024-10-15 10:39 | disposition home or self-care (01) ==
LOC: LAB 10:38
PROVIDERS: PCP Family Medicine
DX: R06.09 Other forms of dyspnea (principal); I50.32 Chronic diastolic (congestive) heart failure; N18.9 Chronic kidney disease, unspecified; D63.1 Anemia in chronic kidney disease
CPT/HCPCS: 36415; 80048; 83880; 85025

== ENCOUNTER 2024-10-30 13:06 | Outpatient (OUT) | payer MEDICARE, OTHER, SELFPAY ==
[2024-10-30 14:02] LABS: Anion Gap 12.2; BUN Creatinine Ratio 29.5; Carbon Dioxide 27.5 mmol/L (21.0-32.0); Chloride 104 mmol/L (98-107); Estimated GFR (African America 37 (>=60 mL/min/1.73m^2); Estimated GFR (Non-African Ame 30 (>=60 mL/min/1.73m^2); Glucose 207 mg/dL (74-106); Potassium 4.7 mmol/L (3.5-5.1); Sodium 139 mmol/L (136-145)
== END 2024-10-30 13:07 | disposition home or self-care (01) ==
LOC: LAB 13:10
PROVIDERS: PCP Family Medicine; Visit Provider Internal Medicine Interventional Cardiology
DX: E11.22 Type 2 diabetes mellitus with diabetic chronic kidney disease (principal); I50.41 Acute combined systolic (congestive) and diastolic (congestive) heart failure
CPT/HCPCS: 36415; 80048; 83036

== ENCOUNTER 2024-10-30 13:14 | Outpatient (OUT) | payer MEDICARE, OTHER, SELFPAY ==
[2024-10-30 13:42] LABS: Estimated Average Glucose 169 mg/dL; Glycohemoglobin A1C 7.5 % (4.5-6.2)
== END 2024-10-30 13:15 | disposition home or self-care (01) ==
LOC: LAB 13:16
PROVIDERS: PCP Family Medicine; Visit Provider Family Medicine
DX: E11.22 Type 2 diabetes mellitus with diabetic chronic kidney disease (principal)
CPT/HCPCS: 36415; 83036

== ENCOUNTER 2025-03-09 13:57 | Outpatient (OUT) | payer MEDICARE, OTHER, SELFPAY ==
--- OUTSIDE RECORDS SUMMARY | 2025-03-09 14:02 | XMS_ITS | Clinical Summary ---
Author Organization [facility] tem Address [id number] [address] [place] [address] Care Team Providers Care Clinical Case Manager Name Role Phone Giana Campo MD Primary Care Provider [phone] Allergies Active Allergy Reactions Criticality Noted Date Comments Propoxyphene N-Acetaminophen GI Disturbance Low Oxycodone-Acetaminophen GI Disturbance Low 09/07/19 21 Medications atorvastatin (LIPITOR) 80 mg tablet atorvastatin 80 mg tablet TAKE 1 TABLET DAILY Active insulin NPH and regular human (NovoLIN 70/30 U-100 Insulin) 100 unit/mL (70-30) injection 0.3 mL (30 Units total) every morning. Active acetaminophen (TYLENOL) 500 mg tablet Take 1 tablet (500 mg total) by mouth every 6 (six) hours as needed for pain. Active fexofenadine (MACK) 180 mg tablet Take 1 tablet (180 mg total) by mouth in the morning. Active cyclobenzaprine (FLEXERIL) 5 mg tablet Take 1 tablet (5 mg total) by mouth 3 (three) times a day as needed for muscle spasms. Active glipiZIDE (GLUCOTROL) 5 mg tablet Take 1 tablet (5 mg total) by mouth in the morning. Active ezetimibe (ZETIA) 10 mg tablet Take 1 tablet (10 mg total) by mouth in the morning. Active carvediloL (COREG) 6.25 mg tablet Take 1 tablet (6.25 mg total) by mouth in the morning and 1 tablet (6.25 mg total) in the evening. Take with meals. Active aspirin 81 mg Take 1 tablet (81 mg total) by mouth in the morning. Active cholecalciferol , vitamin D3, 2,000 units tablet Take 1 tablet (2,000 Units total) by mouth in the morning. Active pregabalin (LYRICA) 75 mg capsule Take 1 capsule (75 mg total) by mouth as needed. Active Active Problems No known active problems Family History Medical History Relation Name Comments Cancer Father esophageal Diabetes Father Stroke Father Heart disease Maternal Grandfather Cancer Maternal Grandmother oral Diabetes Mother Stroke Mother Breast cancer Neg Hx Relation Name Status Comments Father Maternal Grandfather Maternal Grandmother Mother Social History Tobacco Use Types Packs/Day Years Used Date Smoking Tobacco: Never Smokeless Tobacco: Never Tobacco Cessation:Counseling Given: Not Answered Alcohol Use Standard Drinks/Week Comments Not Currently 0 (1 standard drink = 0.6 oz pur e alcohol) Childcare Answer Date Recorded Childcare Unknown 12/03/2018 Employment Answer Date Recorded Employment Unknown 12/03/2018 Purpose - Life Answer Date Recorded Purpose and direction in life Unknown Comments No Sex and Gender Information Value Date Recorded Sex Assigned at Not on file Legal Sex Female 11:45 AM EDT Gender Identity Not on file Sexual Orientation Not on file Last Filed Vital Signs Vital Sign Reading Time Taken Comments Blood Pressure 140/67 04/18/2023 9:15 AM EDT Pulse 74 04/18/2023 9:15 AM EDT Temperature 36.5 C (97.7 F) 04/18/2023 7:01 AM EDT Respiratory Rate 16 04/18/2023 9:15 AM EDT Oxygen Saturation 94% 04/18/2023 9:15 AM EDT Inhaled Oxygen Concentration - - Weight 141.5 kg (312 lb) 04/18/2023 7:01 AM EDT Height 157.5 cm (5' 2 ) 04/18/2023 7:01 AM EDT Body Mass Index 57.07 04/18/2023 7:01 AM EDT Plan of Treatment Health Maintenance Due Date Last Done Comments Depression Screening 1962 Zoster (Shingles) Vaccine (1 of 2) 2000 Fall Risk Screening 12/18/2015 Adult BMI Screening 04/18/2024 04/18/2023 Tobacco Screening 04/18/2024 04/18/2023 COVID-19 Vaccine (2024-2 6 season) 2025 04/17/2022, 03/24/2022, 04/14/2021, Additional history exists Influenza Vaccine 02/22/2025 04/17/2022, , 04/14/2021, Additional history exists DTaP,Tdap and Td Vaccines (2 - Td or Tdap) 03/21/2026 03/21/2016 Medical Devices Implanted Type Area Cushion Padder Device Identifier Shelf Expiration Date Model / Serial / Lot Lens Iol Ultrasert 16.0d - [id number] - [id number] Implanted:Qty: 1 on 03/28/2023 by Krissy Alanis MD at [facility] Lens Right: Eye [employer] 02/13/2025 [id number] 16.0 / [id number] / NA Lens Iol Ultrasert 17.0d - [id number] - [id number] Implanted:Qty: 1 on 04/18/2023 by Krissy Alanis MD at [facility] Lens Left: Eye [employer] 02/18/2025 [id number] 17.0 / [id number] / NA Insurance [employer] [place] Care Teams Clinical Case Manager Relationship Specialty Start Date End Date Giana Campo MD [facility] [place] [address] PCP - General Family Medicine 09/06/20
--- OUTSIDE RECORDS SUMMARY | 2025-03-09 14:02 | XMS_ITS | Encounter Summary ---
Author Organization [facility] Address [address] [place] [address] Care Team Providers Care Hydro Plant Site Manager Name Role Phone Giana Campo MD Primary Care Provider [phone] Reason for Visit * Reason Onset Date Comments Med Refill 02/23/2025 Encounter Details Date Type Department Care Team (Late st Contact Info) Description 02/23/2025 Refill [facility] [address] [place] [address] Lorenza Lopez MA Essential hypertension Social History Tobacco Use Types Packs/Day Years Used Date Smoking Tobacco: Never Smokeless Tobacco: Never Alcohol Use Standard Drinks/Week Comments Not Currently 0 (1 standard drink = 0.6 oz pur e alcohol) [place] Safety & Environment Answer Date Rec orded Fear of Current or Ex-Partner Not on file Emotionally Abused Not on file 08/15/2023 Physically Abused Not on file 08/15/2023 Sexually Abused Not on file 08/15/2023 Physically or Sexually Abused Not on file Comments No Sex and Gender Information Value Date Recorded Sex Assigned at Not on file Legal Sex Female 11:10 AM EDT Gender Identity Not on file Sexual Orientation Not on file documented as of this encounter Plan of Treatment Not on file documented as of this encounter Visit Diagnoses Diagnosis Essential hypertension Unspecified essential hypertension documented in this encounter Care Teams Hydro Plant Site Manager Relationship Specialty Start Date End Date Giana Campo MD [address] [facility] [address] PCP - General 03/16/22 documented as of this encounter
--- OUTSIDE RECORDS SUMMARY | 2025-03-09 14:02 | XMS_ITS | Encounter Summary ---
Author Organization [facility] [employer] [facility] tem Address [id number] [address] [place] [address] Care Team Providers Care Battery Charger Conveyor Line Name Role Phone Giana Campo MD Primary Care Provider [phone] Encounter Details Date Type Department Care Team (Late st Contact Info) Description 09/06/2020 Orders Only [facility] [address] [place] [address] Giana Campo MD [address] [place] [address] Social History Tobacco Use Types Packs/Day Years Used Date Smoking Tobacco: Never Smokeless Tobacco: Never Alcohol Use Standard Drinks/Week Comments Not Currently 0 (1 standard drink = 0.6 oz pur e alcohol) Childcare Answer Date Recorded Childcare Unknown 12/03/2018 Employment Answer Date Recorded Employment Unknown 12/03/2018 Purpose - Life Answer Date Recorded Purpose and direction in life Unknown Comments Unknown Sex and Gender Information Value Date Recorded Sex Assigned at Not on file Legal Sex Female 11:45 AM EDT Gender Identity Not on file Sexual Orientation Not on file COVID-19 Exposure Response Date Recorded In the last month, have you been in contact with someone who was confirmed or suspected to have Coronavirus / COVID-19? No / Unsure 09/06/2020 11:18 AM EDT documented as of this encounter Plan of Treatment Not on file documented as of this encounter Procedures Procedure Name Priority Date/Time Associated Diagnosis Comments MR LUMBAR SPINE WO CONT Routine 08/03/2020 documented in this encounter Results * MR lumbar without contrast (08/03/2020) Anatomical Region Laterality Modality MSK, Neuro, Spine, L-spine, Spine Covera N/A Magnetic Resonance us Giana Campo MD IMG MRI ORDERABLES Final Resul t documented in this encounter Visit Diagnoses Not on filedocumented in this encounter Care Teams Battery Charger Conveyor Line Relationship Specialty Start Date End Date Giana Campo MD [address] [place] [address] PCP - General Family Medicine 09/06/20 documented as of this encounter
--- OUTSIDE RECORDS SUMMARY | 2025-03-09 14:02 | XMS_ITS | Clinical Summary ---
Author Organization [facility] Address [address] [place], [place] [id number] Care Team Providers Care Pattern Storage Clerk Name Role Phone Unavailable Primary Care Provider Unavailabl e Allergies Active Allergy Reactions Criticality Noted Date Comments Adhesive Tape 08/04/2002 carrion skin Medications ESTRACE 1MG TABLET Take one tab QD 0 0 08/04/2002 Active CATAPRES 0.3MG TABLET Take one tab QD 0 0 08/04/2002 Active NEXIUM 40MG CAPSULE Take one tab QD 0 0 08/04/2002 Active HYZAAR 100-25 TABLET Take one tab QD 0 0 08/04/2002 Active ELAVIL 25MG TABLET Take one (1) tablet at bedtime 0 0 08/04/2002 Active VIOXX 25MG TABLET Take one(1) tablet daily. 0 0 08/04/2002 Active Active Problems Problem Noted Date Diagnosed Date Essential hypertension, benign 08/04/2002 Myalgia and myositis, unspecified 08/04/2002 Family History Medical History Relation Comments Cancer Daughter ovarian, mixed g erm cell Cancer Father esophageal Stroke Father Thyroid Father Ischemic Heart Disease Maternal Grandfather Stroke Mother Thyroid Mother Cancer Paternal Grandfather jaw Diabetes Paternal Grandmother Relation Status Comments Daughter Father Maternal Grandfather Mother Paternal Grandfather Paternal Grandmother Social History Tobacco Use Types Packs/Day Years Used Date Smoking Tobacco: Never Alcohol Use Standard Drinks/Week Comments No 0 (1 standard drink = 0.6 oz pur e alcohol) Comments No Sex and Gender Information Value Date Recorded Sex Assigned at Not on file Legal Sex Female 9:57 AM EST Gender Identity Not on file Sexual Orientation Not on file Last Filed Vital Signs Vital Sign Reading Time Taken Comments Blood Pressure 140/78 08/04/2002 4:00 PM EST Pulse 84 08/04/2002 4:00 PM EST Temperature 37.4 C (99.3 F) 08/04/2002 4:00 PM EST Respiratory Rate - - Oxygen Saturation - - Inhaled Oxygen Concentration - - Weight 132.4 kg (291 lb 14.2 oz) 08/04/2002 4:00 PM EST Height 160 cm (5' 2.99 ) 08/04/2002 4:00 PM EST Body Mass Index 51.72 08/04/2002 4:00 PM EST Plan of Treatment Health Maintenance Due Date Last Done Comments Anxiety Screening 1968 Depression Screening 1968 Hepatitis C Screening 1968 DTaP,Tdap,Td Vaccine (1 - Tdap) [address] Colonography 12/18/1995 Cologuard (FIT-DNA) 12/18/1995 Colonoscopy 12/18/1995 Colorectal Cancer Screening 12/18/1995 Fecal Occult Blood 12/18/1995 Lipid Screening 12/18/1995 Sigmoidoscopy 12/18/1995 Pneumococcal Vaccine: 50+ (1 of 1 - PCV) 2000 Shingrix Vaccine (1 of 2) 2000 Diabetes Screening 08/04/2005 08/04/2002 Bone Density Screening 12/18/2015 Advance Directive Discussion 06/24/2024 Influenza Vaccine (#1) 2025 RSV Vaccine (1 - 1-dose 75+ series) 2025 Procedures Procedure Name Priority Date/Time Associated Diagnosis Comments COMPREHENSIVE METABOLIC PANEL Routine 08/04/2002 6:09 PM EST Myalgia And Myositis Nos from Last 3 Months or Most Recently Relevant to Health Maintenance Results * (ABNORMAL) COMP METABOLIC PANEL (08/04/2002 6:09 PM EST) Protein, Total 7.9 6.0 - 8.4 g/dL [facility] Albumin 4.2 3.5 - 5.0 g/dL [facility] Calcium 10.1 8.5 - 10.5 mg/dL [facility] Bilirubin, Total 0.2 0.0 - 1.5 mg/dL [facility] Alkaline Phosphatase 128 40 - 150 U/L [facility] AST 6(A) 7 - 40 U/L [facility] Glucose 100 65 - 110 mg/dL [facility] BUN 21 8 - 25 mg/dL [facility] Creatinine 0.9 0.7 - 1.4 mg/dL [facility] Sodium 137 132 - 148 mmol/L [facility] Potassium 4.3 3.5 - 5.0 mmol/L [facility] Chloride 98 98 - 110 mmol/L [facility] CO2 24 24 - 32 mmol/L [facility] Anion Gap 15 0 - 15 mmol/L [facility] ALT 6 0 - 45 U/L [facility] Blood specimen (specimen) BLOOD SPECIMEN / Unknown 08/04/2002 6:09 PM EST [facility] Final Result [facility] [address] [place] [address] from Last 3 Months or Most Recently Relevant to Health Maintenance Insurance [facility]
--- OUTSIDE RECORDS SUMMARY | 2025-03-09 14:02 | XMS_ITS | Clinical Summary ---
Author Organization [facility] Address [address] [place] [address] Care Team Providers Care Handhole Machine Operator Name Role Phone Giana Campo MD Primary Care Provider [phone] Allergies Active Allergy Reactions Criticality Noted Date Comments Acetaminophen 03/10/2024 Other Reaction(s): dizziness, and stomach issues Lisinopril Hives 03/10/2024 Metformin Hives 03/10/2024 Nitrofurantoin Hives 03/10/2024 Oxycodone-Acetaminophen GI intolerance,Rash,Unk nown Low 09/06/2020 Propoxyphene GI intolerance,Unknown 03/10/2024 Wound Dressing Adhesive 08/04/2002 carrion skin Medications aspirin 81 MG EC tablet Take 81 mg by mouth in the morning. Active atorvastatin (Lipitor) 80 MG tablet Take 80 mg by mouth Daily 09/04/2023 Active carvedilol (Coreg) 25 MG tablet Take 25 mg by mouth in the morning and 25 mg in the evening. Take with meals. Active cholecalciferol (Vitamin D-3) 50 MCG (1999 UT) tablet Take 2,000 Units by mouth in the morning. Active ezetimibe (Zetia) 10 MG tablet Take 10 mg by mouth in the morning. Active fexofenadine (Nevaeh) 180 MG tablet Take 180 mg by mouth in the morning. Active furosemide (Lasix) 20 MG tablet Take 20 mg by mouth Daily 11/25/2023 Active glipiZIDE (Glucotrol) 10 MG tablet Take 10 mg by mouth 01/15/2024 Active insulin NPH-insulin regular (NovoLIN) (70-30) 100 UNIT/ML injection Inject under the skin 2 (two) times a day before meals Active Active Problems No known active problems Social History Tobacco Use Types Packs/Day Years Used Date Smoking Tobacco: Never Smokeless Tobacco: Never Tobacco Cessation:Counseling Given: Not Answered Comments Unknown Sex and Gender Information Value Date Recorded Sex Assigned at Not on file Legal Sex Female 8:08 PM EDT Gender Identity Not on file Sexual Orientation Not on file Plan of Treatment Not on file Insurance [employer] [place] Care Teams Handhole Machine Operator Relationship Specialty Start Date End Date Giana Campo MD PCP - General Family Medicine 09/16/23
--- OUTSIDE RECORDS SUMMARY | 2025-03-09 14:02 | XMS_ITS | Clinical Summary ---
Author Organization [facility] Address [address] [place] [address] Care Team Providers Care Business Continuity Coordinator Name Role Phone Giana Campo MD Primary Care Provider [phone] Allergies Active Allergy Reactions Criticality Noted Date Comments Acetaminophen Unknown 03/10/2024 Other Reaction(s): dizziness, and stomach issues Adhesive Tape-Silicones Low 08/04/2002 carrion skin Lisinopril Hives 03/10/2024 Metformin Hives 03/10/2024 Nitrofurantoin Hives 03/10/2024 Oxycodone-Acetaminophen GI intolerance,Rash Low Propoxyphene GI intolerance,Unknown 03/10/2024 Propoxyphene N-Acetaminophen GI intolerance,Rash Low 09/06/2020 Medications insulin NPH and regular human (NovoLIN) 100 unit/mL (70-30) injection Inject under the skin before breakfast and before evening meal. Active atorvastatin (Lipitor) 80 mg tablet Take 80 mg by mouth at bedtime. Active glipiZIDE (Glucotrol) 5 mg tablet Take 5 mg by mouth in the morning. Active aspirin 81 mg capsule Take 81 mg by mouth in the morning. Active albuterol 2.5 mg /3 mL (0.083 %) nebulizer solution INHALE 1 (ONE) vial via NEBULIZER FOUR TIMES DAILY NEEDED 06/25/19 23 Active cholecalciferol (Vitamin D-3) 50 MCG (1999) tablet Take 2,000 Units by mouth in the morning. Active fexofenadine (Nevaeh) 180 mg tablet Take 180 mg by mouth in the morning. As needed Active lisinopril 5 mg tabletIndications: Essential hypertension Take 1 tablet (5 mg) by mouth in the morning. 90 tablet 3 10/09/19 24 Active Additional Information Patient not taking.Reported on 03/16/2024 bumetanide (Bumex) 1 mg tabletIndications: Acute diastolic heart failure (CMS/HCC) Take 1 tablet (1 mg) by mouth in the morning and at bedtime. 60 tablet 1 10/25/19 24 Active carvedilol (Coreg) 25 mg tabletIndications: Essential hypertension, benign,Coronary artery disease involving [place] coronary artery of [place] heart without angina pectoris Take 1 tablet (25 mg) by mouth with breakfast and with evening meal. 180 tablet 3 10/25/19 24 Active Additional Information Patient taking differently: 12.5 mgoral 2 times daily with meals, Reported on 11/25/2023 ezetimibe (Zetia) 10 mg tabletIndications: Mixed hyperlipidemia Take 1 tablet (10 mg) by mouth once daily as directed. 90 tablet 3 07/31/19 25 026 Active carvedilol (Coreg) 12.5 mg tabletIndications: Benign hypertensive heart disease with heart failure (CMS/HCC) Take 1 tablet (12.5 mg) by mouth with breakfast and with evening meal. 180 tablet 3 07/31/19 25 026 Active sertraline (Zoloft) 50 mg tablet Take 1 tablet by mouth in the morning. 04/07/20 24 Active furosemide (Lasix) 20 mg tabletIndications: Essential hypertension Take 1 tablet (20 mg) by mouth in the morning. 90 tablet 3 02/24/20 25 026 Active furosemide (Lasix) 20 mg tabletIndications: Essential hypertension Take 1 tablet (20 mg) by mouth in the morning. 90 tablet 09/17/19 25 025 Discontin ued(Reord er) Active Problems Problem Noted Date Diagnosed Date Anemia 02/18/2024 CKD (chronic kidney disease) stage 3, GFR 30-59 ml/min 02/18/2024 Chronic pain 11/25/2023 Degenerative disc disease, lumbar 11/25/2023 Hair loss 11/25/2023 Left knee pain 11/25/2023 Mass of right axilla 11/25/2023 Mass of right chest wall 11/25/2023 Other spondylosis with radiculopathy, lumbar reg ion 11/25/2023 Primary osteoarthritis of left knee 11/25/2023 Type 2 diabetes mellitus with hyperglycemia 08/2023 Abscess or cellulitis of scalp 10/09/2023 0 10/09/2023 Acute pyelonephritis 10/09/2023 10/09/2023 Sepsis 10/09/2023 10/09/2023 Chest pain 10/09/2023 BMI 50.0-59.9, adult 11/13/2022 Diabetes mellitus 11/13/2022 Disorder of kidney 11/13/2022 Dyspnea on exertion 11/13/2022 Foraminal stenosis of lumbar region 11/13/2022 Glaucoma 11/13/2022 High cholesterol 11/13/2022 Increased frequency of urination 11/13/2022 Menopausal problem 11/13/2022 Recurrent UTI 11/13/2022 Sciatica 11/13/2022 Symptoms involving urinary system 11/13/2022 Abnormal cardiovascular stress test 03/19/2022 Overview (03/19/2022): Added automatically from request for surgery [id number] Essential hypertension, benign 08/04/2002 Myalgia and myositis, unspecified 08/04/2002 Coronary artery disease Hypertension Encounters Date Type Department Care Team Description 02/23/2025 Refill [facility] [place] [address] [place] [id number] Jessica, Lorenza, SHELLY Essential hypertension from Last 3 Months Family History Medical History Relation Name Comments Stroke Father Heart failure Mother Rheumatic fever Mother Stroke Mother cardiac pacemaker Mother She is uns ure if this was a defibrillator Relation Name Status Comments Father Mother Social History Tobacco Use Types Packs/Day Years Used Date Smoking Tobacco: Never Smokeless Tobacco: Never Tobacco Cessation:Counseling Given: Not Answered Alcohol Use Standard Drinks/Week Comments Not Currently 0 (1 standard drink = 0.6 oz pur e alcohol) [place] Safety & Environment Answer Date Rec orded [...] Sign Reading Time Taken Comments Blood Pressure 103/62 11/19/2024 1:16 PM EDT Pulse 87 11/19/2024 1:16 PM EDT Temperature - - Respiratory Rate 21 10/25/2023 3:30 PM EDT Oxygen Saturation 95% 11/19/2024 1:16 PM EDT Inhaled Oxygen Concentration - - Weight 146 kg (321 lb) 11/19/2024 1:16 PM EDT Height 157.5 cm (5' 2 ) 11/19/2024 1:16 PM EDT Body Mass Index 58.71 11/19/2024 1:16 PM EDT Plan of Treatment Health Maintenance Due Date Last Done Comments CT Colonography 1950 Colonoscopy 1950 Colorectal Cancer Screening 1950 Diabetes: Hemoglobin A1C 1950 FIT-DNA 1950 FIT 1950 FOBT 1950 Medicare Annual Wellness (AWV) 1950 Sigmoidoscopy 1950 Diabetes: Retinopathy Screening 1960 Depression Screening 1962 Diabetes: Urine Protein Screening 1969 Mammogram 1990 Zoster Vaccines (1 of 2) 2000 Fall Risk Screening 12/18/2015 COVID-19 Vaccine ( season) 2025 05/26/2024, 04/17/2022, 03/24/2022, Additional history exists Influenza Vaccine (#1) 2025 , 04/17/2022, 03/24/2022, Additional history exists Adult Tetanus 03/21/2026 03/21/2016 Pneumococcal Vaccine: 50+ Years Completed 06/05/2022, 12/01/2015 HIB Vaccines Aged Out No longer eligi ble based on patient's age to complete this topic HPV Vaccines Aged Out No longer eligi ble based on patient's age to complete this topic IPV Vaccines Aged Out No longer eligi ble based on patient's age to complete this topic Meningococcal B Vaccine Aged Out No l onger eligible based on patient's age to complete this topic Meningococcal Vaccine Aged Out No julianne hoa eligible based on patient's age to complete this topic Rotavirus Vaccines Aged Out No longer eligible based on patient's age to complete this topic Insurance [employer] [place] [place] Care Teams Business Continuity Coordinator Relationship Specialty Start Date End Date Giana Campo MD [address] [facility] #A PCP - General 03/16/22
[2025-03-09 14:28] LABS: Hematocrit 37.1 % (36.0-48.0); Hemoglobin 11.9 g/dL (12.0-16.0); Mean Corpuscular HGB Conc 32.1 g/dL (29.9-35.2); Mean Corpuscular Hemoglobin 30.2 pg (26.7-34.0); Mean Corpuscular Volume 94.2 fL (81.0-99.0); Platelet Count 210 10^3/uL (150-450); Red Blood Count 3.94 10^6/uL (4.20-5.40); White Blood Count 8.1 10^3/uL (4.0-11.0)
--- OUTSIDE RECORDS SUMMARY | 2025-03-09 14:38 | XMS_ITS | CCD ---
Author Organization [facility] Care Team Providers Care Teacher [facility]cl[facility] Name Role Phone Zena García Unavailable Jazz Nance Unavailable Eric Villanueva Unavailable MD Garrison Bell Primary Care Provider MD Eric Villanueva Attending Provider GARRISON BELL Primary Care Physician ZENA POTTER Attending Unavailable Garrison Bell Unavailable Alka Hankins Unavailable MD Garrison Bell Primary Care Provider MD Alka Hankins R Attending Provider [phone] MD Eric Villanueva Attending Provider ANGELO García Attending Provider [phone] DR GARRISON BELL Admitting Unavailable RAY, DR GARRISON Jefferson Primary Care Unavailable SUPERIOR, DR ANN MARIE Gibbons Consulting Unavailable RAY, DR GARRISON Jefferson Attending Unavailable RAY, DR GARRISON Jefferson Consulting Unavailable RAY, DR GARRISON Jefferson Admitting Unavailable BELL, DR GARRISON Jefferson Consulting Unavailable BELL, DR GARRISON Jefferson Primary Care Unavailable BELL, DR AGRRISON Jefferson Attending Unavailable RAY, DR GARRISON Jefferson Primary Care Unavailable RIMA JAIN Consulting Unavailable RIMA JAIN Attending Unavailable RIMA JAIN Admitting Unavailable RAY, DR GARRISON Jefferson Primary Care Unavailable ERYN, DR TIM De Guzman Attending Unavailable ERYN, DR TIM De Guzman Admitting Unavailable DR LUCRECIA ALANIS Consulting Unavailable ERYN, DR TIM De Guzman Consulting Unavailable YONIS PACHECO Consulting [...] Care Provider MD Eric Villanueva Attending Provider [phone] MD Garrison Bell Primary Care Provider MD Eric Villanueva Attending Provider MD Garrison Bell Primary Care Provider MD Eric Villanueva Attending Provider [phone] ANGELO García Attending Provider MD Garrison Bell Primary Care Provider RENETTA NGUYEN Attending Unavailable MD Garrison Bell Primary Care Provider MD Eric Villanueva Attending Provider Garrison Bell MD Primary Care Provider Jacinto Fraga DO Attending Provider Unavailab Eric Palm Admitting Unavailable Eric Villanueva Attending Unavailable Garrison Bell Primary Care Unavailable Jacinto Fraga Admitting Unavailable Jacinto Fraga Attending Unavailable Garrison Bell Primary Care Unavailable Zena García Admitting Unavailable Zena García Attending Unavailable Eric Villanueva Admitting Unavailable Eric Villanueva Attending Unavailable Garrison Bell Primary Care Unavailable Jacinto Fraga DO Attending Provider CONNIE, [facility] Attending Unavailable MILTON GREEN Attending Unavailable EVATAHAWManisha, AB Attending Unavailable ELTAHAWY, [facility] Attending Unavailable CONNIE, SKYLERAB Attending Unavailable Garrison Bell MD Primary Care Provider Lexus Brush MD Attending Provider Garrison Bell MD Attending Provider [phone] Allergies Allergy Classification Reported Allergen(s) Allergy Type Date of Onset Reaction(s) Facility Acetaminophen (1 source) Acetaminophen Drug Allergy 12-04-19 24 dizziness, and stomach issues [facility] Angiotensin Converting Enzyme (HIRAM) Inhibitors (1 source) Lisinopril Drug Allergy 12-04-19 24 [facility] metFORMIN (1 source) metFORMIN Drug Allergy 12-04-19 24 [facility] Nitrofurantoin (1 source) Nitrofurantoin Drug Allergy 12-04-19 24 [facility] Opioid Agonists (2 sources) oxyCODONE Drug Allergy 12-04-19 24 constipation, dizziness, and stomach issues, Vomiting [facility] (20 sources) Acetaminophen / oxyCODONE; Translations: [acetaminophen-ox ycodone] Drug Allergy 01-21-20 19 Unknown (qualifier value) [facility] (20 sources) oxyCODONE Drug Allergy 03-20-20 22 Vomiting, constipation, constipation, dizziness, and stomach issues [facility] Comment on above: Onset Date: 01/21/20 19 (20 sources) Propoxyphene; Translations: [PROPOXYPHENE] Drug Allergy 03-20-20 22 GI intolerance, Unknown [facility] (2 sources) acetaminophen / propoxyphene; Translations: [acetaminophen-pr opoxyphene] Drug Allergy Unknown (qualifier value) [facility] (2 sources) Acetaminophen / oxyCODONE; Translations: [Percocet] Drug Allergy 07-28-19 21 [facility] (20 sources) Lisinopril; Translations: [LISINOPRIL] Drug Allergy 01-20-20 19 Unknown, [facility] Comment on above: Onset Date: 01/20/20 19 (20 sources) metFORMIN; Translations: [METFORMIN] Drug Allergy 01-20-20 19 [facility] Comment on above: Onset Date: 01/20/20 19 (11 sources) NITROFURANTOIN, MACROCRYSTALS / Nitrofurantoin, Monohydrate Drug Allergy Unknown [facility] (3 sources) Allergies Reconciled Propensity to adverse reactions Unknown [facility] (3 sources) patient allergy list reviewed by nurse or physicia Propensity to adverse reactions 01-21-20 Comment:Done [facility] Other (11 sources) Darvocet A500 *ANALGESICS - OPIOID* Propensity to adverse reactions 01-21-20 Unknown [facility] (20 sources) Acetaminophen; Translations: [ACETAMINOPHEN] Drug Allergy 10-10-19 dizziness, and stomach issues [facility] Comment on above: Onset Date: 01/21/20 19 (20 sources) Nitrofurantoin; Translations: [NITROFURANTOIN] Drug Allergy 10-10-19 24 [facility] (19 sources) Darvocet A500 *ANALGESICS - OP Allergy to substance 08-15-19 [facility] Comment on above: Free Text Allergy: D arvocet A500 *ANALGESICS - OPIOID*; Onset Date: 01/20/2019 (3 sources) Acetaminophen / oxyCODONE; Translations: [OXYCODONE-ACETAM INOPHEN] Drug Allergy 09-07-19 GI intolerance, Rash, Unknown [facility] (2 sources) Lisinopril Allergy to substance 03-10-20 [facility] (2 sources) Wound Dressing Adhesive Drug Intolerance 08-04-19 03 [facility] (1 source) ADHESIVE TAPE-SILICONES; Translations: [ADHESIVE TAPE-SILICONES] Propensity to adverse reactions to drug (disorder) 08-04-19 [facility] (1 source) PROPOXYPHENE N-ACETAMINOPHEN; Translations: [PROPOXYPHENE N-ACETAMINOPHEN] Propensity to adverse reactions to drug (disorder) 09-07-19 [facility] Medications Current Medications Medication Drug Class(es) Dates Sig (Normalized) Sig (Original) [id number] 200 actuat albuterol 0.09 mg/actuat metered dose inhaler (6 sources) beta2-Adrenergic Agonist Start: 07-08-2024 take 1 puff(s) by inhalation every four to six hours as needed Albuterol Sulfate 90 mcg/actuation HFA aerosol inhaler Active 2 PUFF INHALATION EVERY 4-6 HOURS as needed for bronchospasm 8.5 July 08, 2024 1:00am Complies with drug therapy Nevaeh Allergy 180 MG (11 sources) take [...] MG PO Daily February 12, 2023 12:00am Complies with drug therapy take 1 tablet by mouth in the mo rning aspirin 81 MG EC tablet Take 81 mg by mouth in the morning. Active take 1 tablet by mouth once ainsley y Aspir-Low 81 MG 1 tablet Orally Once a day Active azithromycin 250 mg oral tablet (4 sources) [...] Blood-Glucose Meter [place]True [place]x Gl[place] M[place] [facility] [place] Start: 12-11-2023 Blood-Glucose Meter (True Metrix Glucose Meter[place] [facility] [place] 0 .Route 1 December 10, 2023 11:00pm to test blood sugar daily Start: 12-11-2023 Blood-Glucose Meter (True Metrix Glucose Meter[place] [facility] [place] 0 .Route 1 December 11, 2023 12:00am to test blood sugar daily carvedilol 25 mg oral tablet (20 sources) alpha-Adrenergic Monika, beta-Adrenergic Monika Start: 03-23-2024 Carvedilol 25 mg tablet Active 12.5 MG PO Twice daily March 23, 2024 12:00am Complies with drug therapy Start: 03-23-2024 take 12.5 mg by mout h twice daily Carvedilol Active 12.5 MG PO Twice daily March 23, 2024 12:00am Start: 08-07-2022 End: 03-23-2024 take 2 tablets by mouth twice daily Carvedilol 3.125 mg tablet Discontinued 6.25 MG PO Twice daily August 07, 2022 1:00am March 23, 2024 10:27am Start: 08-07-2022 End: 03-23-2024 take 6.25 mg [...] day Active cholecalciferol 0.125 mg oral tablet (20 sources) Vitamin D Start: 02-12-2023 Cholecalcifero l (Vitamin D3) (Vitamin D3) 125 mcg (5,000 unit) Tablet Active 5000 UNIT PO .2xweek February 12, 2023 12:00am Complies with drug therapy Start: 02-12-2023 take 1 tablet by michael [...] MonThu, # 42.5 gm, Refills(s) 3, Pharmacy: [facility] 536, 160, cm, 08/16/21 15:10:00 EST, Height/Length Dosing, 130, kg, 08/16/21 15:10:00 EST, Weight Dosing Start Date: 08/16/21 Status: Ordered ezetimibe 10 mg oral tablet (20 sources) Dietary Cholesterol Absorption Inhibitor Start: 08-07-19 take 1 tablet by mouth once daily Ezetimibe (Zetia) 10 mg Tablet Active 10 MG PO Daily August 07, 2022 1:00am Complies with drug therapy Start: 08-07-2022 take 1 tablet by michael th twice daily Ezetimibe (Zetia) 10 mg Tablet Active 10 MG PO Twice daily August 07, 2022 1:00am fexofenadine hydrochloride 180 mg oral tablet (20 sources) Histamine-1 Receptor Antagonist Start: 03-23-2024 take 1 tablet by mouth once daily Fexofenadine (Nevaeh Allergy) 180 mg tablet Active 180 MG PO Daily March 23, 2024 12:00am Complies with drug therapy Start: 02-12-2023 End: 01-15-2024 take 1 tablet by mouth once daily Fexofenadine (Nevaeh) 180 mg Tablet Discontinued 180 MG PO Daily February 12, 2023 12:00am January 15, 2024 10:48am furosemide 20 mg oral tablet (20 sources) Loop Diuretic Start: 11-12-2024 take 1 tablet by mouth twice daily Furosemide 20 mg tablet Active 20 MG PO Twice daily November 12, 2024 12:56pm Complies with drug therapy Start: 10-29-2024 End: 11-12-2024 take 10 mg by mouth twice daily Furosemide 20 mg table t Discontinued 10 MG PO Twice daily October 29, 2024 11:29am November 12, 2024 12:56pm Start: 03-23-2024 End: 10-29-2024 Furosemide 20 mg tablet Disc ontinued 10 MG PO Every 48 hours March 23, 2024 10:30am October 29, 2024 11:30am Start: 03-23-2024 Furosemide Act leann 10 MG PO Every 48 hours March 23, 2024 10:30am Start: 01-15-2024 End: 03-23-2024 take 5 mg by mouth once daily as needed Furosemide 20 mg tablet Discontinued 5 MG PO daily as needed January 15, 2024 10:47am March 23, 2024 10:31am every other day Start: 01-15-2024 End: 03-23-2024 take 5 mg by mouth once daily Furosemide Discontinued 5 MG PO daily January 15, 2024 10:47am March 23, 2024 10:31am every other day Start: 12-04-2023 End: 01-15-2024 take 10 mg by mouth once daily Furosemide 20 mg tablet Discontinued 10 MG PO daily December 04, 2023 12:00am January 15, 2024 10:48am Start: 12-04-2023 End: 01-15-2024 take 10 mg [...] mg oral tablet (20 sources) Sulfonylurea Start: 08-24-2024 take 1 tablet by mouth once daily Glipizide 10 mg tablet Active 0 .ROUTE .COMPLEX August 24, 2024 11:54am TAKE 1 TABLET BY MOUTH DAILY Complies with drug therapy Start: 07-08-2024 End: 08-24-2024 take 1 tablet by mouth once daily Glipizide 10 mg tablet Discontinued 10 MG PO Daily July 08, 2024 12:55pm August 24, 2024 11:54am Start: 01-15-2024 End: 07-08-2024 take 5 mg by mouth once daily Glipizide 10 mg tablet Discontinued 5 MG PO Daily January 15, 2024 10:47am July 08, 2024 12:55pm Start: 01-15-2024 take 5 mg by mouth once daily Glipizide Active 5 MG PO Daily January 15, 2024 10:47am Start: 08-15-2023 End: 01-15-2024 take 1 tablet by mouth once daily Glipizide 10 mg tablet Discontinued 10 MG PO Daily September 04, 2023 12:40pm January 15, 2024 10:48am Start: 08-07-2022 End: 09-04-2023 take 1 tablet [...] Once a day for 90 days Active insulin isophane, human 70 unt/ml / insulin, regular, human 30 unt/ml injectable suspension (20 sources) Insulin Start: 09-11-2024 Insulin Nph An d Regular Human (Novolin 70/30 U-100 Insulin) 100 unit/mL (70-30) suspension Active SUBCUT September 11, 2024 12:00am [employer] Subcutaneous daily; Note: Source Status: Taking; Provider: Ray Faria ( ) Complies with drug therapy Start: 03-23-2024 Insulin Nph An d Regular Human (Novolin 70-30 Flexpen U-100) 100 unit/mL (70-30) insulin pen Active 30 UNIT SUBCUT Daily March 23, 2024 10:27am Complies with drug therapy Start: 03-23-2024 Insulin Nph An d Regular [...] 0-30) 100 UNIT/ML as directed Subcutaneous Active Lactobacillus Combination No.9 (Adult 50 Plus Probiotic) 4 billion cell capsule (4 sources) Start: 09-14-2024 take 4 capsules by mouth once daily Lactobacillus Combination No.9 (Adult 50 Plus Probiotic) 4 billion cell capsule Active 4000 MMU CELLS PO Daily September 14, 2024 12:00am administer with a meal Complies with drug therapy Start: 09-14-2024 take 4 capsules by m outh once daily Lactobacillus Combination No.9 (Adult 50 Plus Probiotic) 4 billion cell capsule Active 4000 MMU CELLS PO Daily September 14, 2024 12:00am administer with a meal Novalin (1 source) Start: 08-16-2021 Novalin Novalin Start Date: 08/16/21 Status: Ordered ondansetron 4 mg disintegrating oral tablet (20 sources) Serotonin-3 Receptor Antagonist Start: 07-08-2024 take 1 tablet by mouth every eight hours as needed for nausea and vomiting Ondansetron 4 mg tablet,disintegra ting Active 4 MG PO Q8H as needed for nausea and vomiting July 08, 2024 1:00am Complies with drug therapy Start: 12-05-2022 take 1 tablet by michael th three times daily as needed Ondansetron 4 MG 1 tablet on the tongue and allow to dissolve Orally tid prn for 5 Nov, Active Start: 07-23-2021 End: 08-07-2022 take 1 tablet by mouth four times daily as needed for nausea and vomiting Ondansetron 4 mg tablet,disintegrating Discontinued 4 MG PO Four times daily as needed for nausea and vomiting July 23, 2021 1:00am August 07, 2022 8:18am Start: 12-31-2020 End: 07-23-2021 take 1 tablet by mouth every eight hours as needed for nausea and vomiting Ondansetron 4 mg tablet,disintegrating Discontinued 4 MG PO Q8H as needed for nausea and vomiting 14 December 31, 2020 12:00am July 23, [...] / HYDROcodone bitartrate 5 mg oral tablet (20 sources) Opioid Agonist Start: 07-23-2021 End: 08-07-2022 take 1 tablet by mouth every six hours as needed for pain Hydrocodone-Acetam inophen 5-325 mg tablet Discontinued 1 TAB PO Q6H as needed for pain 10 3 July 23, 2021 August 07, 2022 8:18am atorvastatin 80 mg oral tablet (20 sources) HMG-CoA Reductase Inhibitor Start: 12-13-2020 End: 07-08-2024 take 1 tablet by mouth once daily Atorvastatin 80 mg tablet Discontinued 80 MG PO Daily September 04, 2023 12:40pm July 08, 2024 12:55pm cefdinir 300 mg oral capsule (20 sources) Cephalosporin Antibacterial Start: 12-31-2020 End: 07-23-2021 take 1 capsule by mouth twice daily Cefdinir 300 mg capsule Discontinued 300 MG PO Twice daily 12 04December 31, 2020 12:00am July 23, 2021 2:44pm cephalexin 500 mg oral capsule (20 sources) Cephalosporin Antibacterial Start: 07-23-2021 End: 08-07-2022 take 1 capsule by mouth every eight hours Cephalexin 500 mg capsule Discontinued 500 MG PO Q8H 22 04July 23, 2021 1:00am August 07, 2022 8:21am Start: 12-13-2020 End: 12-30-2020 take 1 capsule by mouth twice daily Cephalexin 500 mg capsule Discontinued 500 MG PO Twice daily 12 04December 13, 2020 12:00am December 30, 2020 5:28am cyclobenzaprine hydrochloride 5 mg oral tablet (20 [...] 29, 2020 11:00pm Insulin Nph And Regular Antonette n 100 unit/mL (70-30) Syringe (8 sources) Start: 12-30-2020 End: 02-12-2023 Insulin Nph And Regular Antonette n 100 unit/mL (70-30) Syringe Discontinued 25 UNIT SUBCUT Daily December 30, 2020 12:00am February 12, 2023 9:58am Start: 12-30-2020 End: 02-12-2023 Insulin Nph And Regular Antonette n 100 unit/mL (70-30) Syringe Discontinued 25 UNIT SUBCUT Daily December 29, 2020 11:00pm February 12, 2023 8:58am lisinopril 5 mg oral tablet (20 sources) Angiotensin Converting Enzyme Inhibitor Start: 12-04-2023 End: 01-15-2024 take 5 tablets by mouth twice daily Lisinopril 5 mg tablet Discontinued 25 MG PO Twice daily December 04, 2023 11:48am January 15, 2024 10:48am Start: 12-04-2023 End: 01-15-2024 take 25 mg by mouth twice daily Lisinopril Discontinue d 25 MG PO Twice daily December 04, 2023 11:48am January 15, 2024 10:48am Start: 10-15-2023 End: 01-15-2024 take 1 tablet by mouth once daily Lisinopril 5 mg tablet Discontinued 5 MG PO Daily December 04, 2023 12:00am January 15, 2024 10:48am nitrofurantoin, macrocrystals 25 mg / nitrofurantoin, monohydrate 75 mg oral capsule (20 sources) Nitrofuran Antibacterial Start: 12-13-2020 End: 12-13-2020 take 1 capsule by mouth twice daily as needed for pain Nitrofurantoin Monohyd/M-Cryst 100 mg capsule Discontinued 100 MG PO Twice daily as needed for Pain December 13, 2020 12:00am December 13, 2020 9:52pm pregabalin 25 mg oral capsule (20 sources) Start: 10-10-2023 End: 10-15-2023 take 1 capsule by mouth once daily Pregabalin (Lyrica) 25 mg capsule Discontinued 25 MG PO Daily October 10, 2023 12:00am October 15, 2023 9:41am Start: 10-23-2022 End: 02-12-2023 take 1 capsule by mouth once daily Pregabalin 75 mg capsule Discontinued 75 MG PO Daily October 23, 2022 12:00am February 12, 2023 9:57am Start: 08-28-2022 take 1 capsule by [facility] every twelve hours Lyrica 75 MG 1 capsule Orally Twice a day for 90 days Aug, Active promethazine hydrochloride 12.5 mg oral tablet (20 sources) Phenothiazine Start: 12-13-2020 End: 12-30-2020 take 1 tablet by mouth three times daily as needed for nausea Promethazine 12.5 mg tablet Discontinued 12.5 MG PO Three times daily as needed for Nausea December 13, 2020 12:00am December 30, 2020 5:28am sertraline 50 mg oral tablet (9 sources) Serotonin Reuptake Inhibitor Start: 04-06-2024 End: 07-08-2024 take 1 tablet by mouth once daily Sertraline 50 mg tablet Discontinued 50 MG PO Daily April 06, 2024 12:00am July 08, 2024 12:48pm sulfamethoxazole 800 mg / trimethoprim 160 mg oral tablet (6 sources) Dihydrofolate Reductase Inhibitor Antibacterial, Sulfonamide Antimicrobial Start: 01-13-2025 End: 02-09-2025 take 1 tablet by mouth twice daily Sulfamethoxazole- Trimethoprim (Bactrim Ds) 800-160 mg tablet Discontinued 1 TAB PO Twice daily January 13, 2025 12:00am February 09, 2025 11:37am Start: 07-08-2024 End: 09-14-2024 take 1 tablet by mouth twice daily Sulfamethoxazole-Trimethoprim 800-160 mg tablet Discontinued 1 TAB PO Twice daily July 08, 2024 1:00am September 14, 2024 11:03am traMADol hydrochloride 50 mg oral tablet (20 [...] Episodic Congestive heart failure; nonhypertensive (4 sources) Acute combined systolic (congestive) and diastolic (congestive) heart failure; Translations: [Chronic diastolic (congestive) heart failure] Onset: 5 Chronic Coronary atherosclerosis and other heart disease (2 sources) Atherosclerotic heart disease of [place] coronary artery without angina pectoris; Translations: [Atherosclerotic heart disease of [place] coronary artery without angina pectoris] Onset: 2 Chronic Deficiency and other anemia (15 sources) Anemia; Translations: [Anemia, unspecified] 12-04-2023 Episodic Deficiency and other anemia (3 sources) Anemia, unspecified; Translations: [Anemia, unspecified] 12-04-2023 Episodic Diabetes mellitus with complications (20 sources) Type 2 diabetes mellitus; Translations: [Type 2 diabetes mellitus with hyperglycemia] Onset: 3 Chronic Diabetes mellitus without complication (4 sources) Diabetes mellitus; Translations: [Type 2 diabetes mellitus without complication] Onset: 9 08-16-2021 Chronic Diabetes mellitus without complication (20 sources) Hyperglycemia; Translations: [Hyperglycemia, unspecified] 12-13-2020 Episodic Comment on above: Problem List clean-u p per request of Phys. EHR Cmte Disorders of lipid metabolism (20 sources) Hypercholesterolemia; Translations: [Mixed hyperlipidemia] Onset: 9 08-16-2021 Chronic Essential hypertension (20 sources) Essential hypertension; Translations: [Essential (primary) hypertension] Onset: 3 Chronic Genitourinary symptoms and ill-defined conditions (20 sources) Increased frequency of urination; Translations: [Urinary symptoms ] 08-16-2021 Episodic Glaucoma (1 source) Glaucoma 08-16-2021 Chronic Hypertension with complications and secondary hypertension (20 sources) Hypertensive urgency; Translations: [Hypertensive urgency ] Onset: 2 03-23-2024 Chronic Immunizations and screening for infectious disease (3 sources) Vaccination given; Translations: [Encounter for immunization] Episodic Inflammation; infection of eye (except that caused by tuberculosis or sexually transmitteddisease) (3 sources) Conjunctivitis; Translations: [Unspecified conjunctivitis] Episodic Malaise and fatigue (3 sources) Fatigue; Translations: [Other fatigue] Episodic Menopausal disorders (4 sources) Menopausal problem; Translations: [Atrophic vaginitis] 08-16-2021 Chronic Mood disorders (12 sources) Major depression, single episode; Translations: [Major [...] sources) Long-term current use of insulin; Translations: [FPC (current) use of insulin] Episodic Other aftercare (2 sources) moth 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 Episodic Other [...] unspecified hip Episodic Other connective tissue disease (6 sources) Hand pain; Translations: [Pain in right hand] 07-07-2024 Episodic Other connective tissue disease (7 sources) Triggering of digit; Translations: [Trigger finger, right index finger] 07-07-2024 Episodic Other connective tissue disease (4 sources) Pain in right hand; Translations: [Pain in limb] 07-07-2024 Episodic Other connective tissue disease (4 sources) Trigger finger, right index finger; Translations: [Trigger finger (acquired)] 07-07-2024 Episodic Other connective tissue disease (1 source) Pain in right hand; Translations: [Pain in right hand] 07-07-2024 Episodic Other diseases of kidney and ureters (12 sources) Secondary hyperparathyroidism; Translations: [Secondary hyperparathyroidism of renal origin] 03-23-2024 Chronic Other diseases of kidney and ureters (4 sources) Secondary hyperparathyroidism of renal origin; Translations: [...] upper limb] Chronic Other nervous system disorders (5 sources) Carpal tunnel syndrome, left upper limb; Translations: [Carpal tunnel syndrome] Chronic Other non-traumatic joint disorders (20 sources) [...] Episodic Other nutritional; endocrine; and metabolic disorders (6 sources) Body mass index 40+ - severely obese; Translations: [Body mass index (BMI) 50.0-59.9, adult] 08-16-2021 Chronic Other nutritional; endocrine; and metabolic disorders (1 source) Morbid (severe) obesity due to excess calories; Translations: [MORBID SEVERE OBES D/T EXCESS AZEB] Onset: 2 Chronic Other nutritional; endocrine; and metabolic disorders (4 sources) Body mass index (BMI) 50.0-59.9, adult; Translations: [Body Mass Index 50.0-59.9, adult] Onset: 2 10-29-2024 Chronic Other nutritional; endocrine; and metabolic disorders (3 sources) Abnormal weight gain; Translations: [Abnormal weight gain] Episodic Other screening for suspected conditions (not mental disorders or infectious disease) (7 sources) Abnormal electrocardiogram [ECG] [EKG]; Translations: [Abnormal results of cardiovascular function studies] Onset: 2 Episodic Other skin disorders (1 source) Disorder of the skin and subcutaneous tissue, unspecified Episodic Other skin disorders (20 sources) Localized swelling, mass and lump, right upper limb; Translations: [Mass of right axilla] 09-04-2023 Episodic Other skin disorders (19 sources) Mass of chest wall; Translations: [Localized swelling, mass and lump, trunk] 09-04-2023 Episodic Other skin disorders (19 sources) Loss of hair; Translations: [Nonscarring hair [...] right ear] Chronic Septicemia (except in labor) (20 sources) Sepsis; Translations: [Sepsis, unspecified organism] 12-30-2020 Episodic Comment on above: Problem List clean-u p per request of Phys. EHR Cmte Skin and subcutaneous tissue infections (20 sources) Cellulitis of scalp; Translations: [Cellulitis of [...] of right lower leg, initial encounter] Episodic Thyroid disorders (7 sources) Thyroid nodule; Translations: [Nontoxic single thyroid nodule] 09-14-2024 Chronic Unclassified (1 source) CONTACT W/AND (SUSP) EXPOS COVID-19; Translations: [CONTACT W/AND (SUSP) EXPOS COVID-19] Onset: 2 Unclassified (1 source) Obesity, class 3; Translations: [Obesity, class 3] Onset: 5 Urinary tract infections (20 sources) Urinary tract infectious disease; Translations: [Urinary tract infection, site not specified] 07-23-2021 Episodic Comment on above: Problem List clean-u p per request of Phys. EHR Cmte Past or Other Problems Problem Classification Problem Date Documented Da te Episodic/Chronic Other aftercare (1 source) Other fdc (current) drug therapy; Translations: [OTH JAIL CURRENT DRUG THERAPY] Onset: 06-14-2022 Episodic Other [...] Lumbar pain M54.50 Onset: 03-12-2022 Resolved: 03-12-2022 Unclassified (1 source) Obesity, class 3; Translations: [Obesity, class 3] Onset: 10-20-2024 Results Test Name Value Interpretation Reference Range Facility Office Visiton 11-19-2024 Follow-up visit [id number] Libra Noonan 1950 F Date Provider Department Center 11/19/2024 PLACIDO PECK C[facility] Family History Problem Relation Age of Onset Rheumatic fever Mother Heart failure Mother Stroke Mother Other Mother Comments: She is unsure if this was a defibrillator Stroke Father Family Status - Relation Status Age at Mother Father Level of Service:54435 SD OFFICE/OUTPATIENT ESTABLISHED LOW MDM 20 MIN Normal [facility] 36on 11-02-2024 36 Regarding lab result s from 10/30/2024: MD Lorenza Atkinson MA Please make sure she is seeing a jet handler Thanks. Spoke with patient and she is following with Dr. Brush. Lab results faxed to their office. Normal [facility] Estimated glomerular filtrat ion rate (GFR) non- Americanon 10-30-2024 GFR/1.73 sq M.predicted among non-blacks MDRD (S/P/Bld) [Vol rate/Area] Estimated glomerular filtration rate (GFR) non- Low >=60 mL/min/1.73m 2 [facility] Glucose mean value [Mass/vol ume] in Blood Estimated from glycated hemoglobinon 10-30-2024 Average glucose Estimated from glycated hemoglobin (Bld) [Mass/Vol] Glucose mean value [Mass/volume] in Blood Estimated from glycated hemoglobin [facility] Hemoglobin A1c percentageon 10-30-2024 HbA1c (Bld) [Mass fraction] Hemoglobin A1c percentage High 4.5-6.2 [facility] Comment on above: ADA RECOMMENDED LIMI T 4.0 - 6.0ADA THERAPEUTIC TARGET < 7.0ACTION SUGGESTED> 7.0 Laboratory - Chemistry and C hemistry - challengeon 10-30-2024 Calcium [Mass/Vol] 9.0 mg/dL 8.5-10.1 [facility] Chloride [Moles/Vol] 104 mmol/L 98-107 [facility] CO2 [Moles/Vol] 27.5 mmol/L 21.0-32.0 [facility] Creatinine [Mass/Vol] 1.66 mg/dL High 0.55-1.02 [facility] GFR/1.73 sq M.predicted MDRD (S/P/Bld) [Vol rate/Area] 37 mL/min/{1.73_m2} Low >=60 mL/min/1.73m 2 [facility] Glucose [Mass/Vol] 207 mg/dL High 74-106 [facility] Potassium [Moles/Vol] 4.7 mmol/L 3.5-5.1 [facility] Sodium [Moles/Vol] 139 mmol/L 136-145 [facility] Urea nitrogen [Mass/Vol] 49.0 mg/dL High 7.0-18.0 [facility] Urea nitrogen/Creatinine [Mass ratio] 29.5 mg/mg [facility] Serum or plasma anion gap de terminationon 10-30-2024 Anion gap [Moles/Vol] Serum or plasma anion gap determination [facility] Office Visiton 10-20-2024 Follow-up visit [id number] Libra Noonan 1950 F Date Provider Department Center 10/20/2024 271-PLACIDO TORRES CARD [facility] Family History Problem Relation Age of Onset Rheumatic fever Mother Heart failure Mother Stroke Mother Other Mother Comments: She is unsure if this was a defibrillator Stroke Father Family Status - Relation Status Age at Mother Father Level of Service:35356 SD OFFICE/OUTPATIENT ESTABLISHED MOD MDM 30 MIN Normal [facility] Basophils Auto (Bld) [#/Vol] on 10-15-2024 Basophils (Bld) [#/Vol] Automated basophil count 0.0-0.1 [facility] Basophils/100 WBC Auto (Bld) on 10-15-2024 Basophils/100 WBC (Bld) Automated basophil % 0.2-2.0 [facility] Eosinophils/100 WBC Auto (Bl d)on 10-15-2024 Eosinophils/100 WBC (Bld) Automated eosinophil % 0.9-7.0 [facility] Erythrocyte distribution wid th Auto (RBC) [Ratio]on 10-15-2024 Erythrocyte distribution width (RBC) [Ratio] Erythrocyte distribution width [Ratio] by Automated count 11.0-15.0 [facility] Estimated glomerular filtrat ion rate (GFR) non- Americanon 10-15-2024 GFR/1.73 sq M.predicted among non-blacks MDRD (S/P/Bld) [Vol rate/Area] Estimated glomerular filtration rate (GFR) non- Low >=60 mL/min/1.73m 2 [facility] Hematocrit Auto (Bld) [Volum e fraction]on 10-15-2024 Hematocrit (Bld) [Volume fraction] Hematocrit [Volume Fraction] of Blood by Automated count 36.0-48.0 [facility] Hemoglobin [Mass/volume] in Bloodon 10-15-2024 Hemoglobin (Bld) [Mass/Vol] Hemoglobin [Mass/volume] in Blood Low 12.0-16.0 [facility] Laboratory - Chemistry and C hemistry - challengeon 10-15-2024 Calcium [Mass/Vol] 9.0 mg/dL 8.5-10.1 [facility] Chloride [Moles/Vol] 105 mmol/L 98-107 [facility] CO2 [Moles/Vol] 25.9 mmol/L 21.0-32.0 [facility] Creatinine [Mass/Vol] 1.54 mg/dL High 0.55-1.02 [facility] GFR/1.73 sq M.predicted MDRD (S/P/Bld) [Vol rate/Area] 40 mL/min/{1.73_m2} Low >=60 mL/min/1.73m 2 [facility] Glucose [Mass/Vol] 245 mg/dL High 74-106 [facility] Natriuretic peptide B (Bld) [Mass/Vol] 516.0 pg/mL <=900.0 [facility] Potassium [Moles/Vol] 4.7 mmol/L 3.5-5.1 [facility] Sodium [Moles/Vol] 140 mmol/L 136-145 [facility] Urea nitrogen [Mass/Vol] 36.0 mg/dL High 7.0-18.0 [facility] Urea nitrogen/Creatinine [Mass ratio] 23.4 mg/mg [facility] Laboratory - Hematology and Cell countson 10-15-2024 Immature granulocytes/100 WBC (Bld) 0.3 % 0.0-0.5 [facility] Leukocytes [#/volume] correc nicholas for nucleated erythrocytes in Blood by Automated counon 10-15-2024 WBC corrected for nucl RBC Auto (Bld) [#/Vol] Leukocytes [#/volume] corrected for nucleated erythrocytes in Blood by Automated coun 4.0-11.0 [facility] Lymphocytes Auto (Bld) [#/Vo l]on 10-15-2024 Lymphocytes (Bld) [#/Vol] Lymphocytes [#/volume] in Blood by Automated count 1.2-3.8 [facility] Lymphocytes/100 WBC Auto (Bl d)on 10-15-2024 Lymphocytes/100 WBC (Bld) Lymphocytes/100 leukocytes in Blood by Automated count 20.5-60.0 [facility] MCH Auto (RBC) [Entitic mass ]on 10-15-2024 MCH (RBC) [Entitic mass] MCH [Entitic mass] by Automated count 26.7-34.0 [facility] MCHC Auto (RBC) [Mass/Vol]on 10-15-2024 MCHC (RBC) [Mass/Vol] MCHC [Mass/volume] by Automated count 29.9-35.2 [facility] MCV Auto (RBC) [Entitic vol] on 10-15-2024 MCV (RBC) [Entitic vol] MCV [Entitic volume] by Automated count 81.0-99.0 [facility] Monocytes Auto (Bld) [#/Vol] on 10-15-2024 Monocytes (Bld) [#/Vol] Automated blood monocyte count 0.3-0.8 [facility] Monocytes/100 WBC Auto (Bld) on 10-15-2024 Monocytes/100 WBC (Bld) Automated monocyte % 1.7-12.0 [facility] Neutrophils Auto (Bld) [#/Vo l]on 10-15-2024 Neutrophils (Bld) [#/Vol] Neutrophils [#/volume] in Blood by Automated count 1.4-6.5 [facility] Neutrophils/100 WBC Auto (Bl d)on 10-15-2024 Neutrophils/100 WBC (Bld) Automated neutrophil % 43.0-75.0 [facility] No Panel Informationon 10-15 Eosinophils # (Auto) 0.3 10 3/uL 0.0-0.7 [facility] Immature Granulocyte # (Auto) 0.02 10 3/uL 0.00-0.03 [facility] Platelet mean volume Auto (B ld) [Entitic vol]on 10-15-2024 Platelet mean volume (Bld) [Entitic vol] Platelet mean volume [Entitic volume] in Blood by Automated count 9.5-13.5 [facility] Platelets Auto (Bld) [#/Vol] on 10-15-2024 Platelets (Bld) [#/Vol] Platelets [#/volume] in Blood by Automated count 150-450 [facility] RBC Auto (Bld) [#/Vol]on RBC (Bld) [#/Vol] Erythrocytes [#/volume] in Blood by Automated count Low 4.20-5.40 [facility] Serum or plasma anion gap de terminationon 10-15-2024 Anion gap [Moles/Vol] Serum or plasma anion gap determination [facility] Estimated glomerular filtrat ion rate (GFR) non- Americanon 09-16-2024 GFR/1.73 sq M.predicted among non-blacks MDRD (S/P/Bld) [Vol rate/Area] Estimated glomerular filtration rate (GFR) non- Low >=60 mL/min/1.73m 2 [facility] Laboratory - Chemistry and C hemistry - challengeon 09-16-2024 Calcium [Mass/Vol] 9.2 mg/dL 8.5-10.1 [facility] Chloride [Moles/Vol] 106 mmol/L 98-107 [facility] CO2 [Moles/Vol] 24.5 mmol/L 21.0-32.0 [facility] Creatinine [Mass/Vol] 1.55 mg/dL High 0.55-1.02 [facility] GFR/1.73 sq M.predicted MDRD (S/P/Bld) [Vol rate/Area] 40 mL/min/{1.73_m2} Low >=60 mL/min/1.73m 2 [facility] Glucose [Mass/Vol] 228 mg/dL High 74-106 [facility] Natriuretic peptide B (Bld) [Mass/Vol] 454.0 pg/mL <=900.0 [facility] Potassium [Moles/Vol] 4.5 mmol/L 3.5-5.1 [facility] Sodium [Moles/Vol] 139 mmol/L 136-145 [facility] Urea nitrogen [Mass/Vol] 37.0 mg/dL High 7.0-18.0 [facility] Urea nitrogen/Creatinine [Mass ratio] 23.9 mg/mg [facility] Office Visiton 09-16-2024 Follow-up visit [id number] Libra Noonan 1950 F Date Provider Department Center 09/16/2024 [id number] Family History Problem Relation Age of Onset Rheumatic fever Mother Heart failure Mother Stroke Mother Other Mother Comments: She is unsure if this was a defibrillator Stroke Father Family Status - Relation Status Age at Mother Father Level of Service:49480 SD OFFICE/OUTPATIENT ESTABLISHED LOW MDM 20 MIN Normal [facility] Serum or plasma anion gap de terminationon 09-16-2024 Anion gap [Moles/Vol] Serum or plasma anion gap determination [facility] Basophils Auto (Bld) [#/Vol] on 09-05-2024 Basophils (Bld) [#/Vol] Automated basophil count 0.0-0.1 [facility] Basophils/100 WBC Auto (Bld) on 09-05-2024 Basophils/100 WBC (Bld) Automated basophil % 0.2-2.0 [facility] Eosinophils/100 WBC Auto (Bl d)on 03-15-2025 Eosinophils/100 WBC (Bld) Automated eosinophil % 0.9-7.0 [facility] Erythrocyte distribution wid th Auto (RBC) [Ratio]on 09-05-2024 Erythrocyte distribution width (RBC) [Ratio] Erythrocyte distribution width [Ratio] by Automated count 11.0-15.0 [facility] Estimated glomerular filtrat ion rate (GFR) non- Americanon 09-05-2024 GFR/1.73 sq M.predicted among non-blacks MDRD (S/P/Bld) [Vol rate/Area] Estimated glomerular filtration rate (GFR) non- Low >=60 mL/min/1.73m 2 [facility] Globulin Calc (S) [Mass/Vol] on 09-05-2024 Globulin (S) [Mass/Vol] Serum globulin measurement by calculation (mass/volume) [facility] Hematocrit Auto (Bld) [Volum e fraction]on 09-05-2024 Hematocrit (Bld) [Volume fraction] Hematocrit [Volume Fraction] of Blood by Automated count Low 36.0-48.0 [facility] Hemoglobin [Mass/volume] in Bloodon 09-05-2024 Hemoglobin (Bld) [Mass/Vol] Hemoglobin [Mass/volume] in Blood Low 12.0-16.0 [facility] Laboratory - Chemistry and C hemistry - challengeon 09-05-2024 Albumin [Mass/Vol] 3.0 g/dL Low 3.4-5.0 [facility] ALP [Catalytic activity/Vol] 87 U/L 46-116 [facility] ALT [Catalytic activity/Vol] 21 U/L 14-59 [facility] AST [Catalytic activity/Vol] 17 U/L 15-37 [facility] Bilirubin [Mass/Vol] 0.4 mg/dL 0.2-1.0 [facility] Calcium [Mass/Vol] 8.8 mg/dL 8.5-10.1 [facility] Chloride [Moles/Vol] 106 mmol/L 98-107 [facility] CO2 [Moles/Vol] 25.4 mmol/L 21.0-32.0 [facility] Creatinine [Mass/Vol] 1.39 mg/dL High 0.55-1.02 [facility] GFR/1.73 sq M.predicted MDRD (S/P/Bld) [Vol rate/Area] 45 mL/min/{1.73_m2} Low >=60 mL/min/1.73m 2 [facility] Glucose [Mass/Vol] 139 mg/dL High 74-106 [facility] Magnesium [Mass/Vol] 1.9 mg/dL 1.8-2.4 [facility] Potassium [Moles/Vol] 4.0 mmol/L 3.5-5.1 [facility] Protein [Mass/Vol] 6.0 g/dL Low 6.4-8.2 [facility] Sodium [Moles/Vol] 141 mmol/L 136-145 [facility] Urea nitrogen [Mass/Vol] 30.0 mg/dL High 7.0-18.0 [facility] Urea nitrogen/Creatinine [Mass ratio] 21.6 mg/mg [facility] Laboratory - Hematology and Cell countson 09-05-2024 Immature granulocytes/100 WBC (Bld) 0.1 % 0.0-0.5 [facility] Leukocytes [#/volume] correc nicholas for nucleated erythrocytes in Blood by Automated counon 09-05-2024 WBC corrected for nucl RBC Auto (Bld) [#/Vol] Leukocytes [#/volume] corrected for nucleated erythrocytes in Blood by Automated coun 4.0-11.0 [facility] Lymphocytes Auto (Bld) [#/Vo l]on 09-05-2024 Lymphocytes (Bld) [#/Vol] Lymphocytes [#/volume] in Blood by Automated count 1.2-3.8 [facility] Lymphocytes/100 WBC Auto (Bl d)on 09-05-2024 Lymphocytes/100 WBC (Bld) Lymphocytes/100 leukocytes in Blood by Automated count 20.5-60.0 [facility] MCH Auto (RBC) [Entitic mass ]on 09-05-2024 MCH (RBC) [Entitic mass] MCH [Entitic mass] by Automated count 26.7-34.0 [facility] MCHC Auto (RBC) [Mass/Vol]on 09-05-2024 MCHC (RBC) [Mass/Vol] MCHC [Mass/volume] by Automated count 29.9-35.2 [facility] MCV Auto (RBC) [Entitic vol] on 09-05-2024 MCV (RBC) [Entitic vol] MCV [Entitic volume] by Automated count 81.0-99.0 [facility] Monocytes Auto (Bld) [#/Vol] on 09-05-2024 Monocytes (Bld) [#/Vol] Automated blood monocyte count 0.3-0.8 [facility] Monocytes/100 WBC Auto (Bld) on 09-05-2024 Monocytes/100 WBC (Bld) Automated monocyte % 1.7-12.0 [facility] Neutrophils Auto (Bld) [#/Vo l]on 09-05-2024 Neutrophils (Bld) [#/Vol] Neutrophils [#/volume] in Blood by Automated count 1.4-6.5 [facility] Neutrophils/100 WBC Auto (Bl d)on 09-05-2024 Neutrophils/100 WBC (Bld) Automated neutrophil % 43.0-75.0 [facility] No Panel Informationon 09-05 Eosinophils # (Auto) 0.2 10 3/uL 0.0-0.7 [facility] Immature Granulocyte # (Auto) 0.01 10 3/uL 0.00-0.03 [facility] Platelet mean volume Auto (B ld) [Entitic vol]on 09-05-2024 Platelet mean volume (Bld) [Entitic vol] Platelet mean volume [Entitic volume] in Blood by Automated count 9.5-13.5 [facility] Platelets Auto (Bld) [#/Vol] on 09-05-2024 Platelets (Bld) [#/Vol] Platelets [#/volume] in Blood by Automated count 150-450 [facility] RBC Auto (Bld) [#/Vol]on RBC (Bld) [#/Vol] Erythrocytes [#/volume] in Blood by Automated count Low 4.20-5.40 [facility] Serum or plasma albumin/glob ulin mass ratioon 09-05-2024 Albumin/Globulin [Mass ratio] Serum or plasma albumin/globulin mass ratio [facility] Serum or plasma anion gap de terminationon 09-05-2024 Anion gap [Moles/Vol] Serum or plasma anion gap determination [facility] Basophils Auto (Bld) [#/Vol] on 09-04-2024 Basophils (Bld) [#/Vol] Automated basophil count 0.0-0.1 [facility] Basophils/100 WBC Auto (Bld) on 09-04-2024 Basophils/100 WBC (Bld) Automated basophil % 0.2-2.0 [facility] Eosinophils/100 WBC Auto (Bl d)on 09-04-2024 Eosinophils/100 WBC (Bld) Automated eosinophil % 0.9-7.0 [facility] Erythrocyte distribution wid th Auto (RBC) [Ratio]on 09-04-2024 Erythrocyte distribution width (RBC) [Ratio] Erythrocyte distribution width [Ratio] by Automated count 11.0-15.0 [facility] Estimated glomerular filtrat ion rate (GFR) non- Americanon 09-04-2024 GFR/1.73 sq M.predicted among non-blacks MDRD (S/P/Bld) [Vol rate/Area] Estimated glomerular filtration rate (GFR) non- Low >=60 mL/min/1.73m 2 [facility] Hematocrit Auto (Bld) [Volum e fraction]on 09-04-2024 Hematocrit (Bld) [Volume fraction] Hematocrit [Volume Fraction] of Blood by Automated count 36.0-48.0 [facility] Hemoglobin [Mass/volume] in Bloodon 09-04-2024 Hemoglobin (Bld) [Mass/Vol] Hemoglobin [Mass/volume] in Blood 12.0-16.0 [facility] Laboratory - Chemistry and C hemistry - challengeon 09-04-2024 Calcium [Mass/Vol] 9.2 mg/dL 8.5-10.1 [facility] Chloride [Moles/Vol] 103 mmol/L 98-107 [facility] CO2 [Moles/Vol] 27.7 mmol/L 21.0-32.0 [facility] Creatinine [Mass/Vol] 1.70 mg/dL High 0.55-1.02 [facility] GFR/1.73 sq M.predicted MDRD (S/P/Bld) [Vol rate/Area] 36 mL/min/{1.73_m2} Low >=60 mL/min/1.73m 2 [facility] Glucose [Mass/Vol] 147 mg/dL High 74-106 [facility] Potassium [Moles/Vol] 4.7 mmol/L 3.5-5.1 [facility] Sodium [Moles/Vol] 140 mmol/L 136-145 [facility] Urea nitrogen [Mass/Vol] 29.0 mg/dL High 7.0-18.0 [facility] Urea nitrogen/Creatinine [Mass ratio] 17.1 mg/mg [facility] Laboratory - Hematology and Cell countson 09-04-2024 Immature granulocytes/100 WBC (Bld) 0.2 % 0.0-0.5 [facility] Laboratory - Microbiology an d Antimicrobial susceptibilityon 09-04-2024 SARS-CoV-2 (COVID-19) RNA LUIS+probe Ql (Unsp spec) Negative NEGATIVE [facility] Comment on above: This test has not be en FDA cleared or approved, but has beenauthorized by the FDA under an Emergency Use Authorization(EUA) for use by authorized laboratories certified underIA that meet the requirements to perform moderate or highcomplexity testing. This test has been authorized only forthe detection of proteins from SARS-CoV-2, not for any otherviruses or pathogens. The emergency use of this test isauthorized for the duration of the declaration thatcircumstances exist justifying the authorization ofemergency use of in vitro diagnostic tests for detectionand/or diagnosis of Covid-19 under section 564(b)(1) of theAct, 21 U.S.C. 360bbb-3(b)(1), unless the declaration isterminated or authorization is revoked sooner. Leukocytes [#/volume] correc nicholas for nucleated erythrocytes in Blood by Automated counon 09-04-2024 WBC corrected for nucl RBC Auto (Bld) [#/Vol] Leukocytes [#/volume] corrected for nucleated erythrocytes in Blood by Automated coun 4.0-11.0 [facility] Lymphocytes Auto (Bld) [#/Vo l]on 09-04-2024 Lymphocytes (Bld) [#/Vol] Lymphocytes [#/volume] in Blood by Automated count 1.2-3.8 [facility] Lymphocytes/100 WBC Auto (Bl d)on 09-04-2024 Lymphocytes/100 WBC (Bld) Lymphocytes/100 leukocytes in Blood by Automated count 20.5-60.0 [facility] MCH Auto (RBC) [Entitic mass ]on 09-04-2024 MCH (RBC) [Entitic mass] MCH [Entitic mass] by Automated count 26.7-34.0 [facility] MCHC Auto (RBC) [Mass/Vol]on 09-04-2024 MCHC (RBC) [Mass/Vol] MCHC [Mass/volume] by Automated count 29.9-35.2 [facility] MCV Auto (RBC) [Entitic vol] on 09-04-2024 MCV (RBC) [Entitic vol] MCV [Entitic volume] by Automated count 81.0-99.0 [facility] Monocytes Auto (Bld) [#/Vol] on 09-04-2024 Monocytes (Bld) [#/Vol] Automated blood monocyte count 0.3-0.8 [facility] Monocytes/100 WBC Auto (Bld) on 09-04-2024 Monocytes/100 WBC (Bld) Automated monocyte % 1.7-12.0 [facility] Neutrophils Auto (Bld) [#/Vo l]on 09-04-2024 Neutrophils (Bld) [#/Vol] Neutrophils [#/volume] in Blood by Automated count High 1.4-6.5 [facility] Neutrophils/100 WBC Auto (Bl d)on 09-04-2024 Neutrophils/100 WBC (Bld) Automated neutrophil % 43.0-75.0 [facility] No Panel Informationon 09-04 Bedside Influenza Type A Antigen Negative [facility] Comment on above: Negative for Flu A p rotein antigen. Infection due to Flu Acannot be ruled out. Flu A antigen in the sample may bebelow the detection limit of the test. Bedside Influenza Type B Antigen Negative [facility] Comment on above: Negative for Flu B p rotein antigen. Infection due to Flu Bcannot be ruled out. Flu B antigen in the sample may bebelow the detection limit of the test. Eosinophils # (Auto) 0.2 10 3/uL 0.0-0.7 [facility] Immature Granulocyte # (Auto) 0.02 10 3/uL 0.00-0.03 [facility] Troponin I High Sensitivity 13.5 pg/mL 4.0-51.3 [facility] Comment on above: CUT-OFF POINTS HAVE BEEN [...] mean volume Auto (B ld) [Entitic vol]on 09-04-2024 Platelet mean volume (Bld) [Entitic vol] Platelet mean volume [Entitic volume] in Blood by Automated count 9.5-13.5 [facility] Platelets Auto (Bld) [#/Vol] on 09-04-2024 Platelets (Bld) [#/Vol] Platelets [#/volume] in Blood by Automated count 150-450 [facility] RBC Auto (Bld) [#/Vol]on RBC (Bld) [#/Vol] Erythrocytes [#/volume] in Blood by Automated count 4.20-5.40 [facility] Serum or plasma anion gap de terminationon 09-04-2024 Anion gap [Moles/Vol] Serum or plasma anion gap determination [facility] Urine Cultureon 09-04-2024 Bacteria identified Cx Nom (U) >100,000 colonies/ml mixed bacterial skin contaminants 2 Days PERFORMED BY: [place] [address] PATHOLOG[employer] TIMI Weldon [facility] Comment on above: Performed By: #### C UU #### [address] Urine cultureOrdered By: Kingsley Fraga on 09-04-2024 Bacteria identified Cx Nom (U) Urine culture [facility] HbA1c HPLC (Bld) [Mass fract ion]on 04-06-2024 HbA1c (Bld) [Mass fraction] Hemoglobin A1c/Hemoglobin.total in Blood by HPLC [facility] No Panel Informationon 03-17 Type of biopsy: [...] taken. Amount of lidocaine used: 1 cc [facility] Type of biopsy: tangential Informed consent: [...] taken. Amount of lidocaine used: 3 cc [employer] [facility] Estimated glomerular filtrat ion rate (GFR) non- Americanon 03-16-2024 GFR/1.73 sq M.predicted among non-blacks MDRD (S/P/Bld) [Vol rate/Area] 43 mL/min/{1.73_m2} Low >=60 [facility] Laboratory - Chemistry and C hemistry - challengeon 03-16-2024 Calcium [Mass/Vol] 9.2 mg/dL 8.5-10.1 [facility] Chloride [Moles/Vol] 102 mmol/L 98-107 [facility] CO2 [Moles/Vol] 27.5 mmol/L 21.0-32.0 [facility] Creatinine [Mass/Vol] 1.23 mg/dL High 0.55-1.02 [facility] GFR/1.73 sq M.predicted MDRD (S/P/Bld) [Vol rate/Area] 52 mL/min/{1.73_m2} Low >=60 [facility] Glucose [Mass/Vol] 240 mg/dL High 74-106 [facility] Natriuretic peptide B (Bld) [Mass/Vol] 435.0 pg/mL <=900.0 [facility] Potassium [Moles/Vol] 4.2 mmol/L 3.5-5.1 [facility] Sodium [Moles/Vol] 136 mmol/L 136-145 [facility] Urea nitrogen [Mass/Vol] 37.0 mg/dL High 7.0-18.0 [facility] Urea nitrogen/Creatinine [Mass ratio] 30.1 mg/mg [facility] Office Visiton 03-16-2024 Follow-up visit [id number] Libra Noonan 1950 F Date Provider Department Center 03/16/2024 Des-PLACIDO TORRES C[facility] Family History Problem Relation Age of Onset Rheumatic fever Mother Heart failure Mother Stroke Mother Other Mother Comments: She is unsure if this was a defibrillator Stroke Father Family Status - Relation Status Age at Mother Father Level of Service:48162 SD OFFICE/OUTPATIENT ESTABLISHED MOD MDM 30 MIN Normal [facility] Serum or plasma anion gap de terminationon 03-16-2024 Anion gap [Moles/Vol] 10.7 mmol/L [facility] [facility] 36on 03-09-2024 36 Patient's daughter called prior to her apt with Dr. Torres on 03/16. She did not want to [...] wonders if she needs to see a call center specialist to check her lung function. Maybe she will qualify for cardiac rehab? Daughter DOES NOT WANT US TO TELL HER MOTHER THAT SHE SPOKE WITH US. Normal [facility] 36on 01-10-2024 36 Regarding BMP from 01/09/2024: MD Lorenza Atkinson MA Please let her know her s.cr is better. Would recommend staying on the current dose of diuretics Thanks Spoke with patient and informed her of message per Dr. Torres. She will continue furosemide 10mg every other day. Normal [facility] Estimated glomerular filtrat ion rate (GFR) non- Americanon 01-09-2024 GFR/1.73 sq M.predicted among non-blacks MDRD (S/P/Bld) [Vol rate/Area] 41 mL/min/{1.73_m2} Low >=60 [facility] Laboratory - Chemistry and C hemistry - challengeon 01-09-2024 Calcium [Mass/Vol] 8.9 mg/dL 8.5-10.1 [facility] Chloride [Moles/Vol] 107 mmol/L 98-107 [facility] CO2 [Moles/Vol] 28.8 mmol/L 21.0-32.0 [facility] Creatinine [Mass/Vol] 1.28 mg/dL High 0.55-1.02 [facility] GFR/1.73 sq M.predicted MDRD (S/P/Bld) [Vol rate/Area] 50 mL/min/{1.73_m2} Low >=60 [facility] Glucose [Mass/Vol] 96 mg/dL 74-106 [facility] Potassium [Moles/Vol] 4.8 mmol/L 3.5-5.1 [facility] Sodium [Moles/Vol] 143 mmol/L 136-145 [facility] Urea nitrogen [Mass/Vol] 29.0 mg/dL High 7.0-18.0 [facility] Urea nitrogen/Creatinine [Mass ratio] 22.7 mg/mg [facility] Serum or plasma anion gap de terminationon 01-09-2024 Anion gap [Moles/Vol] 12.0 mmol/L [facility] 29on 01-02-2024 29 Addended by: LORENZA DUTTON on: 01/02/2024 09:12 AM Modules accepted: Orders [facility] 36on 01-02-2024 36 Patient LM on our VM confirming she got my message. She will have repeat BMP next week. Order faxed. [facility] 36on 01-01-2024 36 LM for patient timmy flanagan her to return my call. [facility] 36 Regarding BMP from 12/30/2023: MD Lorenza Atkinson MA Please have her decrease lasix to 10 mg daily and repeat BMP in 1 week Thanks Spoke with patient and she is already taking 10mg daily. Is there something else you'd like or should she stay on this dose? Please advise. Thanks. [facility] Telephoneon 01-01-2024 Telephone [id number] Libra Noonan 1950 F Date Provider Department Center 01/01/2024 928-LORENZA DUTTON CARD [facility] Family History Problem Relation Age of Onset Rheumatic fever Mother Heart failure Mother Stroke Mother Other Mother Comments: She is unsure if this was a defibrillator Stroke Father Family Status - Relation Status Age at Mother Father [facility] Estimated glomerular filtrat ion rate (GFR) non- Americanon 12-30-2023 GFR/1.73 sq M.predicted among non-blacks MDRD (S/P/Bld) [Vol rate/Area] 37 mL/min/{1.73_m2} Low >=60 [facility] Laboratory - Chemistry and C hemistry - challengeon 12-30-2023 Calcium [Mass/Vol] 8.7 mg/dL 8.5-10.1 [facility] Chloride [Moles/Vol] 107 mmol/L 98-107 [facility] CO2 [Moles/Vol] 26.9 mmol/L 21.0-32.0 [facility] Creatinine [Mass/Vol] 1.39 mg/dL High 0.55-1.02 [facility] GFR/1.73 sq M.predicted MDRD (S/P/Bld) [Vol rate/Area] 45 mL/min/{1.73_m2} Low >=60 [facility] Glucose [Mass/Vol] 193 mg/dL High 74-106 [facility] Potassium [Moles/Vol] 4.5 mmol/L 3.5-5.1 [facility] Sodium [Moles/Vol] 141 mmol/L 136-145 [facility] Urea nitrogen [Mass/Vol] 32.0 mg/dL High 7.0-18.0 [facility] Urea nitrogen/Creatinine [Mass ratio] 23.0 mg/mg [facility] Serum or plasma anion gap de terminationon 12-30-2023 Anion gap [Moles/Vol] 11.6 mmol/L [facility] 36on 12-16-2023 36 Regarding lab result s [...] 2 weeks. Order faxed to [facility]. Normal [facility] Basophils Auto (Bld) [#/Vol] on 12-09-2023 Basophils (Bld) [#/Vol] 0.0 10 3/uL 0.0-0.1 [facility] Basophils/100 WBC Auto (Bld) on 12-09-2023 Basophils/100 WBC (Bld) 0.4 % 0.2-2.0 [facility] Eosinophils/100 WBC Auto (Bl d)on 12-09-2023 Eosinophils/100 WBC (Bld) 2.7 % 0.9-7.0 [facility] Erythrocyte distribution wid th Auto (RBC) [Ratio]on 12-09-2023 Erythrocyte distribution width (RBC) [Ratio] 12.9 % 11.0-15.0 [facility] Estimated glomerular filtrat ion rate (GFR) non- Americanon 12-09-2023 GFR/1.73 sq M.predicted among non-blacks MDRD (S/P/Bld) [Vol rate/Area] 39 mL/min/{1.73_m2} Low >=60 [facility] Hematocrit Auto (Bld) [Volum e fraction]on 12-09-2023 Hematocrit (Bld) [Volume fraction] 37.7 % 36.0-48.0 [facility] Hemoglobin [Mass/volume] in Bloodon 12-09-2023 Hemoglobin (Bld) [Mass/Vol] 11.8 g/dL Low 12.0-16.0 [facility] Laboratory - Chemistry and C hemistry - challengeon 12-09-2023 Calcium [Mass/Vol] 9.1 mg/dL 8.5-10.1 [facility] Chloride [Moles/Vol] 105 mmol/L 98-107 [facility] CO2 [Moles/Vol] 28.9 mmol/L 21.0-32.0 [facility] Cobalamin (Vitamin B12) [Mass/Vol] 492.0 pg/mL 193.0-986.0 [facility] Creatinine [Mass/Vol] 1.33 mg/dL High 0.55-1.02 [facility] Ferritin [Mass/Vol] 180.0 ng/mL 8.0-252.0 [facility] GFR/1.73 sq M.predicted MDRD (S/P/Bld) [Vol rate/Area] 48 mL/min/{1.73_m2} Low >=60 [facility] Glucose [Mass/Vol] 162 mg/dL High 74-106 [facility] Potassium [Moles/Vol] 4.7 mmol/L 3.5-5.1 [facility] Sodium [Moles/Vol] 138 mmol/L 136-145 [facility] Urea nitrogen [Mass/Vol] 33.0 mg/dL High 7.0-18.0 [facility] Urea nitrogen/Creatinine [Mass ratio] 24.8 mg/mg [facility] Laboratory - Hematology and Cell countson 12-09-2023 Immature granulocytes/100 WBC (Bld) 0.4 % 0.0-0.5 [facility] Leukocytes [#/volume] correc nicholas for nucleated erythrocytes in Blood by Automated counon 12-09-2023 WBC corrected for nucl RBC Auto (Bld) [#/Vol] 9.4 10 3/uL 4.0-11.0 [facility] Lymphocytes Auto (Bld) [#/Vo l]on 12-09-2023 Lymphocytes (Bld) [#/Vol] 2.5 10 3/uL 1.2-3.8 [facility] Lymphocytes/100 WBC Auto (Bl d)on 12-09-2023 Lymphocytes/100 WBC (Bld) 26.3 % 20.5-60.0 [facility] MCH Auto (RBC) [Entitic mass ]on 12-09-2023 MCH (RBC) [Entitic mass] 29.1 pg 26.7-34.0 [facility] MCHC Auto (RBC) [Mass/Vol]on 12-09-2023 MCHC (RBC) [Mass/Vol] 31.3 g/dL 29.9-35.2 [facility] MCV Auto (RBC) [Entitic vol] on 12-09-2023 MCV (RBC) [Entitic vol] 92.9 fL 81.0-99.0 [facility] Monocytes Auto (Bld) [#/Vol] on 12-09-2023 Monocytes (Bld) [#/Vol] 0.5 10 3/uL 0.3-0.8 [facility] Monocytes/100 WBC Auto (Bld) on 12-09-2023 Monocytes/100 WBC (Bld) 5.2 % 1.7-12.0 [facility] Neutrophils Auto (Bld) [#/Vo l]on 12-09-2023 Neutrophils (Bld) [#/Vol] 6.1 10 3/uL 1.4-6.5 [facility] Neutrophils/100 WBC Auto (Bl d)on 12-09-2023 Neutrophils/100 WBC (Bld) 65.0 % 43.0-75.0 [facility] No Panel Informationon 12-08 Eosinophils # (Auto) 0.3 10 3/uL 0.0-0.7 [facility] Folate 21.20 ng/mL 8.60-58.90 [facility] Immature Granulocyte # (Auto) 0.04 10 3/uL High 0.00-0.03 [facility] Platelet mean volume Auto (B ld) [Entitic vol]on 12-09-2023 Platelet mean volume (Bld) [Entitic vol] 10.4 fL 9.5-13.5 [facility] Platelets Auto (Bld) [#/Vol] on 12-09-2023 Platelets (Bld) [#/Vol] 242 10 3/uL 150-450 [facility] RBC Auto (Bld) [#/Vol]on RBC (Bld) [#/Vol] 4.06 10 6/uL Low 4.20-5.40 [facility] Serum or plasma anion gap de terminationon 12-09-2023 Anion gap [Moles/Vol] 8.8 mmol/L [facility] 36on 12-03-2023 36 Regarding lab result s from 11/29/2023: MD Lorenza Atkinson MA Please let her know her s.cr is mildly elevated; would like her to decrease lasix to 10 mg (1/2 a tablet) daily and repeat BMP in 5 days Thanks Spoke with patient and made her aware. BMP sent to [facility]. She will have drawn on Saturday, 12/08. Normal [facility] Estimated glomerular filtrat ion rate (GFR) non- Americanon 11-29-2023 GFR/1.73 sq M.predicted among non-blacks MDRD (S/P/Bld) [Vol rate/Area] 37 mL/min/{1.73_m2} Low >=60 [facility] Laboratory - Chemistry and C hemistry - challengeon 11-29-2023 Calcium [Mass/Vol] 9.0 mg/dL 8.5-10.1 [facility] Chloride [Moles/Vol] 104 mmol/L 98-107 [facility] CO2 [Moles/Vol] 28.5 mmol/L 21.0-32.0 [facility] Creatinine [Mass/Vol] 1.41 mg/dL High 0.55-1.02 [facility] GFR/1.73 sq M.predicted MDRD (S/P/Bld) [Vol rate/Area] 44 mL/min/{1.73_m2} Low >=60 [facility] Glucose [Mass/Vol] 142 mg/dL High 74-106 [facility] Potassium [Moles/Vol] 4.2 mmol/L 3.5-5.1 [facility] Sodium [Moles/Vol] 140 mmol/L 136-145 [facility] Urea nitrogen [Mass/Vol] 31.0 mg/dL High 7.0-18.0 [facility] Urea nitrogen/Creatinine [Mass ratio] 22.0 mg/mg [facility] Serum or plasma anion gap de terminationon 11-29-2023 Anion gap [Moles/Vol] 11.7 mmol/L [facility] Office Visiton 11-25-2023 Follow-up visit [id number] Libra Noonan 1950 F Date Provider Department Center 11/25/2023 Des-PLACIDO TORRES CARD [facility] Family History Problem Relation Age of Onset Rheumatic fever Mother Heart failure Mother Stroke Mother Other Mother Comments: She is unsure if this was a defibrillator Stroke Father Family Status - Relation Status Age at Mother Father Level of Service:48978 SD OFFICE/OUTPATIENT ESTABLISHED MOD MDM 30 MIN Normal [facility] Estimated glomerular filtrat ion rate (GFR) non- Americanon 11-04-2023 GFR/1.73 sq M.predicted among non-blacks MDRD (S/P/Bld) [Vol rate/Area] 28 mL/min/{1.73_m2} Low >=60 [facility] Laboratory - Chemistry and C hemistry - challengeon 11-04-2023 Calcium [Mass/Vol] 9.4 mg/dL 8.5-10.1 [facility] Chloride [Moles/Vol] 101 mmol/L 98-107 [facility] CO2 [Moles/Vol] 26.9 mmol/L 21.0-32.0 [facility] Creatinine [Mass/Vol] 1.79 mg/dL High 0.55-1.02 [facility] GFR/1.73 sq M.predicted MDRD (S/P/Bld) [Vol rate/Area] 34 mL/min/{1.73_m2} Low >=60 [facility] Glucose [Mass/Vol] 191 mg/dL High 74-106 [facility] Potassium [Moles/Vol] 4.0 mmol/L 3.5-5.1 [facility] Sodium [Moles/Vol] 138 mmol/L 136-145 [facility] Urea nitrogen [Mass/Vol] 69.0 mg/dL High 7.0-18.0 [facility] Urea nitrogen/Creatinine [Mass ratio] 38.5 mg/mg [facility] Serum or plasma anion gap de terminationon 11-04-2023 Anion gap [Moles/Vol] 14.1 mmol/L [facility] Basophils Auto (Bld) [#/Vol] on 10-17-2023 Basophils (Bld) [#/Vol] 0.0 10 3/uL 0.0-0.1 [facility] Basophils/100 WBC Auto (Bld) on 10-17-2023 Basophils/100 WBC (Bld) 0.6 % 0.2-2.0 [facility] Cholesterol in LDL Calc [Mas s/Vol]on 10-17-2023 Cholesterol in LDL [Mass/Vol] 44.0 mg/dL [facility] Comment on above: <100 mg/dl [id number] 0-129 mg/dl NEAR OR ABOVE [id number] mg/dl BORDERLINE [id number] mg/dl HIGH>190 mg/dl VERY HIGH Cholesterol in VLDL Calc [Ma ss/Vol]on 10-17-2023 Cholesterol in VLDL [Mass/Vol] 13.6 mg/dL [facility] Eosinophils/100 WBC Auto (Bl d)on 10-17-2023 Eosinophils/100 WBC (Bld) 1.4 % 0.9-7.0 [facility] Erythrocyte distribution wid th Auto (RBC) [Ratio]on 10-17-2023 Erythrocyte distribution width (RBC) [Ratio] 12.0 % 11.0-15.0 [facility] Estimated glomerular filtrat ion rate (GFR) non- Americanon 10-17-2023 GFR/1.73 sq M.predicted among non-blacks MDRD (S/P/Bld) [Vol rate/Area] 42 mL/min/{1.73_m2} Low >=60 [facility] Globulin Calc (S) [Mass/Vol] on 10-17-2023 Globulin (S) [Mass/Vol] 3.6 g/dL [facility] Glucose mean value [Mass/vol ume] in Blood Estimated from glycated hemoglobinon 10-17-2023 Average glucose Estimated from glycated hemoglobin (Bld) [Mass/Vol] 177 mg/dL [facility] Hematocrit Auto (Bld) [Volum e fraction]on 10-17-2023 Hematocrit (Bld) [Volume fraction] 35.3 % Low 36.0-48.0 [facility] Hemoglobin [Mass/volume] in Bloodon 10-17-2023 Hemoglobin (Bld) [Mass/Vol] 11.1 g/dL Low 12.0-16.0 [facility] Laboratory - Chemistry and C hemistry - challengeon 10-17-2023 Albumin [Mass/Vol] 3.6 g/dL 3.4-5.0 [facility] ALP [Catalytic activity/Vol] 105 U/L 46-116 [facility] ALT [Catalytic activity/Vol] 30 U/L 14-59 [facility] AST [Catalytic activity/Vol] 17 U/L 15-37 [facility] Bilirubin [Mass/Vol] 0.5 mg/dL 0.2-1.0 [facility] Calcium [Mass/Vol] 9.4 mg/dL 8.5-10.1 [facility] Chloride [Moles/Vol] 105 mmol/L 98-107 [facility] Cholesterol [Mass/Vol] 122 mg/dL <=200 [facility] Cholesterol in HDL [Mass/Vol] 65 mg/dL High 40-60 [facility] Comment on above: > or =60 mg/dl - LOW CARDIOVASCULAR RISK<40 mg/dl - HIGH CARDIOVASCULAR RISK CO2 [Moles/Vol] 26.7 mmol/L 21.0-32.0 [facility] Creatinine [Mass/Vol] 1.25 mg/dL High 0.55-1.02 [facility] GFR/1.73 sq M.predicted MDRD (S/P/Bld) [Vol rate/Area] 51 mL/min/{1.73_m2} Low >=60 [facility] Glucose [Mass/Vol] 212 mg/dL High 74-106 [facility] Potassium [Moles/Vol] 4.7 mmol/L 3.5-5.1 [facility] Protein [Mass/Vol] 7.2 g/dL 6.4-8.2 [facility] Sodium [Moles/Vol] 141 mmol/L 136-145 [facility] Triglyceride [Mass/Vol] 68 mg/dL <=150 [facility] TSH Qn 2.291 m[IU]/L 0.358-3.740 [facility] Urea nitrogen [Mass/Vol] 30.0 mg/dL High 7.0-18.0 [facility] Urea nitrogen/Creatinine [Mass ratio] 24.0 mg/mg [facility] Laboratory - Hematology and Cell countson 10-17-2023 HbA1c (Bld) [Mass fraction] 7.8 % High 4.5-6.2 [facility] Comment on above: ADA RECOMMENDED LIMI T 4.0 - 6.0ADA THERAPEUTIC TARGET < 7.0ACTION SUGGESTED> 7.0 Immature granulocytes/100 WBC (Bld) 0.3 % 0.0-0.5 [facility] Leukocytes [#/volume] correc nicholas for nucleated erythrocytes in Blood by Automated counon 10-17-2023 WBC corrected for nucl RBC Auto (Bld) [#/Vol] 7.2 10 3/uL 4.0-11.0 [facility] Lymphocytes Auto (Bld) [#/Vo l]on 10-17-2023 Lymphocytes (Bld) [#/Vol] 2.1 10 3/uL 1.2-3.8 [facility] Lymphocytes/100 WBC Auto (Bl d)on 10-17-2023 Lymphocytes/100 WBC (Bld) 29.8 % 20.5-60.0 [facility] MCH Auto (RBC) [Entitic mass ]on 10-17-2023 MCH (RBC) [Entitic mass] 29.7 pg 26.7-34.0 [facility] MCHC Auto (RBC) [Mass/Vol]on 10-17-2023 MCHC (RBC) [Mass/Vol] 31.4 g/dL 29.9-35.2 [facility] MCV Auto (RBC) [Entitic vol] on 10-17-2023 MCV (RBC) [Entitic vol] 94.4 fL 81.0-99.0 [facility] Monocytes Auto (Bld) [#/Vol] on 10-17-2023 Monocytes (Bld) [#/Vol] 0.4 10 3/uL 0.3-0.8 [facility] Monocytes/100 WBC Auto (Bld) on 10-17-2023 Monocytes/100 WBC (Bld) 6.1 % 1.7-12.0 [facility] Neutrophils Auto (Bld) [#/Vo l]on 10-17-2023 Neutrophils (Bld) [#/Vol] 4.5 10 3/uL 1.4-6.5 [facility] Neutrophils/100 WBC Auto (Bl d)on 10-17-2023 Neutrophils/100 WBC (Bld) 61.8 % 43.0-75.0 [facility] No Panel Informationon 10-16 Eosinophils # (Auto) 0.1 10 3/uL 0.0-0.7 [facility] Immature Granulocyte # (Auto) 0.02 10 3/uL 0.00-0.03 [facility] Platelet mean volume Auto (B ld) [Entitic vol]on 10-17-2023 Platelet mean volume (Bld) [Entitic vol] 10.9 fL 9.5-13.5 [facility] Platelets Auto (Bld) [#/Vol] on 10-17-2023 Platelets (Bld) [#/Vol] 214 10 3/uL 150-450 [facility] RBC Auto (Bld) [#/Vol]on RBC (Bld) [#/Vol] 3.74 10 6/uL Low 4.20-5.40 [facility] Serum or plasma albumin/glob ulin mass ratioon 10-17-2023 Albumin/Globulin [Mass ratio] 1.0 {ratio} [facility] Serum or plasma anion gap de terminationon 10-17-2023 Anion gap [Moles/Vol] 14.0 mmol/L [facility] Serum or plasma total choles terol/high density lipoprotein (HDL) cholesterol mass helen 10-17-2023 Cholesterol.total/C holesterol in HDL [Mass ratio] 1.9 {ratio} [facility] Comment on above: 3.3 - 4.4 LOW RISK4. 4 - 7.1 AVERAGE RISK7.1 - 11.0 MODERATE RISK>11.0 HIGH RISK Basophils Auto (Bld) [#/Vol] on 08-16-2023 Basophils (Bld) [#/Vol] 0.1 10 3/uL 0.0-0.1 [facility] Basophils/100 WBC Auto (Bld) on 08-16-2023 Basophils/100 WBC (Bld) 0.9 % 0.2-2.0 [facility] Eosinophils/100 WBC Auto (Bl d)on 08-16-2023 Eosinophils/100 WBC (Bld) 6.5 % 0.9-7.0 [facility] Erythrocyte distribution wid th Auto (RBC) [Ratio]on 08-16-2023 Erythrocyte distribution width (RBC) [Ratio] 12.3 % 11.0-15.0 [facility] Estimated glomerular filtrat ion rate (GFR) non- Americanon 08-16-2023 GFR/1.73 sq M.predicted among non-blacks MDRD (S/P/Bld) [Vol rate/Area] 44 mL/min/{1.73_m2} >=60 [facility] Fibrin D-dimer [Presence] in Platelet poor plasma by Latex agglutinationon 08-16-2023 Fibrin D-dimer LA Ql (PPP) 0.72 mg/L FEU <=0.59 [facility] Comment on above: RESULTS CALLED TO DR [...] on 08-16-2023 Globulin (S) [Mass/Vol] 3.7 g/dL [facility] Hematocrit Auto (Bld) [Volum e fraction]on 08-16-2023 Hematocrit (Bld) [Volume fraction] 36.1 % 36.0-48.0 [facility] Hemoglobin [Mass/volume] in Bloodon 08-16-2023 Hemoglobin (Bld) [Mass/Vol] 11.6 g/dL 12.0-16.0 [facility] Laboratory - Chemistry and C hemistry - challengeon 08-16-2023 Albumin [Mass/Vol] 3.1 g/dL 3.4-5.0 [facility] ALP [Catalytic activity/Vol] 100 U/L 46-116 [facility] ALT [Catalytic activity/Vol] 22 U/L 14-59 [facility] AST [Catalytic activity/Vol] 17 U/L 15-37 [facility] Bilirubin [Mass/Vol] 0.6 mg/dL 0.2-1.0 [facility] Calcium [Mass/Vol] 9.1 mg/dL 8.5-10.1 [facility] Chloride [Moles/Vol] 106 mmol/L 98-107 [facility] CO2 [Moles/Vol] 28.5 mmol/L 21.0-32.0 [facility] Creatinine [Mass/Vol] 1.21 mg/dL 0.55-1.02 [facility] GFR/1.73 sq M.predicted MDRD (S/P/Bld) [Vol rate/Area] 53 mL/min/{1.73_m2} >=60 [facility] Glucose [Mass/Vol] 214 mg/dL 74-106 [facility] Lipase [Catalytic activity/Vol] 15.0 U/L 16.0-77.0 [facility] Natriuretic peptide B (Bld) [Mass/Vol] 447.0 pg/mL <=900.0 [facility] Potassium [Moles/Vol] 4.3 mmol/L 3.5-5.1 [facility] Protein [Mass/Vol] 6.8 g/dL 6.4-8.2 [facility] Sodium [Moles/Vol] 144 mmol/L 136-145 [facility] Urea nitrogen [Mass/Vol] 23.0 mg/dL 7.0-18.0 [facility] Urea nitrogen/Creatinine [Mass ratio] 19.0 mg/mg [facility] Laboratory - Hematology and Cell countson 08-16-2023 Immature granulocytes/100 WBC (Bld) 0.3 % 0.0-0.5 [facility] Leukocytes [#/volume] correc nicholas for nucleated erythrocytes in Blood by Automated counon 08-16-2023 WBC corrected for nucl RBC Auto (Bld) [#/Vol] 7.0 10 3/uL 4.0-11.0 [facility] Lymphocytes Auto (Bld) [#/Vo l]on 08-16-2023 Lymphocytes (Bld) [#/Vol] 1.7 10 3/uL 1.2-3.8 [facility] Lymphocytes/100 WBC Auto (Bl d)on 08-16-2023 Lymphocytes/100 WBC (Bld) 24.4 % 20.5-60.0 [facility] MCH Auto (RBC) [Entitic mass ]on 08-16-2023 MCH (RBC) [Entitic mass] 30.6 pg 26.7-34.0 [facility] MCHC Auto (RBC) [Mass/Vol]on 08-16-2023 MCHC (RBC) [Mass/Vol] 32.1 g/dL 29.9-35.2 [facility] MCV Auto (RBC) [Entitic vol] on 08-16-2023 MCV (RBC) [Entitic vol] 95.3 fL 81.0-99.0 [facility] Monocytes Auto (Bld) [#/Vol] on 08-16-2023 Monocytes (Bld) [#/Vol] 0.4 10 3/uL 0.3-0.8 [facility] Monocytes/100 WBC Auto (Bld) on 08-16-2023 Monocytes/100 WBC (Bld) 6.3 % 1.7-12.0 [facility] Neutrophils Auto (Bld) [#/Vo l]on 08-16-2023 Neutrophils (Bld) [#/Vol] 4.3 10 3/uL 1.4-6.5 [facility] Neutrophils/100 WBC Auto (Bl d)on 08-16-2023 Neutrophils/100 WBC (Bld) 61.6 % 43.0-75.0 [facility] No Panel Informationon 08-16 Eosinophils # (Auto) 0.5 10 3/uL 0.0-0.7 [facility] Immature Granulocyte # (Auto) 0.02 10 3/uL 0.00-0.03 [facility] Troponin I High Sensitivity 12.0 pg/mL 4.0-51.3 [facility] Comment on above: CUT-OFF POINTS HAVE BEEN [...] volume (Bld) [Entitic vol] 10.3 fL 9.5-13.5 [facility] Platelets Auto (Bld) [#/Vol] on 08-16-2023 Platelets (Bld) [#/Vol] 214 10 3/uL 150-450 [facility] RBC Auto (Bld) [#/Vol]on RBC (Bld) [#/Vol] 3.79 10 6/uL 4.20-5.40 [facility] Serum or plasma albumin/glob ulin mass ratioon 08-16-2023 Albumin/Globulin [Mass ratio] 0.8 {ratio} [facility] Serum or plasma anion gap de terminationon 08-16-2023 Anion gap [Moles/Vol] 13.8 mmol/L [facility] CBC AUTO DIFFon 11-06-2022 BASO # 0.0 103/ul Normal 0.0-0.1 [facility] Comment on above: Performed By: #### C BC #### [facility] [address] [address] [address] Dylan Santana Basophils/100 WBC (Bld) 0.2 % Normal 0.2-2.0 [facility] Comment on above: Performed By: #### C BC #### [facility] [address] [address] [address] Dylan Santana EO # 0.0 103/ul Normal 0.0-0.7 [facility] Comment on above: Performed By: #### C BC #### [facility] [address] [address] [address] Dylan Santana Eosinophils/100 WBC (Bld) 0.2 % Critically low 0.9-7.0 [facility] Comment on above: Performed By: #### C BC #### [facility] [address] [address] [address] Dylan Santana Erythrocyte distribution width (RBC) [Ratio] 12.1 % Normal 11.0-15.0 [facility] Comment on above: Performed By: #### C BC #### [facility] [address] [place] [address] Dr. Dylan Santana Hematocrit (Bld) [Volume fraction] 42.7 % Normal 36.0-48.0 [facility] Comment on above: Performed By: #### C BC #### [facility] [address] [address] [address] Dylan Santana Hemoglobin (Bld) [Mass/Vol] 13.9 g/dL Normal 12.0-16.0 [facility] Comment on above: Performed By: #### C BC #### [facility] [address] [place] [address] Dr. Dylan Santana IG # 0.05 10e3/ul Critically high 0.00-0.03 [facility] Comment on above: Performed By: #### C BC #### [facility] [address] [place] [address] Dr. Dylan Santana IG % 0.5 % Normal 0.0-0.5 [facility] Comment on above: Performed By: #### C BC #### [facility] [address] [place] [address] Dr. Dylan Santana LYMPH # 2.1 103/ul Normal 1.2-3.8 [facility] Comment on above: Performed By: #### C BC #### [facility] [address] [place] [address] Dr. Dylan Santana Lymphocytes/100 WBC (Bld) 20.8 % Normal 20.5-60.0 [facility] Comment on above: Performed By: #### C BC #### [facility] [address] [place] [address] Dr. Dylan Santana MANUAL DIFF REQ NO Normal [facility] Comment on above: Performed By: #### C BC #### [facility] [address] [place] [address] Dr. Dylan Santana MCH (RBC) [Entitic mass] 30.1 pg Normal 26.7-34.0 [facility] Comment on above: Performed By: #### C BC #### [facility] [address] [place] [address] Dr. Dylan Santana MCHC (RBC) [Mass/Vol] 32.6 g/dL Normal 29.9-35.2 [facility] Comment on above: Performed By: #### C BC #### [facility] [address] [place] [address] Dr. Dylan Santana MCV (RBC) [Entitic vol] 92.4 fL Normal 81.0-99.0 [facility] Comment on above: Performed By: #### C BC #### [facility] [address] [address] [address] Dylan Santana MONO # 0.4 103/ul Normal 0.3-0.8 [facility] Comment on above: Performed By: #### C BC #### [facility] [address] [address] [address] Dylan Santana Monocytes/100 WBC (Bld) 3.8 % Normal 1.7-12.0 [facility] Comment on above: Performed By: #### C BC #### [facility] [address] [address] [address] Dylan Santana NEUT # 7.6 103/ul Critically high 1.4-6.5 [facility] Comment on above: Performed By: #### C BC #### [facility] [address] [place] [address] Dr. Dylan Santana Neutrophils/100 WBC (Bld) 74.5 % Normal 43.0-75.0 [facility] Comment on above: Performed By: #### C BC #### [facility] [address] [address] [address] Dylan Santana Platelet mean volume (Bld) [Entitic vol] 10.4 fL Normal 9.5-13.5 [facility] Comment on above: Performed By: #### C BC #### [facility] [address] [place] [address] Dr. Dylan Santana PLT 228 103/ul Normal 150-450 [facility] Comment on above: Performed By: #### C BC #### [facility] [address] [address] [address] Dylan Santana RBC 4.62 106/ul Normal 4.20-5.40 [facility] Comment on above: Performed By: #### C BC #### [facility] [address] [address] [address] Dylan Santana WBC 10.2 103/ul Normal 4.0-11.0 [facility] Comment on above: Performed By: #### C BC #### [facility] [address] [place] [address] Dr. Dylan Santana GLYCOHEMOGLOBIN A1Con 2022 ADA RECOMMENDATION SEE BELOW Normal [facility] Comment on above: Result Comment: ADA RECOMMENDED LIMIT 4.0 - 6.0 ADA THERAPEUTIC TARGET < 7.0 ACTION SUGGESTED > 7.0 Performed By: #### A 1C #### [facility] [address] [address] [address] Dylan Santana Glucose [Mass/Vol] 214 mg/dL Normal [facility] Comment on above: Performed By: #### A 1C #### [facility] [address] [place] [address] Dr. Dylan Santana HbA1c (Bld) [Mass fraction] 9.1 % Critically high 4.5-6.2 [facility] Comment on above: Performed By: #### A 1C #### [facility] [address] [place] [address] Dr. Dylan Santana LIPID PROFILEon 11-06-2022 CHOL-HDL RATIO NORM SEE BELOW Normal [facility] Comment on above: Result Comment: 3.3 - 4.4 LOW RISK 4.4 - 7.1 AVERAGE RISK 7.1 - 11.0 MODERATE RISK >11.0 HIGH RISK Performed By: #### L IPID #### [facility] [address] [place] [address] Dr. Dylan Santana Cholesterol [Mass/Vol] 142 mg/dL Normal <=200 [facility] Comment on above: Performed By: #### L IPID #### [facility] [address] [place] [address] Dr. Dylan Santana Cholesterol in HDL [Mass/Vol] 74 mg/dL Critically high 40-60 [facility] Comment on above: Performed By: #### L IPID #### [facility] [address] [place] [address] Dr. Dylan Santana Cholesterol in LDL [Mass/Vol] 49.4 mg/dL Normal [facility] Comment on above: Performed By: #### L IPID #### [facility] [address] [place] [address] Dr. Dylan Santana Cholesterol.total/C holesterol in HDL [Mass ratio] 1.9 {ratio} Normal [facility] Comment on above: Performed By: #### L IPID #### [facility] [address] [address] [address] Dylan Santana HDL NORMAL > or = 60 mg/dl - LO W CARDIOVASCULAR RISK <40 mg/dl - HIGH CARDIOVASCULAR RISK Normal [facility] Comment on above: Performed By: #### L IPID #### [facility] [address] [address] [address] Dylan Santana LDL CALC NORMAL SEE BELOW Normal [facility] Comment on above: Result Comment: <100 mg/dl OPTIMAL 100 - 129 mg/dl NEAR OR ABOVE OPTIMAL 130 - 159 mg/dl BORDERLINE HIGH 160 - 189 mg/dl HIGH >190 mg/dl VERY HIGH Performed By: #### L IPID #### [facility] [address] [address] [address] Dylan Santana Triglyceride [Mass/Vol] 93 mg/dL Normal <=150 [facility] Comment on above: Performed By: #### L IPID #### [facility] [address] [address] [address] Dylan Santana VLDL CALC 18.6 mg/dL Normal [facility] Comment on above: Performed By: #### L IPID #### [facility] [address] [address] [address] Dylan Santana PROF CHEM 8 (BAS METB)on Anion gap [Moles/Vol] 12.8 mmol/L Normal [facility] Comment on above: Performed By: #### C BC #### [facility] [address] [address] [address] Dylan Santana Calcium [Mass/Vol] 9.5 mg/dL Normal 8.5-10.1 [facility] Comment on above: Performed By: #### C BC #### [facility] [address] [address] [address] Dylan Santana Chloride [Moles/Vol] 105 mmol/L Normal 98-107 [facility] Comment on above: Performed By: #### C BC #### [facility] [address] [address] [address] Dylan Santana CO2 [Moles/Vol] 28.1 mmol/L Normal 21.0-32.0 [facility] Comment on above: Performed By: #### C BC #### [facility] [address] [address] [address] Dylan Santana Creatinine [Mass/Vol] 1.29 mg/dL Critically high 0.55-1.02 [facility] Comment on above: Performed By: #### C BC #### [facility] [address] [address] [address] Dylan Santana EGFR-AF INDIAN 49 mL/min/1.73m2 Critically low >=60 [facility] Comment on above: Performed By: #### C BC #### [facility] [address] [address] [address] Dylan Santana EGFR-NON AF INDIAN 41 mL/min/1.73m2 Critically low >=60 [facility] Comment on above: Performed By: #### C BC #### [facility] [address] [address] [address] Dylan Santana Glucose [Mass/Vol] 290 mg/dL Critically high 74-[address] [facility] Comment on above: Performed By: #### C BC #### [facility] [address] [address] [address] Dylan Santana Potassium [Moles/Vol] 4.9 mmol/L Normal 3.5-5.1 [facility] Comment on above: Performed By: #### C BC #### [facility] [address] [address] [address] Dylan Santana Sodium [Moles/Vol] 141 mmol/L Normal 136-145 [facility] Comment on above: Performed By: #### C BC #### [facility] [address] [address] [address] Dylan Santana Urea nitrogen [Mass/Vol] 30.0 mg/dL Critically high 7.0-18.0 [facility] Comment on above: Performed By: #### C BC #### [facility] [address] [address] [address] Dylan Santana Urea nitrogen/Creatinine [Mass ratio] 23.3 mg/mg Normal [facility] Comment on above: Performed By: #### C BC #### [facility] [address] [place] [address] Dr. Dylan Santana XR SHOULDER LT 2V [...] MARIE TINEO Date: 2022-07-26 16:54 Normal [facility] XR CHEST 2 Von 06-19-2022 XR CHEST [...] WEI REED Date: 2022-06-19 18:36 Normal [facility] BNPon 06-10-2022 Natriuretic peptide B (Bld) [Mass/Vol] 683.0 pg/mL Normal <=900.0 [facility] Comment on above: Performed By: #### L IPID, TSH, CMP #### [facility] [address] [place] [address] Dr. Dylan Santana CBC AUTO DIFFon 06-10-2022 BASO # 0.0 103/ul Normal 0.0-0.1 [facility] Comment on above: Performed By: #### C BC #### [facility] [address] [place] [address] Dr. Dylan Santana Basophils/100 WBC (Bld) 0.6 % Normal 0.2-2.0 [facility] Comment on above: Performed By: #### C BC #### [facility] [address] [place] [address] Dr. Dylan Santana EO # 0.3 103/ul Normal 0.0-0.7 [facility] Comment on above: Performed By: #### C BC #### [facility] [address] [place] [address] Dr. Dylan Santana Eosinophils/100 WBC (Bld) 4.9 % Normal 0.9-7.0 [facility] Comment on above: Performed By: #### C BC #### [facility] [address] [place] [address] Dr. Dylan Santana Erythrocyte distribution width (RBC) [Ratio] 12.2 % Normal 11.0-15.0 [facility] Comment on above: Performed By: #### C BC #### [facility] [address] [place] [address] Dr. Dylan Santana Hematocrit (Bld) [Volume fraction] 36.2 % Normal 36.0-48.0 [facility] Comment on above: Performed By: #### C BC #### [facility] [address] [place] [address] Dr. Dylan Santana Hemoglobin (Bld) [Mass/Vol] 11.9 g/dL Critically low 12.0-16.0 [facility] Comment on above: Performed By: #### C BC #### [facility] [address] [place] [address] Dr. Dylan Santana IG # 0.02 10e3/ul Normal 0.00-0.03 [facility] Comment on above: Performed By: #### C BC #### [facility] [address] [place] [address] Dr. Dylan Santana IG % 0.4 % Normal 0.0-0.5 [facility] Comment on above: Performed By: #### C BC #### [facility] [address] [place] [address] Dr. Dylan Santana LYMPH # 1.8 103/ul Normal 1.2-3.8 [facility] Comment on above: Performed By: #### C BC #### [facility] [address] [place] [address] Dr. Dylan Santana Lymphocytes/100 WBC (Bld) 34.8 % Normal 20.5-60.0 [facility] Comment on above: Performed By: #### C BC #### [facility] [address] [place] [address] Dr. Dylan Santana MANUAL DIFF REQ NO Normal [facility] Comment on above: Performed By: #### C BC #### [facility] [address] [place] [address] Dr. Dylan Santana MCH (RBC) [Entitic mass] 30.2 pg Normal 26.7-34.0 [facility] Comment on above: Performed By: #### C BC #### [facility] [address] [place] [address] Dr. Dylan Santana MCHC (RBC) [Mass/Vol] 32.9 g/dL Normal 29.9-35.2 [facility] Comment on above: Performed By: #### C BC #### [facility] [address] [place] [address] Dr. Dylan Santana MCV (RBC) [Entitic vol] 91.9 fL Normal 81.0-99.0 [facility] Comment on above: Performed By: #### C BC #### [facility] [address] [place] [address] Dr. Dylan Santana MONO # 0.6 103/ul Normal 0.3-0.8 [facility] Comment on above: Performed By: #### C BC #### [facility] [address] [place] [address] Dr. Dylan Santana Monocytes/100 WBC (Bld) 12.5 % Critically high 1.7-12.0 [facility] Comment on above: Performed By: #### C BC #### [facility] [address] [place] [address] Dr. Dylan Santana NEUT # 2.4 103/ul Normal 1.4-6.5 [facility] Comment on above: Performed By: #### C BC #### [facility] [address] [place] [address] Dr. Dylan Santana Neutrophils/100 WBC (Bld) 46.8 % Normal 43.0-75.0 [facility] Comment on above: Performed By: #### C BC #### [facility] [address] [place] [address] Dr. Dylan Santana Platelet mean volume (Bld) [Entitic vol] 10.1 fL Normal 9.5-13.5 [facility] Comment on above: Performed By: #### C BC #### [facility] [address] [place] [address] Dr. Dylan Santana PLT 159 103/ul Normal 150-450 [facility] Comment on above: Performed By: #### C BC #### [facility] [address] [place] [address] Dr. Dylan Santana RBC 3.94 106/ul Critically low 4.20-5.40 [facility] Comment on above: Performed By: #### C BC #### [facility] [address] [place] [address] Dr. Dylan Santana WBC 5.1 103/ul Normal 4.0-11.0 [facility] Comment on above: Performed By: #### C BC #### [facility] [address] [place] [address] Dr. Dylan Santana BASO # 0.0 103/ul Normal 0.0-0.1 [facility] Comment on above: Performed By: #### C BC #### [facility] [address] [place] [address] Dr. Dylan Santana Basophils/100 WBC (Bld) 0.6 % Normal 0.2-2.0 [facility] Comment on above: Performed By: #### C BC #### [facility] [address] [place] [address] Dr. Dylan Santana EO # 0.3 103/ul Normal 0.0-0.7 [facility] Comment on above: Performed By: #### C BC #### [facility] [address] [place] [address] Dr. Dylan Santana Eosinophils/100 WBC (Bld) 5.0 % Normal 0.9-7.0 [facility] Comment on above: Performed By: #### C BC #### [facility] [address] [place] [address] Dr. Dylan Santana Erythrocyte distribution width (RBC) [Ratio] 12.1 % Normal 11.0-15.0 [facility] Comment on above: Performed By: #### C BC #### [facility] [address] [place] [address] Dr. Dylan Santana Hematocrit (Bld) [Volume fraction] 39.3 % Normal 36.0-48.0 [facility] Comment on above: Performed By: #### C BC #### [facility] [address] [place] [address] Dr. Dylan Santana Hemoglobin (Bld) [Mass/Vol] 12.9 g/dL Normal 12.0-16.0 [facility] Comment on above: Performed By: #### C BC #### [facility] [address] [place] [address] Dr. Dylan Santana IG # 0.02 10e3/ul Normal 0.00-0.03 [facility] Comment on above: Performed By: #### C BC #### [facility] [address] [place] [address] Dr. Dylan Santana IG % 0.4 % Normal 0.0-0.5 [facility] Comment on above: Performed By: #### C BC #### [facility] [address] [place] [address] Dr. Dylan Santana LYMPH # 1.4 103/ul Normal 1.2-3.8 [facility] Comment on above: Performed By: #### C BC #### [facility] [address] [place] [address] Dr. Dylan Santana Lymphocytes/100 WBC (Bld) 26.9 % Normal 20.5-60.0 [facility] Comment on above: Performed By: #### C BC #### [facility] [address] [place] [address] Dr. Dylan Santana MANUAL DIFF REQ NO Normal [facility] Comment on above: Performed By: #### C BC #### [facility] [address] [place] [address] Dr. Dylan Santana MCH (RBC) [Entitic mass] 30.2 pg Normal 26.7-34.0 [facility] Comment on above: Performed By: #### C BC #### [facility] [address] [place] [address] Dr. Dylan Santana MCHC (RBC) [Mass/Vol] 32.8 g/dL Normal 29.9-35.2 [facility] Comment on above: Performed By: #### C BC #### [facility] [address] [place] [address] Dr. Dylan Santana MCV (RBC) [Entitic vol] 92.0 fL Normal 81.0-99.0 [facility] Comment on above: Performed By: #### C BC #### [facility] [address] [place] [address] Dr. Dylan Santana MONO # 0.5 103/ul Normal 0.3-0.8 [facility] Comment on above: Performed By: #### C BC #### [facility] [address] [place] [address] Dr. Dylan Santana Monocytes/100 WBC (Bld) 10.1 % Normal 1.7-12.0 [facility] Comment on above: Performed By: #### C BC #### [facility] [address] [place] [address] Dr. Dylan Santana NEUT # 3.0 103/ul Normal 1.4-6.5 [facility] Comment on above: Performed By: #### C BC #### [facility] [address] [place] [address] Dr. Dylan Santana Neutrophils/100 WBC (Bld) 57.0 % Normal 43.0-75.0 [facility] Comment on above: Performed By: #### C BC #### [facility] [address] [address] [address] Dylan Santana Platelet mean volume (Bld) [Entitic vol] 10.3 fL Normal 9.5-13.5 [facility] Comment on above: Performed By: #### C BC #### [facility] [address] [address] [address] Dylan Santana PLT 182 103/ul Normal 150-450 [facility] Comment on above: Performed By: #### C BC #### [facility] [address] [address] [address] Dylan Santana RBC 4.27 106/ul Normal 4.20-5.40 [facility] Comment on above: Performed By: #### C BC #### [facility] [address] [address] [address] Dylan Santana WBC 5.2 103/ul Normal 4.0-11.0 [facility] Comment on above: Performed By: #### C BC #### [facility] [address] [address] [address] HEAD WO CONon [...] YONIS PACHECO Date: 2022-06-10 04:35 Normal [facility] Covid-19 PCR (CVDTB)on 05-24 SARS-CoV-2 (COVID-19) RNA LUIS+probe Ql (Unsp spec) Not detected Normal NOT DETECTED [facility] Comment on above: Result Comment: When diagnostic [...] for this test is supported by the [place] of Health and Human Service's declaration that [...] By: #### L IPID, TSH, CMP #### [facility] [address] [address] [address] Dylan Santana POINT OF CARE GLUCOSEon 05-24 Glucose [Mass/Vol] 169 mg/dL Critically high 74-[address] [facility] Comment on above: Performed By: #### C BC #### [facility] [address] [address] [address] Dylan Santana PROF 14(COMP METB)on 022 Albumin [Mass/Vol] 3.5 g/dL Normal 3.4-5.0 [facility] Comment on above: Performed By: #### C MP, HSTROPN #### [facility] [address] [address] [address] Dylan Santana Albumin/Globulin [Mass ratio] 0.9 {ratio} Normal [facility] Comment on above: Performed By: #### C RAUL, HSTROPN #### [facility] [address] [place] [address] Dr. Dylan Santana ALP [Catalytic activity/Vol] 197 U/L Critically high 46-116 [facility] Comment on above: Performed By: #### C RAUL, HSTROPN #### [facility] [address] [address] [address] Dylan Santana ALT [Catalytic activity/Vol] 89 U/L Critically high 14-59 [facility] Comment on above: Performed By: #### C RAUL, HSTROPN #### [facility] [address] [place] [address] Dr. Dylan Santana Anion gap [Moles/Vol] 10.1 mmol/L Normal [facility] Comment on above: Performed By: #### C RAUL, HSTROPN #### [facility] [address] [place] [address] Dr. Dylan Santana AST [Catalytic activity/Vol] 50 U/L Critically high 15-37 [facility] Comment on above: Performed By: #### C RAUL, HSTROPN #### [facility] [address] [place] [address] Dr. Dylan Santana Bilirubin [Mass/Vol] 0.4 mg/dL Normal 0.2-1.0 [facility] Comment on above: Performed By: #### C RAUL, HSTROPN #### [facility] [address] [place] [address] Dr. Dylan Santana Calcium [Mass/Vol] 9.2 mg/dL Normal 8.5-10.1 [facility] Comment on above: Performed By: #### C RAUL, HSTROPN #### [facility] [address] [place] [address] Dr. Dylan Santana Chloride [Moles/Vol] 101 mmol/L Normal 98-107 [facility] Comment on above: Performed By: #### C RAUL, HSTROPN #### [facility] [address] [address] [address] Dylan Santana CO2 [Moles/Vol] 28.1 mmol/L Normal 21.0-32.0 [facility] Comment on above: Performed By: #### C MP, HSTROPN #### [facility] [address] [address] [address] Dylan Santana Creatinine [Mass/Vol] 1.29 mg/dL Critically high 0.55-1.02 [facility] Comment on above: Performed By: #### C MP, HSTROPN #### [facility] [address] [address] [address] Dylan Santana EGFR-AF INDIAN 49 mL/min/1.73m2 Critically low >=60 [facility] Comment on above: Performed By: #### C MP, HSTROPN #### [facility] [address] [place] [address] Dr. Dylan Santana EGFR-NON AF INDIAN 41 mL/min/1.73m2 Critically low >=60 [facility] Comment on above: Performed By: #### C MP, HSTROPN #### [facility] [address] [address] [address] Dylan Santana Globulin (S) [Mass/Vol] 3.9 g/dL Normal [facility] Comment on above: Performed By: #### C MP, HSTROPN #### [facility] [address] [address] [address] Dylan Santana Glucose [Mass/Vol] 231 mg/dL Critically high 74-106 [facility] Comment on above: Performed By: #### C MP, HSTROPN #### [facility] [address] [address] [address] Dylan Santana Potassium [Moles/Vol] 4.2 mmol/L Normal 3.5-5.1 [facility] Comment on above: Performed By: #### C MP, HSTROPN #### [facility] [address] [address] [address] Dylan Santana Protein [Mass/Vol] 7.4 g/dL Normal 6.4-8.2 [facility] Comment on above: Performed By: #### C MP, HSTROPN #### [facility] [address] [place] [address] Dr. Dylan Santana Sodium [Moles/Vol] 135 mmol/L Critically low 136-145 [facility] Comment on above: Performed By: #### C MP, HSTROPN #### [facility] [address] [place] [address] Dr. Dylan Santana Urea nitrogen [Mass/Vol] 21.0 mg/dL Critically high 7.0-18.0 [facility] Comment on above: Performed By: #### C MP, HSTROPN #### [facility] [address] [place] [address] Dr. Dylan Santana Urea nitrogen/Creatinine [Mass ratio] 16.3 mg/mg Normal [facility] Comment on above: Performed By: #### C MP, HSTROPN #### [facility] [address] [place] [address] Dr. Dylan Santana PROF CHEM 8 (BAS METB)on Anion gap [Moles/Vol] 9.2 mmol/L Normal [facility] Comment on above: Performed By: #### L IPID, TSH, CMP #### [facility] [address] [place] [address] Dr. Dylan Santana Calcium [Mass/Vol] 8.9 mg/dL Normal 8.5-10.1 [facility] Comment on above: Performed By: #### L IPID, TSH, CMP #### [facility] [address] [place] [address] Dr. Dylan Santana Chloride [Moles/Vol] 104 mmol/L Normal 98-107 [facility] Comment on above: Performed By: #### L IPID, TSH, CMP #### [facility] [address] [place] [address] Dr. Dylan Santana CO2 [Moles/Vol] 27.8 mmol/L Normal 21.0-32.0 [facility] Comment on above: Performed By: #### L IPID, TSH, CMP #### [facility] [address] [address] [address] Dylan Santana Creatinine [Mass/Vol] 1.14 mg/dL Critically high 0.55-1.02 [facility] Comment on above: Performed By: #### L IPID, TSH, CMP #### [facility] [address] [place] [address] Dr. Dylan Santana EGFR-AF INDIAN 57 mL/min/1.73m2 Critically low >=60 [facility] Comment on above: Performed By: #### L IPID, TSH, CMP #### [facility] [address] [place] [address] Dr. Dylan Santana EGFR-NON AF INDIAN 47 mL/min/1.73m2 Critically low >=60 [facility] Comment on above: Performed By: #### L IPID, TSH, CMP #### [facility] [address] [place] [address] Dr. Dylan Santana Glucose [Mass/Vol] 176 mg/dL Critically high 74-[address] [facility] Comment on above: Performed By: #### L IPID, TSH, CMP #### [facility] [address] [place] [address] Dr. Dylan Santana Potassium [Moles/Vol] 4.0 mmol/L Normal 3.5-5.1 [facility] Comment on above: Performed By: #### L IPID, TSH, CMP #### [facility] [address] [place] [address] Dr. Dylan Santana Sodium [Moles/Vol] 137 mmol/L Normal 136-145 [facility] Comment on above: Performed By: #### L IPID, TSH, CMP #### [facility] [address] [place] [address] Dr. Dylan Santana Urea nitrogen [Mass/Vol] 21.0 mg/dL Critically high 7.0-18.0 [facility] Comment on above: Performed By: #### L IPID, TSH, CMP #### [facility] [address] [place] [address] Dr. Dylan Santana Urea nitrogen/Creatinine [Mass ratio] 18.4 mg/mg Normal [facility] Comment on above: Performed By: #### L IPID, TSH, CMP #### [facility] [address] [place] [address] Dr. Dylan Santana RESPIRATORY PANEL PLUSon Adenovirus Not detected Normal NOT DETECTED [facility] Comment on above: Performed By: #### C BC #### [facility] [address] [place] [address] Dr. Dylan Pastor. Parapertusis Not detected Normal NOT DETECTED [facility] Comment on above: Performed By: #### C BC #### [facility] [address] [place] [address] Dr. Dylan Mccurdy Pertussis Not detected Normal NOT DETECTED [facility] Comment on above: Performed By: #### C BC #### [facility] [address] [place] [address] Dr. Dylan Santana Chlamydia Pneumoniae Not detected Normal NOT DETECTED [facility] Comment on above: Performed By: #### C BC #### [facility] [address] [place] [address] Dr. Dylan Santana Coronavirus 229E Not detected Normal NOT DETECTED [facility] Comment on above: Performed By: #### C BC #### [facility] [address] [place] [address] Dr. Dylan Santana Coronavirus HKU1 Not detected Normal NOT DETECTED [facility] Comment on above: Performed By: #### C BC #### [facility] [address] [place] [address] Dr. Dylan Santana Coronavirus NL63 Not detected Normal NOT DETECTED [facility] Comment on above: Performed By: #### C BC #### [facility] [address] [place] [address] Dr. Dylan Santana Coronavirus OC43 Not detected Normal NOT DETECTED [facility] Comment on above: Performed By: #### C BC #### [facility] [address] [place] [address] Dr. Dylan Santana Influenza A H1 2009 Not detected Normal NOT DETECTED [facility] Comment on above: Performed By: #### C BC #### [facility] [address] [address] [address] Dylan Santana Influenza A H3 Not detected Normal NOT DETECTED [facility] Comment on above: Performed By: #### C BC #### [facility] [address] [address] [address] Dylan Santana Influenza B Not detected Normal NOT DETECTED [facility] Comment on above: Performed By: #### C BC #### [facility] [address] [address] [address] Dylan Santana Metapneumovirus Not detected Normal NOT DETECTED [facility] Comment on above: Performed By: #### C BC #### [facility] [address] [place] [address] Dr. Dylan Santana Mycoplas. Pneumoniae Not detected Normal NOT DETECTED [facility] Comment on above: Performed By: #### C BC #### [facility] [address] [place] [address] Dr. Dylan Santana Parainfluenza 1 Not detected Normal NOT DETECTED [facility] Comment on above: Performed By: #### C BC #### [facility] [address] [place] [address] Dr. Dylan Santana Parainfluenza 2 Not detected Normal NOT DETECTED [facility] Comment on above: Performed By: #### C BC #### [facility] [address] [place] [address] Dr. Dylan Santana Parainfluenza 3 Not detected Normal NOT DETECTED [facility] Comment on above: Performed By: #### C BC #### [facility] [address] [address] [address] Dylan Santana Parainfluenza 4 Not detected Normal NOT DETECTED [facility] Comment on above: Performed By: #### C BC #### [facility] [address] [place] [address] Dr. Dylan Santana Rhino/Enterovirus Not detected Normal NOT DETECTED [facility] Comment on above: Performed By: #### C BC #### [facility] [address] [place] [address] Dr. Dylan Santana RP2 Header 1 RESPIRATORY PANEL: VIRUSES Normal [facility] Comment on above: Performed By: #### C BC #### [facility] [address] [place] [address] Dr. Dylan Santana RP2 Header 2 RESPIRATORY PANEL: BACTERIA Normal [facility] Comment on above: Performed By: #### C BC #### [facility] [address] [place] [address] Dr. Dylan Santana RSV Detected Critically abnormal NOT DETECTED [facility] Comment on above: Performed By: #### C BC #### [facility] [address] [place] [address] Dr. Dylan Santana SARS-CoV-2 (COVID-19) RNA LUIS+probe Ql (Unsp spec) Not detected Normal NOT DETECTED [facility] Comment on above: Performed By: #### C BC #### [facility] [address] [place] [address] Dr. Dylan Santana TROPONIN, HIGH SENSITIVITYon 06-10-2022 HSTROP 18.5 pg/mL Normal 4.0-51.3 [facility] Comment on above: Result Comment: CUT- OFF POINTS HAVE BEEN ESTABLISHED BASED ON THE FOURTH UNIVERSAL DEFINITIONS OF MYOCARDIAL INFARCTION. THE UPPER REFERENCE LIMIT (URL) OF TROPONIN, DEFINED THE 99TH PERCENTILE OF cTnI DISTRIBUTION IN A REFERENCE POPULATION, HAS BEEN CONFIRMED THE DECISION THRESHOLD FOR UT DIAGNOSIS. Performed By: #### L IPID, TSH, CMP #### [facility] [address] [place] [address] Dr. Dylan Santana HSTROP 18.8 pg/mL Normal 4.0-51.3 [facility] Comment on above: Result Comment: CUT- OFF POINTS HAVE BEEN ESTABLISHED BASED ON THE FOURTH UNIVERSAL DEFINITIONS OF MYOCARDIAL INFARCTION. THE UPPER REFERENCE LIMIT (URL) OF TROPONIN, DEFINED THE 99TH PERCENTILE OF cTnI DISTRIBUTION IN A REFERENCE POPULATION, HAS BEEN CONFIRMED THE DECISION THRESHOLD FOR UT DIAGNOSIS. Performed By: #### C MP, HSTROPN #### [facility] [address] [place] [address] Dr. Dylan Santana XR CHEST 1 Von [...] by: YONIS PACHECO Date: 2022-06-10 02:13 Normal [facility] ECHOCARDIO M/2D COMPLETEon 1 07-08-2021 ECHOCARDIO M/2D COMPLETE Patient: LIBRA NOONAN Exam Date: 05/08/2022 : 1950 Gender:F Ordering : [facility] Admission #: [id number] Family : Order #: [id number] CLICK HERE TO VIEW EXAM ECHOCARDIOGRAM REPORT [...] Capellan M.D. on 05/09/2022 at 20:11 Normal [facility] NM STRESS/REST MULTIon 03-08 NM STRESS/REST MULTI Patient: LIBRA NOONAN Exam Date: 03/08/2022 : 1950 Gender:F Ordering : DR GARRISON BELL M.D. Admission #: [id number] Family : Order #: [id number] CLICK HERE TO VIEW EXAM RADIOLOGY REPORT [...] DEFECT: LOCATION: Basal anterior. Mid-anterior. Apical anterior. [place]. SIZE: Medium (3-4 segments). SEVERITY: Moderate. TYPE: [...] MD on 03/09/2022 at 11:54 Normal [facility] CBC AUTO DIFFon 01-24-2022 BASO # 0.0 103/ul Normal 0.0-0.1 [facility] Comment on above: Performed By: #### C BC #### [facility] [address] [place] [address] Dr. Dylan Santana Basophils/100 WBC (Bld) 0.5 % Normal 0.2-2.0 [facility] Comment on above: Performed By: #### C BC #### [facility] [address] [place] [address] Dr. Dylan Santana EO # 0.2 103/ul Normal 0.0-0.7 [facility] Comment on above: Performed By: #### C BC #### [facility] [address] [place] [address] Dr. Dylan Santana Eosinophils/100 WBC (Bld) 2.8 % Normal 0.9-7.0 [facility] Comment on above: Performed By: #### C BC #### [facility] [address] [place] [address] Dr. Dylan Santana Erythrocyte distribution width (RBC) [Ratio] 13.0 % Normal 11.0-15.0 [facility] Comment on above: Performed By: #### C BC #### [facility] [address] [place] [address] Dr. Dylan Santana Hematocrit (Bld) [Volume fraction] 40.8 % Normal 36.0-48.0 [facility] Comment on above: Performed By: #### C BC #### [facility] [address] [place] [address] Dr. Dylan Santana Hemoglobin (Bld) [Mass/Vol] 13.0 g/dL Normal 12.0-16.0 [facility] Comment on above: Performed By: #### C BC #### [facility] [address] [place] [address] Dr. Dylan Santana IG # 0.04 10e3/ul Critically high 0.00-0.03 [facility] Comment on above: Performed By: #### C BC #### [facility] [address] [place] [address] Dr. Dylan Santana IG % 0.5 % Normal 0.0-0.5 [facility] Comment on above: Performed By: #### C BC #### [facility] [address] [place] [address] Dr. Dylan Santana LYMPH # 2.7 103/ul Normal 1.2-3.8 [facility] Comment on above: Performed By: #### C BC #### [facility] [address] [place] [address] Dr. Dylan Santana Lymphocytes/100 WBC (Bld) 34.3 % Normal 20.5-60.0 [facility] Comment on above: Performed By: #### C BC #### [facility] [address] [place] [address] Dr. Dylan Santana MANUAL DIFF REQ NO Normal [facility] Comment on above: Performed By: #### C BC #### [facility] [address] [place] [address] Dr. Dylan Santana MCH (RBC) [Entitic mass] 30.0 pg Normal 26.7-34.0 [facility] Comment on above: Performed By: #### C BC #### [facility] [address] [place] [address] Dr. Dylan Santana MCHC (RBC) [Mass/Vol] 31.9 g/dL Normal 29.9-35.2 [facility] Comment on above: Performed By: #### C BC #### [facility] [address] [place] [address] Dr. Dylan Santana MCV (RBC) [Entitic vol] 94.0 fL Normal 81.0-99.0 [facility] Comment on above: Performed By: #### C BC #### [facility] [address] [place] [address] Dr. Dylan Santana MONO # 0.4 103/ul Normal 0.3-0.8 [facility] Comment on above: Performed By: #### C BC #### [facility] [address] [place] [address] Dr. Dylan Santana Monocytes/100 WBC (Bld) 5.1 % Normal 1.7-12.0 [facility] Comment on above: Performed By: #### C BC #### [facility] [address] [place] [address] Dr. Dylan Santana NEUT # 4.4 103/ul Normal 1.4-6.5 [facility] Comment on above: Performed By: #### C BC #### [facility] [address] [place] [address] Dr. Dylan Santana Neutrophils/100 WBC (Bld) 56.8 % Normal 43.0-75.0 [facility] Comment on above: Performed By: #### C BC #### [facility] [address] [place] [address] Dr. Dylan Santana Platelet mean volume (Bld) [Entitic vol] 10.7 fL Normal 9.5-13.5 [facility] Comment on above: Performed By: #### C BC #### [facility] [address] [place] [address] Dr. Dylan Santana PLT 212 103/ul Normal 150-450 [facility] Comment on above: Performed By: #### C BC #### [facility] [address] [place] [address] Dr. Dylan Santana RBC 4.34 106/ul Normal 4.20-5.40 [facility] Comment on above: Performed By: #### C BC #### [facility] [address] [place] [address] Dr. Dylan Santana WBC 7.8 103/ul Normal 4.0-11.0 [facility] Comment on above: Performed By: #### C BC #### [facility] [address] [place] [address] Dr. Dylan Santana FREE T4on 01-24-2022 Free T4 [Mass/Vol] 1.02 ng/dL Normal 0.76-1.46 [facility] Comment on above: Performed By: #### F T4 #### [facility] [address] [place] [address] Dr. Dylan Santana GLYCOHEMOGLOBIN A1Con 2021 ADA RECOMMENDATION SEE BELOW Normal [facility] Comment on above: Result Comment: ADA RECOMMENDED LIMIT 4.0 - 6.0 ADA THERAPEUTIC TARGET < 7.0 ACTION SUGGESTED > 7.0 Performed By: #### C BC #### [facility] [address] [place] [address] Dr. Dylan Santana Glucose [Mass/Vol] 189 mg/dL Normal [facility] Comment on above: Performed By: #### C BC #### [facility] [address] [address] [address] Dylan Santana HbA1c (Bld) [Mass fraction] 8.2 % Critically high 4.5-6.2 [facility] Comment on above: Performed By: #### C BC #### [facility] [address] [address] [address] Dylan Santana LIPID PROFILEon 01-24-2022 CHOL-HDL RATIO NORM SEE BELOW Normal [facility] Comment on above: Result Comment: 3.3 - 4.4 LOW RISK 4.4 - 7.1 AVERAGE RISK 7.1 - 11.0 MODERATE RISK >11.0 HIGH RISK Performed By: #### L IPID, TSH, CMP #### [facility] [address] [address] [address] Dylan Santana Cholesterol [Mass/Vol] 235 mg/dL Critically high <=200 [facility] Comment on above: Performed By: #### L IPID, TSH, CMP #### [facility] [address] [address] [address] Dylan Santana Cholesterol in HDL [Mass/Vol] 64 mg/dL Critically high 40-60 [facility] Comment on above: Performed By: #### L IPID, TSH, CMP #### [facility] [address] [address] [address] Dylan aSntana Cholesterol in LDL [Mass/Vol] 139.8 mg/dL Normal [facility] Comment on above: Performed By: #### L IPID, TSH, CMP #### [facility] [address] [address] [address] Dylan Santana Cholesterol.total/C holesterol in HDL [Mass ratio] 3.7 {ratio} Normal [facility] Comment on above: Performed By: #### L IPID, TSH, CMP #### [facility] [address] [address] [address] Dylan Santana HDL NORMAL > or = 60 mg/dl - LO W CARDIOVASCULAR RISK <40 mg/dl - HIGH CARDIOVASCULAR RISK Normal [facility] Comment on above: Performed By: #### L IPID, TSH, CMP #### [facility] [address] [address] [address] Dylan Santana LDL CALC NORMAL SEE BELOW Normal [facility] Comment on above: Result Comment: <100 mg/dl OPTIMAL 100 - 129 mg/dl NEAR OR ABOVE OPTIMAL 130 - 159 mg/dl BORDERLINE HIGH 160 - 189 mg/dl HIGH >190 mg/dl VERY HIGH Performed By: #### L IPID, TSH, CMP #### [facility] [address] [address] [address] Dylan Santana Triglyceride [Mass/Vol] 156 mg/dL Critically high <=150 [facility] Comment on above: Performed By: #### L IPID, TSH, CMP #### [facility] [address] [address] [address] Dylan Santana VLDL CALC 31.2 mg/dL Normal [facility] Comment on above: Performed By: #### L IPID, TSH, CMP #### [facility] [address] [address] [address] Dylan Santana PROF 14(COMP METB)on 022 Albumin [Mass/Vol] 3.3 g/dL Critically low 3.4-5.0 [facility] Comment on above: Performed By: #### L IPID, TSH, CMP #### [facility] [address] [address] [address] Dylan Santana Albumin/Globulin [Mass ratio] 0.9 {ratio} Normal [facility] Comment on above: Performed By: #### L IPID, TSH, CMP #### [facility] [address] [address] [address] Dylan Santana ALP [Catalytic activity/Vol] 109 U/L Normal 46-116 [facility] Comment on above: Performed By: #### L IPID, TSH, CMP #### [facility] [address] [address] [address] Dylan Santana ALT [Catalytic activity/Vol] 25 U/L Normal 14-59 [facility] Comment on above: Performed By: #### L IPID, TSH, CMP #### [facility] [address] [address] [address] Dylan Santana Anion gap [Moles/Vol] 14.7 mmol/L Normal [facility] Comment on above: Performed By: #### L IPID, TSH, CMP #### [facility] [address] [address] [address] Dylan Santana AST [Catalytic activity/Vol] 12 U/L Critically low 15-37 [facility] Comment on above: Performed By: #### L IPID, TSH, CMP #### [facility] [address] [address] [address] Dylan Santana Bilirubin [Mass/Vol] 0.6 mg/dL Normal 0.2-1.0 [facility] Comment on above: Performed By: #### L IPID, TSH, CMP #### [facility] [address] [address] [address] Dylan Santana Calcium [Mass/Vol] 8.8 mg/dL Normal 8.5-10.1 [facility] Comment on above: Performed By: #### L IPID, TSH, CMP #### [facility] [address] [address] [address] Dylan Santana Chloride [Moles/Vol] 102 mmol/L Normal 98-107 [facility] Comment on above: Performed By: #### L IPID, TSH, CMP #### [facility] [address] [address] [address] Dylan Santana CO2 [Moles/Vol] 27.5 mmol/L Normal 21.0-32.0 [facility] Comment on above: Performed By: #### L IPID, TSH, CMP #### [facility] [address] [place] [address] Dr. Dylan Santana Creatinine [Mass/Vol] 1.14 mg/dL Critically high 0.55-1.02 [facility] Comment on above: Performed By: #### L IPID, TSH, CMP #### [facility] [address] [place] [address] Dr. Dylan Santana EGFR-AF INDIAN 57 mL/min/1.73m2 Critically low >=60 [facility] Comment on above: Performed By: #### L IPID, TSH, CMP #### [facility] [address] [address] [address] Dylan Santana EGFR-NON AF INDIAN 47 mL/min/1.73m2 Critically low >=60 [facility] Comment on above: Performed By: #### L IPID, TSH, CMP #### [facility] [address] [place] [address] Dr. Dylan Santana Globulin (S) [Mass/Vol] 3.7 g/dL Normal [facility] Comment on above: Performed By: #### L IPID, TSH, CMP #### [facility] [address] [place] [address] Dr. Dylan Santana Glucose [Mass/Vol] 249 mg/dL Critically high 74-[address] [facility] Comment on above: Performed By: #### L IPID, TSH, CMP #### [facility] [address] [address] [address] Dylan Santana Potassium [Moles/Vol] 4.2 mmol/L Normal 3.5-5.1 [facility] Comment on above: Performed By: #### L IPID, TSH, CMP #### [facility] [address] [place] [address] Dr. Dylan Santana Protein [Mass/Vol] 7.0 g/dL Normal 6.4-8.2 [facility] Comment on above: Performed By: #### L IPID, TSH, CMP #### [facility] [address] [address] [address] Dylan Santana Sodium [Moles/Vol] 140 mmol/L Normal 136-145 [facility] Comment on above: Performed By: #### L IPID, TSH, CMP #### [facility] [address] [address] [address] Dylan Santana Urea nitrogen [Mass/Vol] 20.0 mg/dL Critically high 7.0-18.0 [facility] Comment on above: Performed By: #### L IPID, TSH, CMP #### [facility] [address] [place], [place] [address] Dr. Dylan Santana Urea nitrogen/Creatinine [Mass ratio] 17.5 mg/mg Normal [facility] Comment on above: Performed By: #### L IPID, TSH, CMP #### [facility] [address] [place], [place] [address] Dr. Dylan Santana TSHon 01-24-2022 TSH 3.673 uIU/mL Normal 0.358-3.740 [facility] Comment on above: Performed By: #### L IPID, TSH, CMP #### [facility] [address] [address] [address] Dylan Santana COVID Quick Testingon 2021 Result Negative [facility] 09-22-2021 Lab Reports [id number] CD:127 Normal [facility] Vital Signs Date Time Vital Sign Value Performing Clinician Facility 02-09-2025 11:36-0400 Body height 157.48 cm Garrison Bell MD Work Phone: [facility] 02-09-2025 11:36-0400 Body mass index (BMI) [Ratio] 60.7 kg/m2 Garrison Bell MD Work Phone: [facility] 02-09-2025 11:36-0400 Body weight 150.64 kg Garrison Bell MD Work Phone: [facility] 02-09-2025 11:36-0400 Diastolic blood pressure 83 mm[Hg] Garrison Bell MD Work Phone: [facility] 02-09-2025 11:36-0400 Heart rate 79 /min Garrison Bell MD Work Phone: [facility] 02-09-2025 11:36-0400 Respiratory rate 14 /min Garrison Bell MD Work Phone: [facility] 02-09-2025 11:36-0400 SaO2% (BldA) [Mass fraction] 96 % Garrison Bell MD Work Phone: [facility] 02-09-2025 11:36-0400 Systolic blood pressure 150 mm[Hg] Garrison Bell MD Work Phone: [facility] 11-12-2024 12:41-0400 Body height 157.48 cm Jacinto Katko DO Work Phone: [facility] 11-12-2024 12:41-0400 Body mass index (BMI) [Ratio] 59.3 kg/m2 Jacinto Katko DO Work Phone: [facility] 11-12-2024 12:41-0400 Body weight 147.07 kg Jacinto Katko DO Work Phone: [facility] 11-12-2024 12:41-0400 Diastolic blood pressure 57 mm[Hg] Jacinto Katko DO Work Phone: [facility] 11-12-2024 12:41-0400 Heart rate 73 /min Jacinto Katko DO Work Phone: [facility] 11-12-2024 12:41-0400 Respiratory rate 18 /min Jacinto Katko DO Work Phone: [facility] 11-12-2024 12:41-0400 SaO2% (BldA) [Mass fraction] 98 % Jacinto Katko DO Work Phone: [facility] 11-12-2024 12:41-0400 Systolic blood pressure 122 mm[Hg] Jacinto Katko DO Work Phone: [facility] 10-29-2024 11:26-0400 Body height 157.48 cm Jacinto Katko DO Work Phone: [facility] 10-29-2024 11:26-0400 Body mass index (BMI) [Ratio] 58.3 kg/m2 Jacinto Katko DO Work Phone: [facility] 10-29-2024 11:26-0400 Body weight 144.86 kg Jacinto Fraga DO Work Phone: [facility] 10-29-2024 11:26-0400 Diastolic blood pressure 84 mm[Hg] Jacinto Fraga DO Work Phone: [facility] 10-29-2024 11:26-0400 Heart rate 81 /min Jacinto Fraga DO Work Phone: [facility] 10-29-2024 11:26-0400 Respiratory rate 12 /min Jacinto Fraga DO Work Phone: [facility] 10-29-2024 11:26-0400 SaO2% (BldA) [Mass fraction] 98 % Jacinto Fraga DO Work Phone: [facility] 10-29-2024 11:26-0400 Systolic blood pressure 159 mm[Hg] Jacinto Fraga DO Work Phone: [facility] [facility] 09-14-2024 10:58-0400 Body height 157.48 cm Jacinto Fraga [facility] 09-14-2024 10:58-0400 Body mass index (BMI) [Ratio] 58 kg/m2 Jacintofelipe Fraga [facility] 09-14-2024 10:58-0400 Body weight 144.01 kg Jacinto Fraga [facility] 09-14-2024 10:58-0400 Diastolic blood pressure 88 mm[Hg] Jacinto Fraga [facility] 09-14-2024 10:58-0400 Heart rate 79 /min Jacintofelipe Fraga [facility] 09-14-2024 10:58-0400 Respiratory rate 14 /min Jacinto Fraga [facility] 09-14-2024 10:58-0400 SaO2% (BldA) [Mass fraction] 99 % Jacintofelipe Fraga [facility] 09-14-2024 10:58-0400 Systolic blood pressure 129 mm[Hg] Jacinto Fraga [facility] 07-08-2024 11:33-0500 Body height 157.48 cm [facility] 07-08-2024 11:33-0500 Body mass index (BMI) [Ratio] 58 kg/m2 [facility] 07-08-2024 11:33-0500 Body weight 143.9 kg [facility] 07-08-2024 11:33-0500 Diastolic blood pressure 83 mm[Hg] [facility] 07-08-2024 11:33-0500 Heart rate 84 /min [facility] 07-08-2024 11:33-0500 Respiratory rate 16 /min [facility] 07-08-2024 11:33-0500 Systolic blood pressure 136 mm[Hg] [facility] 04-06-2024 11:38-0400 Body height 157.48 cm MD Garrison Bell Work Phone: [facility] 04-06-2024 11:38-0400 Body mass index (BMI) [Ratio] 57.8 kg/m2 MD Garrison Bell Work Phone: [facility] 04-06-2024 11:38-0400 Body weight 143.44 kg MD Garrison Bell Work Phone: [facility] 04-06-2024 11:38-0400 Diastolic blood pressure 82 mm[Hg] MD Garrison Bell Work Phone: [facility] 04-06-2024 11:38-0400 Heart rate 77 /min MD Garrison Bell Work Phone: [facility] 04-06-2024 11:38-0400 Respiratory rate 18 /min MD Garrison Bell Work Phone: [facility] 04-06-2024 11:38-0400 SaO2% (BldA) [Mass fraction] 98 % MD Garrison Bell Work Phone: [facility] 04-06-2024 11:38-0400 Systolic blood pressure 128 mm[Hg] MD Garrison Bell Work Phone: [facility] 03-24-2024 10:26-0400 Diastolic blood pressure 81 mm[Hg] MD Garrison Bell Work Phone: [facility] 03-24-2024 10:26-0400 Heart rate 72 /min MD Garrison Bell Work Phone: [facility] 03-24-2024 10:26-0400 Respiratory rate 16 /min MD Garrison Bell Work Phone: [facility] 03-24-2024 10:26-0400 SaO2% (BldA) [Mass fraction] 96 % MD Garrison Bell Work Phone: [facility] 03-24-2024 10:260400 Systolic blood pressure 165 mm[Hg] MD Garrison Bell Work Phone: [facility] 03-24-2024 09:45-0400 Inhaled oxygen flow rate 3 L/min MD Garrison Bell Work Phone: [facility] 03-24-2024 08:54-0400 Body height 157.48 cm MD Garrison Bell Work Phone: [facility] 03-24-2024 08:54-0400 Body weight 144.69 kg MD Garrison Bell Work Phone: [facility] 03-23-2024 08:24-0400 Body height 157.48 cm [facility] 03-23-2024 08:24-0400 Body mass index (BMI) [Ratio] 59.1 kg/m2 [facility] 03-23-2024 08:24-0400 Body temperature 98.5 [degF] [facility] 03-23-2024 08:24-0400 Body weight 146.68 kg [facility] 03-23-2024 08:24-0400 Diastolic blood pressure 85 mm[Hg] [facility] 03-23-2024 08:24-0400 Heart rate 79 /min [facility] 03-23-2024 08:24-0400 Respiratory rate 20 /min [facility] 03-23-2024 08:24-0400 SaO2% (BldA) [Mass fraction] 98 % [facility] 03-23-2024 08:24-0400 Systolic blood pressure 157 mm[Hg] [facility] 01-15-2024 10:44-0400 Body height 157.48 cm MD Garrison Bell Work Phone: [facility] 01-15-2024 10:44-0400 Body mass index (BMI) [Ratio] 56.8 kg/m2 MD Garrison Bell Work Phone: [facility] 01-15-2024 10:44-0400 Body weight 141 kg MD Garrison Bell Work Phone: [facility] 12-04-2023 11:38-0400 Body height 157.48 cm MD Garrison Bell Work Phone: [facility] 12-04-2023 11:38-0400 Body mass index (BMI) [Ratio] 57 kg/m2 MD Garrison Bell Work Phone: [facility] 12-04-2023 11:38-0400 Body weight 141.52 kg MD Garrison Bell Work Phone: [facility] 12-04-2023 11:38-0400 Diastolic blood pressure 80 mm[Hg] MD Garrison Bell Work Phone: [facility] 12-04-2023 11:38-0400 Heart rate 80 /min MD Garrison Bell Work Phone: [facility] 12-04-2023 11:38-0400 Systolic blood pressure 125 mm[Hg] MD Garrison Bell Work Phone: [facility] 10-15-2023 10:57-0400 Diastolic blood pressure 82 mm[Hg] MD Garrison Bell Work Phone: [facility] 10-15-2023 10:57-0400 Heart rate 81 /min MD Garrison Bell Work Phone: [facility] 10-15-2023 10:57-0400 Respiratory rate 16 /min MD Garrison Bell Work Phone: [facility] 10-15-2023 10:57-0400 SaO2% (BldA) [Mass fraction] 97 % MD Garrison Bell Work Phone: [facility] 10-15-2023 10:57-0400 Systolic blood pressure 147 mm[Hg] MD Garrison Bell Work Phone: [facility] 10-15-2023 10:16-0400 Inhaled oxygen flow rate 3 L/min MD Garrison Bell Work Phone: [facility] 10-15-2023 09:44-0400 Body height 157.48 cm MD Garrison Bell Work Phone: [facility] 10-15-2023 09:44-0400 Body weight 141.52 kg MD Garrison Bell Work Phone: [facility] 09-04-2023 11:24-0400 Body height 160.02 cm [facility] 09-04-2023 11:24-0400 Body mass index (BMI) [Ratio] 57 kg/m2 [facility] 09-04-2023 11:24-0400 Body weight 146.11 kg [facility] 09-04-2023 11:24-0400 Diastolic blood pressure 97 mm[Hg] [facility] 09-04-2023 11:24-0400 Heart rate 86 /min [facility] 09-04-2023 11:24-0400 SaO2% (BldA) [Mass fraction] 98 % [facility] 09-04-2023 11:24-0400 Systolic blood pressure 166 mm[Hg] [facility] 06-05-2023 11:30-0500 Body height 160.02 cm Garrison Bell Other [employer] [employer] Other 06-05-2023 11:30-0500 Body mass index (BMI) [Ratio] 55.62 kg/m2 Garrison Bell Other [employer] Other 06-05-2023 11:30-0500 Body weight 142.43 kg Garrison Bell Other [facility] [employer] Other 06-05-2023 11:30-0500 Diastolic blood pressure 78 mm[Hg] Garrison Bell Other [employer] Other 06-05-2023 11:30-0500 SaO2% (BldA) [Mass fraction] 98 % Garrison Bell Other [facility] [employer] Other 06-05-2023 11:30-0500 Systolic blood pressure 132 mm[Hg] Garrison Bell Other [facility] [employer] Other 05-28-2023 11:00-0500 Diastolic blood pressure 97 mm[Hg] MD Garrison Bell Work Phone: [facility] 05-28-2023 11:00-0500 Heart rate 79 /min MD Garrison Bell Work Phone: [facility] 05-28-2023 11:00-0500 Respiratory rate 16 /min MD Garrison Bell Work Phone: [facility] 05-28-2023 11:00-0500 SaO2% (BldA) [Mass fraction] 98 % MD Garrison Bell Work Phone: [facility] 05-28-2023 11:00-0500 Systolic blood pressure 173 mm[Hg] MD Garrison Bell Work Phone: [facility] 05-28-2023 10:15-0500 Inhaled oxygen flow rate 3 L/min MD Garrison Bell Work Phone: [facility] 05-28-2023 10:04-0500 Body height 157.48 cm MD Garrison Bell Work Phone: [facility] 05-28-2023 10:04-0500 Body weight 141.52 kg MD Garrison Bell Work Phone: [facility] 05-07-2023 10:15-0500 Diastolic blood pressure 87 mm[Hg] MD Garrison Bell Work Phone: [facility] 05-07-2023 10:15-0500 Heart rate 74 /min MD Garrison Bell Work Phone: [facility] 05-07-2023 10:15-0500 Respiratory rate 16 /min MD Garrison Bell Work Phone: [facility] 05-07-2023 10:15-0500 SaO2% (BldA) [Mass fraction] 95 % MD Garrison Bell Work Phone: [facility] 05-07-2023 10:15-0500 Systolic blood pressure 173 mm[Hg] MD Garrison Bell Work Phone: [facility] 05-07-2023 09:30-0500 Inhaled oxygen flow rate 3 L/min MD Garrison Bell Work Phone: [facility] 05-07-2023 08:40-0500 Body height 157.48 cm MD Garrison Bell Work Phone: [facility] 05-07-2023 08:40-0500 Body weight 141.52 kg MD Garrison Bell Work Phone: [facility] 03-06-2023 11:30-0400 Body height 160.02 cm Garrison Bell Other [facility] [employer] Other 03-06-2023 11:30-0400 Body mass index (BMI) [Ratio] 55.26 kg/m2 Garrison Bell Other [facility] [employer] Other 03-06-2023 11:30-0400 Body weight 141.52 kg Garrison Bell Other [facility] [employer] Other 03-06-2023 11:30-0400 Diastolic blood pressure 72 mm[Hg] Garrison Bell Other [employer] Other 03-06-2023 11:30-0400 Respiratory rate 12 /min Garrison Bell Other [facility] [employer] Other 03-06-2023 11:30-0400 Systolic blood pressure 118 mm[Hg] Garrison Bell Other [facility] [employer] Other 02-12-2023 11:10-0400 Diastolic blood pressure 80 mm[Hg] MD Garrison Bell Work Phone: [facility] 02-12-2023 11:10-0400 Heart rate 80 /min MD Garrison Bell Work Phone: [facility] 02-12-2023 11:10-0400 Respiratory rate 18 /min MD Garrison Bell Work Phone: [facility] 02-12-2023 11:10-0400 SaO2% (BldA) [Mass fraction] 96 % MD Garrison Bell Work Phone: [facility] 02-12-2023 11:10-0400 Systolic blood pressure 145 mm[Hg] MD Garrison Bell Work Phone: [facility] 02-12-2023 10:28-0400 Inhaled oxygen flow rate 3 L/min MD Garrison Bell Work Phone: [facility] 02-12-2023 09:59-0400 Body height 157.48 cm MD Garrison Bell Work Phone: [facility] 02-12-2023 09:59-0400 Body weight 92.07 kg MD Garrison Bell Work Phone: [facility] 12-05-2022 11:30-0400 Body height 160.02 cm Garrison Bell Other [facility] [employer] Other 12-05-2022 11:30-0400 Body mass index (BMI) [Ratio] 55.09 kg/m2 Garrison Bell Other [facility] [employer] Other 12-05-2022 11:30-0400 Body temperature 97.8 [degF] Garrison Bell Other [facility] [employer] Other 12-05-2022 11:30-0400 Body weight 141.07 kg Garrison Bell Other [facility] [employer] Other 12-05-2022 11:30-0400 Diastolic blood pressure 50 mm[Hg] Garrison Bell Other [facility] [employer] Other 12-05-2022 11:30-0400 Systolic blood pressure 92 mm[Hg] Garrison Bell Other [facility] [employer] Other 10-23-2022 09:42-0400 Diastolic blood pressure 80 mm[Hg] MD Garrison Bell Work Phone: [facility] 10-23-2022 09:42-0400 Heart rate 75 /min MD Garrison Bell Work Phone: [facility] 10-23-2022 09:42-0400 Respiratory rate 18 /min MD Garrison Bell Work Phone: [facility] 10-23-2022 09:42-0400 SaO2% (BldA) [Mass fraction] 98 % MD Garrison Bell Work Phone: [facility] 10-23-2022 09:42-0400 Systolic blood pressure 142 mm[Hg] MD Garrison Bell Work Phone: [facility] 10-23-2022 09:03-0400 Inhaled oxygen flow rate 3 L/min MD Garrison Bell Work Phone: [facility] 10-23-2022 08:15-0400 Body height 157.48 cm MD Garrison Bell Work Phone: [facility] 10-23-2022 08:15-0400 Body weight 141.97 kg MD Garrison Bell Work Phone: [facility] 10-09-2022 16:00-0400 Body height 160.02 cm Alka Hankins Other [employer] Other 10-09-2022 16:00-0400 Body mass index (BMI) [Ratio] 55.26 kg/m2 Alka Hankins Other [employer] Other 10-09-2022 16:00-0400 Body weight 141.52 kg Alka Hankins Other [employer] Other 09-04-2022 12:30-0400 Body height 160.02 cm Garrison Bell Other [employer] Other 09-04-2022 12:30-0400 Body mass index (BMI) [Ratio] 55.26 kg/m2 Garrison Bell Other [employer] Other 09-04-2022 12:30-0400 Body weight 141.52 kg Garrison Bell Other [employer] Other 09-04-2022 12:30-0400 Diastolic blood pressure 82 mm[Hg] Garrison Bell Other [employer] Other 09-04-2022 12:30-0400 Systolic blood pressure 128 mm[Hg] Garrison Bell Other [employer] Other 08-07-2022 08:38-0500 Diastolic blood pressure 55 mm[Hg] MD Garrison Bell Work Phone: [facility] 08-07-2022 08:38-0500 Heart rate 78 /min MD Garrison Bell Work Phone: [facility] 08-07-2022 08:38-0500 Respiratory rate 16 /min MD Garrison Bell Work Phone: [facility] 08-07-2022 08:38-0500 SaO2% (BldA) [Mass fraction] 95 % MD Garrison Bell Work Phone: [facility] 08-07-2022 08:38-0500 Systolic blood pressure 130 mm[Hg] MD Garrison Bell Work Phone: [facility] 08-07-2022 07:59-0500 Inhaled oxygen flow rate 3 L/min MD Garrison Bell Work Phone: [facility] 08-07-2022 07:23-0500 Body height 157.48 cm MD Garrison Bell Work Phone: [facility] 08-07-2022 07:23-0500 Body weight 141.97 kg MD Garrison Bell Work Phone: [facility] 02-27-2022 14:15-0400 Body height 160.02 cm Zena García Other [employer] Other 02-27-2022 14:15-0400 Body mass index (BMI) [Ratio] 53.67 kg/m2 Zena García Other [employer] Other 02-27-2022 14:15-0400 Body weight 137.44 kg Zena García Other [employer] Other 02-06-2022 15:00-0400 Body height 160.02 cm Zena García Other [employer] Other 02-06-2022 15:00-0400 Body mass index (BMI) [Ratio] 53.67 kg/m2 Zena García Other [employer] Other 02-06-2022 15:00-0400 Body weight 137.44 kg Zena García Other [employer] Other 01-03-2022 10:35-0400 Body height 160.02 cm Jazz Nance Other [employer] Other 01-03-2022 10:35-0400 Body mass index (BMI) [Ratio] 53.67 kg/m2 Jazz Nance Other [employer] Other 01-03-2022 10:35-0400 Body temperature 98.5 [degF] Jazz Nance Other [employer] Other 01-03-2022 10:35-0400 Body weight 137.44 kg Jazz Nance Other [employer] Other 01-03-2022 10:35-0400 SaO2% (BldA) [Mass fraction] 95 % Jazz Nance Other [employer] Other 11-06-2021 15:45-0400 Body height 160.02 cm Zena García Other [employer] Other 03-22-2021 10:45-0400 Body height 160.02 cm Zena García Other [employer] Other 03-22-2021 10:45-0400 Body mass index (BMI) [Ratio] 50.3 kg/m2 Zena García Other [employer] Other 03-22-2021 10:45-0400 Body weight 128.82 kg Zena García Other [employer] Other Encounters Encounter Date Encounter Type Care Provider Facility Start: 02-09-2025 End: 02-09-2025 ambulatory Garrison Bell MD Work Phone: [facility] Work Phone: Start: 02-09-2025 End: 02-09-2025 Patient encounter procedure Garrison Bell MD -[facility] Work Phone: Start: 11-19-2024 End: 11-19-2024 ambulatory [facility] Start: 11-12-2024 End: 11-12-2024 ambulatory Jacinto Katko DO Work Phone: [facility] Work Phone: Start: 11-12-2024 End: 11-12-2024 Patient encounter procedure Jacinto Marianko DO Work Phone: [facility] Work Phone: Start: 10-30-2024 Non-patient / Non-visit Jeffre y Katko DO Work Phone: [facility] Work Phone: Start: 10-29-2024 End: 10-29-2024 ambulatory Jacinto Katko DO Work Phone: [facility] Work Phone: Start: 10-29-2024 End: 10-29-2024 Patient encounter procedure Jacinto Katko DO Work Phone: [facility] Work Phone: Start: 10-20-2024 ambulatory [facility] Start: 10-15-2024 Non-patient / Non-visit Jeffre y Katko DO Work Phone: [facility] Work Phone: Start: 09-16-2024 Non-patient / Non-visit Jeffre y Katko DO Work Phone: [facility] Work Phone: Start: 09-16-2024 End: 09-16-2024 ambulatory [facility] Start: 09-14-2024 End: 09-14-2024 ambulatory Jacinto Fraga [facility] Work Phone: Start: 09-14-2024 End: 09-14-2024 Patient encounter procedure Jacinto Fraga [facility] Work Phone: Start: 09-07-2024 Non-patient / Non-visit Jacinto Kate verduzco [facility] Work Phone: Start: 09-05-2024 Non-patient / Non-visit Jacinto Kate dax HOLLAND [facility] Work Phone: Start: 09-04-2024 End: 09-04-2024 ambulatory Jacinto Dominguez [facility] Work Phone: Start: 09-04-2024 End: 09-04-2024 [facility] Start: 09-04-2024 Non-patient / Non-visit Jacinto Kate dax HOLLAND [facility] Work Phone: Start: 07-08-2024 End: 07-08-2024 ambulatory [facility] Work Phone: Start: 07-08-2024 End: 07-08-2024 Patient encounter procedure [facility] Work Phone: Start: 07-07-2024 End: 07-07-2024 ambulatory [facility] Work Phone: Start: 07-07-2024 End: 07-07-2024 Patient encounter procedure [facility] Work Phone: Start: 06-30-2024 End: 01-07-2025 ambulatory [facility] Work Phone: Start: 06-30-2024 End: 06-30-2024 Patient encounter procedure [facility] Work Phone: Start: 04-06-2024 End: 04-06-2024 ambulatory MD Garrison Bell Work Phone: [facility] Work Phone: Start: 04-06-2024 End: 04-06-2024 Patient encounter procedure MD Garrison Bell Work Phone: [facility] Work Phone: Start: 03-24-2024 Non-patient / Non-visit MD Chelsea Bell Work Phone: [facility] Work Phone: Start: 03-24-2024 End: 03-24-2024 Admission to same day surgery center MD Garrison Bell Work Phone: [facility] Work Phone: Start: 03-24-2024 End: 03-24-2024 ambulatory MD Garrison Bell Work Phone: [facility] Work Phone: Start: 03-23-2024 End: 03-23-[address] [facility] Work Phone: Start: 03-23-2024 End: 03-23-2024 Patient encounter procedure [facility] Work Phone: Start: 03-17-2024 End: 03-17-2024 ambulatory RENETTA NGUYEN Not Available Start: 03-17-2024 End: 03-17-2024 Office outpatient new 20 minutes Renetta Nguyen MD Work Phone: [facility] Comment on above: Seborrheic keratosis (Primary Dx); Neoplasm of unspecified behavior of bone, soft tissue, and skin Start: 03-17-2024 End: 03-17-2024 Bamboo flowssyeda Nguyen MD Work Phone: [facility] Start: 03-17-2024 End: 03-17-2024 Bamboo flowssyeda Nguyen MD Work Phone: [facility] Start: 03-16-2024 Non-patient / Non-visit [facility] Work [facility]: Start: 03-16-2024 End: 03-16-2024 ambulatory [facility] Start: 03-12-2024 End: 03-12-[address] [facility] Work Phone: Start: 03-12-2024 End: 03-12-2024 Patient encounter procedure [facility] Work Phone: Start: 03-10-2024 End: 03-10-[address] [facility] Work Phone: Start: 03-10-2024 End: 03-10-2024 Patient encounter procedure [facility] Work Phone: Start: 01-15-2024 End: 01-15-2024 ambulatory MD Garrison Bell Work Phone: [facility] Work Phone: Start: 01-15-2024 End: 01-15-2024 Patient encounter procedure MD Garrison Bell Work Phone: [facility] Work Phone: Start: 01-09-2024 Non-patient / Non-visit MD Chelsea Bell Work Phone: [facility] Work Phone: Start: 12-30-2023 Non-patient / Non-visit MD Chelsea Bell Work Phone: [facility] Work Phone: Start: 12-09-2023 Non-patient / Non-visit MD Chelsea Bell Work Phone: [facility] Work Phone: Start: 12-04-2023 End: 12-04-2023 ambulatory MD Garrison Bell Work Phone: [facility] Work Phone: Start: 12-04-2023 End: 12-04-2023 Patient encounter procedure MD Garrison Bell Work Phone: [facility] Work Phone: Start: 11-29-2023 Non-patient / Non-visit MD Chelsea Bell Work Phone: [facility] Work Phone: Start: 11-25-2023 End: 11-25-2023 ambulatory [facility] Start: 11-04-2023 Non-patient / Non-visit MD Chelsea Bell Work Phone: [facility] Work Phone: Start: 10-17-2023 End: 10-17-2023 ambulatory MD Garrison Bell Work Phone: [facility] Work Phone: Start: 10-17-2023 End: 10-17-2023 Patient encounter procedure MD Garrison Bell Work Phone: [facility] Work Phone: Start: 10-17-2023 Non-patient / Non-visit MD Chelsea Bell Work Phone: [facility] Work Phone: Start: 10-15-2023 Non-patient / Non-visit MD Chelsea Bell Work Phone: [facility] Work Phone: Start: 10-15-2023 End: 10-15-2023 Admission to same day surgery center MD Garrison Bell Work Phone: [facility] Work Phone: Start: 10-15-2023 End: 10-15-2023 ambulatory MD Garrison Bell Work Phone: [facility] Work Phone: Start: 10-10-2023 End: 10-10-[address] [facility] Work Phone: Start: 10-10-2023 End: 10-10-2023 Patient encounter procedure [facility] Work Phone: Start: 09-04-2023 End: 09-04-2023 Patient encounter procedure [facility] Work Phone: Start: 08-16-2023 Non-patient / Non-visit [facility] Work Phone: Start: 07-15-2023 End: 07-15-2023 ambulatory Garrison Bell Other [employer] Other Start: 07-15-2023 Telephone encounter Garrison Bell [facility] Start: 06-07-2023 End: 06-07-2023 ambulatory Garrison Bell Other [employer] Other Start: 06-07-2023 Telephone encounter Garrison Bell [facility] Start: 06-05-2023 End: 06-05-2023 ambulatory Garrison Bell Other [employer] Other Start: 06-05-2023 Office outpatient vi sit 25 minutes Garrison Bell [facility] Start: 05-28-2023 (Procedure) Boyd Villanueva [facility] Start: 05-28-2023 End: 05-28-2023 Admission to same day surgery center MD Garrison Bell Work Phone: [facility] Work Phone: Start: 05-28-2023 End: 05-28-2023 ambulatory MD Garrison Bell Work Phone: [facility] Work Phone: Start: 05-20-2023 End: 05-20-2023 ambulatory Eric Villanueva Other [employer] Other Start: 05-20-2023 Office outpatient vi sit 25 minutes Eric Felter [facility] [place] Start: 05-07-2023 (Procedure) Short Eric Gilesgiuliano [facility] Start: 05-07-2023 End: 05-07-2023 ambulatory Eric Villanueva Other [employer] Other Start: 05-07-2023 End: 05-07-2023 Admission to same day surgery center MD Garrison Bell Work Phone: [facility] Work Phone: Start: 04-23-2023 End: 04-23-2023 Patient encounter procedure MD Garrison Bell Work Phone: [facility] Start: 04-23-2023 End: 04-23-2023 ambulatory MD Garrison Bell Work Phone: [facility] Work Phone: Start: 04-23-2023 Office outpatient vi sit 25 minutes Eric Villanueva [facility] [place] Start: 03-06-2023 End: 03-06-2023 ambulatory Garrison Bell Other [facility] Other Start: 03-06-2023 Office outpatient vi sit 15 minutes Garrison Bell [facility] Start: 02-28-2023 End: 02-28-2023 ambulatory Eric Villanueva Other [facility] Other Start: 02-28-2023 Office outpatient vi sit 15 minutes Eric Gileser [facility] [place] Start: 02-12-2023 (Procedure) Short Eric Villanueva [facility] Start: 02-12-2023 End: 02-12-2023 Admission to same day surgery center MD Garrison Bell Work Phone: [facility] Work Phone: Start: 02-12-2023 End: 02-12-2023 ambulatory MD Garrison Bell Work Phone: [facility] Work Phone: Start: 02-07-2023 End: 02-07-2023 ambulatory Eric Villanueva Other [facility] Other Start: 02-07-2023 Office outpatient vi sit 25 minutes Eric Villanueva [facility] [place] Start: 01-01-2023 End: 01-01-2023 ambulatory Garrison Bell Other [facility] Other Start: 01-01-2023 Telephone encounter Garrison Bell [facility] Start: 12-31-2022 End: 12-31-2022 ambulatory Garrison Bell Other [facility] Other Start: 12-31-2022 Telephone encounter Garrison Bell [facility] Start: 12-05-2022 End: 12-05-2022 ambulatory Garrison Bell Other [facility] Other Start: 12-05-2022 Office outpatient vi sit 25 minutes Garrison Bell [facility] Start: 11-27-2022 End: 11-27-2022 ambulatory Garrison Bell Other [facility] Other Start: 11-27-2022 Telephone encounter Garrison Bell [facility] Start: 11-06-2022 End: 11-07-[address] GARRISON BELL Facility: Start: 11-05-2022 End: 11-05-2022 ambulatory MD Garrison Bell Work Phone: [facility] Work Phone: Start: 11-05-2022 End: 11-05-2022 Patient encounter procedure MD Garrison Bell Work Phone: [facility] Start: 10-23-2022 (Procedure) Short Eric Villanueva [facility] Start: 10-23-2022 End: 10-23-2022 ambulatory Eric Villanueva Other [facility] Other Start: 10-23-2022 End: 10-23-2022 Admission to same day surgery center MD Garrison Bell Work Phone: [facility] Work Phone: Start: 10-10-2022 End: 10-10-2022 ambulatory Eric Villanueva Other [facility] Other Start: 10-10-2022 Telephone encounter Eric MOHAN [facility] Start: 10-09-2022 End: 10-09-2022 Patient encounter procedure MD Garrison Bell Work Phone: [facility] Start: 10-09-2022 End: 10-09-2022 ambulatory Alka Hankins Other [facility] Other Start: 10-09-2022 Office outpatient ne w 45 minutes Alka Hankins [facility] Start: 09-04-2022 End: 09-04-2022 ambulatory Garrison Bell Other [facility] Other Start: 09-04-2022 Office outpatient vi sit 15 minutes Garrison Bell [facility] Start: 08-24-2022 End: 08-24-2022 ambulatory Eric Villanueva Other [facility] Other Start: 08-24-2022 Telephone encounter Eric MOHAN [facility] Start: 08-22-2022 End: 08-23-2022 ambulatory ZENA PAINTERRY Facility:[facility] Start: 08-22-2022 End: 08-22-2022 Patient encounter procedure ZENA POTTER [facility] Start: 08-14-2022 End: 08-14-2022 ambulatory Eric Villanueva Other [facility] Other Start: 08-14-2022 Office outpatient vi sit 25 minutes Eric Villanueva [facility] [place] Start: 08-07-2022 End: 08-07-2022 Admission to same day surgery center MD Garrison Bell Work Phone: [facility] Work Phone: Start: 08-07-2022 End: 08-07-2022 ambulatory MD Garrison Bell Work Phone: [facility] Work Phone: Start: 07-27-2022 End: 07-27-2022 ambulatory Garrison Bell Other [facility] Other Start: 07-27-2022 Telephone encounter Garrison Bell [facility] Start: 07-26-2022 End: 07-27-[address] GARRISON BELL Facility: Start: 07-17-2022 End: 07-17-2022 ambulatory Eric Villanueva Other [facility] Other Start: 07-17-2022 Telephone encounter Eric Villanueva [facility] Start: 06-19-2022 Adult health examination Eric Villanueva Other [facility] Other Start: 06-19-2022 End: 06-20-[address] GARRISON BELL Facility: Start: 06-10-2022 End: 06-11-[address] GARRISON BELL Facility:[facility] Start: 05-08-2022 End: 05-09-[address] GARRISON BELL Facility:[facility] Start: 04-16-2022 End: 04-16-2022 ambulatory Eric Villanueva Other [facility] Other Start: 04-16-2022 Telephone encounter Eric MOHAN [facility] Start: 03-26-2022 End: 03-26-2022 ambulatory Eric Villanueva Other [facility] Other Start: 03-26-2022 Telephone encounter Eric MOHAN [facility] Start: 03-13-2022 End: 03-13-2022 ambulatory Eric Changiuliano Other [facility] Other Start: 03-13-2022 Telephone encounter Eric MOHAN [facility] Start: 03-12-2022 End: 03-12-2022 ambulatory Eric Villanueva Other [facility] Other Start: 03-12-2022 Office outpatient ne w 45 minutes Eric Villanueva [facility] [place] Start: 03-09-[address] GARRISON BELL Facil ity:[facility] Start: 03-08-2022 End: 03-09-[address] GARRISON BELL Facility:[facility] Start: 02-27-2022 End: 02-27-2022 ambulatory Zena García Other [facility] Other Start: 02-27-2022 Patient encounter procedure Zena García [facility] Start: 02-22-2022 End: 02-22-2022 ambulatory Eric Villanueva Other [facility] Other Start: 02-22-2022 Telephone encounter Eric MOHAN [facility] Start: 02-06-2022 End: 02-06-2022 ambulatory Zena García Other [facility] Other Start: 02-06-2022 Office outpatient vi sit 25 minutes Zenaanna García [facility] Start: 01-24-2022 End: 01-25-[address] GARRISON BELL Facility: Start: 01-03-2022 End: 01-03-2022 ambulatory Jazz Nance Other [facility] Other Start: 01-03-2022 Office outpatient vi sit 25 minutes Jazz Melendezmond [facility] Start: 11-06-2021 End: 11-06-2021 ambulatory Zena Ricky Other [facility] Other Start: 11-06-2021 Office outpatient vi sit 15 minutes Zena Hendrixarney [facility] Start: 09-06-2021 ambulatory ZENA POTTER Facility :[facility] Start: 08-08-2021 End: 08-08-2021 ambulatory Zena Ricky Other [facility] Other Start: 08-08-2021 Office outpatient vi sit 15 minutes Zena Hendrixarney [facility] Start: 03-22-2021 Office outpatient vi sit 15 minutes Zena Hendrixarney [facility] Procedures Date Procedure Procedure Detail Performing Clinician Start: 09-04-2024 Urine culture Jacinto whitney DO Start: 03-24-2024 Epidural injection o f lumbar [...] MD Garrison Bell Work Phone: Appendectomy ZENA ABBEY Cholecystectomy ZENA PER JACLYN Hysterectomy ZENA POTTER Plan of Treatment Date Care Activity Detail Author Start: 09-04-2024 Urine culture [facility] Start: 09-04-2024 Bacteria identified in Urine by Culture Urine Culture [facility] Start: 03-24-2024 [facility] Start: 12-04-2023 Patient referral [facility] Work Phone: Start: 10-17-2023 X-ray of left knee XR knee LT 2V [facility] Start: 10-17-2023 XR Knee - left 2 Views [facility] Start: 10-15-2023 [facility] Start: 05-28-2023 [facility] Start: 05-07-2023 [facility] Start: 02-12-2023 [facility] Start: 10-23-2022 [facility] Start: 08-07-2022 [facility] Comprehensive metabo lic 2000 panel - Serum or Plasma [facility] CT Chest WO and W contrast IV [facility] Dermatopathology exam Dermatopat hology exam Pathology and Cytology Timed Neoplasm of unspecified behavior of bone, soft tissue, and skin Release Upon Ordering for 1 Occurrences starting 03/17/2024 [facility] Work Phone: Comment on above: Release Upon Ordering for 1 Occurrences starting 03/17/2024 Patient Education [facility] Work Phone: Patient referral [facility] Work Phone: Renal function 1999 panel - Serum or Plasma [facility] Renal function 1999 panel - Serum or Plasma [facility] Urine culture [facility] Kidney - bilateral [facility] Thyroid gland [facility] Immunizations Immunization Date Immunization Notes Care Provider Fa [facility] 06-05-2022 Prevnar 20 Eric Villanueva Other [facility] 04-17-2022 COVID-19 Pfizer (Pediatric) Eric Villanueva Other [facility] 04-17-2022 influenza virus vaccine, split virus (incl. purified surface antigen) Eric Villanueva Other [facility] [employer] Other 04-17-2022 influenza virus vaccine, unspecified formulation [facility] 04-14-2021 COVID-19 Vaccine Pfi zer - Documentation Purposes Only Eric Villanueva Other [facility] 04-14-2021 influenza virus vaccine, split virus (incl. purified surface antigen) Eric Villanueva Other [facility] [employer] Other 04-14-2021 influenza virus vaccine, unspecified formulation [facility] 03-24-2021 SARS-CoV-2 (COVID-19 ) Ad26 vaccine, recombinant ZENA POTTER [facility] 03-22-2021 Kenalog -40 mg Zena quintero Other [facility] Other 11-16-2020 Kenalog -40 mg Zena quintero Other [facility] Other 08-22-2020 SARS-CoV-2 (COVID-19 ) Ad26 vaccine, recombinant ZENA POTTER [facility] 07-25-2020 SARS-CoV-2 (COVID-19 ) Ad26 vaccine, recombinant ZENA POTTER [facility] 06-20-2020 zoster vaccine, live Eric Villanueva Other [facility] 01-07-2020 zoster vaccine, live Eric Villanueva Other [facility] 05-05-2019 influenza virus vaccine, split virus (incl. purified surface antigen) Eric Villanueva Other [employer] Other 05-05-2019 influenza virus vaccine, unspecified formulation [facility] 04-07-2018 influenza virus vaccine, split virus (incl. purified surface antigen) Eric Villanueva Other [facility] Other 04-07-2018 influenza virus vaccine, unspecified formulation [facility] 03-21-2016 diphtheria, tetanus toxoids and acellular pertussis vaccine, unspecified formulation Eric Villanueva Other [facility] 12-01-2015 pneumococcal polysaccharide vaccine, 23 valent Eric Villanueva Other [facility] 03-23-2013 pneumococcal conjuga te vaccine, 13 valent Eric Villanueva Other [facility] pneumococcal Conjuga te, unspecified formulation; Translations: [Need for prophylactic vaccination against Streptococcus pneumoniae (pneumococcus)] Eric Villanueva Other [facility] Other Payers Date Payer Category Payer Unknown [employer] [id number] 2021-Present [address] [place] [address] [id number] 2015 Medicare MEDICARE MEDICAR E PART B [id number] 2015-Present [address] [address] [place] [address] Medicare [id number] 1959 Medicare [id number] 1959 Unknown [id number] 1950 Unknown [id number] [id number]. 727 1950 Unknown [id number] [id number]. 593 1950 Unknown [id number] 2.16.840.1.123112.3.579.2. 593 1950 Unknown [id number] [id number]. 593 1950 Unknown [id number] [id number]. 593 1950 Unknown [id number] 2.16.840.1.878513.3.579.2. 593 1950 Unknown [id number] 2.16.840.1.516332.3.579.2. 593 1950 Unknown [id number] 2.16.840.1.294393.3.579.2. 593 1950 Unknown [id number] 2.16.840.1.788568.3.579.2. 593 1950 Unknown [id number] 2.16.840.1.557331.3.579.2. 593 1950 Unknown [id number] [id number]. 1259 Private Health Insurance [employer] Claims [id number] Self-pay Self Pay [id number] Unknown [employer] [id number] Unknown HCAP/HFA/FAP Active [id number] Social History Date Type Detail Facility Unknown if ever smoked [facility] Other Start: 03-17-2024 Sex Assigned At F [facility] Start: 08-07-2022 End: 09-07-2024 Tobacco smoking status [facility] Never smoked tobacco (finding) [facility] Start: 1950 Sex Assigned At Female F [facility] Tobacco smoking status Never [facility] Start: 03-17-2024 Tobacco use and exposure Smokeless tobacco non-user [facility] Start: 03-17-2024 History of Social function [facility] Start: 1950 Sex assigned at Not on file [facility] Tobacco smoking status [facility] Tobacco smoking consumption unknown [facility] Start: 06-30-2024 End: 11-12-2024 Sex Female (finding) [facility] Medical Equipment Procedure Code Equipment Code Equipment [...] Desired Activity /State Clinical Notes 03-22-2021 to 11-19-2024 Note Date & Type Note Facility 11-19-2024 Note [facility] Cardiology Clinic Note Chief Complaint: Patient here for 1 mo follow up. Patient states she seen the jet handler last week no change with kidneys. Patient states she has fatigue and SOB. Patient denies chest pain. HPI: Libra Noonan is a 73 y.o. female Still short of breath with exertion. No chest pain. No orthopnea or paroxysmal nocturnal dyspnea. No worsening lower extremity edema. Also complains of a cough productive of phlegm and chills. No fevers. Has had multiple episodes of bronchitis and pneumonia in the past. 10/20/2024 Still very short of breath. She has good days and bad days. She could not tolerate 20 mg of Lasix as it made her significantly dizzy. She has not been taking lisinopril for the same reason. She was on Farxiga at one point but this caused severe genital infection leading to her hospitalization. She complains of 15 pound weight gain since her last visit, worsening lower extremity edema. She sleeps semireclined. She denies paroxysmal external dyspnea. Cardiology ROS: Review of Systems Constitutional: Positive for malaise/fatigue and weight gain (15# since 09/16/2024). Cardiovascular: Positive for dyspnea on exertion (stable). Respiratory: Positive for sleep disturbances due to breathing. Allergic/Immunologic: Positive for environmental allergies. All other systems reviewed and are negative. Past Medical History She has a past medical history of Abnormal ECG, CHF (congestive heart failure) ([facility]), Chronic kidney disease, Coronary artery disease, Diabetes mellitus ([facility]), Hyperlipidemia, and Hypertension. Surgical History She has [...] this was a defibrillator Stroke Father Allergies Acetaminophen, Lisinopril, Metformin, Nitrofurantoin, Propoxyphene, Adhesive tape-silicones, Oxycodone-acetaminophen, and Propoxyphene n-acetaminophen Medications [...] Disp: 60 tablet, Rfl: 1 carvedilol (Coreg) 12.5 mg tablet, Take 1 tablet (12.5 mg) by mouth with breakfast and with evening meal., Disp: 180 tablet, Rfl: 3 carvedilol (Coreg) 25 mg tablet, Take 1 [...] (10 mg) by mouth once daily as directed., Disp: 90 tablet, Rfl: 3 fexofenadine (Nevaeh) 180 mg tablet, Take 180 mg by mouth in the morning. As needed, Disp: , Rfl: furosemide (Lasix) 20 mg tablet, Take 1 tablet (20 mg) by mouth in the morning. (Patient taking differently: Take 10 mg by mouth in the morning.), Disp: 90 tablet, Rfl: 0 glipiZIDE (Glucotrol) 5 mg tablet, Take 5 mg by mouth in the morning., Disp: , Rfl: insulin NPH and regular human (NovoLIN) 100 unit/mL (70-30) injection, Inject under the skin before breakfast and before evening meal., Disp: , Rfl: lisinopril 5 mg tablet, Take 1 tablet (5 mg) by mouth in the morning. (Patient not taking: Reported on 03/16/2024), Disp: 90 tablet, Rfl: 3 sertraline (Zoloft) 50 mg tablet, Take 1 tablet by mouth in the morning., Disp: , Rfl: Last Recorded Vitals BP 103/62 (BP Location: Left arm, Patient Position: Sitting) Pulse 87 Ht 1.575 m (5' 2 ) Wt (!) 146 kg (321 lb) SpO2 95% BMI 58.71 kg/m??? Physical Examination: GENERAL: alert and oriented [...] symmetric in bilateral upper and lower extremities. PSYC (more content not included)... [facility] 11-12-2024 Evaluation note Diagnosis Onset Date Resolution Anemia of renal disease acute M 2024 12:30pm CKD (chronic kidney disease) stage 3, GFR 30-59 ml/min acute November 12, 2024 12:30pm Hypertensive chronic kidney disease with stage 1 through stage 4 chronic ki acute October 232024 12:30pm Secondary hyperparathyroidism acute November 12 12:30pm Type 2 diabetes mellitus with diabetic chronic kidney disease acute November 12, 2024 12:30pm [facility] Work Phone: [phone] Chief Complaint: Patient here for 1 mo follow up. Milton Green CNP increased lasix to 20mg daily last month. She is only taking 10mg daily because it made her dizzy. Feels ok with the lower dose. Had repeat labs last week. Patient is up 15# since last visit but denies increase in SOB. Chest pain has resolved. Denies palpitations and LE edema. HPI: Libra Noonan is a 73 y.o. female Still short of breath with exertion. No chest pain. No orthopnea or paroxysmal nocturnal dyspnea. No worsening lower extremity edema. Also complains of a cough productive of phlegm and chills. No fevers. Has had multiple episodes of bronchitis and pneumonia in the past. 10/20/2024 Still very short of breath. She has good days and bad days. She could not tolerate 20 mg of Lasix as it made her significantly dizzy. She has not been taking lisinopril for the same reason. She was on Farxiga at one point but this caused severe genital infection leading to her hospitalization. She complains of 15 pound weight gain since her last visit, worsening lower extremity edema. She sleeps semireclined. She denies paroxysmal external dyspnea. Cardiology ROS: Review of Systems Constitutional: Positive for malaise/fatigue and weight gain (15# since 09/16/2024). Cardiovascular: Positive for dyspnea on exertion (stable). Respiratory: Positive for cough, sleep disturbances due to breathing, sputum production and wheezing. Allergic/Immunologic: Positive for environmental allergies. All other systems reviewed and are negative. Past Medical History She has a past medical history of Coronary artery disease, Diabetes mellitus ([facility]), Hyperlipidemia, and Hypertension. Surgical History She has [...] Disp: 60 tablet, Rfl: 1 carvedilol (Coreg) 12.5 mg tablet, Take 1 tablet (12.5 mg) by mouth with breakfast and with evening meal., Disp: 180 tablet, Rfl: 3 carvedilol (Coreg) 25 mg tablet, Take 1 [...] (10 mg) by mouth once daily as directed., Disp: 90 tablet, Rfl: 3 fexofenadine (Nevaeh) 180 mg tablet, Take 180 mg by mouth in the morning. As needed, Disp: , Rfl: furosemide (Lasix) 20 mg tablet, Take 1 tablet (20 mg) by mouth in the morning., Disp: 90 tablet, Rfl: 0 glipiZIDE (Glucotrol) 5 mg tablet, Take 5 mg by mouth in the morning., Disp: , Rfl: insulin NPH and regular human (NovoLIN) 100 unit/mL (70-30) injection, Inject under the skin before breakfast and before evening meal., Disp: , Rfl: lisinopril 5 mg tablet, Take 1 tablet (5 mg) by mouth in the morning. (Patient not taking: Reported on 03/16/2024), Disp: 90 tablet, Rfl: 3 ondansetron ODT (Zofran-ODT) 4 mg disintegrating tablet, DISSOLVE 1 TABLET on the tongue EVERY 8 HOURS NEEDED FOR NAUSEA and FOR VOMITING, Disp: , Rfl: sertraline (Zoloft) 50 mg tablet, Take 1 tablet by mouth in the morning., Disp: , Rfl: True Metrix Glucose Meter [facility] [place] See administration instructions., Disp: , Rfl: Last Recorded Vitals BP 140/82 (BP Location: Left wrist, Patient Position: Sitting) Pulse 83 Ht 1.575 m (5' 2 ) Wt (!) 146 kg (321 lb) SpO2 96% BMI 58.71 kg/m??? Physical Examination: GENERAL: alert and oriented x3, well developed, in no acute distress. HEAD: atraumatic, normocephalic. EYES: LYNNETTE, EOMI. NECK: trachea midline, no JVD present, no carotid bruits present. CARDIAC: S1, S2 present. RRR. No murmur, rubs, or gallops. RESPIRATORY: CTAB, no increased effort of breathing, no rales, rhonchi, or (more content not included)...[facility]03-26-2025 Note SUBJECTIVE Reason for Visit: Libra Noonan is a 73 y.o. year old female patient being seen for 6-month follow-up office visit. HPI: Libra Noonan is a 73 y.o. year old female with significant medical history of CAD, HFpEF, CKD, chronic UTIs, and hypertension. She was recently evaluated emergency department on 09/04/2024 for chief complaint of dizziness. Per ED report, she had been feeling this way for about 3 days and she was diaphoretic. She reported a near syncopal episode the prior night while she was sitting but did not pass out. She had denied any chest pain, fever, but reported a cough of about a month duration. Chest x-ray was negative for edema, pneumonia, or bronchial inflammation. She was ultimately diagnosed with a UTI and discharged. 09/16/2024 office visit: Patient was seen and evaluated in the office today. She recently visited the emergency department, where she was diagnosed with a UTI. Notably, she also had a UTI in June. She reports experiencing dyspnea on exertion with minimal activity. She denies chest pain, palpitations, lightheadedness, or dizziness. She states that she is currently taking half a tablet of Lasix (10 mg) every other day. She also reports that she is scheduled for a follow-up appointment with her jet handler in October. 03/16/2024 office visit (Dr. Torres): Chief Complaint: Patient here for 3 mo follow up CAD, HFpEF, and hypertension. She has her first apt with nephrology soon. Daughter states her GALLAGHER is worsening, but patient states it's unchanged. Patient denies LE edema and palpitations. Still has the same ache in her chest. Says BP's at home have been in normal range s/p getting new arm cuff. Still short of breath with exertion. No chest pain. No orthopnea or paroxysmal nocturnal dyspnea. No worsening lower extremity edema. Also complains of a cough productive of phlegm and chills. No fevers. Has had multiple episodes of bronchitis and pneumonia in the past. Past Medical History: Diagnosis Date Coronary artery disease Diabetes mellitus ([facility]) Hyperlipidemia Hypertension Past Surgical History: Procedure Laterality Date CARDIAC CATHETERIZATION 03/23/2022 CHOLECYSTECTOMY HYSTERECTOMY TOTAL KNEE ARTHROPLASTY Patient Active Problem List Diagnosis Abnormal cardiovascular stress test Coronary artery disease Hypertension BMI 50.0-59.9, adult ([facility]) Diabetes mellitus ([facility]) Disorder of kidney Dyspnea on exertion Essential hypertension, benign Foraminal stenosis of lumbar region Glaucoma High cholesterol Increased frequency of urination Myalgia and myositis, unspecified Menopausal problem Recurrent UTI Sciatica Symptoms involving urinary system Abscess or cellulitis of scalp Acute pyelonephritis Sepsis ([facility]) Chest pain Chronic pain Degenerative disc disease, lumbar Hair loss Left knee pain Mass of right axilla Mass of right chest wall Other spondylosis with radiculopathy, lumbar region Primary osteoarthritis of left knee Type 2 diabetes mellitus with hyperglycemia ([facility]) Anemia CKD (chronic kidney disease) stage 3, GFR 30-59 ml/min ([facility]) family history includes Heart failure in her mother; Rheumatic fever in her mother; Stroke in her father and mother; cardiac pacemaker in her mother. Social History Tobacco Use Smoking status: Never Smokeless tobacco: Never Substance Use Topics Alcohol use: Not Currently OBJECTIVE Visit Vitals BP 124/78 (BP Location: Right wrist, Patient Position: Sitting) Pulse 75 Ht 1.575 m (5' 2 ) Wt (!) 139 kg (306 lb) SpO2 98% BMI 55.97 kg/m??? OB Status Postmenopausal Smoking Status Never BSA 2.47 m??? Physical Exam Constitutional: General Appearance: well-developed, appears stated age. Level of Distress: no acute distress. Neck: Jugular Veins: normal jugular venous pressure. Lungs: Auscultation: no rales or rhonchi and normal breath sounds. Cardiovascular: Rate And Rhythm: regular Heart Sounds: normal S1 and s2; Systolic Murmur: not heard. Diastolic Murmur: not heard. Extremities: Trace LE edema Peripheral Pulses: Pulses: full and equal in all extremities except if noted. Abdomen: Inspection and Palpation: non distended or tender and soft. Musculoskeletal: Inspection: no joint tenderness or swelling. Neurologic: Gait: normal gait. Psychiatric: Mental Status: alert and normal affect. Skin: Inspection and Palpation: warm and dry. Allergies: Allergies Allergen Reactions Adhesive Tape-Silicones carrion skin Oxycodone-Acetaminophen GI intolerance and Rash Propoxyphene N-Acetaminophen GI intolerance and Rash Outpatient Medications: Current Outpatient Medications Medication Instructions albuterol 2.5 mg /3 mL (0.083 %) nebulizer solution INHALE 1 (ONE) vial via NEBULIZER FOUR TIMES DAILY NEEDED aspirin 81 mg, oral, Daily atorvastatin (LIPITOR) 80 mg, oral, Nightly bumetanide (BUMEX) (more content not included)...[facility]03-24-[facility]25 Evaluation note* Diagnosis Onset Date Resolution Status Admit Date Anemia of renal disease acute [facility] 2024 10:54am CKD (chronic kidney disease) stage 3, GFR 30-59 ml/min acute September 14, 2024 10:54am Right thyroid nodule acute Tim h 2024 10:54am Type 2 diabetes mellitus wit h hyperglycemia acute September 14, 2024 10:54am UTI (urinary tract infection) inacti ve September 14, 2024 10:54am CKD (chronic kidney disease) stage 3, GFR 30-59 ml/min acute October 11:25am Type 2 diabetes mellitus wit h diabetic chronic kidney disease acute October 29, 2024 11:25am [facility] Work Phone: 1(249) 341-893403-24-2025 Evaluation note* Diagnosis Onset Date Resolution Status Admit Date Anemia of renal disease acute [facility] 2024 10:54am CKD (chronic kidney disease) stage 3, GFR 30-59 ml/min acute September 14, 2024 10:54am Right thyroid nodule acute Tim h 2024 10:54am Type 2 diabetes mellitus wit h hyperglycemia acute September 14, 2024 10:54am UTI (urinary tract infection) inacti ve September 14, 2024 10:54am Adult BMI 50.0-59.9 kg/sq m acute October 29, 2024 11:25am CKD (chronic kidney disease) stage 3, GFR 30-59 ml/min acute October 29 11:25am Type 2 diabetes mellitus wit h diabetic chronic kidney disease acute October 29, 2024 11:25am Anemia of renal disease acute M 2024 12:30pm CKD (chronic kidney disease) stage 3, GFR 30-59 ml/min acute November 12 12:30pm Hypertensive chronic kidney disease with stage 1 through stage 4 chronic ki acute November 12, 2024 12:30pm Secondary hyperparathyroidism acute November 12, 2024 12:30pm Type 2 diabetes mellitus wit h diabetic chronic kidney disease acute November 12, 2024 12:30pm [facility] Work Phone: 1(172) 833-117301-07-2025 Evaluation note* Diagnosis Onset Date Resolution Status Admit Date Chronic pain acute June 30, 2024 2:41pm Degenerative disc disease, lumbar acute June 30 2:41pm Spondylosis without myelopat hy or radiculopathy, lumbosacral region acute June 30 2:41pm Left carpal tunnel syndrome acute July 07, 2024 1:40pm Right hand pain acute June 242024 1:40pm Trigger finger, right index finger acute July 07 1:40pm [facility] Work Phone: 1(637) 805-477901-07-2025 Evaluation note* Diagnosis Onset Date Resolution Status Admit Date Chronic pain acute June 30, 2024 2:41pm Degenerative disc disease, lumbar acute June 30 2:41pm Spondylosis without myelopat hy or radiculopathy, lumbosacral region acute June 30 2:41pm Left carpal tunnel syndrome acute July 07, 2024 1:40pm Right hand pain acute June 242024 1:40pm Trigger finger, right index finger acute July 07 1:40pm Anemia of renal disease acute J anuary 2024 11:25am Hypertensive chronic kidney disease with stage 1 through stage 4 chronic ki acute July 08, 2024 11:25am Type 2 diabetes mellitus wit h diabetic chronic kidney disease acute July 08, 2024 11:25am Type 2 diabetes mellitus wit h hyperglycemia acute July 08 11:25am Urinary frequency acute July 08, 2024 11:25am [facility] Work Phone: 1(590) 805-425401-07-2025 Evaluation note* Diagnosis Onset Date Resolution Status Admit Date Chronic pain acute June 30, 2024 2:41pm Degenerative disc disease, lumbar acute June 30 2:41pm Spondylosis without myelopat hy or radiculopathy, lumbosacral region acute June 30 2:41pm Left carpal tunnel syndrome acute July 07, 2024 1:40pm Right hand pain acute June 242024 1:40pm Trigger finger, right index finger acute July 07 1:40pm Anemia of renal disease acute J anuary 2024 11:25am Hypertensive chronic kidney disease with stage 1 through stage 4 chronic ki acute July 08, 2024 11:25am Type 2 diabetes mellitus wit h diabetic chronic kidney disease acute July 08, 2024 11:25am Type 2 diabetes mellitus wit h hyperglycemia acute July 08 11:25am Urinary frequency acute July 08, 2024 11:25am Anemia of renal disease acute M arch 2024 10:54am Right thyroid nodule acute Tim h 2024 10:54am [facility] Work Phone: 1(854) 257-420710-14-2024 Evaluation note* Diagnosis Onset Date Resolution Status Admit Date Anemia acute April 06, 2024 11:26am Chronic depression acute Octobe r 2023 11:26am CKD (chronic kidney disease) stage 3, GFR 30-59 ml/min acute Octobe r 2023 11:26am Type 2 diabetes mellitus wit h hyperglycemia acute April 06 11:26am Chronic pain acute June 30, 2024 2:41pm Degenerative disc disease, lumbar acute June 30 2:41pm Spondylosis 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..[facility]04-[facility] Evaluation note* Encounter Date Diagnosis Assessment Notes Treatment Notes Treatment Clinical Notes Jun, Mixed hyperlipidemia (ICD-10 - E78.2) [facility] Other 12-13-2023 Evaluation note* Encounter Date Diagnosis [...] K52.9) declines GI referral at this time. [facility] Other 11-27-2023 Evaluation note* Encounter Date Diagnosis [...] Above note written by Arian Alanis MA, Net Programmer. Edited and approved by Dr. Eric Villanueva MD. [facility] Other 10-31-2023 Evaluation note* Encounter Date Diagnosis Assessment Notes [...] note writ ten by Emi Gutierrez LPN, Net Programmer. Edited and approved by Dr. Eric Villanueva MD. [facility] Other 09-13-2023 Evaluation note* Encounter Date Diagnosis Assessment Notes Treatment Notes Treatment Clinical Notes Feb, Type 2 diabetes mellitus with hyperglycemia (ICD-10 - E11.65) Goal: Maintain A1c below 7.0% by being compliant with prescribed medications, diet & exercise plan prior to f/u visit. Laboratory results were reviewed with patient. STATUS: New/continous Reviewed glucose of 249 - will increase dose of glipizide. [facility] Other 09-07-2023 Evaluation note* Encounter Date Diagnosis [...] note writ ten by Emi Gutierrez LPN, Net Programmer. Edited and approved by Dr. Eric Villanueva MD. [facility] Other 08-22-2023 [facility] Evaluation note* Encounter Date Diagnosis Assessment Notes [...] note writ ten by Arian Alanis MA, Net Programmer. Edited and approved by Dr. Eric Villanueva MD. [facility] Other 07-10-2023 Evaluation note* Encounter Date Diagnosis Assessment Notes Treatment Notes Treatment Clinical Notes Dec, Dysuria (ICD-10 - R30.0) [facility] Other 06-14-2023 Evaluation note* Encounter Date Diagnosis [...] home. Discussed ER if symptoms worsen. 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 Aug, FPC (current) use of insulin (ICD-10 - Z79.4) Aug, Essential (primary) hypertension (ICD-10 - I10) Pt will have labs before next visit. Continue present meds for chronic problem. [facility] Other 03-03-2023 Evaluation note* Encounter Date Diagnosis Assessment Notes Treatment Notes Treatment Clinical Notes Aug, Other spondylosis with radiculopathy, lumbar region (ICD-10 - M47.26) [facility] Other 02-21-2023 Evaluation note* Encounter Date Diagnosis [...] note writ ten by Emi Gutierrez LPN, Net Programmer. Edited and approved by Dr. Eric Villanueva MD. [facility] Other 02-03-2023 NotePROCEDURE: XR HIP RT 2 [...] authenticated by: MIGUEL ANGEL CABALLERO Date: 2022-07-27 09:17[facility] Evaluation [facility]* Encounter Date Diagnosis Assessment Notes Treatment Notes Treatment Clinical Notes Jun, Other spondylosis with radiculopathy, lumbar region (ICD-10 - M47.26) [facility] Other 10-24-2022 Evaluation note* Encounter Date Diagnosis Assessment Notes Treatment Notes Treatment Clinical Notes Mar, Other spondylosis with radiculopathy, lumbar region (ICD-10 - M47.26) [facility] Other 09-19-2022 Evaluation note* Encounter Date Diagnosis [...] Above note written by Emi Gutierrez LPN, Net Programmer. Edited and approved by Dr. Eric Villanueva [...] negative findings were considered in medical decision-making. [facility] Other 09-06-2022 Evaluation note* Encounter Date Diagnosis Assessment Notes Treatment Notes Treatment Clinical Notes Feb, Primary osteoarthritis of left knee (ICD-10 - M17.12) Feb, Acute pain of left knee (ICD-10 - M25.562) [facility] Other 08-16-2022 Evaluation note* Encounter Date Diagnosis [...] pain of left knee (ICD-10 - M25.562) [facility] Other 07-13-2022 Evaluation note* Encounter Date Diagnosis [...] the ER for worsening symptoms or concerns [facility] Other 05-16-2022 Evaluation note* Encounter Date Diagnosis [...] pain of left knee (ICD-10 - M25.562) [facility] Other 02-15-2022 Evaluation note* Encounter Date Diagnosis [...] total right knee replacement (ICD-10 - Z96.651) [facility] Other 09-29-2021 Evaluation note* Encounter Date Diagnosis [...] total right knee replacement (ICD-10 - Z96.651) [facility] Other Evaluation + Plan note No data available for this section [facility] evaluation noteNo InformationNort [employer], [employer] Other Evaluation noteNo assessment information available [facility] Work Phone: Evaluation note* Diagnosis Onset Date Resolution Status Hair loss acute Hypercholesteremia acute Left-sided chest pain acute Mass of right axilla acute Mass of right chest wall acu te Type 2 diabetes mellitus with hyperglycemia acute Chronic pain acute Degenerative disc disease, lumbar acute Other spondylosis with radiculopathy, lumbar region acute [facility] Work Phone: Evaluation note* Diagnosis Onset Date Resolution Status Hair loss acute Hypercholesteremia acute Left-sided chest pain acute Mass of right axilla acute Mass of right chest wall acu te Type 2 diabetes mellitus with hyperglycemia acute Chronic pain acute Degenerative disc disease, lumbar acute Other spondylosis with radiculopathy, lumbar region acute Left knee pain acute Primary osteoarthritis of left knee acute [facility] Work Phone: evaluation note* Diagnosis Onset Date Resolution Status Chronic pain acute Degenerative disc disease, lumbar acute Other spondylosis with radiculopathy, lumbar region acute Left knee pain acute Primary osteoarthritis of left knee acute Anemia acute CKD (chronic kidney disease) stage 3, GFR 30-59 ml/min acute [facility] Work Phone: Evaluation note* Diagnosis Onset Date Resolution Status Left knee pain acute Primary osteoarthritis of left knee acute Anemia acute CKD (chronic kidney disease) stage 3, GFR 30-59 ml/min acute Type 2 diabetes mellitus with hyperglycemia acute Chronic pain acute Degenerative disc disease, lumbar acute Other spondylosis with radiculopathy, lumbar region acute [facility] Work Phone: Evaluation note* Diagnosis Onset Date Resolution Status Chronic pain acute Degenerative disc disease, lumbar acute Other spondylosis with radiculopathy, lumbar region acute Left knee pain acute Primary osteoarthritis of left knee acute [facility] Work Phone: Evaluation note* Diagnosis Onset Date Resolution Status Chronic pain acute Degenerative disc disease, lumbar acute Other spondylosis with radiculopathy, lumbar region acute Left knee pain acute Primary osteoarthritis of left knee acute Chronic pain acute Degenerative disc disease, lumbar acute Other spondylosis with radiculopathy, lumbar region acute [facility] Work Phone: Evaluation note* Diagnosis Onset [...] disease) stage 3, GFR 30-59 ml/min acute [id number] acute Secondary hyperparathyroidism acute Type 2 diabetes mellitus wit h diabetic chronic kidney disease acute [facility] Work Phone: Evaluation note* Diagnosis Seborrheic [...] wisdom teeth extract Hospitalization History see above [facility] Other [facility] Narrative - Reported* Type Description Date Medical History Diabetes Medical History Hypertension Medical History Hypercholesteremia Medical History chronic depression Medical History anxiety Surgical History tonsillectomy Surgical History appendectomy Surgical History cholecystectomy Surgical History knee replacement Surgical History hysterectomy Surgical History laparoscopy Surgical History carpal tunnel release Surgical History wisdom teeth extract Hospitalization History see above Hospitalization History [facility] 2021 [facility] Other [facility] Narrative - Reported* Type Description Date Medical History Diabetes Medical History Hypertension Medical History Hypercholesteremia Medical History chronic depression Medical History anxiety Surgical History tonsillectomy Surgical History appendectomy Surgical History cholecystectomy Surgical History knee replacement Surgical History hysterectomy Surgical History laparoscopy Surgical History carpal tunnel release Surgical History wisdom teeth extract Surgical History Epiderral 07/2022 Hospitalization History see above Hospitalization History [facility] 2021 [facility] Other Hospital Discharge instructions No data available for this section [facility] Hospital Discharge instructionsAmbulatory Orders* Referral to Nephrology Time Frame: 12/04/23, Location: None Selected [facility] Work Phone: Progress note No data available for this section [facility] reason for referral (narrative)No reason for referral information availableBarberton [facility] Work Phone: Reason for Referral Reason *Waiting for appt Uncontrolled type 2 diabetes - on ; A1Cs will be scanned in from 2021. Diagnosis 1 Type 2 diabetes jayda itus with hyperglycemia (E11.65) Referral Organization [facility] linalbert Referring Provider First Name Garrison Referring Provider Last Name Ray Referring Provider Specialty Family Medi cine Referred Organization [facility] Endocrinology Referred Provider Akash Hendrix Referred Address [address] [place],[address] Referred Provider Specialty Nurse Eber chavarria Referral Priority Routine General Notes Aylin Muñoz 03:32:36 PM >received today, sent p2p Reason *FU 02/21 Schedule with Ellen Villanueva for possible lumbar injections. Diagnosis 1 Primary osteoarthrit is of left knee (M17.12) Diagnosis 2 Spondylolisthesis of lumbar region (M43.16) Referral Organization [facility] Referring Provider First Name Zena Referring Provider Last Name Ricky Referring Provider Specialty Nurse Tj carrasquillo Referred Organization [facility] Pain Managemen milena Wood Referred Provider Eric Villanueva Referred Address [address] [place],[address] Referred Provider Specialty Pain Medicin e Referral [...] kidney disease) stage 3, GFR 30-59 ml/min [id number] Secondary hyperparathyroidism Type 2 diabetes mellitus with [...] kidney disease) stage 3, GFR 30-59 ml/min [id number] Secondary hyperparathyroidism Type 2 diabetes mellitus with [...] kidney disease) stage 3, GFR 30-59 ml/min [id number] Secondary hyperparathyroidism Type 2 diabetes mellitus with [...] :40pm Trigger finger, right index finger Janua ry 2024 1:40pm Chief Complaint Admit Date 3 MO F/U LUMB EPI June 30, 2024 2: 41pm OP SP LT WRIST PAIN July 07, 2024 1 :40pm 3 month f/u-HIGH RISK July 08, 2024 11:25am Chief Complaint Admit Date 3 MO F/U LUMB EPI June 30, 2024 2: 41pm OP SP LT WRIST PAIN July 07, 2024 1 :40pm 3 month f/u-HIGH RISK July 08, 2024 11:25am Unknown September 04, 2024 9:3 5pm Reason for Visit Admit Date Chronic pain June 30, 2024 2: 41pm Degenerative disc disease, lumbar Januar y 2024 2:41pm Spondylosis without myelopat hy or radiculopathy, lumbosacral region June 30, 2024 2:41pm Left carpal tunnel syndrome June 1:40pm Right hand pain July 07, 2024 1 :40pm Trigger finger, right index finger Janua ry 2024 1:40pm Anemia of renal disease July 08 11:25am Hypertensive chronic kidney disease with stage 1 through stage 4 chronic ki July 08, 2024 11:25am Type 2 diabetes mellitus wit h diabetic chronic kidney disease July 08, 2024 11:25am Type 2 diabetes mellitus with hyperglyce rehana July 08, 2024 11:25am Urinary frequency July 08, 2024 1 1:25am Chief Complaint Admit Date 3 MO F/U LUMB EPI June 30, 2024 2: 41pm OP SP LT WRIST PAIN July 07, 2024 1 :40pm 3 month f/u-HIGH RISK July 08, 2024 11:25am Unknown September 04, 2024 9:3 5pm Amb Documentation September 07, 2024 11: 35am Amb Documentation September 07, 2024 11: 47am TBH; UTI, PRAMOD-HIGH RISK September 14, 2024 10:54am Reason for Visit Admit Date Chronic pain June 30, 2024 2: 41pm Degenerative disc disease, lumbar Januar y 2024 2:41pm Spondylosis without myelopat hy or radiculopathy, lumbosacral region June 30, 2024 2:41pm Left carpal tunnel syndrome June 1:40pm Right hand pain July 07, 2024 1 :40pm Trigger finger, right index finger Janua 2024 1:40pm Anemia of renal disease July 08 11:25am Hypertensive chronic kidney disease with stage 1 through stage 4 chronic ki July 08, 2024 11:25am Type 2 diabetes mellitus wit h diabetic chronic kidney disease July 08, 2024 11:25am Type 2 diabetes mellitus with hyperglyce [facility] July 08, 2024 11:25am Urinary frequency July 08, 2024 1 1:25am Anemia of renal disease September 14, 2024 10:54am Right thyroid nodule September 14, 2024 10 :54am Chief Complaint Admit Date Unknown September 04, 2024 9:3 5pm Amb Documentation September 07, 2024 11: 35am Amb Documentation September 07, 2024 11: 47am TBH; UTI, PRAMOD-HIGH RISK September 14, 2024 10:54am discuss weight loss med October 29, 2024 11 :25am Reason for Visit Admit Date Anemia of renal disease September 14, 2024 10:54am CKD (chronic kidney disease) stage 3, GF R 30-59 ml/min September 14, 2024 10:54am Right thyroid nodule September 14, 2024 10 :54am Type 2 diabetes mellitus with hyperglyce [facility] September 14, 2024 10:54am UTI (urinary tract infection) August 10:54am CKD (chronic kidney disease) stage 3, GF R 30-59 ml/min October 29, 2024 11:25am Type 2 diabetes mellitus wit h diabetic chronic kidney disease October 29, 2024 11:25am Chief Complaint Admit Date Unknown September 04, 2024 9:3 5pm Amb Documentation September 07, 2024 11: 35am Amb Documentation September 07, 2024 11: 47am TBH; UTI, PRAMOD-HIGH RISK September 14, 2024 10:54am discuss weight loss med October 29, 2024 11 :25am Renal F/U November 12, 2024 12:30 pm Reason for Visit Admit Date Anemia of renal disease September 14, 2024 10:54am CKD (chronic kidney disease) stage 3, GF R 30-59 ml/min September 14, 2024 10:54am Right thyroid nodule September 14, 2024 10 :54am Type 2 diabetes mellitus with hyperglyce rehana September 14, 2024 10:54am UTI (urinary tract infection) August 10:54am Adult BMI 50.0-59.9 kg/sq m October 29 11:25am CKD (chronic kidney disease) stage 3, GF R 30-59 ml/min October 29, 2024 11:25am Type 2 diabetes mellitus wit h diabetic chronic kidney disease October 29, 2024 11:25am Anemia of renal disease November 12, 2024 1 2:30pm CKD (chronic kidney disease) stage 3, GF R 30-59 ml/min November 12, 2024 12:30pm Hypertensive chronic kidney disease with stage 1 through stage 4 chronic ki November 12, 2024 12:30pm Secondary hyperparathyroidism November 12, 2024 12:30pm Type 2 diabetes mellitus wit h diabetic chronic kidney disease November 12, 2024 12:30pm Chief Complaint Admit Date Renal F/U November 12, 2024 12:30 pm Wellness-HIGH RISK February 09, 2025 11 :27am Reason for Visit Admit Date Anemia of renal disease November 12, 2024 1 2:30pm CKD (chronic kidney disease) stage 3, GF R 30-59 ml/min November 12, 2024 12:30pm Hypertensive chronic kidney disease with stage 1 through stage 4 chronic ki November 12, 2024 12:30pm Secondary hyperparathyroidism November 12, 2024 12:30pm Type 2 diabetes mellitus with diabetic c hronic kidney disease November 12, 2024 12:30pm Family History Relationship Condition Age at Onset [...] Advance Directives No August 02, 2022 4:31pm Advance Directive Response Recorded Date/ Time Advance Directives No September 07 025 11:46am Summary Purpose Additional Source Comments REASON FOR VISIT (unrecogniz ed section and content) Reason Comments Suspicious Skin Lesion Care Teams (unrecognized sec tion and content) Team Status: Active Member Role Status Dates Garrison Bell MD Primary Care Provider Active Team Status: Inactive Member Role Status Dates Garrison Bell MD Primary Care Provider Active Start: November 12, 2024 End: November 12, 2024 Lexus Brush MD Attending Provider Active Start : November 12, 2024 End: November 12, 2024 Team Status: Inactive Member Role Status Dates Garrison Bell MD Primary Care Provider Active Start: February 09, 2025 End: February 09, 2025 Garrison Bell MD Attending Provider Active St art: February 09, 2025 End: February 09, 2025 Team Status: Active Member Role Status Dates Garrison Bell MD Primary Care Provider Active Team Status: Active Member Role Status Dates Garrison Bell MD Primary Care Provide r, Attending Provider Active Start: September 04, 2024 Team Status: Inactive Member Role Status Dates Jacinto Fraga DO Attending Provider Active S tart: September 04, 2024 End: September 04, 2024 Team Status: Active Member Role Status Dates Garrison Bell MD Primary Care Provider Active Start: September 05, 2024 Lexus Brush MD Attending Provider Active Start : September 05, 2024 Team Status: Active Member Role Status Fatmata Perez CMA Attending Provider Active Start: September 07, 2024 Team Status: Inactive Member Role Status Fatmata Bell MD Primary Care Provide r, Attending Provider Active Start: September 14, 2024 End: September 14, 2024 Team Status: Active Member Role Status Fatmata Bell MD Primary Care Provide r, Attending Provider Active Start: September 16, 2024 Team Status: Active Member Role Status Fatmata Bell MD Primary Care Provide r, Attending Provider Active Start: October 15, 2024 Team Status: Inactive Member Role Status Fatmata Bell MD Primary Care Provide r, Attending Provider Active Start: October 29, 2024 End: October 29, 2024 Team Status: Inactive Member Role Status Fatmata Bell MD Primary Care Provide r, Attending Provider Active Start: April 06, 2024 End: April 06, 2024 Team Status: Inactive Member Role Status Fatmata Bell MD Primary Care Provider Active Start: June 30, 2024 End: June 30, 2024 Eric Villanueva MD Attending Provider Active Sta rt: June 30, 2024 End: June 30, 2024 Team Status: Active Member Role Status Fatmata Bell MD Primary Care Provide r, Attending Provider Active Start: October 17, 2023 Team Status: Inactive Member Role Status Fatmata Bell MD Primary Care Provider Active Start: October 17, 2023 End: October 17, 2023 ANGELO Miles Attending Provider Active Start: October 17, 2023 End: October 17, 2023 Team Status: Active Member Role Status Fatmata Bell MD Primary Care Provider Active Start: November 04, 2023 Placido Torres Attending Provider Active Start: November 04, 2023 Team Status: Active Member Role Status Fatmata Bell MD Primary Care Provider Active Start: November 29, 2023 Placido Torres Attending Provider Active Start: November 29, 2023 Team Status: Inactive Member Role Status Fatmata Bell MD Primary Care Provide r, Attending Provider Active Start: December 04, 2023 End: December 04, 2023 Team Status: Active Member Role Status Dates Garrison Bell MD Primary Care Provide r, Attending Provider Active Start: December 09, 2023 Team Status: Active Member Role Status Fatmata Bell MD Primary Care Provider Active Start: December 30, 2023 Placido Torres Attending Provider Active Start: December 30, 2023 Team Status: Active Member Role Status Fatmata Bell MD Primary Care Provider Active Start: January 09, 2024 Skylerab Gege Torres Attending Provider Active Start: January 09, 2024 Team Status: Inactive Member Role Status Fatmata Bell MD Primary Care Provider Active Start: January 15, 2024 End: January 15, 2024 Eric Villanueva MD Attending Provider Active Sta rt: January 15, 2024 End: January 15, 2024 Team Status: Inactive Member Role Status Fatmata Bell MD Primary Care Provider Active Start: October 10, 2023 End: October 10, 2023 Eric Villanueva MD Attending Provider Active Sta rt: October 10, 2023 End: October 10, 2023 Team Status: Inactive Member Role Status Fatmata Bell MD Primary Care Provider Active Start: October 15, 2023 End: October 15, 2023 Eric Villanueva MD Attending Provider Active Sta rt: October 15, 2023 End: October 15, 2023 Team Status: Active Member Role Status Fatmata Bell MD Primary Care Provider Active Start: October 15, 2023 Eric Villanueva MD Attending Provider, Other Provider Active Start: October 15, 2023 Team Status: Active Member Role Status Fatmata Bell MD Primary Care Provide r, Attending Provider Active Start: August 16, 2023 Team Status: Inactive Member Role Status Fatmata Bell MD Primary Care Provide r, Attending Provider Active Start: September 04, 2023 End: September 04, 2023 Team Status: Inactive Member Role Status Fatmata Bell MD Primary Care Provider Active Eric Villanueva MD Attending Provider Active Team Status: Inactive Member Role Status Fatmata Bell MD Primary Care Provider Active Alka Hankins MD Attending Provider Active Team Status: Inactive Member Role Status Fatmata Bell MD Primary Care Provider Active Zena García NP-C Attending Provider Active Team Status: Active Member Role Status Fatmata Bell MD Primary Care Provider Active Start: October 17, 2023 SPRING MilesC Attending Provider Active Start: October 17, 2023 Team Status: Inactive Member Role Status Dates Garrison Bell MD Primary Care Provider Active Start: March 10, 2024 End: March 10, 2024 Zena García NP-C Attending Provider Active Start: March 10, 2024 [...] Provider Active Start: March 16, 2024 Placido Torres Attending Provider Active Start: March 16, 2024 [...] Other Provider Active Start: March 24, 2024 Teacher Cclc Relationship Specialty Start Date End Date Garrison Bell MD [address] [place] [address] PCP - General Family Medicine 09/16/23 Teacher Cclc Relationship Specialty Start Date End Date Garrison Bell MD [address] [place] [address] PCP - General Family Medicine 09/16/23 Team [...] July 08, 2024 End: July 08, 2024 Team Status: Active Member Role Status Dates Garrison Bell MD Primary Care Provider Active Start: October 30, 2024 Placido Torres Attending Provider Active Start: October 30, 2024 Team Status: Inactive Member Role Status Dates Garrison Bell MD Primary Care Provider Active Start: November 12, 2024 End: November 12, 2024 Lexus Brush MD Attending Provider Active Start : November 12, 2024 End: November 12, 2024 Team Status: Inactive Member Role Status Dates Garrison Bell MD Primary Care Provider Active Start: February 09, 2025 End: February 09, 2025 Garrison Bell MD Attending Provider Active St art: February 09, 2025 End: February 09, 2025 INFORMATION SOURCE (unrecogn ized section and content) DATE CREATED AUTHOR 08/24/2022 [facility] DATE CREATED AUTHOR AUTHOR'S ORGANIZ ATION 11/08/2022 [facility] pital DATE CREATED AUTHOR AUTHOR'S ORGANIZ ATION 03/20/2024 [facility] EPIC DATE CREATED AUTHOR AUTHOR'S ORGANIZ ATION 09/08/2024 [facility] DATE CREATED AUTHOR AUTHOR'S ORGANIZ ATION 11/21/2024 [facility] Goals (unrecognized section and content) Goals may [...] BE BASED ON THE PRIMARY CLINICAL RECORDS. [employer] provides no warranty or guarantee of the accuracy or completeness of information in this document.
[2025-03-09 14:44] LABS: Albumin Level 3.4 g/dL (3.4-5.0); Anion Gap 9.5; Blood Urea Nitrogen 31.0 mg/dL (7.0-18.0); Calcium 9.0 mg/dL (8.5-10.1); Carbon Dioxide 27.9 mmol/L (21.0-32.0); Chloride 107 mmol/L (98-107); Estimated GFR (African America 45 (>=60 mL/min/1.73m^2); Estimated GFR (Non-African Ame 37 (>=60 mL/min/1.73m^2); Glucose 186 mg/dL (74-106); Magnesium 2.0 mg/dL (1.8-2.4); Potassium 4.4 mmol/L (3.5-5.1); Sodium 140 mmol/L (136-145); Uric Acid 6.6 mg/dL (2.6-6.0)
[2025-03-09 15:16] LABS: Iron 63.0 ug/dL (50.0-170.0); Percent Iron Saturation 24.7 %; Total Iron Binding Capacity 255.0 ug/dL (250.0-450.0)
[2025-03-09 15:41] LABS: Ferritin 154.0 ng/mL (8.0-252.0)
== END 2025-03-09 13:58 | disposition home or self-care (01) ==
LOC: LAB 13:59
PROVIDERS: PCP Family Medicine; Visit Provider Internal Medicine
DX: N25.81 Secondary hyperparathyroidism of renal origin (principal); D63.1 Anemia in chronic kidney disease; I12.9 Hypertensive chronic kidney disease with stage 1 through stage 4 chronic kidney disease, or unspecified chronic kidney disease; E11.22 Type 2 diabetes mellitus with diabetic chronic kidney disease; N18.32 Chronic kidney disease, stage 3b
CPT/HCPCS: 36415; 80069; 81001; 82306; 82570; 82728; 83540; 83550; 83735; 83970; 84156; 84550; 85027

== ENCOUNTER 2025-03-12 13:59 | Outpatient (REF) | payer MEDICARE, OTHER, SELFPAY ==
--- OUTSIDE RECORDS SUMMARY | 2025-03-12 14:02 | XMS_ITS | Encounter Summary ---
Author Organization [facility] [employer] [facility] tem Address [id number] [address] [place] [address] Care Team Providers Care Media Production Support Manager Name Role Phone Giana Campo MD Primary Care Provider [phone] Encounter Details Date Type Department Care Team (Late st Contact Info) Description 09/06/2020 Orders Only [facility] [address] [place] [address] Giana Campo MD [address] [place] [address] Social History Tobacco Use Types Packs/Day Years [...] on filedocumented in this encounter Care Teams Media Production Support Manager Relationship Specialty Start Date End Date Giana Campo MD [address] [place] [address] PCP - General Family Medicine 09/06/20 documented as of this encounter
--- OUTSIDE RECORDS SUMMARY | 2025-03-12 14:02 | XMS_ITS | Clinical Summary ---
Author Organization [facility] Address [address] [place] [address] Care Team Providers Care Radiocommunications Technician Name Role Phone Giana Campo MD Primary Care Provider [phone] Allergies Active Allergy Reactions Criticality Noted Date [...] tabletIndications: Essential hypertension, benign,Coronary artery disease involving kake coronary artery of kake heart without angina pectoris Take 1 tablet [...] (03/19/2022): Added automatically from request for surgery [id number] Essential hypertension, benign 08/04/2002 Myalgia and myositis, unspecified 08/04/2002 Coronary artery disease Hypertension Encounters Date Type Department Care Team Description 02/23/2025 Refill [facility] [place] [address] [place] [id number] Jessica, Lorenza, SHELLY Essential hypertension from Last [...] to complete this topic Insurance [employer]ARE [employer] Care Teams Radiocommunications Technician Relationship Specialty Start Date End Date Giana Campo MD [address] [facility]A PCP - General 03/16/22
--- OUTSIDE RECORDS SUMMARY | 2025-03-12 14:03 | XMS_ITS | Clinical Summary ---
Author Organization [employer] tem Address [id number] [address] [place] [address] Care Team Providers Care Cpr Ambulance Driver Name Role Phone Giana Campo MD Primary Care Provider [phone] Allergies Active Allergy Reactions Criticality Noted Date [...] 03/21/2026 03/21/2016 Medical Devices Implanted Type Area Edi Specialist Device Identifier Shelf Expiration Date Model / Serial / Lot Lens Iol Ultrasert 16.0d - [id number] - [id number] Implanted:Qty: 1 on 03/28/2023 by Krissy Alanis MD at [facility] Lens Right: Eye [employer] 02/13/2025 [id number] 16.0 / [id number] / NA Lens Iol Ultrasert 17.0d - [id number] - [id number] Implanted:Qty: 1 on 04/18/2023 by Krissy Alanis MD at [facility] Lens Left: Eye [employer] 02/18/2025 [id number] 17.0 / [id number] / NA Insurance [employer]ARE [employer] Care Teams Cpr Ambulance Driver Relationship Specialty Start Date End Date Giana Campo MD [facility] [place] [address] PCP - General Family Medicine 09/06/20
--- OUTSIDE RECORDS SUMMARY | 2025-03-12 14:03 | XMS_ITS | Clinical Summary ---
Author Organization [facility] Address [address] [place] [address] Care Team Providers Care Dental Hygiene Teacher Name Role Phone Giana Campo MD Primary Care Provider [phone] Allergies Active Allergy Reactions Criticality Noted Date [...] Plan of Treatment Not on file Insurance * Guarantor: Libra Noonan Account Type Relation to Patient Date of Phone Billing Address Personal/Family Self [address] [place] [id number] [employer]ARE [employer] Care Teams Dental Hygiene Teacher Relationship Specialty Start Date End Date Giana Campo MD PCP - General Family Medicine 09/16/23
--- OUTSIDE RECORDS SUMMARY | 2025-03-12 14:03 | XMS_ITS | Clinical Summary ---
Author Organization [facility] Address [address] [place], [place] [id number] Care Team Providers Care Collateral Clerk Name Role Phone Unavailable Primary Care [...] Protein, Total 7.9 6.0 - 8.4 g/dL [facility] Albumin 4.2 3.5 - 5.0 g/dL [facility] Calcium 10.1 8.5 - 10.5 mg/dL [facility] Bilirubin, Total 0.2 0.0 - 1.5 mg/dL [facility] Alkaline Phosphatase 128 40 - 150 U/L [facility] AST 6(A) 7 - 40 U/L [facility] Glucose 100 65 - 110 mg/dL [facility] BUN 21 8 - 25 mg/dL [facility] Creatinine 0.9 0.7 - 1.4 mg/dL [facility] Sodium 137 132 - 148 mmol/L [facility] Potassium 4.3 3.5 - 5.0 mmol/L [facility] Chloride 98 98 - 110 mmol/L [facility] CO2 24 24 - 32 mmol/L [facility] Anion Gap 15 0 - 15 mmol/L [facility] ALT 6 0 - 45 U/L [facility] Blood specimen (specimen) BLOOD SPECIMEN / Unknown 08/04/2002 6:09 PM EST Jeremiah Curry LABORAT[facility] Final Result [facility] [address] [place] [address] from Last 3 Months or Most Recently Relevant to Health Maintenance Insurance [facility]
--- OUTSIDE RECORDS SUMMARY | 2025-03-12 14:06 | XMS_ITS | CCD ---
Author Organization [facility] CliniSyor Care Team Providers Care Manufacturing Industrial Engineer Name Role Phone Zena García Unavailable Jazz Nance Unavailable Eric Villanueva Unavailable MD Garrison Bell Primary Care Provider MD Eric Villanueva Attending Provider GARRISON BELL Primary Care Physician [phone] ZENA POTTER Attending Unavailable Garrison Bell Unavailable Alka Hankins Unavailable MD Garrison Bell Primary Care Provider [phone] MD Alka Hankins R Attending Provider MD Eric Villanueva Attending Provider ANGELO García Attending Provider DR GARRISON BELL Admitting Unavailable RAY, DR GARRISON Jefferson Primary Care Unavailable WORLEY, DR ANN MARIE Gibbons Consulting Unavailable RAY, [...] Care Provider MD Eric Villanueva Attending Provider [phone] MD Garrison Bell Primary Care Provider MD Eric Villanueva Attending Provider MD Garrison Bell Primary Care Provider MD Eric Villanueva Attending Provider ANGELO García Attending Provider MD Garrison Bell Primary Care Provider RENETTA NGUYEN Attending Unavailable MD Garrison Bell Primary Care Provider MD Eric Villanueva Attending Provider [phone] Garrison Bell MD Primary Care Provider [phone] Jacinto Fraga DO Attending Provider Unavailab Eric [...] Attending Provider Garrison Bell MD Attending Provider Allergies Allergy Classification Reported Allergen(s) Allergy Type Date of Onset Reaction(s) Facility Acetaminophen (1 source) Acetaminophen Drug Allergy 12-04-19 24 dizziness, and stomach issues [facility] Angiotensin Converting Enzyme (HIRAM) Inhibitors (1 source) Lisinopril Drug Allergy 12-04-19 24 [facility] metFORMIN (1 source) metFORMIN Drug Allergy 12-04-19 24 [facility] Nitrofurantoin (1 source) Nitrofurantoin Drug Allergy 12-04-19 24 [facility] Opioid Agonists (2 sources) oxyCODONE Drug Allergy 12-04-19 24 constipation, dizziness, and stomach issues, Vomiting [facility] (20 sources) Acetaminophen / oxyCODONE; Translations: [acetaminophen-ox ycodone] Drug Allergy 01-21-20 19 Unknown (qualifier value) [facility] (20 sources) oxyCODONE Drug Allergy 03-20-20 22 Vomiting, constipation, constipation, dizziness, and stomach issues [facility] Comment on above: Onset Date: 01/21/20 19 (20 sources) Propoxyphene; Translations: [PROPOXYPHENE] Drug Allergy 03-20-20 22 GI intolerance, Unknown [facility] (2 sources) acetaminophen / propoxyphene; Translations: [acetaminophen-pr opoxyphene] Drug Allergy Unknown (qualifier value) [facility] (2 sources) Acetaminophen / oxyCODONE; Translations: [Percocet] Drug Allergy 07-28-19 21 [facility] (20 sources) Lisinopril; Translations: [LISINOPRIL] Drug Allergy 01-20-20 19 Unknown, [facility] Comment on above: Onset Date: 01/20/20 19 (20 sources) metFORMIN; Translations: [METFORMIN] Drug Allergy 01-20-20 19 [facility] Comment on above: Onset Date: 01/20/20 19 (11 sources) NITROFURANTOIN, MACROCRYSTALS / Nitrofurantoin, Monohydrate Drug Allergy Unknown [facility] (3 sources) Allergies Reconciled Propensity to adverse reactions Unknown [facility] Other (3 sources) patient allergy list reviewed by nurse or physicia Propensity to adverse reactions 01-21-20 Comment:Done [facility] Other (11 sources) Darvocet A500 *ANALGESICS - OPIOID* Propensity to adverse reactions 01-21-20 Unknown [facility] Other (20 sources) Acetaminophen; Translations: [ACETAMINOPHEN] Drug Allergy 10-10-19 dizziness, and stomach issues [facility] Comment on above: Onset Date: 01/21/20 19 (20 sources) Nitrofurantoin; Translations: [NITROFURANTOIN] Drug Allergy 10-10-19 24 [facility] (19 sources) Darvocet A500 *ANALGESICS - OP Allergy to substance 08-15-19 [facility] Comment on above: Free Text Allergy: D arvocet A500 *ANALGESICS - OPIOID*; Onset Date: 01/20/2019 (3 sources) Acetaminophen / oxyCODONE; Translations: [OXYCODONE-ACETAM INOPHEN] Drug Allergy 09-07-19 GI intolerance, Rash, Unknown [facility] (2 sources) Lisinopril Allergy to substance 03-10-20 [facility] (2 sources) Wound Dressing Adhesive Drug Intolerance 08-04-19 03 [facility] (1 source) ADHESIVE TAPE-SILICONES; Translations: [ADHESIVE TAPE-SILICONES] Propensity to adverse reactions to drug (disorder) 08-04-19 [facility] (1 source) PROPOXYPHENE N-ACETAMINOPHEN; Translations: [PROPOXYPHENE N-ACETAMINOPHEN] Propensity to adverse reactions to drug (disorder) 09-07-19 [facility] Medications Current Medications Medication Drug Class(es) Dates Sig (Normalized) Sig (Original) [id number] 200 actuat albuterol 0.09 mg/actuat metered dose [...] Blood-Glucose Meter (True Me trix Glucose Meter) [facility] (14 sources) Start: 12-11-2023 Blood-Glucose Meter (True Metrix Glucose Meter) [facility] Active 0 .Route 1 December 10, 2023 11:00pm to test blood sugar daily Start: 12-11-2023 Blood-Glucose Meter (True Metrix Glucose Meter) [facility] Active 0 .Route 1 December 11, 2023 12:00am to test blood sugar daily carvedilol 25 mg oral tablet (20 sources) alpha-Adrenergic [place], beta-Adrenergic [place] Start: 03-23-2024 Carvedilol 25 mg [...] MonThu, # 42.5 gm, Refills(s) 3, Pharmacy: [facility] 536, 160, cm, 08/16/21 15:10:00 EST, [...] 9:57am Start: 08-28-2022 take 1 capsule by [facility] every twelve hours Lyrica 75 [...] disease (2 sources) Atherosclerotic heart disease of [place] coronary artery without angina pectoris; Translations: [Atherosclerotic heart disease of [place] coronary artery without angina pectoris] Onset: 2 [...] sources) Long-term current use of insulin; Translations: [skilled nursing (current) use of insulin] Episodic Other aftercare (2 sources) 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 Episodic Other circulatory [...] te Episodic/Chronic Other aftercare (1 source) Other half-way (current) drug therapy; Translations: [OTH SKILLED NURSING CURRENT DRUG THERAPY] Onset: 06-14-2022 Episodic Other [...] Range Facility Office Visiton 11-19-2024 Follow-up visit [id number] Libra Noonan 1950 F Date Provider Department Center 11/19/2024 PLACIDO PECK [facility] Family History Problem Relation Age of Onset Rheumatic fever Mother Heart failure Mother Stroke Mother Other Mother Comments: She is unsure if this was a defibrillator Stroke Father Family Status - Relation Status Age at Mother Father Level of Service:[address]84 [place] OFFICE/OUTPATIENT ESTABLISHED LOW MDM 20 MIN Normal [facility] 36on 11-02-2024 36 Regarding lab result s from 10/30/2024: MD Lorenza Atkinson MA Please make sure she is seeing a customer experience analyst Thanks. Spoke with patient and she is following with Dr. Brush. Lab results faxed to their office. Normal [facility] Estimated glomerular filtrat ion rate (GFR) non- Americanon 10-30-2024 GFR/1.73 sq M.predicted among non-blacks MDRD (S/P/Bld) [Vol rate/Area] Estimated glomerular filtration rate (GFR) non- Low >=60 mL/min/1.73m 2 [facility] Glucose mean value [Mass/vol ume] in Blood Estimated from glycated hemoglobinon 10-30-2024 Average glucose Estimated from glycated hemoglobin (Bld) [Mass/Vol] Glucose mean value [Mass/volume] in Blood Estimated from glycated hemoglobin [facility] Hemoglobin A1c percentageon 10-30-2024 HbA1c (Bld) [Mass fraction] Hemoglobin A1c percentage High 4.5-6.2 [facility] Comment on above: ADA RECOMMENDED LIMI T 4.0 - 6.0ADA THERAPEUTIC TARGET < 7.0ACTION SUGGESTED> 7.0 Laboratory - Chemistry and C hemistry - challengeon 10-30-2024 Calcium [Mass/Vol] 9.0 mg/dL 8.5-10.1 [facility] Chloride [Moles/Vol] 104 mmol/L 98-107 [facility] CO2 [Moles/Vol] 27.5 mmol/L 21.0-32.0 [facility] Creatinine [Mass/Vol] 1.66 mg/dL High 0.55-1.02 [facility] GFR/1.73 sq M.predicted MDRD (S/P/Bld) [Vol rate/Area] 37 mL/min/{1.73_m2} Low >=60 mL/min/1.73m 2 [facility] Glucose [Mass/Vol] 207 mg/dL High 74-106 [facility] Potassium [Moles/Vol] 4.7 mmol/L 3.5-5.1 [facility] Sodium [Moles/Vol] 139 mmol/L 136-145 [facility] Urea nitrogen [Mass/Vol] 49.0 mg/dL High 7.0-18.0 [facility] Urea nitrogen/Creatinine [Mass ratio] 29.5 mg/mg [facility] Serum or plasma anion gap de terminationon 10-30-2024 Anion gap [Moles/Vol] Serum or plasma anion gap determination [facility] Office Visiton 10-20-2024 Follow-up visit [id number] Libra Noonan 1950 F Date Provider Department Center 10/20/2024 [id number]-PLACIDO TORRES CARD [facility] Family History Problem Relation Age of Onset Rheumatic fever Mother Heart failure Mother Stroke Mother Other Mother Comments: She is unsure if this was a defibrillator Stroke Father Family Status - Relation Status Age at Mother Father Level of Service:22245 [place] OFFICE/OUTPATIENT ESTABLISHED MOD MDM 30 MIN Normal [facility] Basophils Auto (Bld) [#/Vol] on 10-15-2024 Basophils (Bld) [#/Vol] Automated basophil count 0.0-0.1 [facility] Basophils/100 WBC Auto (Bld) on 10-15-2024 Basophils/100 WBC (Bld) Automated basophil % 0.2-2.0 [facility] Eosinophils/100 WBC Auto (Bl d)on 10-15-2024 Eosinophils/100 WBC (Bld) Automated eosinophil % 0.9-7.0 [facility] Erythrocyte distribution wid th Auto (RBC) [Ratio]on 10-15-2024 Erythrocyte distribution width (RBC) [Ratio] Erythrocyte distribution width [Ratio] by Automated count 11.0-15.0 [facility] Estimated glomerular filtrat ion rate (GFR) non- Americanon 10-15-2024 GFR/1.73 sq M.predicted among non-blacks MDRD (S/P/Bld) [Vol rate/Area] Estimated glomerular filtration rate (GFR) non- Low >=60 mL/min/1.73m 2 [facility] Hematocrit Auto (Bld) [Volum e fraction]on 10-15-2024 Hematocrit (Bld) [Volume fraction] Hematocrit [Volume Fraction] of Blood by Automated count 36.0-48.0 [facility] Hemoglobin [Mass/volume] in Bloodon 10-15-2024 Hemoglobin (Bld) [Mass/Vol] Hemoglobin [Mass/volume] in Blood Low 12.0-16.0 [facility] Laboratory - Chemistry and C hemistry - challengeon 10-15-2024 Calcium [Mass/Vol] 9.0 mg/dL 8.5-10.1 [facility] Chloride [Moles/Vol] 105 mmol/L 98-107 [facility] CO2 [Moles/Vol] 25.9 mmol/L 21.0-32.0 [facility] Creatinine [Mass/Vol] 1.54 mg/dL High 0.55-1.02 [facility] GFR/1.73 sq M.predicted MDRD (S/P/Bld) [Vol rate/Area] 40 mL/min/{1.73_m2} Low >=60 mL/min/1.73m 2 [facility] Glucose [Mass/Vol] 245 mg/dL High 74-106 [facility] Natriuretic peptide B (Bld) [Mass/Vol] 516.0 pg/mL <=900.0 [facility] Potassium [Moles/Vol] 4.7 mmol/L 3.5-5.1 [facility] Sodium [Moles/Vol] 140 mmol/L 136-145 [facility] Urea nitrogen [Mass/Vol] 36.0 mg/dL High 7.0-18.0 [facility] Urea nitrogen/Creatinine [Mass ratio] 23.4 mg/mg [facility] Laboratory - Hematology and Cell countson 10-15-2024 Immature granulocytes/100 WBC (Bld) 0.3 % 0.0-0.5 [facility] Leukocytes [#/volume] correc nicholas for nucleated erythrocytes in Blood by Automated counon 10-15-2024 WBC corrected for nucl RBC Auto (Bld) [#/Vol] Leukocytes [#/volume] corrected for nucleated erythrocytes in Blood by Automated coun 4.0-11.0 [facility] Lymphocytes Auto (Bld) [#/Vo l]on 10-15-2024 Lymphocytes (Bld) [#/Vol] Lymphocytes [#/volume] in Blood by Automated count 1.2-3.8 [facility] Lymphocytes/100 WBC Auto (Bl d)on 10-15-2024 Lymphocytes/100 WBC (Bld) Lymphocytes/100 leukocytes in Blood by Automated count 20.5-60.0 [facility] MCH Auto (RBC) [Entitic mass ]on 10-15-2024 MCH (RBC) [Entitic mass] MCH [Entitic mass] by Automated count 26.7-34.0 [facility] MCHC Auto (RBC) [Mass/Vol]on 10-15-2024 MCHC (RBC) [Mass/Vol] MCHC [Mass/volume] by Automated count 29.9-35.2 [facility] MCV Auto (RBC) [Entitic vol] on 10-15-2024 MCV (RBC) [Entitic vol] MCV [Entitic volume] by Automated count 81.0-99.0 [facility] Monocytes Auto (Bld) [#/Vol] on 10-15-2024 Monocytes (Bld) [#/Vol] Automated blood monocyte count 0.3-0.8 [facility] Monocytes/100 WBC Auto (Bld) on 10-15-2024 Monocytes/100 WBC (Bld) Automated monocyte % 1.7-12.0 [facility] Neutrophils Auto (Bld) [#/Vo l]on 10-15-2024 Neutrophils (Bld) [#/Vol] Neutrophils [#/volume] in Blood by Automated count 1.4-6.5 [facility] Neutrophils/100 WBC Auto (Bl d)on 10-15-2024 Neutrophils/100 WBC (Bld) Automated neutrophil % 43.0-75.0 [facility] No Panel Informationon 10-15 Eosinophils # (Auto) 0.3 10 3/uL 0.0-0.7 [facility] Immature Granulocyte # (Auto) 0.02 10 3/uL 0.00-0.03 [facility] Platelet mean volume Auto (B ld) [Entitic vol]on 10-15-2024 Platelet mean volume (Bld) [Entitic vol] Platelet mean volume [Entitic volume] in Blood by Automated count 9.5-13.5 [facility] Platelets Auto (Bld) [#/Vol] on 10-15-2024 Platelets (Bld) [#/Vol] Platelets [#/volume] in Blood by Automated count 150-450 [facility] RBC Auto (Bld) [#/Vol]on RBC (Bld) [#/Vol] Erythrocytes [#/volume] in Blood by Automated count Low 4.20-5.40 [facility] Serum or plasma anion gap de terminationon 10-15-2024 Anion gap [Moles/Vol] Serum or plasma anion gap determination [facility] Estimated glomerular filtrat ion rate (GFR) non- Americanon 09-16-2024 GFR/1.73 sq M.predicted among non-blacks MDRD (S/P/Bld) [Vol rate/Area] Estimated glomerular filtration rate (GFR) non- Low >=60 mL/min/1.73m 2 [facility] Laboratory - Chemistry and C hemistry - challengeon 09-16-2024 Calcium [Mass/Vol] 9.2 mg/dL 8.5-10.1 [facility] Chloride [Moles/Vol] 106 mmol/L 98-107 [facility] CO2 [Moles/Vol] 24.5 mmol/L 21.0-32.0 [facility] Creatinine [Mass/Vol] 1.55 mg/dL High 0.55-1.02 [facility] GFR/1.73 sq M.predicted MDRD (S/P/Bld) [Vol rate/Area] 40 mL/min/{1.73_m2} Low >=60 mL/min/1.73m 2 [facility] Glucose [Mass/Vol] 228 mg/dL High 74-106 [facility] Natriuretic peptide B (Bld) [Mass/Vol] 454.0 pg/mL <=900.0 [facility] Potassium [Moles/Vol] 4.5 mmol/L 3.5-5.1 [facility] Sodium [Moles/Vol] 139 mmol/L 136-145 [facility] Urea nitrogen [Mass/Vol] 37.0 mg/dL High 7.0-18.0 [facility] Urea nitrogen/Creatinine [Mass ratio] 23.9 mg/mg [facility] Office Visiton 09-16-2024 Follow-up visit [id number] Libra Noonan 1950 F Date Provider Department Center 09/16/2024 [id number] GREEN Family History Problem Relation Age of Onset Rheumatic fever Mother Heart failure Mother Stroke Mother Other Mother Comments: She is unsure if this was a defibrillator Stroke Father Family Status - Relation Status Age at Mother Father Level of Service:24743 [place] OFFICE/OUTPATIENT ESTABLISHED LOW MDM 20 MIN Normal [facility] Serum or plasma anion gap de terminationon 09-16-2024 Anion gap [Moles/Vol] Serum or plasma anion gap determination [facility] Basophils Auto (Bld) [#/Vol] on 09-05-2024 Basophils (Bld) [#/Vol] Automated basophil count 0.0-0.1 [facility] Basophils/100 WBC Auto (Bld) on 09-05-2024 Basophils/100 WBC (Bld) Automated basophil % 0.2-2.0 [facility] Eosinophils/100 WBC Auto (Bl d)on 03-15-2025 Eosinophils/100 WBC (Bld) Automated eosinophil % 0.9-7.0 [facility] Erythrocyte distribution wid th Auto (RBC) [Ratio]on 09-05-2024 Erythrocyte distribution width (RBC) [Ratio] Erythrocyte distribution width [Ratio] by Automated count 11.0-15.0 [facility] Estimated glomerular filtrat ion rate (GFR) non- Americanon 09-05-2024 GFR/1.73 sq M.predicted among non-blacks MDRD (S/P/Bld) [Vol rate/Area] Estimated glomerular filtration rate (GFR) non- Low >=60 mL/min/1.73m 2 [facility] Globulin Calc (S) [Mass/Vol] on 09-05-2024 Globulin (S) [Mass/Vol] Serum globulin measurement by calculation (mass/volume) [facility] Hematocrit Auto (Bld) [Volum e fraction]on 09-05-2024 Hematocrit (Bld) [Volume fraction] Hematocrit [Volume Fraction] of Blood by Automated count Low 36.0-48.0 [facility] Hemoglobin [Mass/volume] in Bloodon 09-05-2024 Hemoglobin (Bld) [Mass/Vol] Hemoglobin [Mass/volume] in Blood Low 12.0-16.0 [facility] Laboratory - Chemistry and C hemistry - challengeon 09-05-2024 Albumin [Mass/Vol] 3.0 g/dL Low 3.4-5.0 [facility] ALP [Catalytic activity/Vol] 87 U/L 46-116 [facility] ALT [Catalytic activity/Vol] 21 U/L 14-59 [facility] AST [Catalytic activity/Vol] 17 U/L 15-37 [facility] Bilirubin [Mass/Vol] 0.4 mg/dL 0.2-1.0 [facility] Calcium [Mass/Vol] 8.8 mg/dL 8.5-10.1 [facility] Chloride [Moles/Vol] 106 mmol/L 98-107 [facility] CO2 [Moles/Vol] 25.4 mmol/L 21.0-32.0 [facility] Creatinine [Mass/Vol] 1.39 mg/dL High 0.55-1.02 [facility] GFR/1.73 sq M.predicted MDRD (S/P/Bld) [Vol rate/Area] 45 mL/min/{1.73_m2} Low >=60 mL/min/1.73m 2 [facility] Glucose [Mass/Vol] 139 mg/dL High 74-106 [facility] Magnesium [Mass/Vol] 1.9 mg/dL 1.8-2.4 [facility] Potassium [Moles/Vol] 4.0 mmol/L 3.5-5.1 [facility] Protein [Mass/Vol] 6.0 g/dL Low 6.4-8.2 [facility] Sodium [Moles/Vol] 141 mmol/L 136-145 [facility] Urea nitrogen [Mass/Vol] 30.0 mg/dL High 7.0-18.0 [facility] Urea nitrogen/Creatinine [Mass ratio] 21.6 mg/mg [facility] Laboratory - Hematology and Cell countson 09-05-2024 Immature granulocytes/100 WBC (Bld) 0.1 % 0.0-0.5 [facility] Leukocytes [#/volume] correc nicholas for nucleated erythrocytes in Blood by Automated counon 09-05-2024 WBC corrected for nucl RBC Auto (Bld) [#/Vol] Leukocytes [#/volume] corrected for nucleated erythrocytes in Blood by Automated coun 4.0-11.0 [facility] Lymphocytes Auto (Bld) [#/Vo l]on 09-05-2024 Lymphocytes (Bld) [#/Vol] Lymphocytes [#/volume] in Blood by Automated count 1.2-3.8 [facility] Lymphocytes/100 WBC Auto (Bl d)on 09-05-2024 Lymphocytes/100 WBC (Bld) Lymphocytes/100 leukocytes in Blood by Automated count 20.5-60.0 [facility] MCH Auto (RBC) [Entitic mass ]on 09-05-2024 MCH (RBC) [Entitic mass] MCH [Entitic mass] by Automated count 26.7-34.0 [facility] MCHC Auto (RBC) [Mass/Vol]on 09-05-2024 MCHC (RBC) [Mass/Vol] MCHC [Mass/volume] by Automated count 29.9-35.2 [facility] MCV Auto (RBC) [Entitic vol] on 09-05-2024 MCV (RBC) [Entitic vol] MCV [Entitic volume] by Automated count 81.0-99.0 [facility] Monocytes Auto (Bld) [#/Vol] on 09-05-2024 Monocytes (Bld) [#/Vol] Automated blood monocyte count 0.3-0.8 [facility] Monocytes/100 WBC Auto (Bld) on 09-05-2024 Monocytes/100 WBC (Bld) Automated monocyte % 1.7-12.0 [facility] Neutrophils Auto (Bld) [#/Vo l]on 09-05-2024 Neutrophils (Bld) [#/Vol] Neutrophils [#/volume] in Blood by Automated count 1.4-6.5 [facility] Neutrophils/100 WBC Auto (Bl d)on 09-05-2024 Neutrophils/100 WBC (Bld) Automated neutrophil % 43.0-75.0 [facility] No Panel Informationon 09-05 Eosinophils # (Auto) 0.2 10 3/uL 0.0-0.7 [facility] Immature Granulocyte # (Auto) 0.01 10 3/uL 0.00-0.03 [facility] Platelet mean volume Auto (B ld) [Entitic vol]on 09-05-2024 Platelet mean volume (Bld) [Entitic vol] Platelet mean volume [Entitic volume] in Blood by Automated count 9.5-13.5 [facility] Platelets Auto (Bld) [#/Vol] on 09-05-2024 Platelets (Bld) [#/Vol] Platelets [#/volume] in Blood by Automated count 150-450 [facility] RBC Auto (Bld) [#/Vol]on RBC (Bld) [#/Vol] Erythrocytes [#/volume] in Blood by Automated count Low 4.20-5.40 [facility] Serum or plasma albumin/glob ulin mass ratioon 09-05-2024 Albumin/Globulin [Mass ratio] Serum or plasma albumin/globulin mass ratio [facility] Serum or plasma anion gap de terminationon 09-05-2024 Anion gap [Moles/Vol] Serum or plasma anion gap determination [facility] Basophils Auto (Bld) [#/Vol] on 09-04-2024 Basophils (Bld) [#/Vol] Automated basophil count 0.0-0.1 [facility] Basophils/100 WBC Auto (Bld) on 09-04-2024 Basophils/100 WBC (Bld) Automated basophil % 0.2-2.0 [facility] Eosinophils/100 WBC Auto (Bl d)on 09-04-2024 Eosinophils/100 WBC (Bld) Automated eosinophil % 0.9-7.0 [facility] Erythrocyte distribution wid th Auto (RBC) [Ratio]on 09-04-2024 Erythrocyte distribution width (RBC) [Ratio] Erythrocyte distribution width [Ratio] by Automated count 11.0-15.0 [facility] Estimated glomerular filtrat ion rate (GFR) non- Americanon 09-04-2024 GFR/1.73 sq M.predicted among non-blacks MDRD (S/P/Bld) [Vol rate/Area] Estimated glomerular filtration rate (GFR) non- Low >=60 mL/min/1.73m 2 [facility] Hematocrit Auto (Bld) [Volum e fraction]on 09-04-2024 Hematocrit (Bld) [Volume fraction] Hematocrit [Volume Fraction] of Blood by Automated count 36.0-48.0 [facility] Hemoglobin [Mass/volume] in Bloodon 09-04-2024 Hemoglobin (Bld) [Mass/Vol] Hemoglobin [Mass/volume] in Blood 12.0-16.0 [facility] Laboratory - Chemistry and C hemistry - challengeon 09-04-2024 Calcium [Mass/Vol] 9.2 mg/dL 8.5-10.1 [facility] Chloride [Moles/Vol] 103 mmol/L 98-107 [facility] CO2 [Moles/Vol] 27.7 mmol/L 21.0-32.0 [facility] Creatinine [Mass/Vol] 1.70 mg/dL High 0.55-1.02 [facility] GFR/1.73 sq M.predicted MDRD (S/P/Bld) [Vol rate/Area] 36 mL/min/{1.73_m2} Low >=60 mL/min/1.73m 2 [facility] Glucose [Mass/Vol] 147 mg/dL High 74-106 [facility] Potassium [Moles/Vol] 4.7 mmol/L 3.5-5.1 [facility] Sodium [Moles/Vol] 140 mmol/L 136-145 [facility] Urea nitrogen [Mass/Vol] 29.0 mg/dL High 7.0-18.0 [facility] Urea nitrogen/Creatinine [Mass ratio] 17.1 mg/mg [facility] Laboratory - Hematology and Cell countson 09-04-2024 Immature granulocytes/100 WBC (Bld) 0.2 % 0.0-0.5 [facility] System [facility] - Microbiology an d Antimicrobial susceptibilityon 09-04-2024 SARS-CoV-2 (COVID-19) RNA LUIS+probe Ql (Unsp spec) Negative NEGATIVE [facility] Comment on above: This test has not [...] erythrocytes in Blood by Automated coun 4.0-11.0 [facility] Lymphocytes Auto (Bld) [#/Vo l]on 09-04-2024 Lymphocytes (Bld) [#/Vol] Lymphocytes [#/volume] in Blood by Automated count 1.2-3.8 [facility] Lymphocytes/100 WBC Auto (Bl d)on 09-04-2024 Lymphocytes/100 WBC (Bld) Lymphocytes/100 leukocytes in Blood by Automated count 20.5-60.0 [facility] MCH Auto (RBC) [Entitic mass ]on 09-04-2024 MCH (RBC) [Entitic mass] MCH [Entitic mass] by Automated count 26.7-34.0 [facility] MCHC Auto (RBC) [Mass/Vol]on 09-04-2024 MCHC (RBC) [Mass/Vol] MCHC [Mass/volume] by Automated count 29.9-35.2 [facility] MCV Auto (RBC) [Entitic vol] on 09-04-2024 MCV (RBC) [Entitic vol] MCV [Entitic volume] by Automated count 81.0-99.0 [facility] Monocytes Auto (Bld) [#/Vol] on 09-04-2024 Monocytes (Bld) [#/Vol] Automated blood monocyte count 0.3-0.8 [facility] Monocytes/100 WBC Auto (Bld) on 09-04-2024 Monocytes/100 WBC (Bld) Automated monocyte % 1.7-12.0 [facility] Neutrophils Auto (Bld) [#/Vo l]on 09-04-2024 Neutrophils (Bld) [#/Vol] Neutrophils [#/volume] in Blood by Automated count High 1.4-6.5 [facility] Neutrophils/100 WBC Auto (Bl d)on 09-04-2024 Neutrophils/100 WBC (Bld) Automated neutrophil % 43.0-75.0 [facility] No Panel Informationon 09-04 Bedside Influenza Type A Antigen Negative [facility] Comment on above: Negative for Flu A p rotein antigen. Infection due to Flu Acannot be ruled out. Flu A antigen in the sample may bebelow the detection limit of the test. Bedside Influenza Type B Antigen Negative [facility] Comment on above: Negative for Flu B p rotein antigen. Infection due to Flu Bcannot be ruled out. Flu B antigen in the sample may bebelow the detection limit of the test. Eosinophils # (Auto) 0.2 10 3/uL 0.0-0.7 [facility] Immature Granulocyte # (Auto) 0.02 10 3/uL 0.00-0.03 [facility] Troponin I High Sensitivity 13.5 pg/mL 4.0-51.3 [facility] Comment on above: CUT-OFF POINTS HAVE BEEN [...] volume] in Blood by Automated count 9.5-13.5 [facility] Platelets Auto (Bld) [#/Vol] on 09-04-2024 Platelets (Bld) [#/Vol] Platelets [#/volume] in Blood by Automated count 150-450 [facility] RBC Auto (Bld) [#/Vol]on RBC (Bld) [#/Vol] Erythrocytes [#/volume] in Blood by Automated count 4.20-5.40 [facility] Serum or plasma anion gap de terminationon 09-04-2024 Anion gap [Moles/Vol] Serum or plasma anion gap determination [facility] Urine Cultureon 09-04-2024 Bacteria identified Cx Nom (U) >100,000 colonies/ml mixed bacterial skin contaminants 2 Days PERFORMED BY: [place] [address] PATHOLOGIST LEAD SOFTWARE QA ENGINEER TIMI Weldon [facility] Comment on above: Performed By: #### C UU #### [address] Urine cultureOrdered By: Kingsley Fraga on 09-04-2024 Bacteria identified Cx Nom (U) Urine culture [facility] HbA1c HPLC (Bld) [Mass fract ion]on 04-06-2024 HbA1c (Bld) [Mass fraction] Hemoglobin A1c/Hemoglobin.total in Blood by HPLC [facility] No Panel Informationon 03-17 Type of biopsy: [...] taken. Amount of lidocaine used: 1 cc [facility] Type of biopsy: tangential Informed [...] taken. Amount of lidocaine used: 3 cc [facility] Estimated glomerular filtrat ion rate (GFR) non- Americanon 03-16-2024 GFR/1.73 sq M.predicted among non-blacks MDRD (S/P/Bld) [Vol rate/Area] 43 mL/min/{1.73_m2} Low >=60 [facility] Laboratory - Chemistry and C hemistry - challengeon 03-16-2024 Calcium [Mass/Vol] 9.2 mg/dL 8.5-10.1 [facility] Chloride [Moles/Vol] 102 mmol/L 98-107 [facility] CO2 [Moles/Vol] 27.5 mmol/L 21.0-32.0 [facility] Creatinine [Mass/Vol] 1.23 mg/dL High 0.55-1.02 [facility] GFR/1.73 sq M.predicted MDRD (S/P/Bld) [Vol rate/Area] 52 mL/min/{1.73_m2} Low >=60 [facility] Glucose [Mass/Vol] 240 mg/dL High 74-106 [facility] Natriuretic peptide B (Bld) [Mass/Vol] 435.0 pg/mL <=900.0 [facility] Potassium [Moles/Vol] 4.2 mmol/L 3.5-5.1 [facility] Sodium [Moles/Vol] 136 mmol/L 136-145 [facility] Urea nitrogen [Mass/Vol] 37.0 mg/dL High 7.0-18.0 [facility] Urea nitrogen/Creatinine [Mass ratio] 30.1 mg/mg [facility] Office Visiton 03-16-2024 Follow-up visit [id number] Libra Noonan 1950 F Date Provider Department Center 03/16/2024 Des-PLACIDO TORRES [facility] Family History Problem Relation Age of Onset Rheumatic fever Mother Heart failure Mother Stroke Mother Other Mother Comments: She is unsure if this was a defibrillator Stroke Father Family Status - Relation Status Age at Mother Father Level of Service:11715 [place] OFFICE/OUTPATIENT ESTABLISHED MOD MDM 30 MIN Normal [facility] Serum or plasma anion gap de terminationon 03-16-2024 Anion gap [Moles/Vol] 10.7 mmol/L [facility] 36on 03-09-2024 36 Patient's daughter called prior [...] wonders if she needs to see a recreation therapist to check her lung function. Maybe she will qualify for cardiac rehab? Daughter DOES NOT WANT US TO TELL HER MOTHER THAT SHE SPOKE WITH US. Normal [facility] 36on 01-10-2024 36 Regarding BMP from 01/09/2024: MD Lorenza Atkinson MA Please let her know her s.cr is better. Would recommend staying on the current dose of diuretics Thanks Spoke with patient and informed her of message per Dr. Torres. She will continue furosemide 10mg every other day. Normal [facility] Estimated glomerular filtrat ion rate (GFR) non- Americanon 01-09-2024 GFR/1.73 sq M.predicted among non-blacks MDRD (S/P/Bld) [Vol rate/Area] 41 mL/min/{1.73_m2} Low >=60 [facility] Laboratory - Chemistry and C hemistry - challengeon 01-09-2024 Calcium [Mass/Vol] 8.9 mg/dL 8.5-10.1 [facility] Chloride [Moles/Vol] 107 mmol/L 98-107 [facility] CO2 [Moles/Vol] 28.8 mmol/L 21.0-32.0 [facility] Creatinine [Mass/Vol] 1.28 mg/dL High 0.55-1.02 [facility] GFR/1.73 sq M.predicted MDRD (S/P/Bld) [Vol rate/Area] 50 mL/min/{1.73_m2} Low >=60 [facility] Glucose [Mass/Vol] 96 mg/dL 74-106 [facility] Potassium [Moles/Vol] 4.8 mmol/L 3.5-5.1 [facility] Sodium [Moles/Vol] 143 mmol/L 136-145 [facility] Urea nitrogen [Mass/Vol] 29.0 mg/dL High 7.0-18.0 [facility] Urea nitrogen/Creatinine [Mass ratio] 22.7 mg/mg [facility] Serum or plasma anion gap de terminationon 01-09-2024 Anion gap [Moles/Vol] 12.0 mmol/L [facility] 29on 01-02-2024 29 Addended by: LORENZA DUTTON on: 01/02/2024 09:12 AM Modules accepted: Orders [facility] 36on 01-02-2024 36 Patient LM on our VM confirming she got my message. She will have repeat BMP next week. Order faxed. [facility] 36on 01-01-2024 36 LM for patient timmy flanagan her to return my call. [facility] 36 Regarding BMP from 12/30/2023: MD Lorenza Atkinson MA Please have her decrease lasix to 10 mg daily and repeat BMP in 1 week Thanks Spoke with patient and she is already taking 10mg daily. Is there something else you'd like or should she stay on this dose? Please advise. Thanks. [facility] Telephoneon 01-01-2024 Telephone [id number] Libra Noonan 1950 F Date Provider Department Center 01/01/2024 928-LORENZA DUTTON [facility] Family History Problem Relation Age of Onset Rheumatic fever Mother Heart failure Mother Stroke Mother Other Mother Comments: She is unsure if this was a defibrillator Stroke Father Family Status - Relation Status Age at Mother Father [facility] Estimated glomerular filtrat ion rate (GFR) non- Americanon 12-30-2023 GFR/1.73 sq M.predicted among non-blacks MDRD (S/P/Bld) [Vol rate/Area] 37 mL/min/{1.73_m2} Low >=60 [facility] Laboratory - Chemistry and C hemistry - challengeon 12-30-2023 Calcium [Mass/Vol] 8.7 mg/dL 8.5-10.1 [facility] Chloride [Moles/Vol] 107 mmol/L 98-107 [facility] CO2 [Moles/Vol] 26.9 mmol/L 21.0-32.0 [facility] Creatinine [Mass/Vol] 1.39 mg/dL High 0.55-1.02 [facility] GFR/1.73 sq M.predicted MDRD (S/P/Bld) [Vol rate/Area] 45 mL/min/{1.73_m2} Low >=60 [facility] Glucose [Mass/Vol] 193 mg/dL High 74-106 [facility] Potassium [Moles/Vol] 4.5 mmol/L 3.5-5.1 [facility] Sodium [Moles/Vol] 141 mmol/L 136-145 [facility] Urea nitrogen [Mass/Vol] 32.0 mg/dL High 7.0-18.0 [facility] Urea nitrogen/Creatinine [Mass ratio] 23.0 mg/mg [facility] Serum or plasma anion gap de terminationon 12-30-2023 Anion gap [Moles/Vol] 11.6 mmol/L [facility] 36on 12-16-2023 36 Regarding lab result s [...] BMP in 2 weeks. Order faxed to [facility]. Normal [facility] Basophils Auto (Bld) [#/Vol] on 12-09-2023 Basophils (Bld) [#/Vol] 0.0 10 3/uL 0.0-0.1 [facility] Basophils/100 WBC Auto (Bld) on 12-09-2023 Basophils/100 WBC (Bld) 0.4 % 0.2-2.0 [facility] Eosinophils/100 WBC Auto (Bl d)on 12-09-2023 Eosinophils/100 WBC (Bld) 2.7 % 0.9-7.0 [facility] Erythrocyte distribution wid th Auto (RBC) [Ratio]on 12-09-2023 Erythrocyte distribution width (RBC) [Ratio] 12.9 % 11.0-15.0 [facility] Estimated glomerular filtrat ion rate (GFR) non- Americanon 12-09-2023 GFR/1.73 sq M.predicted among non-blacks MDRD (S/P/Bld) [Vol rate/Area] 39 mL/min/{1.73_m2} Low >=60 [facility] Hematocrit Auto (Bld) [Volum e fraction]on 12-09-2023 Hematocrit (Bld) [Volume fraction] 37.7 % 36.0-48.0 [facility] Hemoglobin [Mass/volume] in Bloodon 12-09-2023 Hemoglobin (Bld) [Mass/Vol] 11.8 g/dL Low 12.0-16.0 [facility] Laboratory - Chemistry and C hemistry - challengeon 12-09-2023 Calcium [Mass/Vol] 9.1 mg/dL 8.5-10.1 [facility] Chloride [Moles/Vol] 105 mmol/L 98-107 [facility] CO2 [Moles/Vol] 28.9 mmol/L 21.0-32.0 [facility] Cobalamin (Vitamin B12) [Mass/Vol] 492.0 pg/mL 193.0-986.0 [facility] Creatinine [Mass/Vol] 1.33 mg/dL High 0.55-1.02 [facility] Ferritin [Mass/Vol] 180.0 ng/mL 8.0-252.0 [facility] GFR/1.73 sq M.predicted MDRD (S/P/Bld) [Vol rate/Area] 48 mL/min/{1.73_m2} Low >=60 [facility] Glucose [Mass/Vol] 162 mg/dL High 74-106 [facility] Potassium [Moles/Vol] 4.7 mmol/L 3.5-5.1 [facility] Sodium [Moles/Vol] 138 mmol/L 136-145 [facility] Urea nitrogen [Mass/Vol] 33.0 mg/dL High 7.0-18.0 [facility] Urea nitrogen/Creatinine [Mass ratio] 24.8 mg/mg [facility] Laboratory - Hematology and Cell countson 12-09-2023 Immature granulocytes/100 WBC (Bld) 0.4 % 0.0-0.5 [facility] Leukocytes [#/volume] correc nicholas for nucleated erythrocytes in Blood by Automated counon 12-09-2023 WBC corrected for nucl RBC Auto (Bld) [#/Vol] 9.4 10 3/uL 4.0-11.0 [facility] Lymphocytes Auto (Bld) [#/Vo l]on 12-09-2023 Lymphocytes (Bld) [#/Vol] 2.5 10 3/uL 1.2-3.8 [facility] Lymphocytes/100 WBC Auto (Bl d)on 12-09-2023 Lymphocytes/100 WBC (Bld) 26.3 % 20.5-60.0 [facility] MCH Auto (RBC) [Entitic mass ]on 12-09-2023 MCH (RBC) [Entitic mass] 29.1 pg 26.7-34.0 [facility] MCHC Auto (RBC) [Mass/Vol]on 12-09-2023 MCHC (RBC) [Mass/Vol] 31.3 g/dL 29.9-35.2 [facility] MCV Auto (RBC) [Entitic vol] on 12-09-2023 MCV (RBC) [Entitic vol] 92.9 fL 81.0-99.0 [facility] Monocytes Auto (Bld) [#/Vol] on 12-09-2023 Monocytes (Bld) [#/Vol] 0.5 10 3/uL 0.3-0.8 [facility] Monocytes/100 WBC Auto (Bld) on 12-09-2023 Monocytes/100 WBC (Bld) 5.2 % 1.7-12.0 [facility] Neutrophils Auto (Bld) [#/Vo l]on 12-09-2023 Neutrophils (Bld) [#/Vol] 6.1 10 3/uL 1.4-6.5 [facility] Neutrophils/100 WBC Auto (Bl d)on 12-09-2023 Neutrophils/100 WBC (Bld) 65.0 % 43.0-75.0 [facility] No Panel Informationon 12-08 Eosinophils # (Auto) 0.3 10 3/uL 0.0-0.7 [facility] Folate 21.20 ng/mL 8.60-58.90 [facility] Immature Granulocyte # (Auto) 0.04 10 3/uL High 0.00-0.03 [facility] Platelet mean volume Auto (B ld) [Entitic vol]on 12-09-2023 Platelet mean volume (Bld) [Entitic vol] 10.4 fL 9.5-13.5 [facility] Platelets Auto (Bld) [#/Vol] on 12-09-2023 Platelets (Bld) [#/Vol] 242 10 3/uL 150-450 [facility] RBC Auto (Bld) [#/Vol]on RBC (Bld) [#/Vol] 4.06 10 6/uL Low 4.20-5.40 [facility] Serum or plasma anion gap de terminationon 12-09-2023 Anion gap [Moles/Vol] 8.8 mmol/L [facility] 36on 12-03-2023 36 Regarding lab result s from 11/29/2023: MD Lorenza Atkinson MA Please let her know her s.cr is mildly elevated; would like her to decrease lasix to 10 mg (1/2 a tablet) daily and repeat BMP in 5 days Thanks Spoke with patient and made her aware. BMP sent to [facility]. She will have drawn on Saturday, 12/08. Normal [facility] Estimated glomerular filtrat ion rate (GFR) non- Americanon 11-29-2023 GFR/1.73 sq M.predicted among non-blacks MDRD (S/P/Bld) [Vol rate/Area] 37 mL/min/{1.73_m2} Low >=60 [facility] Laboratory - Chemistry and C hemistry - challengeon 11-29-2023 Calcium [Mass/Vol] 9.0 mg/dL 8.5-10.1 [facility] Chloride [Moles/Vol] 104 mmol/L 98-107 [facility] CO2 [Moles/Vol] 28.5 mmol/L 21.0-32.0 [facility] Creatinine [Mass/Vol] 1.41 mg/dL High 0.55-1.02 [facility] GFR/1.73 sq M.predicted MDRD (S/P/Bld) [Vol rate/Area] 44 mL/min/{1.73_m2} Low >=60 [facility] Glucose [Mass/Vol] 142 mg/dL High 74-106 [facility] Potassium [Moles/Vol] 4.2 mmol/L 3.5-5.1 [facility] Sodium [Moles/Vol] 140 mmol/L 136-145 [facility] Urea nitrogen [Mass/Vol] 31.0 mg/dL High 7.0-18.0 [facility] Urea nitrogen/Creatinine [Mass ratio] 22.0 mg/mg [facility] Serum or plasma anion gap de terminationon 11-29-2023 Anion gap [Moles/Vol] 11.7 mmol/L [facility] Office Visiton 11-25-2023 Follow-up visit [id number] Libra Noonan 1950 F Date Provider Department Center 11/25/2023 Des-PLACIDO TORRES C[facility] Family History Problem Relation Age of Onset Rheumatic fever Mother Heart failure Mother Stroke Mother Other Mother Comments: She is unsure if this was a defibrillator Stroke Father Family Status - Relation Status Age at Mother Father Level of Service:28604 [place] OFFICE/OUTPATIENT ESTABLISHED MOD MDM 30 MIN Normal [facility] Estimated glomerular filtrat ion rate (GFR) non- Americanon 11-04-2023 GFR/1.73 sq M.predicted among non-blacks MDRD (S/P/Bld) [Vol rate/Area] 28 mL/min/{1.73_m2} Low >=60 [facility] Laboratory - Chemistry and C hemistry - challengeon 11-04-2023 Calcium [Mass/Vol] 9.4 mg/dL 8.5-10.1 [facility] Chloride [Moles/Vol] 101 mmol/L 98-107 [facility] CO2 [Moles/Vol] 26.9 mmol/L 21.0-32.0 [facility] Creatinine [Mass/Vol] 1.79 mg/dL High 0.55-1.02 [facility] GFR/1.73 sq M.predicted MDRD (S/P/Bld) [Vol rate/Area] 34 mL/min/{1.73_m2} Low >=60 [facility] Glucose [Mass/Vol] 191 mg/dL High 74-106 [facility] Potassium [Moles/Vol] 4.0 mmol/L 3.5-5.1 [facility] Sodium [Moles/Vol] 138 mmol/L 136-145 [facility] Urea nitrogen [Mass/Vol] 69.0 mg/dL High 7.0-18.0 [facility] Urea nitrogen/Creatinine [Mass ratio] 38.5 mg/mg [facility] Serum or plasma anion gap de terminationon 11-04-2023 Anion gap [Moles/Vol] 14.1 mmol/L [facility] Basophils Auto (Bld) [#/Vol] on 10-17-2023 Basophils (Bld) [#/Vol] 0.0 10 3/uL 0.0-0.1 [facility] Basophils/100 WBC Auto (Bld) on 10-17-2023 Basophils/100 WBC (Bld) 0.6 % 0.2-2.0 [facility] Cholesterol in LDL Calc [Mas s/Vol]on 10-17-2023 Cholesterol in LDL [Mass/Vol] 44.0 mg/dL [facility] Comment on above: <100 mg/dl [id number] 0-129 mg/dl NEAR OR ABOVE [id number] mg/dl BORDERLINE [id number] mg/dl HIGH>190 mg/dl VERY HIGH Cholesterol in VLDL Calc [Ma ss/Vol]on 10-17-2023 Cholesterol in VLDL [Mass/Vol] 13.6 mg/dL [facility] Eosinophils/100 WBC Auto (Bl d)on 10-17-2023 Eosinophils/100 WBC (Bld) 1.4 % 0.9-7.0 [facility] Erythrocyte distribution wid th Auto (RBC) [Ratio]on 10-17-2023 Erythrocyte distribution width (RBC) [Ratio] 12.0 % 11.0-15.0 [facility] Estimated glomerular filtrat ion rate (GFR) non- Americanon 10-17-2023 GFR/1.73 sq M.predicted among non-blacks MDRD (S/P/Bld) [Vol rate/Area] 42 mL/min/{1.73_m2} Low >=60 [facility] Globulin Calc (S) [Mass/Vol] on 10-17-2023 Globulin (S) [Mass/Vol] 3.6 g/dL [facility] Glucose mean value [Mass/vol ume] in Blood Estimated from glycated hemoglobinon 10-17-2023 Average glucose Estimated from glycated hemoglobin (Bld) [Mass/Vol] 177 mg/dL [facility] Hematocrit Auto (Bld) [Volum e fraction]on 10-17-2023 Hematocrit (Bld) [Volume fraction] 35.3 % Low 36.0-48.0 [facility] Hemoglobin [Mass/volume] in Bloodon 10-17-2023 Hemoglobin (Bld) [Mass/Vol] 11.1 g/dL Low 12.0-16.0 [facility] Laboratory - Chemistry and C hemistry - challengeon 10-17-2023 Albumin [Mass/Vol] 3.6 g/dL 3.4-5.0 [facility] ALP [Catalytic activity/Vol] 105 U/L 46-116 [facility] ALT [Catalytic activity/Vol] 30 U/L 14-59 [facility] AST [Catalytic activity/Vol] 17 U/L 15-37 [facility] Bilirubin [Mass/Vol] 0.5 mg/dL 0.2-1.0 [facility] Calcium [Mass/Vol] 9.4 mg/dL 8.5-10.1 [facility] Chloride [Moles/Vol] 105 mmol/L 98-107 [facility] Cholesterol [Mass/Vol] 122 mg/dL <=200 [facility] Cholesterol in HDL [Mass/Vol] 65 mg/dL High 40-60 [facility] Comment on above: > or =60 mg/dl - LOW CARDIOVASCULAR RISK<40 mg/dl - HIGH CARDIOVASCULAR RISK CO2 [Moles/Vol] 26.7 mmol/L 21.0-32.0 [facility] Creatinine [Mass/Vol] 1.25 mg/dL High 0.55-1.02 [facility] GFR/1.73 sq M.predicted MDRD (S/P/Bld) [Vol rate/Area] 51 mL/min/{1.73_m2} Low >=60 [facility] Glucose [Mass/Vol] 212 mg/dL High 74-106 [facility] Potassium [Moles/Vol] 4.7 mmol/L 3.5-5.1 [facility] Protein [Mass/Vol] 7.2 g/dL 6.4-8.2 [facility] Sodium [Moles/Vol] 141 mmol/L 136-145 [facility] Triglyceride [Mass/Vol] 68 mg/dL <=150 [facility] TSH Qn 2.291 m[IU]/L 0.358-3.740 [facility] Urea nitrogen [Mass/Vol] 30.0 mg/dL High 7.0-18.0 [facility] Urea nitrogen/Creatinine [Mass ratio] 24.0 mg/mg [facility] Laboratory - Hematology and Cell countson 10-17-2023 HbA1c (Bld) [Mass fraction] 7.8 % High 4.5-6.2 [facility] Comment on above: ADA RECOMMENDED LIMI T 4.0 - 6.0ADA THERAPEUTIC TARGET < 7.0ACTION SUGGESTED> 7.0 Immature granulocytes/100 WBC (Bld) 0.3 % 0.0-0.5 [facility] Leukocytes [#/volume] correc nicholas for nucleated erythrocytes in Blood by Automated counon 10-17-2023 WBC corrected for nucl RBC Auto (Bld) [#/Vol] 7.2 10 3/uL 4.0-11.0 [facility] Lymphocytes Auto (Bld) [#/Vo l]on 10-17-2023 Lymphocytes (Bld) [#/Vol] 2.1 10 3/uL 1.2-3.8 [facility] Lymphocytes/100 WBC Auto (Bl d)on 10-17-2023 Lymphocytes/100 WBC (Bld) 29.8 % 20.5-60.0 [facility] MCH Auto (RBC) [Entitic mass ]on 10-17-2023 MCH (RBC) [Entitic mass] 29.7 pg 26.7-34.0 [facility] MCHC Auto (RBC) [Mass/Vol]on 10-17-2023 MCHC (RBC) [Mass/Vol] 31.4 g/dL 29.9-35.2 [facility] MCV Auto (RBC) [Entitic vol] on 10-17-2023 MCV (RBC) [Entitic vol] 94.4 fL 81.0-99.0 [facility] Monocytes Auto (Bld) [#/Vol] on 10-17-2023 Monocytes (Bld) [#/Vol] 0.4 10 3/uL 0.3-0.8 [facility] Monocytes/100 WBC Auto (Bld) on 10-17-2023 Monocytes/100 WBC (Bld) 6.1 % 1.7-12.0 [facility] Neutrophils Auto (Bld) [#/Vo l]on 10-17-2023 Neutrophils (Bld) [#/Vol] 4.5 10 3/uL 1.4-6.5 [facility] Neutrophils/100 WBC Auto (Bl d)on 10-17-2023 Neutrophils/100 WBC (Bld) 61.8 % 43.0-75.0 [facility] No Panel Informationon 10-16 Eosinophils # (Auto) 0.1 10 3/uL 0.0-0.7 [facility] Immature Granulocyte # (Auto) 0.02 10 3/uL 0.00-0.03 [facility] Platelet mean volume Auto (B ld) [Entitic vol]on 10-17-2023 Platelet mean volume (Bld) [Entitic vol] 10.9 fL 9.5-13.5 [facility] Platelets Auto (Bld) [#/Vol] on 10-17-2023 Platelets (Bld) [#/Vol] 214 10 3/uL 150-450 [facility] RBC Auto (Bld) [#/Vol]on RBC (Bld) [#/Vol] 3.74 10 6/uL Low 4.20-5.40 [facility] Serum or plasma albumin/glob ulin mass ratioon 10-17-2023 Albumin/Globulin [Mass ratio] 1.0 {ratio} [facility] Serum or plasma anion gap de terminationon 10-17-2023 Anion gap [Moles/Vol] 14.0 mmol/L [facility] Serum or plasma total choles terol/high density lipoprotein (HDL) cholesterol mass helen 10-17-2023 Cholesterol.total/C holesterol in HDL [Mass ratio] 1.9 {ratio} [facility] Comment on above: 3.3 - 4.4 LOW RISK4. 4 - 7.1 AVERAGE RISK7.1 - 11.0 MODERATE RISK>11.0 HIGH RISK Basophils Auto (Bld) [#/Vol] on 08-16-2023 Basophils (Bld) [#/Vol] 0.1 10 3/uL 0.0-0.1 [facility] Basophils/100 WBC Auto (Bld) on 08-16-2023 Basophils/100 WBC (Bld) 0.9 % 0.2-2.0 [facility] Eosinophils/100 WBC Auto (Bl d)on 08-16-2023 Eosinophils/100 WBC (Bld) 6.5 % 0.9-7.0 [facility] Erythrocyte distribution wid th Auto (RBC) [Ratio]on 08-16-2023 Erythrocyte distribution width (RBC) [Ratio] 12.3 % 11.0-15.0 [facility] Estimated glomerular filtrat ion rate (GFR) non- Americanon 08-16-2023 GFR/1.73 sq M.predicted among non-blacks MDRD (S/P/Bld) [Vol rate/Area] 44 mL/min/{1.73_m2} >=60 [facility] Fibrin D-dimer [Presence] in Platelet poor plasma by Latex agglutinationon 08-16-2023 Fibrin D-dimer LA Ql (PPP) 0.72 mg/L FEU <=0.59 [facility] Comment on above: RESULTS CALLED TO DR [...] on 08-16-2023 Globulin (S) [Mass/Vol] 3.7 g/dL [facility] Hematocrit Auto (Bld) [Volum e fraction]on 08-16-2023 Hematocrit (Bld) [Volume fraction] 36.1 % 36.0-48.0 [facility] Hemoglobin [Mass/volume] in Bloodon 08-16-2023 Hemoglobin (Bld) [Mass/Vol] 11.6 g/dL 12.0-16.0 [facility] Laboratory - Chemistry and C hemistry - challengeon 08-16-2023 Albumin [Mass/Vol] 3.1 g/dL 3.4-5.0 [facility] ALP [Catalytic activity/Vol] 100 U/L 46-116 [facility] ALT [Catalytic activity/Vol] 22 U/L 14-59 [facility] AST [Catalytic activity/Vol] 17 U/L 15-37 [facility] Bilirubin [Mass/Vol] 0.6 mg/dL 0.2-1.0 [facility] Calcium [Mass/Vol] 9.1 mg/dL 8.5-10.1 [facility] Chloride [Moles/Vol] 106 mmol/L 98-107 [facility] CO2 [Moles/Vol] 28.5 mmol/L 21.0-32.0 [facility] Creatinine [Mass/Vol] 1.21 mg/dL 0.55-1.02 [facility] GFR/1.73 sq M.predicted MDRD (S/P/Bld) [Vol rate/Area] 53 mL/min/{1.73_m2} >=60 [facility] Glucose [Mass/Vol] 214 mg/dL 74-106 [facility] Lipase [Catalytic activity/Vol] 15.0 U/L 16.0-77.0 [facility] Natriuretic peptide B (Bld) [Mass/Vol] 447.0 pg/mL <=900.0 [facility] Potassium [Moles/Vol] 4.3 mmol/L 3.5-5.1 [facility] Protein [Mass/Vol] 6.8 g/dL 6.4-8.2 [facility] Sodium [Moles/Vol] 144 mmol/L 136-145 [facility] Urea nitrogen [Mass/Vol] 23.0 mg/dL 7.0-18.0 [facility] Urea nitrogen/Creatinine [Mass ratio] 19.0 mg/mg [facility] Laboratory - Hematology and Cell countson 08-16-2023 Immature granulocytes/100 WBC (Bld) 0.3 % 0.0-0.5 [facility] Leukocytes [#/volume] correc nicholas for nucleated erythrocytes in Blood by Automated counon 08-16-2023 WBC corrected for nucl RBC Auto (Bld) [#/Vol] 7.0 10 3/uL 4.0-11.0 [facility] Lymphocytes Auto (Bld) [#/Vo l]on 08-16-2023 Lymphocytes (Bld) [#/Vol] 1.7 10 3/uL 1.2-3.8 [facility] Lymphocytes/100 WBC Auto (Bl d)on 08-16-2023 Lymphocytes/100 WBC (Bld) 24.4 % 20.5-60.0 [facility] MCH Auto (RBC) [Entitic mass ]on 08-16-2023 MCH (RBC) [Entitic mass] 30.6 pg 26.7-34.0 [facility] MCHC Auto (RBC) [Mass/Vol]on 08-16-2023 MCHC (RBC) [Mass/Vol] 32.1 g/dL 29.9-35.2 [facility] MCV Auto (RBC) [Entitic vol] on 08-16-2023 MCV (RBC) [Entitic vol] 95.3 fL 81.0-99.0 [facility] Monocytes Auto (Bld) [#/Vol] on 08-16-2023 Monocytes (Bld) [#/Vol] 0.4 10 3/uL 0.3-0.8 [facility] Monocytes/100 WBC Auto (Bld) on 08-16-2023 Monocytes/100 WBC (Bld) 6.3 % 1.7-12.0 [facility] Neutrophils Auto (Bld) [#/Vo l]on 08-16-2023 Neutrophils (Bld) [#/Vol] 4.3 10 3/uL 1.4-6.5 [facility] Neutrophils/100 WBC Auto (Bl d)on 08-16-2023 Neutrophils/100 WBC (Bld) 61.6 % 43.0-75.0 [facility] No Panel Informationon 08-16 Eosinophils # (Auto) 0.5 10 3/uL 0.0-0.7 [facility] Immature Granulocyte # (Auto) 0.02 10 3/uL 0.00-0.03 [facility] Troponin I High Sensitivity 12.0 pg/mL 4.0-51.3 [facility] Comment on above: CUT-OFF POINTS HAVE BEEN [...] volume (Bld) [Entitic vol] 10.3 fL 9.5-13.5 [facility] Platelets Auto (Bld) [#/Vol] on 08-16-2023 Platelets (Bld) [#/Vol] 214 10 3/uL 150-450 [facility] RBC Auto (Bld) [#/Vol]on RBC (Bld) [#/Vol] 3.79 10 6/uL 4.20-5.40 [facility] Serum or plasma albumin/glob ulin mass ratioon 08-16-2023 Albumin/Globulin [Mass ratio] 0.8 {ratio} [facility] Serum or plasma anion gap de terminationon 08-16-2023 Anion gap [Moles/Vol] 13.8 mmol/L [facility] CBC AUTO DIFFon 11-06-2022 BASO # 0.0 103/ul Normal 0.0-0.1 [facility] Comment on above: Performed By: #### C BC #### [facility] [address] [address] [address] Dylan Santana Basophils/100 WBC (Bld) 0.2 % Normal 0.2-2.0 [facility] Comment on above: Performed By: #### C BC #### [facility] [address] [address] [address] Dylan Santana EO # 0.0 103/ul Normal 0.0-0.7 [facility] Comment on above: Performed By: #### C BC #### [facility] [address] [address] [address] Dylan Santana Eosinophils/100 WBC (Bld) 0.2 % Critically low 0.9-7.0 [facility] Comment on above: Performed By: #### C BC #### [facility] [address] [address] [address] Dylan Santana Erythrocyte distribution width (RBC) [Ratio] 12.1 % Normal 11.0-15.0 [facility] Comment on above: Performed By: #### C BC #### [facility] [address] [place] [address] Dr. Dylan Santana Hematocrit (Bld) [Volume fraction] 42.7 % Normal 36.0-48.0 [facility] Comment on above: Performed By: #### C BC #### [facility] [address] [address] [address] Dylan Santana Hemoglobin (Bld) [Mass/Vol] 13.9 g/dL Normal 12.0-16.0 [facility] Comment on above: Performed By: #### C BC #### [facility] [address] [place] [address] Dr. Dylan Santana IG # 0.05 10e3/ul Critically high 0.00-0.03 [facility] Comment on above: Performed By: #### C BC #### [facility] [address] [place] [address] Dr. Dylan Santana IG % 0.5 % Normal 0.0-0.5 [facility] Comment on above: Performed By: #### C BC #### [facility] [address] [place] [address] Dr. Dylan Santana LYMPH # 2.1 103/ul Normal 1.2-3.8 [facility] Comment on above: Performed By: #### C BC #### [facility] [address] [place] [address] Dr. Dylan Santana Lymphocytes/100 WBC (Bld) 20.8 % Normal 20.5-60.0 [facility] Comment on above: Performed By: #### C BC #### [facility] [address] [place] [address] Dr. Dylan Santana MANUAL DIFF REQ NO Normal [facility] Comment on above: Performed By: #### C BC #### [facility] [address] [place] [address] Dr. Dylan Santana MCH (RBC) [Entitic mass] 30.1 pg Normal 26.7-34.0 [facility] Comment on above: Performed By: #### C BC #### [facility] [address] [place] [address] Dr. Dylan Santana MCHC (RBC) [Mass/Vol] 32.6 g/dL Normal 29.9-35.2 [facility] Comment on above: Performed By: #### C BC #### [facility] [address] [place] [address] Dr. Dylan Santana MCV (RBC) [Entitic vol] 92.4 fL Normal 81.0-99.0 [facility] Comment on above: Performed By: #### C BC #### [facility] [address] [address] [address] Dylan Santana MONO # 0.4 103/ul Normal 0.3-0.8 [facility] Comment on above: Performed By: #### C BC #### [facility] [address] [address] [address] Dylan Santana Monocytes/100 WBC (Bld) 3.8 % Normal 1.7-12.0 [facility] Comment on above: Performed By: #### C BC #### [facility] [address] [address] [address] Dylan Santana NEUT # 7.6 103/ul Critically high 1.4-6.5 [facility] Comment on above: Performed By: #### C BC #### [facility] [address] [place] [address] Dr. Dylan Santana Neutrophils/100 WBC (Bld) 74.5 % Normal 43.0-75.0 [facility] Comment on above: Performed By: #### C BC #### [facility] [address] [address] [address] Dylan Santana Platelet mean volume (Bld) [Entitic vol] 10.4 fL Normal 9.5-13.5 [facility] Comment on above: Performed By: #### C BC #### [facility] [address] [place] [address] Dr. Dylan Santana PLT 228 103/ul Normal 150-450 [facility] Comment on above: Performed By: #### C BC #### [facility] [address] [address] [address] Dylan Santana RBC 4.62 106/ul Normal 4.20-5.40 [facility] Comment on above: Performed By: #### C BC #### [facility] [address] [address] [address] Dylan Santana WBC 10.2 103/ul Normal 4.0-11.0 [facility] Comment on above: Performed By: #### C BC #### [facility] [address] [place] [address] Dr. Dylan Santana GLYCOHEMOGLOBIN A1Con 2022 ADA RECOMMENDATION SEE BELOW Normal [facility] Comment on above: Result Comment: ADA RECOMMENDED LIMIT 4.0 - 6.0 ADA THERAPEUTIC TARGET < 7.0 ACTION SUGGESTED > 7.0 Performed By: #### A 1C #### [facility] [address] [address] [address] Dylan Santana Glucose [Mass/Vol] 214 mg/dL Normal [facility] Comment on above: Performed By: #### A 1C #### [facility] [address] [place] [address] Dr. Dylan Santana HbA1c (Bld) [Mass fraction] 9.1 % Critically high 4.5-6.2 [facility] Comment on above: Performed By: #### A 1C #### [facility] [address] [place] [address] Dr. Dylan Santana LIPID PROFILEon 11-06-2022 CHOL-HDL RATIO NORM SEE BELOW Normal [facility] Comment on above: Result Comment: 3.3 - 4.4 LOW RISK 4.4 - 7.1 AVERAGE RISK 7.1 - 11.0 MODERATE RISK >11.0 HIGH RISK Performed By: #### L IPID #### [facility] [address] [place] [address] Dr. Dylan Santana Cholesterol [Mass/Vol] 142 mg/dL Normal <=200 [facility] Comment on above: Performed By: #### L IPID #### [facility] [address] [place] [address] Dr. Dylan Santana Cholesterol in HDL [Mass/Vol] 74 mg/dL Critically high 40-60 [facility] Comment on above: Performed By: #### L IPID #### [facility] [address] [place] [address] Dr. Dylan Santana Cholesterol in LDL [Mass/Vol] 49.4 mg/dL Normal [facility] Comment on above: Performed By: #### L IPID #### [facility] [address] [place] [address] Dr. Dylan Santana Cholesterol.total/C holesterol in HDL [Mass ratio] 1.9 {ratio} Normal [facility] Comment on above: Performed By: #### L IPID #### [facility] [address] [address] [address] Dylan Santana HDL NORMAL > or = 60 mg/dl - LO W CARDIOVASCULAR RISK <40 mg/dl - HIGH CARDIOVASCULAR RISK Normal [facility] Comment on above: Performed By: #### L IPID #### [facility] [address] [address] [address] Dylan Santana LDL CALC NORMAL SEE BELOW Normal [facility] Comment on above: Result Comment: <100 mg/dl OPTIMAL 100 - 129 mg/dl NEAR OR ABOVE OPTIMAL 130 - 159 mg/dl BORDERLINE HIGH 160 - 189 mg/dl HIGH >190 mg/dl VERY HIGH Performed By: #### L IPID #### [facility] [address] [address] [address] Dylan Santana Triglyceride [Mass/Vol] 93 mg/dL Normal <=150 [facility] Comment on above: Performed By: #### L IPID #### [facility] [address] [address] [address] Dylan Santana VLDL CALC 18.6 mg/dL Normal [facility] Comment on above: Performed By: #### L IPID #### [facility] [address] [address] [address] Dylan Santana PROF CHEM 8 (BAS METB)on Anion gap [Moles/Vol] 12.8 mmol/L Normal [facility] Comment on above: Performed By: #### C BC #### [facility] [address] [address] [address] Dylan Santana Calcium [Mass/Vol] 9.5 mg/dL Normal 8.5-10.1 [facility] Comment on above: Performed By: #### C BC #### [facility] [address] [address] [address] Dylan Santana Chloride [Moles/Vol] 105 mmol/L Normal 98-107 [facility] Comment on above: Performed By: #### C BC #### [facility] [address] [address] [address] Dylan Santana CO2 [Moles/Vol] 28.1 mmol/L Normal 21.0-32.0 [facility] Comment on above: Performed By: #### C BC #### [facility] [address] [address] [address] Dylan Santana Creatinine [Mass/Vol] 1.29 mg/dL Critically high 0.55-1.02 [facility] Comment on above: Performed By: #### C BC #### [facility] [address] [address] [address] Dylan Santana EGFR-AF [place] 49 mL/min/1.73m2 Critically low >=60 [facility] Comment on above: Performed By: #### C BC #### [facility] [address] [address] [address] Dylan Santana EGFR-NON AF [place] 41 mL/min/1.73m2 Critically low >=60 [facility] Comment on above: Performed By: #### C BC #### [facility] [address] [address] [address] Dylan Santana Glucose [Mass/Vol] 290 mg/dL Critically high 74-106 [facility] Comment on above: Performed By: #### C BC #### [facility] [address] [address] [address] Dylan Santana Potassium [Moles/Vol] 4.9 mmol/L Normal 3.5-5.1 [facility] Comment on above: Performed By: #### C BC #### [facility] [address] [address] [address] Dylan Santana Sodium [Moles/Vol] 141 mmol/L Normal 136-145 [facility] Comment on above: Performed By: #### C BC #### [facility] [address] [address] [address] Dylan Santana Urea nitrogen [Mass/Vol] 30.0 mg/dL Critically high 7.0-18.0 [facility] Comment on above: Performed By: #### C BC #### [facility] [address] [address] [address] Dylan Santana Urea nitrogen/Creatinine [Mass ratio] 23.3 mg/mg Normal [facility] Comment on above: Performed By: #### C BC #### [facility] [address] [place] [address] Dr. Dylan Santana XR SHOULDER LT 2V [...] MARIE TINEO Date: 2022-07-26 16:54 Normal [facility] XR CHEST 2 Von 06-19-2022 XR CHEST [...] WEI REED Date: 2022-06-19 18:36 Normal [facility] BNPon 06-10-2022 Natriuretic peptide B (Bld) [Mass/Vol] 683.0 pg/mL Normal <=900.0 [facility] Comment on above: Performed By: #### L IPID, TSH, CMP #### [facility] [address] [place] [address] Dr. Dylan Santana CBC AUTO DIFFon 06-10-2022 BASO # 0.0 103/ul Normal 0.0-0.1 [facility] Comment on above: Performed By: #### C BC #### [facility] [address] [place] [address] Dr. Dylan Santana Basophils/100 WBC (Bld) 0.6 % Normal 0.2-2.0 [facility] Comment on above: Performed By: #### C BC #### [facility] [address] [place] [address] Dr. Dylan Santana EO # 0.3 103/ul Normal 0.0-0.7 [facility] Comment on above: Performed By: #### C BC #### [facility] [address] [place] [address] Dr. Dylan Santana Eosinophils/100 WBC (Bld) 4.9 % Normal 0.9-7.0 [facility] Comment on above: Performed By: #### C BC #### [facility] [address] [place] [address] Dr. Dylan Santana Erythrocyte distribution width (RBC) [Ratio] 12.2 % Normal 11.0-15.0 [facility] Comment on above: Performed By: #### C BC #### [facility] [address] [place] [address] Dr. Dylan Santana Hematocrit (Bld) [Volume fraction] 36.2 % Normal 36.0-48.0 [facility] Comment on above: Performed By: #### C BC #### [facility] [address] [place] [address] Dr. Dylan Santana Hemoglobin (Bld) [Mass/Vol] 11.9 g/dL Critically low 12.0-16.0 [facility] Comment on above: Performed By: #### C BC #### [facility] [address] [place] [address] Dr. Dylan Santana IG # 0.02 10e3/ul Normal 0.00-0.03 [facility] Comment on above: Performed By: #### C BC #### [facility] [address] [place] [address] Dr. Dylan Santana IG % 0.4 % Normal 0.0-0.5 [facility] Comment on above: Performed By: #### C BC #### [facility] [address] [place] [address] Dr. Dylan Santana LYMPH # 1.8 103/ul Normal 1.2-3.8 [facility] Comment on above: Performed By: #### C BC #### [facility] [address] [place] [address] Dr. Dylan Santana Lymphocytes/100 WBC (Bld) 34.8 % Normal 20.5-60.0 [facility] Comment on above: Performed By: #### C BC #### [facility] [address] [place] [address] Dr. Dylan Santana MANUAL DIFF REQ NO Normal [facility] Comment on above: Performed By: #### C BC #### [facility] [address] [place] [address] Dr. Dylan Santana MCH (RBC) [Entitic mass] 30.2 pg Normal 26.7-34.0 [facility] Comment on above: Performed By: #### C BC #### [facility] [address] [place] [address] Dr. Dylan Santana MCHC (RBC) [Mass/Vol] 32.9 g/dL Normal 29.9-35.2 [facility] Comment on above: Performed By: #### C BC #### [facility] [address] [place] [address] Dr. Dylan Santana MCV (RBC) [Entitic vol] 91.9 fL Normal 81.0-99.0 [facility] Comment on above: Performed By: #### C BC #### [facility] [address] [place] [address] Dr. Dylan Santana MONO # 0.6 103/ul Normal 0.3-0.8 [facility] Comment on above: Performed By: #### C BC #### [facility] [address] [place] [address] Dr. Dylan Santana Monocytes/100 WBC (Bld) 12.5 % Critically high 1.7-12.0 [facility] Comment on above: Performed By: #### C BC #### [facility] [address] [place] [address] Dr. Dylan Santana NEUT # 2.4 103/ul Normal 1.4-6.5 [facility] Comment on above: Performed By: #### C BC #### [facility] [address] [place] [address] Dr. Dylan Santana Neutrophils/100 WBC (Bld) 46.8 % Normal 43.0-75.0 [facility] Comment on above: Performed By: #### C BC #### [facility] [address] [place] [address] Dr. Dylan Santana Platelet mean volume (Bld) [Entitic vol] 10.1 fL Normal 9.5-13.5 [facility] Comment on above: Performed By: #### C BC #### [facility] [address] [place] [address] Dr. Dylan Santana PLT 159 103/ul Normal 150-450 [facility] Comment on above: Performed By: #### C BC #### [facility] [address] [place] [address] Dr. Dylan Santana RBC 3.94 106/ul Critically low 4.20-5.40 [facility] Comment on above: Performed By: #### C BC #### [facility] [address] [place] [address] Dr. Dylan Santana WBC 5.1 103/ul Normal 4.0-11.0 [facility] Comment on above: Performed By: #### C BC #### [facility] [address] [place] [address] Dr. Dylan Santana BASO # 0.0 103/ul Normal 0.0-0.1 [facility] Comment on above: Performed By: #### C BC #### [facility] [address] [place] [address] Dr. Dylan Santana Basophils/100 WBC (Bld) 0.6 % Normal 0.2-2.0 [facility] Comment on above: Performed By: #### C BC #### [facility] [address] [place] [address] Dr. Dylan Santana EO # 0.3 103/ul Normal 0.0-0.7 [facility] Comment on above: Performed By: #### C BC #### [facility] [address] [place] [address] Dr. Dylan Santana Eosinophils/100 WBC (Bld) 5.0 % Normal 0.9-7.0 [facility] Comment on above: Performed By: #### C BC #### [facility] [address] [place] [address] Dr. Dylan Santana Erythrocyte distribution width (RBC) [Ratio] 12.1 % Normal 11.0-15.0 [facility] Comment on above: Performed By: #### C BC #### [facility] [address] [place] [address] Dr. Dylan Santana Hematocrit (Bld) [Volume fraction] 39.3 % Normal 36.0-48.0 [facility] Comment on above: Performed By: #### C BC #### [facility] [address] [place] [address] Dr. Dylan Santana Hemoglobin (Bld) [Mass/Vol] 12.9 g/dL Normal 12.0-16.0 [facility] Comment on above: Performed By: #### C BC #### [facility] [address] [place] [address] Dr. Dylan Santana IG # 0.02 10e3/ul Normal 0.00-0.03 [facility] Comment on above: Performed By: #### C BC #### [facility] [address] [place] [address] Dr. Dylan Santana IG % 0.4 % Normal 0.0-0.5 [facility] Comment on above: Performed By: #### C BC #### [facility] [address] [place] [address] Dr. Dylan Santana LYMPH # 1.4 103/ul Normal 1.2-3.8 [facility] Comment on above: Performed By: #### C BC #### [facility] [address] [place] [address] Dr. Dylan Santana Lymphocytes/100 WBC (Bld) 26.9 % Normal 20.5-60.0 [facility] Comment on above: Performed By: #### C BC #### [facility] [address] [place] [address] Dr. Dylan Santana MANUAL DIFF REQ NO Normal [facility] Comment on above: Performed By: #### C BC #### [facility] [address] [place] [address] Dr. Dylan Santana MCH (RBC) [Entitic mass] 30.2 pg Normal 26.7-34.0 [facility] Comment on above: Performed By: #### C BC #### [facility] [address] [place] [address] Dr. Dylan Santana MCHC (RBC) [Mass/Vol] 32.8 g/dL Normal 29.9-35.2 [facility] Comment on above: Performed By: #### C BC #### [facility] [address] [place] [address] Dr. Dylan Santana MCV (RBC) [Entitic vol] 92.0 fL Normal 81.0-99.0 [facility] Comment on above: Performed By: #### C BC #### [facility] [address] [place] [address] Dr. Dylan Santana MONO # 0.5 103/ul Normal 0.3-0.8 [facility] Comment on above: Performed By: #### C BC #### [facility] [address] [place] [address] Dr. yDlan Santana Monocytes/100 WBC (Bld) 10.1 % Normal 1.7-12.0 [facility] Comment on above: Performed By: #### C BC #### [facility] [address] [place] [address] Dr. Dylan Santana NEUT # 3.0 103/ul Normal 1.4-6.5 [facility] Comment on above: Performed By: #### C BC #### [facility] [address] [place] [address] Dr. Dylan Santana Neutrophils/100 WBC (Bld) 57.0 % Normal 43.0-75.0 [facility] Comment on above: Performed By: #### C BC #### [facility] [address] [address] [address] Dylan Santana Platelet mean volume (Bld) [Entitic vol] 10.3 fL Normal 9.5-13.5 [facility] Comment on above: Performed By: #### C BC #### [facility] [address] [address] [address] Dylan Santana PLT 182 103/ul Normal 150-450 [facility] Comment on above: Performed By: #### C BC #### [facility] [address] [address] [address] Dylan Santana RBC 4.27 106/ul Normal 4.20-5.40 [facility] Comment on above: Performed By: #### C BC #### [facility] [address] [address] [address] Dylan Santana WBC 5.2 103/ul Normal 4.0-11.0 [facility] Comment on above: Performed By: #### C BC #### [facility] [address] [address] [address] HEAD WO CONon [...] YONIS PACHECO Date: 2022-06-10 04:35 Normal [facility] Covid-19 PCR (CVDTB)on 05-24 SARS-CoV-2 (COVID-19) RNA LUIS+probe Ql (Unsp spec) Not detected Normal NOT DETECTED [facility] Comment on above: Result Comment: When diagnostic [...] for this test is supported by the Margie of Health and Human Service's declaration that [...] By: #### L IPID, TSH, CMP #### [facility] [address] [address] [address] Dylan Santana POINT OF CARE GLUCOSEon 05-24 Glucose [Mass/Vol] 169 mg/dL Critically high 74-106 [facility] Comment on above: Performed By: #### C BC #### [facility] [address] [address] [address] Dylan Santana PROF 14(COMP METB)on 022 Albumin [Mass/Vol] 3.5 g/dL Normal 3.4-5.0 [facility] Comment on above: Performed By: #### C MP, HSTROPN #### [facility] [address] [address] [address] Dylan Santana Albumin/Globulin [Mass ratio] 0.9 {ratio} Normal [facility] Comment on above: Performed By: #### C RAUL, HSTROPN #### [facility] [address] [place] [address] Dr. Dylan Santana ALP [Catalytic activity/Vol] 197 U/L Critically high 46-116 [facility] Comment on above: Performed By: #### C RAUL, HSTROPN #### [facility] [address] [address] [address] Dylan Santana ALT [Catalytic activity/Vol] 89 U/L Critically high 14-59 [facility] Comment on above: Performed By: #### C RAUL, HSTROPN #### [facility] [address] [place] [address] Dr. Dylan Santana Anion gap [Moles/Vol] 10.1 mmol/L Normal [facility] Comment on above: Performed By: #### C RAUL, HSTROPN #### [facility] [address] [place] [address] Dr. Dylan Santana AST [Catalytic activity/Vol] 50 U/L Critically high 15-37 [facility] Comment on above: Performed By: #### C RAUL, HSTROPN #### [facility] [address] [place] [address] Dr. Dylan Santana Bilirubin [Mass/Vol] 0.4 mg/dL Normal 0.2-1.0 [facility] Comment on above: Performed By: #### C RAUL, HSTROPN #### [facility] [address] [place] [address] Dr. Dylan Santana Calcium [Mass/Vol] 9.2 mg/dL Normal 8.5-10.1 [facility] Comment on above: Performed By: #### C RAUL, HSTROPN #### [facility] [address] [place] [address] Dr. Dylan Santana Chloride [Moles/Vol] 101 mmol/L Normal 98-107 [facility] Comment on above: Performed By: #### C RAUL, HSTROPN #### [facility] [address] [address] [address] Dylan Santana CO2 [Moles/Vol] 28.1 mmol/L Normal 21.0-32.0 [facility] Comment on above: Performed By: #### C MP, HSTROPN #### [facility] [address] [address] [address] Dylan Santana Creatinine [Mass/Vol] 1.29 mg/dL Critically high 0.55-1.02 [facility] Comment on above: Performed By: #### C MP, HSTROPN #### [facility] [address] [address] [address] Dylan Santana EGFR-AF KUWAITI 49 mL/min/1.73m2 Critically low >=60 [facility] Comment on above: Performed By: #### C MP, HSTROPN #### [facility] [address] [place] [address] Dr. Dylan Santana EGFR-NON AF KUWAITI 41 mL/min/1.73m2 Critically low >=60 [facility] Comment on above: Performed By: #### C MP, HSTROPN #### [facility] [address] [address] [address] Dylan Santana Globulin (S) [Mass/Vol] 3.9 g/dL Normal [facility] Comment on above: Performed By: #### C MP, HSTROPN #### [facility] [address] [address] [address] Dylan Santana Glucose [Mass/Vol] 231 mg/dL Critically high 74-106 [facility] Comment on above: Performed By: #### C MP, HSTROPN #### [facility] [address] [address] [address] Dylan Santana Potassium [Moles/Vol] 4.2 mmol/L Normal 3.5-5.1 [facility] Comment on above: Performed By: #### C MP, HSTROPN #### [facility] [address] [address] [address] Dylan Santana Protein [Mass/Vol] 7.4 g/dL Normal 6.4-8.2 [facility] Comment on above: Performed By: #### C MP, HSTROPN #### [facility] [address] [place] [address] Dr. Dylan Santana Sodium [Moles/Vol] 135 mmol/L Critically low 136-145 [facility] Comment on above: Performed By: #### C MP, HSTROPN #### [facility] [address] [place] [address] Dr. Dylan Santana Urea nitrogen [Mass/Vol] 21.0 mg/dL Critically high 7.0-18.0 [facility] Comment on above: Performed By: #### C MP, HSTROPN #### [facility] [address] [place] [address] Dr. Dylan Santana Urea nitrogen/Creatinine [Mass ratio] 16.3 mg/mg Normal [facility] Comment on above: Performed By: #### C MP, HSTROPN #### [facility] [address] [place] [address] Dr. Dylan Santana PROF CHEM 8 (BAS METB)on Anion gap [Moles/Vol] 9.2 mmol/L Normal [facility] Comment on above: Performed By: #### L IPID, TSH, CMP #### [facility] [address] [place] [address] Dr. Dylan Santana Calcium [Mass/Vol] 8.9 mg/dL Normal 8.5-10.1 [facility] Comment on above: Performed By: #### L IPID, TSH, CMP #### [facility] [address] [place] [address] Dr. Dylan Santana Chloride [Moles/Vol] 104 mmol/L Normal 98-107 [facility] Comment on above: Performed By: #### L IPID, TSH, CMP #### [facility] [address] [place] [address] Dr. Dylan Santana CO2 [Moles/Vol] 27.8 mmol/L Normal 21.0-32.0 [facility] Comment on above: Performed By: #### L IPID, TSH, CMP #### [facility] [address] [address] [address] Dylan Santana Creatinine [Mass/Vol] 1.14 mg/dL Critically high 0.55-1.02 [facility] Comment on above: Performed By: #### L IPID, TSH, CMP #### [facility] [address] [place] [address] Dr. Dylan Santana EGFR-AF KUWAITI 57 mL/min/1.73m2 Critically low >=60 [facility] Comment on above: Performed By: #### L IPID, TSH, CMP #### [facility] [address] [place] [address] Dr. Dylan Santana EGFR-NON AF KUWAITI 47 mL/min/1.73m2 Critically low >=60 [facility] Comment on above: Performed By: #### L IPID, TSH, CMP #### [facility] [address] [place] [address] Dr. Dylan Santana Glucose [Mass/Vol] 176 mg/dL Critically high 74-106 [facility] Comment on above: Performed By: #### L IPID, TSH, CMP #### [facility] [address] [place] [address] Dr. Dylan Santana Potassium [Moles/Vol] 4.0 mmol/L Normal 3.5-5.1 [facility] Comment on above: Performed By: #### L IPID, TSH, CMP #### [facility] [address] [place] [address] Dr. Dylan Santana Sodium [Moles/Vol] 137 mmol/L Normal 136-145 [facility] Comment on above: Performed By: #### L IPID, TSH, CMP #### [facility] [address] [place] [address] Dr. Dylan Santana Urea nitrogen [Mass/Vol] 21.0 mg/dL Critically high 7.0-18.0 [facility] Comment on above: Performed By: #### L IPID, TSH, CMP #### [facility] [address] [place] [address] Dr. Dylan Santana Urea nitrogen/Creatinine [Mass ratio] 18.4 mg/mg Normal [facility] Comment on above: Performed By: #### L IPID, TSH, CMP #### [facility] [address] [place] [address] Dr. Dylan Santana RESPIRATORY PANEL PLUSon Adenovirus Not detected Normal NOT DETECTED The [facility] Comment on above: Performed By: #### C BC #### [facility] [address] [place] [address] Dr. Dylan Pastor. Parapertusis Not detected Normal NOT DETECTED [facility] Comment on above: Performed By: #### C BC #### [facility] [address] [place] [address] Dr. Dylan Mccurdy Pertussis Not detected Normal NOT DETECTED [facility] Comment on above: Performed By: #### C BC #### [facility] [address] [place] [address] Dr. Dylan Santana Chlamydia Pneumoniae Not detected Normal NOT DETECTED [facility] Comment on above: Performed By: #### C BC #### [facility] [address] [place] [address] Dr. Dylan Santana Coronavirus 229E Not detected Normal NOT DETECTED [facility] Comment on above: Performed By: #### C BC #### [facility] [address] [place] [address] Dr. Dylan Santana Coronavirus HKU1 Not detected Normal NOT DETECTED [facility] Comment on above: Performed By: #### C BC #### [facility] [address] [place] [address] Dr. Dylan Santana Coronavirus NL63 Not detected Normal NOT DETECTED [facility] Comment on above: Performed By: #### C BC #### [facility] [address] [place] [address] Dr. Dylan Santana Coronavirus OC43 Not detected Normal NOT DETECTED [facility] Comment on above: Performed By: #### C BC #### [facility] [address] [place] [address] Dr. Dylan Santana Influenza A H1 2009 Not detected Normal NOT DETECTED [facility] Comment on above: Performed By: #### C BC #### [facility] [address] [address] [address] Dylan Santana Influenza A H3 Not detected Normal NOT DETECTED [facility] Comment on above: Performed By: #### C BC #### [facility] [address] [address] [address] Dylan Santana Influenza B Not detected Normal NOT DETECTED [facility] Comment on above: Performed By: #### C BC #### [facility] [address] [address] [address] Dylan Santana Metapneumovirus Not detected Normal NOT DETECTED [facility] Comment on above: Performed By: #### C BC #### [facility] [address] [place] [address] Dr. Dylan Santana Mycoplas. Pneumoniae Not detected Normal NOT DETECTED [facility] Comment on above: Performed By: #### C BC #### [facility] [address] [place] [address] Dr. Dylan Santana Parainfluenza 1 Not detected Normal NOT DETECTED [facility] Comment on above: Performed By: #### C BC #### [facility] [address] [place] [address] Dr. Dylan Santana Parainfluenza 2 Not detected Normal NOT DETECTED [facility] Comment on above: Performed By: #### C BC #### [facility] [address] [place] [address] Dr. Dylan Santana Parainfluenza 3 Not detected Normal NOT DETECTED [facility] Comment on above: Performed By: #### C BC #### [facility] [address] [address] [address] Dylan Santana Parainfluenza 4 Not detected Normal NOT DETECTED [facility] Comment on above: Performed By: #### C BC #### [facility] [address] [place] [address] Dr. Dylan Santana Rhino/Enterovirus Not detected Normal NOT DETECTED [facility] Comment on above: Performed By: #### C BC #### [facility] [address] [place] [address] Dr. Dylan Santana RP2 Header 1 RESPIRATORY PANEL: VIRUSES Normal [facility] Comment on above: Performed By: #### C BC #### [facility] [address] [place] [address] Dr. Dylan Santana RP2 Header 2 RESPIRATORY PANEL: BACTERIA Normal [facility] Comment on above: Performed By: #### C BC #### [facility] [address] [place] [address] Dr. Dylan Santana RSV Detected Critically abnormal NOT DETECTED [facility] Comment on above: Performed By: #### C BC #### [facility] [address] [place] [address] Dr. Dylan Santana SARS-CoV-2 (COVID-19) RNA LUIS+probe Ql (Unsp spec) Not detected Normal NOT DETECTED [facility] Comment on above: Performed By: #### C BC #### [facility] [address] [place] [address] Dr. Dylan Santana TROPONIN, HIGH SENSITIVITYon 06-10-2022 HSTROP 18.5 pg/mL Normal 4.0-51.3 [facility] Comment on above: Result Comment: CUT- OFF POINTS HAVE BEEN ESTABLISHED BASED ON THE FOURTH UNIVERSAL DEFINITIONS OF MYOCARDIAL INFARCTION. THE UPPER REFERENCE LIMIT (URL) OF TROPONIN, DEFINED THE 99TH PERCENTILE OF cTnI DISTRIBUTION IN A REFERENCE POPULATION, HAS BEEN CONFIRMED THE DECISION THRESHOLD FOR MT DIAGNOSIS. Performed By: #### L IPID, TSH, CMP #### [facility] [address] [place] [address] Dr. Dylan Santana HSTROP 18.8 pg/mL Normal 4.0-51.3 [facility] Comment on above: Result Comment: CUT- OFF POINTS HAVE BEEN ESTABLISHED BASED ON THE FOURTH UNIVERSAL DEFINITIONS OF MYOCARDIAL INFARCTION. THE UPPER REFERENCE LIMIT (URL) OF TROPONIN, DEFINED THE 99TH PERCENTILE OF cTnI DISTRIBUTION IN A REFERENCE POPULATION, HAS BEEN CONFIRMED THE DECISION THRESHOLD FOR MT DIAGNOSIS. Performed By: #### C MP, HSTROPN #### [facility] [address] [place] [address] Dr. Dylan Santana XR CHEST 1 Von [...] by: YONIS PACHECO Date: 2022-06-10 02:13 Normal [facility] ECHOCARDIO M/2D COMPLETEon 1 07-08-2021 ECHOCARDIO M/2D COMPLETE Patient: LIBRA NOONAN Exam Date: 05/08/2022 : 1950 Gender:F Ordering : [facility] Admission #: [id number] Family : Order #: [id number] CLICK HERE TO VIEW EXAM ECHOCARDIOGRAM REPORT [...] M.D. on 05/09/2022 at 20:11 Normal [facility] NM STRESS/REST MULTIon 03-08 NM STRESS/REST MULTI Patient: LIBRA NOONAN Exam Date: 03/08/2022 : 1950 Gender:F Ordering : DR GARRISON BELL M.D. Admission #: [id number] Family : Order #: [id number] CLICK HERE TO VIEW EXAM RADIOLOGY REPORT [...] DEFECT: LOCATION: Basal anterior. Mid-anterior. Apical anterior. [place]. SIZE: Medium (3-4 segments). SEVERITY: Moderate. TYPE: [...] MD on 03/09/2022 at 11:54 Normal [facility] CBC AUTO DIFFon 01-24-2022 BASO # 0.0 103/ul Normal 0.0-0.1 [facility] Comment on above: Performed By: #### C BC #### [facility] [address] [place] [address] Dr. Dylan Santana Basophils/100 WBC (Bld) 0.5 % Normal 0.2-2.0 [facility] Comment on above: Performed By: #### C BC #### [facility] [address] [place] [address] Dr. Dylan Santana EO # 0.2 103/ul Normal 0.0-0.7 [facility] Comment on above: Performed By: #### C BC #### [facility] [address] [place] [address] Dr. Dylan Santana Eosinophils/100 WBC (Bld) 2.8 % Normal 0.9-7.0 [facility] Comment on above: Performed By: #### C BC #### [facility] [address] [place] [address] Dr. Dylan Santana Erythrocyte distribution width (RBC) [Ratio] 13.0 % Normal 11.0-15.0 [facility] Comment on above: Performed By: #### C BC #### [facility] [address] [place] [address] Dr. Dylan Santana Hematocrit (Bld) [Volume fraction] 40.8 % Normal 36.0-48.0 [facility] Comment on above: Performed By: #### C BC #### [facility] [address] [place] [address] Dr. Dylan Santana Hemoglobin (Bld) [Mass/Vol] 13.0 g/dL Normal 12.0-16.0 [facility] Comment on above: Performed By: #### C BC #### [facility] [address] [place] [address] Dr. Dylan Santana IG # 0.04 10e3/ul Critically high 0.00-0.03 [facility] Comment on above: Performed By: #### C BC #### [facility] [address] [place] [address] Dr. Dylan Santana IG % 0.5 % Normal 0.0-0.5 [facility] Comment on above: Performed By: #### C BC #### [facility] [address] [place] [address] Dr. Dylan Santana LYMPH # 2.7 103/ul Normal 1.2-3.8 [facility] Comment on above: Performed By: #### C BC #### [facility] [address] [place] [address] Dr. Dylan Santana Lymphocytes/100 WBC (Bld) 34.3 % Normal 20.5-60.0 [facility] Comment on above: Performed By: #### C BC #### [facility] [address] [place] [address] Dr. Dylan Santana MANUAL DIFF REQ NO Normal [facility] Comment on above: Performed By: #### C BC #### [facility] [address] [place] [address] Dr. Dylan Santana MCH (RBC) [Entitic mass] 30.0 pg Normal 26.7-34.0 [facility] Comment on above: Performed By: #### C BC #### [facility] [address] [place] [address] Dr. Dylan Santana MCHC (RBC) [Mass/Vol] 31.9 g/dL Normal 29.9-35.2 [facility] Comment on above: Performed By: #### C BC #### [facility] [address] [place] [address] Dr. Dylan Santana MCV (RBC) [Entitic vol] 94.0 fL Normal 81.0-99.0 [facility] Comment on above: Performed By: #### C BC #### [facility] [address] [place] [address] Dr. Dylan Santana MONO # 0.4 103/ul Normal 0.3-0.8 [facility] Comment on above: Performed By: #### C BC #### [facility] [address] [place] [address] Dr. Dylan Santana Monocytes/100 WBC (Bld) 5.1 % Normal 1.7-12.0 [facility] Comment on above: Performed By: #### C BC #### [facility] [address] [place] [address] Dr. yDlan Santana NEUT # 4.4 103/ul Normal 1.4-6.5 [facility] Comment on above: Performed By: #### C BC #### [facility] [address] [place] [address] Dr. Dylan Santana Neutrophils/100 WBC (Bld) 56.8 % Normal 43.0-75.0 [facility] Comment on above: Performed By: #### C BC #### [facility] [address] [place] [address] Dr. Dylan Santana Platelet mean volume (Bld) [Entitic vol] 10.7 fL Normal 9.5-13.5 [facility] Comment on above: Performed By: #### C BC #### [facility] [address] [place] [address] Dr. Dylan Santana PLT 212 103/ul Normal 150-450 [facility] Comment on above: Performed By: #### C BC #### [facility] [address] [place] [address] Dr. Dylan Santana RBC 4.34 106/ul Normal 4.20-5.40 [facility] Comment on above: Performed By: #### C BC #### [facility] [address] [place] [address] Dr. Dylan Santana WBC 7.8 103/ul Normal 4.0-11.0 [facility] Comment on above: Performed By: #### C BC #### [facility] [address] [place] [address] Dr. Dylan Santana FREE T4on 01-24-2022 Free T4 [Mass/Vol] 1.02 ng/dL Normal 0.76-1.46 [facility] Comment on above: Performed By: #### F T4 #### [facility] [address] [place] [address] Dr. Dylan Santana GLYCOHEMOGLOBIN A1Con 2021 ADA RECOMMENDATION SEE BELOW Normal [facility] Comment on above: Result Comment: ADA RECOMMENDED LIMIT 4.0 - 6.0 ADA THERAPEUTIC TARGET < 7.0 ACTION SUGGESTED > 7.0 Performed By: #### C BC #### [facility] [address] [place] [address] Dr. Dylan Santana Glucose [Mass/Vol] 189 mg/dL Normal [facility] Comment on above: Performed By: #### C BC #### [facility] [address] [address] [address] Dylan Santana HbA1c (Bld) [Mass fraction] 8.2 % Critically high 4.5-6.2 [facility] Comment on above: Performed By: #### C BC #### [facility] [address] [address] [address] Dylan Santana LIPID PROFILEon 01-24-2022 CHOL-HDL RATIO NORM SEE BELOW Normal [facility] Comment on above: Result Comment: 3.3 - 4.4 LOW RISK 4.4 - 7.1 AVERAGE RISK 7.1 - 11.0 MODERATE RISK >11.0 HIGH RISK Performed By: #### L IPID, TSH, CMP #### [facility] [address] [address] [address] Dylan Santana Cholesterol [Mass/Vol] 235 mg/dL Critically high <=200 [facility] Comment on above: Performed By: #### L IPID, TSH, CMP #### [facility] [address] [address] [address] Dylan Santana Cholesterol in HDL [Mass/Vol] 64 mg/dL Critically high 40-60 [facility] Comment on above: Performed By: #### L IPID, TSH, CMP #### [facility] [address] [address] [address] Dylan Santana Cholesterol in LDL [Mass/Vol] 139.8 mg/dL Normal [facility] Comment on above: Performed By: #### L IPID, TSH, CMP #### [facility] [address] [address] [address] Dylan Santana Cholesterol.total/C holesterol in HDL [Mass ratio] 3.7 {ratio} Normal [facility] Comment on above: Performed By: #### L IPID, TSH, CMP #### [facility] [address] [address] [address] Dylan Santana HDL NORMAL > or = 60 mg/dl - LO W CARDIOVASCULAR RISK <40 mg/dl - HIGH CARDIOVASCULAR RISK Normal [facility] Comment on above: Performed By: #### L IPID, TSH, CMP #### [facility] [address] [address] [address] Dylan Santana LDL CALC NORMAL SEE BELOW Normal [facility] Comment on above: Result Comment: <100 mg/dl OPTIMAL 100 - 129 mg/dl NEAR OR ABOVE OPTIMAL 130 - 159 mg/dl BORDERLINE HIGH 160 - 189 mg/dl HIGH >190 mg/dl VERY HIGH Performed By: #### L IPID, TSH, CMP #### [facility] [address] [address] [address] Dylan Santana Triglyceride [Mass/Vol] 156 mg/dL Critically high <=150 [facility] Comment on above: Performed By: #### L IPID, TSH, CMP #### [facility] [address] [address] [address] Dylan Santana VLDL CALC 31.2 mg/dL Normal [facility] Comment on above: Performed By: #### L IPID, TSH, CMP #### [facility] [address] [address] [address] Dylan Santana PROF 14(COMP METB)on 022 Albumin [Mass/Vol] 3.3 g/dL Critically low 3.4-5.0 [facility] Comment on above: Performed By: #### L IPID, TSH, CMP #### [facility] [address] [address] [address] Dylan Santana Albumin/Globulin [Mass ratio] 0.9 {ratio} Normal [facility] Comment on above: Performed By: #### L IPID, TSH, CMP #### [facility] [address] [address] [address] Dylan Santana ALP [Catalytic activity/Vol] 109 U/L Normal 46-116 [facility] Comment on above: Performed By: #### L IPID, TSH, CMP #### [facility] [address] [address] [address] Dylan Santana ALT [Catalytic activity/Vol] 25 U/L Normal 14-59 [facility] Comment on above: Performed By: #### L IPID, TSH, CMP #### [facility] [address] [address] [address] Dylan Santana Anion gap [Moles/Vol] 14.7 mmol/L Normal [facility] Comment on above: Performed By: #### L IPID, TSH, CMP #### [facility] [address] [address] [address] Dylan Santana AST [Catalytic activity/Vol] 12 U/L Critically low 15-37 [facility] Comment on above: Performed By: #### L IPID, TSH, CMP #### [facility] [address] [address] [address] Dylan Santana Bilirubin [Mass/Vol] 0.6 mg/dL Normal 0.2-1.0 [facility] Comment on above: Performed By: #### L IPID, TSH, CMP #### [facility] [address] [address] [address] Dylan Santana Calcium [Mass/Vol] 8.8 mg/dL Normal 8.5-10.1 [facility] Comment on above: Performed By: #### L IPID, TSH, CMP #### [facility] [address] [address] [address] Dylan Santana Chloride [Moles/Vol] 102 mmol/L Normal 98-107 [facility] Comment on above: Performed By: #### L IPID, TSH, CMP #### [facility] [address] [address] [address] Dylan Santana CO2 [Moles/Vol] 27.5 mmol/L Normal 21.0-32.0 [facility] Comment on above: Performed By: #### L IPID, TSH, CMP #### [facility] [address] [place] [address] Dr. Dylan Santana Creatinine [Mass/Vol] 1.14 mg/dL Critically high 0.55-1.02 [facility] Comment on above: Performed By: #### L IPID, TSH, CMP #### [facility] [address] [place] [address] Dr. Dylan Santana EGFR-AF KUWAITI 57 mL/min/1.73m2 Critically low >=60 [facility] Comment on above: Performed By: #### L IPID, TSH, CMP #### [facility] [address] [address] [address] Dylan Santana EGFR-NON AF KUWAITI 47 mL/min/1.73m2 Critically low >=60 [facility] Comment on above: Performed By: #### L IPID, TSH, CMP #### [facility] [address] [place] [address] Dr. Dylan Santana Globulin (S) [Mass/Vol] 3.7 g/dL Normal [facility] Comment on above: Performed By: #### L IPID, TSH, CMP #### [facility] [address] [place] [address] Dr. Dylan Santana Glucose [Mass/Vol] 249 mg/dL Critically high 74-106 [facility] Comment on above: Performed By: #### L IPID, TSH, CMP #### [facility] [address] [address] [address] Dylan Santana Potassium [Moles/Vol] 4.2 mmol/L Normal 3.5-5.1 [facility] Comment on above: Performed By: #### L IPID, TSH, CMP #### [facility] [address] [place] [address] Dr. Dylan Santana Protein [Mass/Vol] 7.0 g/dL Normal 6.4-8.2 [facility] Comment on above: Performed By: #### L IPID, TSH, CMP #### [facility] [address] [address] [address] Dylan Santana Sodium [Moles/Vol] 140 mmol/L Normal 136-145 [facility] Comment on above: Performed By: #### L IPID, TSH, CMP #### [facility] [address] [address] [address] Dylan Santana Urea nitrogen [Mass/Vol] 20.0 mg/dL Critically high 7.0-18.0 [facility] Comment on above: Performed By: #### L IPID, TSH, CMP #### [facility] [address] [place], [place] [address] Dr. Dlyan Santana Urea nitrogen/Creatinine [Mass ratio] 17.5 mg/mg Normal [facility] Comment on above: Performed By: #### L IPID, TSH, CMP #### [facility] [address] [place], [place] [address] Dr. Dylan Santana TSHon 01-24-2022 TSH 3.673 uIU/mL Normal 0.358-3.740 [facility] Comment on above: Performed By: #### L IPID, TSH, CMP #### [facility] [address] [address] [address] Dylan Santana COVID Quick Testingon 2021 Result Negative [facility] 09-22-2021 Lab Reports [id number] CD:127 Normal [facility] Vital Signs Date Time Vital Sign Value Performing Clinician Facility 02-09-2025 11:36-0400 Body height 157.48 cm Garrison Bell MD Work Phone: [facility] 02-09-2025 11:36-0400 Body mass index (BMI) [Ratio] 60.7 kg/m2 Garrison Bell MD Work Phone: [facility] 02-09-2025 11:36-0400 Body weight 150.64 kg Garrison Bell MD Work Phone: [facility] 02-09-2025 11:36-0400 Diastolic blood pressure 83 mm[Hg] Garrison Bell MD Work Phone: [facility] 02-09-2025 11:36-0400 Heart rate 79 /min Garrison Bell MD Work Phone: [facility] 02-09-2025 11:36-0400 Respiratory rate 14 /min Garrison Bell MD Work Phone: [facility] 02-09-2025 11:36-0400 SaO2% (BldA) [Mass fraction] 96 % Garrison Bell MD Work Phone: [facility] 02-09-2025 11:36-0400 Systolic blood pressure 150 mm[Hg] Garrison Bell MD Work Phone: [facility] 11-12-2024 12:41-0400 Body height 157.48 cm Jacinto Katko DO Work Phone: [facility] 11-12-2024 12:41-0400 Body mass index (BMI) [Ratio] 59.3 kg/m2 Jacinto Katko DO Work Phone: [facility] 11-12-2024 12:41-0400 Body weight 147.07 kg Jacinto Katko DO Work Phone: [facility] 11-12-2024 12:41-0400 Diastolic blood pressure 57 mm[Hg] Jacinto Katko DO Work Phone: [facility] 11-12-2024 12:41-0400 Heart rate 73 /min Jacinto Katko DO Work Phone: [facility] 11-12-2024 12:41-0400 Respiratory rate 18 /min Jacinto Katko DO Work Phone: [facility] 11-12-2024 12:41-0400 SaO2% (BldA) [Mass fraction] 98 % Jacinto Katko DO Work Phone: [facility] 11-12-2024 12:41-0400 Systolic blood pressure 122 mm[Hg] Jacinto Katko DO Work Phone: [facility] 10-29-2024 11:26-0400 Body height 157.48 cm Jacinto Katko DO Work Phone: [facility] 10-29-2024 11:26-0400 Body mass index (BMI) [Ratio] 58.3 kg/m2 Jacinto Katko DO Work Phone: [facility] 10-29-2024 11:26-0400 Body weight 144.86 kg Jacinto Fraga DO Work Phone: [facility] 10-29-2024 11:26-0400 Diastolic blood pressure 84 mm[Hg] Jacinto Fraga DO Work Phone: [facility] 10-29-2024 11:26-0400 Heart rate 81 /min Jacinto Fraga DO Work Phone: [facility] 10-29-2024 11:26-0400 Respiratory rate 12 /min Jacinto Fraga DO Work Phone: [facility] 10-29-2024 11:26-0400 SaO2% (BldA) [Mass fraction] 98 % Jacinto Fraga DO Work Phone: [facility] 10-29-2024 11:26-0400 Systolic blood pressure 159 mm[Hg] Jacinto Fraga DO Work Phone: [facility] 09-14-2024 10:58-0400 Body height 157.48 cm Jacinto Fraga [facility] 09-14-2024 10:58-0400 Body mass index (BMI) [Ratio] 58 kg/m2 Jacintofelipe Fraga [facility] 09-14-2024 10:58-0400 Body weight 144.01 kg Jacinto Fraga [facility] 09-14-2024 10:58-0400 Diastolic blood pressure 88 mm[Hg] Jacinto Fraga [facility] 09-14-2024 10:58-0400 Heart rate 79 /min Jacintofelipe Fraga [facility] 09-14-2024 10:58-0400 Respiratory rate 14 /min Jacinto Fraga [facility] 09-14-2024 10:58-0400 SaO2% (BldA) [Mass fraction] 99 % Jacintofelipe Fraga [facility] 09-14-2024 10:58-0400 Systolic blood pressure 129 mm[Hg] Jacinto Fraga [facility] 07-08-2024 11:33-0500 Body height 157.48 cm [facility] 07-08-2024 11:33-0500 Body mass index (BMI) [Ratio] 58 kg/m2 [facility] 07-08-2024 11:33-0500 Body weight 143.9 kg [facility] 07-08-2024 11:33-0500 Diastolic blood pressure 83 mm[Hg] [facility] 07-08-2024 11:33-0500 Heart rate 84 /min [facility] 07-08-2024 11:33-0500 Respiratory rate 16 /min [facility] 07-08-2024 11:33-0500 Systolic blood pressure 136 mm[Hg] [facility] 04-06-2024 11:38-0400 Body height 157.48 cm MD Garrison Bell Work Phone: [facility] 04-06-2024 11:38-0400 Body mass index (BMI) [Ratio] 57.8 kg/m2 MD Garrison Bell Work Phone: [facility] 04-06-2024 11:38-0400 Body weight 143.44 kg MD Garrison Bell Work Phone: [facility] 04-06-2024 11:38-0400 Diastolic blood pressure 82 mm[Hg] MD Garrison Bell Work Phone: [facility] 04-06-2024 11:38-0400 Heart rate 77 /min MD Garrison Bell Work Phone: [facility] 04-06-2024 11:38-0400 Respiratory rate 18 /min MD Garrison Bell Work Phone: [facility] 04-06-2024 11:38-0400 SaO2% (BldA) [Mass fraction] 98 % MD Garrison Bell Work Phone: [facility] 04-06-2024 11:38-0400 Systolic blood pressure 128 mm[Hg] MD Garrison Bell Work Phone: [facility] 03-24-2024 10:26-0400 Diastolic blood pressure 81 mm[Hg] MD Garrison Bell Work Phone: [facility] 03-24-2024 10:26-0400 Heart rate 72 /min MD Garrison Bell Work Phone: [facility] 03-24-2024 10:26-0400 Respiratory rate 16 /min MD Garrison Bell Work Phone: [facility] 03-24-2024 10:26-0400 SaO2% (BldA) [Mass fraction] 96 % MD Garrison Bell Work Phone: [facility] 03-24-2024 10:260400 Systolic blood pressure 165 mm[Hg] MD Garrison Bell Work Phone: [facility] 03-24-2024 09:45-0400 Inhaled oxygen flow rate 3 L/min MD Garrison Bell Work Phone: [facility] 03-24-2024 08:54-0400 Body height 157.48 cm MD Garrison Bell Work Phone: [facility] 03-24-2024 08:54-0400 Body weight 144.69 kg MD Garrison Bell Work Phone: [facility] 03-23-2024 08:24-0400 Body height 157.48 cm [facility] 03-23-2024 08:24-0400 Body mass index (BMI) [Ratio] 59.1 kg/m2 [facility] 03-23-2024 08:24-0400 Body temperature 98.5 [degF] [facility] 03-23-2024 08:24-0400 Body weight 146.68 kg [facility] 03-23-2024 08:24-0400 Diastolic blood pressure 85 mm[Hg] [facility] 03-23-2024 08:24-0400 Heart rate 79 /min [facility] 03-23-2024 08:24-0400 Respiratory rate 20 /min [facility] 03-23-2024 08:24-0400 SaO2% (BldA) [Mass fraction] 98 % [facility] 03-23-2024 08:24-0400 Systolic blood pressure 157 mm[Hg] [facility] 01-15-2024 10:44-0400 Body height 157.48 cm MD Garrison Bell Work Phone: [facility] 01-15-2024 10:44-0400 Body mass index (BMI) [Ratio] 56.8 kg/m2 MD Garrison Bell Work Phone: [facility] 01-15-2024 10:44-0400 Body weight 141 kg MD Garrison Bell Work Phone: [facility] 12-04-2023 11:38-0400 Body height 157.48 cm MD Garrison Bell Work Phone: [facility] 12-04-2023 11:38-0400 Body mass index (BMI) [Ratio] 57 kg/m2 MD Garrison Bell Work Phone: [facility] 12-04-2023 11:38-0400 Body weight 141.52 kg MD Garrison Bell Work Phone: [facility] 12-04-2023 11:38-0400 Diastolic blood pressure 80 mm[Hg] MD Garrison Bell Work Phone: [facility] 12-04-2023 11:38-0400 Heart rate 80 /min MD Garrison Bell Work Phone: [facility] 12-04-2023 11:38-0400 Systolic blood pressure 125 mm[Hg] MD Garrison Bell Work Phone: [facility] 10-15-2023 10:57-0400 Diastolic blood pressure 82 mm[Hg] MD Garrison Bell Work Phone: [facility] 10-15-2023 10:57-0400 Heart rate 81 /min MD Garrison Bell Work Phone: [facility] 10-15-2023 10:57-0400 Respiratory rate 16 /min MD Garrison Bell Work Phone: [facility] 10-15-2023 10:57-0400 SaO2% (BldA) [Mass fraction] 97 % MD Garrison Bell Work Phone: [facility] 10-15-2023 10:57-0400 Systolic blood pressure 147 mm[Hg] MD Garrison Bell Work Phone: [facility] 10-15-2023 10:16-0400 Inhaled oxygen flow rate 3 L/min MD Garrison Bell Work Phone: [facility] 10-15-2023 09:44-0400 Body height 157.48 cm MD Garrison Bell Work Phone: [facility] 10-15-2023 09:44-0400 Body weight 141.52 kg MD Garrison Bell Work Phone: [facility] 09-04-2023 11:24-0400 Body height 160.02 cm [facility] 09-04-2023 11:24-0400 Body mass index (BMI) [Ratio] 57 kg/m2 [facility] 09-04-2023 11:24-0400 Body weight 146.11 kg [facility] 09-04-2023 11:24-0400 Diastolic blood pressure 97 mm[Hg] [facility] 09-04-2023 11:24-0400 Heart rate 86 /min [facility] 09-04-2023 11:24-0400 SaO2% (BldA) [Mass fraction] 98 % [facility] 09-04-2023 11:24-0400 Systolic blood pressure 166 mm[Hg] [facility] 06-05-2023 11:30-0500 Body height 160.02 cm Garrison Bell Other [employer] [facility] Other 06-05-2023 11:30-0500 Body mass index (BMI) [Ratio] 55.62 kg/m2 Garrison Bell Other [facility] Other 06-05-2023 11:30-0500 Body weight 142.43 kg Garrison Bell Other [facility] Other 06-05-2023 11:30-0500 Diastolic blood pressure 78 mm[Hg] Garrison Bell Other [facility] Other 06-05-2023 11:30-0500 SaO2% (BldA) [Mass fraction] 98 % Garrison Bell Other [facility] Other 06-05-2023 11:30-0500 Systolic blood pressure 132 mm[Hg] Garrison Bell Other [facility] Other 05-28-2023 11:00-0500 Diastolic blood pressure 97 mm[Hg] MD Garrison Bell Work Phone: [facility] 05-28-2023 11:00-0500 Heart rate 79 /min MD Garrison Bell Work Phone: [facility] 05-28-2023 11:00-0500 Respiratory rate 16 /min MD Garrison Bell Work Phone: [facility] 05-28-2023 11:00-0500 SaO2% (BldA) [Mass fraction] 98 % MD Garrison Bell Work Phone: [facility] 05-28-2023 11:00-0500 Systolic blood pressure 173 mm[Hg] MD Garrison Bell Work Phone: [facility] 05-28-2023 10:15-0500 Inhaled oxygen flow rate 3 L/min MD Garrison Bell Work Phone: [facility] 05-28-2023 10:04-0500 Body height 157.48 cm MD Garrison Bell Work Phone: [facility] 05-28-2023 10:04-0500 Body weight 141.52 kg MD Garrison Bell Work Phone: [facility] 05-07-2023 10:15-0500 Diastolic blood pressure 87 mm[Hg] MD Garrison Bell Work Phone: [facility] 05-07-2023 10:15-0500 Heart rate 74 /min MD Garrison Bell Work Phone: [facility] 05-07-2023 10:15-0500 Respiratory rate 16 /min MD Garrison Bell Work Phone: [facility] 05-07-2023 10:15-0500 SaO2% (BldA) [Mass fraction] 95 % MD Garrison Bell Work Phone: [facility] 05-07-2023 10:15-0500 Systolic blood pressure 173 mm[Hg] MD Garrison Bell Work Phone: [facility] 05-07-2023 09:30-0500 Inhaled oxygen flow rate 3 L/min MD Garrison Bell Work Phone: [facility] 05-07-2023 08:40-0500 Body height 157.48 cm MD Garrison Bell Work Phone: [facility] 05-07-2023 08:40-0500 Body weight 141.52 kg MD Garrison Bell Work Phone: [facility] 03-06-2023 11:30-0400 Body height 160.02 cm Garrison Bell Other [facility] Other 03-06-2023 11:30-0400 Body mass index (BMI) [Ratio] 55.26 kg/m2 Garrison Bell Other [facility] Other 03-06-2023 11:30-0400 Body weight 141.52 kg Garrison Bell Other [employer] [facility] Other 03-06-2023 11:30-0400 Diastolic blood pressure 72 mm[Hg] Garrison Bell Other [facility] Other 03-06-2023 11:30-0400 Respiratory rate 12 /min Garrison Bell Other [facility] Other 03-06-2023 11:30-0400 Systolic blood pressure 118 mm[Hg] Garrison Bell Other [facility] Other 02-12-2023 11:10-0400 Diastolic blood pressure 80 mm[Hg] MD Garrison Bell Work Phone: [facility] 02-12-2023 11:10-0400 Heart rate 80 /min MD Garrison Bell Work Phone: [facility] 02-12-2023 11:10-0400 Respiratory rate 18 /min MD Garrison Bell Work Phone: [facility] 02-12-2023 11:10-0400 SaO2% (BldA) [Mass fraction] 96 % MD Garrison Bell Work Phone: [facility] 02-12-2023 11:10-0400 Systolic blood pressure 145 mm[Hg] MD Garrison Bell Work Phone: [facility] 02-12-2023 10:28-0400 Inhaled oxygen flow rate 3 L/min MD Garrison Bell Work Phone: [facility] 02-12-2023 09:59-0400 Body height 157.48 cm MD Garrison Bell Work Phone: [facility] 02-12-2023 09:59-0400 Body weight 92.07 kg MD Garrison Bell Work Phone: [facility] 12-05-2022 11:30-0400 Body height 160.02 cm Garrison Bell Other [facility] Other 12-05-2022 11:30-0400 Body mass index (BMI) [Ratio] 55.09 kg/m2 Garrison Bell Other [facility] Other 12-05-2022 11:30-0400 Body temperature 97.8 [degF] Garrison Bell Other [facility] Other 12-05-2022 11:30-0400 Body weight 141.07 kg Garrison Bell Other [facility] Other 12-05-2022 11:30-0400 Diastolic blood pressure 50 mm[Hg] Garrison Bell Other [facility] Other 12-05-2022 11:30-0400 Systolic blood pressure 92 mm[Hg] Garrison Bell Other [facility] Other 10-23-2022 09:42-0400 Diastolic blood pressure 80 mm[Hg] MD Garrison Bell Work Phone: [facility] 10-23-2022 09:42-0400 Heart rate 75 /min MD Garrison Bell Work Phone: [facility] 10-23-2022 09:42-0400 Respiratory rate 18 /min MD Grarison Bell Work Phone: [facility] 10-23-2022 09:42-0400 SaO2% (BldA) [Mass fraction] 98 % MD Garrison Bell Work Phone: [facility] 10-23-2022 09:42-0400 Systolic blood pressure 142 mm[Hg] MD Garrison Bell Work Phone: [facility] 10-23-2022 09:03-0400 Inhaled oxygen flow rate 3 L/min MD Garrison Bell Work Phone: [facility] 10-23-2022 08:15-0400 Body height 157.48 cm MD Garrison Bell Work Phone: [facility] 10-23-2022 08:15-0400 Body weight 141.97 kg MD Garrison Bell Work Phone: [facility] 10-09-2022 16:00-0400 Body height 160.02 cm Alka Hankins Other [facility] Other 10-09-2022 16:00-0400 Body mass index (BMI) [Ratio] 55.26 kg/m2 Alka Hankins Other [facility] Other 10-09-2022 16:00-0400 Body weight 141.52 kg Alka Hankins Other [facility] Other 09-04-2022 12:30-0400 Body height 160.02 cm Garrison Bell Other [facility] Other 09-04-2022 12:30-0400 Body mass index (BMI) [Ratio] 55.26 kg/m2 Garrison Bell Other [facility] Other 09-04-2022 12:30-0400 Body weight 141.52 kg Garrison Bell Other [facility] Other 09-04-2022 12:30-0400 Diastolic blood pressure 82 mm[Hg] Garrison Bell Other [facility] Other 09-04-2022 12:30-0400 Systolic blood pressure 128 mm[Hg] Garrison Bell Other [facility] Other 08-07-2022 08:38-0500 Diastolic blood pressure 55 mm[Hg] MD Garrison Bell Work Phone: [facility] 08-07-2022 08:38-0500 Heart rate 78 /min MD Garrison Bell Work Phone: [facility] 08-07-2022 08:38-0500 Respiratory rate 16 /min MD Garrison Bell Work Phone: [facility] 08-07-2022 08:38-0500 SaO2% (BldA) [Mass fraction] 95 % MD Garrison Bell Work Phone: [facility] 08-07-2022 08:38-0500 Systolic blood pressure 130 mm[Hg] MD Garrison Bell Work Phone: [facility] 08-07-2022 07:59-0500 Inhaled oxygen flow rate 3 L/min MD Garrison Bell Work Phone: [facility] 08-07-2022 07:23-0500 Body height 157.48 cm MD Garrison Bell Work Phone: [facility] 08-07-2022 07:23-0500 Body weight 141.97 kg MD Garrison Bell Work Phone: [facility] 02-27-2022 14:15-0400 Body height 160.02 cm Zena García Other [facility] Other 02-27-2022 14:15-0400 Body mass index (BMI) [Ratio] 53.67 kg/m2 Zena García Other [facility] Other 02-27-2022 14:15-0400 Body weight 137.44 kg Zena García Other [facility] Other 02-06-2022 15:00-0400 Body height 160.02 cm Zena García Other [facility] Other 02-06-2022 15:00-0400 Body mass index (BMI) [Ratio] 53.67 kg/m2 Zena García Other [facility] Other 02-06-2022 15:00-0400 Body weight 137.44 kg Zena García Other [facility] Other 01-03-2022 10:35-0400 Body height 160.02 cm Jazz Nance Other [facility] Other 01-03-2022 10:35-0400 Body mass index (BMI) [Ratio] 53.67 kg/m2 Jazz Nance Other [facility] Other 01-03-2022 10:35-0400 Body temperature 98.5 [degF] Jazz Nance Other [facility] Other 01-03-2022 10:35-0400 Body weight 137.44 kg Jazz Nance Other [facility] Other 01-03-2022 10:35-0400 SaO2% (BldA) [Mass fraction] 95 % Jazz Nance Other [facility] Other 11-06-2021 15:45-0400 Body height 160.02 cm Zena García Other [facility] Other 03-22-2021 10:45-0400 Body height 160.02 cm Zena García Other [facility] Other 03-22-2021 10:45-0400 Body mass index (BMI) [Ratio] 50.3 kg/m2 Zena García Other [facility] Other 03-22-2021 10:45-0400 Body weight 128.82 kg Zena García Other [facility] Other Encounters Encounter Date Encounter Type Care Provider Facility Start: 02-09-2025 End: 02-09-2025 ambulatory Garrison Bell MD Work Phone: [facility] Work Phone: Start: 02-09-2025 End: 02-09-2025 Patient encounter procedure Garrison Bell MD -[facility] Work Phone: Start: 11-19-2024 End: 11-19-2024 ambulatory [facility] Start: 11-12-2024 End: 11-12-2024 ambulatory Jacinto Katko DO Work Phone: [facility] Work Phone: Start: 11-12-2024 End: 11-12-2024 Patient encounter procedure Jacinto Marianko DO Work Phone: [facility] Work Phone: Start: 10-30-2024 Non-patient / Non-visit Jeffre y Katko DO Work Phone: [facility] Work Phone: Start: 10-29-2024 End: 10-29-2024 ambulatory Jacinto Katko DO Work Phone: [facility] Work Phone: Start: 10-29-2024 End: 10-29-2024 Patient encounter procedure Jacinto Katko DO Work Phone: [facility] Work Phone: Start: 10-20-2024 ambulatory [facility] Start: 10-15-2024 Non-patient / Non-visit Jeffre y Katko DO Work Phone: [facility] Work Phone: Start: 09-16-2024 Non-patient / Non-visit Jeffre y Katko DO Work Phone: [facility] Work Phone: Start: 09-16-2024 End: 09-16-2024 ambulatory MIL[facility] GREEN [facility] Start: 09-14-2024 End: 09-14-2024 ambulatory Jacinto Fraga [facility] Work Phone: Start: 09-14-2024 End: 09-14-2024 Patient encounter procedure Jacinto Fraga [facility] Work Phone: Start: 09-07-2024 Non-patient / Non-visit Jacinto Kate verduzco [facility] Work Phone: Start: 09-05-2024 Non-patient / Non-visit Jacinto Kate dax [facility] Work Phone: Start: 09-04-2024 End: 09-04-2024 ambulatory Jacinto Dominguez [facility] Work Phone: Start: 09-04-2024 End: 09-04-2024 [facility] Start: 09-04-2024 Non-patient / Non-visit Jacinto Kate dax HOLLAND [facility] Work Phone: Start: 07-08-2024 End: 07-08-2024 ambulatory [facility] Work Phone: Start: 07-08-2024 End: 07-08-2024 Patient encounter procedure [facility] Work Phone: Start: 07-07-2024 End: 07-07-2024 ambulatory [facility] Work Phone: Start: 07-07-2024 End: 07-07-2024 Patient encounter procedure [facility] Work Phone: Start: 06-30-2024 End: 01-07-2025 ambulatory [facility] Work Phone: Start: 06-30-2024 End: 06-30-2024 Patient encounter procedure [facility] Work Phone: Start: 04-06-2024 End: 04-06-2024 ambulatory MD Garrison Bell Work Phone: [facility] Work Phone: Start: 04-06-2024 End: 04-06-2024 Patient encounter procedure MD Garrison Bell Work Phone: [facility] Work Phone: Start: 03-24-2024 Non-patient / Non-visit MD Chelsea Bell Work Phone: [facility] Work Phone: Start: 03-24-2024 End: 03-24-2024 Admission to same day surgery center MD Garrison Bell Work Phone: [facility] Work Phone: Start: 03-24-2024 End: 03-24-2024 ambulatory MD Garrison Bell Work Phone: [facility] Work Phone: Start: 03-23-2024 End: 03-23-2024 ambulatory [facility] Work Phone: Start: 03-23-2024 End: 03-23-2024 Patient encounter procedure [facility] Work Phone: Start: 03-17-2024 End: [...] SWS DERM Start: 03-16-2024 Non-patient / [facility] Work Phone: Start: 03-16-2024 End: 03-16-2024 ambulatory [facility] Start: 03-12-2024 End: 03-12-2024 ambulatory [facility] Work Phone: Start: 03-12-2024 End: 03-12-2024 Patient encounter procedure [facility] Work Phone: Start: 03-10-2024 End: 03-10-2024 ambulatory [facility] Work Phone: Start: 03-10-2024 End: 03-10-2024 Patient encounter procedure [facility] Work Phone: Start: 01-15-2024 End: 01-15-2024 ambulatory MD Garrison Bell Work Phone: [facility] Work Phone: Start: 01-15-2024 End: 01-15-2024 Patient encounter procedure MD Garrison Bell Work Phone: [facility] Work Phone: Start: 01-09-2024 Non-patient / Non-visit MD Chelsea Bell Work Phone: [facility] Work Phone: Start: 12-30-2023 Non-patient / Non-visit MD Chelsea Bell Work Phone: [facility] Work Phone: Start: 12-09-2023 Non-patient / Non-visit MD Chelsea Bell Work Phone: [facility] Work Phone: Start: 12-04-2023 End: 12-04-2023 ambulatory MD Garrison Bell Work Phone: [facility] Work Phone: Start: 12-04-2023 End: 12-04-2023 Patient encounter procedure MD Garrison Bell Work Phone: [facility] Work Phone: Start: 11-29-2023 Non-patient / Non-visit MD Chelsea Bell Work Phone: [facility] Work Phone: Start: 11-25-2023 End: 11-25-2023 ambulatory [facility] Start: 11-04-2023 Non-patient / Non-visit MD Chelsea Bell Work Phone: [facility] Work Phone: Start: 10-17-2023 End: 10-17-2023 ambulatory MD Garrison Bell Work Phone: [facility] Work Phone: Start: 10-17-2023 End: 10-17-2023 Patient encounter procedure MD Garrison Bell Work Phone: [facility] Work Phone: Start: 10-17-2023 Non-patient / Non-visit MD Chelsea Bell Work Phone: [facility] Work Phone: Start: 10-15-2023 Non-patient / Non-visit MD Chelsea Bell Work Phone: [facility] Work Phone: Start: 10-15-2023 End: 10-15-2023 Admission to same day surgery center MD Garrison Bell Work Phone: [facility] Work Phone: Start: 10-15-2023 End: 10-15-2023 ambulatory MD Garrison Bell Work Phone: [facility] Work Phone: Start: 10-10-2023 End: 10-10-2023 ambulatory [facility] Work Phone: Start: 10-10-2023 End: 10-10-2023 Patient encounter procedure [facility] Work Phone: Start: 09-04-2023 End: 09-04-2023 Patient encounter procedure [facility] Work Phone: Start: 08-16-2023 Non-patient / Non-visit [facility] Work Phone: Start: 07-15-2023 End: 07-15-2023 ambulatory Garrison Bell Other [facility] Other Start: 07-15-2023 Telephone encounter Garrison Bell [facility] Start: 06-07-2023 End: 06-07-2023 ambulatory Garrison Bell Other [facility] Other Start: 06-07-2023 Telephone encounter Garrison Bell [facility] Start: 06-05-2023 End: 06-05-2023 ambulatory Garrison Bell Other [facility] Other Start: 06-05-2023 Office outpatient vi sit 25 minutes Garrison Bell [facility] Start: 05-28-2023 (Procedure) Boyd Villanueva [facility] Start: 05-28-2023 End: 05-28-2023 Admission to same day surgery center MD Garrison Bell Work Phone: [facility] Work Phone: Start: 05-28-2023 End: 05-28-2023 ambulatory MD Garrison Bell Work Phone: [facility] Work Phone: Start: 05-20-2023 End: 05-20-2023 ambulatory Eric Villanueva Other [facility] Other Start: 05-20-2023 Office outpatient vi sit 25 minutes Eric Felter [facility] [place] Start: 05-07-2023 (Procedure) Short Eric Gilesgiuliano [facility] Start: 05-07-2023 End: 05-07-2023 ambulatory Eric Villanueva Other [facility] Other Start: 05-07-2023 End: 05-07-2023 Admission to same day surgery center MD Garrison Bell Work Phone: [facility] Work Phone: Start: 04-23-2023 End: 04-23-2023 Patient encounter procedure MD Garrison Bell Work Phone: [facility] Start: 04-23-2023 End: 04-23-2023 ambulatory MD Garrison Bell Work Phone: [facility] Work Phone: Start: 04-23-2023 Office outpatient vi sit 25 minutes Eric Villanueva [facility] [place] Start: 03-06-2023 End: 03-06-2023 ambulatory Garrison Bell Other [facility] Other Start: 03-06-2023 Office outpatient vi sit 15 minutes Garrison Bell [facility] Start: 02-28-2023 End: 02-28-2023 ambulatory Eric Villanueva Other [facility] Other Start: 02-28-2023 Office outpatient vi sit 15 minutes Eric Gileser [facility] [place] Start: 02-12-2023 (Procedure) Short Eric Villanueva [facility] Start: 02-12-2023 End: 02-12-2023 Admission to same day surgery center MD Garrison Bell Work Phone: [facility] Work Phone: Start: 02-12-2023 End: 02-12-2023 ambulatory MD Garrison Bell Work Phone: [facility] Work Phone: Start: 02-07-2023 End: 02-07-2023 ambulatory Eric Villanueva Other [facility] Other Start: 02-07-2023 Office outpatient vi sit 25 minutes Eric Villanueva [facility] [place] Start: 01-01-2023 End: 01-01-2023 ambulatory Garrison Bell Other [facility] Other Start: 01-01-2023 Telephone encounter Garrison Bell [facility] Start: 12-31-2022 End: 12-31-2022 ambulatory Garrison Bell Other [facility] Other Start: 12-31-2022 Telephone encounter Garrison Bell [facility] Start: 12-05-2022 End: 12-05-2022 ambulatory Garrison Bell Other [facility] Other Start: 12-05-2022 Office outpatient vi sit 25 minutes Garrison Bell [facility] Start: 11-27-2022 End: 11-27-2022 ambulatory Garrison Bell Other [facility] Other Start: 11-27-2022 Telephone encounter Garrison Bell [facility] Start: 11-06-2022 End: 11-07-[address] GARRISON BELL Facility: Start: 11-05-2022 End: 11-05-2022 ambulatory MD Garrison Bell Work Phone: [facility] Work Phone: Start: 11-05-2022 End: 11-05-2022 Patient encounter procedure MD Garrison Bell Work Phone: [facility] Start: 10-23-2022 (Procedure) Short Eric Villanueva [facility] Start: 10-23-2022 End: 10-23-2022 ambulatory Eric Villanueva Other [facility] Other Start: 10-23-2022 End: 10-23-2022 Admission to same day surgery center MD Garrison Bell Work Phone: [facility] Work Phone: Start: 10-10-2022 End: 10-10-2022 ambulatory Eric Villanueva Other [facility] Other Start: 10-10-2022 Telephone encounter Eric MOHAN [facility] Start: 10-09-2022 End: 10-09-2022 Patient encounter procedure MD Garrison Bell Work Phone: [facility] Start: 10-09-2022 End: 10-09-2022 ambulatory Alka Hankins Other [facility] Other Start: 10-09-2022 Office outpatient ne w 45 minutes Alka Hankins [facility] Start: 09-04-2022 End: 09-04-2022 ambulatory Garrison Bell Other [facility] Other Start: 09-04-2022 Office outpatient vi sit 15 minutes Garrison Bell [facility] Start: 08-24-2022 End: 08-24-2022 ambulatory Eric Villanueva Other [facility] Other Start: 08-24-2022 Telephone encounter Eric MOHAN [facility] Start: 08-22-2022 End: 08-23-2022 ambulatory ZENA PAINTERRY Facility:[facility] Start: 08-22-2022 End: 08-22-2022 Patient encounter procedure ZENA POTTER [facility] Start: 08-14-2022 End: 08-14-2022 ambulatory Eric Villanueva Other [facility] Other Start: 08-14-2022 Office outpatient vi sit 25 minutes Eric Villanueva [facility] [place] Start: 08-07-2022 End: 08-07-2022 Admission to same day surgery center MD Garrison Bell Work Phone: [facility] Work Phone: Start: 08-07-2022 End: 08-07-2022 ambulatory MD Garrison Bell Work Phone: [facility] Work Phone: Start: 07-27-2022 End: 07-27-2022 ambulatory Garrison Bell Other [facility] Other Start: 07-27-2022 Telephone encounter Garrison Bell [facility] Start: 07-26-2022 End: 07-27-[address] GARRISON BELL Facility: Start: 07-17-2022 End: 07-17-2022 ambulatory Eric Villanueva Other [facility] Other Start: 07-17-2022 Telephone encounter Eric Villanueva [facility] Start: 06-19-2022 Adult health examination Eric Villanueva Other [facility] Other Start: 06-19-2022 End: 06-20-[address] GARRISON BELL Facility: Start: 06-10-2022 End: 06-11-[address] GARRISON BELL Facility:[facility] Start: 05-08-2022 End: 05-09-[address] GARRISON BELL Facility:[facility] Start: 04-16-2022 End: 04-16-2022 ambulatory Eric Villanueva Other [facility] Other Start: 04-16-2022 Telephone encounter Eric MOHAN [facility] Start: 03-26-2022 End: 03-26-2022 ambulatory Eric Villanueva Other [facility] Other Start: 03-26-2022 Telephone encounter Eric MOHAN [facility] Start: 03-13-2022 End: 03-13-2022 ambulatory Eric Changiuliano Other [facility] Other Start: 03-13-2022 Telephone encounter Eric MOHAN [employer] Start: 03-12-2022 End: 03-12-2022 ambulatory Eric Villanueva Other [facility] Other Start: 03-12-2022 Office outpatient ne w 45 minutes Eric Villanueva [facility] [place] Start: 03-09-[address] GARRISON BELL Facil ity:[facility] Start: 03-08-2022 End: 03-09-[address] GARRISON BELL Facility:[facility] Start: 02-27-2022 End: 02-27-2022 ambulatory Zena García Other [facility] Other Start: 02-27-2022 Patient encounter procedure Zena García [facility] Start: 02-22-2022 End: 02-22-2022 ambulatory rEic Villanueva Other [facility] Other Start: 02-22-2022 Telephone encounter Eric MOHAN [employer] Start: 02-06-2022 End: 02-06-2022 ambulatory Zena García Other [facility] Other Start: 02-06-2022 Office outpatient vi sit 25 minutes Zenaanna García [facility] Start: 01-24-2022 End: 01-25-[address] GARRISON BELL Facility: Start: 01-03-2022 End: 01-03-2022 ambulatory Jazz Nance Other [facility] Other Start: 01-03-2022 Office outpatient vi sit 25 minutes Jazz Melendezmond [facility] Start: 11-06-2021 End: 11-06-2021 ambulatory Zena Ricky Other [facility] Other Start: 11-06-2021 Office outpatient vi sit 15 minutes Zena Hendrixarney [facility] Start: 09-06-2021 ambulatory ZENA POTTER Facility :[facility] Start: 08-08-2021 End: 08-08-2021 ambulatory Zena Ricky Other [facility] Other Start: 08-08-2021 Office outpatient vi sit 15 minutes Zena Hendrixarney [facility] Start: 03-22-2021 Office outpatient vi sit 15 minutes Zena Hendrixarney [facility] Procedures Date Procedure Procedure Detail Performing Clinician Start: 09-04-2024 Urine culture Jacinto whitney DO Start: 03-24-2024 Epidural injection o f lumbar spine using fluoroscopic guidance MD Garrsion Bell Work Phone: Start: 03-17-2024 End: 03-17-2024 [...] Activity Detail Author Start: 09-04-2024 Urine culture [facility] Start: 09-04-2024 Bacteria identified in Urine by Culture Urine Culture [facility] Start: 03-24-2024 [facility] Start: 12-04-2023 Patient referral [facility] Work Phone: Start: 10-17-2023 X-ray of left knee XR knee LT 2V [facility] Start: 10-17-2023 XR Knee - left 2 Views [facility] Start: 10-15-2023 [facility] Start: 05-28-2023 [facility] Start: 05-07-2023 [facility] Start: 02-12-2023 [facility] Start: 10-23-2022 [facility] Start: 08-07-2022 [facility] Comprehensive metabo lic 2000 panel - Serum or Plasma [facility] CT Chest WO and W contrast IV [facility] Dermatopathology exam Dermatopat hology exam Pathology and Cytology Timed Neoplasm of unspecified behavior of bone, soft tissue, and skin Release Upon Ordering for 1 Occurrences starting 03/17/2024 [facility] Work Phone: Comment on above: Release Upon Ordering for 1 Occurrences starting 03/17/2024 Patient Education [facility] Work Phone: Patient referral [facility] Work Phone: Renal function 1999 panel - Serum or Plasma [facility] Renal function 1999 panel - Serum or Plasma [facility] Urine culture [facility] Kidney - bilateral [facility] Thyroid gland [facility] Immunizations Immunization Date Immunization Notes Care Provider [facility] 06-05-2022 Prevnar 20 Eric Villanueva Other [facility] 04-17-2022 COVID-19 Pfizer (Pediatric) Eric Villanueva Other [facility] 04-17-2022 influenza virus vaccine, split virus (incl. purified surface antigen) Eric Villanueva Other [employer] [facility] [employer] Other 04-17-2022 influenza virus vaccine, unspecified formulation [facility] 04-14-2021 COVID-19 Vaccine Pfi zer - Documentation Purposes Only Eric Villanueva Other [facility] 04-14-2021 influenza virus vaccine, split virus (incl. purified surface antigen) Eric Villanueva Other [employer] [facility] [employer] Other 04-14-2021 influenza virus vaccine, unspecified formulation [facility] 03-24-2021 SARS-CoV-2 (COVID-19 ) Ad26 vaccine, recombinant ZENA POTTER [facility] 03-22-2021 Kenalog -40 mg Zena quintero Other [facility] Other 11-16-2020 Kenalog -40 mg Zena quintero Other [facility] Other 08-22-2020 SARS-CoV-2 (COVID-19 ) Ad26 vaccine, recombinant ZENA POTTER [facility] 07-25-2020 SARS-CoV-2 (COVID-19 ) Ad26 vaccine, recombinant ZENA POTTER [facility] 06-20-2020 zoster vaccine, live Eric Villanueva Other [facility] 01-07-2020 zoster vaccine, live Eric Villanueva Other [facility] 05-05-2019 influenza virus vaccine, split virus (incl. purified surface antigen) Eric Villanueva Other [facility] [employer] Other 05-05-2019 influenza virus vaccine, unspecified formulation [facility] 04-07-2018 influenza virus vaccine, split virus (incl. purified surface antigen) Eric Villanueva Other [facility] Other 04-07-2018 influenza virus vaccine, unspecified formulation [facility] 03-21-2016 diphtheria, tetanus toxoids and acellular pertussis vaccine, unspecified formulation Eric Villanueva Other [facility] 12-01-2015 pneumococcal polysaccharide vaccine, 23 valent Eric Villanueva Other [facility] 03-23-2013 pneumococcal conjuga te vaccine, 13 valent Erci Villanueva Other [facility] pneumococcal Conjuga te, unspecified formulation; Translations: [Need for prophylactic vaccination against Streptococcus pneumoniae (pneumococcus)] Eric Villanueva Other [facility] Other Payers Date Payer Category Payer Unknown [employer] [id number] 2021-Present [address] [place] [address] [id number] 2015 Medicare MEDICARE MEDICAR E PART B [id number] 2015-Present [address] [address] [place] [address] Medicare [id number] 1959 Medicare [id number] 1959 Unknown [id number] 1950 Unknown [id number] [id number]. 727 1950 Unknown [id number] 2.16.840.1.485508.3.579.2. 593 1950 Unknown [id number] 2.16.840.1.466098.3.579.2. 593 1950 Unknown [id number] 2.16.840.1.724580.3.579.2. 593 1950 Unknown [id number] 2.16.840.1.845194.3.579.2. 593 1950 Unknown [id number] 2.16.840.1.000197.3.579.2. 593 1950 Unknown [id number] 2.16.840.1.711063.3.579.2. 593 1950 Unknown [id number] 2.16.840.1.903892.3.579.2. 593 1950 Unknown [id number] 2.16.840.1.492635.3.579.2. 593 1950 Unknown [id number] 2.16.840.1.952868.3.579.2. 593 1950 Unknown [id number] [id number]. 1259 Private Health Insurance [employer] Claims [id number] Self-pay Self Pay [id number] Unknown [employer] [id number] Unknown HCAP/HFA/FAP Active [id number] Social History Date Type Detail Facility Unknown if ever smoked [facility] Other Start: 03-17-2024 Sex Assigned At F [facility] Start: 08-07-2022 End: 09-07-2024 Tobacco smoking status [facility] Never smoked tobacco (finding) [facility] Start: 1950 Sex Assigned At Female F [facility] Tobacco smoking status Never [facility] Start: 03-17-2024 Tobacco use and exposure Smokeless tobacco non-user [facility] Start: 03-17-2024 History of Social function [facility] Start: 1950 Sex assigned at Not on file [facility] Tobacco smoking status [facility] Tobacco smoking consumption unknown [facility] Start: 06-30-2024 End: 11-12-2024 Sex Female (finding) [facility] Medical Equipment Procedure Code Equipment Code Equipment [...] Date & Type Note Facility 11-19-2024 Note [facility] Clinic Note Chief Complaint: Patient here for 1 mo follow up. Patient states she seen the customer experience analyst last week no change with kidneys. Patient [...] of Abnormal ECG, CHF (congestive heart failure) ([facility]), Chronic kidney disease, Coronary artery disease, Diabetes mellitus ([facility]), Hyperlipidemia, and Hypertension. Surgical History She has [...] lower extremities. PSYC (more content not included)... [facility] 11-12-2024 Evaluation note Diagnosis Onset Date Resolution [...] kidney disease acute November 12, 2024 12:30pm [facility] Work Phone: 1(963) 472-924404-29-2025 [facility] Chief Complaint: [...] history of Coronary artery disease, Diabetes mellitus ([facility]), Hyperlipidemia, and Hypertension. Surgical History She has [...] Disp: , Rfl: True Metrix Glucose Meter [facility], See administration instructions., Disp: , Rfl: Last [...] no rales, rhonchi, or (more content not included)...[facility]03-26-2025 Note SUBJECTIVE Reason for Visit: Libra Noonan [...] scheduled for a follow-up appointment with her customer experience analyst in October. 03/16/2024 office visit (Dr. Torres): [...] Diagnosis Date Coronary artery disease Diabetes mellitus ([facility]) Hyperlipidemia Hypertension Past Surgical History: Procedure Laterality Date CARDIAC CATHETERIZATION 03/23/2022 CHOLECYSTECTOMY HYSTERECTOMY TOTAL KNEE ARTHROPLASTY Patient Active Problem List Diagnosis Abnormal cardiovascular stress test Coronary artery disease Hypertension BMI 50.0-59.9, adult ([facility]) Diabetes mellitus ([facility]) Disorder of kidney Dyspnea on exertion Essential hypertension, benign Foraminal stenosis of lumbar region Glaucoma High cholesterol Increased frequency of urination Myalgia and myositis, unspecified Menopausal problem Recurrent UTI Sciatica Symptoms involving urinary system Abscess or cellulitis of scalp Acute pyelonephritis Sepsis ([facility]) Chest pain Chronic pain Degenerative disc disease, lumbar Hair loss Left knee pain Mass of right axilla Mass of right chest wall Other spondylosis with radiculopathy, lumbar region Primary osteoarthritis of left knee Type 2 diabetes mellitus with hyperglycemia ([facility]) Anemia CKD (chronic kidney disease) stage 3, GFR 30-59 ml/min ([facility]) family history includes Heart failure in her [...] oral, Nightly bumetanide (BUMEX) (more content not included)...[facility]03-24-2025 Evaluation note* Diagnosis Onset Date Resolution Status Admit Date Anemia of renal disease acute [facility] 2024 10:54am CKD (chronic kidney disease) stage [...] kidney disease acute October 29, 2024 11:25am [facility] Work Phone: 1(372) 841-921303-24-2025 Evaluation note* Diagnosis Onset Date Resolution Status Admit Date Anemia of renal disease acute [facility] 2024 10:54am CKD (chronic kidney disease) stage [...] kidney disease acute November 12, 2024 12:30pm [facility] Work Phone: 1(178) 946-413601-07-2025 Evaluation note* Diagnosis Onset Date Resolution Status Admit Date Chronic pain acute June 30, 2024 2:41pm Degenerative disc disease, lumbar acute June 30 2:41pm Spondylosis without myelopat hy or radiculopathy, lumbosacral region acute June 30 2:41pm Left carpal tunnel syndrome acute July 07, 2024 1:40pm Right hand pain acute June 242024 1:40pm Trigger finger, right index finger acute July 07 1:40pm [facility] Work Phone: 1(187) 701-752001-07-2025 Evaluation note* Diagnosis Onset Date Resolution Status [...] Urinary frequency acute July 08, 2024 11:25am [facility] Work Phone: 1(422) 459-474001-07-2025 Evaluation note* Diagnosis Onset Date Resolution Status [...] thyroid nodule acute Tim h 2024 10:54am [facility] Work Phone: 1(320) 207-941010-14-2024 Evaluation note* Diagnosis Onset Date Resolution Status [...] radiculopathy, lumbosacral region acute June 30 2:41pm [facility] Work Phone: 1(252) 649-167510-01-2024 [facility] History of Present illness Narrative* Renetta Nguyen [...] lesions, pending biopsy results documented in [facility] encounterTwo [facility] [id number] [facility] Chief Complaint: [...] test results Investigations: Echocar (more content not included)...[facility] 11-25-2023 [facility] [facility] Cardiology Clinic Note Chief [...] size and systolic fu (more content not included)...[facility]* Encounter Date Diagnosis Assessment Notes Treatment Notes Treatment Clinical Notes Jun, Mixed hyperlipidemia (ICD-10 - E78.2) [facility] Other 12-13-2023 Evaluation note* Encounter Date Diagnosis [...] K52.9) declines GI referral at this time. [facility] Other 11-27-2023 Evaluation note* Encounter Date Diagnosis [...] Above note written by Arian Alanis MA, [employer] Machine Tender. Edited and approved by Dr. Eric Villanueva MD. [facility] Other 10-31-2023 Evaluation note* Encounter Date Diagnosis [...] note writ ten by Emi Gutierrez LPN, [employer] Tender. Edited and approved by Dr. Eric Villanueva MD. [facility] Other 09-13-2023 Evaluation note* Encounter Date Diagnosis Assessment Notes Treatment Notes Treatment Clinical Notes Feb, Type 2 diabetes mellitus with hyperglycemia (ICD-10 - E11.65) Goal: Maintain A1c below 7.0% by being compliant with prescribed medications, diet & exercise plan prior to f/u visit. Laboratory results were reviewed with patient. STATUS: New/continous Reviewed glucose of 249 - will increase dose of glipizide. [facility] Other 09-07-2023 Evaluation note* Encounter Date Diagnosis [...] note writ ten by Emi Gutierrez LPN, [employer] Tender. Edited and approved by Dr. Eric Villanueva MD. [facility] Other 08-22-2023 [facility] Evaluation note* Encounter Date Diagnosis Assessment Notes [...] note writ ten by Arian Alanis MA, [employer] Tender. Edited and approved by Dr. Eric Villanueva MD. [facility] Other 07-10-2023 Evaluation note* Encounter Date Diagnosis Assessment Notes Treatment Notes Treatment Clinical Notes Dec, Dysuria (ICD-10 - R30.0) [facility] Other 06-14-2023 Evaluation note* Encounter Date Diagnosis [...] home. Discussed ER if symptoms worsen. 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 Aug, skilled nursing (current) use of insulin (ICD-10 - Z79.4) Aug, Essential (primary) hypertension (ICD-10 - I10) Pt will have labs before next visit. Continue present meds for chronic problem. [facility] Other 03-03-2023 Evaluation note* Encounter Date Diagnosis Assessment Notes Treatment Notes Treatment Clinical Notes Aug, Other spondylosis with radiculopathy, lumbar region (ICD-10 - M47.26) [facility] Other 02-21-2023 Evaluation note* Encounter Date Diagnosis [...] note writ ten by Emi Gutierrez LPN, [employer] Tender. Edited and approved by Dr. Eric Villanueva MD. [facility] Other 02-03-2023 NotePROCEDURE: XR HIP RT 2 [...] authenticated by: MIGUEL ANGEL CABALLERO Date: 2022-07-27 09:17[facility]01-24-[facility]23 Evaluation note* Encounter Date Diagnosis Assessment Notes Treatment Notes Treatment Clinical Notes Jun, Other spondylosis with radiculopathy, lumbar region (ICD-10 - M47.26) [facility] Other 10-24-2022 Evaluation note* Encounter Date Diagnosis Assessment Notes Treatment Notes Treatment Clinical Notes Mar, Other spondylosis with radiculopathy, lumbar region (ICD-10 - M47.26) [facility] Other 09-19-2022 Evaluation note* Encounter Date Diagnosis [...] Above note written by Emi Gutierrez LPN, [employer] Machine Tender. Edited and approved by Dr. Eric Villanueva [...] negative findings were considered in medical decision-making. [facility] Other 09-06-2022 Evaluation note* Encounter Date Diagnosis Assessment Notes Treatment Notes Treatment Clinical Notes Feb, Primary osteoarthritis of left knee (ICD-10 - M17.12) Feb, Acute pain of left knee (ICD-10 - M25.562) [facility] Other 08-16-2022 Evaluation note* Encounter Date Diagnosis [...] pain of left knee (ICD-10 - M25.562) [facility] Other 07-13-2022 Evaluation note* Encounter Date Diagnosis [...] the ER for worsening symptoms or concerns [facility] Other 05-16-2022 Evaluation note* Encounter Date Diagnosis [...] pain of left knee (ICD-10 - M25.562) [facility] Other 02-15-2022 Evaluation note* Encounter Date Diagnosis [...] total right knee replacement (ICD-10 - Z96.651) [facility] Other 09-29-2021 Evaluation note* Encounter Date Diagnosis [...] total right knee replacement (ICD-10 - Z96.651) [facility] Other Evaluation + Plan note No data available for this section [facility] evaluation noteNo InformationNort [employer] Other Evaluation noteNo assessment information available [facility] Work Phone: Evaluation note* Diagnosis Onset Date Resolution Status Hair loss acute Hypercholesteremia acute Left-sided chest pain acute Mass of right axilla acute Mass of right chest wall acu te Type 2 diabetes mellitus with hyperglycemia acute Chronic pain acute Degenerative disc disease, lumbar acute Other spondylosis with radiculopathy, lumbar region acute [facility] Work Phone: Evaluation note* Diagnosis Onset Date Resolution Status Hair loss acute Hypercholesteremia acute Left-sided chest pain acute Mass of right axilla acute Mass of right chest wall acu te Type 2 diabetes mellitus with hyperglycemia acute Chronic pain acute Degenerative disc disease, lumbar acute Other spondylosis with radiculopathy, lumbar region acute Left knee pain acute Primary osteoarthritis of left knee acute [facility] Work Phone: evaluation note* Diagnosis Onset Date Resolution Status Chronic pain acute Degenerative disc disease, lumbar acute Other spondylosis with radiculopathy, lumbar region acute Left knee pain acute Primary osteoarthritis of left knee acute Anemia acute CKD (chronic kidney disease) stage 3, GFR 30-59 ml/min acute [facility] Work Phone: Evaluation note* Diagnosis Onset Date Resolution Status Left knee pain acute Primary osteoarthritis of left knee acute Anemia acute CKD (chronic kidney disease) stage 3, GFR 30-59 ml/min acute Type 2 diabetes mellitus with hyperglycemia acute Chronic pain acute Degenerative disc disease, lumbar acute Other spondylosis with radiculopathy, lumbar region acute [facility] Work Phone: Evaluation note* Diagnosis Onset Date Resolution Status Chronic pain acute Degenerative disc disease, lumbar acute Other spondylosis with radiculopathy, lumbar region acute Left knee pain acute Primary osteoarthritis of left knee acute [facility] Work Phone: Evaluation note* Diagnosis Onset Date Resolution Status Chronic pain acute Degenerative disc disease, lumbar acute Other spondylosis with radiculopathy, lumbar region acute Left knee pain acute Primary osteoarthritis of left knee acute Chronic pain acute Degenerative disc disease, lumbar acute Other spondylosis with radiculopathy, lumbar region acute [facility] Work Phone: Evaluation note* Diagnosis Onset [...] disease) stage 3, GFR 30-59 ml/min acute [id number] acute Secondary hyperparathyroidism acute Type 2 diabetes mellitus wit h diabetic chronic kidney disease acute [facility] Work Phone: Evaluation note* Diagnosis Seborrheic [...] wisdom teeth extract Hospitalization History see above [employer] [facility] [employer] Other [facility] general Narrative - Reported* Type Description Date Medical History Diabetes Medical History Hypertension Medical History Hypercholesteremia Medical History chronic depression Medical History anxiety Surgical History tonsillectomy Surgical History appendectomy Surgical History cholecystectomy Surgical History knee replacement Surgical History hysterectomy Surgical History laparoscopy Surgical History carpal tunnel release Surgical History wisdom teeth extract Hospitalization History see above Hospitalization History [facility] [employer] Other [facility] general Narrative - Reported* Type Description Date Medical History Diabetes Medical History Hypertension Medical History Hypercholesteremia Medical History chronic depression Medical History anxiety Surgical History tonsillectomy Surgical History appendectomy Surgical History cholecystectomy Surgical History knee replacement Surgical History hysterectomy Surgical History laparoscopy Surgical History carpal tunnel release Surgical History wisdom teeth extract Surgical History Epiderral 07/2022 Hospitalization History see above Hospitalization History [facility] [employer] Other Hospital Discharge instructions No data available for this section [facility] Hospital Discharge instructionsAmbulatory Orders* Referral to Nephrology Time Frame: 12/04/23, Location: None Selected [facility] Work Phone: Progress note No data available for this section [facility] reason for referral (narrative)No reason for referral information availableGuern[facility] Work Phone: Reason for Referral Reason *Waiting for appt Uncontrolled type 2 diabetes - on ; A1Cs will be scanned in from 2021. Diagnosis 1 Type 2 diabetes jayda itus with hyperglycemia (E11.65) Referral Organization [facility] Referring Provider First Name Garrison Referring Provider Last Name Ray Referring Provider Specialty Family Medi cine Referred Organization [facility] Endocrinology Referred Provider Akash Hendrix Referred Address [address] [place],[address] Referred Provider Specialty Nurse Eber chavarria Referral Priority Routine General Notes Aylin Muñoz 03:32:36 PM >received today, sent p2p Reason *FU 02/21 Schedule with Ellen Villanueva for possible lumbar injections. Diagnosis 1 Primary osteoarthrit is of left knee (M17.12) Diagnosis 2 Spondylolisthesis of lumbar region (M43.16) Referral Organization [facility] Referring Provider First Name Zena Referring Provider Last Name Ricky Referring Provider Specialty Nurse Tj carrasquillo Referred Organization [facility] Pain Managemen milena Wood Referred Provider Eric Villanueva Referred Address [address] [place],[address] Referred Provider Specialty Pain Medicin e Referral [...] kidney disease) stage 3, GFR 30-59 ml/min [id number] Secondary hyperparathyroidism Type 2 diabetes mellitus with [...] kidney disease) stage 3, GFR 30-59 ml/min [id number] Secondary hyperparathyroidism Type 2 diabetes mellitus with [...] kidney disease) stage 3, GFR 30-59 ml/min [id number] Secondary hyperparathyroidism Type 2 diabetes mellitus with [...] Other Provider Active Start: March 24, 2024 Manufacturing Industrial Engineer Relationship Specialty Start Date End Date Garrison Bell MD [address] [place] [address] PCP - General Family Medicine 09/16/23 Manufacturing Industrial Engineer Relationship Specialty Start Date End Date Garrison Bell MD [address] [place] [address] PCP - General Family Medicine 09/16/23 Team [...] section and content) DATE CREATED AUTHOR 08/24/2022 [facility] DATE CREATED AUTHOR AUTHOR'S ORGANIZ ATION 11/08/2022 [facility] pital DATE CREATED AUTHOR AUTHOR'S ORGANIZ ATION 03/20/2024 [facility] EPIC DATE CREATED AUTHOR AUTHOR'S ORGANIZ ATION 09/08/2024 [facility] DATE CREATED AUTHOR AUTHOR'S ORGANIZ ATION 11/21/2024 [facility] Goals (unrecognized section and content) Goals may [...] BE BASED ON THE PRIMARY CLINICAL RECORDS. [employer] provides no warranty or guarantee of the accuracy or completeness of information in this document.
[2025-03-12 14:23] LABS: Protein Creatinine Ratio Urine 0.44; Total Protein Urine Random 13.8 mg/dL (<=11.9)
[2025-03-12 14:34] LABS: Glucose Urine UA NEGATIVE (NEGATIVE)
[2025-03-12 15:08] LABS: Cast Seen? NONE SEEN #/LPF (NONE SEEN); Crystals Seen? None Seen #/HPF (None Seen)
== END 2025-03-12 14:00 | disposition home or self-care (01) ==
LOC: LAB 13:59
PROVIDERS: PCP Family Medicine; Visit Provider Internal Medicine
DX: N25.81 Secondary hyperparathyroidism of renal origin (principal); N18.9 Chronic kidney disease, unspecified; D63.1 Anemia in chronic kidney disease; I12.9 Hypertensive chronic kidney disease with stage 1 through stage 4 chronic kidney disease, or unspecified chronic kidney disease; E11.22 Type 2 diabetes mellitus with diabetic chronic kidney disease; N18.32 Chronic kidney disease, stage 3b
CPT/HCPCS: 81001; 82570; 84156